=== PATIENT | female | born 1965 | race Two or more races ===

== ENCOUNTER 2020-02-20 13:15 | Outpatient (REF) | payer OTHER, SELFPAY ==
--- NOTE | 2020-02-20 13:19 | MM_ITS ---
EXAMINATION: MM SCREENING DIGITAL BREAST TOMOSYNTHESIS, BILATERAL CLINICAL INFORMATION: Screening. Asymptomatic. The lifetime risk of breast cancer based on the Tyrer-Cuzick Model is 4.7%. COMPARISON: Mammography: February 05, 2019 and studies dating back to February 24, 2015 TECHNIQUE: Digital breast tomosynthesis is performed in both the craniocaudal and mediolateral oblique views along with computer-aided detection (CAD). Synthesized 2D images are generated from the tomosynthesis. FINDINGS: There are scattered areas of fibroglandular density (ACR BI-RADS breast composition Category b). There are no significant masses, abnormal calcifications, or other abnormalities. There are stable bilateral circumscribed densities. MM/MM tomosynthesis screening BI IMPRESSION: There are no significant changes from prior study. ASSESSMENT: BI-RADS 1: Negative RECOMMENDATION: Routine annual mammography screening. This patient's information was entered into a reminder system with a target due date for their next mammogram.
== END 2020-02-20 13:16 | disposition home or self-care (01) ==
LOC: HO.MAMMO 13:15
PROVIDERS: PCP Family Medicine; Visit Provider Family Medicine
DX: Z12.31 Encounter for screening mammogram for malignant neoplasm of breast (principal)
CPT/HCPCS: 77063; 77067

== ENCOUNTER 2020-02-27 12:30 | Outpatient (REF) | payer OTHER, SELFPAY ==
--- NOTE | 2020-02-27 12:54 | XR_ITS ---
EXAMINATION: XR SHOULDER, LEFT CLINICAL INFORMATION: Shoulder pain. COMPARISON: None TECHNIQUE: AP external rotation, Grashey, scapular Y, and axillary views of the left shoulder. FINDINGS: Mild AC joint arthritis. No fracture. Glenohumeral and acromioclavicular alignment is anatomic with normal joint space. No abnormal soft tissue calcifications. XR/XR shoulder LT min 2V IMPRESSION: Mild AC joint arthritis.
[2020-02-27 13:53] LABS: TSH reflex Free T4 2.62 mIU/mL (0.32-4.0)
[2020-02-28 09:37] LABS: Thyroid Peroxidase Antibodies <1 IU/mL (<9)
== END 2020-02-27 12:31 | disposition home or self-care (01) ==
LOC: HO.LAB 12:30
PROVIDERS: PCP Family Medicine; Visit Provider Family Medicine
DX: R79.89 Other specified abnormal findings of blood chemistry (principal); M25.512 Pain in left shoulder
CPT/HCPCS: 36415; 73030; 84443; 86376

== ENCOUNTER 2020-03-20 | Outpatient (REF) | payer OTHER, SELFPAY ==
[2020-03-20 13:02] LABS: Alanine Aminotransferase 11 U/L (0-31); Albumin Level 4.2 g/dL (3.5-5.0); Alkaline Phosphatase 90 U/L (39-117); Aspartate Amino Transferase 9 U/L (5-31); Bilirubin Direct < 0.2 mg/dL (0.0-0.5); Bilirubin Total 0.4 mg/dL (0.0-1.0); Total Protein 6.9 g/dL (6.5-8.0)
[2020-03-26 13:27] LABS: Alpha Fetoprotein 4.6 ng/mL
== END 2020-03-20 00:01 | disposition home or self-care (01) ==
LOC: HO.LAB
PROVIDERS: PCP Family Medicine; Visit Provider Internal Medicine
DX: B18.2 Chronic viral hepatitis C (principal)
CPT/HCPCS: 80076; 82105

== ENCOUNTER 2020-03-20 09:49 | Outpatient (REF) | payer OTHER, SELFPAY ==
--- NOTE | 2020-03-20 | US_ITS ---
EXAMINATION: US ABDOMEN COMPLETE CLINICAL INFORMATION: Chronic hepatitis C. COMPARISON: Ultrasound abdomen complete 04/06/2019 and 04/20/2018. X-ray abdomen 02/11/2017. TECHNIQUE: Real-time imaging of the abdominal viscera. Technically limited study secondary to bowel gas and body habitus. FINDINGS: Exam is slightly limited due to body habitus and overlying bowel gas. PANCREAS: Partially visualized body of the pancreas is homogeneous in echotexture. The head and the tail is not seen. ABDOMINAL AORTA: The proximal, mid, and distal segments are normal in caliber. INFERIOR VENA CAVA: Visualized portions are normal. LIVER: The liver is normal in size. The liver contour is normal. Liver is diffusely echogenic No focal hepatic lesion. There is no intrahepatic biliary duct dilatation seen. GALLBLADDER: Surgically absent. COMMON BILE DUCT: Normal in caliber measuring 0.6 cm in diameter. RIGHT KIDNEY: Normal. No hydronephrosis. No renal calculi or focal parenchymal lesions. The kidney measures 10.3 cm in maximum dimension. LEFT KIDNEY: Normal. No hydronephrosis. No renal calculi or focal parenchymal lesions. The kidney measures 11.0 cm in maximum dimension. SPLEEN: Normal. The spleen measures 9.1 cm in maximum dimension. FREE FLUID: None. US/US abdomen complete IMPRESSION: Hepatic steatosis otherwise no focal lesion seen. Rest of the abdominal ultrasound is unremarkable.
== END 2020-03-20 09:50 | disposition home or self-care (01) ==
LOC: HO.US 09:49
PROVIDERS: PCP Family Medicine; Visit Provider Internal Medicine
DX: B18.2 Chronic viral hepatitis C (principal); K76.0 Fatty (change of) liver, not elsewhere classified
CPT/HCPCS: 76700

== ENCOUNTER 2020-05-01 15:00 | Outpatient (RCR) | payer OTHER, SELFPAY | END 2020-05-01 16:13 | disposition other institution (70) | LOC: HO.PT 15:00 | PROVIDERS: PCP Family Medicine; Visit Provider Family Medicine | DX: M25.512 Pain in left shoulder (principal); M25.511 Pain in right shoulder; M54.9 Dorsalgia, unspecified; G89.29 Other chronic pain | CPT/HCPCS: 97110; 97161 ==

== ENCOUNTER 2020-07-29 15:07 | Outpatient (REF) | payer OTHER, SELFPAY ==
--- NOTE | ~2020-07-29 | XR_ITS ---
EXAMINATION: XR KNEE, LEFT CLINICAL INFORMATION: Pain COMPARISON: None TECHNIQUE: Four views of the left knee. FINDINGS: Bones and soft tissues are normal. No fracture or joint effusion. Alignment is anatomic. Joint spaces are well maintained. No abnormal soft tissue calcification. XR/XR knee LT 4V IMPRESSION: Normal left knee.
== END 2020-07-29 15:08 | disposition home or self-care (01) ==
LOC: HO.XRAY 15:07
PROVIDERS: PCP Family Medicine; Visit Provider Family Medicine
DX: M25.562 Pain in left knee (principal)
CPT/HCPCS: 73564

== ENCOUNTER → 2020-10-21 12:27 | Outpatient (BNVA) | payer OTHER, SELFPAY | PROVIDERS: Visit Provider Physician Assistant | DX: M17.12 Unilateral primary osteoarthritis, left knee (principal) | CPT/HCPCS: 20610; 99202; J1020 ==

== ENCOUNTER 2020-12-16 14:00 | Outpatient (RCR) | payer OTHER, SELFPAY | END 2021-01-23 13:53 | disposition home or self-care (01) | LOC: HO.PT 14:00 | PROVIDERS: PCP Emergency Medicine; Visit Provider Emergency Medicine | DX: M25.562 Pain in left knee (principal) | CPT/HCPCS: 97110; 97140; 97150; 97161 ==

== ENCOUNTER 2021-03-09 13:36 | Outpatient (REF) | payer OTHER, SELFPAY ==
--- NOTE | ~2021-03-09 | MM_ITS ---
EXAMINATION: MM SCREENING DIGITAL BREAST TOMOSYNTHESIS, BILATERAL CLINICAL INFORMATION: Screening. Asymptomatic. The lifetime risk of breast cancer based on the Tyrer-Cuzick Model is 5%. COMPARISON: Mammography: 02/20/2020, 02/05/2019, 07/12/2018, 11/17/2017 TECHNIQUE: Digital breast tomosynthesis is performed in both the craniocaudal and mediolateral oblique views along with computer-aided detection (CAD). Synthesized 2D images are generated from the tomosynthesis. FINDINGS: There are scattered areas of fibroglandular density (ACR BI-RADS breast composition Category b). There are no significant masses, abnormal calcifications, or other abnormalities. Some of the calcifications posterior outer left breast are coarser. The axilla and skin contours are unremarkable. There are no significant changes. MM/MM tomosynthesis screening BI IMPRESSION: There are no significant changes from prior study. ASSESSMENT: BI-RADS 2: Benign RECOMMENDATION: Routine annual mammography screening. This patient's information was entered into a reminder system with a target due date for their next mammogram.
== END 2021-03-09 13:37 | disposition home or self-care (01) ==
LOC: HO.MAMMO 13:36
PROVIDERS: PCP Family Medicine; Visit Provider Family Medicine
DX: Z12.31 Encounter for screening mammogram for malignant neoplasm of breast (principal)
CPT/HCPCS: 77063; 77067

== ENCOUNTER 2021-06-30 09:35 | Outpatient (REF) | payer OTHER, SELFPAY ==
--- NOTE | ~2021-06-30 | US_ITS ---
EXAMINATION: US COMPLETE ABDOMEN WITH LIVER ELASTOGRAPHY CLINICAL INFORMATION: Chronic hepatitis C. COMPARISON: None. TECHNIQUE: Real-time imaging of the abdominal viscera. Noninvasive ultrasound liver fibrosis assessment is performed using Beverley ElastPQ point quantification shear wave elastography (2D-SWE) with a C5-2 MHz transducer. Multiple elastography samples are obtained. FINDINGS: PANCREAS: The visualized pancreatic head and body are normal in appearance. The tail of the pancreas is obscured from visualization by the overlying bowel gas. ABDOMINAL AORTA: The proximal, middle, and distal aortic segments are normal in caliber. INFERIOR VENA CAVA: Visualized portions are normal. LIVER: The liver demonstrates normal size, contour and echogenicity. No focal lesion or intrahepatic biliary duct dilatation. The right lobe measures 13.1 cm in length. The left lobe measures 10.0 cm in length. Portal flow is hepatopedal. Shear wave liver elastography median stiffness is 1.65 m/s (reference: normal median stiffness is 1.3 m/s or less). IQR/median stiffness to assess sampling precision is 0.09 (reference: good quality data set is IQR/median stiffness of 0.15 or less). GALLBLADDER: The gallbladder has been surgically removed. COMMON BILE DUCT: Normal in caliber measuring 0.5 cm in diameter. RIGHT KIDNEY: Normal. No hydronephrosis. No renal calculi or focal parenchymal lesions. The kidney measures 10.3 cm in maximum dimension. LEFT KIDNEY: Normal. No hydronephrosis. No renal calculi or focal parenchymal lesions. The kidney measures 10.0 cm in maximum dimension. SPLEEN: Normal. The spleen measures 9.3 cm in maximum dimension. FREE FLUID: None. US/US abdomen comp w elastography IMPRESSION: 1. Unremarkable complete abdomen ultrasound. Tail of pancreas is not visualized. The gallbladder has been surgically removed. 2. Liver elastography: Median liver stiffness measures 1.65 m/s corresponding to cACLD. REFERENCE: Society of Radiologists in Ultrasound Liver Stiffness Thresholds (2020): LIVER STIFFNESS THRESHOLDS: *Liver Stiffness equal or less than 1.3 m/s: High probability of being normal. *Liver Stiffness less than 1.7 m/s: In the absence of other known clinical signs, rules out compensated advanced chronic liver disease. *Liver Stiffness 1.7-2.1 m/s: Suggestive of compensated advanced chronic liver disease but need further test for confirmation. *Liver Stiffness over 2.1 m/s: Rules in compensated advanced chronic liver disease. *Liver Stiffness over 2.4 m/s: Suggestive of clinically significant portal hypertension. QUALITY OF DATA SET: *IQR/Median value equal or less than 0.15 implies a quality data set. *IQR/Median value over 0.15 implies a poor quality data set. SIGNIFICANT CHANGE FROM PRIOR EXAM: Significant change if liver stiffness measurement is 10% or greater from prior exam. OTHER CONSIDERATIONS: The stage of liver fibrosis may be overestimated in the setting of acute hepatitis, liver inflammation, elevated liver function tests, hepatic vascular congestion, obstructive cholestasis, non-fasting state, and infiltrative diseases such as amyloidosis and lymphoma. In some patients with NAFLD, the liver stiffness thresholds for compensated advanced chronic liver disease may be lower. In causes other than viral hepatitis and NAFLD, liver stiffness thresholds are not well established.
== END 2021-06-30 09:36 | disposition home or self-care (01) ==
LOC: HO.US 09:35
PROVIDERS: PCP Family Medicine; Visit Provider Internal Medicine
DX: B18.2 Chronic viral hepatitis C (principal)
CPT/HCPCS: 76705; 76981

== ENCOUNTER 2021-07-02 14:10 | Outpatient (REF) | payer OTHER, SELFPAY ==
[2021-07-02 14:21] LABS: MANUAL DIFF FLAG NO
[2021-07-02 14:47] LABS: Basophils Percent Auto 0.3 % (0-2); Eosinophils Absolute Auto 0.1 X10*3/uL (0.0-0.4); Eosinophils Percent Auto 1.2 % (0-4); Hematocrit 41.8 % (37.0-47.0); Hemoglobin 14.2 g/dl (12.0-16.0); Imm Gran Abs Auto 0.04 X10*3/uL (0.00-0.03); Imm Gran Pct Auto 0.5 % (0.0-0.4); Lymphocytes Absolute Auto 2.2 X10*3/uL (1.2-4.9); Lymphocytes Percent Auto 29.7 % (20-40); Mean Corpuscular Hemoglobin 31.4 pg (27.0-33.0); Mean Corpuscular Volume 92.5 fL (80.0-98.0); Mean Platelet Volume 11.6 fL (9.4-12.3); Monocytes Absolute Auto 0.4 X10*3/uL (0.1-1.2); Monocytes Percent Auto 5.9 % (2-11); Neutrophils Absolute Auto 4.6 x10*3/uL (2.0-8.3); Neutrophils Percent Auto 62.4 % (45-73); Platelet Count 255 X10*3/uL (160-400); Red Blood Count 4.52 X10*6/uL (4.20-5.50); White Blood Count 7.4 X10*3/uL (4.8-10.8)
[2021-07-02 14:55] LABS: INTERNATIONAL NORM RATIO 1.1 (0.9-1.1); Prothrombin Time 12.1 SEC (9.9-13.0)
[2021-07-02 15:10] LABS: Alanine Aminotransferase 16 U/L (0-31); Albumin Level 4.6 g/dL (3.5-5.0); Alkaline Phosphatase 92 U/L (39-117); Aspartate Amino Transferase 12 U/L (5-31); Bilirubin Direct 0.2 mg/dL (0.0-0.5); Bilirubin Total 0.5 mg/dL (0.0-1.0); Total Protein 7.4 g/dL (6.5-8.0)
[2021-07-05 08:31] LABS: HCV Log PCR <1.18 NOT DETECTED Log IU/mL (NOT DETECTED); HepC Viral Load <15 NOT DETECTED IU/mL (NOT DETECTED)
[2021-07-07 13:11] LABS: Alpha Fetoprotein 4.7 ng/mL
[2021-07-10 14:55] LABS: FIB-ALT 13 U/L (6-29); FIB-Alpha-2-Macroglobulin 386 mg/dL (106-279); FIB-Apolipoprotein A1 177 mg/dL (101-198); FIB-GGT 22 U/L (3-70); FIB-Haptoglobin 178 mg/dL (43-212); FIB-Total Bilirubin 0.5 mg/dL (0.2-1.2); Liver Fibrosis Score 0.31; Liver Fibrosis Stage F1-F2; Nec Inflam Act Grade A0; Nec Inflam Act Score 0.04
== END 2021-07-02 14:11 | disposition home or self-care (01) ==
LOC: HO.LAB 14:10
PROVIDERS: PCP Family Medicine; Visit Provider Internal Medicine
DX: B18.2 Chronic viral hepatitis C (principal)
CPT/HCPCS: 36415; 80076; 81596; 82105; 85025; 85610; 87522

== ENCOUNTER → 2022-02-22 13:59 | Outpatient (BNVA) | payer OTHER, SELFPAY | PROVIDERS: PCP Family Medicine; Visit Provider Urology | DX: R39.89 Other symptoms and signs involving the genitourinary system (principal); R39.198 Other difficulties with micturition | CPT/HCPCS: 51798; 99202 ==

== ENCOUNTER 2022-02-25 07:59 | Outpatient (REF) | payer OTHER, SELFPAY ==
--- NOTE | ~2022-02-25 | US_ITS ---
EXAMINATION: US ABDOMEN COMPLETE CLINICAL INFORMATION: Right upper quadrant pain. COMPARISON: Ultrasound abdomen complete 06/30/2021 and 03/20/2020. X-ray abdomen 02/11/2017. TECHNIQUE: Real-time imaging of the abdominal viscera. FINDINGS: PANCREAS: Normal. ABDOMINAL AORTA: The proximal, mid, and distal segments are normal in caliber. INFERIOR VENA CAVA: Visualized portions are normal. LIVER: Normal. The liver is normal in size. The liver contour is normal. Parenchymal echogenicity is normal. No focal hepatic lesion. There is no intrahepatic biliary duct dilatation seen. GALLBLADDER: Surgically absent. COMMON BILE DUCT: Normal in caliber measuring 0.7 cm in diameter. RIGHT KIDNEY: No hydronephrosis. No renal calculi or focal parenchymal lesions. The kidney measures 10.0 cm in maximum dimension. LEFT KIDNEY: No hydronephrosis. No renal calculi or focal parenchymal lesions. The kidney measures 10.4 cm in maximum dimension. SPLEEN: Normal. The spleen measures 8.6 cm in maximum dimension. FREE FLUID: None. US/US abdomen complete IMPRESSION: Unremarkable abdominal ultrasound.
== END 2022-02-25 08:00 | disposition home or self-care (01) ==
LOC: HO.US 07:59
PROVIDERS: Visit Provider Nurse Practitioner Primary Care
DX: R10.11 Right upper quadrant pain (principal)
CPT/HCPCS: 76700

== ENCOUNTER → 2022-03-03 14:07 | Outpatient (BNVA) | payer OTHER, SELFPAY | PROVIDERS: PCP Family Medicine; Visit Provider Surgery | DX: R22.42 Localized swelling, mass and lump, left lower limb (principal) | CPT/HCPCS: 99202 ==

== ENCOUNTER 2022-03-19 13:56 | Outpatient (REF) | payer OTHER, SELFPAY ==
--- NOTE | ~2022-03-19 | MM_ITS ---
EXAMINATION: MM SCREENING DIGITAL BREAST TOMOSYNTHESIS, BILATERAL CLINICAL INFORMATION: Screening. Asymptomatic. The lifetime risk of breast cancer based on the Tyrer-Cuzick Model is 6%. COMPARISON: Mammography: 03/09/2021, 02/20/2020, 02/05/2019 TECHNIQUE: Digital breast tomosynthesis is performed in both the craniocaudal and mediolateral oblique views along with computer-aided detection (CAD). Synthesized 2D images are generated from the tomosynthesis. FINDINGS: There are scattered areas of fibroglandular density (ACR BI-RADS breast composition Category b). Parenchymal pattern is similar to prior exams. Minor bilateral asymmetries are stable. No developing density or architectural abnormality. There are scattered bilateral calcifications. No abnormal calcifications. The axilla and skin contours are unremarkable. No significant changes from prior exams. MM/MM tomosynthesis screening BI IMPRESSION: No mammographic evidence of malignancy. ASSESSMENT: BI-RADS 2: Benign RECOMMENDATION: Routine annual mammography screening. This patient's information was entered into a reminder system with a target due date for their next mammogram.
== END 2022-03-19 13:57 | disposition home or self-care (01) ==
LOC: HO.MAMMO 13:56
PROVIDERS: PCP Family Medicine; Visit Provider Family Medicine
DX: Z12.31 Encounter for screening mammogram for malignant neoplasm of breast (principal)
CPT/HCPCS: 77063; 77067

== ENCOUNTER 2022-03-25 10:37 | Outpatient (REF) | payer OTHER, SELFPAY | END 2022-03-25 10:38 | disposition home or self-care (01) | LOC: HO.LNP 10:37 | PROVIDERS: PCP Family Medicine; Visit Provider Surgery | DX: R22.42 Localized swelling, mass and lump, left lower limb (principal) | CPT/HCPCS: 11401; 11402; 88304 ==

== ENCOUNTER → 2022-04-07 13:18 | Outpatient (BNVA) | payer OTHER, SELFPAY | PROVIDERS: PCP Family Medicine; Visit Provider Surgery | DX: Z13.89 Encounter for screening for other disorder (principal) ==

== ENCOUNTER 2022-06-29 12:41 | Emergency (ER) | payer OTHER, SELFPAY ==
[2022-06-29 13:29] VITALS: BP 172/85; PULSE 80; RESP 18; TEMP 36.6; O2SAT 97; BMI 31.6
--- NOTE | 2022-06-29 16:22 | ED.DIZZY ---
HPI - Dizziness General Chief Complaint: Dizziness Stated Complaint: dizziness Time Seen by Provider: 06/29/22 16:22 Source: patient Mode of arrival: ambulatory Limitations: no limitations History of Present Illness HPI Narrative: Patient has history of diabetes been having vertiginous feeling for last 3 weeks seen at walk[facility] prescribed meclizine plan to follow-up with therapist still complaining of dizziness with tinnitus in the right ear also has mild headache no other neuro deficit patient had vertigo years ago 1 time had some nausea Related Data Home Medications Medication Instructions Recorded Confirmed atorvastatin 10 mg tablet 10 mg PO DAILY 02/18/22 03/25/22 cholecalciferol (vitamin D3) 50 50 mcg PO DAILY 02/18/22 03/25/22 mcg (2,000 unit) capsule omeprazole 20 mg capsule,delayed 20 mg PO DAILY 02/18/22 03/25/22 release terbinafine HCl 250 mg tablet 250 mg PO DAILY 02/18/22 03/25/22 valsartan 160 mg tablet 160 mg PO DAILY 02/18/22 03/25/22 valsartan 80 mg tablet 80 mg PO DAILY 02/18/22 03/25/22 vitamin B complex (Vitamins B 1 tab PO DAILY 02/18/22 03/25/22 Complex tablet) dulaglutide 3 mg/0.5 mL 3 mg subcut QWEEK 03/31/22 subcutaneous pen injector (Trulicity) ipratropium bromide 42 mcg (0.06 2 spray intranasal QID 03/31/22 %) nasal spray melatonin 5 mg tablet 5 mg PO BEDTIME 03/31/22 mometasone-formoterol HFA 200 2 puff inhalation Q12H 03/31/22 mcg-5 mcg/actuation aerosol inhaler (Dulera) nitroglycerin 0.4 mg sublingual 0.4 mg sublingual Q5M PRN 03/31/22 tablet oxycodone-acetaminophen 5 mg-325 1 tab PO BID PRN 03/31/22 mg tablet Previous Rx's Medication Instructions Recorded tamsulosin 0.4 mg capsule 0.4 mg PO BEDTIME #30 caps 03/17/22 ibuprofen 400 mg tablet 400 mg PO TID PRN pain #14 tabs 04/07/22 meclizine 25 mg tablet 25 mg PO TID PRN dizziness #20 tabs 06/29/22 Allergies Allergy/AdvReac Type Severity Reaction Status Date / Time cyclobenzaprine Allergy Intermediate HIVES Unverified 04/07/22 13:35 [From FLEXERIL] latex [LATEX] Allergy Intermediate RASH Unverified 04/07/22 13:35 aspirin [Aspirin] Allergy Mild UNKNOWN Unverified 04/07/22 13:35 azithromycin [From Zithromax] Allergy Mild SWELLING Unverified 04/07/22 13:35 glipizide [From Glucotrol] Allergy Mild SWELLING Unverified 04/07/22 13:35 levofloxacin [From Levaquin] Allergy Mild leg Unverified 04/07/22 13:35 swelling rosiglitazone [Avandia] Allergy Unknown rash Verified 04/07/22 13:35 From AVANDIA Allergy Severe HEPATITIS C Uncoded 04/07/22 13:35 Flexeril Allergy Unknown Rash Uncoded 04/07/22 13:35 Review of Systems Review of Systems: Yes all other systems are reviewed and are negative PMFSH Past Medical History Medical History Calcaneal spur, unspecified foot Hernia Subcutaneous mass of left foot Surgical History History of liver biopsy History of repair of rotator cuff Family History Family History Father Gastric cancer Mother Coronary disease Social History Social History Alcohol intake: never Advance Directives: No Advance Directives Information Provided: Yes Current occupational status: disabled Current occupation: rt handed Physical Exam Vital Signs: Vital Signs: Last Vital Signs Temp 97.9 F 06/29/22 13:29 Pulse 80 06/29/22 13:29 Resp 18 06/29/22 13:29 BP 172/85 H 06/29/22 13:29 Pulse Ox 97 06/29/22 13:29 O2 Del Method 06/29/22 13:29 BMI result Body Mass Index 31.6 Appearance: Alert. Oriented X3. No acute distress. Eyes: PERRLA, No Nystagmus ENT: Pharynx normal. Oral Mucosa moist Neck: Normal inspection. Neck supple. CVS: Normal heart rate and rhythm. Pulses normal. Respiratory: No respiratory distress. Equal air entry bilateral, no wheezing/rales/rhonchi Abdomen: Soft and nontender. Bowel sounds are present, Skin: Skin warm and dry. Normal skin color. Normal skin turgor. Extremities: No lower extremity edema. No calf tenderness Neuro: Oriented X 3. No motor deficit. No sensory deficit.No cerebellar signs , cranial nerves II-XII intact Medical Decision Making Medical Decision Making [facility] Narrative: Patient clinically benign positional vertigo on the right side modified Aisha maneuver was done patient felt slightly better another prescription meclizine was given advised to follow up with therapist Discharge Plan Discharge Clinical Impression: Benign paroxysmal positional vertigo Patient Disposition: Home, Self-Care Instructions: Benign Paroxysmal Positional Vertigo (ED) Additional Instructions: Care and cautious as advised Take meclizine 1 tablet every 8 hours as needed Follow-up with your therapist to help in vertigo Modified Aisha manever Exercises as advised Prescriptions: New meclizine 25 mg tablet 25 mg PO TID PRN (Reason: dizziness) Qty: 20 0RF No Action tamsulosin 0.4 mg capsule 0.4 mg PO BEDTIME Qty: 30 1RF valsartan 160 mg tablet 160 mg PO DAILY terbinafine HCl 250 mg tablet 250 mg PO DAILY vitamin B complex [Vitamins B Complex] Tablet 1 tab PO DAILY atorvastatin 10 mg tablet 10 mg PO DAILY omeprazole 20 mg capsule,delayed release(DR/EC) 20 mg PO DAILY cholecalciferol (vitamin D3) 50 mcg (2,000 unit) capsule 50 mcg PO DAILY valsartan 80 mg tablet 80 mg PO DAILY ibuprofen 400 mg tablet 400 mg PO TID PRN (Reason: pain) Qty: 14 0RF oxycodone-acetaminophen 5-325 mg tablet 1 tab PO BID PRN melatonin 5 mg tablet 5 mg PO BEDTIME nitroglycerin 0.4 mg tablet, sublingual 0.4 mg sublingual Q5M PRN Rx Instructions: do not exceed 3 doses per episode ipratropium bromide 42 mcg (0.06 %) spray,non-aerosol 2 spray intranasal QID Rx Instructions: administer into each nostril Dulera 200-5 mcg/actuation HFA aerosol inhaler 2 puff inhalation Q12H Trulicity 3 mg/0.5 mL pen injector 3 mg subcut QWEEK
[2022-06-29 17:02] VITALS: BP 182/99; PULSE 72; RESP 16; O2SAT 99
[2022-06-29] MEDS: Meclizine HCl 25 MG TABLET PO (17:04)
== END 2022-06-29 17:09 | disposition home or self-care (01) ==
PROVIDERS: Emergency Provider Internal Medicine; PCP Family Medicine
DX: H81.10 Benign paroxysmal vertigo, unspecified ear (principal); Z79.899 Other long term (current) drug therapy
CPT/HCPCS: 99283

== ENCOUNTER 2022-07-20 14:07 | Outpatient (RCR) | payer OTHER, SELFPAY ==
[2022-07-20 14:20] VITALS: BP 142/74; PULSE 95
== END 2022-08-26 13:09 | disposition home or self-care (01) ==
LOC: HO.PT 14:07
PROVIDERS: PCP Family Medicine; Visit Provider Family Medicine
DX: H81.10 Benign paroxysmal vertigo, unspecified ear (principal)
CPT/HCPCS: 97161

== ENCOUNTER 2022-07-27 15:41 | Outpatient (REF) | payer OTHER, SELFPAY ==
--- NOTE | ~2022-07-27 | XR_ITS ---
EXAMINATION: XR HIP, BILATERAL CLINICAL INDICATIONS: Hip pain. COMPARISON: Pelvis and right hip 12/10/2016 TECHNIQUE: 2 views each hip. FINDINGS: RIGHT HIP: The right hip joint space is maintained. No bony erosive changes, acute fracture or lytic process seen. The soft tissues are normal. LEFT HIP: There is no visible acute fracture, dislocation or subluxation seen. There is no bony erosive changes, acute fracture or dislocation. No loose bodies or spurring. XR/XR hip RT min 2V IMPRESSION: 1. Unremarkable right hip exam. 2. Unremarkable left hip exam.
--- NOTE | ~2022-07-27 | XR_ITS ---
EXAMINATION: XR HIP, BILATERAL CLINICAL INDICATIONS: Hip pain. COMPARISON: Pelvis and right hip 12/10/2016 TECHNIQUE: 2 views each hip. FINDINGS: RIGHT HIP: The right hip joint space is maintained. No bony erosive changes, acute fracture or lytic process seen. The soft tissues are normal. LEFT HIP: There is no visible acute fracture, dislocation or subluxation seen. There is no bony erosive changes, acute fracture or dislocation. No loose bodies or spurring. XR/XR hip LT min 2V IMPRESSION: 1. Unremarkable right hip exam. 2. Unremarkable left hip exam.
== END 2022-07-27 15:42 | disposition home or self-care (01) ==
LOC: HO.XRAY 15:41
PROVIDERS: PCP Family Medicine; Visit Provider Family Medicine
DX: M25.551 Pain in right hip (principal); M25.552 Pain in left hip
CPT/HCPCS: 73502

== ENCOUNTER 2022-08-06 10:35 | Outpatient (REF) | payer OTHER, SELFPAY ==
--- NOTE | ~2022-08-06 | US_ITS ---
EXAMINATION: US COMPLETE ABDOMEN WITH LIVER ELASTOGRAPHY CLINICAL INFORMATION: History of hepatitis C COMPARISON: Previous exams most recent February 2022 TECHNIQUE: Real-time imaging of the abdominal viscera. Noninvasive ultrasound liver fibrosis assessment is performed using Beverley ElastPQ point quantification shear wave elastography (2D-SWE) with a C5-2 MHz transducer. Multiple elastography samples are obtained. FINDINGS: PANCREAS: Normal. ABDOMINAL AORTA: The proximal, middle, and distal aortic segments are normal in caliber. INFERIOR VENA CAVA: Visualized portions are normal. LIVER: Normal. The liver demonstrates normal size, contour and echogenicity. No focal lesion or intrahepatic biliary duct dilatation. The right lobe measures 13 cm in length. The left lobe measures 9 cm in length. Portal flow is normal/hepatopedal Shear wave liver elastography median stiffness is 1.6 m/s (reference: normal median stiffness is 1.3 m/s or less). IQR/median stiffness to assess sampling precision is 0.07 (reference: good quality data set is IQR/median stiffness of 0.15 or less). GALLBLADDER: Surgically removed COMMON BILE DUCT: Normal in caliber measuring 0.8 cm in diameter. RIGHT KIDNEY: Normal. No hydronephrosis. No renal calculi or focal parenchymal lesions. The kidney measures 9.4 cm in maximum dimension. LEFT KIDNEY: Normal. No hydronephrosis. No renal calculi or focal parenchymal lesions. The kidney measures 9.8 cm in maximum dimension. SPLEEN: Normal. The spleen measures 9.1 cm in maximum dimension. FREE FLUID: None. US/US abdomen comp w elastography IMPRESSION: 1. Impression: Unremarkable postcholecystectomy ultrasound. No evidence of cirrhosis or focal liver lesion. 2. Liver elastography: Adequate liver sampling. In the absence of other known clinical signs, rules out compensated advanced chronic liver disease. REFERENCE: Society of Radiologists in Ultrasound Liver Stiffness Thresholds (2020): LIVER STIFFNESS THRESHOLDS: *Liver Stiffness equal or less than 1.3 m/s: High probability of being normal. *Liver Stiffness less than 1.7 m/s: In the absence of other known clinical signs, rules out compensated advanced chronic liver disease. *Liver Stiffness 1.7-2.1 m/s: Suggestive of compensated advanced chronic liver disease but need further test for confirmation. *Liver Stiffness over 2.1 m/s: Rules in compensated advanced chronic liver disease. *Liver Stiffness over 2.4 m/s: Suggestive of clinically significant portal hypertension. QUALITY OF DATA SET: *IQR/Median value equal or less than 0.15 implies a quality data set. *IQR/Median value over 0.15 implies a poor quality data set. SIGNIFICANT CHANGE FROM PRIOR EXAM: Significant change if liver stiffness measurement is 10% or greater from prior exam. OTHER CONSIDERATIONS: The stage of liver fibrosis may be overestimated in the setting of acute hepatitis, liver inflammation, elevated liver function tests, hepatic vascular congestion, obstructive cholestasis, non-fasting state, and infiltrative diseases such as amyloidosis and lymphoma. In some patients with NAFLD, the liver stiffness thresholds for compensated advanced chronic liver disease may be lower. In causes other than viral hepatitis and NAFLD, liver stiffness thresholds are not well established.
== END 2022-08-06 10:36 | disposition home or self-care (01) ==
LOC: HO.US 10:35
PROVIDERS: PCP Family Medicine; Visit Provider Internal Medicine
DX: Z86.19 Personal history of other infectious and parasitic diseases (principal)
CPT/HCPCS: 76705; 76981

== ENCOUNTER 2022-09-14 13:35 | Outpatient (REF) | payer OTHER, SELFPAY ==
--- NOTE | ~2022-09-14 | CT_ITS ---
EXAMINATION: CT ABDOMEN AND PELVIS WITH CONTRAST CLINICAL INFORMATION: Abdominal pain. History of diverticulitis. COMPARISON: Ultrasound abdomen complete with elastography. TECHNIQUE: Multidetector volumetric images were obtained from the superior aspect of the liver through the pubic symphysis following administration 85 mL of Omnipaque 350 intravenous contrast. Sagittal and coronal reformatted images were obtained on the technologist's workstation. Oral contrast: No This CT examination was performed using dose optimization techniques as appropriate, variously including the following: *Automated exposure control *Adjustment of mA and/or kV according to patient size (this includes techniques or standardized protocols for targeted exams where dose is matched to indication/reason for exam; i.e. extremities or head) *Use of iterative reconstruction technique DLP: 403 mGy-cm FINDINGS: LUNG BASES: There is plate-like atelectasis or scarring in the left lung base. LIVER, GALLBLADDER, AND BILIARY TREE: The liver is normal in size, shape, and attenuation. No focal hepatic lesion or biliary ductal dilatation is present. The gallbladder has been surgically removed. PANCREAS: Unremarkable. SPLEEN: Unremarkable. ADRENAL GLANDS: Unremarkable. KIDNEYS AND URETERS: The kidneys are normal in size, shape, and attenuation. No hydronephrosis, hydroureter, or calculi seen. No perinephric stranding. BLADDER: Unremarkable. GASTROINTESTINAL TRACT: There is scattered stool, diverticuli and gas seen throughout the colon without any significant distention. The small bowel loops are normal caliber. Appendix is not visualized well. ABDOMINAL WALL: There is a lower midline anterior abdominal wall hernia containing fat on axial image 55/3. The neck is 1.7 cm wide. LYMPH NODES: Normal. VASCULAR: Unremarkable. PELVIC VISCERA: Unremarkable. OSSEOUS STRUCTURES: No aggressive lytic or sclerotic process seen. Mild facet joint arthropathy seen L5-S1 disc level. CT/CT abdomen pelvis w IV con IMPRESSION: 1. No acute intra-abdominal process seen. 2. Scattered colonic diverticulosis without diverticulitis. 3. Lower midline anterior abdominal wall hernia containing fat. Fleischner guidelines were followed.
[2022-09-15 06:55] LABS: Creatinine POC 0.5 mg/dL (0.5-1.4); GFR POC 60
== END 2022-09-14 13:36 | disposition home or self-care (01) ==
LOC: HO.CT 13:35
PROVIDERS: PCP Family Medicine; Visit Provider Family Medicine
DX: R10.31 Right lower quadrant pain (principal)
CPT/HCPCS: 74177; 82565

== ENCOUNTER 2022-12-06 12:44 | Outpatient (REF) | payer OTHER, SELFPAY ==
--- NOTE | ~2022-12-06 | XR_ITS ---
EXAMINATION: BILATERAL HIPS CLINICAL INFORMATION: Additional Information: PT STATES CHRONIC HIP PAIN FOR YEARS. COMPARISON: 07/27/2022 TECHNIQUE: AP supine neutral and frog-leg lateral views of both hips are provided. FINDINGS: The appearance of the capital femoral epiphyses is symmetric. Both femoral heads are seated within well formed acetabula. The acetabular indices are normal bilaterally. Shenton's lines are intact. Normal mineralization is present. No subluxation is demonstrable on the frog-leg lateral projection. XR/XR hip RT min 2V IMPRESSION: Unremarkable bilateral hip radiographs.
--- NOTE | ~2022-12-06 | XR_ITS ---
EXAMINATION: BILATERAL HIPS CLINICAL INFORMATION: Additional Information: PT STATES CHRONIC HIP PAIN FOR YEARS. COMPARISON: 07/27/2022 TECHNIQUE: AP supine neutral and frog-leg lateral views of both hips are provided. FINDINGS: The appearance of the capital femoral epiphyses is symmetric. Both femoral heads are seated within well formed acetabula. The acetabular indices are normal bilaterally. Shenton's lines are intact. Normal mineralization is present. No subluxation is demonstrable on the frog-leg lateral projection. XR/XR hip LT min 2V IMPRESSION: Unremarkable bilateral hip radiographs.
== END 2022-12-06 12:45 | disposition home or self-care (01) ==
LOC: HO.HHCX 12:44
PROVIDERS: Visit Provider Family Medicine
DX: M25.551 Pain in right hip (principal); M25.552 Pain in left hip
CPT/HCPCS: 73502

== ENCOUNTER 2022-12-09 11:26 | Outpatient (REF) | payer OTHER, SELFPAY ==
[2022-12-09 14:29] LABS: Alanine Aminotransferase 15 U/L (0-31); Albumin Level 4.2 g/dL (3.5-5.0); Alkaline Phosphatase 83 U/L (39-117); Anion Gap 11 (12-20); Aspartate Amino Transferase 15 U/L (5-31); Bilirubin Total 0.4 mg/dL (0.0-1.0); Blood Urea Nitrogen 13 mg/dL (9-16); Calcium 9.6 mg/dL (8.4-10.2); Carbon Dioxide 28 mmol/L (22-29); Chloride 107 mmol/L (96-108); Estimated Glomerular Filt Rate > 60; Glucose Random 91 mg/dL (60-115); Potassium 3.3 mmol/L (3.3-5.1); Sodium 143 mmol/L (135-145); Total Protein 7.2 g/dL (6.5-8.0)
[2022-12-09 14:34] LABS: TSH reflex Free T4 2.03 uIU/mL (0.32-4.0)
[2022-12-09 15:10] LABS: Cholesterol 207 mg/dL (<200); HDL Cholesterol 51 mg/dL (>40); LDL Cholesterol Calculated 136 mg/dL (<100); Triglycerides 100 mg/dL (<150)
[2022-12-09 16:08] LABS: Folate 11.9 ng/mL (> or = 4.0); Vitamin B12 411 pg/mL (200-900)
[2022-12-09 16:39] LABS: Creatinine Urine 170.12 mg/dL; Microalbum/Creatinine Ratio Ur 8.8 ug/mg cr (<30)
[2022-12-09 17:46] LABS: Reflex LDLD? No
== END 2022-12-09 11:27 | disposition home or self-care (01) ==
LOC: HO.HHCL 11:26
PROVIDERS: Visit Provider Family Medicine
DX: E11.42 Type 2 diabetes mellitus with diabetic polyneuropathy (principal); Z79.4 Long term (current) use of insulin
CPT/HCPCS: 36415; 80053; 80061; 82043; 82607; 82746; 84443

== ENCOUNTER 2022-12-21 14:11 | Outpatient (REF) | payer OTHER, SELFPAY ==
--- NOTE | ~2022-12-21 | XR_ITS ---
EXAMINATION: XR SHOULDER, RIGHT CLINICAL INFORMATION: Pain in right shoulder COMPARISON: Right shoulder radiographs 12/27/2018 TECHNIQUE: AP external rotation, Grashey, scapular Y, and axillary views of the right shoulder. FINDINGS: There is mild acromioclavicular osteoarthritis. Glenohumeral joint is well preserved. No fracture. Alignment is anatomic. Soft tissues are normal with no abnormal calcifications. XR/XR shoulder RT min 2V IMPRESSION: Mild acromioclavicular osteoarthritis, no acute abnormality of right shoulder.
== END 2022-12-21 14:12 | disposition home or self-care (01) ==
LOC: HO.HOSX 14:11
PROVIDERS: Visit Provider Orthopaedic Surgery
DX: M25.511 Pain in right shoulder (principal)
CPT/HCPCS: 73030; 99202

== ENCOUNTER 2022-12-21 14:18 | Outpatient (AMB) | payer OTHER, SELFPAY ==
--- NOTE | 2022-12-21 14:35 | A.OFFVIS_ITS ---
Intake Intake Visit Reasons: [employer]OR- Chronic Right Shoulder Pain Intake Note: Pt presents to the office today for a new pt visit for chronic right shoulder pain and weakness. Patient states that she 1st injured her shoulder approximately 20 years ago. She had a surgery on her right shoulder in 2004. The patient states that since that time her shoulder has ?not felt normal. Patient states that she has weakness when lifting her right hand above shoulder height. She has had multiple injections. The most recent injection gave her minimal relief. She has also done physical therapy for 12 weeks over the last 6 months which aggravated her pain. She has tried Tylenol and anti-inflammatory medicines which gave her minimal relief. Allergies cyclobenzaprine [From FLEXERIL] Allergy (Intermediate, Unverified 12/21/22 14:36) HIVES latex [LATEX] Allergy (Intermediate, Unverified 12/21/22 14:36) RASH aspirin [Aspirin] Allergy (Mild, Unverified 12/21/22 14:36) UNKNOWN azithromycin [From Zithromax] Allergy (Mild, Unverified 12/21/22 14:36) SWELLING glipizide [From Glucotrol] Allergy (Mild, Unverified 12/21/22 14:36) SWELLING levofloxacin [From Levaquin] Allergy (Mild, Unverified 12/21/22 14:36) leg swelling rosiglitazone [Avandia] Allergy (Unknown, Verified 12/21/22 14:36) rash From AVANDIA Allergy (Severe, Uncoded 12/21/22 14:36) HEPATITIS C Flexeril Allergy (Unknown, Uncoded 12/21/22 14:36) Rash Medication List - Last Reconciled 12/21/22 by Pravin Guardado MD cholecalciferol (vitamin D3) 50 mcg PO DAILY diclofenac sodium 1% (Arthritis Pain (diclofenac)) 2 grams topical QID dicyclomine 10 - 20 mg PO Q6H PRN dulaglutide (Trulicity) 3 mg subcut QWEEK ibuprofen 400 mg PO TID PRN ipratropium bromide 2 sprays intranasal QID meclizine 25 mg PO TID PRN melatonin 5 mg PO BEDTIME metoprolol succinate ER 50 mg PO QAM mometasone-formoterol 200-5 mcg/actuation (Dulera) 2 puffs inhalation Q12H naloxone 4 mg/actuation 0 sprays intranasal nitroglycerin 0.4 mg sublingual Q5M PRN omeprazole 20 mg PO DAILY oxycodone-acetaminophen 5-325 mg 1 tab PO BID PRN pregabalin 75 mg PO BID tamsulosin 0.4 mg PO BEDTIME terbinafine HCl 250 mg PO DAILY valsartan 160 mg PO DAILY vitamin B complex (Vitamins B Complex tablet) 1 tab PO DAILY PFSH Medical History Calcaneal spur, unspecified foot Hernia Subcutaneous mass of left foot Surgical History (Updated 12/21/22 @ 14:43 by Radha Guerin MA) H/O tubal ligation History of carpal tunnel surgery of left wrist History of carpal tunnel surgery of right wrist History of cholecystectomy History of liver biopsy History of repair of rotator cuff Hx of rotator cuff surgery Family History Father Gastric cancer Mother Coronary disease Social History Alcohol intake: never Current occupational status: disabled Current occupation: rt handed Physical Exam Const Other: Well-nourished well-developed very friendly female awake alert and oriented x3 in no acute distress Extrem Other: Bilateral upper extremity examination shows good capillary refill, no skin lesions noted, normal sensation light touch Right shoulder examination shows decreased range of motion when compared to her left shoulder, 4/5 strength with supraspinatus testing, positive impingement signs, tenderness over her acromioclavicular joint, no instability Results Reviewed Results Reviewed: X-rays of the patient's right shoulder show severe acromioclavicular joint narro wing, a type 2 acromion, no acute bony abnormalities Assessment & Plan Assessment & Plan (1) Right shoulder pain: Code(s): M25.511 - Pain in right shoulder Plan: Ms. Tejada presents with progressively worsening right shoulder pain and weak ness possibly due to a full-thickness rotator cuff tear. Thus, I will send the patient for an MRI of her right shoulder for further evaluation. If she does have a full-thickness tear I will recommend surgical repair to optimize her future functional level. She will continue with her home stretching program in the meantime to prevent stiffness. Feel free to call me at any time should questions regarding her orthopedic management arise. Thank you very much for asking to see this very I spent 22 minutes in reviewing the patient's records and imaging studies, seeing the patient and documenting in the medical record. Orders: Orders XR shoulder RT min 2V Today M25.511 - Pain in right shoulder MR shoulder RT wo con Today M25.511 - Pain in right shoulder Coding Level of Care Code New Pt Level 2 (20248) Diagnoses Right shoulder pain M25.511
== END 2022-12-21 14:56 | disposition home or self-care (01) ==
PROVIDERS: PCP Family Medicine; Visit Provider Orthopaedic Surgery
DX: M25.511 Pain in right shoulder (principal)
CPT/HCPCS: 99202

== ENCOUNTER 2023-03-22 13:57 | Outpatient (REF) | payer OTHER, SELFPAY ==
--- NOTE | ~2023-03-22 | MM_ITS ---
EXAMINATION: MM SCREENING DIGITAL BREAST TOMOSYNTHESIS, BILATERAL CLINICAL INFORMATION: Screening. Asymptomatic. COMPARISON: Mammography: This study is compared with prior exams dating back to 2018. TECHNIQUE: Digital breast tomosynthesis is performed in both the craniocaudal and mediolateral oblique views along with computer-aided detection (CAD). Synthesized 2D images are generated from the tomosynthesis. FINDINGS: There are scattered areas of fibroglandular density (ACR BI-RADS breast composition Category b). There are no significant masses, abnormal calcifications, or other abnormalities. Bilateral benign calcifications are present. MM/MM tomosynthesis screening BI IMPRESSION: No mammographic evidence of malignancy. ASSESSMENT: BI-RADS BI-RADS 2 - Benign Findings RECOMMENDATION: Routine annual mammography screening. 1 year F/U This examination should not preclude the clinical evaluation of a suspicious palpable abnormality. This patient's information was entered into a reminder system with a target due date for their next mammogram.
== END 2023-03-22 13:58 | disposition home or self-care (01) ==
LOC: HO.MAMMO 13:57
PROVIDERS: PCP Family Medicine; Visit Provider Family Medicine
DX: Z12.31 Encounter for screening mammogram for malignant neoplasm of breast (principal)
CPT/HCPCS: 77063; 77067

== ENCOUNTER → 2023-03-22 14:00 | Outpatient (BNV) | payer OTHER, SELFPAY | PROVIDERS: PCP Family Medicine; Visit Provider Radiology Diagnostic Radiology | DX: Z12.31 Encounter for screening mammogram for malignant neoplasm of breast (principal) | CPT/HCPCS: 77063; 77067 ==

== ENCOUNTER 2023-04-26 19:09 | Outpatient (REF) | payer OTHER, SELFPAY ==
--- NOTE | ~2023-04-26 | MR_ITS ---
EXAMINATION: MR SHOULDER WITHOUT CONTRAST, RIGHT CLINICAL INFORMATION: Pain in the right shoulder. Patient reports prior rotator cuff surgery. COMPARISON: X-ray the right shoulder December 2022. MRI of the right shoulder October 2007 (report only). TECHNIQUE: MRI of the shoulder without contrast was performed on a high-field scanner. FINDINGS: ROTATOR CUFF: There are postsurgical changes in the humeral head/tuberosity junction, rotator cuff and surrounding soft tissues compatible with prior rotator cuff surgery. Infraspinatus: There is heterogeneous increased signal noted throughout the tendon compatible tendinosis and possible small scattered areas of intrasubstance partial tearing but no measurable defect or tendon retraction. Metallic artifact partially obscures the anterior leading edge. The muscle is normal. The remaining rotator cuff muscles and tendons are normal. BICEPS: There is mild enlargement and heterogeneous increased signal within the inferior articular portion of the biceps compatible with tendinosis and intrasubstance tendinous partial tearing . no measurable defect or tendon retraction. CORACOACROMIAL ARCH: There is attenuation of the anterior aspect of the acromion with slight concavity likely reflecting prior acromioplasty. Mild arthrosis of the acromioclavicular joint. BURSA: Normal. LABRUM/CAPSULE: Normal. GLENOHUMERAL JOINT/MARROW: Normal. MR/MR shoulder RT wo con IMPRESSION: 1. Postsurgical changes related to prior rotator cuff surgery and acromioplasty. 2. Mild abnormality of the supraspinatus compatible with tendinosis and perhaps small scattered areas of intrasubstance partial tearing but no measurable defect or tendon retraction. Evaluation of the anterior tendon including insertion is limited by metallic artifact partially obscuring this portion of the tendon. 3. Tendinosis and intrasubstance partial tearing of the biceps tendon. 4. Mild arthrosis of the acromioclavicular joint.
== END 2023-04-26 19:10 | disposition home or self-care (01) ==
LOC: HO.MRI 19:09
PROVIDERS: PCP Family Medicine; Visit Provider Orthopaedic Surgery
DX: M25.511 Pain in right shoulder (principal)
CPT/HCPCS: 73221

== ENCOUNTER 2023-05-03 11:01 | Outpatient (AMB) | payer OTHER, SELFPAY ==
--- NOTE | 2023-05-03 11:03 | A.OFFVIS_ITS ---
Intake Intake Visit Reasons: ov-MRI Shoulder RT review Intake Note: Ameena is a 58 year old female who presents with complaints of progressively worsening right shoulder pain. The patient states that she 1st injured her shoulder approximately 20 years ago. She had surgery on her right shoulder in 2004. Since that time her shoulder has ?not felt normal?. She has done physical therapy exercises which aggravated her pain. The patient reports difficulty lifting her right hand above shoulder height. She has had injections in the past which gave her minimal relief. She has also tried Tylenol and anti- inflammatory medicines which gave her only mild relief. Allergies cyclobenzaprine [From FLEXERIL] Allergy (Intermediate, Verified 05/03/23 11:03) HIVES latex [LATEX] Allergy (Intermediate, Verified 05/03/23 11:03) RASH aspirin [Aspirin] Allergy (Mild, Verified 05/03/23 11:03) UNKNOWN azithromycin [From Zithromax] Allergy (Mild, Verified 05/03/23 11:03) SWELLING glipizide [From Glucotrol] Allergy (Mild, Verified 05/03/23 11:03) SWELLING levofloxacin [From Levaquin] Allergy (Mild, Verified 05/03/23 11:03) leg swelling rosiglitazone [Avandia] Allergy (Unknown, Verified 05/03/23 11:03) rash From AVANDIA Allergy (Severe, Uncoded 12/21/22 14:36) HEPATITIS C Flexeril Allergy (Unknown, Uncoded 12/21/22 14:36) Rash Medication List - Last Reconciled 05/03/23 by Pravin Guardado MD cholecalciferol (vitamin D3) 50 mcg PO DAILY diclofenac sodium 1% (Arthritis Pain (diclofenac)) 2 grams topical QID dicyclomine 10 - 20 mg PO Q6H PRN dulaglutide (Trulicity) 3 mg subcut QWEEK ibuprofen 400 mg PO TID PRN ipratropium bromide 2 sprays intranasal QID meclizine 25 mg PO TID PRN melatonin 5 mg PO BEDTIME metoprolol succinate ER 50 mg PO QAM mometasone-formoterol 200-5 mcg/actuation (Dulera) 2 puffs inhalation Q12H naloxone 4 mg/actuation 0 sprays intranasal nitroglycerin 0.4 mg sublingual Q5M PRN omeprazole 20 mg PO DAILY oxycodone-acetaminophen 5-325 mg 1 tab PO BID PRN pregabalin 75 mg PO BID tamsulosin 0.4 mg PO BEDTIME terbinafine HCl 250 mg PO DAILY valsartan 160 mg PO DAILY vitamin B complex (Vitamins B Complex tablet) 1 tab PO DAILY PFSH Medical History Subcutaneous mass of left foot Calcaneal spur, unspecified foot Hernia Surgical History History of cholecystectomy Hx of rotator cuff surgery History of carpal tunnel surgery of right wrist History of carpal tunnel surgery of left wrist H/O tubal ligation History of repair of rotator cuff History of liver biopsy Family History Father Gastric cancer Mother Coronary disease Social History Alcohol intake: never Current occupational status: disabled Current occupation: rt handed Physical Exam Const Other: Well-nourished well-developed very friendly female awake alert and oriented x3 in no acute distress Extrem Other: Bilateral upper extremity examination shows good capillary refill, no skin lesions noted, normal sensation light touch Right shoulder examination shows decreased range of motion when compared to her left shoulder, 4+ out of 5 strength with supraspinatus testing, positive impingement signs, tenderness over her acromioclavicular joint, no instability Results Reviewed Results Reviewed: MRI of the patient's right shoulder show severe acromioclavicular joint narrowing, a type 3 acromion, signal change within the supraspinatus tendon most likely due to rotator cuff tendinosis Assessment & Plan Assessment & Plan (1) Impingement of right shoulder: Code(s): M25.811 - Other specified joint disorders, right shoulder Plan Ms. Tejada presents with progressively worsening right shoulder pain due to impingement syndrome as well as acromioclavicular joint arthritis. I had a lengthy discussion with the patient regarding the treatment options. At this point she has failed continued non operative treatments. The risks and benefits of right shoulder surgery were discussed at length with the patient. The patient wished to proceed with surgery. Surgery will most likely involve right shoulder diagnostic arthroscopy with distal clavicle excision and acromioplasty. The patient will continue with her range of motion exercises in the meantime. She will follow-up as instructed. Feel free to call me at any time should questions regarding her orthopedic management arise. I spent 22 minutes in reviewing the patient's records and imaging studies, seeing the patient and documenting in the medical record. Coding Level of Care Code Est Pt Level 2 (61877) Diagnoses Impingement of right shoulder M25.811
== END 2023-05-03 11:32 | disposition home or self-care (01) ==
PROVIDERS: PCP Family Medicine; Visit Provider Orthopaedic Surgery
DX: M25.811 Other specified joint disorders, right shoulder (principal); M75.41 Impingement syndrome of right shoulder
CPT/HCPCS: 99213

== ENCOUNTER → 2023-05-03 11:01 | Outpatient (BNVA) | payer OTHER, SELFPAY | PROVIDERS: PCP Family Medicine; Visit Provider Orthopaedic Surgery | DX: M25.811 Other specified joint disorders, right shoulder (principal) | CPT/HCPCS: 99212 ==

== ENCOUNTER 2023-06-10 14:22 | Outpatient (REF) | payer OTHER, SELFPAY ==
--- NOTE | 2023-06-10 14:41 | ECG_ITS ---
Test Reason : cp Blood Pressure : / mmHG Vent. Rate : 074 BPM Atrial Rate : 074 BPM P-R Int : 128 ms QRS Dur : 066 ms QT Int : 376 ms P-R-T Axes : 028 033 047 degrees QTc Int : 417 ms Normal sinus rhythm Nonspecific T wave abnormality Abnormal ECG When compared with ECG of 01-MAR-2019 15:07, No significant change was found Referred By: Patito Wilhelm Electronically Signed By:LINDEN LY MD
[2023-06-10 15:35] LABS: Anion Gap 14 (12-20); Blood Urea Nitrogen 10 mg/dL (9-16); Calcium 9.5 mg/dL (8.4-10.2); Carbon Dioxide 29 mmol/L (22-29); Chloride 105 mmol/L (96-108); Estimated Glomerular Filt Rate > 60; Glucose Random 118 mg/dL (60-115); Sodium 144 mmol/L (135-145)
== END 2023-06-10 14:23 | disposition home or self-care (01) ==
LOC: HO.LAB 14:22
PROVIDERS: PCP Family Medicine; Visit Provider Family Medicine
DX: Z01.818 Encounter for other preprocedural examination (principal)
CPT/HCPCS: 36415; 80048; 93005

== ENCOUNTER → 2023-06-10 14:41 | Outpatient (BNV) | payer OTHER, SELFPAY | PROVIDERS: PCP Family Medicine; Visit Provider Internal Medicine Cardiovascular Disease | DX: R07.9 Chest pain, unspecified (principal); R94.31 Abnormal electrocardiogram [ECG] [EKG] | CPT/HCPCS: 93010 ==

== ENCOUNTER 2023-06-14 14:13 | Outpatient (AMB) | payer OTHER, SELFPAY ==
[2023-06-14 14:20] VITALS: BMI 31.6
--- NOTE | 2023-06-14 14:20 | A.OFFVIS_ITS ---
Intake Vital Signs 06/14/23 14:20 Height 5 ft Weight 162 lb BMI 31.6 Intake Visit Reasons: preop Intake Note: Ameena is a 58 year old female who presents with complaints of progressively worsening right shoulder pain. The patient states that she 1st injured her shoulder approximately 20 years ago. She had surgery on her right shoulder in 2004. Since that time her shoulder has ?not felt normal?. She has done physical therapy exercises which aggravated her pain. The patient reports difficulty lifting her right hand above shoulder height. She has had injections in the past which gave her minimal relief. She has also tried Tylenol and anti- inflammatory medicines which gave her only mild relief. Allergies cyclobenzaprine [From FLEXERIL] Allergy (Intermediate, Verified 06/14/23 14:21) HIVES latex [LATEX] Allergy (Intermediate, Verified 06/14/23 14:21) RASH aspirin [Aspirin] Allergy (Mild, Verified 06/14/23 14:21) UNKNOWN azithromycin [From Zithromax] Allergy (Mild, Verified 06/14/23 14:21) SWELLING glipizide [From Glucotrol] Allergy (Mild, Verified 06/14/23 14:21) SWELLING levofloxacin [From Levaquin] Allergy (Mild, Verified 06/14/23 14:21) leg swelling rosiglitazone [Avandia] Allergy (Unknown, Verified 06/14/23 14:21) rash From AVANDIA Allergy (Severe, Uncoded 12/21/22 14:36) HEPATITIS C Flexeril Allergy (Unknown, Uncoded 12/21/22 14:36) Rash Medication List - Last Reconciled 06/15/23 by Pravin Guardado MD azelastine 1 spray intranasal DAILY PRN budesonide-formoterol 160-4.5 mcg/actuation (Symbicort) 2 puffs inhalation DAILY cholecalciferol (vitamin D3) 50 mcg PO DAILY diclofenac sodium 1% (Arthritis Pain (diclofenac)) 2 grams topical QID dicyclomine 10 - 20 mg PO Q6H PRN docusate sodium 100 mg PO DAILY dulaglutide (Trulicity) 3 mg subcut QWEEK insulin asp prt-insulin aspart 100 unit/mL (70-30) (Novolog Mix 70-30FlexPen U- 100) 23 units subcut BID meclizine 25 mg PO TID PRN melatonin 5 mg PO BEDTIME metoprolol succinate ER 50 mg PO BEDTIME montelukast 10 mg PO QAM naloxone 4 mg/actuation 1 spray intranasal DIRECTED naproxen sodium (Aleve) 220 mg PO BID PRN nitroglycerin 0.4 mg sublingual Q5M PRN nystatin 1 appl topical BID PRN omeprazole 20 mg PO DAILY oxycodone-acetaminophen 5-325 mg 1 tab PO BID PRN pregabalin 75 mg PO BID valsartan 320 mg PO QAM vitamin B complex (Vitamins B Complex tablet) 1 tab PO DAILY PFSH Medical History Lumbar radiculopathy Obesity Macromastia Meralgia paraesthetica Insomnia Palpitations Arthritis Back pain Diabetes History of abdominal hernia GERD (gastroesophageal reflux disease) Irritable bowel syndrome Interstitial cystitis Jaundice Hepatitis C Depression Neuropathy Numbness History of headache Vertigo Asthma Elevated cholesterol HTN (hypertension) Subcutaneous mass of left foot Calcaneal spur, unspecified foot Hernia Surgical History Hx of hysterectomy Hx of elbow surgery Hx of removal of cyst Hx of foot surgery Hx of section History of bladder surgery H/O colonoscopy History of cholecystectomy History of carpal tunnel surgery of right wrist History of carpal tunnel surgery of left wrist H/O tubal ligation History of repair of rotator cuff History of liver biopsy Family History Father Gastric cancer Mother Coronary disease Social History Are you a primary rn coronary care unit to a significant other at home: No Do you presently have visiting nurse or other home services: No Alcohol intake: never Patient Tobacco Use Status: Never used Tobacco Current occupational status: disabled Current occupation: rt handed Physical Exam Vital Signs: BMI result Body Mass Index 31.6 Const Other: Well-nourished well-developed very friendly female awake alert and oriented x3 in no acute distress Extrem Other: Bilateral upper extremity examination shows good capillary refill, no skin lesions noted, normal sensation light touch Right shoulder examination shows decreased range of motion when compared to her left shoulder, pain with range of motion, positive impingement signs, 4+ out of 5 strength with supraspinatus testing, tenderness over her acromioclavicular joint, no instability Results Reviewed Results Reviewed: MRI of the patient's right shoulder show severe acromioclavicular joint narrowing, a type 3 acromion, signal change within the supraspinatus tendon most likely due to rotator cuff tendinosis versus a small rotator cuff tear Assessment & Plan Assessment & Plan (1) Impingement of right shoulder: Code(s): M25.811 - Other specified joint disorders, right shoulder Plan Ms. Tejada presents with progressively worsening right shoulder pain due to impingement syndrome, acromioclavicular joint arthritis and rotator cuff tendinosis versus a small rotator cuff tear. I had a lengthy discussion with the patient regarding the treatment options. At this point she has failed continued non operative treatments. The risks and benefits of right shoulder surgery were discussed at length with the patient. The patient wishes to proceed with surgery. Surgery will most likely involve right shoulder diagnostic arthroscopy with distal clavicle excision, acromioplasty and rotator cuff repair showed a full-thickness tear be found at the time of her surgery. The patient states that she already has oxycodone at home for her postoperative pain. The patient will follow-up as instructed. Feel free to call me at any time should questions regarding her orthopedic management arise. I spent 22 minutes in reviewing the patient's records and imaging studies, seeing the patient and documenting in the medical record. Coding Level of Care Code Est Pt Level 2 (40298) Diagnoses Impingement of right shoulder M25.811
== END 2023-06-14 14:36 | disposition home or self-care (01) ==
LOC: HO.HOS 14:14
PROVIDERS: PCP Family Medicine; Visit Provider Orthopaedic Surgery
DX: M25.811 Other specified joint disorders, right shoulder (principal); M75.41 Impingement syndrome of right shoulder
CPT/HCPCS: 99024

== ENCOUNTER → 2023-06-14 14:13 | Outpatient (BNVA) | payer OTHER, SELFPAY | PROVIDERS: PCP Family Medicine; Visit Provider Orthopaedic Surgery | DX: M25.811 Other specified joint disorders, right shoulder (principal) | CPT/HCPCS: 99212 ==

== ENCOUNTER 2023-06-24 08:25 | Day surgery (SDC) | payer OTHER, SELFPAY ==
[2023-06-13 14:27] VITALS: BMI 30.1
--- NOTE | 2023-06-22 13:57 | HO.ANESPROP2 ---
HPI - Anesthesia Eval Consult details Narrative: 58yo F for Right Shoulder Arthroscopy, distal clavicle excision, acromioplasy Anesthesia Pre-Procedure Meds Is the patient on any of the following meds?: Dulaglutide (Trulicity) If Yes to any meds - educate patient: Pt education - increased risk of aspiration and Pt education - possibility of cancelled proc at provider's discretion PMFSH Active Problems Active Problems: All Active Problems (Updated 06/14/23 @ 06:41 by Dedra Puente RN) Impingement of right shoulder (Acute) Right shoulder pain (Acute) Slowing of urinary stream (Acute) Sensation of pressure in bladder area (Acute) Patellofemoral arthritis of left knee (Acute) Subcutaneous mass of left foot (Acute) Past Medical History Medical History Lumbar radiculopathy Obesity Macromastia Meralgia paraesthetica Insomnia Palpitations Arthritis Back pain Diabetes History of abdominal hernia GERD (gastroesophageal reflux disease) Irritable bowel syndrome Interstitial cystitis Jaundice Hepatitis C Depression Neuropathy Numbness History of headache Vertigo Asthma Elevated cholesterol HTN (hypertension) Subcutaneous mass of left foot Calcaneal spur, unspecified foot Hernia Family History Family History Father Gastric cancer Mother Coronary disease Surgical History Surgical History Hx of hysterectomy Hx of elbow surgery Hx of removal of cyst Hx of foot surgery Hx of section History of bladder surgery H/O colonoscopy History of cholecystectomy History of carpal tunnel surgery of right wrist History of carpal tunnel surgery of left wrist H/O tubal ligation History of repair of rotator cuff History of liver biopsy Social History Social History Are you a primary healthcare receptionist to a significant other at home: No Do you presently have visiting nurse or other home services: No Alcohol intake: never Patient Tobacco Use Status: Never used Tobacco Current occupational status: disabled Current occupation: rt handed Meds Allergies Allergy/AdvReac Type Severity Reaction Status Date / Time rosiglitazone [Avandia] Allergy Severe rash Verified 06/24/23 08:33 cyclobenzaprine Allergy Intermediate HIVES Verified 06/24/23 08:33 [From FLEXERIL] latex [LATEX] Allergy Intermediate RASH Verified 06/24/23 08:33 aspirin [Aspirin] Allergy Mild UNKNOWN Verified 06/24/23 08:33 azithromycin [From Zithromax] Allergy Mild SWELLING Verified 06/24/23 08:33 glipizide [From Glucotrol] Allergy Mild SWELLING Verified 06/24/23 08:33 levofloxacin [From Levaquin] Allergy Mild leg Verified 06/24/23 08:33 swelling Flexeril Allergy Severe Rash Uncoded 06/24/23 08:33 From AVANDIA Allergy Severe HEPATITIS C Uncoded 06/24/23 08:33 Home Medications Medication Instructions Recorded Confirmed Last Taken Type cholecalciferol (vitamin D3) 50 50 mcg PO DAILY 02/18/22 06/24/23 Unknown History mcg (2,000 unit) capsule omeprazole 20 mg capsule,delayed 20 mg PO DAILY 02/18/22 06/24/23 06/24/23 History release vitamin B complex (Vitamins B 1 tab PO DAILY 02/18/22 06/24/23 Unknown History Complex tablet) dulaglutide 3 mg/0.5 mL 3 mg subcut QWEEK 03/31/22 06/24/23 06/14/23 History subcutaneous pen injector (Trulicity) melatonin 5 mg tablet 5 mg PO BEDTIME 03/31/22 06/24/23 Unknown History nitroglycerin 0.4 mg sublingual 0.4 mg sublingual Q5M PRN Chest 03/31/22 06/24/23 Unknown History tablet Pain oxycodone-acetaminophen 5 mg-325 1 tab PO BID PRN Pain 03/31/22 06/24/23 06/23/23 11:00 History mg tablet dicyclomine 10 mg capsule 10 - 20 mg PO Q6H PRN cramps 12/21/22 06/24/23 Unknown History metoprolol succinate 50 mg 50 mg PO BEDTIME 12/21/22 06/24/23 06/23/23 History tablet,extended release 24 hr naloxone 4 mg/actuation nasal spray 1 spray intranasal DIRECTED 12/21/22 06/24/23 Unknown History pregabalin 75 mg capsule 75 mg PO BID 12/21/22 06/24/23 06/24/23 History azelastine 137 mcg (0.1 %) nasal 1 spray intranasal DAILY PRN 06/13/23 06/24/23 Unknown History spray aerosol Allergy Symptoms budesonide-formoterol HFA 160 2 puff inhalation DAILY 06/13/23 06/24/23 06/24/23 History mcg-4.5 mcg/actuation aerosol inhaler (Symbicort) docusate sodium 100 mg tablet 100 mg PO DAILY 06/13/23 06/24/23 Unknown History insulin aspar prot-insulin aspart 23 unit subcut BID 06/13/23 06/24/23 06/23/23 19:00 History 100 unit/mL (70-30) subcutaneous 23 units pen (Novolog Mix 70-30FlexPen U-100) montelukast 10 mg tablet 10 mg PO QAM 06/13/23 06/24/23 Unknown History naproxen sodium 220 mg capsule 220 mg PO BID PRN Pain 06/13/23 06/24/23 04/25/23 History (Aleve) nystatin 100,000 unit/gram topical 1 appl topical BID PRN Skin 06/13/23 06/24/23 Unknown History cream Irritation valsartan 320 mg tablet 320 mg PO QAM 06/13/23 06/24/23 06/23/23 History Exam Height,Weight and Vital Signs: Height 5 ft Weight 69.853 kg Pertinent Lab Results Pertinent Lab Results: Laboratory Tests 07/02/21 06/10/23 14:20 14:38 WBC 7.4 Hgb 14.2 Hct 41.8 Plt Count 255 Sodium 144 Potassium 4.0 Chloride 105 Carbon Dioxide 29 BUN 10 Creatinine 0.73 Narrative Narrative: EKG 05/2023 Vent. Rate : 074 BPM Atrial Rate : 074 BPM P-R Int : 128 ms QRS Dur : 066 ms QT Int : 376 ms P-R-T Axes : 028 033 047 degrees QTc Int : 417 ms Normal sinus rhythm Nonspecific T wave abnormality Abnormal ECG When compared with ECG of 01-MAR-2019 15:07, No significant change was found Assessment and Plan Assessment Anesthesia Assessment: Chart Reviewed
[2023-06-24] VITALS (8 sets, daily range): BP systolic 151–180; BP diastolic 66–93; PULSE 68–87; RESP 12–18; TEMP 36.1–36.8; O2SAT 92–98; BMI 30.9
[2023-06-24 08:56] LABS: Glucose, Whole Blood 203 mg/dL (60-115)
[2023-06-24] MEDS: Lactated Ringers 1,000 ML 100 ML IVCONT (09:14)
--- NOTE | 2023-06-24 11:48 | P.BOP_ITS ---
Brief Operative Note Date of Service: 06/24/23 Pre-op diagnosis: Right shoulder impingement syndrome, right shoulder acromioclavicular joint arthritis, right shoulder adhesive capsulitis Post-op diagnosis: same Procedure: Right shoulder diagnostic arthroscopy with right shoulder arthroscopic distal clavicle excision, right shoulder arthroscopic acromioplasty, right shoulder arthroscopic anterior capsular release, right shoulder manipulation under anesthesia Implants: none Surgeon: Pravin Guardado MD Anesthesia: GETA and regional Was an [employer] Machine Operator used for this Procedure?: No Estimated blood loss (mL): 10 Pathology: none sent Condition: stable Disposition: PACU
--- NOTE | 2023-06-24 11:51 | W.PM.OPN ---
Operative Note Operative Note Date of Service: 06/24/23 Narrative: After the patient was identified as Ameena Tejada and her right shoulder was initialed by myself the patient was brought to the holding area where a right shoulder interscalene regional block was performed by the anesthesiologist in routine fashion. The patient was then brought to the operating room where general anesthesia was induced by the anesthesiologist in routine fashion. Because of the patient's allergy to penicillin she was given 900 mg of IV clindamycin preoperatively for infection prophylaxis. Examination under anesthesia of the patient's right shoulder showed decreased passive range of motion when compared to the left shoulder. The patient's right shoulder had passive forward flexion to 100 degrees compared to 170 degrees, external rotation to 40 degrees compared to 60 degrees, and internal rotation to 50 degrees compared to 60 degrees. The patient was gently positioned in the beach chair position with all bony prominences well padded. The patient's right shoulder region and upper extremity were prepped and draped in sterile fashion. A formal time-out was completed. A #11 scalpel blade was used to make a posterior portal 2 cm inferior and 1 cm medial to the posterolateral corner of the acromion. Blunt trocar technique was used to enter the glenohumeral joint in routine fashion. An anterior portal was made just lateral to the coracoid process after proper positioning was confirmed using a spinal needle. Diagnostic arthroscopy showed minimal degenerative changes of the glenoid and humeral head articular surfaces. There was no evidence of rotator cuff tearing. There was no evidence of injury to the biceps tendon or its insertion onto the glenoid. There was inflammation of the anterior joint capsule consistent with adhesive capsulitis. The ArthroCare Wand was then used to perform an anterior capsular release between the inferior border of the biceps tendon and the superior border of the subscapularis tendon. The arthroscope was then placed from the posterior portal into the subacromial space. A lateral portal was made 2 fingerbreadths lateral to the anterior lateral corner of the acromion. The ArthroCare Wand was used to ablate soft tissues along the undersurface of the acromion as well as to excise the coracoacromial ligament. There was a sharp spur along the undersurface of the acromion which was removed using the hooded bur. The arthroscope was then placed into the lateral portal and the acromioplasty was completed with the bur in the posterior portal using the posterior aspect of the acromion as a cutting block. The ArthroCare Wand was then brought in through the anterior portal and was used to ablate soft tissues along the acromioclavicular joint and distal clavicle. The posterior and superior ligamentous structures were left intact. A distal clavicle excision of 8 mm was performed using the fluted bur. Any remaining bursal tissue was removed using the arthroscopic shaver. The subacromial space was irrigated and then drained. All arthroscopic instruments were removed. A gentle manipulation under anesthesia was then performed. Full passive range of motion was easily obtained. The 3 portals were closed with 3-0 nylon interrupted suture. The subacromial space was injected with Marcaine. Dry sterile dressing was placed over all incisions. The patient's right upper extremity was placed into a sling. The patient was awoken and extubated in the operating room. The patient was transferred to the recovery room in stable condition.
== END 2023-06-24 13:15 | disposition home or self-care (01) ==
PROVIDERS: PCP Family Medicine; Visit Provider Orthopaedic Surgery
PROC: (CPT 29805; principal; 2023-06-24 10:20)
DX: M75.41 Impingement syndrome of right shoulder (principal); M75.01 Adhesive capsulitis of right shoulder; M19.011 Primary osteoarthritis, right shoulder; I10 Essential (primary) hypertension; E78.00 Pure hypercholesterolemia, unspecified; J45.909 Unspecified asthma, uncomplicated; B19.20 Unspecified viral hepatitis C without hepatic coma; G57.10 Meralgia paresthetica, unspecified lower limb; R42 Dizziness and giddiness; E11.9 Type 2 diabetes mellitus without complications; Z79.4 Long term (current) use of insulin; Z79.85 Long-term (current) use of injectable non-insulin antidiabetic drugs; Z79.1 Long term (current) use of non-steroidal anti-inflammatories (NSAID); Z79.899 Other long term (current) drug therapy; Z88.0 Allergy status to penicillin; Z88.1 Allergy status to other antibiotic agents; Z88.8 Allergy status to other drugs, medicaments and biological substances; Z91.040 Latex allergy status; Z98.890 Other specified postprocedural states
CPT/HCPCS: 29824; 29825; 29826; 82947; J0131; J0171; J0665; J0690; J1100; J2250; J2371; J2405; J2704; J2795; J3010

== ENCOUNTER → 2023-06-24 08:25 | Outpatient (BNV) | payer OTHER, SELFPAY | PROVIDERS: PCP Family Medicine; Visit Provider Orthopaedic Surgery | DX: M75.41 Impingement syndrome of right shoulder (principal); M19.011 Primary osteoarthritis, right shoulder; M75.01 Adhesive capsulitis of right shoulder | CPT/HCPCS: 29824; 29826 ==

== ENCOUNTER 2023-07-07 13:41 | Outpatient (AMB) | payer OTHER, SELFPAY ==
--- NOTE | 2023-07-07 13:48 | A.OFFVIS_ITS ---
Intake Vital Signs 07/07/23 13:58 Height 5 ft Weight 157 lb BMI 30.7 Intake Visit Reasons: PO- RT shoulder on 06/24/23 Intake Note: Ameena is a 58 year old Right hand dominate female who presents for her first post operative appointment s/p her Right shoulder on 06/24/2023 . The patient reports mild to moderate discomfort in her right shoulder. She continues with her home stretching program. She denies any fevers or chills. Patient reports she is still having some pain. She is doing home exercises. Allergies rosiglitazone [Avandia] Allergy (Severe, Verified 07/07/23 14:00) rash cyclobenzaprine [From FLEXERIL] Allergy (Intermediate, Verified 07/07/23 14:00) HIVES latex [LATEX] Allergy (Intermediate, Verified 07/07/23 14:00) RASH aspirin [Aspirin] Allergy (Mild, Verified 07/07/23 14:00) UNKNOWN azithromycin [From Zithromax] Allergy (Mild, Verified 07/07/23 14:00) SWELLING glipizide [From Glucotrol] Allergy (Mild, Verified 07/07/23 14:00) SWELLING levofloxacin [From Levaquin] Allergy (Mild, Verified 07/07/23 14:00) leg swelling Flexeril Allergy (Severe, Uncoded 06/24/23 08:33) Rash From AVANDIA Allergy (Severe, Uncoded 06/24/23 08:33) HEPATITIS C Medication List - Last Reconciled 07/08/23 by Pravin Guardado MD azelastine 1 spray intranasal DAILY PRN budesonide-formoterol 160-4.5 mcg/actuation (Symbicort) 2 puffs inhalation DAILY cholecalciferol (vitamin D3) 50 mcg PO DAILY dicyclomine 10 - 20 mg PO Q6H PRN docusate sodium 100 mg PO DAILY dulaglutide (Trulicity) 3 mg subcut QWEEK insulin asp prt-insulin aspart 100 unit/mL (70-30) (Novolog Mix 70-30FlexPen U- 100) 23 units subcut BID meclizine 25 mg PO TID PRN melatonin 5 mg PO BEDTIME metoprolol succinate ER 50 mg PO BEDTIME montelukast 10 mg PO QAM naloxone 4 mg/actuation 1 spray intranasal DIRECTED naproxen sodium (Aleve) 220 mg PO BID PRN nitroglycerin 0.4 mg sublingual Q5M PRN nystatin 1 appl topical BID PRN omeprazole 20 mg PO DAILY oxycodone-acetaminophen 5-325 mg 1 tab PO BID PRN pregabalin 75 mg PO BID valsartan 320 mg PO QAM vitamin B complex (Vitamins B Complex tablet) 1 tab PO DAILY PFSH Medical History Lumbar radiculopathy Obesity Macromastia Meralgia paraesthetica Insomnia Palpitations Arthritis Back pain Diabetes History of abdominal hernia GERD (gastroesophageal reflux disease) Irritable bowel syndrome Interstitial cystitis Jaundice Hepatitis C Depression Neuropathy Numbness History of headache Vertigo Asthma Elevated cholesterol HTN (hypertension) Subcutaneous mass of left foot Calcaneal spur, unspecified foot Hernia Surgical History Hx of hysterectomy Hx of elbow surgery Hx of removal of cyst Hx of foot surgery Hx of section History of bladder surgery H/O colonoscopy History of cholecystectomy History of carpal tunnel surgery of right wrist History of carpal tunnel surgery of left wrist H/O tubal ligation History of repair of rotator cuff History of liver biopsy Family History Father Gastric cancer Mother Coronary disease Social History Are you a primary customer care assistant to a significant other at home: No Do you presently have visiting nurse or other home services: No Alcohol intake: never Patient Tobacco Use Status: Never used Tobacco Current occupational status: disabled Current occupation: rt handed Physical Exam Vital Signs: BMI result Body Mass Index 30.7 Extrem Other: Right shoulder examination shows that the surgical incisions are healing well, no erythema, almost full range of motion of her right shoulder when compared to her left with mild discomfort Assessment & Plan Assessment & Plan (1) Right shoulder pain: Code(s): M25.511 - Pain in right shoulder Plan Ms. Tejada is doing very well after undergoing right shoulder arthroscopic surgery on 06/24/2023. Her sutures were removed and Steri-Strips placed over her incisions. She will continue with her home stretching program. She does not wish to go to formal physical therapy. The do's and don'ts of lifting were discussed at length with the patient. She will contact me prior to her follow- up appointment in 6 weeks should any questions or concerns arise. Feel free to call me at any time should questions regarding her orthopedic management arise. Coding Level of Care Code Global (39453) Diagnoses Right shoulder pain M25.511
[2023-07-07 13:58] VITALS: BMI 30.7
== END 2023-07-07 14:18 | disposition home or self-care (01) ==
PROVIDERS: PCP Family Medicine; Visit Provider Orthopaedic Surgery
DX: M25.511 Pain in right shoulder (principal)
CPT/HCPCS: 99024

== ENCOUNTER → 2023-07-07 13:41 | Outpatient (BNVA) | payer OTHER, SELFPAY | PROVIDERS: PCP Family Medicine; Visit Provider Orthopaedic Surgery | DX: Z47.89 Encounter for other orthopedic aftercare (principal); M25.511 Pain in right shoulder | CPT/HCPCS: 99212 ==

== ENCOUNTER 2023-08-08 07:52 | Outpatient (REF) | payer OTHER, SELFPAY ==
--- NOTE | ~2023-08-08 | US_ITS ---
EXAMINATION: US COMPLETE ABDOMEN WITH LIVER ELASTOGRAPHY CLINICAL INFORMATION: Liver fibrosis. History of hepatitis C. COMPARISON: Prior ultrasound examination from 08/06/2022. Abdomen CT from 09/14/2022. TECHNIQUE: Real-time imaging of the abdominal viscera. Noninvasive ultrasound liver fibrosis assessment is performed using Beverley ElastPQ point quantification shear wave elastography (2D-SWE) with a C5-2 MHz transducer. Multiple elastography samples are obtained. FINDINGS: PANCREAS: Normal. ABDOMINAL AORTA: The proximal, middle, and distal aortic segments are normal in caliber. INFERIOR VENA CAVA: Visualized portions are normal. LIVER: Liver has normal size and contour. The parenchyma appears to be mildly, diffusely hyperechoic. No evidence of focal lesion or intrahepatic ductal dilatation. The right lobe measures approximately 16 cm in length. The left lobe measures 9.7 cm in length. Portal flow is normal Shear wave liver elastography median stiffness is 1.67 m/s (reference: normal median stiffness is 1.3 m/s or less). In the absence of other known clinical signs, this rules out compensated advanced chronic liver disease. The value was 1.62 m/s on prior exam from 08/06/2022. IQR/median stiffness to assess sampling precision is 0.18 (reference: good quality data set is IQR/median stiffness of 0.15 or less). GALLBLADDER: Status post cholecystectomy. COMMON BILE DUCT: The common duct is chronically mildly dilated; it measures up to 0.8 - 0.9 cm diameter. RIGHT KIDNEY: Normal. No hydronephrosis. No renal calculi or focal parenchymal lesions. The kidney measures 9.5 cm in maximum dimension. LEFT KIDNEY: Normal. No hydronephrosis. No renal calculi or focal parenchymal lesions. The kidney measures 10.6 cm in maximum dimension. SPLEEN: Normal. The spleen measures 9.2 cm in maximum dimension. FREE FLUID: None. US/US abdomen comp w elastography IMPRESSION: * There appears to be mild diffuse steatosis of the liver. No focal hepatic lesion. * Shear wave liver elastography reveals a median stiffness of 1.67 m/s (similar compared to 08/06/2022). In the absence of other known clinical signs, this rules out compensated advanced chronic liver disease. * Common bile duct is chronically mildly dilated, status post cholecystectomy REFERENCE: Society of Radiologists in Ultrasound Liver Stiffness Thresholds (2020): LIVER STIFFNESS THRESHOLDS: *Liver Stiffness equal or less than 1.3 m/s: High probability of being normal. *Liver Stiffness less than 1.7 m/s: In the absence of other known clinical signs, rules out compensated advanced chronic liver disease. *Liver Stiffness 1.7-2.1 m/s: Suggestive of compensated advanced chronic liver disease but need further test for confirmation. *Liver Stiffness over 2.1 m/s: Rules in compensated advanced chronic liver disease. *Liver Stiffness over 2.4 m/s: Suggestive of clinically significant portal hypertension. QUALITY OF DATA SET: *IQR/Median value equal or less than 0.15 implies a quality data set. *IQR/Median value over 0.15 implies a poor quality data set. SIGNIFICANT CHANGE FROM PRIOR EXAM: Significant change if liver stiffness measurement is 10% or greater from prior exam. OTHER CONSIDERATIONS: The stage of liver fibrosis may be overestimated in the setting of acute hepatitis, liver inflammation, elevated liver function tests, hepatic vascular congestion, obstructive cholestasis, non-fasting state, and infiltrative diseases such as amyloidosis and lymphoma. In some patients with NAFLD, the liver stiffness thresholds for compensated advanced chronic liver disease may be lower. In causes other than viral hepatitis and NAFLD, liver stiffness thresholds are not well established.
== END 2023-08-08 07:53 | disposition home or self-care (01) ==
LOC: HO.US 07:52
PROVIDERS: PCP Family Medicine; Visit Provider Internal Medicine
DX: K74.00 Hepatic fibrosis, unspecified (principal); Z86.19 Personal history of other infectious and parasitic diseases
CPT/HCPCS: 76700; 76981

== ENCOUNTER → 2023-08-10 08:28 | Outpatient (REF) | payer OTHER, SELFPAY ==
--- NOTE | ~2023-08-10 | NM_ITS ---
EXAMINATION: RADIONUCLIDE SOLID FOOD GASTRIC EMPTYING 4-HOUR STUDY CLINICAL INFORMATION: Nausea, vomiting, diabetes. COMPARISON: No previous gastric emptying study is available for comparison. TECHNIQUE: A standard meal consisting of 4 oz of Egg Beaters brand equivalent tagged with 1 mCi Tc-99m Sulfur Colloid, 8 oz water and 2 slices of toast with jelly was administered orally to the patient. Images were obtained using a dual head gamma camera in the anterior and posterior projections over of the stomach immediately post ingestion and at hourly intervals up to 4 hours post ingestion. The anterior and posterior counts at each time interval were averaged using the geometric mean and expressed as percentage of the immediate post ingestion counts. FINDINGS: There is good visualization of activity in the stomach immediately post ingestion. As the study progresses, there is good clearance of activity from the stomach and visualization of progressively increasing small bowel activity. By the end of the study, there is almost no retention noted in the stomach. Retention in the stomach at each time interval was: 1 hour 71% (normal 37%-90%) 2 hours 31% (normal 30%-60%) 3 hours 17% 4 hours 2% (normal 0%-10%) NM/NM gastroesophageal reflux IMPRESSION: Normal 4-hour solid food gastric emptying study. Gastric emptying study grading per JNMT Consensus Recommendations in 2008: https://tech.snmjournals.org/content/36//44 Grade 1 (mild retention): 11-20% at 4 hours Grade 2 (moderate retention): 21-35% at 4 hours Grade 3 (severe retention): 36-50% at 4 hours Grade 4 (very severe retention): >50% retention at 4 hours
== END ==
LOC: HO.NUCMED 08:28
PROVIDERS: PCP Family Medicine; Visit Provider Internal Medicine
DX: R10.0 Acute abdomen (principal); R14.2 Eructation
CPT/HCPCS: 78262; A9541

== ENCOUNTER 2023-08-15 12:29 | Outpatient (REF) | payer OTHER, SELFPAY ==
[2023-08-15 12:49] LABS: MANUAL DIFF FLAG NO
[2023-08-15 12:52] LABS: Basophils Percent Auto 0.4 % (0-2); Eosinophils Absolute Auto 0.3 X10*3/uL (0.0-0.4); Hematocrit 39.5 % (37.0-47.0); Hemoglobin 13.3 g/dl (12.0-16.0); Imm Gran Abs Auto 0.03 X10*3/uL (0.00-0.03); Imm Gran Pct Auto 0.4 % (0.0-0.4); Lymphocytes Absolute Auto 2.2 X10*3/uL (1.2-4.9); Lymphocytes Percent Auto 26.5 % (20-40); Mean Corpuscular HGB Conc 33.7 g/dl (31.0-35.0); Mean Corpuscular Hemoglobin 30.6 pg (27.0-33.0); Mean Corpuscular Volume 90.8 fL (80.0-98.0); Mean Platelet Volume 11.5 fL (9.4-12.3); Monocytes Absolute Auto 0.6 X10*3/uL (0.1-1.2); Monocytes Percent Auto 6.6 % (2-11); Neutrophils Absolute Auto 5.3 x10*3/uL (2.0-8.3); Neutrophils Percent Auto 63.1 % (45-73); Platelet Count 280 X10*3/uL (160-400); Red Blood Count 4.35 X10*6/uL (4.20-5.50); Red Cell Distribution Width 12.5 % (11.0-16.0); White Blood Count 8.4 X10*3/uL (4.8-10.8)
[2023-08-15 13:02] LABS: INTERNATIONAL NORM RATIO 0.9 (0.9-1.1); Prothrombin Time 11.4 SEC (11.1-13.3)
[2023-08-15 13:36] LABS: Alanine Aminotransferase 12 U/L (0-31); Albumin Level 4.4 g/dL (3.5-5.0); Alkaline Phosphatase 93 U/L (39-117); Aspartate Amino Transferase 12 U/L (5-31); Bilirubin Direct 0.2 mg/dL (0.0-0.5); Bilirubin Total 0.5 mg/dL (0.0-1.0); Total Protein 7.4 g/dL (6.5-8.0)
[2023-08-18 19:38] LABS: HCV Log PCR <1.18 NOT DETECTED Log IU/mL (NOT DETECTED); HepC Viral Load <15 NOT DETECTED IU/mL (NOT DETECTED)
[2023-08-25 12:54] LABS: FIB-ALT 11 U/L (6-29); FIB-Alpha-2-Macroglobulin 322 mg/dL (106-279); FIB-Apolipoprotein A1 174 mg/dL (101-198); FIB-GGT 13 U/L (3-70); FIB-Haptoglobin 160 mg/dL (43-212); FIB-Total Bilirubin 0.3 mg/dL (0.2-1.2); Liver Fibrosis Score 0.17; Liver Fibrosis Stage F0; Nec Inflam Act Grade A0; Nec Inflam Act Score 0.03
== END 2023-08-15 12:30 | disposition home or self-care (01) ==
LOC: HO.LAB 12:29
PROVIDERS: PCP Family Medicine; Visit Provider Internal Medicine
DX: K74.00 Hepatic fibrosis, unspecified (principal); Z86.19 Personal history of other infectious and parasitic diseases
CPT/HCPCS: 36415; 80076; 81596; 82105; 85025; 85610; 87522

== ENCOUNTER 2023-09-08 14:22 | Outpatient (AMB) | payer OTHER, SELFPAY ==
[2023-09-08 14:29] VITALS: BMI 30.7
--- NOTE | 2023-09-08 14:29 | A.OFFVIS_ITS ---
Vital Signs 09/08/23 14:29 Height 5 ft Weight 157 lb BMI 30.7 Intake Visit Reasons: PO- RT shoulder on 06/24/23 Intake Note: Ameena is a 58 year old female who presents for her post operative appointment s/p her Right shoulder on 06/24/2023 . The patient reports mild to moderate discomfort in her right shoulder. She continues with her home stretching program. She takes Tylenol which gives her minimal relief. Allergies rosiglitazone [Avandia] Allergy (Severe, Verified 09/08/23 14:37) rash cyclobenzaprine [From FLEXERIL] Allergy (Intermediate, Verified 09/08/23 14:37) HIVES latex [LATEX] Allergy (Intermediate, Verified 09/08/23 14:37) RASH aspirin [Aspirin] Allergy (Mild, Verified 09/08/23 14:37) UNKNOWN azithromycin [From Zithromax] Allergy (Mild, Verified 09/08/23 14:37) SWELLING glipizide [From Glucotrol] Allergy (Mild, Verified 09/08/23 14:37) SWELLING levofloxacin [From Levaquin] Allergy (Mild, Verified 09/08/23 14:37) leg swelling Flexeril Allergy (Severe, Uncoded 09/08/23 14:37) Rash From AVANDIA Allergy (Severe, Uncoded 09/08/23 14:37) HEPATITIS C Medication List - Last Reconciled 09/08/23 by Pravin Guardado MD azelastine 1 spray intranasal DAILY PRN budesonide-formoterol 160-4.5 mcg/actuation (Symbicort) 2 puffs inhalation DAILY cholecalciferol (vitamin D3) 50 mcg PO DAILY dicyclomine 10 - 20 mg PO Q6H PRN docusate sodium 100 mg PO DAILY dulaglutide (Trulicity) 3 mg subcut QWEEK insulin asp prt-insulin aspart 100 unit/mL (70-30) (Novolog Mix 70-30FlexPen U- 100) 23 units subcut BID meclizine 25 mg PO TID PRN melatonin 5 mg PO BEDTIME metoprolol succinate ER 50 mg PO BEDTIME metoprolol succinate ER 25 mg PO DAILY montelukast 10 mg PO QAM naloxone 4 mg/actuation 1 spray intranasal DIRECTED naproxen sodium (Aleve) 220 mg PO BID PRN nitroglycerin 0.4 mg sublingual Q5M PRN nystatin 1 appl topical BID PRN omeprazole 20 mg PO DAILY oxycodone-acetaminophen 5-325 mg 1 tab PO BID PRN pregabalin 75 mg PO BID valsartan 320 mg PO QAM vitamin B complex (Vitamins B Complex tablet) 1 tab PO DAILY PFSH Medical History Lumbar radiculopathy Obesity Macromastia Meralgia paraesthetica Insomnia Palpitations Arthritis Back pain Diabetes History of abdominal hernia GERD (gastroesophageal reflux disease) Irritable bowel syndrome Interstitial cystitis Jaundice Hepatitis C Depression Neuropathy Numbness History of headache Vertigo Asthma Elevated cholesterol HTN (hypertension) Subcutaneous mass of left foot Calcaneal spur, unspecified foot Hernia Surgical History Hx of hysterectomy Hx of elbow surgery Hx of removal of cyst Hx of foot surgery Hx of section History of bladder surgery H/O colonoscopy History of cholecystectomy History of carpal tunnel surgery of right wrist History of carpal tunnel surgery of left wrist H/O tubal ligation History of repair of rotator cuff History of liver biopsy Family History Father Gastric cancer Mother Coronary disease Social History Are you a primary manager home healthcare to a significant other at home: No Do you presently have visiting nurse or other home services: No Alcohol intake: never Patient Tobacco Use Status: Never used Tobacco Current occupational status: disabled Current occupation: rt handed Physical Exam Vital Signs: BMI result Body Mass Index 30.7 Extrem Other: Right shoulder examination shows that the surgical incisions are well healed, no erythema, minimal discomfort with resisted forward flexion, no discomfort with resisted internal or external rotation, 5/5 strength with supraspinatus testing, slightly decreased range of motion when compared to her left shoulder Assessment & Plan Assessment & Plan (1) Right shoulder pain: Code(s): M25.511 - Pain in right shoulder Category: Medical Plan Ms. Tejada continues to do fairly well after undergoing right shoulder arthroscopic surgery on 06/24/2023. She will continue with her home stretching program. I discussed with the patient the fact that her range of motion and discomfort should continue to improve over the next few months. I did give her a prescription for Celebrex. She will contact me prior to her follow-up appointment in 2 months should any questions or concerns arise. Feel free to call me at any time should questions regarding her orthopedic management arise. I spent 21 minutes in reviewing the patient's records and imaging studies, seeing the patient and documenting in the medical record. Medications: New celecoxib (Celebrex) 200 mg PO Q12H PRN 60 caps 2RF pain Coding Level of Care Code Global (09799) Diagnoses Right shoulder pain M25.511
== END 2023-09-08 14:49 | disposition home or self-care (01) ==
PROVIDERS: PCP Family Medicine; Visit Provider Orthopaedic Surgery
DX: M25.511 Pain in right shoulder (principal)
CPT/HCPCS: 99024

== ENCOUNTER → 2023-09-08 14:22 | Outpatient (BNVA) | payer OTHER, SELFPAY | PROVIDERS: PCP Family Medicine; Visit Provider Orthopaedic Surgery | DX: M25.511 Pain in right shoulder (principal) | CPT/HCPCS: 99212 ==

== ENCOUNTER → 2023-09-26 20:30 | Outpatient (REF) | payer OTHER, SELFPAY | LOC: HO.SL 20:30 | PROVIDERS: PCP Family Medicine; Visit Provider Family Medicine | DX: G47.9 Sleep disorder, unspecified (principal) | CPT/HCPCS: 95810 ==

== ENCOUNTER → 2023-09-26 20:30 | Outpatient (BNV) | payer OTHER, SELFPAY | PROVIDERS: PCP Family Medicine; Visit Provider Internal Medicine | DX: G47.9 Sleep disorder, unspecified (principal) | CPT/HCPCS: 95810 ==

== ENCOUNTER 2023-10-19 07:25 | Day surgery (SDC) | payer OTHER, SELFPAY ==
[2023-10-17 14:39] VITALS: BMI 31.0
[2023-10-19 07:51] VITALS: BMI 30.9
[2023-10-19 07:57] VITALS: BP 135/67; PULSE 73; RESP 16; TEMP 36.2; O2SAT 98
--- NOTE | 2023-10-19 08:02 | P.CONAN_ITS ---
HPI - Anesthesia Eval Consult details Narrative: 58 yo F presenting for colonoscopy Anesthesia Pre-Procedure Meds Is the patient on any of the following meds?: GLP1/DPP4 If yes to any meds - educate patient: Pt education - increased risk of aspiration and/or euvolemic DKA PMFSH Active Problems Active Problems: All Active Problems Impingement of right shoulder (Acute) Right shoulder pain (Acute) Slowing of urinary stream (Acute) Sensation of pressure in bladder area (Acute) Patellofemoral arthritis of left knee (Acute) Subcutaneous mass of left foot (Acute) Past Medical History Medical History Lumbar radiculopathy Obesity Macromastia Meralgia paraesthetica Insomnia Palpitations Arthritis Back pain Diabetes History of abdominal hernia GERD (gastroesophageal reflux disease) Irritable bowel syndrome Interstitial cystitis Jaundice Hepatitis C Depression Neuropathy Numbness History of headache Vertigo Asthma Elevated cholesterol HTN (hypertension) Subcutaneous mass of left foot Calcaneal spur, unspecified foot Hernia Family History Family History Father Gastric cancer Mother Coronary disease Family history of problems with anesthesia: No Surgical History Surgical History Hx of arthroscopy of shoulder Hx of hysterectomy Hx of elbow surgery Hx of removal of cyst Hx of foot surgery Hx of section History of bladder surgery H/O colonoscopy History of cholecystectomy History of carpal tunnel surgery of right wrist History of carpal tunnel surgery of left wrist H/O tubal ligation History of repair of rotator cuff History of liver biopsy History of Problems with Anesthesia: No Social History Social History Are you a primary healthcare manager to a significant other at home: No Do you presently have visiting nurse or other home services: No Alcohol intake: never Patient Tobacco Use Status: Never used Tobacco Use of substances other than those prescribed or required for medical reasons: No Are you DNR?: No Advance Directives: No Advance Directives Information Provided: Yes Patient : No (tubal ligation) Current occupational status: disabled Current occupation: rt handed Meds Allergies Allergy/AdvReac Type Severity Reaction Status Date / Time rosiglitazone [Avandia] Allergy Severe rash/hepatitis Verified 10/17/23 14:37 C cyclobenzaprine Allergy Intermediate HIVES Verified 09/08/23 14:37 [From FLEXERIL] latex [LATEX] Allergy Intermediate RASH Verified 09/08/23 14:37 aspirin [Aspirin] Allergy Mild UNKNOWN Verified 09/08/23 14:37 azithromycin [From Zithromax] Allergy Mild SWELLING Verified 09/08/23 14:37 glipizide [From Glucotrol] Allergy Mild SWELLING Verified 09/08/23 14:37 levofloxacin [From Levaquin] Allergy Mild leg Verified 09/08/23 14:37 swelling Flexeril Allergy Severe Rash Uncoded 09/08/23 14:37 Active Medications: Current Medications Sodium Biphosphate/Sodium Phosphate (Sodium Phosphate,[place]-Dibasic 133 Ml Enema) 133 ml NM ONCE PRN PRN Reason: Poor Colonoscopy Prep Results Home Medications ?Medication ?Instructions ?Recorded ?Confirmed ?Last Taken ?Type cholecalciferol (vitamin D3) 50 50 mcg PO DAILY 02/18/22 10/17/23 Unknown History mcg (2,000 unit) capsule omeprazole 20 mg capsule,delayed 20 mg PO DAILY 02/18/22 10/17/23 06/24/23 History release vitamin B complex (Vitamins B 1 tab PO DAILY 02/18/22 10/17/23 Unknown History Complex tablet) dulaglutide 3 mg/0.5 mL 3 mg subcut QWEEK 03/31/22 10/17/23 06/14/23 History subcutaneous pen injector (Trulicity) melatonin 5 mg tablet 5 mg PO BEDTIME 03/31/22 10/17/23 Unknown History nitroglycerin 0.4 mg sublingual 0.4 mg sublingual Q5M PRN Chest 03/31/22 10/17/23 Unknown History tablet Pain oxycodone-acetaminophen 5 mg-325 1 tab PO BID PRN Pain 03/31/22 10/17/23 06/23/23 11:00 History mg tablet dicyclomine 10 mg capsule 10 - 20 mg PO Q6H PRN cramps 12/21/22 10/17/23 Unknown History naloxone 4 mg/actuation nasal spray 1 spray intranasal DIRECTED 12/21/22 10/17/23 Unknown History pregabalin 75 mg capsule 75 mg PO BID 12/21/22 10/17/23 06/24/23 History azelastine 137 mcg (0.1 %) nasal 1 spray intranasal DAILY PRN 06/13/23 10/17/23 Unknown History spray Allergy Symptoms budesonide-formoterol HFA 160 2 puff inhalation DAILY 06/13/23 10/19/23 10/19/23 07:00 History mcg-4.5 mcg/actuation aerosol inhaler (Symbicort) docusate sodium 100 mg tablet 100 mg PO DAILY 06/13/23 10/17/23 Unknown History insulin aspar prot-insulin aspart 23 unit subcut BID 06/13/23 10/17/23 06/23/23 19:00 History 100 unit/mL (70-30) subcutaneous 23 units pen (Novolog Mix 70-30FlexPen U-100) montelukast 10 mg tablet 10 mg PO QAM 06/13/23 10/17/23 Unknown History naproxen sodium 220 mg capsule 220 mg PO BID PRN Pain 06/13/23 10/17/23 04/25/23 History (Aleve) nystatin 100,000 unit/gram topical 1 appl topical BID PRN Skin 06/13/23 10/17/23 Unknown History cream Irritation valsartan 320 mg tablet 320 mg PO QAM 06/13/23 10/17/23 06/23/23 History metoprolol succinate 25 mg 75 mg PO DAILY 09/08/23 10/17/23 Unknown History tablet,extended release 24 hr Exam Exam Date and Time: October 19, 2023 0800 Height,Weight and Vital Signs: Height 5 ft Weight 71.724 kg Last Vital Signs Temp 97.2 F 10/19/23 07:57 Pulse 73 10/19/23 07:57 Resp 16 10/19/23 07:57 BP 135/67 10/19/23 07:57 Pulse Ox 98 10/19/23 07:57 O2 Del Method Room Air 10/19/23 07:57 Airway Mallampati Class: I TM Dist: >3cm Neck ROM: Full Loose/Missing/Broken Teeth: Yes (a few broken teeth) Heart: S1S2 Lungs: CTAB Assessment and Plan Assessment Anesthesia Assessment: Anesthesia Plan Discussed and Chart Reviewed Final Anesthetic Review Family History of Problems with Anesthesia: No History of Problems with Anesthesia: No NPO: Yes ASA Class: II Final Preanesthetic Review: No Changes in Pt Med Stat, Meds/Allgs Chart Reviewed, Consent Obtained/Reviewed and Anes Risks/Benef Reviewed Patient Risk: Low Procedure Risk: Low Anesthetic Plan Anesthetic Plan: MAC: and Agree w/ Assess. and Plan Disposition: Standard PACU
[2023-10-19] MEDS: Lactated Ringers 1,000 ML 100 ML IVCONT (08:22)
[2023-10-19 08:26] LABS: Glucose, Whole Blood 189 mg/dL (60-115)
[2023-10-19 09:30] VITALS: BP 142/83; PULSE 88; RESP 18; TEMP 37.2; O2SAT 99
--- NOTE | 2023-10-19 09:34 | P.BOP_ITS ---
Brief Operative Note Date of Service: 10/19/23 Pre-op diagnosis: Screening Post-op diagnosis: other (Diverticulosis) Procedure: Colonoscopy to the cecum and TI Surgeon: Leonardo Stratton MD Anesthesia: MAC Was an Quantitative Analyst Developer used for this Procedure?: No Estimated blood loss (mL): 0 Pathology: none sent Condition: stable Disposition: PACU
[2023-10-19 09:35] VITALS: BP 124/75; PULSE 79; RESP 18; O2SAT 99
[2023-10-19 09:40] VITALS: BP 129/72; PULSE 80; RESP 18; O2SAT 97
[2023-10-19 09:45] VITALS: BP 103/77; PULSE 81; RESP 18; TEMP 36.8; O2SAT 99
[2023-10-19 09:55] VITALS: BP 127/69; PULSE 76; RESP 18; TEMP 36.8; O2SAT 99
--- NOTE | 2023-10-19 10:13 | OP_ITS ---
DATE OF SERVICE: 10/19/2023 SURGEON: Leonardo Stratton MD INDICATIONS: The patient presents for evaluation of colorectal cancer screening. Full consent has been obtained from her for this, including risks of bleeding and perforation. PREOPERATIVE DIAGNOSIS: Colorectal cancer screening. POSTOPERATIVE DIAGNOSIS: PROCEDURE PERFORMED: Colonoscopy to cecum and terminal ileum. ESTIMATED BLOOD LOSS: COMPLICATIONS: ANESTHESIA: Monitored anesthesia care. ASSISTANTS: SPECIMENS: POSTOPERATIVE DIAGNOSES: Colorectal cancer screening, sigmoid diverticulosis, and internal hemorrhoids. DESCRIPTION OF PROCEDURE: The patient was placed in the left lateral decubitus position. The digital rectal exam revealed no abnormalities. The Olympus video pediatric colonoscope was then entered into the rectum and advanced easily to the cecum. Once in the cecum, I did identify normal-appearing cecal pouch with appendiceal orifice and a normal-appearing ileocecal valve. The terminal ileum was cannulated and appeared normal. Scope was withdrawn back in the colon. The entire cecum and ileocecal valve appeared normal. The scope was slowly withdrawn assessing all mucosal surfaces carefully. Preparation was excellent. I did not visualize any sign of polyps, colitis, nor angiodysplasias. There was a mild amount of sigmoid diverticulosis. In the rectum, scope was retroflexed, visualizing small internal hemorrhoids, but no other pathology. The rectal mucosa appeared normal. Scope was straightened and withdrawn from the patient. She tolerated the procedure well and was returned to the recovery area in stable condition. IMPRESSION: 1. Mild sigmoid diverticulosis. 2. Internal hemorrhoids. PLAN: Given today's negative colonoscopy, I would recommend a followup colonoscopy in 10 years. She will see me in 1 year for a followup visit in regard to the previous history of hepatitis C. Leonardo Stratton MD RMW/CIARAL / [id number]
== END 2023-10-19 10:20 | disposition home or self-care (01) ==
PROVIDERS: PCP Family Medicine; Visit Provider Internal Medicine
PROC: 0DJD8ZZ Inspection of Lower Intestinal Tract, Via Natural or Artificial Opening Endoscopic (ICD-10-PCS; CPT 45378; principal; 2023-10-19 08:30)
DX: Z12.11 Encounter for screening for malignant neoplasm of colon (principal); K57.30 Diverticulosis of large intestine without perforation or abscess without bleeding; K64.8 Other hemorrhoids; K58.0 Irritable bowel syndrome with diarrhea; K74.00 Hepatic fibrosis, unspecified; K21.9 Gastro-esophageal reflux disease without esophagitis; R14.0 Abdominal distension (gaseous); R11.0 Nausea; I10 Essential (primary) hypertension; E11.9 Type 2 diabetes mellitus without complications; G62.9 Polyneuropathy, unspecified; J45.909 Unspecified asthma, uncomplicated; Z86.19 Personal history of other infectious and parasitic diseases; Z79.4 Long term (current) use of insulin; Z79.85 Long-term (current) use of injectable non-insulin antidiabetic drugs; Z79.899 Other long term (current) drug therapy; Z98.890 Other specified postprocedural states
CPT/HCPCS: G0121; 82947; J2704

== ENCOUNTER 2024-03-21 13:29 | Outpatient (AMB) | payer OTHER, SELFPAY ==
--- NOTE | 2024-03-21 13:44 | A.OFFVIS_ITS ---
Vital Signs 03/21/24 13:46 Height 5 ft Weight 156 lb BMI 30.5 Intake Visit Reasons: New Prob- L shoulder pain Intake Note: Ameena is a 59 year old female who presents today complaining of left shoulder pain and weakness. The patient did undergo right shoulder surgery on 06/24/2023. She denies any pain in her right shoulder. The patient states that she injured her left shoulder approximately 1 year ago while lifting a heavy object. Since that time she has had difficulty lifting her left hand above shoulder height. She has done physical therapy which aggravated her pain. She has failed the last 6 weeks of conservative treatment which has consisted of physical therapy exercises, Tylenol and anti-inflammatory medicines. The patient reports weakness when lifting her left hand above shoulder height. Allergies rosiglitazone [Avandia] Allergy (Severe, Verified 03/21/24 13:46) rash/hepatitis C cyclobenzaprine [From FLEXERIL] Allergy (Intermediate, Verified 03/21/24 13:46) HIVES latex [LATEX] Allergy (Intermediate, Verified 03/21/24 13:46) RASH aspirin [Aspirin] Allergy (Mild, Verified 03/21/24 13:46) UNKNOWN azithromycin [From Zithromax] Allergy (Mild, Verified 03/21/24 13:46) SWELLING glipizide [From Glucotrol] Allergy (Mild, Verified 03/21/24 13:46) SWELLING levofloxacin [From Levaquin] Allergy (Mild, Verified 03/21/24 13:46) leg swelling Flexeril Allergy (Severe, Uncoded 03/21/24 13:46) Rash Medication List - Last Reconciled 03/21/24 by Pravin Guardado MD azelastine 1 spray intranasal DAILY PRN budesonide-formoterol 160-4.5 mcg/actuation (Symbicort) 2 puffs inhalation DAILY celecoxib (Celebrex) 200 mg PO Q12H PRN cholecalciferol (vitamin D3) 50 mcg PO DAILY dicyclomine 10 - 20 mg PO Q6H PRN insulin asp prt-insulin aspart 100 unit/mL (70-30) (Novolog Mix 70-30FlexPen U- 100) 23 units subcut BID meclizine 25 mg PO TID PRN metoprolol succinate ER 75 mg PO DAILY montelukast 10 mg PO QAM naloxone 4 mg/actuation 1 spray intranasal DIRECTED naproxen sodium (Aleve) 220 mg PO BID PRN nitroglycerin 0.4 mg sublingual Q5M PRN nystatin 1 appl topical BID PRN omeprazole 20 mg PO DAILY oxycodone-acetaminophen 5-325 mg 1 tab PO BID PRN pregabalin 75 mg PO BID semaglutide (Ozempic) mg subcut valsartan-hydrochlorothiazide 320-25 mg 1 tab PO DAILY vitamin B complex (Vitamins B Complex tablet) 1 tab PO DAILY [facility] Medical History (Updated 03/21/24 @ 16:29 by Pravin Guardado MD) Lumbar radiculopathy Obesity Macromastia Meralgia paraesthetica Insomnia Palpitations Arthritis Back pain Diabetes History of abdominal hernia GERD (gastroesophageal reflux disease) Irritable bowel syndrome Interstitial cystitis Jaundice Hepatitis C Depression Neuropathy Numbness History of headache Vertigo Asthma Elevated cholesterol HTN (hypertension) Subcutaneous mass of left foot Calcaneal spur, unspecified foot Hernia Surgical History Hx of arthroscopy of shoulder Hx of hysterectomy Hx of elbow surgery Hx of removal of cyst Hx of foot surgery Hx of section History of bladder surgery H/O colonoscopy History of cholecystectomy History of carpal tunnel surgery of right wrist History of carpal tunnel surgery of left wrist H/O tubal ligation History of repair of rotator cuff History of liver biopsy Family History Father Gastric cancer Mother Coronary disease Social History Are you a primary long term acute care registered nurse to a significant other at home: No Do you presently have visiting nurse or other home services: No Alcohol intake: never Patient Tobacco Use Status: Never used Tobacco Current occupational status: disabled Current occupation: rt handed Physical Exam Vital Signs: BMI result Body Mass Index 30.5 Const Other: Well-nourished well-developed very friendly female awake alert and oriented x3 in no acute distress Extrem Other: Bilateral upper extremity examination shows good capillary refill, no skin lesi ons noted, normal sensation light touch Left shoulder examination shows slightly decreased range of motion when compared to her right shoulder, 4+ out of 5 strength with supraspinatus testing, positive impingement signs, tenderness over her acromioclavicular joint, no instability Office Procedures AMB Joint Injection/Aspiration Joint Injection/Aspiration Primary Site: left shoulder Prep: site was prepped using aseptic technique Injected: 40 mg of, DepoMedrol and 1% plain lidocaine Procedure: The patient tolerated the procedure well Coding - Large joint Procedure code (CPT) selection complete Results Reviewed Results Reviewed: X-rays of the patient's left shoulder taken previously show moderate to severe acromioclavicular joint narrowing, a type 2 acromion, no acute bony abnormalities Assessment & Plan Assessment & Plan (1) Left shoulder pain: Code(s): M25.512 - Pain in left shoulder Category: Medical Plan Ms. Tejada presents with left shoulder pain and weakness due to impingement syndrome and possible rotator cuff tearing. Risks and benefits of a left shoulder cortisone injection were discussed at length with the patient. The patient wished to proceed. She tolerated the injection well. I will also send the patient for an MRI of her left shoulder to further evaluate the status of her rotator cuff tendons. I will see her back once the MRI is completed to discuss the findings and treatment options. Feel free to call me at any time should questions regarding her orthopedic management arise. I spent 21 minutes in reviewing the patient's records and imaging studies, seeing the patient and documenting in the medical record. Orders: Orders MR shoulder LT wo con Today M25.512 - Pain in left shoulder AMB Joint Injection/Aspiration Today M25.512 - Pain in left shoulder Coding Level of Care Code Est Pt Level 3 (73805) Complex EM visit Add On G2211 Diagnoses Left shoulder pain M25.512 CPT Codes Coding - Large joint: 80661 - Large joint ([id number])
[2024-03-21 13:46] VITALS: BMI 30.5
== END 2024-03-21 14:18 | disposition home or self-care (01) ==
PROVIDERS: PCP Family Medicine; Visit Provider Orthopaedic Surgery
DX: M25.512 Pain in left shoulder (principal)
CPT/HCPCS: 20610; 99213

== ENCOUNTER → 2024-03-21 13:29 | Outpatient (BNVA) | payer OTHER, SELFPAY | PROVIDERS: PCP Family Medicine; Visit Provider Orthopaedic Surgery | DX: M25.512 Pain in left shoulder (principal) | CPT/HCPCS: 20610; 99212; J1010; J2003 ==

== ENCOUNTER 2024-03-27 13:42 | Outpatient (REF) | payer OTHER, SELFPAY | END 2024-03-27 13:43 | disposition home or self-care (01) | LOC: HO.MAMMO 13:42 | PROVIDERS: Visit Provider Family Medicine | DX: Z12.31 Encounter for screening mammogram for malignant neoplasm of breast (principal) | CPT/HCPCS: 77063; 77067 ==

== ENCOUNTER → 2024-03-27 14:00 | Outpatient (BNV) | payer OTHER, SELFPAY | PROVIDERS: Visit Provider Internal Medicine | DX: Z12.31 Encounter for screening mammogram for malignant neoplasm of breast (principal) | CPT/HCPCS: 77063; 77067 ==

== ENCOUNTER 2024-03-27 16:12 | Outpatient (REF) | payer OTHER, SELFPAY | END 2024-03-27 16:13 | disposition home or self-care (01) | LOC: HO.HHCX 16:12 | PROVIDERS: PCP Family Medicine; Visit Provider Family Medicine | DX: M79.671 Pain in right foot (principal) | CPT/HCPCS: 73630 ==

== ENCOUNTER → 2024-04-30 16:06 | Outpatient (BNV) | payer OTHER, SELFPAY | PROVIDERS: Visit Provider Radiology Diagnostic Radiology | DX: M67.814 Other specified disorders of tendon, left shoulder (principal) | CPT/HCPCS: 73221 ==

== ENCOUNTER 2024-04-30 16:07 | Outpatient (REF) | payer OTHER, SELFPAY ==
--- NOTE | ~2024-04-30 | MR_ITS ---
EXAMINATION: MRI LEFT SHOULDER WITHOUT CONTRAST HISTORY: M25.512 - Pain in left shoulder COMPARISON: Correlation is made to plain films of the left shoulder dated 02/17/2020. TECHNIQUE: Coronal T1, T2, and fat suppressed T2, axial fat suppressed proton density, and sagittal T2 weighted MR images of the left shoulder were obtained. FINDINGS: Bone marrow signal intensity is normal. There is no joint effusion. There is mild degenerative change of the AC joint with cartilage loss and inferior osteophyte formation, causing mild mass effect on the supraspinatus musculotendinous junction. The glenohumeral joint is maintained. There is mild intrasubstance signal intensity within the supraspinatus tendon, consistent with degeneration. No tear is seen. The infraspinatus, teres minor, and subscapularis tendons are intact. Normal muscle bulk. There is no fluid in the subdeltoid/subacromial bursa. There is increased signal intensity within the origin of the biceps tendon, which could indicate a partial tear. The biceps tendon is normally located and otherwise unremarkable in appearance. The glenoid labrum is grossly unremarkable in appearance. MR/MR shoulder LT wo con IMPRESSION: 1. Mild osteoarthritis of the AC joint. 2. Degenerative signal in the supraspinatus tendon without evidence of a tear. 3. Increased signal intensity at the origin of the biceps tendon which could indicate a partial tear. Electronically signed by: Leonardo Rush MD 05/02/2024 08:05 AM CLARE
== END 2024-04-30 16:08 | disposition home or self-care (01) ==
LOC: HO.MRI 16:07
PROVIDERS: Visit Provider Orthopaedic Surgery
DX: M25.512 Pain in left shoulder (principal)
CPT/HCPCS: 73221

== ENCOUNTER 2024-05-08 13:50 | Outpatient (AMB) | payer OTHER, SELFPAY ==
--- NOTE | 2024-05-08 13:56 | MHC.OFFVIS ---
Vital Signs 05/08/24 13:59 Height 5 ft Weight 156 lb BMI 30.5 Intake Visit Reasons: Left shoulder pain and stiffness Intake Note: Ameena is a 59 year old female who presents today complaining of left shoulder pain and stiffness. The patient did undergo right shoulder surgery on 06/24/2023. She denies any pain in her right shoulder. The patient states that she injured her left shoulder approximately 1 year ago while lifting a heavy object. Since that time she has had difficulty lifting her left hand above shoulder height. She has done physical therapy which aggravated her pain. She has failed the last 6 weeks of conservative treatment which has consisted of physical therapy exercises, Tylenol and anti-inflammatory medicines. Allergies rosiglitazone [Avandia] Allergy (Severe, Verified 05/08/24 13:59) rash/hepatitis C cyclobenzaprine [From FLEXERIL] Allergy (Intermediate, Verified 05/08/24 13:59) HIVES latex [LATEX] Allergy (Intermediate, Verified 05/08/24 13:59) RASH aspirin [Aspirin] Allergy (Mild, Verified 05/08/24 13:59) UNKNOWN azithromycin [From Zithromax] Allergy (Mild, Verified 05/08/24 13:59) SWELLING glipizide [From Glucotrol] Allergy (Mild, Verified 05/08/24 13:59) SWELLING levofloxacin [From Levaquin] Allergy (Mild, Verified 05/08/24 13:59) leg swelling Flexeril Allergy (Severe, Uncoded 05/08/24 13:59) Rash Medication List - Last Reconciled 05/09/24 by Pravin Guardado MD azelastine 1 spray intranasal DAILY PRN budesonide-formoterol 160-4.5 mcg/actuation (Symbicort) 2 puffs inhalation DAILY celecoxib (Celebrex) 200 mg PO Q12H PRN cholecalciferol (vitamin D3) 50 mcg PO DAILY dicyclomine 10 - 20 mg PO Q6H PRN insulin asp prt-insulin aspart 100 unit/mL (70-30) (Novolog Mix 70-30FlexPen U-100) 23 units subcut BID meclizine 25 mg PO TID PRN metoprolol succinate ER 75 mg PO DAILY montelukast 10 mg PO QAM naloxone 4 mg/actuation 1 spray intranasal DIRECTED naproxen sodium (Aleve) 220 mg PO BID PRN nitroglycerin 0.4 mg sublingual Q5M PRN nystatin 1 appl topical BID PRN omeprazole 20 mg PO DAILY oxycodone-acetaminophen 5-325 mg 1 tab PO BID PRN pregabalin 75 mg PO BID semaglutide (Ozempic) mg subcut valsartan-hydrochlorothiazide 320-25 mg 1 tab PO DAILY vitamin B complex (Vitamins B Complex tablet) 1 tab PO DAILY PFSH Medical History Lumbar radiculopathy Obesity Macromastia Meralgia paraesthetica Insomnia Palpitations Arthritis Back pain Diabetes History of abdominal hernia GERD (gastroesophageal reflux disease) Irritable bowel syndrome Interstitial cystitis Jaundice Hepatitis C Depression Neuropathy Numbness History of headache Vertigo Asthma Elevated cholesterol HTN (hypertension) Subcutaneous mass of left foot Calcaneal spur, unspecified foot Hernia Surgical History Hx of arthroscopy of shoulder Hx of hysterectomy Hx of elbow surgery Hx of removal of cyst Hx of foot surgery Hx of section History of bladder surgery H/O colonoscopy History of cholecystectomy History of carpal tunnel surgery of right wrist History of carpal tunnel surgery of left wrist H/O tubal ligation History of repair of rotator cuff History of liver biopsy Family History Father Gastric cancer Mother Coronary disease Social History Are you a primary respiratory care specialist to a significant other at home: No Do you presently have visiting nurse or other home services: No Alcohol intake: never Patient Tobacco Use Status: Never used Tobacco Current occupational status: disabled Current occupation: rt handed Physical Exam Vital Signs: BMI result Body Mass Index 30.5 Const Other: Well-nourished well-developed very friendly female awake alert and oriented x3 in no acute distress Extrem Other: Bilateral upper extremity examination shows good capillary refill, no skin lesions noted, normal sensation light touch Left shoulder examination shows decreased active and passive range of motion when compared to her right shoulder, 4+ out of 5 strength with supraspinatus testing, positive impingement signs, tenderness over her acromioclavicular joint, no instability Results Reviewed Results Reviewed: MRI of the patient's left shoulder show severe acromioclavicular joint narrowing, a type 3 acromion, signal change within the supraspinatus tendon most likely due to adhesive capsulitis Assessment & Plan Assessment & Plan (1) Impingement syndrome of left shoulder: Code(s): M75.42 - Impingement syndrome of left shoulder Category: Medical Plan Ms. Tejada presents with progressively worsening left shoulder pain and stiffness due to impingement syndrome, acromioclavicular joint arthritis and adhesive capsulitis. I had a lengthy discussion with the patient regarding the treatment options. At this point she has failed continued non operative treatments. The risks and benefits of left shoulder surgery were discussed at length with the patient. The patient wishes to proceed with surgery. Surgery will most likely involve left shoulder diagnostic arthroscopy with distal clavicle excision, acromioplasty, capsular release and manipulation under anesthesia. The patient will be scheduled for next available date. She will follow-up as instructed. Feel free to call me at any time should questions regarding her orthopedic management arise. I spent 22 minutes in reviewing the patient's records and imaging studies, seeing the patient and documenting in the medical record. Coding Level of Care Code Est Pt Level 3 (17526) Complex EM visit Add On G2211 Diagnoses Impingement syndrome of left shoulder M75.42
[2024-05-08 13:59] VITALS: BMI 30.5
== END 2024-05-08 14:17 | disposition home or self-care (01) ==
PROVIDERS: Visit Provider Orthopaedic Surgery
DX: M75.42 Impingement syndrome of left shoulder (principal)
CPT/HCPCS: 99213; G2211

== ENCOUNTER → 2024-05-08 13:50 | Outpatient (BNVA) | payer OTHER, SELFPAY | PROVIDERS: Visit Provider Orthopaedic Surgery | DX: M75.42 Impingement syndrome of left shoulder (principal); M25.612 Stiffness of left shoulder, not elsewhere classified | CPT/HCPCS: 99212 ==

== ENCOUNTER 2024-05-25 14:08 | Emergency (ER) | payer OTHER, SELFPAY ==
--- NOTE | ~2024-05-25 | XR_ITS ---
EXAMINATION: XR CHEST CLINICAL INFORMATION: cough COMPARISON: March 01, 2019. TECHNIQUE: Frontal view of the chest was obtained. FINDINGS: No consolidation, pleural effusion or pneumothorax. No hyperinflation. Cardiac mediastinal silhouette size is normal. Multilevel thoracic spondylosis. Vascular clips in the right upper quadrant abdomen likely laparoscopic cholecystectomy. Degenerative changes in the shoulders. Patient's large body habitus/obesity. XR/XR chest 1V IMPRESSION: No acute airspace disease. Stable chest. Electronically signed by: Donavan Huggins MD 05/25/2024 03:02 PM CLARE
[2024-05-25 14:15] VITALS: BP 147/78; PULSE 108; O2SAT 99
[2024-05-25 14:28] VITALS: BP 113/71; PULSE 98; RESP 19; TEMP 36.6; O2SAT 97; BMI 28.5
--- NOTE | 2024-05-25 14:34 | ED.GENADULT ---
HPI - General Adult General Chief complaint: Upper Respiratory Symptoms Stated complaint: COVID, FLU LIKE SYMP PER EMS Time Seen by Provider: 05/25/24 23:29 Source: patient Mode of arrival: ambulatory Limitations: no limitations History of Present Illness ED Provider: Dr. Dina Larsen HPI narrative: Patient comes to the emergency room complaining of 5 days of body aches, cough, frequent asthma exacerbations. Patient denies chest pain or shortness of breath at this time. Patient complaining of generalized malaise. Related Data Home Medications ?Medication ?Instructions ?Recorded ?Confirmed cholecalciferol (vitamin D3) 50 50 mcg PO DAILY 02/18/22 05/09/24 mcg (2,000 unit) capsule omeprazole 20 mg capsule,delayed 20 mg PO DAILY 02/18/22 05/09/24 release vitamin B complex (Vitamins B 1 tab PO DAILY 02/18/22 05/09/24 Complex tablet) nitroglycerin 0.4 mg sublingual 0.4 mg sublingual Q5M PRN Chest 03/31/22 05/09/24 tablet Pain oxycodone-acetaminophen 5 mg-325 1 tab PO BID PRN Pain 03/31/22 05/09/24 mg tablet dicyclomine 10 mg capsule 10 - 20 mg PO Q6H PRN cramps 12/21/22 05/09/24 naloxone 4 mg/actuation nasal spray 1 spray intranasal DIRECTED 12/21/22 05/09/24 pregabalin 75 mg capsule 75 mg PO BID 12/21/22 05/09/24 azelastine 137 mcg (0.1 %) nasal 1 spray intranasal DAILY PRN 06/13/23 05/09/24 spray Allergy Symptoms budesonide-formoterol HFA 160 2 puff inhalation DAILY 06/13/23 05/09/24 mcg-4.5 mcg/actuation aerosol inhaler (Symbicort) insulin aspar prot-insulin aspart 23 unit subcut BID 06/13/23 05/09/24 100 unit/mL (70-30) subcutaneous pen (Novolog Mix 70-30FlexPen U-100) montelukast 10 mg tablet 10 mg PO QAM 06/13/23 05/09/24 naproxen sodium 220 mg capsule 220 mg PO BID PRN Pain 06/13/23 05/09/24 (Aleve) nystatin 100,000 unit/gram topical 1 appl topical BID PRN Skin 06/13/23 05/09/24 cream Irritation metoprolol succinate 25 mg 75 mg PO DAILY 09/08/23 05/09/24 tablet,extended release 24 hr semaglutide 2 mg/dose (8 mg/3 mL) mg subcut 03/21/24 05/09/24 subcutaneous pen injector (Ozempic) valsartan 320 1 tab PO DAILY 03/21/24 05/09/24 mg-hydrochlorothiazide 25 mg tablet Previous Rx's ?Medication ?Instructions ?Recorded meclizine 25 mg tablet 25 mg PO TID PRN dizziness #20 tabs 06/29/22 celecoxib 200 mg capsule (Celebrex) 200 mg PO Q12H PRN pain #60 caps 02/29/24 acetaminophen 500 mg tablet 500 mg PO Q6H PRN fever or pain 05/25/24 #30 tabs benzonatate 100 mg capsule 100 mg PO TID PRN cough #12 caps 05/25/24 prednisone 50 mg tablet 50 mg PO DAILY #4 tabs 05/25/24 Allergies Allergy/AdvReac Type Severity Reaction Status Date / Time rosiglitazone [Avandia] Allergy Severe rash/hepatitis Verified 05/25/24 14:29 C cyclobenzaprine Allergy Intermediate HIVES Verified 05/25/24 14:29 [From FLEXERIL] latex [LATEX] Allergy Intermediate RASH Verified 05/25/24 14:29 aspirin [Aspirin] Allergy Mild UNKNOWN Verified 05/25/24 14:29 azithromycin [From Zithromax] Allergy Mild SWELLING Verified 05/25/24 14:29 glipizide [From Glucotrol] Allergy Mild SWELLING Verified 05/25/24 14:29 levofloxacin [From Levaquin] Allergy Mild leg Verified 05/25/24 14:29 swelling Flexeril Allergy Severe Rash Uncoded 05/25/24 14:29 Review of Systems Review of Systems: Constitutional : No Weight loss, No Fever, No Chills, No Night Sweats, complaining of fatigue and generalized malaise and body aches ENT/Mouth : No Hearing loss, No Ear Pain, No Nasal Congestion, No Sinus Pain, No Hoarseness, No sore throat, No Rhinorrhea, No Swallowing Difficulty Eyes: No Eye Pain, No Swelling, No Redness, No Foreign Body, No Discharge, No Vision Changes Cardiovascular : No Chest Pain, No SOB, No Dyspnea on Exertion, No Orthopnea, No Edema, No Palpitations Respiratory : Complaining of productive cough, wheezing Gastrointestinal : No Nausea, No Vomiting, No Diarrhea, No Constipation, No abdominal Pain, No Hematochezia, No Melena Genitourinary : no irregular bleeding, No Dysuria, No Urinary Frequency, No Hematuria, No Urinary Incontinence, No Urgency, No Flank Pain, No Urinary Flow Changes, No Hesitancy Musculoskeletal : No joint pain, No Myalgias, No Joint Swelling Skin : No Skin Lesions, No rash Neuro : No Weakness, No Numbness, No Paresthesias, No Loss of Consciousness, No Dizziness, No Headache Psych : No Anxiety/Panic, No Depression, No SI/HI/AH/VH, No Social Issues, Heme/Lymph: No Bruising, No Bleeding,No Lymphadenopathy Endocrine : No Polyuria, No Polydipsia, No Temperature Intolerance PMFSH Past Medical History Medical History Lumbar radiculopathy Obesity Macromastia Meralgia paraesthetica Insomnia Palpitations Arthritis Back pain Diabetes History of abdominal hernia GERD (gastroesophageal reflux disease) Irritable bowel syndrome Interstitial cystitis Jaundice Hepatitis C Depression Neuropathy Numbness History of headache Vertigo Asthma Elevated cholesterol HTN (hypertension) Subcutaneous mass of left foot Calcaneal spur, unspecified foot Hernia Surgical History Hx of arthroscopy of shoulder Hx of hysterectomy Hx of elbow surgery Hx of removal of cyst Hx of foot surgery Hx of section History of bladder surgery H/O colonoscopy History of cholecystectomy History of carpal tunnel surgery of right wrist History of carpal tunnel surgery of left wrist H/O tubal ligation History of repair of rotator cuff History of liver biopsy Family History Family History Father Gastric cancer Mother Coronary disease Social History Social History Are you a primary patient care representative to a significant other at home: No Do you presently have visiting nurse or other home services: No Alcohol intake: never Patient Tobacco Use Status: Never used Tobacco Current occupational status: disabled Current occupation: rt handed Physical Exam ED Vital Signs: Vital Signs - 24 hr 05/25/24 14:28 05/25/24 23:19 05/25/24 23:19 Temperature 98 F 97.1 F Pulse Rate 98 83 Respiratory Rate 19 17 Blood Pressure 113/71 119/70 Pulse Oximetry 97 96 96 Oxygen Delivery Method Room Air Room Air BMI result Body Mass Index 28.5 Const Other: Appearance: Alert. Oriented X3. No acute distress. Eyes: Pupils equal, round and reactive to light. ENT: Pharynx normal. Neck: Normal inspection. Neck supple. No lymph nodes noted. No crepitus CVS: Normal heart rate and rhythm. Pulses normal. Normal S1 and S2 Respiratory: No respiratory distress. No crackles. No Wheezing. Bilateral rales Abdomen: Soft and nontender. No rigidity. No distention. Skin: Skin warm and dry. Normal skin color. Normal skin turgor. Extremities: No lower extremity edema. No Lacerations. No Rash Neuro: Oriented X 3. No motor deficit. No sensory deficit. Moving all extremities. No slurred speech. CN 2 through 12 grossly intact Psych: calm, cooperative, normal affect Course Course Course Narrative: This is a rapid medical exam performed by Fabiola Reyes PA-C. The patient is a 59-year-old female who presents with cough and cold symptoms x6 days. On exam, the patient has a bronchospasm type cough, but her lungs are clear. We will be obtaining a chest x-ray and a viral panel. The patient is stable and can return to the waiting room pending her full medical assessment. Medications Administered Discontinued Medications Generic Name Dose Route Start Last Admin Trade Name Freq PRN Reason Stop Dose Admin Acetaminophen 650 mg 05/25/24 23:23 05/25/24 23:31 Acetaminophen 325 Mg Tablet PO 05/25/24 23:24 650 mg ONCE ONE Administration Medical Decision Making Medical Decision Making [facility] Narrative: I discussed the labs with the patient, she tested negative for influenza RSV and COVID. Chest x-ray does not show any acute abnormality. At this time, patient is not wheezing significantly. However, patient has been using her inhaler more than usual at home. Patient was given a dose of prednisone and Tessalon Perles in the emergency room. Lab Data [facility] Lab Attestation statement: I reviewed the patient's lab results. Labs: Lab Results 02/07/25 Range/Units 15:02 Influenza Type A (PCR) NEGATIVE (Negative) Influenza Type B (PCR) NEGATIVE (Negative) RSV RNA Qual (PCR) NEGATIVE (Negative) SARS-CoV-2 RNA (RT-PCR) NEGATIVE (Negative) Independent Interpretation I performed an independent interpretation of an: Plain X-Ray Radiology Impression Discussion of test interpretation with radiology: I have reviewed the radiologist's reading. Radiologist Impression: No consolidation, pleural effusion or pneumothorax. No hyperinflation. Cardiac mediastinal silhouette size is normal. Multilevel thoracic spondylosis. Vascular clips in the right upper quadrant abdomen likely laparoscopic cholecystectomy. Degenerative changes in the shoulders. Patient's large body habitus/obesity. XR/XR chest 1V IMPRESSION: No acute airspace disease. Stable chest. Discharge Plan Discharge Clinical Impression: Acute viral bronchitis Patient Disposition: Home, Self-Care Instructions: Acute Bronchitis (ED) Additional Instructions: Please follow-up with your primary care physician tomorrow. If you have any worsening or new symptoms, please return to the emergency room or call 911 Prescriptions: New prednisone 50 mg tablet 50 mg PO DAILY Qty: 4 0RF benzonatate 100 mg capsule 100 mg PO TID PRN (Reason: cough) Qty: 12 0RF acetaminophen 500 mg tablet 500 mg PO Q6H PRN (Reason: fever or pain) Qty: 30 0RF No Action celecoxib [Celebrex] 200 mg capsule 200 mg PO Q12H PRN (Reason: pain) Qty: 60 2RF meclizine 25 mg tablet 25 mg PO TID PRN (Reason: dizziness) Qty: 20 0RF nystatin 100,000 unit/gram cream 1 appl TOPICAL BID PRN (Reason: Skin Irritation) insulin asp prt-insulin aspart [Novolog Mix 70-30FlexPen U-100] 100 unit/mL (70-30) insulin pen 23 unit subcut BID montelukast 10 mg tablet 10 mg PO QAM budesonide-formoterol [Symbicort] 160-4.5 mcg/actuation Hfa Aerosol Inhaler 2 puff INHALATION DAILY naproxen sodium [Aleve] 220 mg Capsule 220 mg PO BID PRN (Reason: Pain) azelastine 137 mcg (0.1 %) Aerosol,[place] 1 spray INTRANASAL DAILY PRN (Reason: Allergy Symptoms) Rx Instructions: administer into each nostril vitamin B complex [Vitamins B Complex] Tablet 1 tab PO DAILY omeprazole 20 mg capsule,delayed release(DR/EC) 20 mg PO DAILY cholecalciferol (vitamin D3) 50 mcg (2,000 unit) capsule 50 mcg PO DAILY oxycodone-acetaminophen 5-325 mg tablet 1 tab PO BID PRN (Reason: Pain) nitroglycerin 0.4 mg tablet, sublingual 0.4 mg sublingual Q5M PRN (Reason: Chest Pain) Rx Instructions: do not exceed 3 doses per episode metoprolol succinate 25 mg tablet extended release 24 hr 75 mg PO DAILY pregabalin 75 mg capsule 75 mg PO BID dicyclomine 10 mg capsule 10 - 20 mg PO Q6H PRN (Reason: cramps) naloxone 4 mg/actuation spray,non-aerosol 1 spray intranasal DIRECTED Ozempic 2 mg/dose (8 mg/3 mL) pen injector subcut valsartan-hydrochlorothiazide 320-25 mg tablet 1 tab PO DAILY Print Language: Spanish
[2024-05-25 15:54] LABS: Influenza A PCR NEGATIVE (Negative); Influenza B PCR NEGATIVE (Negative); Resp Syncy Virus RNA Qual PCR NEGATIVE (Negative); SARS COV2 PCR INHOUSE NEGATIVE (Negative)
[2024-05-25 23:19] VITALS: BP 119/70; PULSE 83; RESP 17; TEMP 36.2; O2SAT 96
[2024-05-25] MEDS: Acetaminophen 325 MG TABLET 650 MG PO (23:31)
[2024-05-25] MEDS: Benzonatate 100 MG CAPSULE PO (23:39)
[2024-05-25] MEDS: predniSONE 10 MG TABLET 50 MG PO (23:39)
[2024-05-25 23:55] VITALS: BP 119/70; PULSE 83; RESP 17; TEMP 36.2; O2SAT 96
== END 2024-05-25 23:57 | disposition home or self-care (01) ==
PROVIDERS: Physician Assistant Medical; Emergency Provider Emergency Medicine; PCP Family Medicine
DX: J20.8 Acute bronchitis due to other specified organisms (principal); M79.10 Myalgia, unspecified site; R05.9 Cough, unspecified; Z03.818 Encounter for observation for suspected exposure to other biological agents ruled out
CPT/HCPCS: 0241U; 71045; 99283; 99284

== ENCOUNTER → 2024-05-25 14:33 | Outpatient (BNV) | payer OTHER, SELFPAY | PROVIDERS: Visit Provider Radiology Diagnostic Radiology | DX: R05.9 Cough, unspecified (principal) | CPT/HCPCS: 71045 ==

== ENCOUNTER 2024-06-29 08:45 | Day surgery (SDC) | payer OTHER, SELFPAY ==
[2024-06-12 10:20] VITALS: BMI 28.3
--- NOTE | 2024-06-27 12:27 | HO.ANESPROP2 ---
Documented by User: Lety Shafer NP 06/28/24 13:22 HPI - Anesthesia Eval Consult details Narrative: 59yo F for Left Shoulder Arthroscopy,distal clavicle excision,acromioplasty ,capsular release,manipulation Patient was not eval'd in PAT s/p colo 10/2023 with [facility] Anesthesia Pre-Procedure Meds Is the patient on any of the following meds?: GLP1/DPP4 PMFSH Active Problems Active Problems: All Active Problems Impingement syndrome of left shoulder (Acute) Left shoulder pain (Acute) Impingement of right shoulder (Acute) Right shoulder pain (Acute) Slowing of urinary stream (Acute) Sensation of pressure in bladder area (Acute) Patellofemoral arthritis of left knee (Acute) Subcutaneous mass of left foot (Acute) Past Medical History Medical History NIKI (obstructive sleep apnea) Bronchitis Lumbar radiculopathy Obesity Macromastia Meralgia paraesthetica Insomnia Palpitations Arthritis Back pain Diabetes History of abdominal hernia GERD (gastroesophageal reflux disease) Irritable bowel syndrome Interstitial cystitis Jaundice Hepatitis C Depression Neuropathy Numbness History of headache Vertigo Asthma Elevated cholesterol HTN (hypertension) Subcutaneous mass of left foot Calcaneal spur, unspecified foot Hernia Family History Family History Father Gastric cancer Mother Coronary disease Family history of problems with anesthesia: No Surgical History Surgical History Hx of arthroscopy of shoulder Hx of hysterectomy Hx of elbow surgery Hx of removal of cyst Hx of foot surgery Hx of section History of bladder surgery H/O colonoscopy History of cholecystectomy History of carpal tunnel surgery of right wrist History of carpal tunnel surgery of left wrist H/O tubal ligation History of repair of rotator cuff History of liver biopsy History of Problems with Anesthesia: No Social History Social History Are you a primary family member caretaker to a significant other at home: No Do you presently have visiting nurse or other home services: No Alcohol intake: never Patient Tobacco Use Status: Never used Tobacco Use of substances other than those prescribed or required for medical reasons: No Have you been hit, kicked, punched, or otherwise hurt by someone within the past year? If so, by whom?: No Spiritual Healthcare Practices: none Tenriism Healthcare Practices: none Cultural Healthcare Practices: none Are you DNR?: No Advance Directives: No (daughter & son are contacts) Advance Directives Information Provided: Yes (as above noted) Advance Directives on File: No Recently lost weight without trying: No Eating poorly because of decreased appetite: No Nutrition Risks: No Nutritional Risk FDLMP: n/a Poor oral hygiene: No (partial upper) Current occupational status: disabled Current occupation: rt handed Meds Allergies Allergy/AdvReac Type Severity Reaction Status Date / Time rosiglitazone [Avandia] Allergy Severe rash/hepatitis Verified 05/25/24 14:29 C cyclobenzaprine Allergy Intermediate HIVES Verified 05/25/24 14:29 [From FLEXERIL] latex [LATEX] Allergy Intermediate RASH Verified 05/25/24 14:29 azithromycin [From Zithromax] Allergy Mild SWELLING Verified 05/25/24 14:29 glipizide [From Glucotrol] Allergy Mild SWELLING Verified 05/25/24 14:29 levofloxacin [From Levaquin] Allergy Mild leg Verified 05/25/24 14:29 swelling aspirin [Aspirin] Allergy Unknown reaction Verified 06/12/24 09:53 unknown-was years ago Flexeril Allergy Severe Rash Uncoded 05/25/24 14:29 Active Medications: Current Medications Cefazolin Sodium/Dextrose (Ancef) 2 gm in 50 mls @ 100 mls/hr IV PREOP ONE Stop: 06/29/24 05:48 Home Medications ?Medication ?Instructions ?Recorded ?Confirmed ?Last Taken ?Type cholecalciferol (vitamin D3) 50 50 mcg PO DAILY 02/18/22 06/12/24 Unknown History mcg (2,000 unit) capsule omeprazole 20 mg capsule,delayed 20 mg PO DAILY 02/18/22 06/12/24 06/24/23 History release vitamin B complex (Vitamins B 1 tab PO DAILY 02/18/22 06/12/24 Unknown History Complex tablet) nitroglycerin 0.4 mg sublingual 0.4 mg sublingual Q5M PRN Chest 03/31/22 06/12/24 Unknown History tablet Pain oxycodone-acetaminophen 5 mg-325 1 tab PO BID PRN Pain 03/31/22 06/12/24 06/23/23 11:00 History mg tablet dicyclomine 10 mg capsule 10 - 20 mg PO Q6H PRN cramps 12/21/22 06/12/24 Unknown History naloxone 4 mg/actuation nasal spray 1 spray intranasal DAILY 12/21/22 06/12/24 Unknown History pregabalin 75 mg capsule 75 mg PO BID 12/21/22 06/12/24 06/24/23 History azelastine 137 mcg (0.1 %) nasal 1 spray intranasal DAILY PRN 06/13/23 06/12/24 Unknown History spray Allergy Symptoms budesonide-formoterol HFA 160 2 puff inhalation BID 06/13/23 06/12/24 06/28/24 History mcg-4.5 mcg/actuation aerosol inhaler (Symbicort) insulin aspar prot-insulin aspart 25 unit subcut BID 06/13/23 06/12/24 06/23/23 19:00 History 100 unit/mL (70-30) subcutaneous 23 units pen (Novolog Mix 70-30FlexPen U-100) montelukast 10 mg tablet 10 mg PO QPM 06/13/23 06/12/24 Unknown History nystatin 100,000 unit/gram topical 1 appl topical BID PRN Skin 06/13/23 06/12/24 Unknown History cream Irritation metoprolol succinate 25 mg 75 mg PO BEDTIME 09/08/23 06/12/24 06/28/24 History tablet,extended release 24 hr semaglutide 2 mg/dose (8 mg/3 mL) 2 mg subcut QWEEK 03/21/24 06/12/24 06/18/24 History subcutaneous pen injector (Ozempic) valsartan 320 1 tab PO DAILY 03/21/24 06/12/24 06/28/24 History mg-hydrochlorothiazide 25 mg tablet albuterol sulfate 90 mcg/actuation 2 puff inhalation Q4-6H PRN 06/12/24 06/12/24 06/28/24 History aerosol inhaler Shortness Of Breath Or Wheezing Exam Height,Weight and Vital Signs: Height 5 ft Weight 65.771 kg Assessment and Plan Assessment Anesthesia Assessment: Chart Reviewed Final Anesthetic Review Family History of Problems with Anesthesia: No History of Problems with Anesthesia: No Documented by User: Mary Negron MD 06/29/24 10:11 PMFSH Past Medical History Medical History NIKI (obstructive sleep apnea) Bronchitis Lumbar radiculopathy Obesity Macromastia Meralgia paraesthetica Insomnia Palpitations Arthritis Back pain Diabetes History of abdominal hernia GERD (gastroesophageal reflux disease) Irritable bowel syndrome Interstitial cystitis Jaundice Hepatitis C Depression Neuropathy Numbness History of headache Vertigo Asthma Elevated cholesterol HTN (hypertension) Subcutaneous mass of left foot Calcaneal spur, unspecified foot Hernia Family History Family History Father Gastric cancer Mother Coronary disease Surgical History Surgical History Hx of arthroscopy of shoulder Hx of hysterectomy Hx of elbow surgery Hx of removal of cyst Hx of foot surgery Hx of section History of bladder surgery H/O colonoscopy History of cholecystectomy History of carpal tunnel surgery of right wrist History of carpal tunnel surgery of left wrist H/O tubal ligation History of repair of rotator cuff History of liver biopsy Social History Social History Are you a primary family member caretaker to a significant other at home: No Do you presently have visiting nurse or other home services: No Alcohol intake: never Patient Tobacco Use Status: Never used Tobacco Use of substances other than those prescribed or required for medical reasons: No Have you been hit, kicked, punched, or otherwise hurt by someone within the past year? If so, by whom?: No Spiritual Healthcare Practices: none Tenriism Healthcare Practices: none Cultural Healthcare Practices: none Are you DNR?: No Advance Directives: No (daughter & son are contacts) Advance Directives Information Provided: Yes (as above noted) Advance Directives on File: No Recently lost weight without trying: No Eating poorly because of decreased appetite: No Nutrition Risks: No Nutritional Risk FDLMP: n/a Poor oral hygiene: No (partial upper) Current occupational status: disabled Current occupation: rt handed Meds Allergies Allergy/AdvReac Type Severity Reaction Status Date / Time rosiglitazone [Avandia] Allergy Severe rash/hepatitis Verified 05/25/24 14:29 C cyclobenzaprine Allergy Intermediate HIVES Verified 05/25/24 14:29 [From FLEXERIL] latex [LATEX] Allergy Intermediate RASH Verified 05/25/24 14:29 azithromycin [From Zithromax] Allergy Mild SWELLING Verified 05/25/24 14:29 glipizide [From Glucotrol] Allergy Mild SWELLING Verified 05/25/24 14:29 levofloxacin [From Levaquin] Allergy Mild leg Verified 05/25/24 14:29 swelling aspirin [Aspirin] Allergy Unknown reaction Verified 06/12/24 09:53 unknown-was years ago Flexeril Allergy Severe Rash Uncoded 05/25/24 14:29 Home Medications ?Medication ?Instructions ?Recorded ?Confirmed ?Last Taken ?Type cholecalciferol (vitamin D3) 50 50 mcg PO DAILY 02/18/22 06/12/24 Unknown History mcg (2,000 unit) capsule omeprazole 20 mg capsule,delayed 20 mg PO DAILY 02/18/22 06/12/24 06/24/23 History release vitamin B complex (Vitamins B 1 tab PO DAILY 02/18/22 06/12/24 Unknown History Complex tablet) nitroglycerin 0.4 mg sublingual 0.4 mg sublingual Q5M PRN Chest 03/31/22 06/12/24 Unknown History tablet Pain oxycodone-acetaminophen 5 mg-325 1 tab PO BID PRN Pain 03/31/22 06/12/24 06/23/23 11:00 History mg tablet dicyclomine 10 mg capsule 10 - 20 mg PO Q6H PRN cramps 12/21/22 06/12/24 Unknown History naloxone 4 mg/actuation nasal spray 1 spray intranasal DAILY 12/21/22 06/12/24 Unknown History pregabalin 75 mg capsule 75 mg PO BID 12/21/22 06/12/24 06/24/23 History azelastine 137 mcg (0.1 %) nasal 1 spray intranasal DAILY PRN 06/13/23 06/12/24 Unknown History spray Allergy Symptoms budesonide-formoterol HFA 160 2 puff inhalation BID 06/13/23 06/12/24 06/28/24 History mcg-4.5 mcg/actuation aerosol inhaler (Symbicort) insulin aspar prot-insulin aspart 25 unit subcut BID 06/13/23 06/12/24 06/23/23 19:00 History 100 unit/mL (70-30) subcutaneous 23 units pen (Novolog Mix 70-30FlexPen U-100) montelukast 10 mg tablet 10 mg PO QPM 06/13/23 06/12/24 Unknown History nystatin 100,000 unit/gram topical 1 appl topical BID PRN Skin 06/13/23 06/12/24 Unknown History cream Irritation metoprolol succinate 25 mg 75 mg PO BEDTIME 09/08/23 06/12/24 06/28/24 History tablet,extended release 24 hr semaglutide 2 mg/dose (8 mg/3 mL) 2 mg subcut QWEEK 03/21/24 06/12/24 06/18/24 History subcutaneous pen injector (Ozempic) valsartan 320 1 tab PO DAILY 03/21/24 06/12/24 06/28/24 History mg-hydrochlorothiazide 25 mg tablet albuterol sulfate 90 mcg/actuation 2 puff inhalation Q4-6H PRN 06/12/24 06/12/24 06/28/24 History aerosol inhaler Shortness Of Breath Or Wheezing Exam Airway Mallampati Class: II TM Dist: >3cm Neck ROM: Full Heart: rrr Lungs: cta Assessment and Plan Assessment Anesthesia Assessment: Anesthesia Plan Discussed Final Anesthetic Review NPO: Yes ASA Class: III Final Preanesthetic Review: No Changes in Pt Med Stat, Meds/Allgs Chart Reviewed, Consent Obtained/Reviewed and Anes Risks/Benef Reviewed Patient Risk: Intermediate Procedure Risk: Intermediate Anesthetic Plan Anesthetic Plan: GA and Regional Block Disposition: Standard PACU
[2024-06-29] VITALS (15 sets, daily range): BP systolic 136–170; BP diastolic 74–98; PULSE 66–92; RESP 12–20; TEMP 36.1–36.9; O2SAT 90–100
--- NOTE | 2024-06-29 08:55 | ECG_ITS ---
Test Reason : preop Blood Pressure : */* mmHG Vent. Rate : 63 BPM Atrial Rate : 63 BPM P-R Int : 122 ms QRS Dur : 70 ms QT Int : 428 ms P-R-T Axes : 43 23 43 degrees QTcB Int : 437 ms Normal sinus rhythm Normal ECG When compared with ECG of 10-Jun-2023 14:46, No significant change was found Referred By: Lety Shafer Electronically Signed By: SVETLANA NEWTON
[2024-06-29 09:18] LABS: Glucose, Whole Blood 84 mg/dL (60-115)
[2024-06-29] MEDS: Lactated Ringers 1,000 ML 100 ML IVCONT (09:30)
[2024-06-29 09:56] LABS: Hematocrit 32.7 % (37.0-47.0); Hemoglobin 11.3 g/dl (12.0-16.0); Mean Corpuscular HGB Conc 34.6 g/dl (31.0-35.0); Mean Corpuscular Hemoglobin 31.7 pg (27.0-33.0); Mean Corpuscular Volume 91.6 fL (80.0-98.0); Mean Platelet Volume 11.5 fL (9.4-12.3); Platelet Count 225 X10*3/uL (160-400); Red Blood Count 3.57 X10*6/uL (4.20-5.50); Red Cell Distribution Width 13.6 % (11.0-16.0); White Blood Count 7.8 X10*3/uL (4.8-10.8)
[2024-06-29 10:10] LABS: Anion Gap 11 (12-20); Blood Urea Nitrogen 10 mg/dL (9-16); Calcium 8.8 mg/dL (8.4-10.2); Carbon Dioxide 25 mmol/L (22-29); Chloride 112 mmol/L (96-108); Creatinine Clr Calc Pharmacy 77.6; Estimated Glomerular Filt Rate > 60; Glucose Fasting 83 mg/dL (60-99); Potassium 3.9 mmol/L (3.3-5.1); Sodium 144 mmol/L (135-145)
[2024-06-29] MEDS: ceFAZolin Sodium/Dextrose,Iso 2 GM/50 ML PIGGYBACK IV (10:35)
--- NOTE | 2024-06-29 12:10 | PM.OP ---
Brief Operative Note Date of Service: 06/29/24 Pre-op diagnosis: Left shoulder impingement syndrome, left shoulder acromioclavicular joint arthritis, left shoulder adhesive capsulitis Post-op diagnosis: same Procedure: Left shoulder diagnostic arthroscopy with left shoulder arthroscopic distal clavicle excision, left shoulder arthroscopic acromioplasty, left shoulder arthroscopic anterior capsular release, left shoulder manipulation under anesthesia Implants: none Surgeon: Pravin Guardado MD Anesthesia: GETA and regional Was an Cementing Bulk Material Operator used for this Procedure?: No Estimated blood loss (mL): 15 Pathology: none sent Condition: stable Disposition: PACU
--- NOTE | 2024-06-29 12:11 | P.OP_ITS ---
Operative Note Operative Note Date of Service: 06/29/24 Narrative: After the patient was identified as Ameena Tejada and their her shoulder was initialed by myself the patient was brought to the holding area where a left shoulder interscalene regional block was performed by the anesthesiologist in routine fashion. The patient was then brought to the operating room where general anesthesia was induced by the anesthesiologist in routine fashion. The patient was given 2 g of IV Ancef preoperatively for infection prophylaxis. Examination under anesthesia of the patient's left shoulder showed decreased range of motion when compared to the right shoulder. The patient's left shoulde r had forward flexion to 130 degrees compared to 170 degrees, external rotation to 30 degrees compared to 60 degrees, and internal rotation to 40 degrees compared to 50 degrees. The patient was gently positioned in the beach chair position with all bony prominences well padded. The patient's left shoulder region and upper extremity were prepped and draped in sterile fashion. A formal time-out was completed. A #11 scalpel blade was used to make a posterior portal 2 cm inferior and 1 cm medial to the posterolateral corner of the acromion. Blunt trocar technique was used to enter the glenohumeral joint in routine fashion. An anterior portal was made just lateral to the coracoid process after proper positioning was confirmed using a spinal needle. Diagnostic arthroscopy showed minimal degenerative changes of the glenoid and humeral head articular surfaces. There was no evidence of rotator cuff tearing. There was no evidence of injury to the biceps tendon or its insertion onto the glenoid. There was inflammation of the anterior joint capsule consistent with adhesive capsulitis. The ArthroCare Wand was then used to perform an anterior capsular release between the inferior border of the biceps tendon and the superior border of the subscapularis tendon. The arthroscope was then placed from the posterior portal into the subacromial space. A lateral portal was made 2 fingerbreadths lateral to the anterior lateral corner of the acromion. The ArthroCare Wand was used to ablate soft tissues along the undersurface of the acromion as well as to excise the coracoacromial ligament. There was a sharp spur along the undersurface of the acromion which was removed using the hooded bur. The arthroscope was then placed into the lateral portal and the acromioplasty was completed with the bur in the posterior portal using the posterior aspect of the acromion as a cutting block. The ArthroCare Wand was then brought in through the anterior portal and was used to ablate soft tissues along the acromioclavicular joint and distal clavicle. The posterior and superior ligamentous structures were left intact. A distal clavicle excision of 8 mm was performed using the hooded bur. Any remaining bursal tissue was removed using the arthroscopic shaver. The subacromial space was irrigated and then drained. All arthroscopic instruments were removed. A gentle manipulation under anesthesia was then performed. Full passive range of motion was easily attained. The 3 portals were closed with 3-0 nylon interrupted suture. The subacromial space was injected with Marcaine. D ry sterile dressing was placed over all incisions. The patient's left upper extremity was placed into a sling. The patient was awoken and extubated in the operating room. The patient was transferred to the recovery room in stable condition.
[2024-06-29] MEDS: cefTRIAXone sodium 1 GM VIAL IVPUSH (12:33)
== END 2024-06-29 14:50 | disposition home or self-care (01) ==
PROVIDERS: Nurse Practitioner; PCP Family Medicine; Visit Provider Orthopaedic Surgery
PROC: (CPT 29805; principal; 2024-06-29 11:00)
DX: M75.42 Impingement syndrome of left shoulder (principal); M75.02 Adhesive capsulitis of left shoulder; M19.022 Primary osteoarthritis, left elbow; M25.612 Stiffness of left shoulder, not elsewhere classified; M25.512 Pain in left shoulder; X50.0XXA Overexertion from strenuous movement or load, initial encounter; G47.33 Obstructive sleep apnea (adult) (pediatric); I10 Essential (primary) hypertension; E78.00 Pure hypercholesterolemia, unspecified; E11.9 Type 2 diabetes mellitus without complications; Z79.1 Long term (current) use of non-steroidal anti-inflammatories (NSAID); Z79.4 Long term (current) use of insulin; Z79.85 Long-term (current) use of injectable non-insulin antidiabetic drugs; Z79.899 Other long term (current) drug therapy; Z88.1 Allergy status to other antibiotic agents; Z88.6 Allergy status to analgesic agent; Z88.8 Allergy status to other drugs, medicaments and biological substances; Z91.040 Latex allergy status; Z98.890 Other specified postprocedural states
CPT/HCPCS: 29824; 29825; 29826; 36415; 80048; 82947; 85027; 93005; J0131; J0171; J0665; J0690; J0696; J1100; J2003; J2250; J2405; J2704; J2795; J3010

== ENCOUNTER → 2024-06-29 08:45 | Outpatient (BNV) | payer OTHER, SELFPAY | PROVIDERS: PCP Family Medicine; Visit Provider Orthopaedic Surgery | DX: M75.42 Impingement syndrome of left shoulder (principal); M19.012 Primary osteoarthritis, left shoulder; M75.02 Adhesive capsulitis of left shoulder | CPT/HCPCS: 29824; 29826 ==

== ENCOUNTER → 2024-06-29 08:55 | Outpatient (BNV) | payer OTHER, SELFPAY | PROVIDERS: PCP Family Medicine; Visit Provider Internal Medicine | DX: I10 Essential (primary) hypertension (principal); Z01.810 Encounter for preprocedural cardiovascular examination; M75.42 Impingement syndrome of left shoulder | CPT/HCPCS: 93010 ==

== ENCOUNTER 2024-07-06 11:00 | Outpatient (REF) | payer OTHER, SELFPAY ==
[2024-07-06 14:11] LABS: Alanine Aminotransferase 11 U/L (0-31); Alkaline Phosphatase 75 U/L (39-117); Anion Gap 11 (12-20); Aspartate Amino Transferase 14 U/L (5-31); Bilirubin Direct 0.1 mg/dL (0.0-0.5); Bilirubin Total 0.4 mg/dL (0.0-1.0); Blood Urea Nitrogen 11 mg/dL (9-16); Calcium 8.9 mg/dL (8.4-10.2); Carbon Dioxide 26 mmol/L (22-29); Chloride 108 mmol/L (96-108); Cholesterol 171 mg/dL (<200); Estimated Glomerular Filt Rate > 60; Glucose Random 100 mg/dL (60-115); HDL Cholesterol 43 mg/dL (>40); LDL Cholesterol Calculated 100 mg/dL (<100); Potassium 3.5 mmol/L (3.3-5.1); Sodium 141 mmol/L (135-145); Total Protein 7.1 g/dL (6.5-8.0); Triglycerides 143 mg/dL (<150)
== END 2024-07-06 11:01 | disposition home or self-care (01) ==
LOC: HO.HHCL 11:00
PROVIDERS: Visit Provider Family Medicine
DX: E11.42 Type 2 diabetes mellitus with diabetic polyneuropathy (principal); E11.3293 Type 2 diabetes mellitus with mild nonproliferative diabetic retinopathy without macular edema, bilateral; Z79.4 Long term (current) use of insulin
CPT/HCPCS: 36415; 80048; 80061; 80076

== ENCOUNTER 2024-07-12 | Outpatient (REF) | payer OTHER, SELFPAY ==
--- OUTSIDE RECORDS SUMMARY | 2024-10-11 17:35 | XMS_ITS | Data Portability ---
Author Organization [facility] [place] [employer] [facility] Address [address] [place] [id number] Assessment No assessment recorded. Plan of Treatment [...] Not available Not available Not available 02/14/2024 29815 RxNorm Not Available [facility] - production 4 03:41:49 8078 latex environme nt,medica tion Not available Not available Not available 02/14/2024 90462 91 RxNorm Not Available [facility] - production 4 03:41:49 8079 levofloxa leela medicatio n Not available Not available Not available 02/14/2024 46730 RxNorm Not Available [facility] - production 4 [...] SNOMED-CT Code Diagnosis ICD10 Code Diagnosis Note [id number] Ravi Castillo MD Main - [facility] [address] [place] [address] 12/31/2022 17:19:52 01/03/2023 11:18:56 Essential hypertension [id number] I10 This 57-year-ol d female with hypertensi on treated with metoprolol XL and valsartan called instED because her BP has been elevated today. Earlier today she had a knee injection. Her EKG showed no acute findings. Her BP was trending down when the collector of internal revenue arrived. I recommende d that she monitor [...] Freitas Member ID Guarantor Name 06/21/2023 1 [facility] - DOS ON OR AFTER 2022 - DUAL ELIGIBLE - [facility] OPTIONS AND ONE CARE (MEDICARE REPLACEMENT/ADV ANTAGE - HMO) Ameena Tejada [id number] Ameena Tejada Notes Date Note Type Note Provider Name and Address Organization Details Recorded Time 12/31/2022 text/html HPI: Patient with trending elevated BP's on last visit at [facility]. Though may be due to pain. Pain Center visit today for left knee gel injection. Serial BP's elevated at that time with pain 09/25. 183/73, 172/84, 176/102. Procedure completed now at [...] required to process visit Ravi Castillo MD [address] [place] [address],[address], [place], [address], [employer]OM[employer]ARD[employer] 12/31/2022 17:26:53 OBGyn Episode No OBEpisode recorded.
== END 2024-07-12 00:01 | disposition home or self-care (01) ==
LOC: CF
PROVIDERS: PCP Family Medicine; Visit Provider Orthopaedic Surgery
DX: M25.512 Pain in left shoulder (principal); Z98.890 Other specified postprocedural states
CPT/HCPCS: 99212

== ENCOUNTER 2024-07-12 10:45 | Outpatient (AMB) | payer OTHER, SELFPAY ==
[2024-07-12 10:53] VITALS: BMI 28.3
--- NOTE | 2024-07-12 10:53 | A.OFFVIS_ITS ---
Vital Signs 07/12/24 10:53 Height 5 ft Weight 145 lb BMI 28.3 Intake Visit Reasons: PO LT Shoulder 06/29/24 Intake Note: Ameena is a 59 year old female who presents today post-operatively after undergoing left shoulder arthroscopic surgery on 06/29/24. She reports mild to moderate discomfort in her left shoulder. She has been doing stretching exercises on her own. She denies any fevers or chills. Allergies rosiglitazone [Avandia] Allergy (Severe, Verified 07/12/24 10:54) rash/hepatitis C cyclobenzaprine [From FLEXERIL] Allergy (Intermediate, Verified 07/12/24 10:54) HIVES latex [LATEX] Allergy (Intermediate, Verified 07/12/24 10:54) RASH azithromycin [From Zithromax] Allergy (Mild, Verified 07/12/24 10:54) SWELLING glipizide [From Glucotrol] Allergy (Mild, Verified 07/12/24 10:54) SWELLING levofloxacin [From Levaquin] Allergy (Mild, Verified 07/12/24 10:54) leg swelling aspirin [Aspirin] Allergy (Unknown, Verified 07/12/24 10:54) reaction unknown-was years ago Flexeril Allergy (Severe, Uncoded 07/12/24 10:54) Rash Medication List - Last Reconciled 07/12/24 by Pravin Guardado MD acetaminophen 500 mg PO Q6H PRN albuterol sulfate 90 mcg/actuation 2 puffs inhalation Q4-6H PRN azelastine 1 spray intranasal DAILY PRN benzonatate 100 mg PO TID PRN budesonide-formoterol 160-4.5 mcg/actuation (Symbicort) 2 puffs inhalation BID celecoxib (Celebrex) 200 mg PO Q12H PRN cholecalciferol (vitamin D3) 50 mcg PO DAILY dicyclomine 10 - 20 mg PO Q6H PRN insulin asp prt-insulin aspart 100 unit/mL (70-30) (Novolog Mix 70-30FlexPen U- 100) 25 units subcut BID meclizine 25 mg PO TID PRN metoprolol succinate ER 75 mg PO BEDTIME montelukast 10 mg PO QPM naloxone 4 mg/actuation 1 spray intranasal DAILY nitroglycerin 0.4 mg sublingual Q5M PRN nystatin 1 appl topical BID PRN omeprazole 20 mg PO DAILY oxycodone 10 mg (2 x 5 mg) PO Q4H PRN oxycodone-acetaminophen 5-325 mg 1 tab PO BID PRN pregabalin 75 mg PO BID semaglutide (Ozempic) 2 mg subcut QWEEK valsartan-hydrochlorothiazide 320-25 mg 1 tab PO DAILY vitamin B complex (Vitamins B Complex tablet) 1 tab PO DAILY PFSH Medical History NIKI (obstructive sleep apnea) Bronchitis Lumbar radiculopathy Obesity Macromastia Meralgia paraesthetica Insomnia Palpitations Arthritis Back pain Diabetes History of abdominal hernia GERD (gastroesophageal reflux disease) Irritable bowel syndrome Interstitial cystitis Jaundice Hepatitis C Depression Neuropathy Numbness History of headache Vertigo Asthma Elevated cholesterol HTN (hypertension) Subcutaneous mass of left foot Calcaneal spur, unspecified foot Hernia Surgical History Hx of arthroscopy of shoulder Hx of hysterectomy Hx of elbow surgery Hx of removal of cyst Hx of foot surgery Hx of section History of bladder surgery H/O colonoscopy History of cholecystectomy History of carpal tunnel surgery of right wrist History of carpal tunnel surgery of left wrist H/O tubal ligation History of repair of rotator cuff History of liver biopsy Family History Father Gastric cancer Mother Coronary disease Social History Are you a primary health care marketing manager to a significant other at home: No Do you presently have visiting nurse or other home services: No Alcohol intake: never Patient Tobacco Use Status: Never used Tobacco Current occupational status: disabled Current occupation: rt handed Physical Exam Vital Signs: BMI result Body Mass Index 28.3 Extrem Other: Left shoulder examination shows that the surgical incisions are healing well, no erythema, slightly decreased range of motion when compared to her right shoulder, mild discomfort with range of motion Assessment & Plan Assessment & Plan (1) Left shoulder pain: Code(s): M25.512 - Pain in left shoulder Category: Medical Plan Ms. Tejada is doing very well after undergoing left shoulder arthroscopic surgery on 06/29/2024. Her sutures were removed Steri-Strips placed over her incisions. She will continue with her home stretching program. She does not wish to go to formal physical therapy. She will contact me prior to her follow- up appointment in 2-3 months should any questions or concerns arise. Feel free to call me at any time should questions regarding her orthopedic management arise. Medications: Changed From oxycodone Partial Fill upon patient request. Take 1-2 tabs every 4 hours as needed for pain following her left shoulder surgery. 10 mg (2 x 5 mg) PO Q4H PRN 40 tabs 0RF pain To oxycodone Partial Fill upon patient request. Take 1 tab every 6 hours as needed for pain following her left shoulder surgery. 5 mg PO Q6H PRN 30 tabs 0RF pain Coding Level of Care Code Global (34525) Diagnoses Left shoulder pain M25.512
--- OUTSIDE RECORDS SUMMARY | 2024-07-12 14:11 | XMS_ITS | Data Portability ---
Author Organization [employer] [employer] [facility] [employer] Address [address] [place] [id number] Assessment No assessment recorded. Plan of Treatment Reminders Order Date Submit Date Provider Last Modified By Organization Details Last Modified Time Details Appointments None record ed. Lab None record ed. Referral None record ed. Procedures None record ed. Surgeries None record ed. Imaging None record ed. Medication Orders None record ed. Patient TargetsNo targets recorded. Patient InstructionsNo instructions recorded. Reason for Referral None Reported. Medical Equipment None Reported. Allergies Allergen ID Allergen Name Allergen Category Reaction Reaction Severity Criticality Documentation Date Start Date Code Code System Note Provider Name and Address Organization Details Recorded Time 8076 aspirin medicatio n Not available Not available Not available 02/14/2024 1191 RxNorm Not Available [facility] - production 4 03:41:49 8077 azithromy leela medicatio n Not available Not available Not available 02/14/2024 49037 RxNorm Not Available [facility] - production 4 03:41:49 8078 latex environme nt,medica tion Not available Not available Not available 02/14/2024 55960 91 RxNorm Not Available [facility] - production 4 03:41:49 8079 levofloxa leela medicatio n Not available Not available Not available 02/14/2024 21285 RxNorm Not Available [facility] - production 4 03:41:49 Medications Name Sig Start Date Stop Date Status Note LastModified by Organization Details LastModified Time amoxicillin 500 mg capsule TAKE 1 CAP (500 MG) BY ORAL ROUTE EVERY 8 HOURS UNTIL FINISHED active Not Available Not Available No t Available albuterol sulfate 2.5 mg/3 mL (0.083 %) solution for nebulization TAKE 3 ML WITH NEBULIZER EVERY 6 HOURS active Not Available Not Available No t Available cetirizine 10 mg tablet TAKE 1 TABLET BY MOUTH EVERY DAY IN THE MORNING active Not Available Not Available No t Available atorvastatin 10 mg tablet TAKE 1 TABLET BY MOUTH EVERY DAY active Not Available Not Available No t Available metoprolol succinate ER 50 mg tablet,exten ded release 24 hr TAKE 1 TABLET BY MOUTH EVERY DAY IN THE MORNING *DO NOT CRUSH/CHEW* active Not Available Not Available Not Available valsartan 80 mg tablet TAKE 1 TABLET BY MOUTH EVERY DAY active Not Available Not Available No t Available oxycodone-ac etaminophen 5 mg-325 mg tablet TAKE 1 TABLET BY MOUTH EVERY 12 (TWELVE) HOURS IF NEEDED FOR SEVERE PAIN FOR UP TO 28 DAYS. active Not Available Not Available No t Available terbinafine HCl 250 mg tablet TAKE 1 TABLET BY MOUTH EVERY DAY FOR 12 WEEKS active Not Available Not Available No t Available Vitamins B Complex tablet TAKE 1 TABLET BY MOUTH EVERY DAY active Not Available Not Available No t Available tamsulosin 0.4 mg capsule TAKE 1 CAPSULE AT BEDTIME active Not Available Not Available No t Available OneTouch Ultra Test strips TEST BLOOD SUGAR 3 TIMES DAILY active Not Available Not Available Not Available meclizine 25 mg tablet TAKE 1 TABLET BY MOUTH IF NEEDED IN THE MORNING, AT NOON, AND AT BEDTIME FOR DIZZINESS OR NAUSEA. active Not Available Not Available N ot Available amlodipine 10 mg tablet TAKE 1 TABLET BY MOUTH EVERY DAY active Not Available Not Available No t Available nystatin 100,000 unit/gram topical cream APPLY TO AFFECTED AREA TWICE A DAY active Not Available Not Available No t Available ibuprofen 400 mg tablet TAKE 1 TABLET ORALLY 3 TIMES A DAY NEEDED FOR PAIN active Not Available Not Available No t Available nitroglyceri n 0.4 mg sublingual tablet TAKE 1 TABLET BY SUBLINGUAL ROUTE ONCE NEEDED CHEST PAIN. IF NO RELIEF, GO TO ER OR CALL 911. active Not Available Not Available No t Available omeprazole 20 mg capsule,teddy yed release TAKE 1 CAPSULE BY MOUTH EVERY DAY IN THE MORNING active Not Available Not Available No t Available montelukast 10 mg tablet TAKE 1 TABLET BY MOUTH EVERY DAY IN THE MORNING active Not Available Not Available No t Available metoprolol succinate ER 25 mg tablet,exten ded release 24 hr TAKE 1 TABLET BY MOUTH EVERY DAY active Not Available Not Available No t Available azelastine 137 mcg (0.1 %) nasal spray SPRAY BOTH NOSTRILS TWICE, 2 TIMES A DAY active Not Available Not Available Not Available ibuprofen 600 mg tablet TAKE 1 TABLET BY MOUTH EVERY 6 HOURS NEEDED FOR PAIN active Not Available Not Available No t Available dicyclomine 10 mg capsule TAKE 1-2 CAPSULE BY MOUTH EVERY 6 HOURS NEEDED FOR ABDOMINAL DISCOMFORT FOR 30 DAYS 90 active Not Available Not Available No t Available Ventolin HFA 90 mcg/actuatio n aerosol inhaler INHALE 2 PUFFS BY MOUTH EVERY 4 TO 6 HOURS NEEDED active Not Available Not Available No t Available valsartan 160 mg tablet TAKE 1 TABLET BY MOUTH EVERY DAY active Not Available Not Available No t Available Novolog Mix 70-30 FlexPen U-100 Insulin 100 unit/mL subcutaneous pen INJECT 23 UNITS TWICE DAILY BY SUBCUTANEOU S ROUTE PER INSULIN PROTOCOL active Not Available Not Available No t Available nitrofuranto in monohydrate/ macrocrystal s 100 mg capsule TAKE 1 CAPSULE BY MOUTH EVERY 12 HOURS WITH FOOD active Not Available Not Available No t Available vitamin B complex-foli c acid 0.4 mg tablet TAKE 1 TABLET BY MOUTH TWICE A DAY active Not Available Not Available No t Available duloxetine 20 mg capsule,teddy yed release TAKE 1 CAPSULE BY MOUTH EVERY DAY active Not Available Not Available No t Available Flovent HFA 110 mcg/actuatio n aerosol inhaler PLEASE SEE ATTACHED FOR DETAILED DIRECTIONS active Not Available Not Available N ot Available pregabalin 75 mg capsule TAKE ONE CAPSULE BY MOUTH TWO TIMES DAILY active Not Available Not Available Not Available diclofenac 1 % topical gel APPLY TO AFFECTED AREA TOPICALLY NEEDED FOR SHOULDER PAIN DAILY active Not Available Not Available N ot Available melatonin 5 mg tablet TAKE 1 TABLET BY MOUTH EVERYDAY AT BEDTIME active Not Available Not Available No t Available cholecalcife rol (vitamin D3) 50 mcg (2,000 unit) capsule TAKE 1 CAPSULE BY MOUTH EVERY DAY active Not Available Not Available No t Available Dulera 200 mcg-5 mcg/actuatio n HFA aerosol inhaler INHALE 2 PUFFS BY MOUTH TWICE A DAY *RINSE MOUTH/THROA T AFTER USE* active Not Available Not Available No t Available OneTouch Ultra2 Meter TEST BEFORE BREAKFAST, BEFORE LUNCH, AND BEFORE EVENING MEAL. TEST BLOOD SUGAR 3 TIMES DAILY active Not Available Not Available No t Available OneTouch Delica Plus Lancet 33 gauge TEST BLOOD SUGAR 3 TIMES DAILY active Not Available Not Available Not Available Trulicity 3 mg/0.5 mL subcutaneous pen injector INJECT (3MG) BY SUBCUTANEOU S ROUTE EVERY WEEK active Not Available Not Available N ot Available Flowflex COVID-19 Antigen Home Test kit USE DIRECTED active Not Available Not Available No t Available Vitals Date Recorded Heart rate Respiratory rate Oxygen saturation Oxygen saturation in Arterial blood by Pulse oximetry Body temperature Systolic blood pressure Diastolic blood pressure Provider Name and Address Organization Details Last Updated DateTime 3 73 /min 20 /min 98 % 98 % 97.9 [degF] 194 mm[Hg] 94 mm[Hg] Not Available [facility] production 3 17:20:26 Social History None recorded. Functional Status None recorded. Mental Status None recorded. Family History Nothing Reported. Medical History No medical history recorded. Gynecological HistoryNo gynecological history recorded. Obstetrics History GPAL:G 0 P 0 0 0 0 Past Encounters Encounter ID Performer Location Encounter Start Date Encounter Closed Date Diagnosis/Indication Diagnosis SNOMED-CT Code Diagnosis ICD10 Code Diagnosis Note [id number] Ravi Castillo MD [facility] [address] [place] [address] 12/31/2022 17:19:52 01/03/2023 11:18:56 Essential hypertension 30534014 I10 This 57-year-ol d female with hypertensi on treated with metoprolol XL and valsartan called [facility] because her BP has been elevated today. Earlier today she had a knee injection. Her EKG showed no acute findings. Her BP was trending down when the billiard table repairer arrived. I recommende d that she monitor her BP closely and follow-up with her PCP for any medication changes. The patient agreed with this plan. Health Concerns Section Related Observation LastModified by Organization Detai ls LastModified Time None Recorded Concern Status LastModified by Organization Details LastModified Time None Recorded Advance Directives Directive None Recorded Payers Encounter Date Sequence Insurance Name Policy Number Policy Fre[employer] Covered Member ID Freitas Member ID Guarantor Name 12/31/[address] [facility] - DOS ON OR AFTER 2022 - DUAL ELIGIBLE - DETENTION OPTIONS AND ONE CARE (MEDICARE REPLACEMENT/ADV ANTAGE - HMO) Ameena Tejada [id number] Ameena Tejada Notes Date Note Type Note Provider Name and Address Organization Details Recorded Time 12/31/2022 text/html HPI: Patient with trending elevated BP's on last visit at [facility]. Though may be due to pain. Pain Center visit today for left knee gel injection. Serial BP's elevated at that time with pain 6/10. 183/73, 172/84, 176/102. Procedure completed now at home. Took am Valsartan appox 1230pm BP now at time of call is 189/96 HR 74. Previously advised to take Toprol XL in the PM. No headache no blurred vision or numbness. Knee remains numb from local anesthesia. .................. .................. .................. .................. .................. .................. .................. ............... [facility] Nursing Assessment: Comments: No further information required to process visit Ravi Castillo MD [address] [place] [address],[address], [place], [address], [employer] 12/31/2022 17:26:53 OBGyn Episode No OBEpisode recorded.
--- OUTSIDE RECORDS SUMMARY | 2024-07-12 14:11 | XMS_ITS ---
Author Organization [facility] Address [address] [place] [address] Care Team Providers Care Production Assembler Name Role Phone Choco GANDHI, Patito Primary Care Provider Leonardo Harding [phone] REASON FOR VISIT bowel prep Medications Medication SIG (Take, Route, Frequency, Duration) Notes Start Date End Date Status MiraLax (colon prep) 17 GM/SCOOP 1 238Gm bottle mixed with Gatorade or Crystal Light Orally begin at 5:00 p.m. the day before the procedure for 1 day 07/20/2023 Active Dulcolax (colon prep) 5 MG take at 3:00 p.m and 7:00p.m. Orally two tablets twice a day for one day for 1 day 07/20/2023 Active Encounters Encounter Location Date Provider Diagnosis [facility] [address] [place] [address] 07/20/2023 Lenoardo Stratton Plan Of Treatment Medication Medication Name Sig Start Date Stop Date Notes MiraLax (colon prep) 17 GM/SCOOP 1 238Gm bottle mixed with Gatorade or Crystal Light Orally begin at 5:00 p.m. the day before the procedure for 1 day 07/20/2023 Dulcolax (colon prep) 5 MG take at 3:00 p.m and 7:00p.m. Orally two tablets twice a day for one day for 1 day 07/20/2023 Next Appt Details Provider Name:Leonardo Stratton , 07/19/2024 09:20:00 AM, [address], [address], [place], [address], Progress Notes * JENNIFFER NASSAR: 5 (58 yo F)Acc No.[id number]:07/20/2023 Patient:JAMEL VASQUEZ :1965???Age:58 Y???Sex:Female Address:[address] [place] [address] [address], [place] [address] * Refills? Start MiraLax (colon prep) Powder, 17 GM/SCOOP, Orally, 1, 1 238Gm bottle mixed with Gatorade or Crystal Light, begin at 5:00 p.m. the day before the procedure, 1 day, Refills=0 Start Dulcolax (colon prep) Tablet Delayed Release, 5 MG, Orally, 4, take at 3:00 p.m and 7:00p.m., two tablets twice a day for one day, 1 day, Refills=0 * true * Date:? Generated for Nory funk/Eulalia/Lanitting on:?07/12/2024 02:11 PM EDT
--- OUTSIDE RECORDS SUMMARY | 2024-07-12 14:11 | XMS_ITS ---
Author Organization [facility] Address [address] [place] [address] Care Team Providers Care Director Of Land Name Role Phone Choco GANDHI, Patito Primary Care Provider Leonardo Harding [phone] Allergies Allergen (clinical drug ingredient) Drug/Non Drug Allergy documented on EMR Reaction Allergy Type Onset Date Status Flexeril Unknown Drug Allergy Active Avandia (uncoded) Unknown Allergy Ac tive aspirin ASA (uncoded) Unknown Allergy Active Levaquin (uncoded) Unknown Allergy A ctive azithromycin zithromax (uncoded) Unknown Allergy Active Glucotrol Unknown Drug Allergy Active REASON FOR VISIT Patient presents today for IBS Medications Medication SIG (Take, Route, Frequency, Duration) Notes Start Date End Date Status ProAir HFA 108 (90 Base) MCG/ACT 2 puffs as needed Inhalation every 6 hrs Active NovoLOG 100 UNIT/ML 70/30 Subcutaneous a s directed Active Singulair 10 MG 1 tablet Orally Once a day Active DULoxetine HCl 20 MG 1 capsule Orally Tw ice a day for 30 day(s) Active Pregabalin 100 MG 1 capsule Orally Onc e a day Active Azelastine & Fluticasone 137 & 50 MCG/ACT as directed Nasally Acti ve Dulera 200-5 MCG/ACT 2 puffs Inhalation Twice a day Active Albuterol Sulfate (sensor) 108 (90 Base) MCG/ACT 1 puff as needed Inhalation every 4 hrs Active Vitamin B Complex - as directed Orally Active Vitamin D-3 125 MCG (5000 UT) as directed Orally Active ZyrTEC 10 MG 1 tablet Orally Once a day for 30 day(s) Active Carafate 1 GM 1 tablet on an empty stomach Orally TID for 30 day(s) 01/01/2019 Not-Taking Valsartan-hydroCHLOROthia zide 160-25 MG 1 tablet Orally Once a day for 30 day(s) 07/21/2022 Active Omeprazole 20 MG TAKE 1 CAPSULE BY MO UTH EVERY DAY IN THE MORNING for 90 Active Dicyclomine HCl 10 MG TAKE 1-2 CAPSULE B Y MOUTH EVERY 6 HOURS NEEDED FOR ABDOMINAL DISCOMFORT FOR 30 DAYS Orally Every 6 hours as needed for abdominal discomfort/cramps/bloat ing for 30 days Active Trulicity Active Nitroglycerin Active Prevalite 4 GM/DOSE USE 1/2-1 SCOOP 1-2X A DAY FOR DIARRHEA ORALLY 30 DAY(S) for 90 Active Cholestyramine 4 GM/DOSE 1/2 to 1 scoop Orally QD-BID for diarrhea Active Albuterol Sulfate HFA 108 (90 Base) MCG/ACT TAKE 2 PUFFS BY MOUTH EVERY 4 TO 6 HOURS NEEDED Inhalation for 16 Active Docusate Sodium 100 MG TAKE 1 CAPSULE BY MOUTH EVERY DAY NEEDED Oral for 30 Active Ventolin HFA 108 (90 Base) MCG/ACT TAKE 2 PUFFS BY MOUTH EVERY 4 TO 6 HOURS NEEDED Inhalation for 30 Active Flonase 50 MCG/ACT 1 spray in each nost ril Nasally Once a day Active Nitroglycerin 0.4 MG as directed Subling ual as directed Active amLODIPine Besylate 5 MG TAKE 1 TABLET B Y MOUTH EVERY DAY Oral for 30 Active Losartan Potassium 50 MG 1 tablet Orally Once a day Active Metoprolol Succinate ER 50 MG TAKE 1 TABLET BY ORAL ROUTE EVERY DAY Orally Once a day Active oxyCODONE-Acetaminophen 5-325 MG 1 tablet as needed Orally TID Active Melatonin 3 MG 1 tablet at bedtime as needed with food Orally Once a day Active Atorvastatin Calcium 10 MG 1 tablet Orally Once a day Active Problems Problem Type SNOMED Code ICD Code Onset Dates Problem Status W/U Status Risk Notes Problem Colon cancer screening (129016703) Colon cancer screening (Z12.11) Active confirmed Problem Nausea (967832345) Nausea (R11.0) Active confirmed Problem Belching (251889954) Belching (R14.2) Active confirmed Problem Hepatic fibrosis (disorder) (89946320) Liver fibrosis (K74.00) Active confirmed Vital Signs Temperature 96.8 degrees Fahrenheit 07/20/19 24 Blood pressure systolic 000 mm Hg 07/20/19 24 Blood pressure diastolic 00 mm Hg 024 Height 60 in 07/20/2023 Weight 159 lbs 07/20/2023 BMI 31.05 kg/m2 07/20/2023 Encounters Encounter Location Date Provider Diagnosis [facility] [address] [place] [address] 07/20/2023 Leonardo Stratton History of hepatitis C Z86.19 ; Irritable bowel syndrome with diarrhea K58.0 ; Colon cancer screening Z12.11 ; Nausea R11.0 ; Belching R14.2 and Liver fibrosis K74.00 Assessments Encounter Date Diagnosis (ICD Code) Assessment Notes Treatment Notes Treatment Clinical Notes Section Notes 07/20/2023 History of hepatitis C (ICD-10 - Z86.19) Overall, Thais appears well. Her liver disease remains well compensated based on her exam, history, and studies from last year. I did recommend followup studies including alpha-fetoprotein level and abdominal ultrasound for her yearly assessment and surveillance in regard to the previous hepatitis C. We did review that these studies should be done yearly. In regard to her belching and nausea which are uncomfortable for her she is already on omeprazole and denies any component of heartburn. We did review the possibility of a diabetic-induced gastroparesis and I shall schedule her for a nuclear medicine gastric emptying study in that regard. I don't think she requires an upper endoscopy at this time. I did her advise to continue omeprazole, keep her diabetes as well-controlled as possible, and to eat healthy and small meals. Trulicity can caused some gastric emptying delays as well and she may need to consider changing that depending upon the results of her gastric emptying study and her clinical course. I did recommend that she resume her cholestyramine on a regular basis in regard to the loose and frequent bowel movements to see if that can give her some symptomatic relief. Lastly, I did recommend a followup colonoscopy for screening given her last exam was 10 years ago. We did review the rationale for that in regard to colon cancer preention. Full consent was obtained for this, including risks of bleeding and perforation. The procedure will be done with monitored anesthesia care. She was given the below instructions regarding adjustment of her medications for the procedure. Thais was comfortable with this plan. Thank you again for allowing me to participate in Thais's care. I shall continue to keep you advised of her progress. 07/20/2023 Irritable bowel syndrome with diarrhea (ICD-10 - K58.0) Use the cholestyramine however for the loose and frequent bowel movements Overall, Thais appears well. Her liver disease remains well compensated based on her exam, history, and studies from last year. I did recommend followup studies including alpha-fetoprotein level and abdominal ultrasound for her yearly assessment and surveillance in regard to the previous hepatitis C. We did review that these studies should be done yearly. In regard to her belching and nausea which are uncomfortable for her she is already on omeprazole and denies any component of heartburn. We did review the possibility of a diabetic-induced gastroparesis and I shall schedule her for a nuclear medicine gastric emptying study in that regard. I don't think she requires an upper endoscopy at this time. I did her advise to continue omeprazole, keep her diabetes as well-controlled as possible, and to eat healthy and small meals. Trulicity can caused some gastric emptying delays as well and she may need to consider changing that depending upon the results of her gastric emptying study and her clinical course. I did recommend that she resume her cholestyramine on a regular basis in regard to the loose and frequent bowel movements to see if that can give her some symptomatic relief. Lastly, I did recommend a followup colonoscopy for screening given her last exam was 10 years ago. We did review the rationale for that in regard to colon cancer preention. Full consent was obtained for this, including risks of bleeding and perforation. The procedure will be done with monitored anesthesia care. She was given the below instructions regarding adjustment of her medications for the procedure. Thais was comfortable with this plan. Thank you again for allowing me to participate in Thais's care. I shall continue to keep you advised of her progress. 07/20/2023 Colon cancer screening (ICD-10 - Z12.11) Stop Trulicity a full week before the colonoscopy. Have Dr. Wilhelm adjust your Insulin injections for the day before and the day of the colonoscopy Overall, Thais appears well. Her liver disease remains well compensated based on her exam, history, and studies from last year. I did recommend followup studies including alpha-fetoprotein level and abdominal ultrasound for her yearly assessment and surveillance in regard to the previous hepatitis C. We did review that these studies should be done yearly. In regard to her belching and nausea which are uncomfortable for her she is already on omeprazole and denies any component of heartburn. We did review the possibility of a diabetic-induced gastroparesis and I shall schedule her for a nuclear medicine gastric emptying study in that regard. I don't think she requires an upper endoscopy at this time. I did her advise to continue omeprazole, keep her diabetes as well-controlled as possible, and to eat healthy and small meals. Trulicity can caused some gastric emptying delays as well and she may need to consider changing that depending upon the results of her gastric emptying study and her clinical course. I did recommend that she resume her cholestyramine on a regular basis in regard to the loose and frequent bowel movements to see if that can give her some symptomatic relief. Lastly, I did recommend a followup colonoscopy for screening given her last exam was 10 years ago. We did review the rationale for that in regard to colon cancer preention. Full consent was obtained for this, including risks of bleeding and perforation. The procedure will be done with monitored anesthesia care. She was given the below instructions regarding adjustment of her medications for the procedure. Thais was comfortable with this plan. Thank you again for allowing me to participate in Thais's care. I shall continue to keep you advised of her progress. 07/20/2023 Nausea (ICD-10 - R11.0) Overall, Thais appears well. Her liver disease remains well compensated based on her exam, history, and studies from last year. I did recommend followup studies including alpha-fetoprotein level and abdominal ultrasound for her yearly assessment and surveillance in regard to the previous hepatitis C. We did review that these studies should be done yearly. In regard to her belching and nausea which are uncomfortable for her she is already on omeprazole and denies any component of heartburn. We did review the possibility of a diabetic-induced gastroparesis and I shall schedule her for a nuclear medicine gastric emptying study in that regard. I don't think she requires an upper endoscopy at this time. I did her advise to continue omeprazole, keep her diabetes as well-controlled as possible, and to eat healthy and small meals. Trulicity can caused some gastric emptying delays as well and she may need to consider changing that depending upon the results of her gastric emptying study and her clinical course. I did recommend that she resume her cholestyramine on a regular basis in regard to the loose and frequent bowel movements to see if that can give her some symptomatic relief. Lastly, I did recommend a followup colonoscopy for screening given her last exam was 10 years ago. We did review the rationale for that in regard to colon cancer preention. Full consent was obtained for this, including risks of bleeding and perforation. The procedure will be done with monitored anesthesia care. She was given the below instructions regarding adjustment of her medications for the procedure. Thais was comfortable with this plan. Thank you again for allowing me to participate in Thais's care. I shall continue to keep you advised of her progress. 07/20/2023 Belching (ICD-10 - R14.2) Overall, Thais appears well. Her liver disease remains well compensated based on her exam, history, and studies from last year. I did recommend followup studies including alpha-fetoprotein level and abdominal ultrasound for her yearly assessment and surveillance in regard to the previous hepatitis C. We did review that these studies should be done yearly. In regard to her belching and nausea which are uncomfortable for her she is already on omeprazole and denies any component of heartburn. We did review the possibility of a diabetic-induced gastroparesis and I shall schedule her for a nuclear medicine gastric emptying study in that regard. I don't think she requires an upper endoscopy at this time. I did her advise to continue omeprazole, keep her diabetes as well-controlled as possible, and to eat healthy and small meals. Trulicity can caused some gastric emptying delays as well and she may need to consider changing that depending upon the results of her gastric emptying study and her clinical course. I did recommend that she resume her cholestyramine on a regular basis in regard to the loose and frequent bowel movements to see if that can give her some symptomatic relief. Lastly, I did recommend a followup colonoscopy for screening given her last exam was 10 years ago. We did review the rationale for that in regard to colon cancer preention. Full consent was obtained for this, including risks of bleeding and perforation. The procedure will be done with monitored anesthesia care. She was given the below instructions regarding adjustment of her medications for the procedure. Thais was comfortable with this plan. Thank you again for allowing me to participate in Thais's care. I shall continue to keep you advised of her progress. 07/20/2023 Liver fibrosis (ICD-10 - K74.00) Overall, Thais appears well. Her liver disease remains well compensated based on her exam, history, and studies from last year. I did recommend followup studies including alpha-fetoprotein level and abdominal ultrasound for her yearly assessment and surveillance in regard to the previous hepatitis C. We did review that these studies should be done yearly. In regard to her belching and nausea which are uncomfortable for her she is already on omeprazole and denies any component of heartburn. We did review the possibility of a diabetic-induced gastroparesis and I shall schedule her for a nuclear medicine gastric emptying study in that regard. I don't think she requires an upper endoscopy at this time. I did her advise to continue omeprazole, keep her diabetes as well-controlled as possible, and to eat healthy and small meals. Trulicity can caused some gastric emptying delays as well and she may need to consider changing that depending upon the results of her gastric emptying study and her clinical course. I did recommend that she resume her cholestyramine on a regular basis in regard to the loose and frequent bowel movements to see if that can give her some symptomatic relief. Lastly, I did recommend a followup colonoscopy for screening given her last exam was 10 years ago. We did review the rationale for that in regard to colon cancer preention. Full consent was obtained for this, including risks of bleeding and perforation. The procedure will be done with monitored anesthesia care. She was given the below instructions regarding adjustment of her medications for the procedure. Thais was comfortable with this plan. Thank you again for allowing me to participate in Thais's care. I shall continue to keep you advised of her progress. Plan Of Treatment Treatment Notes Assessment Notes Irritable bowel syndrome with diarrhea U se the cholestyramine however for the loose and frequent bowel movements Colon cancer screening Stop Trulicity a full week before the colonoscopy. Have Dr. Wilhelm adjust your Insulin injections for the day before and the day of the colonoscopy Pending Test Test Name Order Date LIVER PROFILE 07/20/2023 CBC w DIFF 07/20/2023 ALPHA-FETOPROTEIN,TUMOR MARKER 4 HEPATITIS C VIRAL LOAD 07/20/2023 NUC GASTRIC ANTRUM EMPTYING 07/20/2023 Prothrombin Time INR 07/20/2023 Liver Fibrosis Pnl 07/20/2023 US abdomen comp w elastography 4 Future Test Test Name Order Date COLONOSCOPY 07/20/2023 Next Appt Details Follow Up: prn, Reason: Provider Name:Leonardo Chamberlain Viral , 07/19/2024 09:20:00 AM, [address], [address], [place], [address], Progress Notes * LALY NASSARADOB: 5 (58 yo F)Acc No.[id number]:07/20/2023 Progress Notes Patient:?JAMEL NASSAR Provider:?Leonardo Stratton MD :1965???Age:58 Y???Sex:Female D ate:07/20/2023 Address:[address] [place] [address] [address], [place], [id number] Pcp:Patito Wilhelm MD Subjective: * Chief Complaints: * ???Patient presents today fo r IBS * HPI: ???incontinence:? I saw Thais in the office today for followup in regard to her previous chronic hepatitis C infection, irritable bowel syndrome with loose bowel movements, belching and nausea, and discussion of colorectal cancer screening. ?I last saw Thais in July of 2022. She currently has been feeling well in general. She did have right-sided rotator cuff surgery about 3 or 4 weeks ago. She has been having issues with belching and nausea on a frequent basis, but denies any actual heartburn, vomiting, dysphagia, anorexia, abdominal pain, jaundice, nor weight loss. She denies any definitive early satiety. Her bowel movements do remain somewhat frequent and loose, but without any signs of bleeding. In the past she had used cholestyramine with some relief. She also takes dicyclomine on a p.r.n. basis for abdominal cramps. ?She has not noticed any signs of increasing abdominal girth, edema, pruritus, nor significant fatigue. Her studies from one year ago revealed a normal liver profile, normal CBC with platelet count, normal alpha-fetoprotein level, nondetectable hepatitis C viral load, and an abdominal ultrasound that was negative for any liver mass, splenomegaly, nor ascites. * ROS:?General/Constitutional:?Change in appetite?denies.?Chills?denies.?Fatigue?denies.?Ophthalmologic:?Patient denies? Negative..?ENT:?Patient denies?Negative..?Respiratory:?Patient denies?No coughing/hemoptysis..?Cardiovascular:?Patient denies? No chest pain/orthopnea..?Gastrointestinal:?Comments?See HPI for details.?Genitourinary:?Patient denies? No dysuria/hematuria..?Musculoskeletal:?Patient complaining of?Back pain, hand pain.?Skin:?Patient denies?No rash/pruritus..?Neurologic:?Patient denies? No headaches/seizures..?Psychiatric:?Patient denies?Negative..? * Medical History:? * Surgical History:? Hysterectomy Tubal ligation Bladder surgery- to decrease urinary frequency 09/2011Carpal tunnel Heel spurs/plantar fasciitis Finger surgery 03/27/2014Rotator cuff Trigger fingers--multiple surgeries Cholecystectomy--Dr. Irby 03/13/2018Cyst on left foot removed Right shoulder surgery rotator cuff 06/24/23 * Hospitalization/Major Diagno stic Procedure:?No Hospitalization History. * Family History:?Father: dece ased, sftomach cancer.?Mother: , heart attack/depression, diagnosed with HTN (hypertension), Diabetes, Heart disease.?Siblings: alive, 2 brothers with colon polyps.? 2 brothers with colon polyps-no family hx of GI malignancy. * Social History:?Tobacco Use:?Tobacco Use/Smoking?Are you a: nonsmoker.?Drugs/Alcohol:?Alcohol Screen?Points: 0, Interpretation: Negative.?Miscellaneous:?Marital status: . Occupation: unemployed. ???She does not smoke nor use any significant amounts of alcohol. * Medications:?TakingZyrTEC 10 MG Tablet 1 tablet Orally Once a dayAzelastine & Fluticasone 137 & 50 MCG/ACT Therapy Pack as directed Nasally Dulera 200-5 MCG/ACT Aerosol 2 puffs Inhalation Twice a dayAlbuterol Sulfate (sensor) 108 (90 Base) MCG/ACT Aerosol Powder Breath Activated 1 puff as needed Inhalation every 4 hrsVitamin B Complex - Capsule as directed Orally Vitamin D-3 125 MCG (5000 UT) Tablet as directed Orally DULoxetine HCl 20 MG Capsule Delayed Release Particles 1 capsule Orally Twice a dayPregabalin 100 MG Capsule 1 capsule Orally Once a daySingulair 10 MG Tablet 1 tablet Orally Once a dayProAir HFA 108 (90 Base) MCG/ACT Aerosol Solution 2 puffs as needed Inhalation every 6 hrsNovoLOG 100 UNIT/ML Solution 70/30 Subcutaneous as directedLosartan Potassium 50 MG Tablet 1 tablet Orally Once a dayMetoprolol Succinate ER 50 MG Tablet Extended Release 24 Hour TAKE 1 TABLET BY ORAL ROUTE EVERY DAY Orally Once a dayoxyCODONE-Acetaminophen 5-325 MG Tablet 1 tablet as needed Orally TIDMelatonin 3 MG Tablet 1 tablet at bedtime as needed with food Orally Once a dayAtorvastatin Calcium 10 MG Tablet 1 tablet Orally Once a dayFlonase 50 MCG/ACT Suspension 1 spray in each nostril Nasally Once a dayNitroglycerin 0.4 MG Tablet Sublingual as directed Sublingual as directedamLODIPine Besylate 5 MG Tablet TAKE 1 TABLET BY MOUTH EVERY DAY Oral Docusate Sodium 100 MG Capsule TAKE 1 CAPSULE BY MOUTH EVERY DAY NEEDED Oral Ventolin HFA 108 (90 Base) MCG/ACT Aerosol Solution TAKE 2 PUFFS BY MOUTH EVERY 4 TO 6 HOURS NEEDED Inhalation Albuterol Sulfate HFA 108 (90 Base) MCG/ACT Aerosol Solution TAKE 2 PUFFS BY MOUTH EVERY 4 TO 6 HOURS NEEDED Inhalation Trulicity Nitroglycerin Prevalite 4 GM/DOSE Powder USE 1/2-1 SCOOP 1-2X A DAY FOR DIARRHEA ORALLY 30 DAY(S) Cholestyramine 4 GM/DOSE Powder 1/2 to 1 scoop Orally QD-BID for diarrheaValsartan-hydroCHLOROthiazide 160-25 MG Tablet 1 tablet Orally Once a dayOmeprazole 20 MG Capsule Delayed Release TAKE 1 CAPSULE BY MOUTH EVERY DAY IN THE MORNING Dicyclomine HCl 10 MG Capsule TAKE 1-2 CAPSULE BY MOUTH EVERY 6 HOURS NEEDED FOR ABDOMINAL DISCOMFORT FOR 30 DAYS Orally Every 6 hours as needed for abdominal discomfort/cramps/bloatingTaking ZyrTEC 10 MG Tablet 1 tablet Orally Once a dayTaking Azelastine & Fluticasone 137 & 50 MCG/ACT Therapy Pack as directed Nasally Taking Dulera 200-5 MCG/ACT Aerosol 2 puffs Inhalation Twice a dayTaking Albuterol Sulfate (sensor) 108 (90 Base) MCG/ACT Aerosol Powder Breath Activated 1 puff as needed Inhalation every 4 hrsTaking Vitamin B Complex - Capsule as directed Orally Taking Vitamin D-3 125 MCG (5000 UT) Tablet as directed Orally Taking DULoxetine HCl 20 MG Capsule Delayed Release Particles 1 capsule Orally Twice a dayTaking Pregabalin 100 MG Capsule 1 capsule Orally Once a dayTaking Singulair 10 MG Tablet 1 tablet Orally Once a dayTaking ProAir HFA 108 (90 Base) MCG/ACT Aerosol Solution 2 puffs as needed Inhalation every 6 hrsTaking NovoLOG 100 UNIT/ML Solution 70/30 Subcutaneous as directedTaking Losartan Potassium 50 MG Tablet 1 tablet Orally Once a dayTaking Metoprolol Succinate ER 50 MG Tablet Extended Release 24 Hour TAKE 1 TABLET BY ORAL ROUTE EVERY DAY Orally Once a dayTaking oxyCODONE-Acetaminophen 5-325 MG Tablet 1 tablet as needed Orally TIDTaking Melatonin 3 MG Tablet 1 tablet at bedtime as needed with food Orally Once a dayTaking Atorvastatin Calcium 10 MG Tablet 1 tablet Orally Once a dayTaking Flonase 50 MCG/ACT Suspension 1 spray in each nostril Nasally Once a dayTaking Nitroglycerin 0.4 MG Tablet Sublingual as directed Sublingual as directedTaking amLODIPine Besylate 5 MG Tablet TAKE 1 TABLET BY MOUTH EVERY DAY Oral Taking Docusate Sodium 100 MG Capsule TAKE 1 CAPSULE BY MOUTH EVERY DAY NEEDED Oral Taking Ventolin HFA 108 (90 Base) MCG/ACT Aerosol Solution TAKE 2 PUFFS BY MOUTH EVERY 4 TO 6 HOURS NEEDED Inhalation Taking Albuterol Sulfate HFA 108 (90 Base) MCG/ACT Aerosol Solution TAKE 2 PUFFS BY MOUTH EVERY 4 TO 6 HOURS NEEDED Inhalation Taking Trulicity Taking Nitroglycerin Taking Prevalite 4 GM/DOSE Powder USE 1/2-1 SCOOP 1-2X A DAY FOR DIARRHEA ORALLY 30 DAY(S) Taking Cholestyramine 4 GM/DOSE Powder 1/2 to 1 scoop Orally QD-BID for diarrheaTaking Valsartan-hydroCHLOROthiazide 160-25 MG Tablet 1 tablet Orally Once a dayTaking Omeprazole 20 MG Capsule Delayed Release TAKE 1 CAPSULE BY MOUTH EVERY DAY IN THE MORNING Taking Dicyclomine HCl 10 MG Capsule TAKE 1-2 CAPSULE BY MOUTH EVERY 6 HOURS NEEDED FOR ABDOMINAL DISCOMFORT FOR 30 DAYS Orally Every 6 hours as needed for abdominal discomfort/cramps/bloatingNot-Taking/PRNCarafate 1 GM Tablet 1 tablet on an empty stomach Orally TIDMedication List reviewed and reconciled with the patientNot-Taking/PRN Carafate 1 GM Tablet 1 tablet on an empty stomach Orally TIDMedication List reviewed and reconciled with the patient * Allergies:?zithromaxLevaquin ASAAvandiaGlucotrolFlexerilyes[Allergies Verified] Objective: * Vitals:?Wt: 159 lbs, Ht: 60 in, BMI:31.05 Index, BP: 000/00 mm Hg, Temp: 96.8. * Examination: ???General Examination: ?GENERAL APPEARANCE:?pleasant, well nourished, well developed, in no acute distress.?EYES:?sclera non-icteric.?ORAL CAVITY:?mucosa moist.?NECK/THYROID:?no cervical lymphadenopathy, neck supple.?SKIN:?nonjaundiced, no spider angiomata..?HEART:?S1, S2 normal.?LUNGS:?clear to auscultation bilaterally.?ABDOMEN:?normal bowel sounds, no guarding or rigidity, no hepatosplenomegaly, no masses palpable, soft, nontender, nondistended..?EXTREMITIES:?no edema.?NEUROLOGIC:?alert and oriented.? Assessment: * Assessment: 1.?Irritable bowel syndrome with diarrhea - K58.0 (Primary)?2.?History of hepatitis C - Z86.19?3.?Colon cancer screening - Z12.11?4.?Nausea - R11.0?5.?Belching - R14.2?6.?Liver fibrosis - K74.00? Overall, Thais appears well. Her liver disease remains well compensated based on her exam, history, and studies from last year. I did recommend followup studies including alpha-fetoprotein level and abdominal ultrasound for her yearly assessment and surveillance in regard to the previous hepatitis C. We did review that these studies should be done yearly. In regard to her belching and nausea which are uncomfortable for her she is already on omeprazole and denies any component of heartburn. We did review the possibility of a diabetic-induced gastroparesis and I shall schedule her for a nuclear medicine gastric emptying study in that regard. I don't think she requires an upper endoscopy at this time. I did her advise to continue omeprazole, keep her diabetes as well-controlled as possible, and to eat healthy and small meals. Trulicity can caused some gastric emptying delays as well and she may need to consider changing that depending upon the results of her gastric emptying study and her clinical course. I did recommend that she resume her cholestyramine on a regular basis in regard to the loose and frequent bowel movements to see if that can give her some symptomatic relief. Lastly, I did recommend a followup colonoscopy for screening given her last exam was 10 years ago. We did review the rationale for that in regard to colon cancer preention. Full consent was obtained for this, including risks of bleeding and perforation. The procedure will be done with monitored anesthesia care. She was given the below instructions regarding adjustment of her medications for the procedure. Thais was comfortable with this plan. Thank you again for allowing me to participate in Thais's care. I shall continue to keep you advised of her progress. Plan: * Treatment: 2.?History of hepatitis C?LAB: LIVER PROFILE ?LAB: CBC w DIFF ?LAB: ALPHA-FETOPROTEIN,TUMOR MARKER ?LAB: HEPATITIS C VIRAL LOAD ?LAB: Prothrombin Time INR ?LAB: Liver Fibrosis Pnl ?Imaging: US abdomen comp w elastography * 3.?Colon cancer screening?Procedure: COLONOSCOPY (Ordered for 07/20/2023)* with MACsched for 10/19/23 at 8:40 ammiralax Notes: Stop Trulicity a full week before the colonoscopy. Have Dr. Wilhelm adjust your Insulin injections for the day before and the day of the colonoscopy ?4.?Nausea?Imaging: NUC GASTRIC ANTRUM EMPTYING* R/O Diabetic Gastroparesissc hed for 08/10/23 at 8:30 [facility] 2nd floorfasting 8 hrs prior * 5.?Belching?Imaging: NUC GASTRIC ANTRUM EMPTYING* R/O Diabetic Gastroparesissc hed for 08/10/23 at 8:30 [facility] 2nd floorfasting 8 hrs prior * 6.?Liver fibrosis?LAB: LIVER PROFILE ?LAB: CBC w DIFF ?LAB: ALPHA-FETOPROTEIN,TUMOR MARKER ?LAB: HEPATITIS C VIRAL LOAD ?LAB: Prothrombin Time INR ?LAB: Liver Fibrosis Pnl ?Imaging: US abdomen comp w elastography* sched for 08/08/23 at 8:00 am [facility] 2nd floorfasting 8 hrs prior * * Procedure Codes:?3017F COLOR ECTAL CA SCREEN DOC [id number] TOBACCO [id number] BP SCR NOT PRFRM REC REASON NOS * Preventive Medicine:? ??Counseling:?Care goal follow-up plan:?Above Normal BMI Follow-up?Giving encouragement to exercise,?BMI management provided?Yes.? * Follow Up:?prn * * Sign off status: Completed true * Provider:?Leonardo Stratton MD Date:? 024 Generated for Jesicai ng/Fakelseag/eTransmitting on:?07/12/2024 02:11 PM EDT History and Physical Notes * HPI (History of Present Illness) Category Sub-Category Detail Notes Category Not es incontinence I saw Thais in the office today for followup in regard to her previous chronic hepatitis C infection, irritable bowel syndrome with loose bowel movements, belching and nausea, and discussion of colorectal cancer screening. I last saw Thais in July of 2022. She currently has been feeling well in general. She did have right-sided rotator cuff surgery about 3 or 4 weeks ago. She has been having issues with belching and nausea on a frequent basis, but denies any actual heartburn, vomiting, dysphagia, anorexia, abdominal pain, jaundice, nor weight loss. She denies any definitive early satiety. Her bowel movements do remain somewhat frequent and loose, but without any signs of bleeding. In the past she had used cholestyramine with some relief. She also takes dicyclomine on a p.r.n. basis for abdominal cramps. She has not noticed any signs of increasing abdominal girth, edema, pruritus, nor significant fatigue. Her studies from one year ago revealed a normal liver profile, normal CBC with platelet count, normal alpha-fetoprotein level, nondetectable hepatitis C viral load, and an abdominal ultrasound that was negative for any liver mass, splenomegaly, nor ascites Examination Category Sub-Category Detail Notes Category Not es General Examination GENERAL APPEARANCE: pleasant , well nourished, well developed, in no acute distress EYES: sclera non-icteric NECK/THYROID: no cervical lymphade nopathy, neck supple HEART: S1, S2 normal LUNGS: clear to auscultatio n bilaterally ABDOMEN: normal bowel sounds, no guarding or rigidity, no hepatosplenomegaly, no masses palpable, soft, nontender, nondistended. NEUROLOGIC: alert and oriented SKIN: nonjaundiced, no spi mirna angiomata. EXTREMITIES: no edema ORAL CAVITY: mucosa moist
--- OUTSIDE RECORDS SUMMARY | 2024-07-12 14:12 | XMS_ITS | Encounter Summary ---
Author Organization [employer] Address [address] [facility] [address] [place] [address] Care Team Providers Care Sanitarian Aide Name Role Phone Patito Wilhelm MD Primary Care Provider [phone] Wilber Christie PharmD Unavailable [phone] Reason for Visit * Reason Comments controlled substance treatment Encounter Details Date Type Department Care Team (Latest Contact Info) Description 07/06/2024 10:30 AM EDT Clinical Support [facility] [address] [place] [address] Tosha Phillips RN [address] [place], [place] [phone] Chronic bilateral low back pain, unspecified whether sciatica present (Primary Dx); Long-term current use of opiate analgesic Social History Tobacco Use Types Packs/Day Years Used Date Smoking Tobacco: Never Passive Smoke Exposure: Never Smokeless Tobacco: Never Alcohol Use Standard Drinks/Week Comments Never 0 (1 standard drink = 0.6 oz pur e alcohol) Depression Answer Date Recorded Patient Health Questionnaire-9 Score 11 12/06/2023 Patient Health Questionnaire-9 Score 11 12/06/2023 Last PHQ-9: Questionnaire Data Not on file 0 12/06/2023 Housing Stability Answer Date Recorded What is your housing situation today? I have sandra hernandez 03/27/[address] you li ve. Do you have problems with any of the following? None of the above 03/27/2024 Food Insecurity Answer Date Recorded Within the past 12 months, y ou worried that your food would run out before you got money to buy more: Never True 03/27/2024 Within the past 12 months,th e food you bought just didn't last and you didn't have enough money to get more: Never True 01/2024 Transportation Answer Date Recorded In the past 12 months, has l ack of transportation kept you from medical appts, meetings, work or from getting things needed for daily living? No 03/27/2024 Utilities Answer Date Recorded In the past 12 months, has t he electric, gas, oil or water company threatened to shut off services in your home? 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 Prescribed percocet 5mg-325mg PO q12h PRN. States has been taking as prescribed. Recent L shoulder surgery, 06/29/24 (notes in patient's chart). Pt denies use of nicotine/ETOH/street drugs/marijuana. Currently rates pain a 3/10 and states medication usually provides about 50-60% pain relief. Current pain sites are neck, shoulders, L back, lower extremities. Ibuprofen OTC PRN, Celebrex 200mg bid prn. Patient f/u with pain management. No questions/ concerns at this time. O: RETAIL STORE MANAGER Tier 4. OFFICE NURSE verified today. Rx last filled on 06/20/23. Pill count performed. Pt has 23 pills at this time, 21 expected. Medication is not overused by patient. Last PCP visit was 03/27/24. Utox performed, positive for OXY only, as expected. A: RETAIL STORE MANAGER Contract Revisit: Opioid dependence related to chronic pain. P: Patient to continue taking medication only as prescribed; chronic pain group visit scheduled for09/11/24 @ 11am. Appt reminder given. F/U sooner PRN. Patient verbalized understanding and agreed toplan. documented in this encounter Plan of Treatment Upcoming Encounters Date Type Department Care Team (Late st Contact Info) Description 08/01/2024 2:00 PM EDT Medication Management [facility] [address] [place] [address] Wilber Christie PharmD [address] [place] [address] 09/11/2024 11:00 AM EDT Office Visit [facility] [address] [place] [address] 10/12/2024 2:30 PM EDT Office Visit [facility] [address] [place] [address] Atif, Jessica, OD [address] [place] [address] documented as of this encounter Goals Goal Patient Goal Type Associated Problems Recent Progress Patient-Stated? Author Blood Pressure < 140/90 Blood Pressure 138/74(2024 1:41 PM EST) No Wilber Christie PharmD Hemoglobin A1c < 7 Result Component 7.8( 2:13 PM EST) No Wilber Christie PharmD documented as of this encounter Procedures Procedure Name Priority Date/Time Associated Diagnosis Comments POCT VINICIO-14 URINE DRUG SCREEN Routine 07/06/2024 10:56 AM EDT Long-term current use of opiate analgesic Chronic bilateral low back pain, unspecified whether sciatica present documented in this encounter Results * POCT VINICIO-14 Urine Drug Screen (07/06/2024 10:56 AM EDT) Oxycodone Screen, Urine Positive Urine Urine specimen obtained by clean catch procedure / Unknown 07/06/2024 10:56 AM EDT Narrative Tosha Phillips, RN - 07/06/2024 10:56 AM EDT .UTOX cup Lot#[id number] Exp. 12/05/25 Internal Pass Control Patito Wilhelm MD POINT OF CARE TEST ENTER/EDIT OR DERABLES Final Result documented in this encounter Visit Diagnoses Diagnosis Chronic bilateral low back pain, unspecified whether sciatica present- Primary Long-term current use of opiate analgesic Encounter for long-term (current) use of other medications documented in this encounter Additional Health Concerns Assessment Noted Time PHQ-9 Depression Total Score: 11 024 1:39 PM EDT documented as of this encounter Care Teams Sanitarian Aide Relationship Specialty Start Date End Date Patito Wilhelm MD [address] [place] [address] PCP - General Family Medicine 11/13/18 Wilber Christie, Kaia [address] [place] [phone] Pharmacist Internal Medicine 01/28/23 documented as of this encounter
--- OUTSIDE RECORDS SUMMARY | 2024-07-12 14:12 | XMS_ITS | Encounter Summary ---
Author Organization [employer] Address [address] [facility] [address] [place] [address] Care Team Providers Care Executive Marketing Assistant Name Role Phone Patito Wilhelm MD Primary Care Provider [phone] Wilber Christie PharmD Unavailable [phone] Reason for Visit * Reason Onset Date Comments Medication Question 06/09/2023 Encounter Details Date Type Department Care Team ([facility] st Contact Info) Description 06/09/2023 Telephone [facility] [address] [place], [place] [phone] Patito Wilhelm MD [address] [place], [place] [phone] Medication Question Social History Tobacco Use Types Packs/Day Years Used Date Smoking Tobacco: Never Passive Smoke Exposure: Never Smokeless Tobacco: Never Depression Answer Date Recorded Patient Health Questionnaire-9 Score 6 07/26/2022 Housing Stability Answer Date Recorded What is your housing situation today? I have sandra hernandez 02/04/[address] you li ve. Do you have problems with any of the following? None of the above 02/04/2023 Food Insecurity Answer Date Recorded Within the past 12 months, y ou worried that your food would run out before you got money to buy more: Never True 02/04/2023 Within the past 12 months,th e food you bought just didn't last and you didn't have enough money to get more: Never True Transportation Answer Date Recorded In the past 12 months, has l ack of transportation kept you from medical appts, meetings, work or from getting things needed for daily living? No 02/04/2023 Utilities Answer Date Recorded In the past 12 months, has t he electric, gas, oil or water company threatened to shut off services in your home? No 02/04/2023 Depression Answer Date Recorded Patient Health Questionnaire-2 Score 2 07/26/2022 Comments Unknown Sex and Gender Information Value Date Recorded Sex Assigned at Female 02/15/2022 10:16 AM EDT Legal Sex Female 10:16 AM EDT Gender Identity Female 02/15/2022 10:16 AM EDT Sexual Orientation Straight 02/15/2022 10 :16 AM EDT documented as of this encounter Miscellaneous Notes * Telephone Encounter - Ellis Hennessy - 06/09/2023 3:35 PM EST Tc from pt called pharmacy for oxyCODONE-acetaminophen (Percocet) 5-325 MG tablet. Pharmacy stated pt is not due until june 21 but pt stated they were due 06/06. If any questions please contact pt at [phone]. documented in this encounter Plan of Treatment Upcoming Encounters Date Type Department Care Team (Late st Contact Info) Description 08/01/2024 2:00 PM EDT Medication Management [facility] [address] [place] [address] Wilber Christie, PharmD [address] [place] [address] 09/11/2024 11:00 AM EDT Office Visit [facility] [address] [place] [address] 10/12/2024 2:30 PM EDT Office Visit [facility] [address] [place], [place] [phone] Jessica Srivastava, OD [address] [place] [address] documented as of this encounter Goals Goal Patient Goal Type Associated Problems Recent Progress Patient-Stated? Author Blood Pressure < 140/90 Blood Pressure 138/74( 025 1:41 PM EST) No Wilber Christie, PharmD documented as of this encounter Visit Diagnoses Not on filedocumented in this encounter Additional Health Concerns Assessment Noted Time PHQ-9 Depression Total Score: 6 07/27/19 1:10 PM EDT documented as of this encounter Care Teams Executive Marketing Assistant Relationship Specialty Start Date End Date Patito Wilhelm MD [address] [place] [address] PCP - General Family Medicine 11/13/18 Wilber Christie, PharmD [address] [place] [address] Pharmacist Internal Medicine 01/28/23 documented as of this encounter
--- OUTSIDE RECORDS SUMMARY | 2024-07-12 14:12 | XMS_ITS | Encounter Summary ---
Author Organization [employer] Address [address] [place] [address] [address] [place] [address] Care Team Providers Care Fashion Intern Name Role Phone Patito Wilhelm MD Primary Care Provider [phone] Wilber Christie PharmD Unavailable [phone] Encounter Details Date Type Department Care Team (Late st Contact Info) Description 07/06/2024 Orders Only [facility] [address] [place] [address] Patito Wilhelm MD [address] [place] [address] Social History Tobacco Use Types Packs/Day Years [...] AM EDT documented as of this encounter Plan of Treatment Upcoming Encounters Date Type Department Care Team (Late st Contact Info) Description 08/01/2024 2:00 PM EDT Medication Management [facility] [address] [place] [address] Wilber Christie PharmD [address] [place] [address] 09/11/2024 11:00 AM EDT Office Visit [facility] [address] [place] [address] 10/12/2024 2:30 PM EDT Office Visit [facility] [address] [place] [address] Atif, Jessica, OD [address] [place] [address] documented as of this encounter Goals Goal Patient Goal Type Associated Problems Recent Progress Patient-Stated? Author Blood Pressure < 140/90 Blood Pressure 138/74(2024 1:41 PM EST) No Wilber Christie, PharmKit Hemoglobin A1c < 7 Result Component 7.8( 2:13 PM EST) No Wilber Christie PharmD documented as of this encounter Procedures Procedure Name Priority Date/Time Associated Diagnosis Comments HEPATIC FUNCTION PANEL Routine 07/06/2024 11:02 AM EDT LIPID PANEL, STANDARD Routine 07/06/2024 11:02 AM EDT BASIC METABOLIC PANEL Routine 07/06/2024 11:02 AM EDT documented in this encounter Results * (ABNORMAL) Lipid Panel, Standard (07/06/2024 11:02 AM EDT) Triglycerides 143 <150 mg/dL [facility] Comment:Desirable Triglyceri de: less than 150 mg/dLBorderline High Triglyceride 150-199 mg/dLHigh Triglyceride: 200-499 mg/dLVery High Triglyceride: greater than or equal to 5OO mg/dL Cholesterol 171 <200 mg/dL [facility] Comment:Desirable Cholestero l: less than 200 mg/dLBorderline High Cholesterol: 200-239 mg/dLHigh Cholesterol: greater than 239 mg/dL LDL Cholesterol Calculated 100(H) <100 mg/dL [facility] Comment:Desirable LDL: less than 100 mg/dLNear Optimal/Above Optimal LDL: 110- 129 mg/dLBorderline High LDL: 130-159 mg/dLHigh LDL: 160-189 mg/dLVery High LDL: greater than or equal to 190 mg/dL HDL Cholesterol 43 >40 mg/dL [facility] Comment:Desirable HDL: great er than 40 mg/dL Note: This HDL assay may give artificially low results in patients with liver disease. 07/06/2024 11:0 2 AM EDT 07/06/2024 1:13 PM EDT us Patito Wilhelm MD LAB BLOOD ORDERABLES Final Resul t [facility] [address] [place] [phone] * (ABNORMAL) Basic Metabolic Panel (07/06/2024 11:02 AM EDT) Sodium 141 135 - 145 mmol/L [facility] Potassium 3.5 3.3 - 5.1 mmol/L [facility] Chloride 108 96 - 108 mmol/L [facility] Carbon Dioxide 26 22 - 29 mmol/L [facility] Anion Gap 11(L) 12 - 20 [facility] Urea Nitrogen (BUN) 11 9 - 16 mg/dL [facility] Creatinine, Serum 0.66 0.5 - 1.4 mg/dL [facility] Estimated Glomerular Filt Rate >60 [facility] Comment:Chronic Kidney Disea se: Estimated GFR < 60 mL/min/[id number] Kidney Disease: Estimated GFR < 15 mL/min/1.73m2 Glucose 100 60 - 115 mg/dL [facility] Calcium 8.9 8.4 - 10.2 mg/dL [facility] 07/06/2024 11:0 2 AM EDT 07/06/2024 1:13 PM EDT us Patito Wilhelm MD LAB BLOOD ORDERABLES Final Resul t [facility] [address] [place] [phone] * Hepatic Function Panel (07/06/2024 11:02 AM EDT) Bilirubin, Total 0.4 0.0 - 1.0 mg/dL [facility] Bilirubin, Direct 0.1 0.0 - 0.5 mg/dL [facility] Aspartate Amino Transferase 14 5 - 31 U/L [facility] Alanine Aminotransferase 11 0 - 31 U/L [facility] Total Protein 7.1 6.5 - 8.0 g/dL [facility] Albumin Level 4.0 3.5 - 5.0 g/dL [facility] Alkaline Phosphatase 75 39 - 117 U/L [facility] 07/06/2024 11:0 2 AM EDT 07/06/2024 1:13 PM EDT Patito Wilhelm MD LAB BLOOD ORDERABLES Final Resul t [facility] [address] [place] [phone] [phone] documented in this encounter Visit Diagnoses Not on filedocumented in this encounter Additional Health Concerns Assessment Noted Time PHQ-9 Depression Total Score: 11 024 1:39 PM EDT documented as of this encounter Care Teams Fashion Intern Relationship Specialty Start Date End Date Patito Wilhelm MD [address] [place] [address] PCP - General Family Medicine 11/13/18 Wilber Christie, PharmD [address] [place] [phone] Pharmacist Internal Medicine 01/28/23 documented as of this encounter
--- OUTSIDE RECORDS SUMMARY | 2024-07-12 14:12 | XMS_ITS | Encounter Summary ---
Author Organization [employer] Address [address] [place] [address] [address]t [place] [address] Care Team Providers Care Intelligence Officer Basic Name Role Phone Patito Wilhelm MD Primary Care Provider [phone] Wilber Christie PharmD Unavailable [phone] Reason for Visit * Reason Onset Date Comments Med Refill 06/13/2024 Encounter Details Date Type Department Care Team (Late st Contact Info) Description 06/13/2024 Refill [facility] [address] [place], [place] [phone] Patito Wilhelm MD [address] [place], [place] [phone] Chronic back pain, unspecified back location, unspecified back pain laterality Social History Tobacco Use Types Packs/Day Years [...] encounter Miscellaneous Notes * Telephone Encounter - Jess Bunn - 06/13/2024 11:40 AM EST TC from pt requesting medication refill. Medications needing refill : oxyCODONE-acetaminophen (Percocet) 5-325 MG tablet To be sent to: [facility]/pharmacy [address] [place] [address] documented in this encounter Plan of Treatment Upcoming Encounters Date Type Department Care Team (Late st Contact Info) Description 08/01/2024 2:00 PM EDT Medication Management [facility] [address] [place] [phone] Wilber Christie, PharmD [address] [place] [address] 09/11/2024 11:00 AM EDT Office Visit [facility] [address] [place] [address] 10/12/2024 2:30 PM EDT Office Visit [facility] [address] [place] [address] Jessica Srivastava, OD [address] [place] [address] documented as of this encounter Goals Goal Patient Goal Type Associated Problems Recent Progress Patient-Stated? Author Blood Pressure < 140/90 Blood Pressure 138/74(2024 1:41 PM EST) No Wilber Christie PharmD Hemoglobin A1c < 7 Result Component 7.8( 2:13 PM EST) No Wilber Christie PharmD documented as of this encounter Visit Diagnoses Diagnosis Chronic back pain, unspecified back location, unspecified back pain laterality documented in this encounter Additional Health Concerns Assessment Noted Time PHQ-9 Depression Total Score: 11 024 1:39 PM EDT documented as of this encounter Care Teams Intelligence Officer Basic Relationship Specialty Start Date End Date Patito Wilhelm MD [address] [place] [address] PCP - General Family Medicine 11/13/18 Wilber Christie PharmD [address] [place] [phone] Pharmacist Internal Medicine 01/28/23 documented as of this encounter
--- OUTSIDE RECORDS SUMMARY | 2024-07-12 14:12 | XMS_ITS | Encounter Summary ---
Author Organization [employer] Address [address] [facility] 7t [place] [address] Care Team Providers Care Fire Extinguisher Inspector Name Role Phone Patito Wilhelm MD Primary Care Provider [phone] Wilber Christie PharmD Unavailable Reason for Visit * Reason Onset Date Comments PAP Smear 08/1008/11/2023 Encounter Details Date Type Department Care Team (Late st Contact Info) Description 08/11/2023 Telephone [facility] MED[facility]INE [address] [place], [place] [phone] Patito Wilhelm MD [address] [place] [address] PAP Smear 08/10 Social History Tobacco Use Types Packs/Day Years [...] * Telephone Encounter - Ellis Hennessy - 08/11/2023 9:44 AM EDT Tc from pt calling in regards to PAP smear for today. Pt stated she wasn't able ot make it, mortgage loan underwriter attempted to r/s but no availability. Rd Scientist advised pt call back August 16 r/s for October. documented in this encounter Plan of Treatment Upcoming Encounters Date Type Department Care Team (Late st Contact Info) Description 08/01/2024 2:00 PM EDT Medication Management [facility]INE [address] [place] [address] Wilber Christie, PharmD [address] [place] [address] 09/11/2024 11:00 AM EDT Office Visit [facility] [address] [place] [address] 10/12/2024 2:30 PM EDT Office Visit [facility] OPTOMETRY [address] [place] [address] Jessica Srivastava, OD [address] [place] [address] documented as of this encounter Goals Goal [...] Time PHQ-9 Depression Total Score: 6 07/27/19 23 1:10 PM EDT documented as of this encounter Care Teams Fire Extinguisher Inspector Relationship Specialty Start Date End Date Patito Wilhelm MD [address] [place] [address] PCP - General Family Medicine 11/13/18 Wilber Christie PharmD [address] [place] [address] Pharmacist Internal Medicine 01/28/23 documented as of this encounter
--- OUTSIDE RECORDS SUMMARY | 2024-07-12 14:12 | XMS_ITS | Encounter Summary ---
Author Organization [employer] Address [address] [place] [address] 7t [place] [address] Care Team Providers Care Fruit Thinner Name Role Phone Patito Wilhelm MD Primary Care Provider [phone] Wilber Christie PharmD Unavailable [phone] Reason for Visit * Reason Onset Date Comments Appointment Request 06/22/2024 Encounter Details Date Type Department Care Team ([facility] st Contact Info) Description 06/22/2024 Telephone [facility] MEDICINE [address] [place], [place] [phone] Patito Wilhelm MD [address] [place], [place] [phone] Appointment Request Social History Tobacco Use Types Packs/Day Years [...] encounter Miscellaneous Notes * Telephone Encounter - Kristin David RN - 06/25/2024 9:31 AM EDT TC placed to pt and LVM to call back the office. When the pt calls back, she will need to be informed that the surgery below will need to be rescheduled. RN called Kori in scheduling who only had an appt available for this Tuesday 06/[address] Perez at [facility]. This is too close to the pt surgery date to have a pre op appt scheduled. Date of Surgery: 06/29/2024 Surgical procedure being done: Left shoulder anatomy Type of anesthesia: general anesthesia Lab needed: Yes EKG: Yes Surgeon's name: Facility name: [facility] Surgeon's office number: [phone] Surgeon's office fax number: [phone] Contact name (person you spoke with): Lauren Lizama office note from surgeon requested: Yes * Telephone Encounter - Naya Sofia RN - 06/22/2024 4:21 PM EST No pre-ops next week prior to pt's 06/29/24 surgery. Called [facility] schedulers to see if [facility] HDF could be utilized, no answer, will task to call again. * Telephone Encounter - Ellis Hennessy - 06/22/2024 3:10 PM EST Tc from pt requesting call back regarding to reschedule today's Pre op appt. Please contact pt at [phone]. documented in this encounter Plan of Treatment Upcoming Encounters Date Type Department Care Team (Late st Contact Info) Description 08/01/2024 2:00 PM EDT Medication Management [facility] MEDICINE [address] [place] [address] Wilber Christie PharmD [address] [place] [address] 09/11/2024 11:00 AM EDT Office Visit [facility] MEDICINE [address] [place] [address] 10/12/2024 2:30 PM EDT Office Visit [facility] OPTOMETRY [address] [place] [address] AtifJessica sheehan, OD [address] [place] [address] documented as of this encounter Goals Goal Patient Goal Type Associated Problems Recent Progress Patient-Stated? Author Blood Pressure < 140/90 Blood Pressure 138/74(2024 1:41 PM EST) No Wilber Chrisite PharmD Hemoglobin A1c < 7 Result Component 7.8( 2:13 PM EST) No Wilber Christie PharmD documented as of this encounter Visit Diagnoses Not on filedocumented in this encounter Additional Health Concerns Assessment Noted Time PHQ-9 Depression Total Score: 11 024 1:39 PM EDT documented as of this encounter Care Teams Fruit Thinner Relationship Specialty Start Date End Date Patito Wilhelm MD [address] [place] [address] PCP - General Family Medicine 11/13/18 Wilber Christie, PennyD [address] [place] [address] Pharmacist Internal Medicine 01/28/23 documented as of this encounter
--- OUTSIDE RECORDS SUMMARY | 2024-07-12 14:12 | XMS_ITS | Encounter Summary ---
Author Organization [employer] Address [address] [facility] 7t [place] [address] Care Team Providers Care Lunchroom Monitor Name Role Phone Patito Wilhelm MD Primary Care Provider [phone] Wilber Christie PharmD Unavailable [phone] Encounter Details Date Type Department Care Team (Latest Contact Info) Description 07/06/2024 Travel Social History Tobacco Use Types Packs/Day Years [...] Description 08/01/2024 2:00 PM EDT Medication Management [facility] MEDICINE [address] [place] [address] Wilber Christie PharmD [address] [place] [address] 09/11/2024 11:00 AM EDT Office Visit [facility] MEDICINE [address] [place] [address] 10/12/2024 2:30 PM EDT Office Visit [facility] OPTOMETRY [address] [place] [address] Atif, Jessica, OD [address] [place] [address] documented as of this encounter Goals Goal Patient Goal Type Associated Problems Recent Progress Patient-Stated? Author Blood Pressure < 140/90 Blood Pressure 138/74(2024 1:41 PM EST) No Wilber Christie PharmKit Hemoglobin A1c < 7 Result Component 7.8( 2:13 PM EST) No Wilber Christie PharmD documented as of this encounter Visit Diagnoses Not on filedocumented in this encounter Additional Health Concerns Assessment Noted Time PHQ-9 Depression Total Score: 11 024 1:39 PM EDT documented as of this encounter Care Teams Lunchroom Monitor Relationship Specialty Start Date End Date Patito Wilhelm MD [address] [place] [address] PCP - General Family Medicine 11/13/18 Wilber Christie, PennyD [address] [place] [address] Pharmacist Internal Medicine 01/28/23 documented as of this encounter
--- OUTSIDE RECORDS SUMMARY | 2024-07-12 14:12 | XMS_ITS | Encounter Summary ---
Author Organization [employer] Address [address] [facility] 7t [place] [address] Care Team Providers Care Account Development Manager Name Role Phone Patito Wilhelm MD Primary Care Provider [phone] Wilber Christie PharmD Unavailable [phone] Encounter Details Date Type Department Care Team ([facility] st Contact Info) Description 06/29/2024 Orders Only GENERIC EXTERNAL DATA DEPARTMENT Provider, Generic External Data Social History Tobacco Use Types Packs/Day Years [...] Description 08/01/2024 2:00 PM EDT Medication Management [facility] MEDICINE [address] [place] [address] Wilber Christie PharmD [address] [place] [address] 09/11/2024 11:00 AM EDT Office Visit [facility] [address] [place] [address] 10/12/2024 2:30 PM EDT Office Visit [facility] OPTOMETRY [address] [place] [address] Atif, Jessica, OD [address] [place] [address] documented as of this encounter Goals Goal Patient Goal Type Associated Problems Recent Progress Patient-Stated? Author Blood Pressure < 140/90 Blood Pressure 138/74(2024 1:41 PM EST) No Wilber Christie PharmKit Hemoglobin A1c < 7 Result Component 7.8( 2:13 PM EST) No Wilber Christie PharmD documented as of this encounter Procedures Procedure Name Priority Date/Time Associated Diagnosis Comments BASIC METABOLIC PANEL, FASTING Routine 06/29/2024 9:42 AM EDT CBC Routine 06/29/2024 9:42 AM EDT GLUCOSE, WHOLE BLOOD Routine 06/29/2024 9:14 AM EDT documented in this encounter Results * (ABNORMAL) Basic Metabolic Panel, Fasting (06/29/2024 9:42 AM EDT) Pathologist [facility] Sodium 144 135 - 145 mmol/L [facility] Potassium 3.9 3.3 - 5.1 mmol/L [facility] Chloride 112(H) 96 - 108 mmol/L [facility] Carbon Dioxide 25 22 - 29 mmol/L [facility] Anion Gap 11(L) 12 - 20 [facility] Urea Nitrogen (BUN) 10 9 - 16 mg/dL [facility] Creatinine, Serum 0.66 0.5 - 1.4 mg/dL [facility] Creatinine Clr Calc Pharmacy 77.6 [facility] Comment:Provided height and weight: 152.4 cm,65.771 kg.eGFR (calculated from the MDRD study equation) and eCrCl(calculated from the Cockcroft-Gault equation) are based ondifferent parameters and may not yield comparable results.If eCrCl result is absurd, please check patient'sheight/weight. Estimated Glomerular Filt Rate >60 [facility] Comment:Chronic Kidney Disea se: Estimated GFR < 60 mL/min/1.95k2Hckaro Kidney Disease: Estimated GFR < 15 mL/min/1.73m2 Glucose Fasting 83 60 - 99 mg/dL [facility] Calcium 8.8 8.4 - 10.2 mg/dL [facility] 06/29/2024 9:42 AM EDT 06/29/2024 9:52 AM EDT us Generic External Data Provider LAB BLOOD ORDERAB LES Final Result [facility] [address] [place] [address] [phone] * (ABNORMAL) CBC (06/29/2024 9:42 AM EDT) White Blood Count 7.8 4.8 - 10.8 X10*3/uL [facility] Red Blood Count 3.57(L) 4.20 - 5.50 X10*6/uL [facility] Hemoglobin 11.3(L) 12.0 - 16.0 g/dl [facility] Hematocrit 32.7(L) 37.0 - 47.0 % [facility] Mean Corpuscular Volume 91.6 80.0 - 98.0 fL [facility] Mean Corpuscular Hemoglobin 31.7 27.0 - 33.0 pg [facility] Mean Corpuscular HGB Conc 34.6 31.0 - 35.0 g/dl [facility] Red Cell Distribution Width 13.6 11.0 - 16.0 % [facility] Platelet Count 225 160 - 400 X10*3/uL [facility] Mean Platelet Volume 11.5 9.4 - 12.3 fL [facility] NRBC Pct Auto 0.0 0.0 - 0.2 /100WBC [facility] NRBC Abs Auto 0.000 0.0 - 0.012 X10*3/uL [facility] 06/29/2024 9:42 AM EDT 06/29/2024 9:52 AM EDT us Generic External Data Provider LAB BLOOD ORDERAB LES Final Result Performing Organization Address [facility]/ZIP Co de Phone Number [facility] [address] [place] [phone] * Glucose, Whole Blood (06/29/2024 9:14 AM EDT) Glucose, Whole Blood 84 60 - 115 mg/dL [facility] Comment:METER #: [id number] 06/29/2024 9:14 AM EDT 06/29/2024 9:17 AM EDT us Generic External Data Provider LAB BLOOD ORDERAB LES Final Result [facility] [address] [place] [address] [phone] documented in this encounter Visit Diagnoses Not on filedocumented in this encounter Additional Health Concerns Assessment Noted Time PHQ-9 Depression Total Score: 11 024 1:39 PM EDT documented as of this encounter Care Teams Account Development Manager Relationship Specialty Start Date End Date Patito Wilhelm MD [address] [place] [address] PCP - General Family Medicine 11/13/18 Wilber Christie, PharmD [address] [place] [phone] Pharmacist Internal Medicine 01/28/23 documented as of this encounter
--- OUTSIDE RECORDS SUMMARY | 2024-07-12 14:12 | XMS_ITS | Encounter Summary ---
Author Organization [employer] Address [address] [place] [address] 7t [place] [address] Care Team Providers Care Limnology Teacher Name Role Phone Patito Wilhelm MD Primary Care Provider [phone] Wilber Christie PharmD Unavailable [phone] Reason for Visit * Reason Onset Date Comments Nurse Triage 05/25/2024 Encounter Details Date Type Department Care Team (Late st Contact Info) Description 05/25/2024 Telephone [facility] MEDICINE [address] [place], [place] [phone] Patito Wilhelm MD [address] [place], [place] [phone] Nurse Triage Social History Tobacco Use Types Packs/Day Years [...] encounter Miscellaneous Notes * Telephone Encounter - Shannon Aburto RN - 05/25/2024 1:01 PM EST Called pt. She states that during this week she contracted Covid. Starting 2 days ago pt. Has started having low BP since 05/23/24-88/71, 90/64 then on 05/24/24- 72/59, 84/63, and today 80/62. Pt is on 3BP medications. Pt. After assessment is not drinking enough water with her Covid Dx and low Bp's. Iadvised pt. To drink 1 8 ounce cup of water every hour to help bring up her BP. Pt also is asthmatic and has been using her inhaler every day for SOB with Covid. Pt also has a productive cough of thick green mucous. Pt. Feels dizzy when her BP is low. Advised that pt. Should be evaluated due to LowBP, SOB and productive chronic cough with thick green phlegm. Will send this note to Walk in front office coordinator and Nurses as Pt. May be coming into clinic today around 3-330pm. Protocol Used: COVID-19 - Diagnosed or Suspected (Adult) Protocol-Based Disposition: Discuss with PCP and Callback by Nurse within 1 Hour Video visit not offered Positive Triage Questions: * Mild difficulty breathing (e.g., minimal/no SOB at rest, SOB with walking, pulse < 100) *low BP x 3 days in a row *SOB and using inhaler frequently *productive cough with thick green mucous * Patient is NOT HIGH RISK but strongly requests antiviral medicine, AND COVID- 19 symptoms present < 5 days * Continuous (nonstop) coughing interferes with work or school and no improvement using cough treatment per Care Advice * All higher-acuity triage questions were negative Care Advice Discussed: * Cough Medicines * Humidifier * Coughing Spells * COVID-19 - How to Protect Others - When You Are Sick With COVID-19 * COVID-19 - Face Masks for Prevention * Clean Your Hands Often * Clean High Touch Surfaces Every Day * Stay Away From Others in Your Home * Call Ahead Before Visiting Your Doctor (or GENETICS PHYSICIAN/PA) * Telephone Encounter - Jess Bunn - 05/25/2024 12:53 PM EST Symptoms: Low Blood Pressure - Caller Reports, Cough, Headache, Nausea But No Vomiting Outcome: Talk to a nurse or provider within 15 minutes Reason: Trouble walking The caller accepted this outcome. [phone] documented in this encounter Plan of Treatment Upcoming Encounters Date Type Department Care Team (Late st Contact Info) Description 08/01/2024 2:00 PM EDT Medication Management [facility] MEDICINE [address] [place] [address] Wilber Christie, PharmD [address] [place] [address] 09/11/2024 11:00 AM EDT Office Visit [facility] MEDICINE [address] [place] [address] 10/12/2024 2:30 PM EDT Office Visit [facility] OPTOMETRY [address] [place] [address] Jessica Srivastava, OD [address] [place] [address] documented as of this encounter Goals Goal [...] documented as of this encounter Care Teams Limnology Teacher Relationship Specialty Start Date End Date Patito Wilhelm MD [address] [place] [address] PCP - General Family Medicine 11/13/18 Wilber Christie PharmD [address] [place] [address] Pharmacist Internal Medicine 01/28/23 documented as of this encounter
--- OUTSIDE RECORDS SUMMARY | 2024-07-12 14:12 | XMS_ITS | Encounter Summary ---
Author Organization [employer] Address [address] [facility] 7t [place] [address] Care Team Providers Care Catalyst Impregnator Name Role Phone Patito Wilhelm MD Primary Care Provider [phone] Wilber Christie PharmD Unavailable [phone] Encounter Details Date Type Department Care Team ([facility] st Contact Info) Description 07/11/2024 Refill [facility] & PEDS [address] [place], [place] [phone] Tosha Phillips, RN [address] [place] [address] Chronic back pain, unspecified back location, unspecified [...] 2:00 PM EDT Medication Management [facility] MEDICINE [address] [place] [address] Wilber Christie PharmD [address] [place] [address] 09/11/2024 11:00 AM EDT Office Visit [facility] MEDICINE [address] [place] [address] 10/12/2024 2:30 PM EDT Office Visit [facility] OPTOMETRY [address] [place] [address] Atif, Jessica, OD [address] [place] [address] documented as of this encounter Goals Goal Patient Goal Type Associated Problems Recent Progress Patient-Stated? Author Blood Pressure < 140/90 Blood Pressure 138/74(2024 1:41 PM EST) No Wilber Christie, PharmKit Hemoglobin A1c < 7 Result Component 7.8( 2:13 PM EST) No Christie, Wilber, PharmD documented as of this encounter Visit Diagnoses Diagnosis Chronic back pain, unspecified back location, unspecified back pain laterality documented in this encounter Additional Health Concerns Assessment Noted Time PHQ-9 Depression Total Score: 11 024 1:39 PM EDT documented as of this encounter Care Teams Catalyst Impregnator Relationship Specialty Start Date End Date Patito Wilhelm MD [address] [place] [address] PCP - General Family Medicine 11/13/18 Wilber Christie, PennyD [address] [place] [address] Pharmacist Internal Medicine 01/28/23 documented as of this encounter
--- OUTSIDE RECORDS SUMMARY | 2024-07-12 14:12 | XMS_ITS | Encounter Summary ---
Author Organization [employer] Address [address] [place] [address] 7t [place] [address] Care Team Providers Care Dyno Technician Name Role Phone Patito Wilhelm MD Primary Care Provider [phone] Wilber Christie PharmD Unavailable Reason for Visit * Reason Onset Date Comments No Show 06/22/2024 Patient no show for Pre-op appt Encounter Details Date Type Department Care Team (Late st Contact Info) Description 06/22/2024 Telephone [facility] MEDICINE [address] [place], [place] [phone] Patito Wilhelm MD [address] [place], [place] [phone] No Show (Patient no show for Pre-op appt ) Social History Tobacco Use Types Packs/Day Years [...] encounter Miscellaneous Notes * Telephone Encounter - Trisha Tai RN - 06/22/2024 10:49 AM EST Pt to call to r/s PRN * Telephone Encounter - Valeri Hennessy - 06/22/2024 10:46 AM EST Patient no show for Pre-op appt documented in this encounter Plan of Treatment Upcoming Encounters Date Type Department Care Team (Late st Contact Info) Description 08/01/2024 2:00 PM EDT Medication Management [facility] MEDICINE [address] [place] [address] Wilber Christie, PharmD [address] [place] [address] 09/11/2024 11:00 AM EDT Office Visit [facility] MEDICINE [address] [place] [address] 10/12/2024 2:30 PM EDT Office Visit [facility] OPTOMETRY [address] [place] [address] Jessica Srivastava, OD [address] [place] [address] documented as of this encounter Goals Goal [...] documented as of this encounter Care Teams Dyno Technician Relationship Specialty Start Date End Date Patito Wilhelm MD [address] [place] [address] PCP - General Family Medicine 11/13/18 Wilber Christie PharmD [address] [place] [address] Pharmacist Internal Medicine 01/28/23 documented as of this encounter
--- OUTSIDE RECORDS SUMMARY | 2024-07-12 14:12 | XMS_ITS | Encounter Summary ---
Author Organization [employer] Address 75 [facility] 7t [place] [address] Care Team Providers Care Welding Machine Operator Friction Name Role Phone Patito Wilhelm MD Primary Care Provider [phone] Wilber Christie PharmD Unavailable [phone] Reason for Visit * Reason Onset Date Comments Med Refill 07/06/2024 Encounter Details Date Type Department Care Team ([facility] st Contact Info) Description 07/06/2024 Refill [facility] MED & PEDS [address] [place] [address] Tosha Phillips, RN [address] [place] [address] Type 2 diabetes mellitus with both eyes affected by mild nonproliferative retinopathy without macular edema, with long-term current use of insulin ([facility]) Social History Tobacco Use Types Packs/Day Years [...] the past 12 months, has t he [employer] gas, oil or water company threatened to [...] 08/01/2024 2:00 PM EDT Medication Management [facility] MEDICINE [address] [place] [address] Wilber Christie, PharmD [address] [place] [address] 09/11/2024 11:00 AM EDT Office Visit [facility] MEDICINE [address] [place] [address] 10/12/2024 2:30 PM EDT Office Visit [facility] OPTOMETRY [address] [place] [address] Jessica Srivastava, OD [address] [place] [address] documented as of this encounter Goals Goal Patient Goal Type Associated Problems Recent Progress Patient-Stated? Author Blood Pressure < 140/90 Blood Pressure 138/74(2024 1:41 PM EST) No Christie, Wilber, PharmD Hemoglobin A1c < 7 Result Component 7.8( 5 2:13 PM EST) No Wilber Christie PharmD documented as of this encounter Visit Diagnoses Diagnosis Type 2 diabetes mellitus with both eyes affected by mild nonproliferative retinopathy without macular edema, with long-term current use of insulin ([facility]) documented in this encounter Additional Health Concerns Assessment Noted Time PHQ-9 Depression Total Score: 11 12/05/ 024 1:39 PM EDT documented as of this encounter Care Teams Welding Machine Operator Friction Relationship Specialty Start Date End Date Patito Wilhelm MD [address] [place] [address] PCP - General Family Medicine 11/13/18 Wilber Christie PharmD [address] [place] [phone] Pharmacist Internal Medicine 01/28/23 documented as of this encounter
--- OUTSIDE RECORDS SUMMARY | 2024-07-12 14:12 | XMS_ITS | Encounter Summary ---
Author Organization [employer] Address [address] [facility] 7t [place] [address] Care Team Providers Care Production Operations Inspector Name Role Phone Patito Wilhelm MD Primary Care Provider [phone] Wilber Christie PharmD Unavailable [phone] Encounter Details Date Type Department Care Team ([facility] Contact Info) Description 07/06/2024 Telephone [facility] [address] [place], [place] [phone] Tosha Phillips, RN [address] [place] [address] Social History Tobacco Use Types Packs/Day Years [...] encounter Miscellaneous Notes * Telephone Encounter - Tosha Phillips RN - 07/06/2024 10:30 AM EDT .What GRANTS DIRECTOR Tier would you like this patient to be? Tier 1 = HIGH RISK, Monthly GRANTS DIRECTOR visits Tier 2 = MODerate RISK, Q3 Month visits Tier 3 = LOW RISK = Q4-6 month visits documented in this encounter Plan of Treatment Upcoming Encounters Date Type Department Care Team (Late st Contact Info) Description 08/01/2024 2:00 PM EDT Medication Management [facility] [address] [place] [address] Wilber Christie, PharmD [address] [place] [address] 09/11/2024 11:00 AM EDT Office Visit [facility] [address] [place] [address] 10/12/2024 2:30 PM EDT Office Visit [facility] OPT[facility] [address] [place] [address] Jessica Srivastava, OD [address] [place] [address] documented as of this encounter Goals Goal [...] documented as of this encounter Care Teams Production Operations Inspector Relationship Specialty Start Date End Date Patito Wilhelm MD [address] [place] [address] PCP - General Family Medicine 11/13/18 Wilber Christie PharmD [address] [place] [address] Pharmacist Internal Medicine 01/28/23 documented as of this encounter
--- OUTSIDE RECORDS SUMMARY | 2024-07-12 14:12 | XMS_ITS | Encounter Summary ---
Author Organization [employer] Address [address] [facility] 7t [place] [address] Care Team Providers Care Pest Control Chemical Technician Name Role Phone Patito Wilhelm MD Primary Care Provider [phone] Wilber Christie PharmD Unavailable Reason for Visit * Reason Onset Date Comments Med Refill 04/06/2023 Encounter Details Date Type Department Care Team (Late st Contact Info) Description 04/06/[address] [facility] [address] [place], [place] [phone] Patito Wilhelm MD [address] [place], [place] [phone] Med Refill Social History Tobacco Use Types Packs/Day Years [...] encounter Miscellaneous Notes * Telephone Encounter - Nimco Muir - 04/06/2023 11:32 AM EST Tc from pt requesting med refill on oxyCODONE-acetaminophen (Percocet) 5-325 MG tablet Please sent to [facility]/pharmacy #[id number] [place], [place] - [address] [place] [address] documented in this encounter Plan of Treatment Upcoming Encounters Date Type Department Care Team (Late st Contact Info) Description 08/01/2024 2:00 [address] ED[address] Medication [address] [facility] [address] [place] [address] Wilber Christie, PharmD [address] [place] [address] 09/11/2024 11:00 AM EDT Office Visit [facility] [address] [place] [address] 10/12/2024 2:30 PM EDT Office Visit [facility] OPTOM[facility] [address] [place], [place] [phone] Jessica Srivastava, OD [address] [place] [address] documented as of this encounter Goals Goal [...] documented as of this encounter Care Teams Pest Control Chemical Technician Relationship Specialty Start Date End Date Patito Wilhelm MD [address] [place] [address] PCP - General Family Medicine 11/13/18 Wilber Christie, PharmD [address] [place] [address] Pharmacist Internal Medicine 01/28/23 documented as of this encounter
--- OUTSIDE RECORDS SUMMARY | 2024-07-12 14:12 | XMS_ITS | Encounter Summary ---
Author Organization [employer] Address [address] [place] [address] 7t [place] [address] Care Team Providers Care Pattern Drum Maker Name Role Phone Patito Wilhelm MD Primary Care Provider [phone] Wilber Christie PharmD Unavailable [phone] Reason for Visit * Reason Onset Date Comments Med Refill 07/11/2024 Encounter Details Date Type Department Care Team (Late st Contact Info) Description 07/11/2024 Telephone [facility] [address] [place], [place] [phone] Patito Wilhelm MD [address] [place], [place] [phone] Med Refill Social History Tobacco Use Types [...] * Telephone Encounter - Jess Bunn - 07/11/2024 2:42 PM EDT TC from pt requesting medication refill. Medications needing refill : oxyCODONE-acetaminophen (Percocet) 5-325 MG tablet To be sent to: [address] [address] documented in this encounter Plan of Treatment Upcoming Encounters Date Type Department Care Team (Late st Contact Info) Description 08/01/2024 2:00 PM EDT Medication Management [facility] [address] [place] [address] Wilber Christie, PharmD [address] [place] [address] 09/11/2024 11:00 AM EDT Office Visit [facility] [address] [place] [address] 10/12/2024 2:30 PM EDT Office Visit [facility] OPT[facility] [address] [place] [address] Jessica Srivastava, OD [address] [place] [address] documented as of this encounter Goals Goal Patient Goal Type Associated Problems Recent Progress Patient-Stated? Author Blood Pressure < 140/90 Blood Pressure 138/74(2024 1:41 PM EST) No Wibler Christie PharmD Hemoglobin A1c < 7 Result Component 7.8( 2:13 PM EST) No Wilber Christie, Kaia documented as of this encounter Visit Diagnoses Not on filedocumented in this encounter Additional Health Concerns Assessment Noted Time PHQ-9 Depression Total Score: 11 024 1:39 PM EDT documented as of this encounter Care Teams Pattern Drum Maker Relationship Specialty Start Date End Date Patito Wilhelm MD [address] [place] [address] PCP - General Family Medicine 11/13/18 Wilber Christie, PennyD [address] [place] [address] Pharmacist Internal Medicine 01/28/23 documented as of this encounter
--- OUTSIDE RECORDS SUMMARY | 2024-07-12 14:12 | XMS_ITS | Encounter Summary ---
Author Organization [employer] Address [address] [facility] 7t [place] [address] Care Team Providers Care Emergency Services Dispatcher Name Role Phone Patito Wilhelm MD Primary Care Provider [phone] Wilber Christie PharmD Unavailable [phone] Reason for Visit * Reason Onset Date Comments Med Refill 03/08/2023 Encounter Details Date Type Department Care Team (Late st Contact Info) Description 03/08/2023 Telephone [facility] [address] [place], [place] [phone] Patito Wilhelm MD [address] [place], [place] [phone] Med Refill Social History Tobacco Use Types [...] * Telephone Encounter - Nimco Muir - 03/08/2023 3:58 PM EST Tc from pt requesting med refill on oxyCODONE-acetaminophen (Percocet) 5-325 MG tablet Please sent to [facility]/pharmacy #[id number] [place], [place] - [address] [place] [address] documented in this encounter Plan of Treatment Upcoming Encounters Date Type Department Care Team (Late st Contact Info) Description 08/01/2024 2:00 PM EDT Medication Management [facility] [address] [place] [address] Wilber Christie, PharmD [address] [place] [address] 09/11/2024 11:00 AM EDT Office Visit [facility] [address] [place] [address] 10/12/2024 2:30 PM EDT Office Visit [facility] [address] [place], [place] [phone] Jessica Srivastava, OD [address] [place] [address] documented as of this encounter Goals Goal [...] documented as of this encounter Care Teams Emergency Services Dispatcher Relationship Specialty Start Date End Date Patito Wilhelm MD [address] [place] [address] PCP - General Family Medicine 11/13/18 Wilber Christie, PharmD [address] [place] [address] Pharmacist Internal Medicine 01/28/23 documented as of this encounter
--- OUTSIDE RECORDS SUMMARY | 2024-07-12 14:13 | XMS_ITS ---
Author Organization [facility] Address [address] [place] [address] Care Team Providers Care Roll Reclaimer Name Role Phone Choco GANDHI, Patito Primary Care Provider Leonardo Harding Unavailable [phone] REASON FOR VISIT screening Problems Problem Type SNOMED Code ICD Code Onset Dates Problem Status W/U Status Risk Notes Problem Diverticular disease of colon (896315575) Diverticulosis of large intestine without perforation or abscess without bleeding (K57.30) Active confirmed Encounters Encounter Location Date Provider Diagnosis [facility] [address] [place], [place] [phone] 10/19/2023 Leonardo Stratton Encounter for scre ening [...] Of Treatment Next Appt Details Provider Name:Leonardo Startton , 07/19/2024 09:20:00 AM, [address], [address], [place], [address], Progress Notes * ANDERSON NASSARB: 5 (59 yo F)Acc No.[id number]:10/19/2023 COLON WITH MAC Patient:?JAMEL NASSAR Provider:?Leonardo Stratton MD :1965???Age:58 Y???Sex:Female D ate:10/19/2023 Address:[address] [place] [address] [address], [id number] Pcp:Patito Wilhelm MD Subjective: * Chief Complaints: * ???1. Screening. * Medical History:? Objective: * Vitals:? Assessment: * Assessment: 1.?Encounter for screening c olonoscopy - Z12.11 (Primary)???2.?Diverticulosis of large intestine without perforation or abscess without bleeding - K57.30???3.?Other hemorrhoids - K64.8??? Plan: * Treatment: * Procedure Codes:?01913 DIAGN OSTIC COLONOSCOPY * * The named appointment provid er may or may not be the originator of this progress note, and it is not deemed complete until electronically signed by the appointment provider. Sign off status: Pending * Provider:?Leonardo Stratton MD Date:? 024 Generated for Nory funk/Eulalia/eTransmitting on:?07/12/2024 02:13 PM EDT
--- OUTSIDE RECORDS SUMMARY | 2024-07-12 14:13 | XMS_ITS | Clinical Summary ---
Author Organization [facility] Address [address] [facility] [address] [place] [address] Phone Care Team Providers Care Non Destructive Testing Scientist Name Role Phone Patito Wilhelm MD Primary Care Provider [phone] Allergies Active Allergy Reactions Criticality Noted Date Comments Aspirin Other (see comments) 04/01/2010 Azithromycin Anaphylaxis,Other (s ee comments) High 09/20/2013 Cyclobenzaprine Rash,Other (see comments) Low 12/10/2016 Glipizide Other (see comments) 09/20/2013 Latex 01/05/2022 Levofloxacin Other (see comments),Swelling 11/15/2012 Other reaction(s): Unknown Rosiglitazone Other (see comments) 06/06/2021 Other reaction(s): Unknown Other reaction(s): Unknown Medications pregabalin (LYRICA) 75 MG capsule Take 1 capsule by mouth in the morning and 1 capsule in the evening. 3 Active oxyCODONE-acet aminophen (PERCOCET) 5-325 MG per tablet TAKE 1 TABLET BY MOUTH EVERY 12 (TWELVE) HOURS IF NEEDED FOR SEVERE PAIN FOR UP TO 28 DAYS. 8 Active omeprazole (PriLOSEC) [address] capsule Take 1 capsule by mouth every morning 2 Active nystatin (MYCOSTATIN) cream APPLY TO AFFECTED AREA TWICE A DAY 3 Active montelukast (SINGULAIR) 10 MG tablet Take 1 tablet by mouth 1 (one) time each day in the morning Active metoprolol tartrate 25 MG tablet Take 25 mg by mouth 9 Active meclizine (ANTIVERT) 25 MG tablet TAKE 1 TABLET BY MOUTH IF NEEDED IN THE MORNING, AT NOON, AND AT BEDTIME FOR DIZZINESS OR NAUSEA. 3 Active OneTouch Delica Lancets 33G misc 1 Lancet 3 Active Insulin Pen Needle (B-D ULTRAFINE III SHORT PEN) 31G X 8 MM misc USE DIRECTED 3 TIMES A DAY 2 Active insulin aspart protamine-insu gurwinder aspart (NovoLOG MIX 70/30 FLEXPEN) (70-30) 100 UNIT/ML injection INJECT 23 UNITS TWICE DAILY BY SUBCUTANEOUS ROUTE PER INSULIN PROTOCOL 3 Active fluticasone HFA (Flovent HFA) 110 MCG/ACT inhaler PLEASE SEE ATTACHED FOR DETAILED DIRECTIONS 3 Active DULoxetine (CYMBALTA) [address] capsule TAKE 1 CAPSULE BY MOUTH EVERY DAY Active dicyclomine (BENTYL) 10 MG capsule TAKE 1-2 CAPSULE BY MOUTH EVERY 6 HOURS NEEDED FOR ABDOMINAL DISCOMFORT FOR 30 DAYS 90 2 Active Cholecalcifero l 50 MCG (1999 UT) capsule Take 1 tablet by mouth 1 (one) time each day 3 Active cetirizine (ZyrTEC) 10 MG tablet Take 1 tablet by mouth 1 (one) time each day in the morning 3 Active Blood Glucose Monitoring Suppl (ONE TOUCH ULTRA 2) w/Device kit 1 kit 3 Active B Complex Vitamins (VITAMIN B COMPLEX PO) Take 1 tablet by mouth in the morning and 1 tablet in the evening. 3 Active Azelastine HCl 137 MCG/SPRAY solution SPRAY BOTH NOSTRILS TWICE, 2 TIMES A DAY 2 Active albuterol (2.5 MG/3ML) 0.083% nebulizer solution TAKE 3 ML WITH NEBULIZER EVERY 6 HOURS 1 Active Ozempic, 0.25 or 0.5 MG/DOSE, 2 MG/3ML solution pen-injector Inject 0.25 mg under the skin 4 Active rosuvastatin (CRESTOR) 20 MG tablet Take 20 mg by mouth 1 (one) time each day 4 Active budesonide-for moterol (SYMBICORT) 160-4.5 MCG/ACT inhaler Inhale 2 puffs in the morning and 2 puffs before bedtime. Rinse mouth with water after use to reduce aftertaste and incidence of candidiasis. Do not swallow.. Active celecoxib (CeleBREX) 200 MG capsule Take 200 mg by mouth in the morning and 200 mg in the evening. Active valsartan-hydr oCHLOROthiazid e (Diovan HCT) 320-25 MG per tablet Take 1 tablet by mouth 1 (one) time each day Need not fill hctz if filling this prescriptions 90 tablet 3 4 02/07/20 Active Active Problems Problem Noted Date Diagnosed Date Gastroesophageal reflux disease 05/03/2023 05/03/2023 Sacroiliac disorder 05/03/2023 05/03/2023 Seasonal allergy 05/03/2023 05/03/2023 Sinusitis 05/03/2023 05/03/2023 Dyslipidemia 01/10/2023 05/03/2023 Overview (05/03/2023): Last Assessment & Plan: - last lipid profile: 12/09/22 TC 207; TG 100; HDL 51; LDL 136 - current medication: Atorvastatin 10 mg at bedtime - continue working on lifestyle modification Obesity 01/10/2023 05/03/2023 Pain in right shoulder 12/13/2022 Overview (05/03/2023): Last Assessment & Plan: - s/p right rotator cuff repair in 2004 - Seen by Orthopedist on 12/21/22 - MRI ordered - f/u with Orthopedist after MRI is completed Biliary sludge 11/05/2022 05/03/2023 History of hepatitis C 11/05/2022 4 Current use of insulin 08/09/2022 4 Large breast 07/26/2022 05/03/2023 Overview (05/03/2023): Last Assessment & Plan: -Pt suffering from recurrent herlinda infection under breasts and chronic neck/upper back and shoulder pain -evaluated for reduction in the past, but at the time, her DM was not controlled -at this time DM are controlled -referred to plastic surgery, but pt needs to have physical therapy for back and neck pain prior to evaluation - referred to PT Mass of foot 05/14/2022 05/03/2023 Overview (05/03/2023): Last Assessment & Plan: - subcutaneous, plantar - s/p excisional biopsy by Dr. 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 Right lower quadrant pain 05/14/20222023 Overview (05/03/2023): - check lab - evaluate with CT scan - optimize Tx with dicyclomine Disorder of gallbladder 05/09/2022 05/03/19 24 Meralgia paresthetica 05/09/2022 05/03/2023 Overview (05/03/2023): Last Assessment & Plan: -followed by pain management -pt is now having similar sxs on her right thigh Recurrent major depressive episodes, moderate 05/03/2023 Insomnia 02/24/2018 05/03/2023 Irritable bowel syndrome 05/04/2017 024 Overview (05/03/2023): Last Assessment & Plan: - Followed by GI, last appt in July 2022 - Prescribed dicyclomine - Continue as prescribed Trochanteric bursitis of right hip 02/09/2017 05/03/2023 Overview (05/03/2023): Last Assessment & Plan: - recommended to check with bridge painter helper if she can receive steroid injection Chronic primary bladder pain syndrome 08/14/2012 05/03/2023 Overview (05/03/2023): Last Assessment & Plan: -Followed by urologist, [facility], last seen on 02/22/22 -Prescribed tamsulosin Chronic low back pain 08/14/2012 05/03/2023 Overview (05/03/2023): Last Assessment & Plan: -Seen by bridge painter helper on 12/16/22, yet mainly for left knee pain -Received lumbar facet block bilateral on 04/28/22 -Continue judicious use of oxycodone-APAP and pregabalin -Continue topical diclofenac Hypertension 11/25/2011 05/03/2023 Overview (05/03/2023): Last Assessment & Plan: -Goal BP < 140/90 per JNC-8 and < 130/80 per ACC/AHA guideline (Treatment threshold ? 130/80 ) -Questionable medication adherence -Continue checking home BP -Continue working on lifestyle modification -Continue metoprolol succinate 50 mg daily -Increase Valsartan to 320mg daily -Treatment Hx: lisinpril was discontinued due to cough;Losartan was self- discontinued due to dry mouth; amlodipine was self-discontinued due to dry mouth -Follow up in 3 mo, sooner if any problem arises Asthma 09/20/2011 05/03/2023 Overview (05/03/2023): Last Assessment & Plan: -Followed by [facility] pulmonology, last seen on 11/30/21 -Questionable adherence to medications according to refill history -Reviewed her medications today and discussed about the importance of adherence -Continue Dulera and Spiriva as maintenance -Continue albuterol HFA prn as rescue -Consider referring to MTM -Urged to schedule appt with topology professor; pt verbalized understanding Type 2 diabetes mellitus 09/20/2011 024 Overview (05/03/2023): Last Assessment & Plan: - HgbA1C 7.1% on 12/06/22, improved from 7.5% on 07/26/22 -Continue working on lifestyle modification. -Being prescribed Novolog 70/30 24 units qAM and 23 units qPM, yet questionable adherence, and pt is still stating she has been taking. Continue checking with pt how many units she has been administering -Continue Trulicity from 3.0 mg weekly -Previous Tx: metformin - discontinued when she had active Hep C. -Check the satus of Voiceite -Last eye exam: 06/18/22, no retinopathy -Last foot exam: 10/20/21 -Last microalbumin test: 12/09/22 UACR 8.8 Last lipid profile: 12/09/22 TC 207; TG 100; HDL 51 ;LDL 136 Last dental exam: Immunizations: up to date Pain of knee region 09/20/2011 05/03/2023 Overview (05/03/2023): Last Assessment & Plan: - pt has chronic knee pain, possibly referred pain component as well - most likely trochanteric bursitis - evaluate with X-ray - encouraged to try exercise for hip pain. - refer to PT Last Assessment & Plan: - Following with [facility] Benchroom Shop Optician, last seen on 12/16/22, started on Euflexxa injection - XR on 12/16/22 showed : mild Osteoarthritis - Currently receiving intraarticular Euflexxa (hyaluronate derivative) Injection - Continue current Tx plan per bridge painter helper Viral hepatitis C 09/20/2011 05/03/2023 Social History Tobacco Use Types Packs/Day Years Used Date Smoking Tobacco: Never Assessed Tobacco Cessation:Counseling Given: Not Answered Comments Unknown Sex and Gender Information Value Date Recorded Sex Assigned at Not on file Legal Sex Female 1:34 PM EDT Gender Identity Not on file Sexual Orientation Not on file Last Filed Vital Signs Vital Sign Reading Time Taken Comments Blood Pressure 130/82 02/07/2024 1:37 PM EDT Pulse 57 02/07/2024 1:37 PM EDT Temperature - - Respiratory Rate - - Oxygen Saturation 98% 02/07/2024 1:37 PM EDT Inhaled Oxygen Concentration - - Weight 69 kg (152 lb 3.2 oz) 02/07/2024 1:37 PM EDT Height - - Body Mass Index - - Plan of Treatment Upcoming Encounters Date Type Department Care Team (Late st Contact Info) Description 02/05/2025 1:00 PM EDT [facility] [address] [facility] [address] [place] [phone] Jareth Rowan MD [address] [facility] [address] [place] [phone] Health Maintenance Due Date Last Done Comments Breast Cancer Screening 1965 Hepatitis B Vaccine (1 of 3 - 19+ 3-dose series) 1984 Colorectal Cancer Screening: Annual FOBT 2014 Colorectal Cancer Screening: Colonoscopy 2014 Colorectal Cancer Screening: Sigmoidoscopy 2014 Diabetes: Ophthalmology Exam 02/15/2023 Diabetes: Pedal Pulse Checked 02/15/2023 Diabetes: Sensory Foot Exam 02/15/2023 Diabetes: Visual Foot Exam 02/15/2023 Influenza Vaccine (#1) 2023 3, 01/05/2022, 02/06/2021, Additional history exists Diabetes: Hemoglobin A1C 03/07/2024 024, 06/02/2023, 12/06/2022 Pneumococcal Vaccine: Pediat rics (0 to 5 Years) and At-Risk Patients (6 to 64 Years) Completed 10/08/2022, 05/10/2022, 02/13/[address] [place] [place] [address] ([id number]) [place] [address] ([id number]) Care Teams Non Destructive Testing Scientist Relationship Specialty Start Date End Date Patito Wilhelm MD [address] [place] [address] PCP - General Family Medicine 02/07/24
--- OUTSIDE RECORDS SUMMARY | 2024-07-12 14:13 | XMS_ITS | Encounter Summary ---
Author Organization [facility] Address [address] [place] [address] 7 [place] [address] Care Team Providers Care Machine Plate Stacker Name Role Phone Patito Wilhelm MD Primary Care Provider [phone] Wilber Christie PharmD Unavailable [phone] Reason for Referral * Consultation (Routine) - Authorized Specialty Diagnoses / Procedures Referred By Tahir daly Referred To Contact Pharmacy Diagnoses Primary hypertension Type 2 diabetes mellitus with both eyes affected by mild nonproliferative retinopathy without macular edema, with long-term current use of insulin (CMS/HCC) Patito Wilhelm MD [address] [place] [address] Phone: tel: fax: Referral ID Status Reason Start Date Expiration Date Visits Requested Visits Authorized [id number] Authorized Consult and Treat 02/09/2024 02/08/2025 6 6 Encounter Details Date Type Department Care Team (Late st Contact Info) Description 02/09/2024 Orders Only [facility] [address] [place] [phone] Patito Wilhelm MD [address] [place], [place] [phone] Primary hypertension (Primary Dx); Type 2 diabetes mellitus with both eyes affected by mild nonproliferative retinopathy without macular edema, with long-term current use of insulin (CMS/HCC) Social History Tobacco Use Types Packs/Day Years [...] Recorded Patient Health Questionnaire-2 Score 4 12/06/2023 Comments Unknown Sex and Gender Information Value [...] Description 08/01/2024 2:00 PM EDT Medication Management [facility] [address] [place] [address] Wilber Christie, PharmD [address] [place] [address] 09/11/2024 11:00 AM EDT Office Visit [facility] [address] [place] [address] 10/12/2024 2:30 PM EDT Office Visit [facility] OPTOMETRY [address] [place] [address] Jessica Srivastava, OD [address] [place] [address] Scheduled Referrals Name Type Priority Associated Diagnoses Orde r Schedule Referral to Pharmacy CDTM Outpatient Referral Routine Primary hypertension Type 2 diabetes mellitus with both eyes affected by mild nonproliferative retinopathy without macular edema, with long-term current use of insulin (CMS/HCC) Ordered: 02/09/2024 documented as of this encounter Goals Goal Patient Goal Type Associated Problems Recent Progress Patient-Stated? Author Blood Pressure < 140/90 Blood Pressure 138/74(2024 1:41 PM EST) No Wilber Christie, Kaia Hemoglobin A1c < 7 Result Component 7.8( 2:13 PM EST) No Wilber Christie PharmD documented as of this encounter Visit Diagnoses Diagnosis Primary hypertension- Primary Unspecified essential hypertension Type 2 diabetes mellitus with both eyes affected by mild nonproliferative retinopathy without macular edema, with long-term current use of insulin (CMS/HCC) documented in this encounter Additional Health Concerns Assessment Noted Time PHQ-9 Depression Total Score: 11 024 1:39 PM EDT documented as of this encounter Care Teams Machine Plate Stacker Relationship Specialty Start Date End Date Patito Wilhelm MD [address] [place] [address] PCP - General Family Medicine 11/13/18 Wilber Christie, PharmD [address] [place] [address] Pharmacist Internal Medicine 01/28/23 documented as of this encounter
--- OUTSIDE RECORDS SUMMARY | 2024-07-12 14:13 | XMS_ITS | Encounter Summary ---
Author Organization [employer] Address [address] [place] [address] 7[address] [place] [address] Care Team Providers Care Shopper'S Aide Name Role Phone Patito Wilhelm MD Primary Care Provider [phone] Wilber Christie PharmD Unavailable [phone] Reason for Visit * Reason Comments Med Refill Encounter Details Date Type Department Care Team (Late st Contact Info) Description 03/27/2024 Refill [facility] [address] [place] [address] Patito Wilhelm MD [address] [place] [address] Type 2 diabetes mellitus with diabetic polyneuropathy, with long-term current use of insulin ([facility]) Social History Tobacco Use Types Packs/Day Years [...] 2:00 PM EDT Medication Management [facility] [address] [place] [address] Wilber Christie, PharmD [address] [place] [address] 09/11/2024 11:00 AM EDT Office Visit [facility] [address] [place] [address] 10/12/2024 2:30 PM EDT Office Visit [facility] [address] [place] [address] Jessica Srivastava, OD [address] [place] [address] documented as of this encounter Goals Goal Patient Goal Type Associated Problems Recent Progress Patient-Stated? Author Blood Pressure < 140/90 Blood Pressure 138/74(2024 1:41 PM EST) No Wilber Christie, PharmD Hemoglobin A1c < 7 Result Component 7.8( 5 2:13 PM EST) No Wilber Christie, PharmD documented as of this encounter Visit Diagnoses Diagnosis Type 2 diabetes mellitus with diabetic polyneuropathy, with long-term current use of insulin ([facility]) documented in this encounter Additional Health Concerns Assessment Noted Time PHQ-9 Depression Total Score: 11 024 1:39 PM EDT documented as of this encounter Care Teams Shopper'S Aide Relationship Specialty Start Date End Date Patito Wilhelm MD [address] [place] [address] PCP - General Family Medicine 11/13/18 Wilber Christie, PharmD [address] [place] [address] Pharmacist Internal Medicine 01/28/23 documented as of this encounter
--- OUTSIDE RECORDS SUMMARY | 2024-07-12 14:13 | XMS_ITS | Encounter Summary ---
Author Organization [employer] Address [address] [facility] [address] [place] [address] Care Team Providers Care Rapier Insertion Loom Fixer Name Role Phone Patito Wilhelm MD Primary Care Provider [phone] Wilber Christie PharmD Unavailable [phone] Reason for Visit * Reason Onset Date Comments Med Refill 02/07/2023 Encounter Details Date Type Department Care Team (Late st Contact Info) Description 02/07/2023 Telephone [facility] [address] [place], [place] [phone] Patito Wilhelm MD [address] [place], [place] [phone] Med Refill Social History Tobacco Use Types [...] encounter Miscellaneous Notes * Telephone Encounter - Marla Brown - 02/07/2023 4:04 PM EDT Tc from pt requesting med refill on oxyCODONE-acetaminophen (Percocet) 5-325 MG tablet documented in this encounter Plan of Treatment Upcoming Encounters Date Type Department Care Team (Late st Contact Info) Description 08/01/2024 2:00 PM EDT Medication Management [facility] [address] [place] [address] Wilber Christie, PharmD [address] [place] [address] 09/11/2024 11:00 AM EDT Office Visit [facility] [address] [place] [address] 10/12/2024 2:30 PM EDT Office Visit [facility] [address] [place] [address] Atif, Jessica, OD [address] [place] [address] documented as of this encounter Goals Goal [...] documented as of this encounter Care Teams Rapier Insertion Loom Fixer Relationship Specialty Start Date End Date Patito Wilhelm MD [address] [place] [address] PCP - General Family Medicine 11/13/18 Wilber Christie, PennyD [address] [place] [address] Pharmacist Internal Medicine 01/28/23 documented as of this encounter
--- OUTSIDE RECORDS SUMMARY | 2024-07-12 14:13 | XMS_ITS | Encounter Summary ---
Author Organization [employer] Address [address] [place] [address] [address] [place] [address] Care Team Providers Care Triage Rn Name Role Phone Patito Wilhelm MD Primary Care Provider [phone] Wilber Christie PharmD Unavailable Reason for Visit * Reason Onset Date Comments triage 06/22/2022 Encounter Details Date Type Department Care Team (Late st Contact Info) Description 06/22/2022 Telephone [facility] [address] [place], [place] [phone] Patito Wilhelm MD [address] [place], [place] [phone] triage Social History Tobacco Use Types Packs/Day Years Used Date Smoking Tobacco: Never Passive Smoke Exposure: Never Smokeless Tobacco: Never Comments Unknown Sex and Gender Information Value Date Recorded Sex Assigned at Female 02/15/2022 10:16 AM EDT Legal Sex Female 10:16 AM EDT Gender Identity Female 02/15/2022 10:16 AM EDT Sexual Orientation Straight 02/15/2022 10 :16 AM EDT COVID-19 Exposure Response Date Recorded In the last 10 days, have yo u been in contact with someone who was confirmed or suspected to have Coronavirus/COVID-19? No / Unsure 06/18/2022 1:13 PM EST documented as of this encounter Miscellaneous Notes * Telephone Encounter - Patito Wilhelm MD - 06/23/2022 10:02 AM EST Referral to PT completed * Telephone Encounter - Maite Quintana RN - 06/22/2022 4:21 PM EST Call to [facility] Tejada, per pt continues to have dizziness. Using Meclizine but only BID not TID asordered. Per pt no vomiting. Pt advised PCP plan was to refer to PT for vestibular exercises if no improvement. Pt also advised since sx persist after starting meds and no appts on teams pt to seek WIC. Reviewed ER precautions as well. Pt agrees. Sent to PCP and team to follow up on PT referral. Protocol Used: Dizziness (Adult) Protocol-Based Disposition: See in Office or Video Visit Today Positive Triage Question: * Moderate dizziness (e.g., interferes with normal activities) (Exception: dizziness caused by heatexposure, sudden standing, or poor fluid intake) * All higher-acuity triage questions were negative Care Advice Discussed: * Reassurance and Education - Dizziness From Standing * Sit Up Slowly Before Standing * Drink Fluids * Lie Down and Rest * Cool Off * Prevention * Reasons To Call Back - Passes out (faints). - You become worse. * Telephone Encounter - John Jaime - 06/22/2022 3:54 PM EST Symptom: Medication Question Outcome: Schedule an urgent appointment (within 4 hours) or talk to a nurse or provider soon Reason: New prescription question The caller accepted this outcome. documented in this encounter Plan of Treatment Upcoming Encounters Date Type Department Care Team (Late st Contact Info) Description 08/01/2024 2:00 PM EDT Medication Management [facility] [address] [place] [phone] Wilber Christie, PharmD [address] [place] [address] 09/11/2024 11:00 AM EDT Office Visit [facility] [address] [place] [phone] 10/12/2024 2:30 PM EDT Office Visit [facility] OPT[facility] [address] [place], [place] [phone] Jessica Srivastava, NIKKY [address] [place] [address] documented as of this encounter Visit Diagnoses Not on filedocumented in this encounter Care Teams Triage Rn Relationship Specialty Start Date End Date Patito Wilhelm MD [address] [place] [phone] PCP - General Family Medicine 11/13/18 Wilber Christie, PennyD [address] [place] [phone] Pharmacist Internal Medicine 01/28/23 documented as of this encounter
--- OUTSIDE RECORDS SUMMARY | 2024-07-12 14:13 | XMS_ITS | Encounter Summary ---
Author Organization [employer] [facility] Address [address] [place] [address], [place] [address] Care Team Providers Care Composition Professor Name Role Phone Patito Wilhelm MD Primary Care Provider [phone] Wilber Christie PharmD Unavailable [phone] Reason for Visit * Reason Comments Med Refill Encounter Details Date Type Department Care Team (Late Contact Info) Description 01/13/2023 Refill [facility] [address] [place] [address] Ashley Goodman MD [address] [place], [place] [phone] Chronic right shoulder pain Social History Tobacco Use Types Packs/Day Years Used Date Smoking Tobacco: Never Passive Smoke Exposure: Never Smokeless Tobacco: Never Depression Answer Date Recorded Patient Health Questionnaire-9 Score 6 07/26/2022 Depression Answer Date Recorded Patient Health Questionnaire-2 [...] Encounters Date Type Department Care Team (Late Contact Info) Description 08/01/2024 2:00 PM EDT Medication Management [facility] [address] [place] [address] Wilber Christie, PharmD [address] [place] [address] 09/11/2024 11:00 AM EDT Office Visit [facility] [address] [place] [address] 10/12/2024 2:30 PM EDT Office Visit [facility] [address] [place], [place] [phone] Jessica Srivastava, OD [address] [place] [address] documented as of this encounter Visit Diagnoses Diagnosis Chronic right shoulder pain Pain in joint, shoulder region documented in this encounter Additional Health Concerns Assessment Noted Time PHQ-9 Depression Total Score: 6 07/27/19 23 1:10 PM EDT documented as of this encounter Care Teams Composition Professor Relationship Specialty Start Date End Date Patito Wilhelm MD [address] [place] [phone] PCP - General Family Medicine 11/13/18 Wilber Christie, ePnnyD [address] [place] [phone] Pharmacist Internal Medicine 01/28/23 documented as of this encounter
--- OUTSIDE RECORDS SUMMARY | 2024-07-12 14:13 | XMS_ITS | Clinical Summary ---
Author Organization [email or web address] Address [address] [place] [address] [address] [place] [address] Care Team Providers Care Ethanol Operations Manager Name Role Phone Patito Givens MD Primary Care Provider [phone] Wilber Christie PharmD Unavailable [phone] Allergies Active Allergy Reactions Criticality Noted Date Comments Aspirin Unknown 04/01/2010 Azithromycin Unknown,Anaphylaxis High 09/20/2013 Cyclobenzaprine Rash,Unknown,Hives High 12/10/2016 Glipizide Unknown 09/20/2013 Latex Rash High 01/05/2022 Levofloxacin Swelling,Other 11/15/2012 Rosiglitazone Other,Rash High 06/06/2021 Other reaction(s): Unknown Other reaction(s): Unknown Other reaction(s): Unknown Medications dicyclomine (Bentyl) 10 MG capsule TAKE 1 OR 2 CAPSULES EVERY 6 HOURS NEEDED FOR ABDOMINAL CRAMPS/DIARRHEA 022 Active naloxone (Narcan) 4 mg/0.1 mL nasal spray PLEASE SEE ATTACHED FOR DETAILED DIRECTIONS 022 Active omeprazole (PriLOSEC) [address] capsule TAKE 1 CAPSULE BY MOUTH EVERY DAY IN THE MORNING 022 Active nitroglycerin (Nitrostat) 0.4 MG SL tabletIndications: Chest pain, unspecified type TAKE 1 TABLET BY SUBLINGUAL ROUTE ONCE NEEDED CHEST PAIN. IF NO RELIEF, GO TO ER OR CALL 911. 25 tablet 023 Active albuterol (2.5 MG/3ML) 0.083% nebulizer solution TAKE 3 ML WITH NEBULIZER EVERY 6 HOURS Active budesonide-formote rol (Symbicort) 160-4.5 MCG/ACT inhaler Inhale 2 puffs in the morning and at bedtime. Active DULoxetine (Cymbalta) [address] capsule TAKE 1 CAPSULE BY MOUTH EVERY DAY 90 capsule 3 Active rosuvastatin (Crestor) 20 MG tabletIndications: Type 2 diabetes mellitus with diabetic polyneuropathy, with long-term current use of insulin (CMS/[facility]) Take 1 tablet by mouth once daily 90 tablet 1 024 Active Alcohol Swabs (Alcohol Prep Pads) 70 % padsIndications:Ty pe 2 diabetes mellitus with diabetic polyneuropathy, with long-term current use of insulin (CMS/[facility]) Apply 1 Pad topically 2 times daily. 100 each 5 Active celecoxib (CeleBREX) 200 MG capsule TAKE 1 CAPSULE ORALLY EVERY 12 HOURS NEEDED FOR PAIN Active montelukast (Singulair) 10 MG tabletIndications: Moderate persistent asthma without complication Take 1 tablet (10 mg) by mouth in the morning. 90 tablet 3 024 Active B Complex Vitamins (vitamin B complex) tablet Take 1 tablet by mouth 2 times daily. 180 tablet 3 024 Active cholecalciferol VITAMIN D (Vitamin D-3) 50 MCG (2000 UT) capsule Take 1 capsule (50 mcg) by mouth Once per day. 90 capsule 3 024 Active meclizine (Antivert) 25 MG tabletIndications: BPPV (benign paroxysmal positional vertigo), unspecified laterality Take 1 tablet (25 mg) by mouth if needed in the morning, at noon, and at bedtime for dizziness or nausea. 30 tablet Active cetirizine (ZyrTEC) 10 MG tablet TAKE 1 TABLET BY MOUTH EVERY DAY IN THE MORNING 90 tablet 3 024 Active valsartan-hydroCHL OROthiazide (Diovan-HCT) 320-25 MG tablet Take 1 tablet by mouth Once per day. 024 02/06 Active Semaglutide, 2 MG/DOSE, (Ozempic, 2 MG/DOSE,) 8 MG/3ML solution pen-injectorIndica tions:Type 2 diabetes mellitus with both eyes affected by mild nonproliferative retinopathy without macular edema, with long-term current use of insulin ([facility]) Inject 0.75 mL (2 mg) under the skin 1 (one) time per week. 3 mL Active azelastine (Astelin) 0.1 % nasal spray Administer 1 spray into each nostril 2 times daily. Use in each nostril as directed 30 mL 03/27 Active albuterol (Ventolin HFA) 108 (90 Base) MCG/ACT inhaler TAKE 2 PUFFS BY MOUTH EVERY 4 TO 6 HOURS NEEDED 18 g 1 Active FreeStyle lancets 1 each by Other route 3 times daily. Check blood glucose 100 each Active glucose blood (FREESTYLE LITE) test stripIndications:T ype 2 diabetes mellitus with both eyes affected by mild nonproliferative retinopathy without macular edema, with long-term current use of insulin (CMS/[facility]) Check blood glucose 3 times daily and as needed 100 each Active pregabalin (Lyrica) 75 MG capsuleIndications :Meralgia paresthetica, left Take 1 capsule by mouth, two times every day. 60 capsule 1 025 Active guaiFENesin (Mucinex) 600 MG 12 hr tabletIndications: Bronchitis 1 tab twice daily as needed for cough/phlegm. Do not crush, chew, or split. 60 tablet 025 Active metoprolol succinate XL (Toprol XL) 50 MG 24 hr tabletIndications: Primary hypertension Take 1 tablet (50 mg) by mouth Once per day. Do not crush or chew. 90 tablet 3 025 Active insulin aspart protamine-insulin aspart (NovoLOG MIX 70/30 FLEXPEN) (70-30) 100 UNIT/ML injectionIndicatio ns:Type 2 diabetes mellitus with both eyes affected by mild nonproliferative retinopathy without macular edema, with long-term current use of insulin (CMS/HCC) INJECT 25 UNITS subcutaneously TWICE DAILY 15 mL 025 Active insulin pen needle (B-D ULTRAFINE III SHORT PEN) 31G X 8 mm misc USE DIRECTED 3 TIMES A DAY 100 each 5 025 Active oxyCODONE-acetamin ophen (Percocet) 5-325 MG tabletIndications: Chronic back pain, unspecified back location, unspecified back pain laterality Take 1 tablet by mouth every 12 (twelve) hours if needed for severe pain for up to 28 days. Do not start before July 16, 2024. 56 tablet 025 08/13 Active insulin pen needle (B-D ULTRAFINE III SHORT PEN) 31G X 8 mm misc USE DIRECTED 3 TIMES A DAY 100 each 5 025 07/06 Discontinued( Reorder (will not trigger notification to Pharmacy)) oxyCODONE-acetamin ophen (Percocet) 5-325 MG tabletIndications: Chronic back pain, unspecified back location, unspecified back pain laterality Take 1 tablet by mouth every 12 (twelve) hours if needed for severe pain for up to 28 days. 56 tablet 025 06/13 Discontinued( Reorder (will not trigger notification to Pharmacy)) insulin aspart protamine-insulin aspart (NovoLOG MIX 70/30 FLEXPEN) (70-30) 100 UNIT/ML injectionIndicatio ns:Type 2 diabetes mellitus with both eyes affected by mild nonproliferative retinopathy without macular edema, with long-term current use of insulin ([facility]) INJECT 25 UNITS subcutaneously TWICE DAILY 15 mL 11 025 07/06 Discontinued( Reorder (will not trigger notification to Pharmacy)) oxyCODONE-acetamin ophen (Percocet) 5-325 MG tabletIndications: Chronic back pain, unspecified back location, unspecified back pain laterality Take 1 tablet by mouth every 12 (twelve) hours if needed for severe pain for up to 28 days. Do not start before June 15, 2024. 56 tablet 025 07/11 Discontinued( Reorder (will not trigger notification to Pharmacy)) Active Problems Problem Noted Date Diagnosed Date Long-term current use of opiate analgesic 2024 Generalized abdominal pain 03/27/2024 Assessment & Plan (03/27/2024 4:38 PM EST): - mostly in right lower quadrant pain. Pt associates pain with reported hernia. Last CT in August 2022 showed lower midline anterior abdominal hernia containing fat. - will evaluate with CT. Right foot pain 03/27/2024 Assessment & Plan (03/27/2024 4:03 PM EST): Pt perceives pain is from neuropathy. Both concerned about increasing Lyrica to 100 mg BID, due to experiencing drowsiness in the past. - will evaluate with XRs - will consider increasing Lyrica if XR without abnormalities. Allergic rhinitis 03/27/2024 Assessment & Plan (03/27/2024 4:03 PM EST): - continue azelastine (Astelin) 0.1 % nasal spray Fibromyalgia 12/12/2023 Assessment & Plan (12/12/2023 4:54 AM EDT): - continue duloxetine and pregabalin Diverticular disease of colon 12/12/2023 Hepatic fibrosis 09/14/2023 Sleep disturbance 08/30/2023 Assessment & Plan (08/30/2023 5:34 PM EDT): - will order sleep study Impingement of right shoulder 07/25/2023 Benign paroxysmal positional vertigo 07/25/2023 Assessment & Plan (12/12/2023 4:58 AM EDT): - continue judicious use of meclizine for symptoms of BPPV - reviewed signs and symptoms to contact for further evaluation of dizziness Lumbosacral radiculopathy 06/01/2023 Assessment & Plan (12/12/2023 4:47 AM EDT): -Seen by hand painter on 03/30/23 -Received lumbar facet block bilateral on 04/28/22 -Received DEE L5-S1 on 04/19/23 -Continue judicious use of oxycodone-APAP and pregabalin -Continue topical diclofenac Assessment & Plan (12/12/2023 4:55 AM EDT): >>ASSESSMENT AND PLAN FOR LUMBOSACRAL RADICULOPATHY WRITTEN ON 06/04/2023 5:53 AM BY PATITO GIVENS MD -Seen by hand painter on 03/30/23 -Received lumbar facet block bilateral on 04/28/22 -Received DEE L5-S1 on 04/19/23 -Continue judicious use of oxycodone-APAP and pregabalin -Continue topical diclofenac >>ASSESSMENT AND PLAN FOR LUMBAR RADICULOPATHY WRITTEN ON 06/02/2023 9:43 AM BY LINDA WOODS XXX Seasonal allergies 05/03/2023 Assessment & Plan (12/12/2023 4:57 AM EDT): - continue cetirizine and montelukast Gastroesophageal reflux disease 05/03/2023 Disorder of sacroiliac joint 05/03/2023 Overweight 01/10/2023 Assessment & Plan (06/04/2023 6:11 AM EST): - lifestyle modification - patient is on dulaglutide for diabetes Dyslipidemia 01/10/2023 Assessment & Plan (03/27/2024 3:58 PM EST): - last lipid profile: 12/09/22 TC 207; TG 100; HDL 51; LDL 136 - current medication: Atorvastatin 10 mg at bedtime, consider increasing as tolerated - continue working on lifestyle modification Assessment & Plan (12/06/2023 1:46 PM EDT): - last lipid profile: 12/09/22 TC 207; TG 100; HDL 51; LDL 136 - current medication: Atorvastatin 10 mg at bedtime, consider increasing as tolerated - continue working on lifestyle modification Assessment & Plan (08/30/2023 2:41 PM EDT): - last lipid profile: 12/09/22 TC 207; TG 100; HDL 51; LDL 136 - current medication: Atorvastatin 10 mg at bedtime, consider increasing as tolerated - continue working on lifestyle modification Assessment & Plan (04/02/2023 6:10 AM EST): - last lipid profile: 12/09/22 TC 207; TG 100; HDL 51; LDL 136 - current medication: Atorvastatin 10 mg at bedtime, consider increasing as tolerated - continue working on lifestyle modification Assessment & Plan (01/10/2023 5:48 PM EDT): - last lipid profile: 12/09/22 TC 207; TG 100; HDL 51; LDL 136 - current medication: Atorvastatin 10 mg at bedtime - continue working on lifestyle modification Right shoulder pain 12/13/2022 Assessment & Plan (06/04/2023 6:00 AM EST): - s/p right rotator cuff repair in 2004 -Scheduled for Arthroscopy 06/24/2023 Assessment & Plan (01/10/2023 5:45 PM EDT): - s/p right rotator cuff repair in 2004 - Seen by Orthopedist on 12/21/22 - MRI ordered - f/u with Orthopedist after MRI is completed Assessment & Plan (12/13/2022 8:24 PM EDT): Reports chronic right shoulder pain -had surgery for it in years ago and despite surgery had pain that can be at rest but worsen with movement. Denies having swelling nor increase skin temp in joint .denies fever nor chills Hx of shoulder qx in 2004 -Right shoulder MRI 2020: rotator cuff repair sequela with residual rotator cuff tendinopathy and partial tear,degenerative changes in the acromioclavicular joint,superior glenoid labrum and biceps tendon -referred today to orthopedic -tylenol prn mild pain -pt on percocet prn for mod pain -px diclofenac topical and to use NSAIDS oral for more intense pain -reports Lidoderm patch gave skin rash so will hold on px History of hepatitis C 11/05/2022 Assessment & Plan (08/30/2023 2:37 PM EDT): - Received pegylated interferon and ribavirin - Treated with ledipasvir / sofosbuvir (Ollie) by Dr. Stratton in 2014 - Cured Assessment & Plan (04/02/2023 6:04 AM EST): - Received pegylated interferon and ribavirin - Treated with ledipasvir / sofosbuvir (Ollie) by Dr. Stratton in 2015 - Cured Gallbladder sludge 11/05/2022 Current use of insulin 08/09/2022 Macromastia 07/26/2022 Assessment & Plan (04/02/2023 6:09 AM EST): -Pt suffering from recurrent herlinda infection under breasts and chronic neck/upper back and shoulder pain -evaluated for reduction in the past, but at the time, her DM was not controlled -at this time DM are controlled -referred to plastic surgery, but pt needs to have physical therapy for back and neck pain prior to evaluation - referred to PT and pt has been attending, still painful Assessment & Plan (01/10/2023 5:41 PM EDT): -Pt suffering from recurrent herlinda infection under breasts and chronic neck/upper back and shoulder pain -evaluated for reduction in the past, but at the time, her DM was not controlled -at this time DM are controlled -referred to plastic surgery, but pt needs to have physical therapy for back and neck pain prior to evaluation - referred to PT Assessment & Plan (12/26/2022 5:37 AM EDT): -Pt suffering from recurrent herlinda infection under breasts and chronic neck/upper back and shoulder pain -evaluated for reduction in the past, but at the time, her DM was not controlled -at this time DM are controlled -referred to plastic surgery, but pt needs to have physical therapy for back and neck pain prior to evaluation - refer to PT Assessment & Plan (07/26/2022 1:50 PM EDT): -Pt suffering from recurrent herlinda infection under breasts and chronic neck/upper back and shoulder pain -evaluated for reduction in the past, but at the time, her DM was not controlled -at this time DM are controlled -will refer to Plastic Surgery Bilateral hip pain 07/26/2022 Assessment & Plan (12/26/2022 5:32 AM EDT): - pt has chronic knee pain, possibly referred pain component as well - most likely trochanteric bursitis - evaluate with X-ray - encouraged to try exercise for hip pain. - refer to PT Assessment & Plan (08/09/2022 5:25 AM EDT): - pt has chronic knee pain, possibly referred pain component as well - most likely trochanteric bursitis - encouraged to try exercise for hip pain. Foot mass, left 05/14/2022 Assessment & Plan (05/14/2022 5:36 PM EST): - subcutaneous, plantar - s/p excisional biopsy by Dr. 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 Right lower quadrant pain 05/14/2022 Overview (05/14/2022): - check lab - evaluate with CT scan - optimize Tx with dicyclomine Gallbladder disease 05/09/2022 Meralgia paresthetica 05/09/2022 Assessment & Plan (04/02/2023 6:09 AM EST): -followed by pain management Assessment & Plan (05/14/2022 4:47 PM EST): -followed by pain management -pt is now having similar sxs on her right thigh Recurrent major depressive episodes, moderate Assessment & Plan (12/12/2023 4:53 AM EDT): - patient has been on duloexetine (Cymbalta) for chronic pain and depression - continue discussion about engagement with behavioral health service (patient has been hesitant) Assessment & Plan (06/04/2023 6:10 AM EST): - patient has been on duloexetine (Cymbalta) for chronic pain and depression - continue discussion about engagement with behavioral health service (patient has been hesitant) Insomnia 02/24/2018 Irritable bowel syndrome 05/04/2017 Assessment & Plan (12/12/2023 4:55 AM EDT): - Followed by GI, last appt in October 2023 - Prescribed dicyclomine - Continue as prescribed Assessment & Plan (08/30/2023 2:37 PM EDT): - Followed by [facility], last appt in July 2022 - Prescribed dicyclomine - Continue as prescribed Assessment & Plan (04/02/2023 5:59 AM EST): - Followed by [facility], last appt in July 2022 - Prescribed dicyclomine - Continue as prescribed Assessment & Plan (08/09/2022 5:24 AM EDT): - Followed by [facility], last appt in July 2022 - Prescribed dicyclomine - Continue as prescribed Trochanteric bursitis of right hip 02/09/2017 Assessment & Plan (08/09/2022 5:26 AM EDT): - recommended to check with hand painter if she can receive steroid injection Chronic interstitial cystitis 08/14/2012 Assessment & Plan (08/30/2023 2:38 PM EDT): -Followed by urologist [facility], last seen on 02/22/22 -Prescribed tamsulosin, no longer taking Assessment & Plan (04/02/2023 6:05 AM EST): -Followed by urologist [facility], last seen on 02/22/22 -Prescribed tamsulosin, no longer taking Assessment & Plan (05/14/2022 5:02 PM EST): -Followed by urologist [facility], last seen on 02/22/22 -Prescribed tamsulosin Chronic low back pain 08/14/2012 Assessment & Plan (12/12/2023 4:52 AM EDT): -Seen by hand painter on 02/11/23 -Received lumbar facet block bilateral on 04/28/22 -Received DEE L5-S1 on 04/19/23 -Continue judicious use of oxycodone-APAP and pregabalin -Continue topical diclofenac -Continue following with hand painter -Encouraged to continue PT Assessment & Plan (08/30/2023 2:41 PM EDT): -Seen by hand painter on 02/11/23 -Received lumbar facet block bilateral on 04/28/22 -Received DEE L5-S1 on 04/19/23 -Continue judicious use of oxycodone-APAP and pregabalin -Continue topical diclofenac -Continue following with hand painter -Encouraged to continue PT Assessment & Plan (06/04/2023 6:04 AM EST): -Seen by hand painter on 02/11/23 -Received lumbar facet block bilateral on 04/28/22 -Received DEE L5-S1 on 04/19/23 -Continue judicious use of oxycodone-APAP and pregabalin -Continue topical diclofenac -Continue following with hand painter -Encouraged to continue PT Assessment & Plan (04/02/2023 6:10 AM EST): -Seen by hand painter on 02/11/23 -Received lumbar facet block bilateral on 04/28/22 -Scheduled for DEE L5-S1 soon -Continue judicious use of oxycodone-APAP and pregabalin -Continue topical diclofenac Assessment & Plan (01/10/2023 5:38 PM EDT): -Seen by hand painter on 12/16/22, yet mainly for left knee pain -Received lumbar facet block bilateral on 04/28/22 -Continue judicious use of oxycodone-APAP and pregabalin -Continue topical diclofenac Assessment & Plan (12/26/2022 5:36 AM EDT): -Seen by hand painter on 02/04/22. -Received lumbar facet block bilateral on 04/28/22 Assessment & Plan (05/14/2022 5:00 PM EST): -Seen by hand painter on 02/04/22. -Received lumbar facet block bilateral on 04/28/22 Hypertension 11/25/2011 Assessment & Plan (03/27/2024 3:57 PM EST): -Goal BP < 140/90 per JNC-8 and < 130/80 per ACC/AHA guideline (Treatment threshold >= 130/80 ) -History of questionable medication adherence -In a setting of chronic pain -Co-managed with pharmacist, poker in, and kennel assistant -s/p 24-hour BP monitoring by nephrology; recommended sleep study and increased metoprolol -Continue checking home BP -Continue working on lifestyle modification -Continue metoprolol succinate 75 mg daily -Continue Valsartan to 320mg daily -Treatment Hx: lisinpril was discontinued due to cough;Losartan was self- discontinued due to dry mouth; amlodipine was self-discontinued due to dry mouth; metoprolol was increased by kennel assistant from 50 mg to 75 mg. Recently BP has been stable, so [employer] tapered Metoprolol down to 25 mg, but pt started to have palpitations and self increased back to 50 mg. Assessment & Plan (12/12/2023 4:46 AM EDT): -Goal BP < 140/90 per JNC-8 and < 130/80 per ACC/AHA guideline (Treatment threshold >= 130/80 ) -History of questionable medication adherence -In a setting of chronic pain -Co-managed with pharmacist, poker in, and kennel assistant -s/p 24-hour BP monitoring by nephrology; recommended sleep study and increased metoprolol -Continue checking home BP -Continue working on lifestyle modification -Continue metoprolol succinate 75 mg daily -Continue Valsartan to 320mg daily -Treatment Hx: lisinpril was discontinued due to cough;Losartan was self- discontinued due to dry mouth; amlodipine was self-discontinued due to dry mouth; metoprolol was increased by kennel assistant from 50 mg to 75 mg Assessment & Plan (08/30/2023 2:37 PM EDT): -Goal BP < 140/90 per JNC-8 and < 130/80 per ACC/AHA guideline (Treatment threshold >= 130/80 ) -Questionable medication adherence -Co-managed with pharmacist and poker in -Continue checking home BP -Continue working on lifestyle modification -Continue metoprolol succinate 50 mg daily -Continue Valsartan to 320mg daily -Treatment Hx: lisinpril was discontinued due to cough;Losartan was self- discontinued due to dry mouth; amlodipine was self-discontinued due to dry mouth -Follow up in 3 mo, sooner if any problem arises -Refer to nephrology for 24-hour BP monitoring Assessment & Plan (06/04/2023 5:59 AM EST): -Goal BP < 140/90 per JNC-8 and < 130/80 per ACC/AHA guideline (Treatment threshold >= 130/80 ) -Questionable medication adherence -Co-managed with pharmacist and poker in -Continue checking home BP -Continue working on lifestyle modification -Continue metoprolol succinate 50 mg daily -Continue Valsartan to 320mg daily -Treatment Hx: lisinpril was discontinued due to cough;Losartan was self- discontinued due to dry mouth; amlodipine was self-discontinued due to dry mouth -Follow up in 3 mo, sooner if any problem arises -Refer to nephrology for 24-hour BP monitoring Assessment & Plan (04/02/2023 5:58 AM EST): -Goal BP < 140/90 per JNC-8 and < 130/80 per ACC/AHA guideline (Treatment threshold >= 130/80 ) -Questionable medication adherence -Co-managed with pharmacist and poker in -Continue checking home BP -Continue working on lifestyle modification -Continue metoprolol succinate 50 mg daily -Continue Valsartan to 320mg daily -Treatment Hx: lisinpril was discontinued due to cough;Losartan was self- discontinued due to dry mouth; amlodipine was self-discontinued due to dry mouth -Follow up in 3 mo, sooner if any problem arises Assessment & Plan (01/10/2023 5:44 PM EDT): -Goal BP < 140/90 per JNC-8 and < 130/80 per ACC/AHA guideline (Treatment threshold >= 130/80 ) -Questionable medication adherence -Continue checking home BP -Continue working on lifestyle modification -Continue metoprolol succinate 50 mg daily -Increase Valsartan to 320mg daily -Treatment Hx: lisinpril was discontinued due to cough;Losartan was self- discontinued due to dry mouth; amlodipine was self-discontinued due to dry mouth -Follow up in 3 mo, sooner if any problem arises Assessment & Plan (12/26/2022 5:31 AM EDT): -Goal BP < 140/90 per JNC-8 and < 130/80 per ACC/AHA guideline (Treatment threshold >= 130/80 ) -Questionable medication adherence -Continue checking home BP -Continue working on lifestyle modification -Continue metoprolol succinate to 50 mg daily -Continue Volsartan 80mg daily -Treatment Hx: lisinpril was discontinued due to cough;Losartan was self- discontinued due to dry mouth; amlodipine was self-discontinued due to dry mouth and switched to valsartan -Follow up in 3 mo, sooner if any problem arises Assessment & Plan (12/13/2022 8:19 PM EDT): BP today is elevated at 156/84 Pt reports having several times at home as well BP in 150s -reports amlodipine caused SE for this was dced Denies CP,SOB ,MAYS ,etc -pt taking BB and valsartan both at night -pt here w pain that may exacerbate BP -advised pt to take valsartan in am and BB pm to see if that helps controlling BP better -advised to bring Home BP readings to PCP -to f w PCP in 4 weeks to monitor BP Assessment & Plan (08/09/2022 5:23 AM EDT): -Goal BP < 140/90 per JNC-8 and < 130/80 per ACC/AHA guideline (Treatment threshold >= 130/80 ) -Continue checking home BP -Continue working on lifestyle modification -Continue metoprolol succinate to 50 mg daily -Continue Volsartan 80mg daily -Treatment Hx: lisinpril was discontinued due to cough;Losartan was self- discontinued due to dry mouth; amlodipine was self-discontinued due to dry mouth and switched to valsartan -Follow up in 3 mo, sooner if any problem arises -CDTM referral done Assessment & Plan (05/14/2022 5:01 PM EST): -Goal BP < 140/90 per JNC-8 and < 130/80 per ACC/AHA guideline (Treatment threshold >= 130/80 ) -Continue checking home BP -Continue working on lifestyle modification -Increase metoprolol succinate to 50 mg daily -Continue Volsartan 80mg daily -Treatment Hx: lisinpril was discontinued due to cough;Losartan was self- discontinued due to dry mouth; amlodipine was self-discontinued due to dry mouth and switched to valsartan -Follow up in 3 mo, sooner if any problem arises -CDTM referral Asthma 09/20/2011 Assessment & Plan (03/27/2024 3:55 PM EST): -Followed by [facility] pulmonology, last seen on 03/28/23, switched mometasone / formoterol (Dulera) to budesonide / formoterol (Symbicort) -Questionable adherence to medications according to refill history, she is unaware of budesonide / formoterol (Symbicort) prescription -Reviewed her medications today and discussed about the importance of adherence; Advised to hot die picker her budesonide / formoterol (Symbicort) and get her lab done prior to next appointment with collating machine operator -Currently prescribed budesonide / formoterol (Symbicort) and tiotropium (Spiriva) as maintenance -Continue albuterol HFA prn as rescue -Treatment Hx: Previously on fluticasone (Flovent), which was changed to mometasone / formoterol (Dulera). Mometasone / formoterol (Dulera) was changed to budesonide / formoterol (Symbicort) most recently -Reviewed the importance of medication adherence and recommended to contact pharmacist and collating machine operator for clarification of currently prescribed inhalers. Assessment & Plan (12/06/2023 1:45 PM EDT): -Followed by [facility] pulmonology, last seen on 03/28/23, switched mometasone / formoterol (Dulera) to budesonide / formoterol (Symbicort) -Questionable adherence to medications according to refill history, she is unaware of budesonide / formoterol (Symbicort) prescription -Reviewed her medications today and discussed about the importance of adherence; Advised to hot die picker her budesonide / formoterol (Symbicort) and get her lab done prior to next appointment with collating machine operator -Currently prescribed budesonide / formoterol (Symbicort) and tiotropium (Spiriva) as maintenance -Continue albuterol HFA prn as rescue -Treatment Hx: Previously on fluticasone (Flovent), which was changed to mometasone / formoterol (Dulera). Mometasone / formoterol (Dulera) was changed to budesonide / formoterol (Symbicort) most recently -Reviewed the importance of medication adherence and recommended to contact pharmacist and collating machine operator for clarification of currently prescribed inhalers. Assessment & Plan (08/30/2023 2:37 PM EDT): -Followed by [facility] pulmonology, last seen on 03/28/23, switched mometasone / formoterol (Dulera) to budesonide / formoterol (Symbicort) -Questionable adherence to medications according to refill history, she is unaware of budesonide / formoterol (Symbicort) prescription -Reviewed her medications today and discussed about the importance of adherence; Advised to hot die picker her budesonide / formoterol (Symbicort) and get her lab done prior to next appointment with collating machine operator -Currently prescribed budesonide / formoterol (Symbicort) and tiotropium (Spiriva) as maintenance -Continue albuterol HFA prn as rescue -Treatment Hx: Previously on fluticasone (Flovent), which was changed to mometasone / formoterol (Dulera). Mometasone / formoterol (Dulera) was changed to budesonide / formoterol (Symbicort) most recently -Reviewed the importance of medication adherence and recommended to contact pharmacist and collating machine operator for clarification of currently prescribed inhalers. Assessment & Plan (06/04/2023 5:58 AM EST): -Followed by [facility] pulmonology, last seen on 03/28/23, switched mometasone / formoterol (Dulera) to budesonide / formoterol (Symbicort) -Questionable adherence to medications according to refill history, she is unaware of budesonide / formoterol (Symbicort) prescription -Reviewed her medications today and discussed about the importance of adherence; Advised to hot die picker her budesonide / formoterol (Symbicort) and get her lab done prior to next appointment with collating machine operator -Currently prescribed budesonide / formoterol (Symbicort) and tiotropium (Spiriva) as maintenance -Continue albuterol HFA prn as rescue -Treatment Hx: Previously on fluticasone (Flovent), which was changed to mometasone / formoterol (Dulera). Mometasone / formoterol (Dulera) was changed to budesonide / formoterol (Symbicort) most recently -Reviewed the importance of medication adherence and recommended to contact pharmacist and collating machine operator for clarification of currently prescribed inhalers. Assessment & Plan (04/02/2023 5:57 AM EST): -Followed by [facility] pulmonology, last seen on 11/30/21 -Questionable adherence to medications according to refill history -Reviewed her medications today and discussed about the importance of adherence -Continue mometasone / formoterol (Dulera) and tiotropium (Spiriva) as maintenance -Continue albuterol HFA prn as rescue -Urged to schedule appt with collating machine operator; pt verbalized understanding Assessment & Plan (01/10/2023 2:06 PM EDT): -Followed by [facility] pulmonology, last seen on 11/30/21 -Questionable adherence to medications according to refill history -Reviewed her medications today and discussed about the importance of adherence -Continue Dulera and Spiriva as maintenance -Continue albuterol HFA prn as rescue -Consider referring to MTM -Urged to schedule appt with collating machine operator; pt verbalized understanding Assessment & Plan (12/26/2022 5:30 AM EDT): -Followed by [facility] pulmonology, last seen on 11/30/21 -Questionable adherence to medications according to refill history -Reviewed her medications today and discussed about the importance of adherence -Continue Dulera and Spiriva as maintenance -Continue albuterol HFA prn as rescue -Consider referring to MTM -Urged to schedule appt with collating machine operator; pt verbalized understanding Assessment & Plan (08/09/2022 5:23 AM EDT): -Followed by [facility] pulmonology, last seen on 11/30/21 -Reviewed her medications today and discussed about the importance of adherence -Continue Dulera and Spiriva as maintenance - Continue albuterol HFA prn as rescue -Consider referring to [facility] Assessment & Plan (05/14/2022 4:42 PM EST): -Followed by [facility] pulmonology, last seen on 11/30/21 -Mild wheezing today -Pt is being prescribed Dulera and Spiriva as maintanance, but patient is uncertain and medication refill history suggests questionable adherence. -Consider referring to [facility] Type 2 diabetes mellitus 09/20/2011 Assessment & Plan (03/27/2024 3:58 PM EST): - HgbA1C 7.3% on 12/06/23 -A1c 7.1% 03/12/24 -Continue working on lifestyle modification. -Being prescribed Novolog 70/30 23 units qAM and 23 units qPM, yet questionable adherence -Continue Trulicity from 3.0 mg weekly -Previous Tx: metformin - discontinued when she had active Hep C per pt. -Check the satus of FreeStyle Rachael -Last eye exam: 06/18/22, no retinopathy -Last foot exam: 08/30/23 -Last microalbumin test: 12/09/22 UACR 8.8 Last lipid profile: 12/09/22 TC 207; TG 100; HDL 51 ;LDL 136 Last dental exam: Immunizations: up to date Assessment & Plan (12/06/2023 1:45 PM EDT): - HgbA1C 7.3% on 12/06/23 -Continue working on lifestyle modification. -Being prescribed Novolog 70/30 23 units qAM and 23 units qPM, yet questionable adherence -Continue Trulicity from 3.0 mg weekly -Previous Tx: metformin - discontinued when she had active Hep C per pt. -Check the satus of FreeStyle Rachael -Last eye exam: 06/18/22, no retinopathy -Last foot exam: 08/30/23 -Last microalbumin test: 12/09/22 UACR 8.8 Last lipid profile: 12/09/22 TC 207; TG 100; HDL 51 ;LDL 136 Last dental exam: Immunizations: up to date Assessment & Plan (08/30/2023 2:40 PM EDT): - HgbA1C 7.3% on 08/30/23 -Continue working on lifestyle modification. -Being prescribed Novolog 70/30 23 units qAM and 23 units qPM, yet questionable adherence -Continue Trulicity from 3.0 mg weekly -Previous Tx: metformin - discontinued when she had active Hep C per pt. -Check the satus of FreeStyle Rachael -Last eye exam: 06/18/22, no retinopathy -Last foot exam: 08/30/23 -Last microalbumin test: 12/09/22 UACR 8.8 Last lipid profile: 12/09/22 TC 207; TG 100; HDL 51 ;LDL 136 Last dental exam: Immunizations: up to date Assessment & Plan (06/04/2023 6:02 AM EST): - HgbA1C 8.2% on 06/02/23, worsened from 6.8%, questionable medication adherence. Patient also received steroid injection by pain management in Apr 2023. -Continue working on lifestyle modification. -Being prescribed Novolog 70/30 23 units qAM and 23 units qPM, yet questionable adherence -Continue Trulicity from 3.0 mg weekly -Previous Tx: metformin - discontinued when she had active Hep C per pt. -Check the satus of FreeStyle Rachael -Last eye exam: 06/18/22, no retinopathy -Last foot exam: 10/20/21 -Last microalbumin test: 12/09/22 UACR 8.8 Last lipid profile: 12/09/22 TC 207; TG 100; HDL 51 ;LDL 136 Last dental exam: Immunizations: up to date Assessment & Plan (04/02/2023 6:08 AM EST): - HgbA1C 6.8%, improving A1C, yet having hypoglycemia. -Continue working on lifestyle modification. -Being prescribed Novolog 70/30 23 units qAM and 23 units qPM, yet questionable adherence, and pt is still stating she has been taking. -Continue Trulicity from 3.0 mg weekly -Previous Tx: metformin - discontinued when she had active Hep C per pt. -Check the satus of FreeStyle Rachael -Last eye exam: 06/18/22, no retinopathy -Last foot exam: 10/20/21 -Last microalbumin test: 12/09/22 UACR 8.8 Last lipid profile: 12/09/22 TC 207; TG 100; HDL 51 ;LDL 136 Last dental exam: Immunizations: up to date Assessment & Plan (01/10/2023 5:35 PM EDT): - HgbA1C 7.1% on 12/06/22, improved from [...] active Hep C. -Check the satus of FreeStyle Rachael -Last eye exam: 06/18/22, no retinopathy -Last foot exam: 10/20/21 -Last microalbumin test: 12/09/22 UACR 8.8 Last lipid profile: 12/09/22 TC 207; TG 100; HDL 51 ;LDL 136 Last dental exam: Immunizations: up to date Assessment & Plan (12/26/2022 5:35 AM EDT): - HgbA1C 7.1% on 12/06/22, improved from [...] active Hep C. -Check the satus of FreeStyle Rachael -Last eye exam: 06/18/22, no retinopathy -Last foot exam: 10/20/21 -Last microalbumin test: 10/20/21 UACR 12 Last lipid profile: 10/20/21 TC 197; 142; HDL 64; LDL 108. Last dental exam: Immunizations: up to date Assessment & Plan (07/26/2022 1:45 PM EDT): - HgbA1C 7.5% on 07/26/22, increasing from 7.3% 05/10/22 -Continue working on lifestyle modification. -Being prescribed Novolog 70/30 24 units qAM and 23 units qPM, yet questionable adherence, and pt is still stating she has been taking. Continue checking with pt how many units she has been administering -Continue Trulicity from 3.0 mg weekly -Previous Tx: metformin - discontinued when she had active Hep C. -Check the satus of FreeStyle Rachael -Last eye exam: 06/18/22, no retinopathy -Last foot exam: 10/20/21 -Last microalbumin test: 10/20/21 UACR 12 Last lipid profile: 10/20/21 TC 197; 142; HDL 64; LDL 108. Last dental exam: Immunizations: up to date Assessment & Plan (05/14/2022 5:43 PM EST): - HgbA1C 7.3% today 05/10/22, stable, received steroid injection on 04/28/22. No hypoglycemia. -Continue working on lifestyle modification. -Being prescribed Novolog 70/30 24 units qAM and 23 units qPM, yet questionable adherence, and pt is still stating she has been taking. Continue checking with pt how many units she has been administering -Continue Trulicity from 3.0 mg weekly -Previous Tx: metformin - discontinued when she had active Hep C. -Check the satus of FreeStyle Rachael -Last eye exam: 05/14/21 at [facility] eye care, no retinopathy -Last foot exam: 10/20/21 -Last microalbumin test: 10/20/21 UACR 12 Last lipid profile: 10/20/21 TC 197; 142; HDL 64; LDL 108. Last dental exam: Immunizations: up to date Knee pain 09/20/2011 Assessment & Plan (06/02/2023 9:41 AM EST): - Following with [facility], last seen in Jan 2023 - XR on 12/16/22 showed : mild Osteoarthritis - Received intraarticular Euflexxa (hyaluronate derivative) Injection x 3 doses in 2022 - Continue current Tx plan per hand painter Assessment & Plan (04/02/2023 6:14 AM EST): - Following with [facility], last seen in Jan 2023 - XR on 12/16/22 showed : mild Osteoarthritis - Received intraarticular Euflexxa (hyaluronate derivative) Injection x 3 doses in 2022 - Continue current Tx plan per hand painter Assessment & Plan (01/10/2023 5:41 PM EDT): - Following with [facility], last seen on 12/16/22, started on Euflexxa injection - XR on 12/16/22 showed : mild Osteoarthritis - Currently receiving intraarticular Euflexxa (hyaluronate derivative) Injection - Continue current Tx plan per hand painter Resolved Problems Problem Noted Date Diagnosed Date Resolved Date Preop examination 06/02/2023 08/10/2023 Assessment & Plan (06/04/2023 6:07 AM EST): -Patient considered intermediate risk. -Procedure considered intermediate risk. -Patient has low-intermediate risk for cardiopulmonary complications. -As long as patient has good BG, BP and asthma control, pt should be able to proceed to arthroscopic procedure. -Insulin dose can be adjusted the night before. Acute exacerbation of severe persistent extrinsic asthma 02/09/2017 05/14/2022 Hepatitis C 09/20/2011 04/02/2023 Encounters Date Type Department Care Team Description 07/11/2024 Refill [facility] [address] [place], [place] [id number] Tosha Phillips RN Chronic back pain, unspecified back location, unspecified back pain laterality 07/11/2024 Telephone [facility] [address] [place] [address] Patito Givens MD Med Refill 07/06/2024 10:30 AM EDT Clinical Support [facility] [address] [place] [address] Tosha Phillips RN Chronic bilateral low back pain, unspecified whether sciatica present (Primary Dx); Long-term current use of opiate analgesic 07/06/2024 Orders Only [facility] [place] [address] Patito Givens MD 07/06/2024 Refill [facility] [address] [facility] [place] [address] Tosha Phillips, ANGELIQUE Type 2 diabetes mellitus with both eyes affected by mild nonproliferative retinopathy without macular edema, with long-term current use of insulin ([facility]) 07/06/2024 Telephone [facility] [address] [facility] [address] Tosha Phillips RN 07/06/2024 Travel 06/29/2024 Orders Only GENERIC EXTERNAL DATA DEPARTMENT Provider, Generic External Data 06/22/2024 Telephone [facility] [place] [address] Patito Givens MD Appointment Request 06/22/2024 Telephone [facility] [place] [address] Patito Givens MD No Show (Patient no show for Pre-op appt ) 06/13/2024 Refill [facility] [place] [address] Patito Givens MD Chronic back pain, unspecified back location, unspecified back pain laterality 06/11/2024 Travel 06/07/2024 Telephone [facility] [place] [address] Patito Givens MD Chart Prep 06/01/2024 11:45 AM EST Office Visit [facility] [place] [address] Adali Stovall ANP Moderate persistent asthma with exacerbation (Primary Dx); Bronchitis 06/01/2024 Travel 05/28/2024 Refill [facility] [place] [address] Patito Givens MD Meralgia paresthetica, left 05/25/2024 Telephone [facility] [address] Jennifer Bernal, ANGELIQUE Follow up (Pt sent to [facility] ED; currently in ED with testing in progress) 05/25/2024 Telephone [facility] [address] [facility] [place] [address] Rosie Thompson RN Plan of Care 05/25/2024 Telephone [facility] [address] [facility] [place] [address] Patito Givens MD Nurse Triage 05/18/2024 Refill [facility] [address] [place] [address] Patito Givens MD Chronic back pain, unspecified back location, unspecified back pain laterality 05/14/2024 Telephone [facility] [address] [facility] [place] [address] Patito Givens MD PRE-OP 05/10/2024 Telephone [facility] [address] [place] [address] Mary Lucio MA june recall 05/08/2024 Telephone [facility] [address] [place] [address] Patito Givens MD Results 04/23/2024 Refill [facility] [address] [facility] [place] [address] Patito Givens MD 04/23/2024 Refill [facility] [address] [facility] [place] [address] Patito Givens MD Chronic back pain, unspecified back location, unspecified back pain laterality from Last 3 Months Immunizations Name Administration Dates Next Due Influenza injectable quadriv alent IIV4 with preservative 02/24/2018 Influenza injectable quadriv alent preservative free 01/10/2023,01/05/2022,02/06/2021,01/16,02/12/2019,02/06/2017 Influenza, IIV3, injectable 03/08/2023,1 ,12/31/2020,01/16,01/23/2018,01/03/2014,01/28/2011 Influenza, seasonal, injecta ble, preservative free 03/12/2024 Pfizer Covid-19 Vaccine 12+ 03/21/2023,01/11/202 2 Pfizer Covid-19 Vaccine 12+ huey-sucrose (Long Cap) 09/25/2021 Pneumococcal Conjugate PCV 20 10/08/2022, 023 Pneumococcal Polysaccharide PPSV23 02/13/2002 TD (adult), 2 Lf tetanus tox oid, preservative free, adsorbed 01/14/2005 Tdap 01/26/2023,11/15/2012 Zoster, Recombinant 01/17/2020,05/18/2019 Family History Medical History Relation Name Comments Cancer Father Gastric Cancer Coronary artery disease Mother Relation Name Status Comments Father Mother Social History Tobacco Use Types Packs/Day Years [...] Orientation Straight 02/15/2022 10 :16 AM EDT Last Filed Vital Signs Vital Sign Reading Time Taken Comments Blood Pressure 138/74 06/11/2024 1:41 PM EST Pulse 84 06/11/2024 1:41 PM EST Temperature 36.6 ??C (97.8 ??F) 06/01/2024 11:[address] Respiratory Rate 14 06/01/2024 11:43 AM EST Oxygen Saturation 98% 06/01/2024 11:43 AM EST Inhaled Oxygen Concentration - - Weight 65.8 kg (145 lb) 06/01/2024 11:43 AM EST Height 152.4 cm (4' 11.99 ) 03/27/2024 3:[address] Body Mass Index 28.33 03/27/2024 3:25 PM EST Plan of Treatment Upcoming Encounters Date Type Department Care Team (Late st Contact Info) Description 08/01/2024 2:00 PM EDT Medication Management [facility] [address] [place] [address] Wilber Christie, PharmD [address] [place] [address] 09/11/2024 11:00 AM EDT Office Visit [facility] [address] [place] [address] 10/12/2024 2:30 PM EDT Office Visit [facility] [address] [place] [address] Jessica Srivastava, OD [address] [place] [address] Health Maintenance Due Date Last Done Comments CT Colonography 1965 FIT DNA/Cologuard 1965 FIT 1965 FOBT 1965 HIV Screening 1965 Sigmoidoscopy 1965 Hepatitis A Vaccines (1 of 2 - Risk 2-dose series) 1984 Pap Smear 1986 Cervical Cancer Screening 1995 HPV/Cotest 1995 Diabetes: Urine Protein Screening 12/10/2023 12/09/2022, 10/20/2021, 01/24/2020 COVID-19 Vaccine ( season) 2023 03/21/2023, 01/19/2022, 09/25/2021, Additional history exists Depression Monitoring (PHQ-9) 06/07/2024 12/06/2023, 12/06/2023 Eye Exam 06/26/2024 06/27/2023, 06/16, 06/27/2023, Additional history exists Diabetes: Foot Exam 08/29/2024 08/30/2023, 08/30/2023, 08/30/2023, Additional history exists Diabetes: Hemoglobin A1C 09/08/2024 025, 03/12/2024, 12/06/2023, Additional history exists Depression Screening 12/05/2024 12/06/2023, 12/06/19 Alcohol/Substance Use Screening 03/27/2025 03/27/2024 SDOH Screening 03/27/2025 03/27/2024 Tobacco Screening 06/01/2025 06/01/2024 Lipid Panel 07/06/2025 07/06/2024, 0807/2022, 10/20/2021, Additional history exists Mammogram 03/27/2026 03/27/2024, 1208/2022, 03/19/2022, Additional history exists DTaP/Tdap/Td Vaccines (3 - Td or Tdap) 01/26/2033 01/26/2023, 11/15/2012, 01/14/2005 Colonoscopy 10/18/2033 Colorectal Cancer Screening 10/18/2033 RSV Patients and Patients Aged 60 years or older (1 - 1-dose 75+ series) 2040 Zoster Vaccines Completed 01/17/2020, 05/18/2019 Pneumococcal Vaccine: 50+ Years Completed 10/08/2022, 05/10/2022, 02/13/2002 Influenza Vaccine Completed 03/12/2024, , 01/10/2023, Additional history exists HIB Vaccines Aged Out No longer eligi ble based on patient's age to complete this topic HPV Vaccines Aged Out No longer eligi ble based on patient's age to complete this topic Hepatitis B Vaccines Discontinued IPV Vaccines Aged Out No longer eligi ble based on patient's age to complete this topic Meningococcal Vaccine Aged Out No yaneli erwin eligible based on patient's age to complete this topic RSV under 20 months Aged Out No longe r eligible based on patient's age to complete this topic Rotavirus Vaccines Aged Out No longer eligible based on patient's age to complete this topic Goals Goal Patient Goal Type Associated Problems Recent Progress Patient-Stated? Author Blood Pressure < 140/90 Blood Pressure 138/74(2024 1:41 PM EST) No Wilber Christie PharmD Hemoglobin A1c < 7 Result Component 7.8( 2:13 PM EST) No Wilber Christie PharmD Procedures Procedure Name Priority Date/Time Associated Diagnosis Comments LIPID PANEL, STANDARD Routine 07/06/2024 11:02 AM EDT BASIC METABOLIC PANEL Routine 07/06/2024 11:02 AM EDT HEPATIC FUNCTION PANEL Routine 07/06/2024 11:02 AM EDT POCT VINICIO-14 URINE DRUG SCREEN Routine 07/06/2024 10:56 AM EDT Long-term current use of opiate analgesic Chronic bilateral low back pain, unspecified whether sciatica present BASIC METABOLIC PANEL, FASTING Routine 06/29/2024 9:42 AM EDT CBC Routine 06/29/2024 9:42 AM EDT GLUCOSE, WHOLE BLOOD Routine 06/29/2024 9:14 AM EDT POCT GLYCATED HEMOGLOBIN, TOTAL Routine 06/11/2024 2:13 PM EST Type 2 diabetes mellitus with both eyes affected by mild nonproliferative retinopathy without macular edema, with long-term current use of insulin ([facility]) BI MAMMOGRAM SCREENING TOMOSYNTHESIS BILATERAL Routine 03/27/2024 1:50 PM EST ALBUMIN, RANDOM URINE W/CREATININE Routine 12/09/2022 1:02 PM EDT Type 2 diabetes mellitus with diabetic polyneuropathy, with long-term current use of insulin ([facility]) from Last 3 Months or Most Recently Relevant to Health Maintenance Results * Hepatic Function Panel (07/06/2024 11:02 AM EDT) Bilirubin, Total 0.4 0.0 - 1.0 mg/dL [facility] Bilirubin, Direct 0.1 0.0 - 0.5 mg/dL [facility] Aspartate Amino Transferase 14 5 - 31 U/L [facility] Alanine Aminotransferase 11 0 - 31 U/L [facility] Total Protein 7.1 6.5 - 8.0 g/dL [facility] Albumin Level 4.0 3.5 - 5.0 g/dL [facility] Alkaline Phosphatase 75 39 - 117 U/L [facility] 07/06/2024 11:0 2 AM EDT 07/06/2024 1:13 PM EDT us Patito Givens MD LAB BLOOD ORDERABLES Final Resul t [facility] [address] [place] [phone] * (ABNORMAL) Lipid Panel, Standard (07/06/2024 11:02 AM EDT) Triglycerides 143 <150 mg/dL [facility] Comment:Desirable Triglyceri de: less than 150 mg/dLBorderline High Triglyceride 150-199 mg/dLHigh Triglyceride: 200-499 mg/dLVery High Triglyceride: greater than or equal to 5OO mg/dL Cholesterol 171 <200 mg/dL [facility] Comment:Desirable Cholestero l: less than 200 mg/dLBorderline High Cholesterol: 200-239 mg/dLHigh Cholesterol: greater than 239 mg/dL LDL Cholesterol Calculated 100(H) <100 mg/dL [facility] Comment:Desirable LDL: less than 100 mg/dLNear Optimal/Above Optimal LDL: 110- 129 mg/dLBorderline High LDL: 130-159 mg/dLHigh LDL: 160-189 mg/dLVery High LDL: greater than or equal to 190 mg/dL HDL Cholesterol 43 >40 mg/dL [facility] Comment:Desirable HDL: great er than 40 mg/dL Note: This HDL assay may give artificially low results in patients with liver disease. 07/06/2024 11:0 2 AM EDT 07/06/2024 1:13 PM EDT us Patito Givens MD LAB BLOOD ORDERABLES Final Resul t Performing Organization Address [facility] Co de Phone Number [facility] [address] [place] [phone] * (ABNORMAL) Basic Metabolic Panel (07/06/2024 11:02 AM EDT) Sodium 141 135 - 145 mmol/L [facility] Potassium 3.5 3.3 - 5.1 mmol/L [facility] Chloride 108 96 - 108 mmol/L [facility] Carbon Dioxide 26 22 - 29 mmol/L [facility] Anion Gap 11(L) 12 - 20 [facility] Urea Nitrogen (BUN) 11 9 - 16 mg/dL [facility] Creatinine, Serum 0.66 0.5 - 1.4 mg/dL [facility] Estimated Glomerular Filt Rate >60 [facility] Comment:Chronic Kidney Disea se: Estimated GFR < 60 mL/min/1.09w0Hveddp Kidney Disease: Estimated GFR < 15 mL/min/1.73m2 Glucose 100 60 - 115 mg/dL [facility] Calcium 8.9 8.4 - 10.2 mg/dL [facility] 07/06/2024 11:0 2 AM EDT 07/06/2024 1:13 PM EDT Patito Givens MD LAB BLOOD ORDERABLES Final Resul t [facility] [address] [place] [address] [phone] * POCT VINICIO-14 Urine Drug Screen (07/06/2024 10:56 AM EDT) Oxycodone Screen, Urine Positive Urine Urine specimen obtained by clean catch procedure / Unknown 07/06/2024 10:56 AM EDT Narrative Tosha Phillips RN - 07/06/2024 10:56 AM EDT .UTOX cup Lot#[id number] Exp. 12/05/25 Internal Pass Control Patito Givens MD POINT OF CARE TEST ENTER/EDIT OR DERABLES Final Result * (ABNORMAL) Basic Metabolic Panel, Fasting (06/29/2024 9:42 AM EDT) Sodium 144 135 - 145 mmol/L [facility] Potassium 3.9 3.3 - 5.1 mmol/L [facility] Chloride 112(H) 96 - 108 mmol/L [facility] Carbon Dioxide 25 22 - 29 mmol/L [facility] Anion Gap 11(L) 12 - 20 [facility] Urea Nitrogen (BUN) 10 9 - 16 mg/dL [facility] Creatinine, Serum 0.66 0.5 - 1.4 mg/dL [facility] Creatinine Clr Calc Pharmacy 77.6 [facility] Comment:Provided height and weight: 152.4 cm,65.771 kg.eGFR (calculated from the MDRD study equation) and eCrCl(calculated from the Cockcroft-Gault equation) are based ondifferent parameters and may not yield comparable results.If eCrCl result is absurd, please check patient'sheight/weight. Estimated Glomerular Filt Rate >60 [facility] Comment:Chronic Kidney Disea se: Estimated GFR < 60 mL/min/1.29m9Xqlymy Kidney Disease: Estimated GFR < 15 mL/min/1.73m2 Glucose Fasting 83 60 - 99 mg/dL [facility] Calcium 8.8 8.4 - 10.2 mg/dL [facility] 06/29/2024 9:42 AM EDT 06/29/2024 9:52 AM EDT us Generic External Data Provider LAB BLOOD ORDERAB LES Final Result Performing Organization Address City/[facility]/ZIP Co de Phone Number [facility] [address] [place] [phone] * (ABNORMAL) CBC (06/29/2024 9:42 AM EDT) White Blood Count 7.8 4.8 - 10.8 X10*3/uL [facility] Red Blood Count 3.57(L) 4.20 - 5.50 X10*6/uL [facility] Hemoglobin 11.3(L) 12.0 - 16.0 g/dl [facility] Hematocrit 32.7(L) 37.0 - 47.0 % [facility] Mean Corpuscular Volume 91.6 80.0 - 98.0 fL [facility] Mean Corpuscular Hemoglobin 31.7 27.0 - 33.0 pg [facility] Mean Corpuscular HGB Conc 34.6 31.0 - 35.0 g/dl [facility] Red Cell Distribution Width 13.6 11.0 - 16.0 % [facility] Platelet Count 225 160 - 400 X10*3/uL [facility] Mean Platelet Volume 11.5 9.4 - 12.3 fL [facility] NRBC Pct Auto 0.0 0.0 - 0.2 /100WBC [facility] NRBC Abs Auto 0.000 0.0 - 0.012 X10*3/uL [facility] 06/29/2024 9:42 AM EDT 06/29/2024 9:52 AM EDT us Generic External Data Provider LAB BLOOD ORDERAB LES Final Result Performing Organization Address City/[facility]/ZIP Co de Phone Number [facility] [address] [place] [phone] * Glucose, Whole Blood (06/29/2024 9:14 AM EDT) Glucose, Whole Blood 84 60 - 115 mg/dL [facility] Comment:METER #: [id number] 06/29/2024 9:14 AM EDT 06/29/2024 9:17 AM EDT us Generic External Data Provider LAB BLOOD ORDERAB LES Final Result [facility] [address] [place] [address] [phone] * (ABNORMAL) POCT HGB A1C (06/11/2024 2:13 PM EST) Hemoglobin A1C 7.8(A) 4.0 - 6.0 % QC Media Lot # [id number] Lot# Expiration Date Blood 06/11/2024 2:13 PM EST Patito Givens MD POINT OF CARE TEST ENTER/EDIT OR DERABLES Final Result * BI Mammogram Screening Tomosynthesis Bilateral (03/27/2024 1:50 PM EST) Anatomical Region Laterality Modality Breast Bilateral Mammography 03/27/2024 1:50 PM EST Narrative 04/02/2024 3:31 PM EST ? [facility] [place] ? [address] ?[place] [address] ? Mammography Report ? Signed ? Patient: Tejada,Ameena ?MR#: [id number] ?? 33 ? : 1965 ?Acct:[id number] ? Age/Sex: 59 / F ?ADM Date: 12/10/24 ? Loc: HO.MAMMO ? Attending Dr: Patito Givens MD ? Ordering Physician: Patito Givens MD ?Results: 2Benign F ?? indings ? Date of Service: 03/27/24 ?Follow Up: 1 Year From Orig ?? inal Mammogram ? Procedure(s): MM tomosynthesis screening BI ?? Accession Number(s): [id number] ? cc: Patito Givens MD ? EXAMINATION: ?? MM SCREENING DIGITAL BREAST TOMOSYNTHESIS, BILATERAL ? CLINICAL INFORMATION: ? Screening. Asymptomatic. ? COMPARISON: ?? Mammography: Comparison is made with available priors ? TECHNIQUE: ?? Digital breast mammography with tomosynthesis is performed in both the ?? craniocaudal and mediolateral oblique views along with computer-aided ?? detection (CAD). ? FINDINGS: ?? The breasts are heterogeneously dense, which may obscure small masses ?? (ACR BI-RADS breast composition Category c). ?? Bilateral scattered asymmetries are stable. ?? There are no significant masses, abnormal calcifications, or other ?? abnormalities. ? MM/MM tomosynthesis screening BI ?? IMPRESSION: ?? No mammographic evidence of malignancy. ? ASSESSMENT: ? BI-RADS BI-RADS 2 - Benign Findings ? RECOMMENDATION: ?? Routine annual mammography screening. ? 1 year F/U ? This examination should not preclude the clinical evaluation of a ?? suspicious palpable abnormality. ? This patient's information was entered into a reminder system with a ?? target due date for their next mammogram. ? Electronically signed by: ??Mare Cardona DO ??04/02/2024 03:28 PM EST ?? RP ? Dictated By: ?Mare Cardona DO ? Signed By: ?<Electronically signed by Mare Cardona, DO in OV> ? 04/02/24 1528 ? DD/ 1350 ? TD/TT: 03/27/24 1405 ? Continuous W[employer] Pipe Mill Supervisor: ? Procedure Note Donotuseinterpreter, Image - 04/02/2024 [place] [facility] [address] [place] [address] Mammography Report Signed Patient: King Tejada#: [id number] 33 : 1965Acct:[id number] Age/Sex: 59 / FADM Date: 03/27/24 Loc: HO.MAMMO Attending Dr: Patito Givens MD Ordering Physician: Patito Givens MDResults: 2Benign F indings Date of Service: 03/27/24Follow Up: 1 Year From Orig ina Mammogram Procedure(s): MM tomosynthesis screening BI Accession Number(s): [id number] cc: Patito Givens MD EXAMINATION: MM SCREENING DIGITAL BREAST TOMOSYNTHESIS, BILATERAL CLINICAL INFORMATION: Screening. Asymptomatic. COMPARISON: Mammography: Comparison is made with available priors TECHNIQUE: Digital breast mammography with tomosynthesis is performed in both the craniocaudal and mediolateral oblique views along with computer-aided detection (CAD). FINDINGS: The breasts are heterogeneously dense, which may obscure small masses (ACR BI-RADS breast composition Category c). Bilateral scattered asymmetries are stable. There are no significant masses, abnormal calcifications, or other abnormalities. MM/MM tomosynthesis screening BI IMPRESSION: No mammographic evidence of malignancy. ASSESSMENT: BI-RADS BI-RADS 2 - Benign Findings RECOMMENDATION: Routine annual mammography screening. 1 year F/U This examination should not preclude the clinical evaluation of a suspicious palpable abnormality. This patient's information was entered into a reminder system with a target due date for their next mammogram. Electronically signed by: Mare Cardona DO 04/02/2024 03:28 PM [facility] Dictated By: Mare Cardona DO Signed By: <Electronically signed by Mare Cardona DO in OV> 04/02/24 1528 DD/ 1350 TD/TT: 03/27/24 1405 Continuous [employer] Pipe Mill Supervisor: us Patito Givens MD IMG BI PROCEDURES Edited Result - Final * Albumin, Random Urine W/Creatinine (12/09/2022 1:02 PM EDT) Creatinine, Urine 170.12 mg/dL [facility] Microalbumin Urine 15.0 mg/L [facility] Microalbum Creatinine Ratio Ur 8.8 <30 ug/mg cr [facility] Comment:Albumin/Creatinine R atio Reference Ranges: Normal: < 30 ug/mg creatinine Microalbuminuria: 30 - 300 ug/mg creatinineClinical Albuminuria: > 300 ug/mg creatinine Urine 12/09/2022 1:02 PM EDT 12/09/2022 3:56 PM EDT us Patito Givens MD LAB URINE ORDERABLES Final Resul t [facility] [address] [place] [address] [phone] from Last 3 Months or Most Recently Relevant to Health Maintenance [place] [address] [place] [address] - [employer] Care Teams Ethanol Operations Manager Relationship Specialty Start Date End Date Patito Givens MD [address] [place] [address] PCP - General Family Medicine 11/13/18 Wilber Christie, PharmD [address] [place] [address] Pharmacist Internal Medicine 01/28/23
--- OUTSIDE RECORDS SUMMARY | 2024-07-12 14:14 | XMS_ITS | Encounter Summary ---
Author Organization [facility] Address [address] [place] [address] [address] [place] [address] Care Team Providers Care Spa Experience Coordinator Name Role Phone Patito Wilhelm MD Primary Care Provider [phone] Wilber Christie PharmD Unavailable [phone] Encounter Details Date Type Department Care Team ([facility] Contact Info) Description 09/01/2022 Telephone [facility] [address] [place] [phone] Emily Luu, ANGELIQUE Social History Tobacco Use Types Packs/Day Years [...] suspected to have Coronavirus/COVID-19? No / Unsure 08/10/2022 1:00 PM EDT documented as of this encounter Plan of Treatment Upcoming Encounters Date Type Department Care Team ([facility] Contact Info) Description 08/01/2024 2:00 PM EDT Medication Management [facility] [address] [place] [phone] Wilber Christie, PharmD [address] [place] [address] 09/11/2024 11:00 AM EDT Office Visit [facility] [address] [place] [address] 10/12/2024 2:30 PM EDT Office Visit [facility] [address] [place], [place] [phone] Jessica Srivastava, OD [address] [place] [address] documented as of this encounter Visit Diagnoses Not on filedocumented in this encounter Additional Health Concerns Assessment Noted Time PHQ-9 Depression Total Score: 6 07/27/19 23 1:10 PM EDT documented as of this encounter Care Teams Spa Experience Coordinator Relationship Specialty Start Date End Date Patito Wilhelm MD [address] [place] [address] PCP - General Family Medicine 11/13/18 Wilber Christie, PharmD [address] [place], [place] [phone] Pharmacist Internal Medicine 01/28/23 documented as of this encounter
--- OUTSIDE RECORDS SUMMARY | 2024-07-12 14:14 | XMS_ITS | Encounter Summary ---
Author Organization [employer] Address [address] [facility] 7t [place] [address] Care Team Providers Care Radio Repairman Name Role Phone Patito Wilhelm MD Primary Care Provider [phone] Wilber Christie PharmD Unavailable [phone] Reason for Visit * Reason Onset Date Comments Appointment Request 10/24/2023 Encounter Details Date Type Department Care Team ([facility] st Contact Info) Description 10/24/2023 Telephone [facility] [address] [place], [place] [phone] Patito Wilhelm MD [address] [place], [place] [phone] Appointment Request Social History Tobacco Use Types [...] * Telephone Encounter - Marla Brown - 10/24/2023 3:20 PM EDT Tc from pt requesting a 1 week follow up appt with PCP after colonoscopy. documented in this encounter Plan of Treatment Upcoming Encounters Date Type Department Care Team (Late st Contact Info) Description 08/01/2024 2:00 PM EDT Medication Management [facility] [address] [place] [address] Wilber Christie, Kaia [address] [place] [address] 09/11/2024 11:00 AM EDT Office Visit [facility] [address] [place] [address] 10/12/2024 2:30 PM EDT Office Visit [facility] OPTOMETRY [address] [place] [address] Atif, Jessica, OD [address] [place] [address] documented as of this encounter Goals Goal Patient Goal Type Associated Problems Recent Progress Patient-Stated? Author Blood Pressure < 140/90 Blood Pressure 138/74(2024 1:41 PM EST) No Wilber Christie, PharmKit Hemoglobin A1c < 7 Result Component 7.8( 2:13 PM EST) No Wilber Christie, PharmD documented as of this encounter Visit Diagnoses Not on filedocumented in this encounter Additional Health Concerns Assessment Noted Time PHQ-9 Depression Total Score: 6 07/27/19 23 1:10 PM EDT documented as of this encounter Care Teams Radio Repairman Relationship Specialty Start Date End Date Patito Wilhelm MD [address] [place] [address] PCP - General Family Medicine 11/13/18 Wilber Christie, PharmD [address] [place] [address] Pharmacist Internal Medicine 01/28/23 documented as of this encounter
--- OUTSIDE RECORDS SUMMARY | 2024-07-12 14:14 | XMS_ITS | Encounter Summary ---
Author Organization [facility] [facility] Address [address] [place] [address] 7 [place] [address] Care Team Providers Care Coater Associate Name Role Phone Patito Wilhelm MD Primary Care Provider [phone] Wilber Christie PharmD Unavailable [phone] Reason for Visit * Reason Comments Med Refill Encounter Details Date Type Department Care Team (Late Contact Info) Description 08/11/[address] [facility] [address] [place] [address] Racquel Fu MD [address] [place] [address] Social History Tobacco Use Types Packs/Day Years [...] 08/01/2024 2:00 PM EDT Medication Management [facility] [address] [place] [address] Wilber Christie, PharmD [address] [place] [address] 09/11/2024 11:00 AM EDT Office Visit [facility] [address] [place] [address] 10/12/2024 2:30 PM EDT Office Visit [facility] OPTOMET[facility] [address] [place], [place] [phone] Atif, Jessica, OD [address] [place] [address] documented as of this encounter Visit Diagnoses Not on filedocumented in this encounter Additional Health Concerns Assessment Noted Time PHQ-9 Depression Total Score: 6 07/27/19 23 1:10 PM EDT documented as of this encounter Care Teams Coater Associate Relationship Specialty Start Date End Date Patito Wilhelm MD [address] [place] [address] [phone] PCP - General Family Medicine 11/13/18 Wilber Christie, PharmD [address] [place] [address] [phone] Pharmacist Internal Medicine 01/28/23 documented as of this encounter
--- OUTSIDE RECORDS SUMMARY | 2024-07-12 14:14 | XMS_ITS | Encounter Summary ---
Author Organization [facility] [facility] Address [address] [place] [address] 7 [place] [address] Care Team Providers Care Railroad Car Painter Name Role Phone Patito Wilhelm MD Primary Care Provider [phone] Wilber Christie PharmD Unavailable [phone] Encounter Details Date Type Department Care Team (Latest Contact Info) Description 02/21/2019 Abstract [facility] CON[facility]S Dental, Provider, DDS Social History Tobacco Use Types Packs/Day Years Used Date Smoking Tobacco: Never Assessed Comments Unknown Sex and Gender Information Value [...] 2:00 PM EDT Medication Management [facility] [address] [place] [address] Wilber Christie, PharmD [address] [place] [address] 09/11/2024 11:00 AM EDT Office Visit [facility] [address] [place] [address] 10/12/2024 2:30 PM EDT Office Visit [facility] OPTOMETRY [address] [place] [phone] Jessica Srivastava, OD [address] [place] [phone] documented as of this encounter Visit Diagnoses Not on filedocumented in this encounter Care Teams Railroad Car Painter Relationship Specialty Start Date End Date Patito Wilhelm MD [address] [place] [address] [phone] PCP - General Family Medicine 11/13/18 Wilber Christie, PennyD [address] [place] [phone] Pharmacist Internal Medicine 01/28/23 documented as of this encounter
--- OUTSIDE RECORDS SUMMARY | 2024-07-12 14:14 | XMS_ITS | Encounter Summary ---
Author Organization [employer] Address [address] [facility] 7t [place] [address] Care Team Providers Care Mailing Jogger Name Role Phone Patito Wilhelm MD Primary Care Provider [phone] Wilber Christie PharmD Unavailable Reason for Visit * Reason Onset Date Comments Appointment Request 10/19/2023 Encounter Details Date Type Department Care Team ([facility] st Contact Info) Description 10/19/2023 Telephone [facility] [address] [place], [place] [phone] Patito Wilhelm MD [address] [place], [place] [phone] Appointment Request Social History Tobacco Use Types [...] encounter Miscellaneous Notes * Telephone Encounter - Riri Lucio - 10/19/2023 3:23 PM EDT Tc from pt states got a colonoscopy done today (11/14) and was advised by office to follow up in a week with PCP. Please contact pt at [phone] documented in this encounter Plan of Treatment Upcoming Encounters Date Type Department Care Team (Late st Contact Info) Description 08/01/2024 2:00 PM EDT Medication Management [facility] [address] [place] [address] Wilber Christie, PharmD [address] [place] [address] 09/11/2024 11:00 AM EDT Office Visit [facility] [address] [place] [address] 10/12/2024 2:30 PM EDT Office Visit [facility] OPTOMETRY [address] [place] [address] Jessica Srivastava, OD [address] [place] [address] documented as of this encounter Goals Goal Patient Goal Type Associated Problems Recent Progress Patient-Stated? Author Blood Pressure < 140/90 Blood Pressure 138/74(2024 1:41 PM EST) No Wliber Christie, PharmD Hemoglobin A1c < 7 Result Component 7.8( 5 2:13 PM EST) No Wilber Christie, PharmKit documented as of this encounter Visit Diagnoses Not on filedocumented in this encounter Additional Health Concerns Assessment Noted Time PHQ-9 Depression Total Score: 6 07/27/19 23 1:10 PM EDT documented as of this encounter Care Teams Mailing Jogger Relationship Specialty Start Date End Date Patito Wilhelm MD [address] [place] [address] PCP - General Family Medicine 11/13/18 Wilber Christie, PharmD [address] [place] [address] Pharmacist Internal Medicine 01/28/23 documented as of this encounter
--- OUTSIDE RECORDS SUMMARY | 2024-07-12 14:14 | XMS_ITS | Encounter Summary ---
Author Organization [employer] [facility] Address [address] [place] [address] 7 [place] [address] Care Team Providers Care Rural Mail Carrier Name Role Phone Patito Wilhelm MD Primary Care Provider [phone] Wilber Christie PharmD Unavailable [phone] Encounter Details Date Type Department Care Team (Latest Contact Info) Description 03/24/2020 Abstract [facility] CONVERSIONS Dental, Provider, DDS Social History Tobacco [...] Description 08/01/2024 2:00 PM EDT Medication Management [facility] [address] [place] [address] Wilber Christie, PharmD [address] [place] [address] 09/11/2024 11:00 AM EDT Office Visit [facility] [address] [place] [address] 10/12/2024 2:30 PM EDT Office Visit [facility] OPTOMETRY [address] [place] [phone] Jessica Srivastava, OD [address] [place] [phone] documented as of this encounter Visit Diagnoses Not on filedocumented in this encounter Care Teams Rural Mail Carrier Relationship Specialty Start Date End Date Patito Wilhelm MD [address] [place] [address] [phone] PCP - General Family Medicine 11/13/18 Wilber Christie, PennyD [address] [place] [phone] Pharmacist Internal Medicine 01/28/23 documented as of this encounter
--- OUTSIDE RECORDS SUMMARY | 2024-07-12 14:14 | XMS_ITS | Encounter Summary ---
Author Organization [employer] Address [address] [place] [address] 7t [place] [address] Care Team Providers Care Portfolio Assistant Name Role Phone Patito Wilhelm MD Primary Care Provider Wilber Christie PharmD Unavailable [phone] Reason for Visit * Reason Onset Date Comments Med Refill 12/02/2023 Encounter Details Date Type Department Care Team (Late st Contact Info) Description 12/02/2023 Refill [facility] MEDICINE [address] [place], [place] [phone] Patito Wilhelm MD [address] [place], [place] [phone] Chronic bilateral low back pain, unspecified whether sciatica present (Primary Dx) Social History Tobacco Use Types Packs/Day Years [...] Telephone Encounter - Patito Wilhelm MD - 12/02/2023 2:37 PM EDT Please clarify why disp#15. She has been receiving 28 day supply previously. * Telephone Encounter - Kristin David RN - 12/02/2023 1:48 PM EDT TC from pt requesting medication refill. Medications needing refill : oxyCODONE-acetaminophen (Percocet) 5-325 MG tablet To be sent to: [facility]/pharmacy #[employer] [place], [place] [address] RUSTON Prescription last filled on 11/04/23 0 Refills Left ENEDINA with PCP: 08/30/23 * Telephone Encounter - Rodrigue Lawton - 12/02/2023 10:30 AM EDT TC from pt requesting medication refill. Medications needing refill : oxyCODONE-acetaminophen (Percocet) 5-325 MG tablet To be sent to: [facility]/pharmacy #[employer] [facility] RUSTON documented in this encounter Plan of Treatment Upcoming Encounters Date Type Department Care Team (Late st Contact Info) Description 08/01/2024 2:00 PM EDT Medication Management [facility] MEDICINE [address] [place] [address] Wilber Christie PharmD [address] [place] [address] 09/11/2024 11:00 AM EDT Office Visit [facility] MEDICINE [address] [place] [address] 10/12/2024 2:30 PM EDT Office Visit [facility] OPTOMETRY [address] [place], [place] [phone] AtifJessica sheehan, OD [address] [place] [address] documented as of this encounter Goals Goal Patient Goal Type Associated Problems Recent Progress Patient-Stated? Author Blood Pressure < 140/90 Blood Pressure 138/74(2024 1:41 PM EST) No Wilber Christie PharmD Hemoglobin A1c < 7 Result Component 7.8( 2:13 PM EST) No Wilber Christie PharmD documented as of this encounter Visit Diagnoses Diagnosis Chronic bilateral low back pain, unspecified whether sciatica present- Primary documented in this encounter Additional Health Concerns Assessment Noted Time PHQ-9 Depression Total Score: 6 07/27/19 23 1:10 PM EDT documented as of this encounter Care Teams Portfolio Assistant Relationship Specialty Start Date End Date Patito Wilhelm MD [address] [place] [address] [phone] PCP - General Family Medicine 11/13/18 Wilber Christie PharmD [address] [place] [address] [phone] Pharmacist Internal Medicine 01/28/23 documented as of this encounter
== END 2024-07-12 11:06 | disposition home or self-care (01) ==
LOC: HO.HOS 10:45
PROVIDERS: PCP Family Medicine; Visit Provider Orthopaedic Surgery
DX: M25.512 Pain in left shoulder (principal)
CPT/HCPCS: 99024

== ENCOUNTER 2024-08-30 13:43 | Outpatient (REF) | payer OTHER, SELFPAY ==
--- NOTE | ~2024-08-30 | CT_ITS ---
CLINICAL HISTORY: hernia CT abdomen pelvis with IV and oral contrast. Comparison: None Findings: Mild scarring both lower lobes. No consolidation. Normal heart size. No pleural or pericardial effusion. Cholecystectomy. Compensatory appearing extrahepatic biliary dilatation unless elevation of bilirubin. Liver, pancreas, spleen, adrenals and kidneys appear normal. The colon is incompletely opacified, appearing physiologic. Mild stool burden. No obstruction. Diverticulosis without features of diverticulitis. Pelvic appendix, are unopacified although no features of acute appendicitis. Normal abdominal aorta and major branch vessels. Patent hepatic veins, IVC and portal vein. No pathologic adenopathy. No free fluid or free air. Hysterectomy. Urinary bladder appears slightly low-lying extending to the inferior margin of the symphysis. Correlation for mild bladder and rectal prolapse. No acute bone abnormality. Facet arthritis L5-S1. 2.7 x 2.2 cm fat containing low midline ventral hernia. Mouth 1.8 cm. No inflammatory changes. No bowel hernia. Impression: Small lobe midline fat containing ventral hernia. Otherwise no acute process evident. Cholecystectomy. Hysterectomy. Slightly low-lying urinary bladder and rectum. Correlation for mild pelvic floor dysfunction. This document has been electronically signed by: Jorje Zhou MD on 08/31/2024 09:08:56
--- OUTSIDE RECORDS SUMMARY | 2024-08-30 14:20 | XMS_ITS | Encounter Summary ---
Author Organization [employer] Address [address] [facility] 7t [place] [address] Care Team Providers Care Risk Intern Name Role Phone Patito Wilhelm MD Primary Care Provider [phone] Wilber Christie PharmD Unavailable [phone] Reason for Visit * Reason Onset Date Comments Med Refill 08/16/2024 Encounter Details Date Type Department Care Team (Late st Contact Info) Description 08/16/2024 Telephone [facility] MEDICINE [address] [place] [address] Patito Wilhelm MD [address] [place] [address] Med Refill Social History Tobacco Use Types [...] encounter Miscellaneous Notes * Telephone Encounter - eJss Bunn - 08/16/2024 3:21 PM EDT TC from pt requesting medication refill. Medications needing refill : oxyCODONE-acetaminophen (Percocet) 5-325 MG tablet To be sent to: [address] [address] documented in this encounter Plan of Treatment Upcoming Encounters Date Type Department Care Team (Late st Contact Info) Description 09/04/2024 1:30 PM EDT Office Visit [facility] [address] [place] [address] Patito Wilhelm MD [address] [place] [address] 09/11/2024 11:00 AM EDT Office Visit [facility]INE [address] [place] [address] 10/12/2024 2:30 PM EDT Office Visit [facility] OPTOMETRY [address] [place] [address] Jessica Srivastava, OD 230 [place] [address] 10/31/2024 2:00 PM EDT Medication Management [facility] [address] [place] [address] Wilber Christie PharmD [address] [place] [address] documented as of this encounter Goals Goal Patient Goal Type Associated Problems Recent Progress Patient-Stated? Author Blood Pressure < 140/90 Blood Pressure 120/74(2024 2:41 PM EDT) No Wilber Christie PharmD Hemoglobin A1c < 7 Result Component 7.8( 2:13 PM EST) No Wilber Christie PharmD documented as of this encounter Visit Diagnoses Not on filedocumented in this encounter Additional Health Concerns Assessment Noted Time PHQ-9 Depression Total Score: 11 024 1:39 PM EDT documented as of this encounter Care Teams Risk Intern Relationship Specialty Start Date End Date Patito Wilhelm MD [address] [place] [address] [phone] PCP - General Family Medicine 11/13/18 Wilber Christie PharmD [address] [place] [address] [phone] Pharmacist Internal Medicine 01/28/23 documented as of this encounter
--- OUTSIDE RECORDS SUMMARY | 2024-08-30 14:20 | XMS_ITS | Encounter Summary ---
Author Organization [employer] Address [address] [facility] 7t [place] [address] Care Team Providers Care Operators School Manager Name Role Phone Patito Wilhelm MD Primary Care Provider [phone] Wilber Christie PharmD Unavailable [phone] Reason for Visit * Reason Onset Date Comments PAP Smear 08/1008/11/2023 Encounter Details Date Type Department Care Team (Late st Contact Info) Description 08/11/2023 Telephone [facility] MEDICINE [address] [place], [place] [phone] Patito Wilhelm MD 230 [place], [place] [phone] PAP Smear 08/10 Social History Tobacco Use [...] stated she wasn't able ot make it, video games storywriter attempted to r/s but no availability. Spiritual Advisor advised pt call back August 16 r/s for October. documented in this encounter Plan of Treatment Upcoming Encounters Date Type Department Care Team (Late st Contact Info) Description 09/04/2024 1:30 PM EDT Office Visit [facility] MEDICINE [address] [place] [address] Patito Wilhelm MD 230 [place] [address] 09/11/2024 11:00 AM EDT Office Visit [facility] MEDICINE [address] [place] [address] 10/12/2024 2:30 PM EDT Office Visit [facility] OPTOMETRY [address] [place] [address] Jessica Srivastava, NIKKY [address] [place] [address] 10/31/2024 2:00 PM EDT Medication Management [facility] MEDICINE [address] [place] [address] ChristieWilber PharmD 230 [place] [address] documented as of this encounter Goals Goal [...] documented as of this encounter Care Teams Operators School Manager Relationship Specialty Start Date End Date Patito Wilhelm MD [address] [place] [address] PCP - General Family Medicine 11/13/18 Wilber Christie PharmD [address] [place] [address] Pharmacist Internal Medicine 01/28/23 documented as of this encounter
--- OUTSIDE RECORDS SUMMARY | 2024-08-30 14:20 | XMS_ITS | Encounter Summary ---
Author Organization [employer] Address [address] [facility] 7t [place] [address] Care Team Providers Care Rn Case Mgr Name Role Phone Patito Wilhelm MD Primary Care Provider Wilber Christie PharmD Unavailable [phone] Reason for Visit * Reason Onset Date Comments Medication Question 06/09/2023 Encounter Details Date Type Department Care Team ([facility] st Contact Info) Description 06/09/2023 Telephone [facility] MEDICINE [address] [place], [place] [phone] Patito Wilhelm MD 230 [place], [place] [phone] Medication Question Social History Tobacco Use Types [...] If any questions please contact pt at [phone]. documented in this encounter Plan of Treatment Upcoming Encounters Date Type Department Care Team (Late st Contact Info) Description 09/04/2024 1:30 PM EDT Office Visit [facility] MEDICINE [address] [place] [address] Patito Wilhelm MD 230 [place] [address] 09/11/2024 11:00 AM EDT Office Visit [facility] MEDICINE [address] [place] [address] 10/12/2024 2:30 PM EDT Office Visit [facility] OPTOMETRY [address] [place] [address] Jessica Srivastava, NIKKY 230 [place] [address] 10/31/2024 2:00 PM EDT Medication Management [facility] MEDICINE [address] [place] [address] Wilber Christie, PharmD 230 [place] [address] documented as of this encounter Goals Goal Patient Goal Type Associated Problems Recent Progress Patient-Stated? Author Blood Pressure < 140/90 Blood Pressure 120/74( 025 2:41 PM EDT) No Wilber Christie, Kaia documented as of this encounter Visit Diagnoses Not on filedocumented in this encounter Additional Health Concerns Assessment Noted Time PHQ-9 Depression Total Score: 6 07/27/19 23 1:10 PM EDT documented as of this encounter Care Teams Rn Case Mgr Relationship Specialty Start Date End Date Patito Wilhelm MD 230 [place] [address] PCP - General Family Medicine 11/13/18 Wilber Christie, PennyD 230 [place] [address] Pharmacist Internal Medicine 01/28/23 documented as of this encounter
--- OUTSIDE RECORDS SUMMARY | 2024-08-30 14:20 | XMS_ITS | Data Portability ---
Author Organization [employer] Address [address] [place] [phone] Assessment No assessment recorded. Plan of Treatment [...] Not available Not available Not available 02/14/2024 58261 RxNorm Not Available [facility] - production 4 03:41:49 8078 latex environme nt,medica tion Not available Not available Not available 02/14/2024 94771 91 RxNorm Not Available [facility] - production 4 03:41:49 8079 levofloxa leela medicatio n Not available Not available Not available 02/14/2024 22933 RxNorm Not Available [facility] - production 4 [...] SNOMED-CT Code Diagnosis ICD10 Code Diagnosis Note [id number] Ravi Castillo MD Main - [facility] [address] [place] [address] 12/31/2022 17:19:52 01/03/2023 11:18:56 Essential hypertension 09806308 I10 This 57-year-ol d female with hypertensi on treated with metoprolol XL and valsartan called [facility] because her BP has been elevated today. Earlier today she had a knee injection. Her EKG showed no acute findings. Her BP was trending down when the supervisor wet room arrived. I recommende d that she monitor her BP closely and follow-up with her PCP for any medication changes. The patient agreed with this plan. Health Concerns Section Related Observation LastModified by Organization Detai ls LastModified Time None Recorded Concern Status LastModified by Organization Details LastModified Time None Recorded Advance Directives Directive None Recorded Payers Insurance Date Sequence Insurance Name Policy Number Policy Freitas Covered Member ID Freitas Member ID Guarantor Name 06/21/2023 1 [facility] - DOS ON OR AFTER 2022 - DUAL ELIGIBLE - CARE HOME OPTIONS AND ONE CARE (MEDICARE REPLACEMENT/ADV ANTAGE - HMO) Ameena Tejada [id number] Ameena Tejada Notes Date Note Type Note Provider Name and Address Organization Details Recorded Time 12/31/2022 text/html HPI: Patient with trending elevated BP's on last visit at [facility]. Though may be due to pain. [...] required to process visit Ravi Castillo MD [address] [place] [address],[address], [place], [address], [employer] 12/31/2022 17:26:53 OBGyn Episode No OBEpisode recorded.
--- OUTSIDE RECORDS SUMMARY | 2024-08-30 14:20 | XMS_ITS ---
Author Organization [facility] Address [address] [place] [address] Care Team Providers Care Cone Chocolate Dipper Name Role Phone Choco GANDHI, Patito Primary Care Provider Leonardo Harding [phone] REASON FOR VISIT Pt no show Encounters Encounter Location Date Provider Diagnosis [facility] [address] [place] [address] 07/19/2024 Leonardo Stratton Plan Of Treatment No Information Progress Notes * LALY NASSARADOB: 5 (59 yo F)Acc No.[id number]:07/19/2024 Patient:?KANDY NASSARINDA :1965???Age:59 Y???Sex:Female Address:[address] [place] [address] [address], [place] [address] * true * Date:? Generated for Nory funk/Eulalia/eTransmitting on:?08/30/2024 02:20 PM EDT
--- OUTSIDE RECORDS SUMMARY | 2024-08-30 14:20 | XMS_ITS | Encounter Summary ---
Author Organization [employer] Address [address] [facility] 7t [place] [address] Care Team Providers Care Assembler Faucets Name Role Phone Patito Wilhelm MD Primary Care Provider [phone] Wilber Christie PharmD Unavailable [phone] Reason for Visit * Reason Onset Date Comments Nurse Triage 05/25/2024 Encounter Details Date Type Department Care Team ([facility] st Contact Info) Description 05/25/2024 Telephone [facility] MEDICINE [address] [place] [address] Patito Wilhelm MD [address] [place] [address] Nurse Triage Social History Tobacco Use Types [...] Will send this note to Walk in service desk specialist and Nurses as Pt. May be coming [...] Call Ahead Before Visiting Your Doctor (or VARYING EXCEPTIONALITIES TEACHER/PA) * Telephone Encounter - Jess Bunn - 05/25/2024 12:53 PM EST Symptoms: Low Blood Pressure - Caller Reports, Cough, Headache, Nausea But No Vomiting Outcome: Talk to a nurse or provider within 15 minutes Reason: Trouble walking The caller accepted this outcome. [phone] documented in this encounter Plan of Treatment Upcoming Encounters Date Type Department Care Team (Late st Contact Info) Description 09/04/2024 1:30 PM EDT Office Visit [facility] MEDICINE [address] [place] [address] Patito Wilhelm MD [address] [place] [address] 09/11/2024 11:00 AM EDT Office Visit [facility] MEDICINE [address] [place] [address] 10/12/2024 2:30 PM EDT Office Visit [facility] OPTOMETRY [address] [place] [address] Jessica Srivastava OD 230 [place] [address] 10/31/2024 2:00 PM EDT Medication Management [facility] MEDICINE [address] [place] [address] Wilber Christie PharmD [address] [place] [address] documented as of this encounter Goals Goal [...] documented as of this encounter Care Teams Assembler Faucets Relationship Specialty Start Date End Date Patito Wilhelm MD [address] [place] [address] PCP - General Family Medicine 11/13/18 Wilber Christie PharmD [address] [place] [address] Pharmacist Internal Medicine 01/28/23 documented as of this encounter
--- OUTSIDE RECORDS SUMMARY | 2024-08-30 14:20 | XMS_ITS | Encounter Summary ---
Author Organization [email or web address] Address [address] [facility] 7t [place] [address] Care Team Providers Care Hide Mill Worker Name Role Phone Patito Wilhelm MD Primary Care Provider [phone] Wilber Christie PharmD Unavailable [phone] Reason for Visit * Reason Onset Date Comments Med Refill 03/08/2023 Encounter Details Date Type Department Care Team ([facility] st Contact Info) Description 03/08/2023 Telephone [facility] MEDICINE [address] [place], [place] [phone] Patito Wilhelm MD [address] [place], [place] [phone] Med Refill Social History Tobacco Use Types [...] (Percocet) 5-325 MG tablet Please sent to [facility]/pharmacy #[id number] [place], [place] - [address] [place] [address] documented in this encounter Plan of Treatment Upcoming Encounters Date Type Department Care Team (Late st Contact Info) Description 09/04/2024 1:30 PM EDT Office Visit [facility] MEDICINE [address] [place] [address] Patito Wilhelm MD [address] [place] [address] 09/11/2024 11:00 AM EDT Office Visit [facility] MEDICINE [address] [place] [address] 10/12/2024 2:30 PM EDT Office Visit [facility] OPTOMETRY [address] [place] [address] Jessica Srivastava, NIKKY [address] [place] [address] 10/31/2024 2:00 PM EDT Medication Management [facility] MEDICINE [address] [place] [address] Wilber Christie, PharmD [address] [place] [address] documented as of this encounter Goals Goal [...] documented as of this encounter Care Teams Hide Mill Worker Relationship Specialty Start Date End Date Patito Wilhelm MD [address] [place] [address] PCP - General Family Medicine 11/13/18 Wilber Christie, PennyD [address] [place] [address] Pharmacist Internal Medicine 01/28/23 documented as of this encounter
--- OUTSIDE RECORDS SUMMARY | 2024-08-30 14:21 | XMS_ITS | Clinical Summary ---
Author Organization [facility] Address [address] [facility] [address] [place] [address] Phone Care Team Providers Care Mail Distribution Clerk Name Role Phone Patito Wilhelm MD Primary Care Provider [phone] Allergies Active Allergy Reactions Criticality Noted Date [...] & Plan: - recommended to check with pipe bowls paint trimmer if she can receive steroid injection Chronic primary bladder pain syndrome 08/14/2012 05/03/2023 Overview (05/03/2023): Last Assessment & Plan: -[place] [facility] last seen on 02/22/22 -Prescribed tamsulosin Chronic low back pain 08/14/2012 05/03/2023 Overview (05/03/2023): Last Assessment & Plan: -Seen by pipe bowls paint trimmer on 12/16/22, yet mainly for left knee [...] (05/03/2023): Last Assessment & Plan: -Followed by [facility] pulmonology, last seen on 11/30/21 -Questionable adherence to medications according to refill history -Reviewed her medications today and discussed about the importance of adherence -Continue Dulera and Spiriva as maintenance -Continue albuterol HFA prn as rescue -Consider referring to MTM -Urged to schedule appt with magazine keeper; pt verbalized understanding Type 2 diabetes mellitus [...] active Hep C. -Check the satus of Jag.age -Last eye exam: 06/18/22, no retinopathy -Last [...] Last Assessment & Plan: - Following with [facility] Roustabout Crew Leader, last seen on 12/16/22, started on Euflexxa injection - XR on 12/16/22 showed : mild Osteoarthritis - Currently receiving intraarticular Euflexxa (hyaluronate derivative) Injection - Continue current Tx plan per pipe bowls paint trimmer Viral hepatitis C 09/20/2011 05/03/2023 Social History [...] Office Visit [facility] [address] [facility] [address] [place] [phone] Jareth Rowan MD [address] [facility] [address] [place] [phone] Health Maintenance Due Date Last Done Comments Breast Cancer Screening 1965 Hepatitis B Vaccine (1 of 3 - 19+ 3-dose series) 1984 Colorectal Cancer Screening: Annual FOBT 2014 Colorectal Cancer Screening: Colonoscopy 2014 Colorectal Cancer Screening: Sigmoidoscopy 2014 Diabetes: Ophthalmology Exam 02/15/2023 Diabetes: Pedal Pulse Checked 02/15/2023 Diabetes: Sensory Foot Exam 02/15/2023 Diabetes: Visual Foot Exam 02/15/2023 Diabetes: Hemoglobin A1C 03/07/2024 024, 06/02/2023, 12/06/2022 Influenza Vaccine (Season Ended) 2024 01/10/2023, 01/05/2022, 02/06/2021, Additional history exists Pneumococcal Vaccine: 50+ Years Completed 10/08/2022, 05/10/2022, 02/13/2002 Pneumococcal Vaccine: Peds ( 0 to 5 Years) and At-Risk Patients (6 to 49 Years) Discontinued 10/08/2022, 05/10/2022, 02/13/[address] [place] [id number] [facility] ([id number]) [facility] ([id number]) Care Teams Mail Distribution Clerk Relationship Specialty Start Date End Date Patito Wilhelm MD [address] [place] [address] PCP - General Family Medicine 02/07/24
--- OUTSIDE RECORDS SUMMARY | 2024-08-30 14:21 | XMS_ITS ---
Author Organization [facility] Address [address] [place] [address] Care Team Providers Care Market Survey Representative Name Role Phone Choco GANDHI, Patito Primary Care Provider Leonardo Harding Unavailable [phone] REASON FOR VISIT screening Problems Problem Type SNOMED Code ICD Code Onset Dates Problem Status W/U Status Risk Notes Problem Diverticulosis o f large intestine without perforation or abscess without bleeding (K57.30) Active confirmed Encounters Encounter Location Date Provider Diagnosis [facility] [address] [place], [place] [phone] 10/19/2023 Leonardo Stratton Encounter for scre ening [...] Of Treatment No Information Progress Notes * NASSAR, LALYADOB: 5 (59 yo F)Acc No.[id number]:10/19/2023 COLON WITH MAC Patient:?JAMEL NASSAR Provider:?Leonardo Stratton MD :1965???Age:58 Y???Sex:Female D ate:10/19/2023 Address:[address] [place] [address] [address], [id number] Pcp:Patito Wilhelm MD Subjective: * Chief Complaints: * ???1. Screening. * Medical History:? Objective: * Vitals:? Assessment: * Assessment: 1.?Encounter for screening c olonoscopy - Z12.11 (Primary)???2.?Diverticulosis of large intestine without perforation or abscess without bleeding - K57.30???3.?Other hemorrhoids - K64.8??? Plan: * Treatment: * Procedure Codes:?76440 DIAGN OSTIC COLONOSCOPY * * The named appointment provid er may or may not be the originator of this progress note, and it is not deemed complete until electronically signed by the appointment provider. Sign off status: Pending * Provider:?Leonardo Stratton MD Date:? 024 Generated for Nory funk/Eulalia/Lanitting on:?08/30/2024 02:20 PM EDT
--- OUTSIDE RECORDS SUMMARY | 2024-08-30 14:21 | XMS_ITS | Encounter Summary ---
Author Organization [employer] Address [address] [facility] 7t [place] [address] Care Team Providers Care Messenger Copy Name Role Phone Patito Wilhelm MD Primary Care Provider [phone] Wilber Christie PharmD Unavailable [phone] Reason for Visit * Reason Comments Med Refill Encounter Details Date Type Department Care Team ([facility] Contact Info) Description 08/11/2022 Refill [facility] MEDICINE [address] [place] [address] Racquel Fu MD [address] [place] [address] Social History Tobacco Use Types Packs/Day Years [...] Upcoming Encounters Date Type Department Care Team ([facility] Contact Info) Description 09/04/2024 1:30 PM EDT Office Visit [facility] MEDICINE [address] [facility] [place] [address] Patito Wilhelm MD [address] [facility] [place] [address] 09/11/2024 11:00 AM EDT Office Visit [facility] MEDICINE [address] [place] [address] 10/12/2024 2:30 PM EDT Office Visit [facility] OPTOMETRY [address] [place] [address] Atif, Jessica, OD [address] [place] [address] 10/31/2024 2:00 PM EDT Medication Management [facility] MEDICINE [address] [place] [address] Wilber Christie, PharmKit [address] [place] [address] documented as of this encounter Visit Diagnoses Not on filedocumented in this encounter Additional Health Concerns Assessment Noted Time PHQ-9 Depression Total Score: 6 07/27/19 23 1:10 PM EDT documented as of this encounter Care Teams Messenger Copy Relationship Specialty Start Date End Date [place] [address] PCP - General Family Medicine 11/13/18 Wilber Christie, PharmD [address] [place] [address] Pharmacist Internal Medicine 01/28/23 documented as of this encounter
--- OUTSIDE RECORDS SUMMARY | 2024-08-30 14:21 | XMS_ITS | Encounter Summary ---
Author Organization [employer] Address [address] [facility] 7t [place] [address] Care Team Providers Care Health Program Specialist Name Role Phone Patito Wilhelm MD Primary Care Provider [phone] Wilber Christie PharmD Unavailable [phone] Reason for Visit * Reason Onset Date Comments Med Refill 02/07/2023 Encounter Details Date Type Department Care Team ([facility] st Contact Info) Description 02/07/2023 Telephone [facility] MEDICINE [address] [place], [place] [phone] Patito Wilhelm MD [address] [place], [place] [phone] Med Refill Social History Tobacco Use Types [...] Description 09/04/2024 1:30 PM EDT Office Visit [facility] MEDICINE [address] [place] [address] Patito Wilhelm MD [address] [place] [address] 09/11/2024 11:00 AM EDT Office Visit [facility] MEDICINE [address] [place] [address] 10/12/2024 2:30 PM EDT Office Visit [facility] OPTOMETRY [address] [place] [address] Jessica Srivastava, OD [address] [place] [address] 10/31/2024 2:00 PM EDT Medication Management [facility] MEDICINE [address] [place] [address] Wilber Christie, PharmD [address] [place] [address] documented as of this encounter Goals Goal Patient Goal Type Associated Problems Recent Progress Patient-Stated? Author Blood Pressure < 140/90 Blood Pressure 120/74( 025 2:41 PM EDT) No Wilber Christie, PharmD documented as of this encounter Visit Diagnoses Not on filedocumented in this encounter Additional Health Concerns Assessment Noted Time PHQ-9 Depression Total Score: 6 07/27/19 23 1:10 PM EDT documented as of this encounter Care Teams Health Program Specialist Relationship Specialty Start Date End Date Patito Wilhelm MD [address] [place] [address] PCP - General Family Medicine 11/13/18 Wilber Christie, PharmD [address] [place] [address] Pharmacist Internal Medicine 01/28/23 documented as of this encounter
--- OUTSIDE RECORDS SUMMARY | 2024-08-30 14:21 | XMS_ITS | Encounter Summary ---
Author Organization [employer] Address [address] [place] [address] 7t [place] [address] Care Team Providers Care Deli/Bakery Associate Name Role Phone Patito Wilhelm MD Primary Care Provider [phone] Wilber Christie PharmD Unavailable [phone] Reason for Visit * Reason Comments Med Refill Encounter Details Date Type Department [facility] Description 01/13/2023 Refill [facility] MEDICINE [address] [place], [place] [phone] Ashley Goodman MD [address] [place], [place] [phone] Chronic right shoulder pain Social History Tobacco [...] Upcoming Encounters Date Type Department Care [facility] Description 09/04/2024 1:30 PM EDT Office Visit [facility] MEDICINE 230 [place], [place] [phone] Patito Wilhelm MD [address] [place] [address] 09/11/2024 11:00 AM EDT Office Visit [facility] MEDICINE [address] [place] [address] 10/12/2024 2:30 PM EDT Office Visit [facility] OPTOMETRY [address] [place] [address] Atif, Jessica, OD [address] [place] [address] 10/31/2024 2:00 PM EDT Medication Management [facility] MEDICINE [address] [place] [address] Wilber Christie, Kaia [address] [place] [address] documented as of this encounter Visit Diagnoses Diagnosis Chronic right shoulder pain Pain in joint, shoulder region documented in this encounter Additional Health Concerns Assessment Noted Time PHQ-9 Depression Total Score: 6 07/27/19 23 1:10 PM EDT documented as of this encounter Care Teams Deli/Bakery Associate Relationship Specialty Start Date End Date Patito Wilhelm MD [address] [place] [phone] PCP - General Family Medicine 11/13/18 Wilber Christie, PharmD [address] [place] [address] Pharmacist Internal Medicine 01/28/23 documented as of this encounter
--- OUTSIDE RECORDS SUMMARY | 2024-08-30 14:21 | XMS_ITS | Encounter Summary ---
Author Organization [employer] Address [address] [facility] 7t [place] [address] Care Team Providers Care Data Control Clerk Name Role Phone Patito Wilhelm MD Primary Care Provider [phone] Wilber Christie PharmD Unavailable [phone] Reason for Visit * Reason Onset Date Comments Med Refill 07/11/2024 Encounter Details Date Type Department Care Team ([facility] st Contact Info) Description 07/11/[address] [facility] MEDICINE [address] [place], [place] [phone] Patito Wilhelm MD 230 [place] [address] Med Refill Social History Tobacco Use Types [...] 5-325 MG tablet To be sent to: [address] [address] documented in this encounter Plan of Treatment Upcoming Encounters Date Type Department Care Team (Late st Contact Info) Description 09/04/2024 1:30 PM EDT Office Visit [facility] MEDICINE [address] [place] [address] Patito Wilhelm MD [address] [place] [address] 09/11/2024 11:00 AM EDT Office Visit [facility] MEDICINE [address] [place] [address] 10/12/2024 2:30 PM EDT Office Visit [facility] OPTOMETRY [address] [place] [address] Jessica Srivastava, OD [address] [place] [address] 10/31/2024 2:00 PM EDT Medication Management [facility] MEDICINE [address] [place] [address] Wilber Christie PharmD [address] [place], [place] [phone] documented as of this encounter Goals Goal [...] documented as of this encounter Care Teams Data Control Clerk Relationship Specialty Start Date End Date Patito Wilhelm MD [address] [place] [address] [phone] PCP - General Family Medicine 11/13/18 Wilber Christie PharmD [address] [place] [address] [phone] Pharmacist Internal Medicine 01/28/23 documented as of this encounter
--- OUTSIDE RECORDS SUMMARY | 2024-08-30 14:21 | XMS_ITS | Patient Health Record ---
Author Organization [facility] [employer] Address [address] [place] [address] Care Team Providers Care Assisted Living Director Name Role Phone Choco GANDHI, Patito Primary Care Provider Leonardo Harding [phone] Allergies Allergen (clinical drug ingredient) Drug/Non Drug Allergy documented on EMR Reaction Allergy Type Onset Date Status Flexeril Unknown Drug Allergy Active Avandia (uncoded) Unknown Allergy Ac tive aspirin ASA (uncoded) Unknown Allergy Active Levaquin (uncoded) Unknown Allergy A ctive azithromycin zithromax (uncoded) Unknown Allergy Active Glucotrol Unknown Drug Allergy Active Results Component Value Reference Range Notes Glucose, Whole Blood Reviewed date:10/19/2023 02:23:24 PM Interpretation: Performing Lab:[facility], [address] [place] [phone] Notes/Report: Glucose, Whole Blood 189 60-115 mg/dL METER # : [id number] Reason For Referral No Information Medications Medication SIG (Take, Route, Frequency, Duration) Notes Start Date End Date Status ZyrTEC 10 MG 1 tablet Orally Once a day for 30 day(s) Active Trulicity Active Azelastine & Fluticasone 137 & 50 MCG/ACT as directed Nasally Acti ve Nitroglycerin Active Dulera 200-5 MCG/ACT 2 puffs Inhalation Twice a day Active Prevalite 4 GM/DOSE USE 1/2-1 SCOOP 1-2X A DAY FOR DIARRHEA ORALLY 30 DAY(S) for 90 Active Dicyclomine HCl 10 MG TAKE 1-2 CAPSULE B Y MOUTH EVERY 6 HOURS NEEDED FOR ABDOMINAL DISCOMFORT FOR 30 DAYS Orally Every 6 hours as needed for abdominal discomfort/cramps/bloat ing for 30 days Active Albuterol Sulfate (sensor) 108 (90 Base) MCG/ACT 1 puff as needed Inhalation every 4 hrs Active Cholestyramine 4 GM/DOSE 1/2 to 1 scoop Orally QD-BID for diarrhea Active Docusate Sodium 100 MG TAKE 1 CAPSULE BY MOUTH EVERY DAY NEEDED Oral for 30 Active Ventolin HFA 108 (90 Base) MCG/ACT TAKE 2 PUFFS BY MOUTH EVERY 4 TO 6 HOURS NEEDED Inhalation for 30 Active Albuterol Sulfate HFA 108 (90 Base) MCG/ACT TAKE 2 PUFFS BY MOUTH EVERY 4 TO 6 HOURS NEEDED Inhalation for 16 Active MiraLax (colon prep) 17 GM/SCOOP 1 238Gm bottle mixed with Gatorade or Crystal Light Orally begin at 5:00 p.m. the day before the procedure for 1 day 07/20/2023 Active Atorvastatin Calcium 10 MG 1 tablet Orally Once a day Active Dulcolax (colon prep) 5 MG take at 3:00 p.m and 7:00p.m. Orally two tablets twice a day for one day for 1 day 07/20/2023 Active Flonase 50 MCG/ACT 1 spray in [...] with food Orally Once a day Active Carafate 1 GM 1 tablet on an empty stomach Orally TID for 30 day(s) 01/01/2019 Not-Taking ProAir HFA 108 (90 Base) MCG/ACT 2 puffs as needed Inhalation every 6 hrs Active NovoLOG 100 UNIT/ML 70/30 Subcutaneous a s directed Active Omeprazole 20 MG TAKE 1 CAPSULE BY MO UT EVERY DAY IN THE MORNING for 90 Active Singulair 10 MG 1 tablet Orally Once a day Active Vitamin B Complex - as directed Orally Active Valsartan-hydroCHLOROthia zide 160-25 MG 1 tablet Orally Once a day for 30 day(s) 07/21/2022 Active Vitamin D-3 125 MCG (5000 UT) as directed Orally Active DULoxetine HCl 20 MG 1 capsule Orally Tw ice a day for 30 day(s) Active Pregabalin 100 MG 1 capsule Orally Onc e a day Active Immunizations Vaccine Route Administration Date Status Comme nts Influenza Unknown 01/23/2018 Administered Influenza Unknown 01/16/2019 Administered Influenza Unknown 12/31/2020 Administered Influenza Unknown 02/02/2022 Administered Influenza Unknown 03/08/2023 Administered Problems Problem Type SNOMED Code ICD Code Onset Dates Problem Status W/U Status Risk Notes Problem Colon cancer screening (188975948) Colon cancer screening (Z12.11) Active confirmed Problem Diverticular disease of colon (942652761) Diverticulosis of large intestine without perforation or abscess without bleeding (K57.30) Active confirmed Problem 217853904 Irritable bowel syndrome with diarrhea (K58.0) Active confirmed Problem 687098224 Right upper quadrant pain (R10.11) Active confirmed Problem Nausea (628228253) Nausea (R11.0) Active confirmed Problem 122904127 Gastroesophageal reflux disease without esophagitis (K21.9) Active confirmed Problem 473556751 Chronic hepatiti s C without hepatic coma (B18.2) Active confirmed Problem 349718878 Chronic hepatiti s C (B18.2) Active confirmed Problem 007724303 Abdominal pain, right upper quadrant (R10.11) Active confirmed Problem Belching (046779158) Belching (R14.2) Active confirmed Problem 60017799466732 History of hepatitis C (Z86.19) Active confirmed Problem 573703167 RUQ abdominal pa in (R10.11) Active confirmed Problem 72875582 Irritable bowel syndrome, unspecified type (K58.9) Active confirmed Problem 13143910 Gallbladder slud ge (K82.8) Active confirmed Problem Hepatic fibrosis (disorder) (91018339) Liver fibrosis (K74.00) Active confirmed Encounters Encounter Location Date Provider Diagnosis [facility] [place] [address] [place], [place] [phone] 10/19/2023 Leonardo Stratton Encounter for screen ing colonoscopy Z12.11 ; Diverticulosis of large intestine without perforation or abscess without bleeding K57.30 and Other hemorrhoids K64.8 [facility] [address] [place] [address] 07/19/2024 Leonardo Stratton Assessments Encounter Date Diagnosis (ICD Code) Assessment Notes Treatment Notes Treatment Clinical Notes Section Notes 10/19/2023 Encounter for screening colonoscopy (ICD-10 - Z12.11) 10/19/2023 Diverticulosis of large intestine without perforation or abscess without bleeding (ICD-10 - K57.30) 10/19/2023 Other hemorrhoids (ICD-10 - K64.8) Plan Of Treatment Pending Test Test Name Order Date LIVER PROFILE 03/05/2020 LIVER PROFILE 07/21/2022 LIVER PROFILE 12/19/2014 LIVER PROFILE 03/13/2019 LIVER PROFILE 06/12/2013 LIVER PROFILE 07/20/2023 LIVER PROFILE 06/01/2015 LIVER PROFILE 05/29/2015 LIVER PROFILE 05/27/2021 LIVER PROFILE 03/17/2018 LIVER PROFILE 02/08/2015 CBC w DIFF 02/08/2015 CBC w DIFF 07/21/2022 CBC w DIFF 12/19/2014 CBC w DIFF 07/20/2023 CBC w DIFF 05/27/2021 PROTHROMBIN TIME (PT, INR) 05/27/2021 ALPHA-FETOPROTEIN,TUMOR MARKER 6 ALPHA-FETOPROTEIN,TUMOR MARKER 0 ALPHA-FETOPROTEIN,TUMOR MARKER 7 ALPHA-FETOPROTEIN,TUMOR MARKER 9 ALPHA-FETOPROTEIN,TUMOR MARKER 3 ALPHA-FETOPROTEIN,TUMOR MARKER 8 ALPHA-FETOPROTEIN,TUMOR MARKER 4 HEPATITIS C VIRAL LOAD 03/17/2018 HEPATITIS C VIRAL LOAD 07/20/2023 HEPATITIS C VIRAL LOAD 05/27/2021 HEPATITIS C VIRAL LOAD 02/08/2015 HEPATITIS C VIRAL LOAD 02/16/2017 HEPATITIS C VIRAL LOAD 12/19/2014 HEPATITIS C VIRAL LOAD 06/01/2015 HEPATITIS C VIRAL LOAD 03/13/2019 HEPATITIS C VIRAL LOAD 05/29/2015 HEPATITIS C VIRAL LOAD 07/21/2022 NUC GASTRIC ANTRUM EMPTYING 07/20/2023 NUC HIDA SCAN 04/07/2017 NUC HIDA SCAN 01/18/2018 US ABD 03/05/2020 US LIVER BIOPSY CORE GUIDE 04/21/2011 HCV LIVER FIBROSIS, FIBRO TEST 2 US ABDOMEN COMP WITH ELASTOGRAPHY 2022 US ABDOMEN COMP WITH ELASTOGRAPHY 2021 Prothrombin Time INR 07/20/2023 Alpha Fetoprotein 05/27/2021 Liver Fibrosis Pnl 07/21/2022 Liver Fibrosis Pnl 07/20/2023 US abdomen comp w elastography Future Test Test Name Order Date COLONOSCOPY 06/12/2013 COLONOSCOPY 07/20/2023 Insurance Providers Payer Name Payer Address Payer Phone Subscriber Number Group Number Insured Name Patient Relationship to Insured Coverage Start Date Coverage End Date [facility] [address] Attn Claims JOSE Workman [id number] JAMEL NASSAR Self - patient is the insured Medical (General) History Medical History History ICD Code Chronic hepatitis C--she has genotype 1a--she originally had a negative hepatitis C viral load in 2002, but subsequently developed a positive viral load 2003--she had had an acute hepatitis in 2002 that was felt to be related to Avandia, but in retrospect may have been an acute infection with hepatitis C--she was treated with a 6 month course of pegylated interferon and ribavirin 2004, but did not respond to that. She had a liver biopsy in 2003 revealing a grade 2/4 hepatitis and stage 0/IV fibrosis. She had a followup liver biopsy in 2011 which revealed similar findings with some fatty liver, grade 2/4 hepatitis, and a stage 0/IV fibrosis. Finished 3 months of Harvoni in 03/2015--she had a neg. Hepatitis C viral load in 05/2015, 11/2015, 2016, and 04/2018 IDDM Hypertension Asthma GERD with hiatal hernia Irritable bowel syndrome Denies [place], stroke, and renal disease Fatty liver EGD and Colonoscopy in --EGD showed a small HH,with duodenal bx neg. for celiac disease; colonoscopy revealed mild diverticulosis and internal hemoorrhoids--no polyps Back pain-bulging discs Arthritis Negative colonoscopy in 07/2013 except fo r internal hemorrhoids Depression Neuropathy Surgical History Surgery Date(Month/Year) Hysterectomy Tubal ligation Bladder surgery- to decrease urinary damaso quency 09/2011 Carpal tunnel Heel spurs/plantar fasciitis Finger surgery 03/27/2014 Rotator cuff Trigger fingers--multiple surgeries Cholecystectomy--Dr. Irby 03/13/2018 Cyst on left foot removed Right shoulder surgery rotator cuff
--- OUTSIDE RECORDS SUMMARY | 2024-08-30 14:21 | XMS_ITS | Encounter Summary ---
Author Organization [employer] Address [address] [facility] 7t [place] [address] Care Team Providers Care Capacity Planning Manager Name Role Phone Patito Wilhelm MD Primary Care Provider [phone] Wilber Christie PharmD Unavailable [phone] Reason for Visit * Reason Onset Date Comments Med Refill 12/02/2023 Encounter Details Date Type Department Care Team (Late st Contact Info) Description 12/02/2023 Refill [facility] [address] [place], [place] [phone] Patito Wilhelm MD [address] [place], [place] [phone] Chronic bilateral low back pain, unspecified whether [...] 5-325 MG tablet To be sent to: [facility]/pharmacy #[employer] [place] [address] [facility] Prescription last filled on 11/04/23 0 Refills Left ENEDINA with PCP: 08/30/23 * Telephone Encounter - Rodrigue Lawton - 12/02/2023 10:30 AM EDT TC from pt requesting medication refill. Medications needing refill : oxyCODONE-acetaminophen (Percocet) 5-325 MG tablet To be sent to: [facility]/pharmacy #[employer] [place], [place] [address] [employer] [place] documented in this encounter Plan of Treatment Upcoming Encounters Date Type Department Care Team (Late st Contact Info) Description 09/04/2024 1:30 PM EDT Office Visit [facility] [address] [place] [address] Patito Wilhelm MD [address] [place] [address] 09/11/2024 11:00 AM EDT Office Visit [facility] [address] [place] [address] 10/12/2024 2:30 PM EDT Office Visit [facility] [address] [place] [address] Atif, Jessica, OD [address] [place] [address] 10/31/2024 2:00 PM EDT Medication Management [facility] [address] [place] [address] Wilber Christie PharmD [address] [place] [address] documented as of this encounter Goals Goal [...] documented as of this encounter Care Teams Capacity Planning Manager Relationship Specialty Start Date End Date Patito Wilhelm MD [address] [place] [address] PCP - General Family Medicine 11/13/18 Wilber Christie PharmD [address] [place] [phone] Pharmacist Internal Medicine 01/28/23 documented as of this encounter
--- OUTSIDE RECORDS SUMMARY | 2024-08-30 14:21 | XMS_ITS | Encounter Summary ---
Author Organization [employer] Address [address] [facility] 7t [place] [address] Care Team Providers Care Inside Plant Supervisor Name Role Phone Patito Wilhelm MD Primary Care Provider [phone] Wilber Christie PharmD Unavailable [phone] Reason for Visit * Reason Onset Date Comments triage 06/22/2022 Encounter Details Date Type Department Care Team (Late st Contact Info) Description 06/22/2022 Telephone [facility] [address] [place], [place] [phone] Patito Wilhelm MD [address] [place], [place] [phone] triage Social History Tobacco Use Types Packs/Day [...] Description 09/04/2024 1:30 PM EDT Office Visit [facility] [address] [place] [phone] Patito Wilhelm MD [address] [place] [address] 09/11/2024 11:00 AM EDT Office Visit [address] [phone] 10/12/2024 2:30 PM EDT Office Visit [facility] OPTOMETRY [address] [place], [place] [phone] Atif, Jessica, OD [address] [place] [address] 10/31/2024 2:00 PM EDT Medication Management [facility] [address] [place] [address] Wilber Christie, PharmD [address] [place] [address] documented as of this encounter Visit Diagnoses Not on filedocumented in this encounter Care Teams Inside Plant Supervisor Relationship Specialty Start Date End Date Patito Wilhelm MD [address] [place] [phone] PCP - General Family Medicine 11/13/18 Wilber Christie, PharmD [address] [place] [phone] Pharmacist Internal Medicine 01/28/23 documented as of this encounter
--- OUTSIDE RECORDS SUMMARY | 2024-08-30 14:21 | XMS_ITS | Encounter Summary ---
Author Organization [employer] Address [address] [facility] 7[address] [place] [address] Care Team Providers Care Admissions Consultant Name Role Phone Patito Wilhelm MD Primary Care Provider [phone] Wilber Christie PharmD Unavailable [phone] Reason for Visit * Reason Onset Date Comments Appointment Request 10/19/2023 Encounter Details Date Type Department Care Team ([facility] st Contact Info) Description 10/19/2023 Telephone [facility] [address] [place], [place] [phone] Patito Wilhelm MD [address] [place] [address] Appointment Request Social History Tobacco Use Types [...] week with PCP. Please contact pt at [phone] documented in this encounter Plan of Treatment Upcoming Encounters Date Type Department Care Team (Late st Contact Info) Description 09/04/2024 1:30 PM EDT Office Visit [facility] [address] [place] [phone] Patito Wilhelm MD [address] [place] [address] 09/11/2024 11:00 AM EDT Office Visit [facility] [address] [place] [phone] 10/12/2024 2:30 PM EDT Office Visit [facility]OM[facility] [address] [place] [phone] Jessica Srivastava, NIKKY [address] [place] [address] 10/31/2024 2:00 PM EDT Medication Management [facility] [address] [place] [phone] Wilber Christie, PharmD [address] [place] [address] documented as of this encounter Goals Goal Patient Goal Type Associated Problems Recent Progress Patient-Stated? Author Blood Pressure < 140/90 Blood Pressure 120/74(2024 2:41 PM EDT) No Wilber Christie, Kaia Hemoglobin A1c < 7 Result Component 7.8( 2:13 PM EST) No Wilber Christie PharmD documented as of this encounter Visit Diagnoses Not on filedocumented in this encounter Additional Health Concerns Assessment Noted Time PHQ-9 Depression Total Score: 6 07/27/19 23 1:10 PM EDT documented as of this encounter Care Teams Admissions Consultant Relationship Specialty Start Date End Date Patito Wilhelm MD [address] [place] [address] PCP - General Family Medicine 11/13/18 Wilber Christie PharmD [address] [place] [phone] Pharmacist Internal Medicine 01/28/23 documented as of this encounter
--- OUTSIDE RECORDS SUMMARY | 2024-08-30 14:21 | XMS_ITS | Clinical Summary ---
Author Organization [employer] Address [address] [facility] [address] [place] [address] Care Team Providers Care Sofa Inspector Name Role Phone Patito Givens MD Primary Care Provider [phone] iWlber Christie PharmD Unavailable [phone] Allergies Active Allergy Reactions Criticality Noted Date [...] in the morning and at bedtime. Active Alcohol Swabs (Alcohol Prep Pads) 70 % padsIndications:Ty pe 2 diabetes mellitus with diabetic polyneuropathy, with long-term current use of insulin (CMS/HCC) Apply 1 Pad topically 2 times daily. 100 each 5 Active celecoxib (CeleBREX) 200 MG capsule TAKE 1 CAPSULE ORALLY EVERY 12 HOURS NEEDED FOR PAIN Active montelukast (Singulair) 10 MG tabletIndications: Moderate persistent asthma without complication Take 1 tablet (10 mg) by mouth in the morning. 90 tablet 3 Active B Complex Vitamins (vitamin B complex) tablet Take 1 tablet by mouth 2 times daily. 180 tablet 3 Active cholecalciferol VITAMIN D (Vitamin D-3) 50 MCG (2000 UT) capsule Take 1 capsule (50 mcg) by mouth Once per day. 90 capsule 3 Active meclizine (Antivert) 25 MG tabletIndications: BPPV (benign paroxysmal positional vertigo), unspecified laterality Take 1 tablet (25 mg) by mouth if needed in the morning, at noon, and at bedtime for dizziness or nausea. 30 tablet Active cetirizine (ZyrTEC) 10 MG tablet TAKE 1 TABLET BY MOUTH EVERY DAY IN THE MORNING 90 tablet 3 Active valsartan-hydroCHL OROthiazide (Diovan-HCT) 320-25 MG tablet Take 1 tablet by mouth Once per day. 02/06 Active Semaglutide, 2 MG/DOSE, (Ozempic, 2 MG/DOSE,) 8 MG/3ML solution pen-injectorIndica tions:Type 2 diabetes mellitus with both eyes affected by mild nonproliferative retinopathy without macular edema, with long-term current use of insulin (CMS/HCC) Inject 0.75 mL (2 mg) under the skin 1 (one) time per week. 3 mL 5 Active azelastine (Astelin) 0.1 % nasal spray Administer 1 spray into each nostril 2 times daily. Use in each nostril as directed 30 mL 024 03/27 Active albuterol (Ventolin HFA) 108 (90 [...] with long-term current use of insulin (CMS/HCC) Check blood glucose 3 times daily and as needed 100 each Active pregabalin (Lyrica) 75 MG capsuleIndications :Meralgia paresthetica, left Take 1 capsule by mouth, two times every day. 60 capsule 1 Active metoprolol succinate XL (Toprol XL) 50 [...] edema, with long-term current use of insulin (CMS/[facility]) INJECT 25 UNITS subcutaneously TWICE DAILY 15 mL 11 025 Active insulin pen needle (B-D ULTRAFINE III SHORT PEN) 31G X 8 mm misc USE DIRECTED 3 TIMES A DAY 100 each 5 025 Active rosuvastatin (Crestor) 20 MG tabletIndications: Type 2 diabetes mellitus with both eyes affected by mild nonproliferative retinopathy without macular edema, with long-term current use of insulin (CMS/HCC) Take 1 tablet by mouth once daily 90 tablet 3 025 Active DULoxetine (Cymbalta) [address] capsule Take 1 capsule (20 mg) by mouth Once per day. Do not crush or chew. 90 capsule 3 025 Active oxyCODONE-acetamin ophen (Percocet) 5-325 MG tabletIndications: Chronic back pain, unspecified back location, unspecified back pain laterality Take 1 tablet by mouth every 12 (twelve) hours if needed for severe pain for up to 28 days. 56 tablet 025 09/13 Active guaiFENesin ([employer] Mucus Extended Release) 600 MG 12 hr tabletIndications: Bronchitis TAKE 1 TAB TWICE DAILY NEEDED FOR COUGH/PHLEGM. DO NOT CRUSH, CHEW, OR SPLIT. 40 tablet Active DULoxetine (Cymbalta) [address] capsule TAKE 1 CAPSULE BY MOUTH EVERY DAY 90 capsule 3 024 08/02 Discontinued( Reorder (will not trigger notification to Pharmacy)) rosuvastatin (Crestor) 20 MG tabletIndications: Type 2 diabetes mellitus with diabetic polyneuropathy, with long-term current use of insulin ([facility]) Take 1 tablet by mouth once daily 90 tablet 1 024 08/01 Discontinued( Reorder (will not trigger notification to Pharmacy)) guaiFENesin (Mucinex) 600 MG 12 hr tabletIndications: Bronchitis 1 tab twice daily as needed for cough/phlegm. Do not crush, chew, or split. 60 tablet 025 08/24 Discontinued oxyCODONE-acetamin ophen (Percocet) 5-325 MG tabletIndications: Chronic back pain, unspecified back location, unspecified back pain laterality Take 1 tablet by mouth every 12 (twelve) hours if needed for severe pain for up to 28 days. Do not start before July 16, 2024. 56 tablet 025 08/16 Discontinued( Reorder (will not trigger notification to [...] Plan (12/12/2023 4:47 AM EDT): -Seen by ceramic painter on 03/30/23 -Received lumbar facet block bilateral on 04/28/22 -Received DEE L5-S1 on 04/19/23 -Continue judicious use of oxycodone-APAP and pregabalin -Continue topical diclofenac Assessment & Plan (12/12/2023 4:55 AM EDT): >>ASSESSMENT AND PLAN FOR LUMBOSACRAL RADICULOPATHY WRITTEN ON 06/04/2023 5:53 AM BY PATITO GIVENS MD -Seen by ceramic painter on 03/30/23 -Received lumbar facet block bilateral on 04/28/22 -Received DEE L5-S1 on 04/19/23 -Continue judicious use of oxycodone-APAP and pregabalin -Continue topical diclofenac >>ASSESSMENT AND PLAN FOR LUMBAR RADICULOPATHY WRITTEN ON 06/02/2023 9:43 AM BY LINDA LIND Seasonal allergies 05/03/2023 Assessment & Plan (12/12/2023 [...] 5:48 PM EDT): - last lipid profile: 8/24/23 TC 207; TG 100; HDL 51; LDL [...] by Dr. Stratton in 2014 - Cured Gallbladder sludge 11/05/2022 Current use [...] (08/30/2023 2:37 PM EDT): - Followed by GI, last appt [...] AM EDT): - recommended to check with ceramic painter if she can receive steroid injection Chronic interstitial cystitis 08/14/2012 Assessment & Plan (08/30/2023 2:38 PM EDT): -Followed by urologist [facility], last seen on 02/22/22 -Prescribed tamsulosin, no longer taking Assessment & Plan (04/02/2023 6:05 AM EST): -Followed by urologist [facility] [place], last seen on 02/22/22 -Prescribed tamsulosin, no longer taking Assessment & Plan (05/14/2022 5:02 PM EST): -Followed by urologist [facility] [place], last seen on 02/22/22 -Prescribed tamsulosin Chronic low back pain 08/14/2012 Assessment & Plan (12/12/2023 4:52 AM EDT): -Seen by ceramic painter on 02/11/23 -Received lumbar facet block bilateral on 04/28/22 -Received DEE L5-S1 on 04/19/23 -Continue judicious use of oxycodone-APAP and pregabalin -Continue topical diclofenac -Continue following with ceramic painter -Encouraged to continue PT Assessment & Plan (08/30/2023 2:41 PM EDT): -Seen by ceramic painter on 02/11/23 -Received lumbar facet block bilateral on 04/28/22 -Received DEE L5-S1 on 04/19/23 -Continue judicious use of oxycodone-APAP and pregabalin -Continue topical diclofenac -Continue following with ceramic painter -Encouraged to continue PT Assessment & Plan (06/04/2023 6:04 AM EST): -Seen by ceramic painter on 02/11/23 -Received lumbar facet block bilateral on 04/28/22 -Received DEE L5-S1 on 04/19/23 -Continue judicious use of oxycodone-APAP and pregabalin -Continue topical diclofenac -Continue following with ceramic painter -Encouraged to continue PT Assessment & Plan (04/02/2023 6:10 AM EST): -Seen by ceramic painter on 02/11/23 -Received lumbar facet block bilateral on 04/28/22 -Scheduled for DEE L5-S1 soon -Continue judicious use of oxycodone-APAP and pregabalin -Continue topical diclofenac Assessment & Plan (01/10/2023 5:38 PM EDT): -Seen by ceramic painter on 12/16/22, yet mainly for left knee pain -Received lumbar facet block bilateral on 04/28/22 -Continue judicious use of oxycodone-APAP and pregabalin -Continue topical diclofenac Assessment & Plan (12/26/2022 5:36 AM EDT): -Seen by ceramic painter on 02/04/22. -Received lumbar facet block bilateral on 04/28/22 Assessment & Plan (05/14/2022 5:00 PM EST): -Seen by ceramic painter on 02/04/22. -Received lumbar facet block bilateral on 04/28/22 Hypertension 11/25/2011 Assessment & Plan (03/27/2024 3:57 PM EST): -Goal BP < 140/90 per JNC-8 and < 130/80 per ACC/AHA guideline (Treatment threshold >= 130/80 ) -History of questionable medication adherence -In a setting of chronic pain -Co-managed with pharmacist, crating and moving estimator, and combat control -s/p 24-hour BP monitoring by nephrology; recommended sleep study and increased metoprolol -Continue checking home BP -Continue working on lifestyle modification -Continue metoprolol succinate 75 mg daily -Continue Valsartan to 320mg daily -Treatment Hx: lisinpril was discontinued due to cough;Losartan was self- discontinued due to dry mouth; amlodipine was self-discontinued due to dry mouth; metoprolol was increased by combat control from 50 mg to 75 mg. Recently BP has been stable, so Flight Security Specialist tapered Metoprolol down to 25 mg, but pt started to have palpitations and self increased back to 50 mg. Assessment & Plan (12/12/2023 4:46 AM EDT): -Goal BP < 140/90 per JNC-8 and < 130/80 per ACC/AHA guideline (Treatment threshold >= 130/80 ) -History of questionable medication adherence -In a setting of chronic pain -Co-managed with pharmacist, crating and moving estimator, and combat control -s/p 24-hour BP monitoring by nephrology; recommended sleep study and increased metoprolol -Continue checking home BP -Continue working on lifestyle modification -Continue metoprolol succinate 75 mg daily -Continue Valsartan to 320mg daily -Treatment Hx: lisinpril was discontinued due to cough;Losartan was self- discontinued due to dry mouth; amlodipine was self-discontinued due to dry mouth; metoprolol was increased by combat control from 50 mg to 75 mg Assessment & Plan (08/30/2023 2:37 PM EDT): -Goal BP < 140/90 per JNC-8 and < 130/80 per ACC/AHA guideline (Treatment threshold >= 130/80 ) -Questionable medication adherence -Co-managed with pharmacist and crating and moving estimator -Continue checking home BP -Continue working on [...] -Questionable medication adherence -Co-managed with pharmacist and crating and moving estimator -Continue checking home BP -Continue working on [...] -Questionable medication adherence -Co-managed with pharmacist and crating and moving estimator -Continue checking home BP -Continue working on [...] Plan (03/27/2024 3:55 PM EST): -Followed by [facility] pulmonology, last seen on 03/28/23, switched mometasone / formoterol (Dulera) to budesonide / formoterol (Symbicort) -Questionable adherence to medications according to refill history, she is unaware of budesonide / formoterol (Symbicort) prescription -Reviewed her medications today and discussed about the importance of adherence; Advised to scrap picker her budesonide / formoterol (Symbicort) and get her lab done prior to next appointment with manager transport -Currently prescribed budesonide / formoterol (Symbicort) and tiotropium (Spiriva) as maintenance -Continue albuterol HFA prn as rescue -Treatment Hx: Previously on fluticasone (Flovent), which was changed to mometasone / formoterol (Dulera). Mometasone / formoterol (Dulera) was changed to budesonide / formoterol (Symbicort) most recently -Reviewed the importance of medication adherence and recommended to contact pharmacist and manager transport for clarification of currently prescribed inhalers. Assessment & Plan (12/06/2023 1:45 PM EDT): -Followed by [facility] pulmonology, last seen on 03/28/23, switched mometasone / formoterol (Dulera) to budesonide / formoterol (Symbicort) -Questionable adherence to medications according to refill history, she is unaware of budesonide / formoterol (Symbicort) prescription -Reviewed her medications today and discussed about the importance of adherence; Advised to scrap picker her budesonide / formoterol (Symbicort) and get her lab done prior to next appointment with manager transport -Currently prescribed budesonide / formoterol (Symbicort) and tiotropium (Spiriva) as maintenance -Continue albuterol HFA prn as rescue -Treatment Hx: Previously on fluticasone (Flovent), which was changed to mometasone / formoterol (Dulera). Mometasone / formoterol (Dulera) was changed to budesonide / formoterol (Symbicort) most recently -Reviewed the importance of medication adherence and recommended to contact pharmacist and manager transport for clarification of currently prescribed inhalers. Assessment & Plan (08/30/2023 2:37 PM EDT): -Followed by [facility] pulmonology, last seen on 03/28/23, switched mometasone / formoterol (Dulera) to budesonide / formoterol (Symbicort) -Questionable adherence to medications according to refill history, she is unaware of budesonide / formoterol (Symbicort) prescription -Reviewed her medications today and discussed about the importance of adherence; Advised to scrap picker her budesonide / formoterol (Symbicort) and get her lab done prior to next appointment with manager transport -Currently prescribed budesonide / formoterol (Symbicort) and tiotropium (Spiriva) as maintenance -Continue albuterol HFA prn as rescue -Treatment Hx: Previously on fluticasone (Flovent), which was changed to mometasone / formoterol (Dulera). Mometasone / formoterol (Dulera) was changed to budesonide / formoterol (Symbicort) most recently -Reviewed the importance of medication adherence and recommended to contact pharmacist and manager transport for clarification of currently prescribed inhalers. Assessment & Plan (06/04/2023 5:58 AM EST): -Followed by [facility] pulmonology, last seen on 03/28/23, switched mometasone / formoterol (Dulera) to budesonide / formoterol (Symbicort) -Questionable adherence to medications according to refill history, she is unaware of budesonide / formoterol (Symbicort) prescription -Reviewed her medications today and discussed about the importance of adherence; Advised to scrap picker her budesonide / formoterol (Symbicort) and get her lab done prior to next appointment with manager transport -Currently prescribed budesonide / formoterol (Symbicort) and tiotropium (Spiriva) as maintenance -Continue albuterol HFA prn as rescue -Treatment Hx: Previously on fluticasone (Flovent), which was changed to mometasone / formoterol (Dulera). Mometasone / formoterol (Dulera) was changed to budesonide / formoterol (Symbicort) most recently -Reviewed the importance of medication adherence and recommended to contact pharmacist and manager transport for clarification of currently prescribed inhalers. Assessment & Plan (04/02/2023 5:57 AM EST): -Followed by [facility] pulmonology, last seen on 11/30/21 -Questionable adherence to medications according to refill history -Reviewed her medications today and discussed about the importance of adherence -Continue mometasone / formoterol (Dulera) and tiotropium (Spiriva) as maintenance -Continue albuterol HFA prn as rescue -Urged to schedule appt with manager transport; pt verbalized understanding Assessment & Plan (01/10/2023 2:06 PM EDT): -Followed by [facility] pulmonology, last seen on 11/30/21 -Questionable adherence to medications according to refill history -Reviewed her medications today and discussed about the importance of adherence -Continue Dulera and Spiriva as maintenance -Continue albuterol HFA prn as rescue -Consider referring to MTM -Urged to schedule appt with manager transport; pt verbalized understanding Assessment & Plan (12/26/2022 5:30 AM EDT): -Followed by [facility] pulmonology, last seen on 11/30/21 -Questionable adherence to medications according to refill history -Reviewed her medications today and discussed about the importance of adherence -Continue Dulera and Spiriva as maintenance -Continue albuterol HFA prn as rescue -Consider referring to MTM -Urged to schedule appt with manager transport; pt verbalized understanding Assessment & Plan (08/09/2022 5:23 AM EDT): -Followed by [facility] pulmonology, last seen on 11/30/21 -Reviewed her medications today and discussed about the importance of adherence -Continue Dulera and Spiriva as maintenance - Continue albuterol HFA prn as rescue -Consider referring to MTM Assessment & Plan (05/14/2022 4:42 PM EST): -Followed by [facility] pulmonology, last seen on 11/30/21 -Mild wheezing today -Pt is being prescribed Dulera and Spiriva as maintanance, but patient is uncertain and medication refill history suggests questionable adherence. -Consider referring to [facility] Type 2 diabetes mellitus 09/20/2011 [...] FreeStyle Rachael -Last eye exam: 05/14/21 at [facility] eye care, no retinopathy -Last foot exam: 10/20/21 -Last microalbumin test: 10/20/21 UACR 12 Last lipid profile: 10/20/21 TC 197; 142; HDL 64; LDL 108. Last dental exam: Immunizations: up to date Knee pain 09/20/2011 Assessment & Plan (06/02/2023 9:41 AM EST): - Following with [facility] Seconds Handler, last seen in Jan 2023 - XR on 12/16/22 showed : mild Osteoarthritis - Received intraarticular Euflexxa (hyaluronate derivative) Injection x 3 doses in 2022 - Continue current Tx plan per ceramic painter Assessment & Plan (04/02/2023 6:14 AM EST): - Following with [facility]s Handler, last seen in Jan 2023 - XR on 12/16/22 showed : mild Osteoarthritis - Received intraarticular Euflexxa (hyaluronate derivative) Injection x 3 doses in 2022 - Continue current Tx plan per ceramic painter Assessment & Plan (01/10/2023 5:41 PM EDT): - Following with [facility]s [facility], last seen on 12/16/22, started on Euflexxa injection - XR on 12/16/22 showed : mild Osteoarthritis - Currently receiving intraarticular Euflexxa (hyaluronate derivative) Injection - Continue current Tx plan per ceramic painter Resolved Problems Problem Noted Date Diagnosed [...] Encounters Date Type Department Care Team Description 08/24/2024 Refill [facility] [address] [place] [address] Adali Stovall, ANP Bronchitis 08/16/2024 Refill [facility] [address] [place] [address] Tosha Phillips RN Chronic back pain, unspecified back location, unspecified back pain laterality 08/16/2024 Telephone [facility] [address] [place] [address] Patito Givens MD Med Refill 08/02/2024 Refill [facility] [address] [place] [address] Shelbie Mcrae RN 08/01/2024 Travel 07/11/2024 Refill [facility] [address] [place] [address] Tosha Phillips RN Chronic back pain, unspecified back location, unspecified back pain laterality 07/11/2024 Telephone [facility] [place] [address] Patito Givens MD Med Refill 07/06/2024 10:30 AM EDT Clinical Support [facility] [place] [address] Tosha Phillips RN Chronic bilateral low back pain, unspecified whether sciatica present (Primary Dx); Long-term current use of opiate analgesic 07/06/2024 Orders Only [facility] [place] [address] Patito Givens MD 07/06/2024 Refill [facility] [address] [place] [address] Tosha Phillips RN Type 2 diabetes mellitus with both eyes affected by mild nonproliferative retinopathy without macular edema, with long-term current use of insulin ([facility]) 07/06/2024 Telephone [facility] [address] [place] [address] Tosha Phillips RN 07/06/2024 Travel 06/29/2024 Orders Only GENERIC EXTERNAL DATA DEPARTMENT Provider, Generic External Data 06/22/2024 Telephone [facility] [place] [address] Patito Givens MD Appointment Request 06/22/2024 Telephone [facility] [place] [address] Patito Givens MD No Show (Patient no show for Pre-op appt ) 06/13/2024 Refill [facility] [place] [address] Patito Givens MD Chronic back pain, unspecified back location, unspecified back pain laterality 06/11/2024 Travel 06/07/2024 Telephone [facility] [place] [address] Patito Givens MD Chart Prep from Last 3 Months Immunizations Immunization Administration Dates Next Due Influenza injectable quadriv alent IIV4 with preservative 02/24/2018 Influenza injectable quadriv alent preservative free 01/10/2023,01/05/2022,02/06/2021,01/16,02/12/2019,02/06/2017 Influenza, IIV3, injectable 03/08/2023,1 ,12/31/2020,01/16,01/23/2018,01/03/2014,01/28/2011 Influenza, seasonal, injecta ble, preservative free 03/12/2024 Pfizer Covid-19 Vaccine 12+ 03/21/2023, Pfizer Covid-19 Vaccine 12+ huey-sucrose (Long Cap) [...] Sign Reading Time Taken Comments Blood Pressure 120/74 08/01/2024 2:41 PM EDT Pulse 74 08/01/2024 2:41 PM EDT Temperature 36.6 ??C (97.8 ??F) 06/01/2024 11:43 [...] Description 09/04/2024 1:30 PM EDT Office Visit [facility] [address] [place] [address] Patito Givens MD [address] [place] [address] 09/11/2024 11:00 AM EDT Office Visit [facility] [address] [place] [address] 10/12/2024 2:30 PM EDT Office Visit [facility] [address] [place] [address] Jessica Srivastava, OD [address] [place] [address] 10/31/2024 2:00 PM EDT Medication Management [facility] [address] [place], [place] [id number] Wilber Christie, PharmD [address] [place] [address] Health Maintenance Due Date Last Done Comments CT Colonography 1965 FIT DNA/Cologuard 1965 FIT 1965 FOBT 1965 HIV Screening 1965 Sigmoidoscopy 1965 Hepatitis A Vaccines (1 of 2 - Risk 2-dose series) 1984 Pap Smear 1986 Cervical Cancer Screening 1995 HPV/Cotest 1995 Diabetes: Urine Protein Screening 12/10/2023 12/09/2022, 10/20/2021, 01/24/2020 COVID-19 Vaccine ( season) 2023 03/21/2023, 01/19/2022, 09/25/2021, Additional history exists Eye Exam 06/26/2024 06/27/2023, 06/16, 06/27/2023, Additional history exists Diabetes: Foot Exam 08/29/2024 08/30/2023, 08/30/2023, 08/30/2023, Additional history exists Diabetes: Hemoglobin A1C 09/08/2024 025, 03/12/2024, 12/06/2023, Additional history exists Depression Screening 12/05/2024 12/06/2023, 12/06/19 Alcohol/Substance Use Screening 03/27/2025 03/27/2024 SDOH Screening 03/27/2025 03/27/2024 Tobacco Screening 06/01/2025 06/01/2024 Lipid Panel 07/06/2025 07/06/2024, 0807/2022, 10/20/2021, Additional history exists Mammogram 03/27/2026 03/27/2024, 08/2022, 03/19/2022, Additional history exists DTaP/Tdap/Td Vaccines (3 - Td or Tdap) 01/26/2033 01/26/2023, 11/15/2012, 01/14/2005 Colonoscopy 10/18/2033 10/19/2023 Colorectal Cancer Screening 10/18/2033 RSV Patients and [...] patient's age to complete this topic Meningococcal B Vaccine Aged Out No l onger eligible based on patient's age to complete [...] 2:13 PM EST) No Wilber Christie, Kaia Procedures Procedure Name Priority Date/Time Associated Diagnosis [...] edema, with long-term current use of insulin ([facility]) BI MAMMOGRAM SCREENING TOMOSYNTHESIS BILATERAL Routine 03/27/2024 1:50 PM EST HM COLONOSCOPY Routine 10/19/2023 ALBUMIN, RANDOM URINE W/CREATININE Routine 12/09/2022 1:02 PM EDT Type 2 diabetes mellitus with diabetic polyneuropathy, with long-term current use of insulin ([facility]) from Last 3 Months or Most Recently Relevant to Health Maintenance Results * Hepatic Function Panel (07/06/2024 11:02 AM EDT) Bilirubin, Total 0.4 0.0 - 1.0 mg/dL [facility] Bilirubin, Direct 0.1 0.0 - 0.5 mg/dL [facility] Aspartate Amino Transferase 14 5 - 31 U/L [facility] Alanine Aminotransferase 11 0 - 31 U/L [facility] Total Protein 7.1 6.5 - 8.0 g/dL [facility] Albumin Level 4.0 3.5 - 5.0 g/dL [facility] Alkaline Phosphatase 75 39 - 117 U/L [facility] 07/06/2024 11:0 2 AM EDT 07/06/2024 1:13 PM EDT Patito Givens MD LAB BLOOD ORDERABLES Final Resul t Performing Organization Address [facility] Co de Phone Number [facility] [address] [place] [address] [phone] * (ABNORMAL) Lipid Panel, Standard (07/06/2024 11:02 AM EDT) Triglycerides 143 <150 mg/dL [facility] Comment:Desirable Triglyceri de: less than 150 mg/dLBorderline High Triglyceride 150-199 mg/dLHigh Triglyceride: 200-499 mg/dLVery High Triglyceride: greater than or equal to 5OO mg/dL Cholesterol 171 <200 mg/dL [facility] Comment:Desirable Cholestero l: less than 200 mg/dLBorderline High Cholesterol: 200-239 mg/dLHigh Cholesterol: greater than 239 mg/dL LDL Cholesterol Calculated 100(H) <100 mg/dL [facility] Comment:Desirable LDL: less than 100 mg/dLNear Optimal/Above Optimal LDL: 110- 129 mg/dLBorderline High LDL: 130-159 mg/dLHigh LDL: 160-189 mg/dLVery High LDL: greater than or equal to 190 mg/dL HDL Cholesterol 43 >40 mg/dL [facility] Comment:Desirable HDL: great er than 40 mg/dL Note: This HDL assay may give artificially low results in patients with liver disease. 07/06/2024 11:0 2 AM EDT 07/06/2024 1:13 PM EDT Patito Givens MD LAB BLOOD ORDERABLES Final Resul t Performing Organization Address [facility]/ZIP Co de Phone Number [facility] [address] [place] [address] [phone] * (ABNORMAL) Basic Metabolic Panel (07/06/2024 11:02 AM EDT) Sodium 141 135 - 145 mmol/L [facility] Potassium 3.5 3.3 - 5.1 mmol/L [facility] Chloride 108 96 - 108 mmol/L [facility] Carbon Dioxide 26 22 - 29 mmol/L [facility] Anion Gap 11(L) 12 - 20 [facility] Urea Nitrogen (BUN) 11 9 - 16 mg/dL [facility] Creatinine, Serum 0.66 0.5 - 1.4 mg/dL [facility] Estimated Glomerular Filt Rate >60 [facility] Comment:Chronic Kidney Disea se: Estimated GFR < 60 mL/min/1.39w4Ruqgoi Kidney Disease: Estimated GFR < 15 mL/min/1.73m2 Glucose 100 60 - 115 mg/dL [facility] Calcium 8.9 8.4 - 10.2 mg/dL [facility] 07/06/2024 11:0 2 AM EDT 07/06/2024 1:13 PM EDT Patito Givens MD LAB BLOOD ORDERABLES Final Resul t [facility] [address] [place] [phone] * POCT VINICIO-14 Urine Drug Screen (07/06/2024 10:56 AM EDT) Oxycodone Screen, Urine Positive Urine Urine specimen obtained by clean catch procedure / Unknown 07/06/2024 10:56 AM EDT Narrative Tosha Phillips RN - 07/06/2024 10:56 AM EDT .UTOX cup Lot#[id number] Exp. 12/05/25 Internal Pass Control Patito Givens MD POINT OF CARE TEST ENTER/EDIT OR DERABLES Final Result * (ABNORMAL) Basic Metabolic Panel, Fasting (06/29/2024 9:42 AM EDT) Sodium 144 135 - 145 mmol/L [facility] Potassium 3.9 3.3 - 5.1 mmol/L [facility] Chloride 112(H) 96 - 108 mmol/L [facility] Carbon Dioxide 25 22 - 29 mmol/L [facility] Anion Gap 11(L) 12 - 20 [facility] Urea Nitrogen (BUN) 10 9 - 16 mg/dL [facility] Creatinine, Serum 0.66 0.5 - 1.4 mg/dL [facility] Creatinine Clr Calc Pharmacy 77.6 [facility] Comment:Provided height and weight: 152.4 cm,65.771 kg.eGFR (calculated from the MDRD study equation) and eCrCl(calculated from the Cockcroft-Gault equation) are based ondifferent parameters and may not yield comparable results.If eCrCl result is absurd, please check patient'sheight/weight. Estimated Glomerular Filt Rate >60 [facility] Comment:Chronic Kidney Disea se: Estimated GFR < 60 mL/min/1.08n1Bgdrna Kidney Disease: Estimated GFR < 15 mL/min/1.73m2 Glucose Fasting 83 60 - 99 mg/dL [facility] Calcium 8.8 8.4 - 10.2 mg/dL [facility] 06/29/2024 9:42 AM EDT 06/29/2024 9:52 AM EDT us Generic External Data Provider LAB BLOOD ORDERAB LES Final Result [facility] [address] [place] [phone] * (ABNORMAL) CBC (06/29/2024 9:42 AM EDT) White Blood Count 7.8 4.8 - 10.8 X10*3/uL [facility] Red Blood Count 3.57(L) 4.20 - 5.50 X10*6/uL [facility] Hemoglobin 11.3(L) 12.0 - 16.0 g/dl [facility] Hematocrit 32.7(L) 37.0 - 47.0 % [facility] Mean Corpuscular Volume 91.6 80.0 - 98.0 fL [facility] Mean Corpuscular Hemoglobin 31.7 27.0 - 33.0 pg [facility] Mean Corpuscular HGB Conc 34.6 31.0 - 35.0 g/dl [facility] Red Cell Distribution Width 13.6 11.0 - 16.0 % [facility] Platelet Count 225 160 - 400 X10*3/uL [facility] Mean Platelet Volume 11.5 9.4 - 12.3 fL [facility] NRBC Pct Auto 0.0 0.0 - 0.2 /100WBC [facility] NRBC Abs Auto 0.000 0.0 - 0.012 X10*3/uL [facility] 06/29/2024 9:42 AM EDT 06/29/2024 9:52 AM EDT Generic External Data Provider LAB BLOOD ORDERAB LES Final Result Performing Organization Address [facility]/ZIP Co de Phone Number [facility] [address] [place] [phone] * Glucose, Whole Blood (06/29/2024 9:14 AM EDT) Glucose, Whole Blood 84 60 - 115 mg/dL [facility] Comment:METER #: [id number] 06/29/2024 9:14 AM EDT 06/29/2024 9:17 AM EDT Generic External Data Provider LAB BLOOD ORDERAB LES Final Result Performing Organization Address [facility] Co de Phone Number [facility] [address] [place] [phone] * (ABNORMAL) POCT HGB A1C (06/11/2024 2:13 PM EST) Hemoglobin A1C 7.8(A) 4.0 - 6.0 % QC Media Lot # [id number] Lot# Expiration Date Blood 06/11/2024 2:13 PM EST us Patito Givens MD POINT OF CARE TEST ENTER/EDIT OR DERABLES Final Result * BI Mammogram Screening Tomosynthesis Bilateral (03/27/2024 1:50 PM EST) Anatomical Region Laterality Modality Breast Bilateral Mammography 03/27/2024 1:50 PM EST Narrative 04/02/2024 3:31 PM EST ? [facility] ? [address] ?[place], [place] [address] ? Mammography Report ? Signed ? Patient: Tejada,Ameena ?MR#: [id number] ?? 33 ? : 1965 ?Acct:[id number] ? Age/Sex: 59 / F ?ADM Date: 03/27/24 ? Loc: HO.MAMMO ? Attending Dr: Patito Givens MD ? Ordering Physician: Patito Givens MD ?Results: 2Benign F ?? indings ? Date of Service: 03/27/24 ?Follow Up: 1 Year From Orig ?? inal Mammogram ? Procedure(s): MM tomosynthesis screening BI ?? Accession Number(s): [id number] ? cc: Patito Givens MD ? EXAMINATION: [...] ??Mare Cardona DO ??04/02/2024 03:28 PM EST ? Dictated By: ?Mare Cardona DO ? Signed By: ?<Electronically signed by Mare Cardona, DO in OV> ? 04/02/24 1528 ? DD/ 1350 ? TD/TT: 03/27/24 1405 ? Home Visit Field Care Manager: ? Procedure Note Brenda, Image - 04/02/2024 Antonio [facility] [address] [place] [address] Mammography Report Signed Patient: King Tejada#: [id number] 33 : 1965Acct:[id number] Age/Sex: 59 / FADM Date: 03/27/24 Loc: JIM Attending Dr: Patito Givens MD Ordering Physician: Patito Givensesults: 2Benign F indings Date of Service: 03/27/24Follow Up: 1 Year From Orig inal Mammogram Procedure(s): MM tomosynthesis screening BI Accession Number(s): [id number] cc: Patito Givens MD EXAMINATION: MM SCREENING [...] by: Mare Cardona DO 04/02/2024 03:28 PM [facility] Dictated By: Mare Cardona DO Signed By: <Electronically signed by Mare Cardona DO in OV> 04/02/24 1528 DD/ 1350 TD/TT: 03/27/24 1405 Home Visit Field Care Manager: Patito Givens MD IM BI PROCEDURES Edited Result - Final * Hm Colonoscopy (10/19/2023) Colonoscopy Normal Normal Narrative Christine Ramirez - 10/19/2023 Recommended 10 year follow up . see external hospital admission note on 10/19/2023 Historical Provider HEALTH MAINTENANCE Final Result * Albumin, Random Urine W/Creatinine (12/09/2022 1:02 PM EDT) Creatinine, Urine 170.12 mg/dL [facility] Microalbumin Urine 15.0 mg/L [facility] Microalbum Creatinine Ratio Ur 8.8 <30 ug/mg cr [facility] Comment:Albumin/Creatinine R atio Reference Ranges: Normal: < 30 ug/mg creatinine Microalbuminuria: 30 - 300 ug/mg creatinineClinical Albuminuria: > 300 ug/mg creatinine Urine 12/09/2022 1:02 PM EDT 12/09/2022 3:56 PM EDT Patito Givens MD LAB URINE ORDERABLES Final Resul t [facility] [address] [place] [address] [phone] from Last 3 Months or Most Recently Relevant to Health Maintenance Insurance JOSE CALVERT [id number] Care Teams Sofa Inspector Relationship Specialty Start Date End Date Patito Givens MD [address] [place] [address] PCP - General Family Medicine 11/13/18 Wilber Christie, PharmD [address] [place] [phone] Pharmacist Internal Medicine 01/28/23
--- OUTSIDE RECORDS SUMMARY | 2024-08-30 14:21 | XMS_ITS | Encounter Summary ---
Author Organization [employer] Address [address] [employer] [employer] [address] 7t [place] [address] Care Team Providers Care Aircraft Load Controller Name Role Phone Patito Wilhelm MD Primary Care Provider [phone] Wilber Christie PharmD Unavailable [phone] Reason for Visit * Reason Onset Date Comments Appointment Request 10/24/2023 Encounter Details Date Type Department Care Team ([facility] st Contact Info) Description 10/24/2023 Telephone [facility] [address] [place], [place] [phone] Patito Wilhelm MD [address] [place] [address] Appointment Request Social History Tobacco Use Types [...] Description 09/04/2024 1:30 PM EDT Office Visit [facility] [address] [place] [phone] Patito Wilhelm MD [address] [place] [address] 09/11/2024 11:00 AM EDT Office Visit [facility] [address] [place] [address] 10/12/2024 2:30 PM EDT Office Visit [facility] [address] [place] [address] Jessica Srivastava, OD [address] [place] [address] 10/31/2024 2:00 PM EDT Medication Management [facility] [address] [place] [address] Wilber Christie, PharmD [address] [place] [address] documented as of this encounter Goals Goal [...] documented as of this encounter Care Teams Aircraft Load Controller Relationship Specialty Start Date End Date Patito Wilhelm MD [address] [place] [address] PCP - General Family Medicine 11/13/18 Wilber Christie PharmD [address] [place] [address] Pharmacist Internal Medicine 01/28/23 documented as of this encounter
--- OUTSIDE RECORDS SUMMARY | 2024-08-30 14:21 | XMS_ITS | Encounter Summary ---
Author Organization [employer] Address [address] [facility] 7t [place] [address] Care Team Providers Care High Man Name Role Phone Patito Wilhelm MD Primary Care Provider [phone] Wilber Christie PharmD Unavailable Reason for Referral * Consultation (Routine) - Pending Review Specialty Diagnoses / Procedures Referred By Tahir daly Referred To Contact Pharmacy Diagnoses Primary hypertension Type 2 diabetes mellitus with both eyes affected by mild nonproliferative retinopathy without macular edema, with long-term current use of insulin (CMS/HCC) Patito Wilhelm MD [address] [place] [phone] Phone: tel: fax: Referral ID Status Reason Start Date Expiration Date Visits Requested Visits Authorized [id number] Pending Review Consult and Treat 4 02/08/2025 6 6 Encounter Details Date Type Department Care Team (Late st Contact Info) Description 02/09/2024 Orders Only [facility] [address] [place] [address] [phone] Patito Wilhelm MD [address] [place], [place] [phone] Primary hypertension (Primary Dx); Type 2 diabetes [...] Description 09/04/2024 1:30 PM EDT Office Visit [facility] [address] [place] [address] Patito Wilhelm MD [address] [place] [phone] 09/11/2024 11:00 AM EDT Office Visit [facility] [address] [place] [address] [phone] 10/12/2024 2:30 PM EDT Office Visit [facility] [address] [place] [address] Jessica Srivastava, OD [address] [place] [address] 10/31/2024 2:00 PM EDT Medication Management [facility] [address] [place] [address] Wilber Christie PharmD [address] [place], [place] Scheduled Referrals Name Type Priority Associated Diagnoses Orde r Schedule Referral to Pharmacy CDTM Outpatient Referral Routine Primary hypertension Type 2 diabetes mellitus with both eyes affected by mild nonproliferative retinopathy without macular edema, with long-term current use of insulin ([facility]) Ordered: 02/09/2024 documented as of this encounter [...] edema, with long-term current use of insulin ([facility]) documented in this encounter Additional Health Concerns Assessment Noted Time PHQ-9 Depression Total Score: 11 12/05/ 024 1:39 PM EDT documented as of this encounter Care Teams High Man Relationship Specialty Start Date End Date Patito Wilhelm MD [address] [place], [place] PCP - General Family Medicine 11/13/18 Wilber Christie PharmD [address] [place] [address] Pharmacist Internal Medicine 01/28/23 documented as of this encounter
--- OUTSIDE RECORDS SUMMARY | 2024-08-30 14:21 | XMS_ITS | Encounter Summary ---
Author Organization [employer] Address [address] [facility] 7t [place] [address] Care Team Providers Care Cnc Programmer Name Role Phone Patito Wilhelm MD Primary Care Provider [phone] Wilber Christie PharmD Unavailable [phone] Encounter Details Date Type Department Care Team ([facility] Contact Info) Description 09/01/2022 Telephone [facility] [address] [place], [place] [phone] Emiyl Luu RN Social History Tobacco Use Types Packs/Day Years [...] Upcoming Encounters Date Type Department Care Team ([facility] Contact Info) Description 09/04/2024 1:30 PM EDT Office Visit [facility] [address] [place] [address] Patito Wilhelm MD [address] [place] [address] 09/11/2024 11:00 AM EDT Office Visit [facility] [address] [place] [address] 10/12/2024 2:30 PM EDT Office Visit [facility] [address] [place] [address] Atif, Jessica, OD [address] [place] [address] 10/31/2024 2:00 PM EDT Medication Management [facility] [address] [place] [address] Wilber Christie, PharmD [address] [place] [address] documented as of this encounter Visit Diagnoses Not on filedocumented in this encounter Additional Health Concerns Assessment Noted Time PHQ-9 Depression Total Score: 6 07/27/19 23 1:10 PM EDT documented as of this encounter Care Teams Cnc Programmer Relationship Specialty Start Date End Date Patito Wilhelm MD [address] [place] [address] PCP - General Family Medicine 11/13/18 Wilber Christie, PharmD [address] [place] [address] Pharmacist Internal Medicine 01/28/23 documented as of this encounter
--- OUTSIDE RECORDS SUMMARY | 2024-08-30 14:21 | XMS_ITS | Encounter Summary ---
Author Organization [employer] Address [address] [facility] 7t [place] [address] Care Team Providers Care Measurer Name Role Phone Patito Wilhelm MD Primary Care Provider Wilber Christie PharmD Unavailable [phone] Reason for Visit * Reason Comments Med Refill Encounter Details Date Type Department Care Team ([facility] st Contact Info) Description 03/27/2024 Refill [facility] [address] [employer], [place] [phone] Patito Wlihelm MD [address] [place], [place] [phone] Type 2 diabetes mellitus with diabetic polyneuropathy, with long-term current use of insulin ([facility]) Social History Tobacco Use Types [...] Description 09/04/2024 1:30 PM EDT Office Visit [facility] [address] [place] [address] Patito Wilhelm MD [address] [place] [address] 09/11/2024 11:00 AM EDT Office Visit [facility] [address] [place] [address] 10/12/2024 2:30 PM EDT Office Visit [facility] [address] [place] [phone] Jessica Srivastava, OD [address] [place] [address] 10/31/2024 2:00 PM EDT Medication Management [facility] [address] [place] [address] Wilber Christie, PharmD [address] [place] [address] documented as of this encounter Goals Goal [...] polyneuropathy, with long-term current use of insulin ([facility]) documented in this encounter Additional Health Concerns Assessment Noted Time PHQ-9 Depression Total Score: 11 024 1:39 PM EDT documented as of this encounter Care Teams Measurer Relationship Specialty Start Date End Date Patito Wilhelm MD [address] [place] [phone] PCP - General Family Medicine 11/13/18 Wilber Christie PharmD [address] [place] [address] Pharmacist Internal Medicine 01/28/23 documented as of this encounter
--- OUTSIDE RECORDS SUMMARY | 2024-08-30 14:21 | XMS_ITS | Encounter Summary ---
Author Organization [employer] Address [address] [facility] 7t [place] [address] Care Team Providers Care Trench Pipe Layer Helper Name Role Phone Patito Wilhelm MD Primary Care Provider [phone] Wilber Christie PharmD Unavailable [phone] Reason for Visit * Reason Onset Date Comments Med Refill 04/06/2023 Encounter Details Date Type Department Care Team (Late st Contact Info) Description 04/06/[address] [facility] [address] [place], [place] [phone] Patito Wilhelm MD [address] [place], [place] [phone] Med Refill Social History Tobacco Use Types [...] (Percocet) 5-325 MG tablet Please sent to [facility]/pharmacy #[id number] [place], [place] - [address] [place] [address] documented in this encounter Plan of Treatment Upcoming Encounters Date Type Department Care Team (Late st Contact Info) Description 09/04/2024 1:30 PM EDT Office Visit [facility] [address] [place] [address] Patito Wilhelm MD [address] [place] [address] 09/11/2024 11:00 AM EDT Office Visit [facility] [address] [place] [address] 10/12/2024 2:30 PM EDT Office Visit [facility] [address] [place] [address] Jessica Srivastava, NIKKY 230 [place] [address] 10/31/2024 2:00 PM EDT Medication Management [facility] [address] [place] [address] Wilber Christie, PharmD [address] [place] [address] documented as of this encounter Goals Goal [...] documented as of this encounter Care Teams Trench Pipe Layer Helper Relationship Specialty Start Date End Date Patito Wilhelm MD [address] [place] [address] PCP - General Family Medicine 11/13/18 Wilber Christie, PennyD [address] [place] [address] Pharmacist Internal Medicine 01/28/23 documented as of this encounter
--- OUTSIDE RECORDS SUMMARY | 2024-08-30 14:21 | XMS_ITS | Encounter Summary ---
Author Organization [employer] Address [address] [facility] 7t [place] [address] Care Team Providers Care Dental Ceramist Name Role Phone Patito Wilhelm MD Primary Care Provider [phone] Wilber Christie PharmD Unavailable [phone] Encounter Details Date Type Department Care Team (Latest Contact Info) Description 03/24/2020 Abstract [facility] Dental, Provider, DDS Social History Tobacco [...] Description 09/04/2024 1:30 PM EDT Office Visit [facility] [address] [place] [phone] Patito Wilhelm MD [address] [place] [address] 09/11/2024 11:00 AM EDT Office Visit [facility] [address] [place] [address] 10/12/2024 2:30 PM EDT Office Visit [facility] [address] [place] [address] [phone] Jessica Srivastava OD 230 [place], [place] [phone] 10/31/2024 2:00 PM EDT Medication Management [facility] [address] [place], [place] [phone] Wilber Christie, PharmD 230 [place], [place] [phone] documented as of this encounter Visit Diagnoses Not on filedocumented in this encounter Care Teams Dental Ceramist Relationship Specialty Start Date End Date Patito Wilhelm MD [address] [place] [address] [phone] PCP - General Family Medicine 11/13/18 Wilber Christie, PharmD [address] [place] [address] [phone] Pharmacist Internal Medicine 01/28/23 documented as of this encounter
--- OUTSIDE RECORDS SUMMARY | 2024-08-30 14:21 | XMS_ITS ---
Author Organization [facility] Address [address] [place] [address] Care Team Providers Care Commutator Repairer Name Role Phone Choco GANDHI, Patito Primary Care Provider Leonardo Harding [facility] [phone] REASON FOR VISIT Patient presents today for hepatitis c Encounters Encounter Location Date Provider Diagnosis [facility] [address] [place] [address] 07/19/2024 Leonardo Stratton Plan Of Treatment No Information Progress Notes * ANDERSON NASSARB: 5 (59 yo F)Acc No.[id number]:07/19/2024 Progress Notes Patient:?JAMEL NASSAR Provider:?Leonardo Stratton MD :1965???Age:59 Y???Sex:Female D ate:07/19/2024 Address:[address] [place] [address] [address] [facility] Pcp:Patito Wilhelm MD Subjective: * Chief Complaints: * ???1. Patient presents today for hepatitis c. * Medical History:? Objective: * Vitals:? Assessment: Plan: * Treatment: * * The named appointment provid er may or may not be the originator of this progress note, and it is not deemed complete until electronically signed by the appointment provider. Sign off status: Pending * Provider:?Leonardo Stratton MD Date:? 025 Generated for Nory funk/Eulalia/eTransmitting on:?08/30/2024 02:21 PM EDT
--- OUTSIDE RECORDS SUMMARY | 2024-08-30 14:21 | XMS_ITS | Encounter Summary ---
Author Organization [employer] Address [address] [facility] 7t [place] [address] Care Team Providers Care Java Web Services Developer Name Role Phone Patito Wilhelm MD Primary Care Provider Wilber Christie PharmD Unavailable [phone] Encounter Details Date Type Department Care Team (Latest Contact Info) Description 02/21/[address] [facility] Dental, Provider, DDS Social History [...] 1:30 PM EDT Office Visit [facility] [address] [place] [phone] Patito Wilhelm MD [address] [place] [address] 09/11/2024 11:00 AM EDT Office Visit [facility] [address] [place] [address] 10/12/2024 2:30 PM EDT Office Visit [facility] [address] [place] [address] [phone] Jessiac Srivastava OD 230 [place], [place] [phone] 10/31/2024 2:00 PM EDT Medication Management [facility] [address] [place], [place] [phone] Wilber Christie, PharmD [address] [place], [place] [phone] documented as of this encounter Visit Diagnoses Not on filedocumented in this encounter Care Teams Java Web Services Developer Relationship Specialty Start Date End Date Patito Wilhelm MD [address] [place] [address] [phone] PCP - General Family Medicine 11/13/18 Wilber Christie, PharmD [address] [place] [address] [phone] Pharmacist Internal Medicine 01/28/23 documented as of this encounter
[2024-08-30] MEDS: iohexoL 350 MG/ML 100 ML INFUS..BTL IV (16:42)
[2024-08-30] MEDS: Barium Sulfate Oral (Vanilla) 450 ML ORAL.SUSP 900 ML PO (16:42)
[2024-08-31 08:14] LABS: Creatinine POC 0.7 mg/dL (0.5-1.4); GFR POC > 60
== END 2024-08-30 13:44 | disposition home or self-care (01) ==
LOC: HO.CT 13:43
PROVIDERS: PCP Family Medicine; Visit Provider Family Medicine
DX: R10.84 Generalized abdominal pain (principal); K46.9 Unspecified abdominal hernia without obstruction or gangrene
CPT/HCPCS: 74177; 82565; Q9967

== ENCOUNTER → 2024-08-30 13:46 | Outpatient (BNV) | payer OTHER, SELFPAY | PROVIDERS: PCP Family Medicine; Visit Provider Radiology Diagnostic Radiology | DX: K43.9 Ventral hernia without obstruction or gangrene (principal) | CPT/HCPCS: 74177 ==

== ENCOUNTER 2024-09-12 10:43 | Outpatient (AMB) | payer OTHER, SELFPAY ==
--- NOTE | 2024-09-12 10:46 | A.OFFVIS_ITS ---
Vital Signs 09/12/24 10:50 Height 5 ft Weight 145 lb BMI 28.3 Intake Visit Reasons: PO LT Shoulder 06/29/24 Intake Note: Ameena is a 59 year old female who presents today post-operatively after undergoing left shoulder arthroscopic surgery on 06/29/24. At their last pot- operative visit patient was advised to continue with her home stretching program. The patient states that she is interested in going to formal physical therapy. She continues taking Celebrex to help her pain. She denies any fevers or chills. Allergies rosiglitazone [Avandia] Allergy (Severe, Verified 09/12/24 10:49) rash/hepatitis C cyclobenzaprine [From FLEXERIL] Allergy (Intermediate, Verified 09/12/24 10:49) HIVES latex [LATEX] Allergy (Intermediate, Verified 09/12/24 10:49) RASH azithromycin [From Zithromax] Allergy (Mild, Verified 09/12/24 10:49) SWELLING glipizide [From Glucotrol] Allergy (Mild, Verified 09/12/24 10:49) SWELLING levofloxacin [From Levaquin] Allergy (Mild, Verified 09/12/24 10:49) leg swelling aspirin [Aspirin] Allergy (Unknown, Verified 09/12/24 10:49) reaction unknown-was years ago Flexeril Allergy (Severe, Uncoded 09/12/24 10:49) Rash Medication List - Last Reconciled 09/12/24 by Pravin Guardado MD acetaminophen 500 mg PO Q6H PRN albuterol sulfate 90 mcg/actuation 2 puffs inhalation Q4-6H PRN azelastine 1 spray intranasal DAILY PRN budesonide-formoterol 160-4.5 mcg/actuation (Symbicort) 2 puffs inhalation BID celecoxib (Celebrex) 200 mg PO Q12H PRN cholecalciferol (vitamin D3) 50 mcg PO DAILY dicyclomine 10 - 20 mg PO Q6H PRN insulin asp prt-insulin aspart 100 unit/mL (70-30) (Novolog Mix 70-30FlexPen U- 100) 25 units subcut BID meclizine 25 mg PO TID PRN metoprolol succinate ER 75 mg PO BEDTIME montelukast 10 mg PO QPM naloxone 4 mg/actuation 1 spray intranasal DAILY nitroglycerin 0.4 mg sublingual Q5M PRN nystatin 1 appl topical BID PRN omeprazole 20 mg PO DAILY pregabalin 75 mg PO BID semaglutide (Ozempic) 2 mg subcut QWEEK valsartan-hydrochlorothiazide 320-25 mg 1 tab PO DAILY vitamin B complex (Vitamins B Complex tablet) 1 tab PO DAILY PFSH Medical History NIKI (obstructive sleep apnea) Bronchitis Lumbar radiculopathy Obesity Macromastia Meralgia paraesthetica Insomnia Palpitations Arthritis Back pain Diabetes History of abdominal hernia GERD (gastroesophageal reflux disease) Irritable bowel syndrome Interstitial cystitis Jaundice Hepatitis C Depression Neuropathy Numbness History of headache Vertigo Asthma Elevated cholesterol HTN (hypertension) Subcutaneous mass of left foot Calcaneal spur, unspecified foot Hernia Surgical History Hx of arthroscopy of shoulder Hx of hysterectomy Hx of elbow surgery Hx of removal of cyst Hx of foot surgery Hx of section History of bladder surgery H/O colonoscopy History of cholecystectomy History of carpal tunnel surgery of right wrist History of carpal tunnel surgery of left wrist H/O tubal ligation History of repair of rotator cuff History of liver biopsy Family History Father Gastric cancer Mother Coronary disease Social History Are you a primary child care group leader to a significant other at home: No Do you presently have visiting nurse or other home services: No Alcohol intake: never Patient Tobacco Use Status: Never used Tobacco Current occupational status: disabled Current occupation: rt handed Physical Exam Vital Signs: BMI result Body Mass Index 28.3 Extrem Other: Left shoulder examination shows that the surgical incisions are well healed, no erythema, slightly decreased range of motion when compared to her right shoulder, mild discomfort with resisted forward flexion, no instability Assessment & Plan Assessment & Plan (1) Left shoulder pain: Code(s): M25.512 - Pain in left shoulder Category: Medical Plan Ms. Tejada continues to do fairly well after undergoing left shoulder arthroscopic surgery on 06/29/2024. She does remain somewhat stiff. I did give her a prescription to go to formal physical therapy. The do's and don'ts of lifting were discussed at length with the patient. She will contact me prior to her follow-up appointment in 3 months should any questions or concerns arise. Feel free to call me at any time should questions regarding her orthopedic management arise. Orders: Orders PT Evaluation and Treatment Today M25.512 - Pain in left shoulder Coding Level of Care Code Global (39669) Diagnoses Left shoulder pain M25.512
[2024-09-12 10:50] VITALS: BMI 28.3
--- OUTSIDE RECORDS SUMMARY | 2024-09-12 11:48 | XMS_ITS | Data Portability ---
Author Organization [employer] [place] [employer] Address [address] [place] [id number] Assessment No assessment recorded. Plan of Treatment [...] Not available Not available Not available 02/14/2024 06912 RxNorm Not Available [facility] - production 4 03:41:49 8078 latex environme nt,medica tion Not available Not available Not available 02/14/2024 [id number] 91 RxNorm Not Available [facility] - production 4 03:41:49 8079 levofloxa leela medicatio n Not available Not available Not available 02/14/2024 96814 RxNorm Not Available [facility] - production 4 [...] SNOMED-CT Code Diagnosis ICD10 Code Diagnosis Note [id number] Ravi Castillo MD Main - [facility] [address] [place] [address] 12/31/2022 17:19:52 01/03/2023 11:18:56 Essential hypertension [id number] I10 This 57-year-ol d female with hypertensi on treated with metoprolol XL and valsartan called instED because her BP has been elevated today. Earlier today she had a knee injection. Her EKG showed no acute findings. Her BP was trending down when the retail salesperson arrived. I recommende d that she monitor [...] [employer] Member ID Guarantor Name 06/21/2023 1 [facility] - DOS ON OR AFTER 2022 - DUAL ELIGIBLE - JAIL OPTIONS AND ONE CARE (MEDICARE REPLACEMENT/ADV ANTAGE - HMO) Ameena Tejada [id number] Ameena Tejada Notes Date Note Type Note Provider Name and Address Organization Details Recorded Time 12/31/2022 text/html HPI: Patient with trending elevated BP's on last visit at [facility]. Though may be due to pain. [...] required to process visit Ravi Castillo MD [address] [place] [address],[address], [place], [address], [employer] 12/31/2022 17:26:53 OBGyn Episode No OBEpisode recorded.
== END 2024-09-12 11:01 | disposition home or self-care (01) ==
LOC: HO.HOS 10:44
PROVIDERS: PCP Family Medicine; Visit Provider Orthopaedic Surgery
DX: M25.512 Pain in left shoulder (principal)
CPT/HCPCS: 99024

== ENCOUNTER → 2024-09-12 10:43 | Outpatient (BNVA) | payer OTHER, SELFPAY | PROVIDERS: PCP Family Medicine; Visit Provider Orthopaedic Surgery | DX: M25.512 Pain in left shoulder (principal) | CPT/HCPCS: 99212 ==

== ENCOUNTER 2024-11-07 15:00 | Outpatient (RCR) | payer OTHER, SELFPAY ==
--- NOTE | 2024-10-09 17:39 | MHC.PT.EP ---
[facility] [place] Office [place] Office [place] Office [address] [phone] F: [phone] F: [phone] F: [phone] F: [phone] Physical Therapy Plan of Care Date of Evaluation: 10/04/24 Date of Surgery: 06/29/24 Diagnosis: L shoulder Scope 06/29/24 Sp instructions for PROM/ AROM, gentle strengthening. Assessment: Pt is a 59 y/o female who is referred to PT for eval and treat of L shoulder pain s/p L shoulder scope performed on 06/29/24 (with sp instructions for PROM/ AROM, gentle strengthening) who reports she has a little more movement after surgery though persists with limiting pain. She reports decreased tolerance for laying on her L side, lifting objects of weight, reaching high shelves, dressing pullovers, dressing and washing her hair as well as reaching her back for hygiene and dressing secondary to decreased L shoulder ROM and strength, decreased scapular posture, Hx of chronic shoulder pain as well as surgical healing process. Frequency and Duration: The patient will be seen 2 x/ wk x 5 wks. Short Term Goals: initiate home program. Pt will report improved baseline pain to < 4/10; initial: 6/10. [facility]ci Goals: I with home program. Pt will improve SPADI outcome by at least 9points. Pt will achieve symmetrical shoulder flexion AROM. Pt will be able to dress pullovers with managed Sx: initial: 8/10 difficulty Treatment Plan: Modalities to reduce pain, spasms and effusion. Manual therapy to restore motion and function. Therapeutic exercise to improve strength and flexibility. Neuromuscular re-education for posture and balance. Therapeutic activities to return to functional activities of daily living. Electronically signed by: Manoj Kulkarni PT. Please sign and return to therapist. Thank you for your referral.
--- NOTE | 2024-11-07 17:11 | MHC.PT.DC ---
[facility] [place] Office [place] Office [address] Myron Tee [address] [phone] F: [phone] F: [phone] F: [phone] F: [phone] Physical Therapy Discharge Report Diagnosis: L shoulder Scope 06/29/24 Sp instructions for PROM/ AROM, gentle strengthening. Date of Surgery: 06/29/24 Date of Evaluation: 10/04/24 Date of Discharge: 11/07/24 Treatments to Date: 7 Cancellations to Date: No Shows to Date: Discharge Status: Improved Function Recommend MD Follow-up Discharge Summary: Thais has attended therapy for 7 visits and is motivated for DC today as she persists with pain and decreased function. Her participation in therapy was fair with fair to poor home program compliance. She reports mild improvement of her function and persists with pain. Electronically signed by: Manoj Kulkarni PT. Please sign and return to therapist. Thank you for your referral.
== END 2024-11-07 17:12 | disposition home or self-care (01) ==
LOC: HO.PT 15:00
PROVIDERS: PCP Family Medicine; Visit Provider Orthopaedic Surgery
DX: M25.512 Pain in left shoulder (principal)
CPT/HCPCS: 97110; 97161

== ENCOUNTER 2024-11-14 11:31 | Outpatient (AMB) | payer OTHER, SELFPAY ==
--- OUTSIDE RECORDS SUMMARY | 2023-10-19 04:30 | XMS_ITS ---
Author Organization [facility] Address [address] [place] [address] Care Team Providers Care Card Grinder Helper Name Role Phone Choco GANDHI, Patito Primary Care Provider Leonardo Harding Unavailable [phone] REASON FOR VISIT screening Problems Problem Type SNOMED Code ICD Code Onset Dates Problem Status W/U Status Risk Notes Problem Diverticulosis o f large intestine without perforation or abscess without bleeding (K57.30) Active confirmed Encounters Encounter Location Date Provider Diagnosis [facility] Outpatient [address] [place], [place] [phone] 10/19/2023 Leonardo Stratton Encounter for scre ening [...] * KANDY NASSARMERLENEB: 5 (59 yo F)Acc No.[id number]:10/19/2023 COLON WITH MAC Patient: JAMEL RICHARD Provider: Layton Stratton MD :1965 A ge:58 Y S ex:Female Date:10/19/2023 Address:[address] [place] [address] [address] [id number] Pcp:Patito Wilhelm MD Subjective: * Chief Complaints: [...] Pending * Provider: Layton Stratton MD Date: 10/19/2023 Generated for Nory funk/Eulalia/Lanitting on: 11/14/2024 12:32 PM EDT
--- NOTE | 2024-11-14 11:40 | MHC.OFFVIS ---
Vital Signs 11/14/24 11:41 Height 5 ft Weight 145 lb BMI 28.3 Intake Visit Reasons: OV- LT Shoulder 06/29/24 Intake Note: Ameena is a 59 year old female who presents today post-operatively after undergoing left shoulder arthroscopic surgery on 06/29/24. She reports mild to moderate discomfort in her left shoulder. She denies any fevers or chills. She has completed formal physical therapy. She continues with her home stretching program. Allergies rosiglitazone (Avandia) Allergy (Severe, Verified 09/12/24 10:49) rash/hepatitis C cyclobenzaprine (From FLEXERIL) Allergy (Intermediate, Verified 09/12/24 10:49) HIVES latex (LATEX) Allergy (Intermediate, Verified 09/12/24 10:49) RASH azithromycin (From Zithromax) Allergy (Mild, Verified 09/12/24 10:49) SWELLING glipizide (From Glucotrol) Allergy (Mild, Verified 09/12/24 10:49) SWELLING levofloxacin (From Levaquin) Allergy (Mild, Verified 09/12/24 10:49) leg swelling aspirin (Aspirin) Allergy (Unknown, Verified 09/12/24 10:49) reaction unknown-was years ago Flexeril Allergy (Severe, Uncoded 09/12/24 10:49) Rash Medication List - Last Reconciled 11/14/24 by Pravin Guardado MD acetaminophen 500 mg PO Q6H PRN albuterol sulfate 90 mcg/actuation 2 puffs inhalation Q4-6H PRN azelastine 1 spray intranasal DAILY PRN budesonide-formoterol 160-4.5 mcg/actuation (Symbicort) 2 puffs inhalation BID celecoxib (Celebrex) 200 mg PO Q12H PRN cholecalciferol (vitamin D3) 50 mcg PO DAILY dicyclomine 10 - 20 mg PO Q6H PRN insulin asp prt-insulin aspart 100 unit/mL (70-30) (Novolog Mix 70-30FlexPen U-100) 25 units subcut BID meclizine 25 mg PO TID PRN metoprolol succinate ER 75 mg PO BEDTIME montelukast 10 mg PO QPM naloxone 4 mg/actuation 1 spray intranasal DAILY nitroglycerin 0.4 mg sublingual Q5M PRN omeprazole 20 mg PO DAILY pregabalin 75 mg PO BID semaglutide (Ozempic) 2 mg subcut QWEEK valsartan-hydrochlorothiazide 320-25 mg 1 tab PO DAILY vitamin B complex (Vitamins B Complex tablet) 1 tab PO DAILY PFSH Medical History NIKI (obstructive sleep apnea) Bronchitis Lumbar radiculopathy Obesity Macromastia Meralgia paraesthetica Insomnia Palpitations Arthritis Back pain Diabetes History of abdominal hernia GERD (gastroesophageal reflux disease) Irritable bowel syndrome Interstitial cystitis Jaundice Hepatitis C Depression Neuropathy Numbness History of headache Vertigo Asthma Elevated cholesterol HTN (hypertension) Subcutaneous mass of left foot Calcaneal spur, unspecified foot Hernia Surgical History Hx of arthroscopy of shoulder Hx of hysterectomy Hx of elbow surgery Hx of removal of cyst Hx of foot surgery Hx of section History of bladder surgery H/O colonoscopy History of cholecystectomy History of carpal tunnel surgery of right wrist History of carpal tunnel surgery of left wrist H/O tubal ligation History of repair of rotator cuff History of liver biopsy Family History Father Gastric cancer Mother Coronary disease Social History Are you a primary resident care spec to a significant other at home: No Do you presently have visiting nurse or other home services: No Alcohol intake: never Patient Tobacco Use Status: Never used Tobacco Current occupational status: disabled Current occupation: rt handed Physical Exam Vital Signs: BMI result Body Mass Index 28.3 Const Other: Well-nourished well-developed very friendly female awake alert and oriented x3 in no acute distress Extrem Other: Bilateral upper extremity examination shows good capillary refill, no skin lesions noted, normal sensation light touch Left shoulder examination shows that the surgical incisions are well healed, no erythema, slightly decreased range of motion when compared to her right shoulder, 4+ out of 5 strength with supraspinatus testing Assessment & Plan Assessment & Plan (1) Left shoulder pain: Code(s): M25.512 - Pain in left shoulder Category: Medical Plan Ms. Tejada continues to do fairly well after undergoing left shoulder arthroscopic surgery on 06/29/2024. She does remain somewhat stiff. The patient will continue with her home stretching program. I did give her a prescription for a Medrol Dosepak. She will contact me prior to her follow-up appointment in 2-3 months should any questions or concerns arise. Feel free to call me at any time should questions regarding her orthopedic management arise. I spent 21 minutes in reviewing the patient's records and imaging studies, seeing the patient and documenting in the medical record. Medications: New methylprednisolone (Medrol (Braeden)) PO PER PKG DIR 21 ea 0RF Coding Level of Care Code Est Pt Level 3 (63445) Complex EM visit Add On G2211 Diagnoses Left shoulder pain M25.512
[2024-11-14 11:41] VITALS: BMI 28.3
--- OUTSIDE RECORDS SUMMARY | 2024-11-14 12:32 | XMS_ITS | Encounter Summary ---
Author Organization [employer] Address [address] [facility] [address] [place] [address] Care Team Providers Care Hat Finishing Materials Preparer Name Role Phone Patito Wilhelm MD Primary Care Provider [phone] Wilber Christie PharmD Unavailable [phone] Reason for Visit * Reason Onset Date Comments PAP Smear 08/1008/11/2023 Encounter Details Date Type Department Care Team ([facility] st Contact Info) Description 08/11/2023 Telephone [facility] [address] [place] [address] Patito Wilhelm MD [address] [place], [place] [phone] PAP Smear 08/10 Social History Tobacco Use [...] stated she wasn't able ot make it, sheet writer attempted to r/s but no availability. Poultry Inspector advised pt call back August 16 r/s for October. documented in this encounter Plan of Treatment Upcoming Encounters Date Type Department Care Team (Late st Contact Info) Description 12/11/2024 11:00 AM EDT Office Visit [facility] [address] [place] [phone] 12/12/2024 2:00 PM EDT Medication Management [facility] [address] [place] [phone] Wilber Christie PharmD [address] [place] [phone] documented as of this encounter Goals Goal Patient Goal Type Associated Problems Recent Progress Patient-Stated? Author Blood Pressure < 140/90 Blood Pressure 112/60(2024 3:23 PM EDT) No Wilber Christie PharmD Hemoglobin A1c < 7 Result Component 6.1( 3:12 PM EDT) No Wilber Christie PharmD documented as of this encounter Visit Diagnoses Not on filedocumented in this encounter Additional Health Concerns Assessment Noted Time PHQ-9 Depression Total Score: 6 07/27/19 1:10 PM EDT documented as of this encounter Care Teams Hat Finishing Materials Preparer Relationship Specialty Start Date End Date Patito Wilhelm MD [address] [place] [address] PCP - General Family Medicine 11/13/18 Wilber Christie, Kaia [address] [place] [address] Pharmacist Internal Medicine 01/28/23 documented as of this encounter
--- OUTSIDE RECORDS SUMMARY | 2024-11-14 12:32 | XMS_ITS | Clinical Summary ---
Author Organization [facility] Address [address] [facility] [address] [place] [address] Phone Care Team Providers Care Badger Distiller Operator Name Role Phone Patito Wilhelm MD Primary Care Provider [phone] Allergies Active Allergy Reactions Criticality Noted Date [...] & Plan: - recommended to check with rn pain management if she can receive steroid injection Chronic primary bladder pain syndrome 08/14/2012 05/03/2023 Overview (05/03/2023): Last Assessment & Plan: -Followed by urologist, [facility], last seen on 02/22/22 -Prescribed tamsulosin Chronic low back pain 08/14/2012 05/03/2023 Overview (05/03/2023): Last Assessment & Plan: -Seen by rn pain management on 12/16/22, yet mainly for left knee [...] (05/03/2023): Last Assessment & Plan: -Followed by [facility] pulmonology, last seen on 11/30/21 -Questionable adherence to medications according to refill history -Reviewed her medications today and discussed about the importance of adherence -Continue Dulera and Spiriva as maintenance -Continue albuterol HFA prn as rescue -Consider referring to MTM -Urged to schedule appt with seed laboratory assistant; pt verbalized understanding Type 2 diabetes mellitus [...] active Hep C. -Check the satus of [employer] -Last eye exam: 06/18/22, no retinopathy -Last [...] Last Assessment & Plan: - Following with [facility] Raw Shellfish Preparer, last seen on 12/16/22, started on Euflexxa injection - XR on 12/16/22 showed : mild Osteoarthritis - Currently receiving intraarticular Euflexxa (hyaluronate derivative) Injection - Continue current Tx plan per rn pain management Viral hepatitis C 09/20/2011 05/03/2023 Social History [...] Care Team (Late st Contact Info) Description 02/01/2025 9:00 AM EDT Office Visit [facility] [address] [facility] [address] [place] [address] Jareth Rowan MD [address] [facility] [address] [place] [address] Health Maintenance Due Date Last Done Comments Breast Cancer Screening 1965 Hepatitis B Vaccine (1 of 3 - 19+ 3-dose series) 1984 Colorectal Cancer Screening: Annual FOBT 2014 Colorectal Cancer Screening: Sigmoidoscopy 2014 Diabetes: Pedal Pulse Checked 02/15/2023 Diabetes: Sensory Foot Exam 02/15/2023 Diabetes: Visual Foot Exam 02/15/2023 Influenza Vaccine (#1) 2024 4, 01/10/2023, 01/05/2022, Additional history exists Diabetes: Hemoglobin A1C 01/29/2025 025, 06/11/2024, 12/06/2023, Additional history exists Diabetes: Ophthalmology Exam 10/09/2025 10/09/2024 Colorectal Cancer Screening: Colonoscopy 10/18/2033 10/19/2023 Pneumococcal Vaccine: 50+ Years Completed 10/08/2022, 05/10/2022, 02/13/2002 Pneumococcal Vaccine: Peds ( 0 to 5 Years) and At-Risk Patients (6 to 49 Years) Discontinued 10/08/2022, 05/10/2022, 02/13/[address] [place] [id number] [facility] ([id number]) [place] [address] ([id number]) Care Teams Badger Distiller Operator Relationship Specialty Start Date End Date Patito Wilhelm MD [address] [place] [phone] PCP - General Family Medicine 02/07/24
== END 2024-11-14 12:15 | disposition home or self-care (01) ==
LOC: HO.HOS 11:31
PROVIDERS: PCP Family Medicine; Visit Provider Orthopaedic Surgery
DX: M25.512 Pain in left shoulder (principal)
CPT/HCPCS: 99213; G2211

== ENCOUNTER → 2024-11-14 11:31 | Outpatient (BNVA) | payer OTHER, SELFPAY | PROVIDERS: PCP Family Medicine; Visit Provider Orthopaedic Surgery | DX: M25.512 Pain in left shoulder (principal); Z98.890 Other specified postprocedural states | CPT/HCPCS: 99212 ==

== ENCOUNTER 2024-12-26 10:27 | Outpatient (AMB) | payer OTHER, SELFPAY ==
--- OUTSIDE RECORDS SUMMARY | 2023-10-19 04:30 | XMS_ITS ---
Author Organization [facility] Address [address] [place] [address] Care Team Providers Care Attendant Child Activity Name Role Phone Choco GANDHI, Patito Primary Care Provider Leonardo Harding Unavailable [phone] REASON FOR VISIT screening Problems Problem Type SNOMED Code ICD Code Onset Dates Problem Status W/U Status Risk Notes Problem Diverticular disease of colon (148919934) Diverticulosis of large intestine without perforation or abscess without bleeding (K57.30) Active confirmed Encounters Encounter Location Date Provider Diagnosis [facility] Outpatient [address] [place], [place] [phone] 10/19/2023 Leonardo Stratton Encounter for scre ening [...] * KANDY NASSARMERLENEB: 5 (59 yo F)Acc No.[id number]:10/19/2023 COLON WITH MAC Patient: JAMEL RICHARD Provider: Layton Stratton MD :1965 A ge:58 Y S ex:Female Date:10/19/2023 Address:[address] [place] [address] [address] [id number] Pcp:Patito Wilhelm MD Subjective: * Chief Complaints: [...] 0 10/19/2023 Generated for Nory funk/Eulalia/Lanitting on: 0 12/26/2024 12:42 PM EDT
--- OUTSIDE RECORDS SUMMARY | 2024-07-19 05:20 | XMS_ITS ---
Author Organization [facility] Address [address] [place] [address] Care Team Providers Care State Superintendent Of Schools Name Role Phone Choco GANDHI, Patito Primary Care Provider Leonardo Harding [phone] REASON FOR VISIT Patient presents today for hepatitis c Encounters Encounter Location Date Provider Diagnosis [facility] [address] [place] [address] 07/19/2024 Leonardo Stratton Plan Of Treatment No Information Progress Notes * ANDERSON NASSARB: 5 (59 yo F)Acc No.[id number]:07/19/2024 Progress Notes Patient: JAMEL RICHARD Provider: Layton Stratton MD :1965 A ge:59 Y S ex:Female Date:07/19/2024 Address:[address] [place] [address] [address] [place] [facility] Pcp:Patito Wilhelm MD Subjective: * Chief Complaints: [...] MD Date: 0 07/19/2024 Generated for Nory funk/Fakelseag/eTransmitting on: 0 12/26/2024 12:42 PM EDT
--- NOTE | 2024-12-26 10:29 | A.OFFVIS_ITS ---
Vital Signs 12/26/24 10:34 Height 5 ft Weight 154 lb BMI 30.1 BP 124/63 Blood Pressure Location Rt brachial Position Sitting Pulse 94 Intake Visit Reasons: ventral hernia Intake Note: Patient referred by pcp Dr. Wilhelm for evaluation and treatment of ventral hernia. Patient c/o: right lower abdomen pain. On and off diarrhea. Imaging: Abdomen pelvis CT~ 08-30-2024 Brass Instrument Repair Technician Required: No Accompanied by: Self / Same As Patient Allergies rosiglitazone (Avandia) Allergy (Severe, Verified 12/26/24 10:36) rash/hepatitis C cyclobenzaprine (From FLEXERIL) Allergy (Intermediate, Verified 12/26/24 10:36) HIVES latex (LATEX) Allergy (Intermediate, Verified 12/26/24 10:36) RASH azithromycin (From Zithromax) Allergy (Mild, Verified 12/26/24 10:36) SWELLING glipizide (From Glucotrol) Allergy (Mild, Verified 12/26/24 10:36) SWELLING levofloxacin (From Levaquin) Allergy (Mild, Verified 12/26/24 10:36) leg swelling aspirin (Aspirin) Allergy (Unknown, Verified 12/26/24 10:36) reaction unknown-was years ago Flexeril Allergy (Severe, Uncoded 12/26/24 10:36) Rash Medication List - Last Reconciled 12/26/24 by Marcell Saez MD acetaminophen 500 mg PO Q6H PRN albuterol sulfate 90 mcg/actuation 2 puffs inhalation Q4-6H PRN azelastine 1 spray intranasal DAILY PRN budesonide-formoterol 160-4.5 mcg/actuation (Symbicort) 2 puffs inhalation BID celecoxib (Celebrex) 200 mg PO Q12H PRN cholecalciferol (vitamin D3) 50 mcg PO DAILY dicyclomine 10 - 20 mg PO Q6H PRN insulin asp prt-insulin aspart 100 unit/mL (70-30) (Novolog Mix 70-30FlexPen U- 100) 25 units subcut BID meclizine 25 mg PO TID PRN methylprednisolone (Medrol (Braeden)) PO PER PKG DIR metoprolol succinate ER 75 mg PO BEDTIME montelukast 10 mg PO QPM naloxone 4 mg/actuation 1 spray intranasal DAILY nitroglycerin 0.4 mg sublingual Q5M PRN omeprazole 20 mg PO DAILY pregabalin 75 mg PO BID semaglutide (Ozempic) 2 mg subcut QWEEK valsartan-hydrochlorothiazide 320-25 mg 1 tab PO DAILY vitamin B complex (Vitamins B Complex tablet) 1 tab PO DAILY HPI HPI ventral hernia: Details: [age] year old female referred for a a question of a ventral hernia. She has had what she describes the discomfort and pain in the right side for abdomen. She feels that there is a ?lump? on the right lower quadrant off of the midline. She denies GI complaints. She does have multiple medical problems including diabetes with neuropathy, and chronic back pain. She has difficulty with ambulation. [facility] Medical History (Updated 12/26/24 @ 10:45 by Marcell Saez MD) Right sided abdominal pain NIKI (obstructive sleep apnea) Bronchitis Lumbar radiculopathy Obesity Macromastia Meralgia paraesthetica Insomnia Palpitations Arthritis Back pain Diabetes History of abdominal hernia GERD (gastroesophageal reflux disease) Irritable bowel syndrome Interstitial cystitis Jaundice Hepatitis C Depression Neuropathy Numbness History of headache Vertigo Asthma Elevated cholesterol HTN (hypertension) Subcutaneous mass of left foot Calcaneal spur, unspecified foot Hernia Surgical History Hx of arthroscopy of shoulder Hx of hysterectomy Hx of elbow surgery Hx of removal of cyst Hx of foot surgery Hx of section History of bladder surgery H/O colonoscopy History of cholecystectomy History of carpal tunnel surgery of right wrist History of carpal tunnel surgery of left wrist H/O tubal ligation History of repair of rotator cuff History of liver biopsy Family History Father Gastric cancer Mother Coronary disease Social History Are you a primary transitions rn care coordinator to a significant other at home: No Do you presently have visiting nurse or other home services: No Alcohol intake: never Patient Tobacco Use Status: Never used Tobacco Current occupational status: disabled Current occupation: rt handed Review of Systems Const Denies chills and Denies fever(s) Card Denies chest pain, Denies dyspnea and Denies dyspnea on exertion Resp Denies cough, Denies dyspnea and Denies dyspnea on exertion GI Denies hematochezia and Denies change in bowel habits Denies hematuria Musc Details: Numbness of the right leg with neuropathy Reports abnormal gait, Reports back pain and Reports limited range of motion Neuro Reports abnormal gait, Denies focal weakness and Denies convulsions Psych Denies depression and Denies mood swings Physical Exam Vital Signs: Last Vital Signs Pulse 94 12/26/24 10:34 BP 124/63 12/26/24 10:34 BMI result Body Mass Index 30.1 Const Other: Walks with a cane, appears morbidly obese General: comfortable and no acute distress Orientation/consciousness: patient oriented x3 Neck Neck: Yes no lymphadenopathy Resp Auscultation: clear to auscultation bilaterally Cardio Rhythm: regular rhythm GI Other: Has a large pannus, I am unable to palpate any mass or hernia even with Valsalva Palpation (GI): Soft to palpation, nontender and no guarding Neuro General: patient oriented x3 Assessment & Plan Assessment & Plan (1) Right sided abdominal pain: Code(s): R10.9 - Unspecified abdominal pain Category: Medical Plan: She was referred to me for a question of a ventral hernia on the right side of her abdomen. The patient says that thinks she has a mass in the area and has had discomfort and vague pains. Current exam does not reveal any obvious hernia but she does have a large pannus I am going to order for a CAT scan of the abdomen and pelvis to rule out a hernia. I will see her again in the office after that. She understands the plan well and is comfortable with this. She otherwise denies GI complaints. Coding Level of Care Code New Pt Level 3 (87251) Diagnoses Right sided abdominal pain R10.9
[2024-12-26 10:34] VITALS: BP 124/63; PULSE 94; BMI 30.1
--- OUTSIDE RECORDS SUMMARY | 2024-12-26 12:41 | XMS_ITS | Encounter Summary ---
Author Organization [employer] Address [address] [facility] 7t [place] [address] Care Team Providers Care Area Plant Manager Name Role Phone Patito Wilhelm MD Primary Care Provider [phone] Wilber Christie PharmD Unavailable [phone] Reason for Visit * Reason Onset Date Comments Med Refill 08/16/2024 Encounter Details Date Type Department Care Team (Late st Contact Info) Description 08/16/2024 Telephone [facility] [address] [place] [address] Patito Wilhelm MD [address] [place] [address] Med Refill Social History Tobacco Use Types [...] * Telephone Encounter - Jess Bunn - 08/16/2024 3:21 PM EDT TC from pt requesting medication refill. Medications needing refill : oxyCODONE-acetaminophen (Percocet) 5-325 MG tablet To be sent to: [address] [address] documented in this encounter Plan of Treatment Upcoming Encounters Date Type Department Care Team (Late st Contact Info) Description 01/23/2025 2:30 PM EDT Medication Management [facility] [address] [place] [address] Wilber Christie, PharmD [address] [place] [address] 02/04/2025 3:00 PM EDT Office Visit [facility] [address] [place] [address] Patito Wilhelm MD [address] [place] [address] 03/12/2025 11:00 AM EST Office Visit [facility] [address] [place] [address] documented as of this encounter Goals Goal Patient Goal Type Associated Problems Recent Progress Patient-Stated? Author Blood Pressure < 140/90 Blood Pressure 150/73(2024 5:11 PM EDT) No Wilber Christie PharmD Hemoglobin A1c < 7 Result Component 6.1( 3:12 PM EDT) No Wilber Christie PharmD documented as of this encounter Visit Diagnoses Not on filedocumented in this encounter Additional Health Concerns Assessment Noted Time PHQ-9 Depression Total Score: 11 024 1:39 PM EDT documented as of this encounter Care Teams Area Plant Manager Relationship Specialty Start Date End Date Patito Wilhelm MD [address] [place] [address] PCP - General Family Medicine 11/13/18 Wilber Christie, Kaia [address] [place] [address] Pharmacist Internal Medicine 01/28/23 documented as of this encounter
--- OUTSIDE RECORDS SUMMARY | 2024-12-26 12:41 | XMS_ITS | Encounter Summary ---
Author Organization [employer] Address [address] [facility] 7t [place] [address] Care Team Providers Care Tool Maker Name Role Phone Patito Wilhelm MD Primary Care Provider [phone] Wilber Christie PharmD Unavailable [phone] Reason for Visit * Reason Onset Date Comments PAP Smear 08/1008/11/2023 Encounter Details Date Type Department Care Team ([facility] st Contact Info) Description 08/11/2023 Telephone [facility] [address] [place] [address] Patito Wilhelm MD [address] [place], [place] [phone] PAP Smear 08/10 Social History Tobacco Use [...] stated she wasn't able ot make it, specifications writer attempted to r/s but no availability. Horticultural Services Supervisor advised pt call back August 16 r/s for October. documented in this encounter Plan of Treatment Upcoming Encounters Date Type Department Care Team (Late st Contact Info) Description 01/23/2025 2:30 PM EDT Medication Management [facility] [address] [place] [address] Wilber Christie, Kaia [address] [place] [address] 02/04/2025 3:00 PM EDT Office Visit [facility] [address] [place] [address] Patito Wilhelm MD [address] [place] [address] 03/12/2025 11:00 AM EST Office Visit [address] [address] documented as of this encounter Goals Goal Patient Goal Type Associated Problems Recent Progress Patient-Stated? Author Blood Pressure < 140/90 Blood Pressure 150/73(2024 5:11 PM EDT) No Wilber Christie, PharmD Hemoglobin A1c < 7 Result Component 6.1( 5 3:12 PM EDT) No Wilber Christie PharmD documented as of this encounter Visit Diagnoses Not on filedocumented in this encounter Additional Health Concerns Assessment Noted Time PHQ-9 Depression Total Score: 6 07/27/19 23 1:10 PM EDT documented as of this encounter Care Teams Tool Maker Relationship Specialty Start Date End Date Patito Wilhelm MD [address] [place] [address] PCP - General Family Medicine 11/13/18 Wilber Christie PharmD [address] [place] [address] Pharmacist Internal Medicine 01/28/23 documented as of this encounter
--- OUTSIDE RECORDS SUMMARY | 2024-12-26 12:41 | XMS_ITS | Encounter Summary ---
Author Organization [employer] Address [address] [facility] 7t [place] [address] Care Team Providers Care Tube And Rod Straightener Name Role Phone Patito Wilhelm MD Primary Care Provider [phone] Wilber Christie PharmD Unavailable Reason for Visit * Reason Onset Date Comments Med Refill 12/10/2024 Encounter Details Date Type Department Care Team (Late st Contact Info) Description 12/10/[address] [facility] [address] [place] [address] Patito Wilhelm MD [address] [place] [address] Med Refill Social History Tobacco Use Types [...] Access Q2 Not on file 03/27/2024 Comments No Sex and Gender Information Value Date Recorded Sex Assigned at Female 02/15/2022 10:16 AM EDT Legal Sex Female 10:16 AM EDT Gender Identity Female 02/15/2022 10:16 AM EDT Sexual Orientation Straight 02/15/2022 10 :16 AM EDT documented as of this encounter Miscellaneous Notes * Telephone Encounter - Dominga Puente - 12/10/2024 12:06 PM EDT TC from pt requesting medication refill. Medications needing refill : -oxyCODONE-acetaminophen (Percocet) 5-325 MG tablet To be sent to: - [facility]/pharmacy #[id number] documented in this encounter Plan of Treatment Upcoming Encounters Date Type Department Care Team (Late st Contact Info) Description 01/23/2025 2:30 PM EDT Medication Management [facility] [address] [place] [address] Wilber Christie, PharmD [address] [place] [address] 02/04/2025 3:00 PM EDT Office Visit [facility] [address] [place] [address] Patito Wilhelm MD [address] [place] [address] 03/12/2025 11:00 AM EST Office Visit [facility] [address] [place] [address] documented as of this encounter Goals Goal Patient Goal Type Associated Problems Recent Progress Patient-Stated? Author Blood Pressure < 140/90 Blood Pressure 150/73(2024 5:11 PM EDT) No Wilber Christie PharmD Hemoglobin A1c < 7 Result Component 6.1( 3:12 PM EDT) No Wilber Christie, PharmKit documented as of this encounter Visit Diagnoses Not on filedocumented in this encounter Additional Health Concerns Assessment Noted Time PHQ-9 Depression Total Score: 11 024 1:39 PM EDT documented as of this encounter Care Teams Tube And Rod Straightener Relationship Specialty Start Date End Date Patito Wilhelm MD [address] [place] [address] PCP - General Family Medicine 11/13/18 Wilber Christie, PharmD [address] [place] [address] Pharmacist Internal Medicine 01/28/23 documented as of this encounter
--- OUTSIDE RECORDS SUMMARY | 2024-12-26 12:41 | XMS_ITS | Encounter Summary ---
Author Organization [employer] Address [address] [facility] 7t [place] [address] Care Team Providers Care Physical Education Teacher Name Role Phone Patito Wilhelm MD Primary Care Provider [phone] Wilber Christie PharmD Unavailable [phone] Reason for Visit * Reason Onset Date Comments Appointment Request 12/18/2024 Encounter Details Date Type Department Care Team ([facility] st Contact Info) Description 12/18/2024 Telephone [facility] MEDICINE [address] [place], [place] [phone] Patito Wilhelm MD [address] [place], [place] [phone] Appointment Request Social History Tobacco Use Types [...] * Telephone Encounter - Dominga Puente - 12/18/2024 10:27 AM EDT Tc from pt requesting to reschedule appt from 12/19 due to pt not having transportation. Contact pt at [phone] Need auto parts salesperson documented in this encounter Plan of Treatment Upcoming Encounters Date Type Department Care Team (Late st Contact Info) Description 01/23/2025 2:30 PM EDT Medication Management [facility] MED[facility]INE [address] [place] [address] Wilber Christie, PharmD [address] [place] [address] 02/04/2025 3:00 PM EDT Office Visit [address] [address] Patito Wilhelm MD [address] [place] [address] 03/12/2025 11:00 AM EST Office Visit [facility] [address] [place] [address] documented as of this encounter Goals Goal [...] documented as of this encounter Care Teams Physical Education Teacher Relationship Specialty Start Date End Date Patito Wilhelm MD [address] [place] [address] PCP - General Family Medicine 11/13/18 Wilber Christie PharmD [address] [place] [address] Pharmacist Internal Medicine 01/28/23 documented as of this encounter
--- OUTSIDE RECORDS SUMMARY | 2024-12-26 12:41 | XMS_ITS | Encounter Summary ---
Author Organization [employer] Address [address] [facility] 7t [place] [address] Care Team Providers Care Director Home Name Role Phone Patito Wilhelm MD Primary Care Provider [phone] Wilber Christie PharmD Unavailable [phone] Reason for Visit * Reason Onset Date Comments Medication Question 12/03/2024 Encounter Details Date Type Department Care Team ([facility] st Contact Info) Description 12/03/2024 Telephone [facility] [address] [place], [place] [phone] Patito Wilhelm MD [address] [place], [place] [phone] Medication Question Social History Tobacco Use Types [...] Telephone Encounter - Trisha Tai RN - 12/04/2024 3:49 PM EDT No lidocaine products are covered by pt's insurance per formulary. Will need PA * Telephone Encounter - Sydnee Pathak - 12/03/2024 3:00 PM EDT Tc from pt stating she was advised to request an alternative for lidocaine (LMX 4) 4 % cream. Not covered by insurance. Pt stated [facility] advised her to request a stronger dosage. documented in this encounter Plan of Treatment Upcoming Encounters Date Type Department Care Team (Late st Contact Info) Description 01/23/2025 2:30 PM EDT Medication Management [facility] [address] [place], [place] [phone] Wilber Christie, PharmD [address] [place] [address] 02/04/2025 3:00 PM EDT Office Visit [address] [address] [place] [address] 03/12/2025 11:00 AM EST Office Visit [address] [address] documented as of this encounter Goals Goal Patient Goal Type Associated Problems Recent Progress Patient-Stated? Author Blood Pressure < 140/90 Blood Pressure 150/73(2024 5:11 PM EDT) No Wilber Christie, Kaia Hemoglobin A1c < 7 Result Component 6.1( 3:12 PM EDT) No Wilber Christie PharmD documented as of this encounter Visit Diagnoses Not on filedocumented in this encounter Additional Health Concerns Assessment Noted Time PHQ-9 Depression Total Score: 11 12/05/ 024 1:39 PM EDT documented as of this encounter Care Teams Director Home Relationship Specialty Start Date End Date Patito Wilhelm MD [address] [place] [address] PCP - General Family Medicine 11/13/18 Wilber Christie, PennyD [address] [place] [address] Pharmacist Internal Medicine 01/28/23 documented as of this encounter
--- OUTSIDE RECORDS SUMMARY | 2024-12-26 12:41 | XMS_ITS | Encounter Summary ---
Author Organization [employer] Address [address] [facility] 7t [place] [address] Care Team Providers Care Travel Pt Name Role Phone Patito Wilhelm MD Primary Care Provider [phone] Wilber Christie PharmD Unavailable [phone] Reason for Visit * Reason Comments Med Refill Encounter Details Date Type Department Care Team (Late st Contact Info) Description 12/24/2024 Refill [facility] [address] [place] [address] Patito Wilhelm MD [address] [place] [address] Moderate persistent asthma without complication Social History Tobacco Use Types Packs/Day Years [...] Description 01/23/2025 2:30 PM EDT Medication Management [address] [address] Wilber Christie PharmD [address] [place] [address] 02/04/2025 3:00 PM EDT Office Visit [address] [address] Patito Wilhelm MD [address] [place] [address] 03/12/2025 11:00 AM EST Office Visit [address] [address] documented as of this encounter Goals Goal Patient Goal Type Associated Problems Recent Progress Patient-Stated? Author Blood Pressure < 140/90 Blood Pressure 150/73(2024 5:11 PM EDT) No Wilber Christie, PharmKit Hemoglobin A1c < 7 Result Component 6.1( 3:12 PM EDT) No Christie, Wilber, PharmD documented as of this encounter Visit Diagnoses Diagnosis Moderate persistent asthma without complication documented in this encounter Additional Health Concerns Assessment Noted Time PHQ-9 Depression Total Score: 11 024 1:39 PM EDT documented as of this encounter Care Teams Travel Pt Relationship Specialty Start Date End Date Patito Wilhelm MD [address] [place] [address] PCP - General Family Medicine 11/13/18 Wilber Christie, PennyD [address] [place] [address] Pharmacist Internal Medicine 01/28/23 documented as of this encounter
--- OUTSIDE RECORDS SUMMARY | 2024-12-26 12:42 | XMS_ITS | Encounter Summary ---
Author Organization [employer] Address 75 [facility] 7t [place] [address] Care Team Providers Care Reinforced Ironworker Name Role Phone Patito Wilhelm MD Primary Care Provider [phone] Wilber Christie PharmD Unavailable [phone] Reason for Visit * Reason Onset Date Comments Med Refill 02/07/2023 Encounter Details Date Type Department Care Team (Late st Contact Info) Description 02/07/2023 Telephone [facility] [address] [place] [address] Patito Wilhelm MD [address] [place], [place] [phone] Med Refill Social History Tobacco Use Types [...] Description 01/23/2025 2:30 PM EDT Medication Management [address] [address] Wilber Christie, PharmD [address] [place] [address] 02/04/2025 3:00 PM EDT Office Visit [address] [address] Patito Wilhelm MD [address] [place] [address] 03/12/2025 11:00 AM EST Office Visit [address] [address] documented as of this encounter Goals Goal Patient Goal Type Associated Problems Recent Progress Patient-Stated? Author Blood Pressure < 140/90 Blood Pressure 150/73( 025 5:11 PM EDT) No Wilber Christie, PharmD documented as of this encounter Visit Diagnoses Not on filedocumented in this encounter Additional Health Concerns Assessment Noted Time PHQ-9 Depression Total Score: 6 07/27/19 23 1:10 PM EDT documented as of this encounter Care Teams Reinforced Ironworker Relationship Specialty Start Date End Date Patito Wilhelm MD [address] [place] [address] PCP - General Family Medicine 11/13/18 Wilber Christie, PennyD [address] [place] [address] Pharmacist Internal Medicine 01/28/23 documented as of this encounter
--- OUTSIDE RECORDS SUMMARY | 2024-12-26 12:42 | XMS_ITS | Encounter Summary ---
Author Organization [employer] Address [address] [facility] 7t [place] [address] Care Team Providers Care Metal Slitter Name Role Phone Patito Wilhelm MD Primary Care Provider [phone] Wilber Christie PharmD Unavailable [phone] Reason for Visit * Reason Onset Date Comments Med Refill 07/11/2024 Encounter Details Date Type Department Care Team (Late st Contact Info) Description 07/11/2024 Telephone [facility] [address] [place] [address] Patito Wilhelm MD [address] [place] [address] Med Refill Social History Tobacco Use Types [...] 5-325 MG tablet To be sent to: [address] [address] documented in this encounter Plan of Treatment Upcoming Encounters Date Type Department Care Team (Late st Contact Info) Description 01/23/2025 2:30 PM EDT Medication Management [facility] [address] [place] [address] Wilber Christie, PennyD [address] [place] [address] 02/04/2025 3:00 PM EDT Office Visit [facility] [address] [place] [address] Patito Wilhelm MD [address] [place], [place] [phone] 03/12/2025 11:00 AM EST Office Visit [facility] [address] [place] [address] documented as of this encounter Goals Goal Patient Goal Type Associated Problems Recent Progress Patient-Stated? Author Blood Pressure < 140/90 Blood Pressure 150/73(2024 5:11 PM EDT) No Wilber Christie PharmD Hemoglobin A1c < 7 Result Component 6.1( 3:12 PM EDT) No Wilber Christie, Kaia documented as of this encounter Visit Diagnoses Not on filedocumented in this encounter Additional Health Concerns Assessment Noted Time PHQ-9 Depression Total Score: 11 024 1:39 PM EDT documented as of this encounter Care Teams Metal Slitter Relationship Specialty Start Date End Date Patito Wilhelm MD [address] [place] [address] PCP - General Family Medicine 11/13/18 Wilber Christie, PennyD [address] [place] [address] Pharmacist Internal Medicine 01/28/23 documented as of this encounter
--- OUTSIDE RECORDS SUMMARY | 2024-12-26 12:42 | XMS_ITS | Encounter Summary ---
Author Organization [employer] Address [address] [place] [address] [address], [place] [address] Care Team Providers Care Mapping Analyst Name Role Phone Patito Wilhelm MD Primary Care Provider Wilber Christie PharmD Unavailable Reason for Visit * Reason Comments Med Refill Encounter Details Date Type Department Care Team (Late st Contact Info) Description 01/13/2023 Refill [facility] [address] [place] [address] Ashley Goodman MD [address] [place], [place] [phone] Chronic right shoulder pain Social History Tobacco [...] Department Care Team (Late Contact Info) Description 01/23/2025 2:30 PM EDT Medication Management [facility] [address] [place] [address] Wilber Christie, PharmD [address] [place] [address] 02/04/2025 3:00 PM EDT Office Visit [address] [address] Patito Wilhelm MD [address] [place] [phone] 03/12/2025 11:00 AM EST Office Visit [address] [address] documented as of this encounter Visit Diagnoses Diagnosis Chronic right shoulder pain Pain in joint, shoulder region documented in this encounter Additional Health Concerns Assessment Noted Time PHQ-9 Depression Total Score: 6 07/27/19 1:10 PM EDT documented as of this encounter Care Teams Mapping Analyst Relationship Specialty Start Date End Date Patito Wilhelm MD [address] [place] [phone] PCP - General Family Medicine 11/13/18 Wilber Christie, PharmD [address] [place] [phone] Pharmacist Internal Medicine 01/28/23 documented as of this encounter
--- OUTSIDE RECORDS SUMMARY | 2024-12-26 12:42 | XMS_ITS | Encounter Summary ---
Author Organization [employer] Address [address] [facility] 7t [place] [address] Care Team Providers Care Rotary Rig Engine Operator Name Role Phone Patito Wilhelm MD Primary Care Provider [phone] Wilber Christie PharmD Unavailable [phone] Reason for Visit * Reason Onset Date Comments Medication Question 06/09/2023 Encounter Details Date Type Department Care Team ([facility] st Contact Info) Description 06/09/2023 Telephone [facility] [address] [place], [place] [phone] Patito Wilhelm MD [address] [place], [place] [phone] Medication Question Social History Tobacco Use Types [...] If any questions please contact pt at [phone]. documented in this encounter Plan of Treatment Upcoming Encounters Date Type Department Care Team (Late st Contact Info) Description 01/23/2025 2:30 PM EDT Medication Management [facility] MED[facility]INE [address] [place] [phone] Wilber Christie, PharmKit [address] [place] [phone] 02/04/2025 3:00 PM EDT Office Visit [facility] [address] [place] [address] Patito Wilhelm MD [address] [place] [address] 03/12/2025 11:00 AM EST Office Visit [address] [address] documented as of this encounter Goals Goal [...] documented as of this encounter Care Teams Rotary Rig Engine Operator Relationship Specialty Start Date End Date Patito Wilhelm MD [address] [place] [address] PCP - General Family Medicine 11/13/18 Wilber Christie, PharmD [address] [place] [address] Pharmacist Internal Medicine 01/28/23 documented as of this encounter
--- OUTSIDE RECORDS SUMMARY | 2024-12-26 12:42 | XMS_ITS | Encounter Summary ---
Author Organization [employer] Address [address] [facility] [address] [place] [address] Care Team Providers Care Cloth Shrinking Tester Name Role Phone Patito Wilhelm MD Primary Care Provider [phone] Wilber Christie PharmD Unavailable [phone] Reason for Visit * Reason Onset Date Comments Nurse Triage 05/25/2024 Encounter Details Date Type Department Care Team ([facility] st Contact Info) Description 05/25/2024 Telephone [facility] [address] [place], [place] [phone] Patito Wilhelm MD [address] [place], [place] [phone] Nurse Triage Social History Tobacco Use Types [...] Will send this note to Walk in vest front presser and Nurses as Pt. May be coming [...] Call Ahead Before Visiting Your Doctor (or ESTATE AND TRUST TAX PRINCIPAL/PA) * Telephone Encounter - Jess Bunn - 05/25/2024 12:53 PM EST Symptoms: Low Blood Pressure - Caller Reports, Cough, Headache, Nausea But No Vomiting Outcome: Talk to a nurse or provider within 15 minutes Reason: Trouble walking The caller accepted this outcome. [phone] documented in this encounter Plan of Treatment Upcoming Encounters Date Type Department Care Team (Late st Contact Info) Description 01/23/2025 2:30 PM EDT Medication Management [address] [address] Wilber Christie, PennyD [address] [place] [phone] 02/04/2025 3:00 PM EDT Office Visit [address] [address] Patito Wilhelm MD [address] [place] [address] 03/12/2025 11:00 AM EST Office Visit [address] [address] documented as of this encounter Goals Goal [...] documented as of this encounter Care Teams Cloth Shrinking Tester Relationship Specialty Start Date End Date Patito Wilhelm MD [address] [place] [address] PCP - General Family Medicine 11/13/18 Wilber Christie PharmD [address] [place] [address] Pharmacist Internal Medicine 01/28/23 documented as of this encounter
--- OUTSIDE RECORDS SUMMARY | 2024-12-26 12:42 | XMS_ITS | Clinical Summary ---
Author Organization [employer] Address [address] [place] [address] Care Team Providers Care Financial Accounting Analyst Name Role Phone Patito Givens MD Primary Care Provider [phone] Wilber Christie PharmD Unavailable [phone] Allergies Active Allergy Reactions Criticality Noted Date Comments Aspirin Unknown 04/01/2010 Azithromycin Unknown,Anaphylaxis High 09/20/2013 Cyclobenzaprine Rash,Unknown,Hives High 12/10/2016 Glipizide Unknown 09/20/2013 Latex Rash High 01/05/2022 Levofloxacin Swelling,Other 11/15/2012 Rosiglitazone Other,Rash High 06/06/2021 Other reaction(s): Unknown Other reaction(s): Unknown Other reaction(s): Unknown Medications * This document contains information received from the source organization and may not represent a complete record from that organization. dicyclomine (Bentyl) 10 MG capsule TAKE 1 [...] polyneuropathy, with long-term current use of insulin ([facility]) Apply 1 Pad topically 2 times daily. 100 each 5 Active celecoxib (CeleBREX) 200 MG capsule TAKE 1 CAPSULE ORALLY EVERY 12 HOURS NEEDED FOR PAIN Active B Complex Vitamins (vitamin B complex) tablet Take 1 tablet by mouth 2 times daily. 180 tablet 3 Active cholecalciferol VITAMIN D (Vitamin D-3) 50 MCG (2000 UT) capsule Take 1 capsule (50 mcg) by mouth Once per day. 90 capsule Active valsartan-hydroCHL OROthiazide (Diovan-HCT) 320-25 MG tablet Take 1 tablet by mouth Once per day. 024 02/06 Active azelastine (Astelin) 0.1 % nasal spray [...] edema, with long-term current use of insulin ([facility]) Check blood glucose 3 times daily and as needed 100 each Active metoprolol succinate XL (Toprol XL) 50 [...] DIRECTED 3 TIMES A DAY 100 each 025 Active rosuvastatin (Crestor) 20 MG tabletIndications: Type 2 diabetes mellitus with both eyes affected by mild nonproliferative retinopathy without macular edema, with long-term current use of insulin (CMS/HCC) Take 1 tablet by mouth once daily 90 tablet 025 Active DULoxetine (Cymbalta) [address] capsule Take 1 capsule (20 mg) by mouth Once per day. Do not crush or chew. 90 capsule 3 025 Active guaiFENesin ([employer] Mucus Extended Release) 600 MG 12 hr tabletIndications: Bronchitis TAKE 1 TAB TWICE DAILY NEEDED FOR COUGH/PHLEGM. DO NOT CRUSH, CHEW, OR SPLIT. 40 tablet 025 Active capsaicin (Capzasin-HP) 0.1 % cream Apply thin layer by topical route up to 4 times daily for pain. 45 g 3 025 Active cetirizine (ZyrTEC) 10 MG tablet TAKE 1 TABLET BY MOUTH EVERY DAY IN THE MORNING 90 tablet 3 025 Active pregabalin (Lyrica) 75 MG capsuleIndications :Meralgia paresthetica, left TAKE 1 CAPSULE BY MOUTH, TWO TIMES EVERY DAY. 60 capsule 1 025 Active meclizine (Antivert) 25 MG tabletIndications: BPPV (benign paroxysmal positional vertigo), unspecified laterality Take 1 tablet (25 mg) by mouth if needed in the morning, at noon, and at bedtime for dizziness or nausea. 30 tablet 3 025 Active ciclopirox (Loprox) 0.77 % cream Apply topically 2 times daily. 90 g 1 025 Active Diclofenac Sodium 1 % gel Apply to painful area once or twice daily as needed 150 g 11 07/14/2 025 Active lidocaine (LMX 4) 4 % creamIndications:B urning sensation Apply topically if needed in the morning, at noon, in the evening, and at bedtime for mild pain. 28 g 1 025 11/27 Active Ozempic, 2 MG/DOSE, 8 MG/3ML solution pen-injectorIndica tions:Type 2 diabetes mellitus with both eyes affected by mild nonproliferative retinopathy without macular edema, with long-term current use of insulin (CMS/[facility]) INJECT 0.75 ML (2 MG) UNDER THE SKIN 1 (ONE) TIME PER WEEK. 3 mL 1 Active oxyCODONE-acetamin ophen (Percocet) 5-325 MG tabletIndications: Chronic back pain, unspecified back location, unspecified back pain laterality Take 1 tablet by mouth every 12 (twelve) hours if needed for severe pain for up to 28 days. 56 tablet 025 01/07 Active montelukast (Singulair) 10 MG tabletIndications: Moderate persistent asthma without complication TAKE 1 TABLET BY MOUTH EVERY DAY IN THE MORNING 90 tablet 3 Active montelukast (Singulair) 10 MG tabletIndications: Moderate persistent asthma without complication Take 1 tablet (10 mg) by mouth in the morning. 90 tablet 3 024 12/24 Discontinued Semaglutide, 2 MG/DOSE, (Ozempic, 2 MG/DOSE,) 8 MG/3ML solution pen-injectorIndica tions:Type 2 diabetes mellitus with both eyes affected by mild nonproliferative retinopathy without macular edema, with long-term current use of insulin (CMS/[facility]) Inject 0.75 mL (2 mg) under the skin 1 (one) time per week. 3 mL 1 025 12/03 Discontinued oxyCODONE-acetamin ophen (Percocet) 5-325 MG tabletIndications: Chronic back pain, unspecified back location, unspecified back pain laterality Take 1 tablet by mouth every 12 (twelve) hours if needed for severe pain for up to 28 days. 56 tablet 025 12/10 Discontinued( Reorder (will not trigger notification to Pharmacy)) Active Problems Problem Noted Date Diagnosed Date Burning sensation 11/27/2024 Assessment & Plan (11/27/2024 5:33 PM EDT): Neuropathy? C/w pregabaline as prescribed I will prescribe local lidocaine cream F/u with PCP Long-term current use of opiate analgesic 2024 Overview (10/09/2024): Medication: Percocet 5/325mg Q12H PRN Indication: lumbar radiculopathy, fibromyalgia Last COLOR DEVELOPER Agreement: 07/06/24 COLOR DEVELOPER visits Q3-4 months Assessment & Plan (12/11/2024 2:01 PM EDT): Timeline: - 09/11/24: Group - utox/pill count as expected - 10/09/24: Group - utox/pill count as expected - 01/11/25: Group - utox/pill count as expected Assessment & Plan (10/09/2024 6:11 PM EDT): Timeline: - 09/11/24: Group - utox/pill count as expected - 10/09/24: Group - utox/pill count as expected Generalized abdominal pain 03/27/2024 Assessment & Plan (11/10/2024 6:26 AM EDT): - mostly in right lower quadrant pain. Pt associates pain with reported hernia. Last CT in August 2024 showed lower midline anterior abdominal hernia containing fat. - refer to general surgeon for further evaluation and management Assessment & Plan (03/27/2024 4:38 PM EST): [...] nasal spray Fibromyalgia 12/12/2023 Assessment & Plan (10/09/2024 6:15 PM EDT): See below Assessment & Plan (09/11/2024 5:21 PM EDT): -Good engagement and participation with Group Medical Visit model, today was first visit. -Encouraged multifactorial approach to pain control including pharm and non- pharm modalities -UTOX and Pill count as expected Assessment & Plan (12/12/2023 4:54 AM EDT): [...] dizziness Lumbosacral radiculopathy 06/01/2023 Assessment & Plan (12/11/2024 2:00 PM EDT): - Cont following with specialists - Good engagement and participation with Group Medical Visit model - Encouraged multifactorial approach to pain control including pharm and non- pharm modalities - UTOX and Pill count as expected Assessment & Plan (10/29/2024 12:57 PM EDT): -Seen by mural painter on 03/30/23 -Received lumbar facet block bilateral on 04/28/22 -Received DEE L5-S1 on 04/19/23 -Continue judicious use of oxycodone-APAP and pregabalin -Continue topical diclofenac Assessment & Plan (10/09/2024 6:13 PM EDT): - Cont following with specialists - Good engagement and participation with Group Medical Visit model - Encouraged multifactorial approach to pain control including pharm and non- pharm modalities - UTOX and Pill count as expected Assessment & Plan (12/12/2023 4:47 AM EDT): -Seen by mural painter on 03/30/23 -Received lumbar facet block bilateral on 04/28/22 -Received DEE L5-S1 on 04/19/23 -Continue judicious use of oxycodone-APAP and pregabalin -Continue topical diclofenac Assessment & Plan (12/12/2023 4:55 AM EDT): >>ASSESSMENT AND PLAN FOR LUMBOSACRAL RADICULOPATHY WRITTEN ON 06/04/2023 5:53 AM BY PATITO GIVENS MD -Seen by mural painter on 03/30/23 -Received lumbar facet block [...] for diabetes Dyslipidemia 01/10/2023 Assessment & Plan (10/31/2024 7:57 PM EDT): - last lipid profile: 07/06/24 TC 171; TG 143; HDL 43; LDL 100 - current medication: Atorvastatin 10 mg at bedtime, consider increasing as tolerated - continue working on lifestyle modification Assessment & Plan (03/27/2024 3:58 PM EST): [...] by Dr. Stratton in 2014 - Cured Current use of insulin 08/09/2022 Macromastia 07/26/2022 [...] CT scan - optimize Tx with dicyclomine Meralgia paresthetica 05/09/2022 Assessment & Plan (10/29/2024 12:57 PM EDT): -followed by pain management Assessment & Plan (04/02/2023 6:09 AM EST): -followed by pain management Assessment & Plan (05/14/2022 4:47 PM EST): -followed by pain management -pt is now having similar sxs on her right thigh Gallbladder sludge 05/09/2022 Recurrent major depressive episodes, moderate Assessment & [...] (12/12/2023 4:55 AM EDT): - Followed by [facility], last appt in October 2023 - Prescribed dicyclomine - Continue as prescribed Assessment & Plan (08/30/2023 2:37 PM EDT): - Followed by [facility], last appt in July 2022 - Prescribed dicyclomine - Continue as prescribed Assessment & Plan (04/02/2023 5:59 AM EST): - Followed by GI, last appt in July 2022 - Prescribed dicyclomine - Continue as prescribed Assessment & Plan (08/09/2022 5:24 AM EDT): - Followed by GI, last appt in July 2022 - Prescribed dicyclomine - Continue as prescribed Trochanteric bursitis of right hip 02/09/2017 Assessment & Plan (08/09/2022 5:26 AM EDT): - recommended to check with mural painter if she can receive steroid injection Chronic interstitial cystitis 08/14/2012 Assessment & Plan (08/30/2023 2:38 PM EDT): -[place] [facility] [place] seen on 02/22[place] -Prescribed tamsulosin, no longer taking Assessment & Plan (04/02/2023 6:05 AM EST): -[place] [facility] [place] seen on 02/22/22 -Prescribed tamsulosin, no longer taking Assessment & Plan (05/14/2022 5:02 PM EST): -[place] [facility] [place] seen on 02/22/22 -Prescribed tamsulosin Chronic low back pain 08/14/2012 Assessment & Plan (11/10/2024 6:27 AM EDT): -Seen by mural painter on 02/11/23 -Received lumbar facet block bilateral on 04/28/22 -Received DEE L5-S1 on 04/19/23 -Continue judicious use of oxycodone-APAP and pregabalin -Continue topical diclofenac -Continue following with mural painter - Continue attending chronic pain group -Encouraged to continue PT Assessment & Plan (12/12/2023 4:52 AM EDT): -Seen by mural painter on 02/11/23 -Received lumbar facet block bilateral on 04/28/22 -Received DEE L5-S1 on 04/19/23 -Continue judicious use of oxycodone-APAP and pregabalin -Continue topical diclofenac -Continue following with mural painter -Encouraged to continue PT Assessment & Plan (08/30/2023 2:41 PM EDT): -Seen by mural painter on 02/11/23 -Received lumbar facet block bilateral on 04/28/22 -Received DEE L5-S1 on 04/19/23 -Continue judicious use of oxycodone-APAP and pregabalin -Continue topical diclofenac -Continue following with mural painter -Encouraged to continue PT Assessment & Plan (06/04/2023 6:04 AM EST): -Seen by mural painter on 02/11/23 -Received lumbar facet block bilateral on 04/28/22 -Received DEE L5-S1 on 04/19/23 -Continue judicious use of oxycodone-APAP and pregabalin -Continue topical diclofenac -Continue following with mural painter -Encouraged to continue PT Assessment & Plan (04/02/2023 6:10 AM EST): -Seen by mural painter on 02/11/23 -Received lumbar facet block bilateral on 04/28/22 -Scheduled for DEE L5-S1 soon -Continue judicious use of oxycodone-APAP and pregabalin -Continue topical diclofenac Assessment & Plan (01/10/2023 5:38 PM EDT): -Seen by mural painter on 12/16/22, yet mainly for left knee pain -Received lumbar facet block bilateral on 04/28/22 -Continue judicious use of oxycodone-APAP and pregabalin -Continue topical diclofenac Assessment & Plan (12/26/2022 5:36 AM EDT): -Seen by mural painter on 02/04/22. -Received lumbar facet block bilateral on 04/28/22 Assessment & Plan (05/14/2022 5:00 PM EST): -Seen by mural painter on 02/04/22. -Received lumbar facet block bilateral on 04/28/22 Hypertension 11/25/2011 Assessment & Plan (10/29/2024 12:56 PM EDT): -Goal BP < 140/90 per JNC-8 and < 130/80 per ACC/AHA guideline (Treatment threshold >= 130/80 ) -History of questionable medication adherence -In a setting of chronic pain -Co-managed with pharmacist, pinsetter mechanic helper, and power electronics engineer -s/p 24-hour BP monitoring by nephrology; recommended sleep study and increased metoprolol -Continue checking home BP -Continue working on lifestyle modification -Continue metoprolol succinate 75 mg daily -Continue Valsartan to 320mg daily -Treatment Hx: lisinpril was discontinued due to cough;Losartan was self- discontinued due to dry mouth; amlodipine was self-discontinued due to dry mouth; metoprolol was increased by power electronics engineer from 50 mg to 75 mg. Recently BP has been stable, so Dietetic Tech tapered Metoprolol down to 25 mg, but pt started to have palpitations and self increased back to 50 mg. Assessment & Plan (03/27/2024 3:57 PM EST): -Goal BP < 140/90 per JNC-8 and < 130/80 per ACC/AHA guideline (Treatment threshold >= 130/80 ) -History of questionable medication adherence -In a setting of chronic pain -Co-managed with pharmacist, pinsetter mechanic helper, and power electronics engineer -s/p 24-hour BP monitoring by nephrology; recommended sleep study and increased metoprolol -Continue checking home BP -Continue working on lifestyle modification -Continue metoprolol succinate 75 mg daily -Continue Valsartan to 320mg daily -Treatment Hx: lisinpril was discontinued due to cough;Losartan was self- discontinued due to dry mouth; amlodipine was self-discontinued due to dry mouth; metoprolol was increased by power electronics engineer from 50 mg to 75 mg. Recently BP has been stable, so Dietetic Tech tapered Metoprolol down to 25 mg, but pt started to have palpitations and self increased back to 50 mg. Assessment & Plan (12/12/2023 4:46 AM EDT): -Goal BP < 140/90 per JNC-8 and < 130/80 per ACC/AHA guideline (Treatment threshold >= 130/80 ) -History of questionable medication adherence -In a setting of chronic pain -Co-managed with pharmacist, pinsetter mechanic helper, and power electronics engineer -s/p 24-hour BP monitoring by nephrology; recommended sleep study and increased metoprolol -Continue checking home BP -Continue working on lifestyle modification -Continue metoprolol succinate 75 mg daily -Continue Valsartan to 320mg daily -Treatment Hx: lisinpril was discontinued due to cough;Losartan was self- discontinued due to dry mouth; amlodipine was self-discontinued due to dry mouth; metoprolol was increased by power electronics engineer from 50 mg to 75 mg Assessment & Plan (08/30/2023 2:37 PM EDT): -Goal BP < 140/90 per JNC-8 and < 130/80 per ACC/AHA guideline (Treatment threshold >= 130/80 ) -Questionable medication adherence -Co-managed with pharmacist and pinsetter mechanic helper -Continue checking home BP -Continue working on [...] -Questionable medication adherence -Co-managed with pharmacist and pinsetter mechanic helper -Continue checking home BP -Continue working on [...] -Questionable medication adherence -Co-managed with pharmacist and pinsetter mechanic helper -Continue checking home BP -Continue working on [...] -CDTM referral Asthma 09/20/2011 Assessment & Plan (11/10/2024 6:30 AM EDT): -Followed by [facility] pulmonology, last seen on 10/10/2024, -Currently prescribed budesonide / formoterol (Symbicort) and tiotropium (Spiriva) as maintenance -Continue albuterol HFA prn as rescue -Treatment Hx: Previously on fluticasone (Flovent), which was changed to mometasone / formoterol (Dulera). Mometasone / formoterol (Dulera) was changed to budesonide / formoterol (Symbicort) in 2023 - Improved medication adherence. Consider SMART. Assessment & Plan (03/27/2024 3:55 PM EST): -Followed by [facility] pulmonology, last seen on 03/28/23, switched mometasone / formoterol (Dulera) to budesonide / formoterol (Symbicort) -Questionable adherence to medications according to refill history, she is unaware of budesonide / formoterol (Symbicort) prescription -Reviewed her medications today and discussed about the importance of adherence; Advised to shredder picker her budesonide / formoterol (Symbicort) and get her lab done prior to next appointment with print color operator -Currently prescribed budesonide / formoterol (Symbicort) and tiotropium (Spiriva) as maintenance -Continue albuterol HFA prn as rescue -Treatment Hx: Previously on fluticasone (Flovent), which was changed to mometasone / formoterol (Dulera). Mometasone / formoterol (Dulera) was changed to budesonide / formoterol (Symbicort) most recently -Reviewed the importance of medication adherence and recommended to contact pharmacist and print color operator for clarification of currently prescribed inhalers. Assessment & Plan (12/06/2023 1:45 PM EDT): -Followed by [facility] pulmonology, last seen on 03/28/23, switched mometasone / formoterol (Dulera) to budesonide / formoterol (Symbicort) -Questionable adherence to medications according to refill history, she is unaware of budesonide / formoterol (Symbicort) prescription -Reviewed her medications today and discussed about the importance of adherence; Advised to shredder picker her budesonide / formoterol (Symbicort) and get her lab done prior to next appointment with print color operator -Currently prescribed budesonide / formoterol (Symbicort) and tiotropium (Spiriva) as maintenance -Continue albuterol HFA prn as rescue -Treatment Hx: Previously on fluticasone (Flovent), which was changed to mometasone / formoterol (Dulera). Mometasone / formoterol (Dulera) was changed to budesonide / formoterol (Symbicort) most recently -Reviewed the importance of medication adherence and recommended to contact pharmacist and print color operator for clarification of currently prescribed inhalers. Assessment & Plan (08/30/2023 2:37 PM EDT): -Followed by [facility] pulmonology, last seen on 03/28/23, switched mometasone / formoterol (Dulera) to budesonide / formoterol (Symbicort) -Questionable adherence to medications according to refill history, she is unaware of budesonide / formoterol (Symbicort) prescription -Reviewed her medications today and discussed about the importance of adherence; Advised to shredder picker her budesonide / formoterol (Symbicort) and get her lab done prior to next appointment with print color operator -Currently prescribed budesonide / formoterol (Symbicort) and tiotropium (Spiriva) as maintenance -Continue albuterol HFA prn as rescue -Treatment Hx: Previously on fluticasone (Flovent), which was changed to mometasone / formoterol (Dulera). Mometasone / formoterol (Dulera) was changed to budesonide / formoterol (Symbicort) most recently -Reviewed the importance of medication adherence and recommended to contact pharmacist and print color operator for clarification of currently prescribed inhalers. Assessment & Plan (06/04/2023 5:58 AM EST): -Followed by [facility] pulmonology, last seen on 03/28/23, switched mometasone / formoterol (Dulera) to budesonide / formoterol (Symbicort) -Questionable adherence to medications according to refill history, she is unaware of budesonide / formoterol (Symbicort) prescription -Reviewed her medications today and discussed about the importance of adherence; Advised to shredder picker her budesonide / formoterol (Symbicort) and get her lab done prior to next appointment with print color operator -Currently prescribed budesonide / formoterol (Symbicort) and tiotropium (Spiriva) as maintenance -Continue albuterol HFA prn as rescue -Treatment Hx: Previously on fluticasone (Flovent), which was changed to mometasone / formoterol (Dulera). Mometasone / formoterol (Dulera) was changed to budesonide / formoterol (Symbicort) most recently -Reviewed the importance of medication adherence and recommended to contact pharmacist and print color operator for clarification of currently prescribed inhalers. Assessment & Plan (04/02/2023 5:57 AM EST): -Followed by [facility] pulmonology, last seen on 11/30/21 -Questionable adherence to medications according to refill history -Reviewed her medications today and discussed about the importance of adherence -Continue mometasone / formoterol (Dulera) and tiotropium (Spiriva) as maintenance -Continue albuterol HFA prn as rescue -Urged to schedule appt with print color operator; pt verbalized understanding Assessment & Plan (01/10/2023 2:06 PM EDT): -Followed by [facility] pulmonology, last seen on 11/30/21 -Questionable adherence to medications according to refill history -Reviewed her medications today and discussed about the importance of adherence -Continue Dulera and Spiriva as maintenance -Continue albuterol HFA prn as rescue -Consider referring to MTM -Urged to schedule appt with print color operator; pt verbalized understanding Assessment & Plan (12/26/2022 5:30 AM EDT): -Followed by [facility] pulmonology, last seen on 11/30/21 -Questionable adherence to medications according to refill history -Reviewed her medications today and discussed about the importance of adherence -Continue Dulera and Spiriva as maintenance -Continue albuterol HFA prn as rescue -Consider referring to MTM -Urged to schedule appt with print color operator; pt verbalized understanding Assessment & Plan (08/09/2022 5:23 AM EDT): -Followed by [facility] pulmonology, last seen on 11/30/21 -Reviewed her medications today and discussed about the importance of adherence -Continue Dulera and Spiriva as maintenance - Continue albuterol HFA prn as rescue -Consider referring to MTM Assessment & Plan (05/14/2022 4:42 PM EST): -Followed by [facility] pulmonology, last seen on 11/30/21 -Mild wheezing today -Pt is being prescribed Dulera and Spiriva as maintanance, but patient is uncertain and medication refill history suggests questionable adherence. -Consider referring to MTM Type 2 diabetes mellitus 09/20/2011 Assessment & Plan (11/10/2024 6:24 AM EDT): -A1c 6.1% 10/29/24 -Continue working on lifestyle modification. -Being prescribed Novolog 70/30 25 units qAM and 25 units qPM, advised to decrease to 24 units BID due to hypoglycemia -Continue Trulicity from 3.0 mg weekly -Previous Tx: metformin - discontinued when she had active Hep C per pt. -Check the satus of FreeStyle Rachael -Last eye exam: 10/24/24 -Last foot exam: 10/29/24 -Last microalbumin test: 12/09/22 UACR 8.8 - Last lipid profile: 07/06/24 TC 171; TG 143; HDL 43; LDL 100 Last dental exam: Immunizations: up to date Assessment & Plan (03/27/2024 3:58 PM EST): [...] FreeStyle Rachael -Last eye exam: 05/14/21 at [facility] eye care, no retinopathy -Last foot exam: 10/20/21 -Last microalbumin test: 10/20/21 UACR 12 Last lipid profile: 10/20/21 TC 197; 142; HDL 64; LDL 108. Last dental exam: Immunizations: up to date Knee pain 09/20/2011 Assessment & Plan (06/02/2023 9:41 AM EST): - Following with [facility] Digital Learning Platforms Manager, last seen in Jan 2023 - XR on 12/16/22 showed : mild Osteoarthritis - Received intraarticular Euflexxa (hyaluronate derivative) Injection x 3 doses in 2022 - Continue current Tx plan per mural painter Assessment & Plan (04/02/2023 6:14 AM EST): - Following with [facility] [employer] Manager, last seen in Jan 2023 - XR on 12/16/22 showed : mild Osteoarthritis - Received intraarticular Euflexxa (hyaluronate derivative) Injection x 3 doses in 2022 - Continue current Tx plan per mural painter Assessment & Plan (01/10/2023 5:41 PM EDT): - Following with [facility] [employer] Manager, last seen on 12/16/22, started on Euflexxa injection - XR on 12/16/22 showed : mild Osteoarthritis - Currently receiving intraarticular Euflexxa (hyaluronate derivative) Injection - Continue current Tx plan per mural painter Resolved Problems Problem Noted Date Diagnosed [...] 02/09/2017 05/14/2022 Hepatitis C 09/20/2011 04/02/2023 Encounters * This document contains information received from the source organization and may not represent a complete record from that organization. Date Type Department Care Team Description 12/24/2024 Refill [facility] [place] [address] Patito Givens MD Moderate persistent asthma without complication 12/18/2024 Telephone [facility] [place] [address] Patito Givens MD Appointment Request 12/11/2024 11:00 AM EDT Office Visit [facility] [place] [address] Kori Carrillo, DAMION Lumbosacral radiculopathy (Primary Dx); Chronic bilateral low back pain, unspecified whether sciatica present; Long-term current use of opiate analgesic 12/11/2024 Travel 12/10/2024 Refill [facility] [address] [place], [place] [id number] Tosha Phillips RN Chronic back pain, unspecified back location, unspecified back pain laterality 12/10/2024 Telephone [facility] [address] [place] [address] Patito Givens MD Med Refill 12/03/2024 Telephone [facility] [address] [place] [address] Patito Givens MD Medication Question 12/01/2024 Refill [facility] [address] [place] [address] Kori Carrillo FNP Type 2 diabetes mellitus with both eyes affected by mild nonproliferative retinopathy without macular edema, with long-term current use of insulin ([facility]) 11/27/2024 5:40 PM EDT Office Visit [facility] [address] [place] [address] Ashley Rangel MD Burning sensation 11/27/2024 Travel 11/15/2024 Telephone [facility] [address] [place] [address] Patito Givens MD Durable Medical Equipment ([facility] [employer] D[employer] Request: Bed Rail) 11/12/2024 Refill [facility] [address] [place] [address] Patito Givens MD Chronic back pain, unspecified back location, unspecified back pain laterality 10/29/2024 3:15 PM EDT Office Visit [facility] [address] [place] [address] Patito Givens MD Primary hypertension (Primary Dx); Dyslipidemia; Type 2 diabetes mellitus with both eyes affected by mild nonproliferative retinopathy without macular edema, with long-term current use of insulin (CMS/HCC); Moderate persistent asthma without complication; Chronic bilateral low back pain, unspecified whether sciatica present; Lumbosacral radiculopathy; Meralgia paresthetica, unspecified laterality; Generalized abdominal pain; BPPV (benign paroxysmal positional vertigo), unspecified laterality; Encounter for immunization; Ventral hernia without obstruction or gangrene; Type 2 diabetes mellitus with diabetic polyneuropathy, with long-term current use of insulin ([facility]); Current use of insulin ([facility]) 10/29/2024 Travel 10/26/2024 Telephone [facility] [address] [place] [address] Patito Givens MD 10/16/2024 Refill [facility] [address] [place] [address] Patito Givens MD Meralgia paresthetica, left 10/10/2024 Refill [facility] [address] [place] [address] Patito Givens MD Chronic back pain, unspecified back location, unspecified back pain laterality 10/09/2024 1:00 PM EDT Office Visit [facility] [address] [place] [address] Atif, Jessica, OD Mild nonproliferative diabetic retinopathy of both eyes without macular edema associated with type 2 diabetes mellitus ([facility]) (Primary Dx); RPE mottling of macula; Hypertensive retinopathy of both eyes; White without pressure of peripheral retina of both eyes; Combined forms of age-related cataract of both eyes; Presbyopia 10/09/2024 11:00 AM EDT Office Visit [facility] [address] [place] [address] Kori Carrillo FNP Lumbosacral radiculopathy (Primary Dx); Fibromyalgia; Long-term current use of opiate analgesic; Type 2 diabetes mellitus with both eyes affected by mild nonproliferative retinopathy without macular edema, with long-term current use of insulin ([facility]) 10/09/2024 Travel from Last 3 Months Immunizations Immunization Administration Dates Next Due Hep A, Adult 10/29/2024 Influenza injectable quadriv alent IIV4 with preservative 02/24/2018 Influenza injectable quadriv alent preservative free 01/10/2023,01/05/2022,02/06/2021,01/16,02/12/2019,02/06/2017 Influenza, IIV3, injectable 03/08/2023,1 ,12/31/2020,01/16,01/23/2018,01/03/2014,01/28/2011 Influenza, seasonal, injecta ble, preservative free 03/12/2024 Pfizer Covid-19 Vaccine 12+ 03/21/2023, 2 Pfizer Covid-19 Vaccine 12+ huey-sucrose (Long [...] is your housing situation today? I have sandrareilly hernandez 03/27/[address] you [...] Sign Reading Time Taken Comments Blood Pressure 150/73 11/27/2024 5:11 PM EDT Pulse 80 11/27/2024 5:11 PM EDT Temperature 36.8 C (98.2 F) 11/27/2024 5:11 PM EDT Respiratory Rate 17 11/27/2024 5:11 PM EDT Oxygen Saturation 94% 11/27/2024 5:11 PM EDT Inhaled Oxygen Concentration - - Weight 67.9 kg (149 lb 12.8 oz) 11/27/2024 5:11 PM EDT Height 149.9 cm (4' 11 ) 10/29/2024 3:05 PM EDT Body Mass Index 30.26 10/29/2024 3:05 PM EDT Plan of Treatment Upcoming Encounters Date Type Department Care Team (Late st Contact Info) Description 01/23/2025 2:30 PM EDT Medication Management [address] [address] Wilber Christie, PharmD [address] [place] [phone] 02/04/2025 3:00 PM EDT Office Visit [address] [address] Patito Givens MD [address] [place] [address] 03/12/2025 11:00 AM EST Office Visit [address] [address] Health Maintenance Due Date Last Done Comments CT Colonography 1965 FIT DNA/Cologuard 1965 FIT 1965 FOBT 1965 HIV Screening 1965 Sigmoidoscopy 1965 Pap Smear 1986 HPV/Cotest 1995 Diabetes: Urine Protein Screening 12/10/2023 12/09/2022, 10/20/2021, 01/24/2020 Depression Monitoring 06/07/2024 12/06/2023, 024 COVID-19 Vaccine ( season) 2024 03/21/2023, 01/19/2022, 09/25/2021, Additional history exists Influenza Vaccine (#1) 2024 , 03/08/2023, 01/10/2023, Additional history exists Alcohol/Substance Use Screening 03/27/2025 03/27/2024 SDOH Screening 03/27/2025 03/27/2024 Diabetes: Hemoglobin A1C 05/01/2025 025, 06/11/2024, 03/12/2024, Additional history exists Hepatitis A Vaccines (2 of 2 - Risk 2-dose series) 05/01/2025 10/29/2024 Lipid Panel 07/06/2025 07/06/2024, 11/17, 10/20/2021, Additional history exists Eye Exam 10/09/2025 10/09/2024, 09/17, 10/09/2024, Additional history exists Diabetes: Foot Exam 10/29/2025 10/29/2024, 10/29/2024, 10/29/2024, Additional history exists Disability Screening 10/29/2025 10/29/2024 Tobacco Screening 11/10/2025 11/10/2024 Mammogram 03/27/2026 03/27/2024, 1208/2022, 03/19/2022, Additional history exists DTaP/Tdap/Td Vaccines (3 - Td or Tdap) 01/26/2033 01/26/2023, 11/15/2012, 01/14/2005 Colonoscopy 10/18/2033 10/19/2023, 10/19/2023 Colorectal Cancer Screening 10/18/2033 RSV Patients and Patients Aged 60 years or older (1 - 1-dose 75+ series) 2040 Zoster Vaccines Completed 01/17/2020, 05/18/2019 Pneumococcal Vaccine: 50+ Years Completed 10/08/2022, 05/10/2022, 02/13/2002 Cervical Cancer Screening Discontinued HIB Vaccines Aged Out No longer eligi [...] 3:12 PM EDT) No Wilber Christie PharmD Procedures Procedure Name Priority Date/Time Associated Diagnosis Comments POCT VINICIO-14 URINE DRUG SCREEN Routine 12/11/2024 11:29 AM EDT Chronic bilateral low back pain, unspecified whether sciatica present POCT GLYCOSYLATED HEMOGLOBIN (HGB A1C) Routine 10/29/2024 3:12 PM EDT Type 2 diabetes mellitus with both eyes affected by mild nonproliferative retinopathy without macular edema, with long-term current use of insulin ([facility]) POCT GLUCOSE Routine 10/29/2024 3:07 PM EDT Type 2 diabetes mellitus with both eyes affected by mild nonproliferative retinopathy without macular edema, with long-term current use of insulin ([facility]) POCT VINICIO-14 URINE DRUG SCREEN Routine 10/09/2024 1:41 PM EDT Long-term current use of opiate analgesic OCT, RETINA - OU - BOTH EYES Routine 10/09/2024 1:00 PM EDT Mild nonproliferative diabetic retinopathy of both eyes without macular edema associated with type 2 diabetes mellitus ([facility]) LIPID PANEL, STANDARD Routine 07/06/2024 11:02 AM EDT BI MAMMOGRAM SCREENING TOMOSYNTHESIS BILATERAL Routine 03/27/2024 1:50 PM EST HM COLONOSCOPY Routine 10/19/2023 ALBUMIN, RANDOM URINE W/CREATININE Routine 12/09/2022 1:02 PM EDT Type 2 diabetes mellitus with diabetic polyneuropathy, with long-term current use of insulin ([facility]) from Last 3 Months or Most Recently Relevant to Health Maintenance Results * (ABNORMAL) POCT VINICIO-14 Urine Drug Screen (12/11/2024 11:29 AM EDT) Only the most recent of2 resultswithin the time period is included. THC Negative Negative Cocaine Screen, Urine Negative Negative Opiate Screen, Urine Negative Negative Methamphetamine Screen Urine Negative Negative Amphetamine Screen, Urine Negative Negative Benzodiazepines Screen, Urine Negative Negative Barbiturate Screen, Urine Negative Negative Methadone Screen, Urine Negative Negative Buprenophine Screen, Urine Negative Negative TCA, Urine Negative Negative MDMA Urine Negative Negative ng/mL Oxycodone Screen, Urine Positive(A) Negative Phencyclidine (PCP), Urine Negative Negative Propoxyphene, Urine Negative Negative Fentanyl, Urine Negative Negative Urine Urine specimen obtained by clean catch procedure / Unknown 12/11/2024 11:29 AM EDT Tosha Amin RN - 12/11/2024 11:29 AM EDT .UTOX cup Lot#[id number] Exp. 01/22/26 Internal Pass Control Kori Carrillo DUBBING MACHINE OPERATOR POINT OF CARE TEST ENTER/EDIT ORDERABLES Final Result * (ABNORMAL) POCT glycosylated hemoglobin (Hgb A1c) (10/29/2024 3:12 PM EDT) Hemoglobin A1C 6.1(A) 4.0 - 5.7 % QC Media Lot # [id number] Lot# Expiration Date Blood Capillary blood specimen / Unknown 10/29/2024 3:12 PM EDT Patito Givens MD POINT OF CARE TEST ENTER/EDIT OR DERABLES Final Result * POCT glucose manually resulted (10/29/2024 3:07 PM EDT) Glucose Blood, POC 104 60 - 200 mg/dL QC Media Lot # [id number] Lot# Expiration Date Blood Capillary blood specimen / Unknown 10/29/2024 3:07 PM EDT Patito Givens MD POINT OF CARE TEST ENTER/EDIT OR DERABLES Final Result * OCT, Retina - OU - Both Eyes (10/09/2024 1:00 PM EDT) Narrative Jessica Srivastava, OD - 10/24/2024 4:05 PM EDT Images from the original result were not included. Right Eye Quality was good. Left Eye Quality was good. Notes OCT MACULA INTERPRETATION Optical Coherence Tomography Interpretation Report Measurements: OD OS Macula Thickness 242 microns 235 microns Test findings: OD: Normal foveal contour, no cystoid macular edema (CME), mild retinal pigment epithelium (RPE) mottling just temporal to fovea, no subretinal fluid (SRF) OS: Normal foveal contour, no cystoid macular edema (CME), mild retinal pigment epithelium (RPE) mottling just superior to fovea, no subretinal fluid (SRF) Impression and Plan: Mild non-proliferative diabetic retinopathy (NPDR) without cystoid macular edema (CME) in both eyes. Mild macular mottling in both eyes. No treatment necessary at this time. Will monitor in 1 year. us Jessica Srivastava OD OPHTH TOMOGRAPHY Final Result * (ABNORMAL) Lipid Panel, Standard (07/06/2024 11:02 AM EDT) Triglycerides 143 <150 mg/dL [facility] Comment:Desirable Triglyceri de: less than 150 mg/dLBorderline High Triglyceride 150-199 mg/dLHigh Triglyceride: 200-499 mg/dLVery High Triglyceride: greater than or equal to 5OO mg/dL Cholesterol 171 <200 mg/dL [facility] Comment:Desirable Cholestero l: less than 200 mg/dLBorderline High Cholesterol: 200-239 mg/dLHigh Cholesterol: greater than 239 mg/dL LDL Cholesterol Calculated 100(H) <100 mg/dL [facility] Comment:Desirable LDL: less than 100 mg/dLNear Optimal/Above Optimal LDL: 110- 129 mg/dLBorderline High LDL: 130-159 mg/dLHigh LDL: 160-189 mg/dLVery High LDL: greater than or equal to 190 mg/dL HDL Cholesterol 43 >40 mg/dL [facility] Comment:Desirable HDL: great er than 40 mg/dL Note: This HDL assay may give artificially low results in patients with liver disease. 07/06/2024 11:0 2 AM EDT 07/06/2024 1:13 PM EDT Patito Givens MD LAB BLOOD ORDERABLES Final Resul t [facility] [address] [place] [phone] * BI Mammogram Screening Tomosynthesis Bilateral (03/27/2024 1:50 PM EST) Anatomical Region Laterality Modality Breast Bilateral Mammography 03/27/2024 1:50 PM EST Narrative 04/02/2024 3:31 PM EST [facility] [address] [place] [address] Mammography Report Signed Patient: Ameena Tejada MR#: [id number] 33 : 1965 Acct:[id number] Age/Sex: 59 / F ADM Date: 03/27/24 Loc: JIM Attending Dr: Patito Givens MD Ordering Physician: Patito Givens MD Results: 2Benign F indings Date of Service: 03/27/24 Follow Up: 1 Year From Orig inal Mammogram Procedure(s): MM tomosynthesis screening BI Accession Number(s): [id number] cc: Patito Givens MD EXAMINATION: MM SCREENING [...] by: Mare Cardona DO 04/02/2024 03:28 PM [facility] Dictated By: Mare Cardona DO Signed By: <Electronically signed by Mare Cardona DO in OV> 04/02/24 1528 DD/ 1350 TD/TT: 03/27/24 1405 Pressure Controller: Procedure Note Donotuseinterpreter, Image - 04/02/2024 [facility] [address] [place], [place] [address] Mammography Report Signed Patient: King Tejada#: [id number] [birth year] : 1965Acct:[id number] Age/Sex: 59 / FADM Date: 03/27/24 Loc: HO.MAMMO Attending Dr: Patito Givens MD Ordering Physician: Patito Givens MDResults: 2Benign F indings Date of Service: 03/27/24Follow Up: 1 Year From Orig inal Mammogram Procedure(s): MM tomosynthesis screening BI Accession Number(s): [id number] cc: Patito Givens MD EXAMINATION: MM SCREENING [...] by: Mare Cardona DO 04/02/2024 03:28 PM [facility] Dictated By: Mare Cardona DO Signed By: <Electronically signed by Mare Cardona DO in OV> 04/02/24 1528 DD/ 1350 TD/TT: 03/27/24 1405 Pressure Controller: Patito Givens MD [facility] PROCEDURES Edited Result - Final * Hm Colonoscopy (10/19/2023) Pathologist [facility] Colonoscopy Normal Normal Narrative Christine Ramirez - 10/19/2023 Recommended 10 year follow up . see external hospital admission note on 10/19/2023 Historical Provider HEALTH MAINTENANCE Final Result * Albumin, Random Urine W/Creatinine (12/09/2022 1:02 PM EDT) Creatinine, Urine 170.12 mg/dL [facility] Microalbumin Urine 15.0 mg/L [facility] Microalbum Creatinine Ratio Ur 8.8 <30 ug/mg cr [facility] Comment:Albumin/Creatinine R atio Reference Ranges: Normal: < 30 ug/mg creatinine Microalbuminuria: 30 - 300 ug/mg creatinineClinical Albuminuria: > 300 ug/mg creatinine Urine 12/09/2022 1:02 PM EDT 12/09/2022 3:56 PM EDT us Patito Givens MD LAB URINE ORDERABLES Final Resul t [facility] [address] [place] [address] [phone] from Last 3 Months or Most Recently Relevant to Health Maintenance Insurance JOSE [employer]VERT [id number] Care Teams Financial Accounting Analyst Relationship Specialty Start Date End Date Patito Givens MD [address] [place] [address] PCP - General Family Medicine 11/13/18 Wilber Christie, PharmD [address] [place] [phone] Pharmacist Internal Medicine 01/28/23
--- OUTSIDE RECORDS SUMMARY | 2024-12-26 12:42 | XMS_ITS | Encounter Summary ---
Author Organization [employer] Address [address] [facility] [address] [place] [address] Care Team Providers Care Senior Loan Officer Name Role Phone Patito Wilhelm MD Primary Care Provider [phone] Wilber Christie PharmD Unavailable [phone] Reason for Visit * Reason Onset Date Comments Med Refill 04/06/2023 Encounter Details Date Type Department Care Team (Late st Contact Info) Description 04/06/2023 Telephone [facility] [address] [place] [address] Patito Wilhelm MD [address] [place], [place] [phone] Med Refill Social History Tobacco Use Types [...] (Percocet) 5-325 MG tablet Please sent to [facility]/pharmacy #[id number] [facility] [place] - [address] [place] [address] documented in this encounter Plan of Treatment Upcoming Encounters Date Type Department Care Team (Late st Contact Info) Description 01/23/2025 2:30 PM EDT Medication Management [facility] [address] [place] [phone] Wilber Christie, PharmD [address] [place] [address] 02/04/2025 3:00 PM EDT Office Visit [facility] [address] [place] [phone] Patito Wilhelm MD [address] [place] [phone] 03/12/2025 11:00 AM EST Office Visit [address] [address] documented as of this encounter Goals Goal Patient Goal Type Associated Problems Recent Progress Patient-Stated? Author Blood Pressure < 140/90 Blood Pressure 150/73( 025 5:11 PM EDT) No Christie, Wilber, PharmD documented as of this encounter Visit Diagnoses Not on filedocumented in this encounter Additional Health Concerns Assessment Noted Time PHQ-9 Depression Total Score: 6 07/27/19 23 1:10 PM EDT documented as of this encounter Care Teams Senior Loan Officer Relationship Specialty Start Date End Date Patito Wilhelm MD [address] [place] [address] PCP - General Family Medicine 11/13/18 Wilber Christie, PharmD [address] [place] [address] Pharmacist Internal Medicine 01/28/23 documented as of this encounter
--- OUTSIDE RECORDS SUMMARY | 2024-12-26 12:42 | XMS_ITS | Clinical Summary ---
Author Organization [facility] Address [address] [facility] [address] [place] [address] Phone Care Team Providers Care Seat Covers Trimmer Name Role Phone Patito Wilhelm MD Primary Care Provider [phone] Allergies Active Allergy Reactions Criticality Noted Date [...] & Plan: - recommended to check with painter if she can receive steroid injection Chronic primary bladder pain syndrome 08/14/2012 05/03/2023 Overview (05/03/2023): Last Assessment & Plan: -Followed by urologist, [facility], last seen on 02/22/22 -Prescribed tamsulosin Chronic low back pain 08/14/2012 05/03/2023 Overview (05/03/2023): Last Assessment & Plan: -Seen by painter on 12/16/22, yet mainly for left [...] (05/03/2023): Last Assessment & Plan: -Followed by [facility] pulmonology, last seen on 11/30/21 -Questionable adherence to medications according to refill history -Reviewed her medications today and discussed about the importance of adherence -Continue Dulera and Spiriva as maintenance -Continue albuterol HFA prn as rescue -Consider referring to MTM -Urged to schedule appt with commercial roofer; pt verbalized understanding Type 2 diabetes mellitus [...] active Hep C. -Check the satus of mSnape -Last eye exam: 06/18/22, no retinopathy -Last [...] Last Assessment & Plan: - Following with [facility], last seen on 12/16/22, started on Euflexxa injection - XR on 12/16/22 showed : mild Osteoarthritis - Currently receiving intraarticular Euflexxa (hyaluronate derivative) Injection - Continue current Tx plan per painter Viral hepatitis C 09/20/2011 05/03/2023 Social History [...] Office Visit [facility] [address] [facility] [address] [place] [address] Jareth Rowan MD [address] [facility] [address] [place] [address] Health Maintenance Due Date Last [...] Years) Discontinued 10/08/2022, 05/10/2022, 02/13/[address] [place] [id number] [facility] ([id number]) [place] [address] ([id number]) Care Teams Seat Covers Trimmer Relationship Specialty Start Date End Date Patito Wilhelm MD [address] [place] [phone] PCP - General Family Medicine 02/07/24
--- OUTSIDE RECORDS SUMMARY | 2024-12-26 12:42 | XMS_ITS | Encounter Summary ---
Author Organization [employer] Address [address] [facility] 7[address] [place] [address] Care Team Providers Care Education Nurse Name Role Phone Patito Wilhelm MD Primary Care Provider [phone] Wilber Christie PharmD Unavailable [phone] Reason for Visit * Reason Comments Med Refill Encounter Details Date Type Department Care Team (Late st Contact Info) Description 03/27/2024 Refill [facility] [address] [place] [address] Patito Wilhelm MD [address] [place] [address] Type 2 diabetes mellitus with diabetic polyneuropathy, with long-term current use of insulin ([facility]) Social History Tobacco Use Types Packs/Day Years [...] Description 01/23/2025 2:30 PM EDT Medication Management [address] [address] Wilber Christie PharmD [address] [place] [phone] 02/04/2025 3:00 PM EDT Office Visit [address] [address] Patito Wilhelm MD [address] [place] [address] 03/12/2025 11:00 AM EST Office Visit [address] [address] documented as of this encounter Goals Goal Patient Goal Type Associated Problems Recent Progress Patient-Stated? Author Blood Pressure < 140/90 Blood Pressure 150/73(2024 5:11 PM EDT) No Wilber Christie, PharmKit Hemoglobin A1c < 7 Result Component 6.1(07/14/202 5 3:12 PM EDT) No Wilber Christie, PharmD documented as of this encounter Visit Diagnoses Diagnosis Type 2 diabetes mellitus with diabetic polyneuropathy, with long-term current use of insulin ([facility]) documented in this encounter Additional Health Concerns Assessment Noted Time PHQ-9 Depression Total Score: 11 024 1:39 PM EDT documented as of this encounter Care Teams Education Nurse Relationship Specialty Start Date End Date Patito Wilhelm MD [address] [place] [address] PCP - General Family Medicine 11/13/18 Wilber Christie, PharmD [address] [place] [phone] Pharmacist Internal Medicine 01/28/23 documented as of this encounter
--- OUTSIDE RECORDS SUMMARY | 2024-12-26 12:42 | XMS_ITS | Encounter Summary ---
Author Organization [employer] Address [address] [place] [address] 7 [place] [address] Care Team Providers Care Flexboard Operator Name Role Phone Patito Wilhelm MD Primary Care Provider [phone] Wilber Christie PharmD Unavailable [phone] Reason for Referral * Consultation (Routine) - Pending Review Specialty Diagnoses / Procedures Referred By Tahir daly Referred To Contact Pharmacy Diagnoses Primary hypertension Type 2 diabetes mellitus with both eyes affected by mild nonproliferative retinopathy without macular edema, with long-term current use of insulin (CMS/HCC) Patito Wilhelm MD [address] [place] [address] Phone: tel: fax: Referral ID Status Reason Start Date Expiration Date Visits Requested Visits Authorized [id number] Pending Review Consult and Treat 4 02/08/2025 6 6 Encounter Details Date Type Department Care Team (Late st Contact Info) Description 02/09/2024 Orders Only [facility] MEDICINE [address] [place] [address] Patito Wilhelm MD [address] [place] [address] [phone] Primary hypertension (Primary Dx); Type 2 diabetes [...] 01/23/2025 2:30 PM EDT Medication Management [facility] MEDICINE [address] [place] [address] Wilber Christie, PharmD [address] [place] [address] 02/04/2025 3:00 PM EDT Office Visit [facility] MEDICINE [address] [place] [address] [phone] Patito Wilhelm MD [address] [place] [address] 03/12/2025 11:00 AM EST Office Visit [facility] MEDICINE [address] [place] [address] Scheduled Referrals Name Type Priority Associated Diagnoses [...] documented as of this encounter Care Teams Flexboard Operator Relationship Specialty Start Date End Date Patito Wilhelm MD [address] [place] [address] PCP - General Family Medicine 11/13/18 Wilber Christie, PharmD [address] [place] [address] Pharmacist Internal Medicine 01/28/23 documented as of this encounter
--- OUTSIDE RECORDS SUMMARY | 2024-12-26 12:42 | XMS_ITS | Encounter Summary ---
Author Organization [employer] Address 75 [facility] 7t [place] [address] Care Team Providers Care Deaf Teacher Name Role Phone Patito Wilhelm MD Primary Care Provider [phone] Wilber Christie PharmD Unavailable Reason for Visit * Reason Onset Date Comments triage 06/22/2022 Encounter Details Date Type Department Care Team ([facility] st Contact Info) Description 06/22/2022 Telephone [facility] MEDICINE 230 [place], [place] [phone] aPtito Wilhelm MD 230 [place], [place] [phone] triage Social History Tobacco Use Types Packs/Day [...] Description 01/23/2025 2:30 PM EDT Medication Management [facility] MEDICINE [address] [place] [address] Wilber Christie, PharmD 230 [place] [address] 02/04/2025 3:00 PM EDT Office Visit [facility] MEDICINE [address] [place] [address] Patito Wilhelm MD [address] [place] [address] 03/12/2025 11:00 AM EST Office Visit [facility] MED[facility]INE [address] [place] [address] documented as of this encounter Visit Diagnoses Not on filedocumented in this encounter Care Teams Deaf Teacher Relationship Specialty Start Date End Date Patito Wilhelm MD [address] [place] [address] PCP - General Family Medicine 11/13/18 Wilber Christie, PharmD [address] [place] [address] 313[address] Pharmacist Internal Medicine 01/28/23 documented as of this encounter
--- OUTSIDE RECORDS SUMMARY | 2024-12-26 12:42 | XMS_ITS | Encounter Summary ---
Author Organization [email or web address] Address 75 [facility] 7t [place] [address] Care Team Providers Care Power Chisel Operator Name Role Phone Patito Wilhelm MD Primary Care Provider [phone] Wilber Christie PharmD Unavailable [phone] Reason for Visit * Reason Onset Date Comments Med Refill 03/08/2023 Encounter Details Date Type Department Care Team (Late st Contact Info) Description 03/08/2023 Telephone [facility] MEDICINE 230 [place] [address] Patito Wilhelm MD 230 [place], [place] [phone] Med Refill Social History Tobacco Use Types [...] (Percocet) 5-325 MG tablet Please sent to [facility]/pharmacy #[id number] [facility] [place] - [address] [place] [address] documented in this encounter Plan of Treatment Upcoming Encounters Date Type Department Care Team (Late st Contact Info) Description 01/23/2025 2:30 PM EDT Medication Management [facility] MEDICINE [address] [place] [address] Wilber Christie, PharmD [address] [place] [address] 02/04/2025 3:00 PM EDT Office Visit [facility] MEDICINE [address] [place] [address] Patito Wilhelm MD [address] [place] [address] 03/12/2025 11:00 AM EST Office Visit [address] [address] documented as of this encounter Goals Goal [...] documented as of this encounter Care Teams Power Chisel Operator Relationship Specialty Start Date End Date Patito Wilhelm MD 230 [place] [address] PCP - General Family Medicine 11/13/18 Wilber Christie, PharmD 230 [place] [address] Pharmacist Internal Medicine 01/28/23 documented as of this encounter
--- OUTSIDE RECORDS SUMMARY | 2024-12-26 12:43 | XMS_ITS | Encounter Summary ---
Author Organization [employer] Address 75 [facility] 7t [place] [address] Care Team Providers Care Founder & Ceo Name Role Phone Patito Wilhelm MD Primary Care Provider [phone] Wilber Christie PharmD Unavailable [phone] Reason for Visit * Reason Onset Date Comments Appointment Request 10/19/2023 Encounter Details Date Type Department Care Team ([facility] st Contact Info) Description 10/19/2023 Telephone [facility] MEDICINE 230 [place], [place] [phone] Patito Wilhelm MD 230 [place], [place] [phone] Appointment Request Social History Tobacco Use Types [...] week with PCP. Please contact pt at [phone] documented in this encounter Plan of Treatment Upcoming Encounters Date Type Department Care Team (Late st Contact Info) Description 01/23/2025 2:30 PM EDT Medication Management [address] [address] Wilber Christie, Kaia [address] [place] [address] 02/04/2025 3:00 PM EDT Office Visit [address] [address] Patito Wilhelm MD [address] [place] [address] 03/12/2025 11:00 AM EST Office Visit [address] [address] documented as of this encounter Goals Goal Patient Goal Type Associated Problems Recent Progress Patient-Stated? Author Blood Pressure < 140/90 Blood Pressure 150/73(2024 5:11 PM EDT) No Wilber Christie, PharmKit Hemoglobin A1c < 7 Result Component 6.1( 5 3:12 PM EDT) No Wilber Christie, PharmD documented as of this encounter Visit Diagnoses Not on filedocumented in this encounter Additional Health Concerns Assessment Noted Time PHQ-9 Depression Total Score: 6 07/27/19 23 1:10 PM EDT documented as of this encounter Care Teams Founder & Ceo Relationship Specialty Start Date End Date Patito Wilhelm MD 230 [place] [address] PCP - General Family Medicine 11/13/18 Wilber Christie, PharmD 230 [place] [address] Pharmacist Internal Medicine 01/28/23 documented as of this encounter
--- OUTSIDE RECORDS SUMMARY | 2024-12-26 12:43 | XMS_ITS | Encounter Summary ---
Author Organization [employer] Address [address] [place] [address] 7 [place] [address] Care Team Providers Care Regulation Supervisor Name Role Phone Patito Wilhelm MD Primary Care Provider [phone] Wilber Christie PharmD Unavailable [phone] Encounter Details Date Type Department Care Team (Latest Contact Info) Description 02/21/2019 Abstract [facility] CONVERSIONS Dental, Provider, DDS Social History [...] Description 01/23/2025 2:30 PM EDT Medication Management [facility] MEDICINE [address] [place] [address] Wilber Christie, PharmD 230 [place] [address] 02/04/2025 3:00 PM EDT Office Visit [facility] MEDICINE [address] [place] [address] Patito Wilhelm MD [address] [place] [address] 03/12/2025 11:00 AM EST Office Visit [facility] MEDICINE 230 [place] [address] documented as of this encounter Visit Diagnoses Not on filedocumented in this encounter Care Teams Regulation Supervisor Relationship Specialty Start Date End Date Patito Wilhelm MD [address] [place] [address] PCP - General Family Medicine 11/13/18 Wilber Christie, PennyD [address] [place] [address] Pharmacist Internal Medicine 01/28/23 documented as of this encounter
--- OUTSIDE RECORDS SUMMARY | 2024-12-26 12:43 | XMS_ITS | Encounter Summary ---
Author Organization [employer] Address 75 [facility] 7t [place] [address] Care Team Providers Care Rn Ambulatory Name Role Phone Patito Wilhelm MD Primary Care Provider [phone] Wilber Christie PharmD Unavailable [phone] Reason for Visit * Reason Onset Date Comments Appointment Request 10/24/2023 Encounter Details Date Type Department Care Team ([facility] st Contact Info) Description 10/24/2023 Telephone [facility] MEDICINE 230 [place], [place] [phone] Patito Wilhelm MD 230 [place], [place] [phone] Appointment Request Social History Tobacco Use Types [...] Description 01/23/2025 2:30 PM EDT Medication Management [address] [address] Wilber Christie PharmD [address] [place] [address] 02/04/2025 3:00 PM EDT Office Visit [address] [address] Patito Wilhelm MD [address] [place] [address] 03/12/2025 11:00 AM EST Office Visit [address] [address] documented as of this encounter Goals Goal [...] as of this encounter Care Teams Rn Ambulatory Relationship Specialty Start Date End Date Patito Wilhelm MD 230 [place] [address] PCP - General Family Medicine 11/13/18 Wilber Christie, PennyD 230 [place] [address] Pharmacist Internal Medicine 01/28/23 documented as of this encounter
--- OUTSIDE RECORDS SUMMARY | 2024-12-26 12:43 | XMS_ITS | Encounter Summary ---
Author Organization [employer] Address [address] [place] [address] 7 [place] [address] Care Team Providers Care Manager Intel Name Role Phone Patito Wilhelm MD Primary Care Provider [phone] Wilber Christie PharmD Unavailable Encounter Details Date Type Department Care Team (Latest Contact Info) Description 03/24/2020 Abstract [facility] CONVERSIONS Dental, Provider, DDS Social History [...] Upcoming Encounters Date Type Department Care Team ( st Contact Info) Description 01/23/2025 2:30 PM EDT Medication Management [facility] MEDICINE [address] [place] [address] Wilber Christie, PharmD 230 [place] [address] 02/04/2025 3:00 PM EDT Office Visit [facility] MEDICINE [address] [place] [address] Patito Wilhelm MD [address] [place] [address] 03/12/2025 11:00 AM EST Office Visit [facility] MEDICINE 230 [place] [address] documented as of this encounter Visit Diagnoses Not on filedocumented in this encounter Care Teams Manager Intel Relationship Specialty Start Date End Date Patito Wilhelm MD [address] [place] [address] PCP - General Family Medicine 11/13/18 Wilber Christie, PennyD [address] [place] [address] Pharmacist Internal Medicine 01/28/23 documented as of this encounter
--- OUTSIDE RECORDS SUMMARY | 2024-12-26 12:43 | XMS_ITS | Encounter Summary ---
Author Organization [employer] Address 75 [facility] 7t [place] [address] Care Team Providers Care Mechanic And Welder Name Role Phone Patito Wilhelm MD Primary Care Provider [phone] Wilber Christie PharmD Unavailable [phone] Reason for Visit * Reason Onset Date Comments Med Refill 12/02/2023 Encounter Details Date Type Department Care Team (Late st Contact Info) Description 12/02/2023 Refill [facility] MEDICINE 230 [place] [address] Patito Wilhelm MD 230 [place] [address] Chronic bilateral low back pain, unspecified whether [...] To be sent to: [facility]/pharmacy #[id number] [place], [place] [address] [place] Prescription last filled on 11/04/23 0 Refills Left ENEDINA with PCP: 08/30/23 * Telephone Encounter - Rodrigue Lawton - 12/02/2023 10:30 AM EDT TC from pt requesting medication refill. Medications needing refill : oxyCODONE-acetaminophen (Percocet) 5-325 MG tablet To be sent to: [facility]/pharmacy #[employer] [facility] [place] documented in this encounter Plan of Treatment Upcoming Encounters Date Type Department Care Team (Late st Contact Info) Description 01/23/2025 2:30 PM EDT Medication Management [address] [address] Wilber Christie PharmD [address] [place] [address] 02/04/2025 3:00 PM EDT Office Visit [address] [address] Patito Wilhelm MD [address] [place] [address] [phone] 03/12/2025 11:00 AM EST Office Visit [address] [phone] documented as of this encounter Goals Goal [...] documented as of this encounter Care Teams Mechanic And Welder Relationship Specialty Start Date End Date Patito Wilhelm MD [address] [place] [address] PCP - General Family Medicine 11/13/18 Wilber Christie PharmD [address] [place] [address] Pharmacist Internal Medicine 01/28/23 documented as of this encounter
--- OUTSIDE RECORDS SUMMARY | 2024-12-26 12:43 | XMS_ITS | Encounter Summary ---
Author Organization [employer] Address [address] [place] [address] 7t [place] [address] Care Team Providers Care Ham Trimmer Name Role Phone Patito Wilhelm MD Primary Care Provider [phone] Wilber Christie PharmD Unavailable Reason for Visit * Reason Comments Med Refill Encounter Details Date Type Department Care Team (Late Contact Info) Description 08/11/2022 Refill [facility]INE 230 [place] [address] Racquel Fu MD 230 [place] [address] Social History Tobacco Use Types Packs/Day Years [...] Upcoming Encounters Date Type Department Care Team ([facility] Contact Info) Description 01/23/2025 2:30 PM EDT Medication Management [facility] [place] [address] Wilber Christie, PharmD [facility] [place] [address] 02/04/2025 3:00 PM EDT Office Visit [address] [place] [address] Patito Wilhelm MD [facility] [place] [address] 03/12/2025 11:00 AM EST Office Visit [facility] [place] [address] documented as of this encounter Visit Diagnoses Not on filedocumented in this encounter Additional Health Concerns Assessment Noted Time PHQ-9 Depression Total Score: 6 07/27/19 1:10 PM EDT documented as of this encounter Care Teams Ham Trimmer Relationship Specialty Start Date End Date Patito Wilhelm MD [facility] [place] [address] PCP - General Family Medicine 11/13/18 Wilber Christie, PharmD [address] [place], [place] [address]myles [place] [address] Pharmacist Internal Medicine 01/28/23 documented as of this encounter
--- OUTSIDE RECORDS SUMMARY | 2024-12-26 12:43 | XMS_ITS | Encounter Summary ---
Author Organization [employer] Address 75 [facility] 7t [place] [address] Care Team Providers Care Freight Traffic Consultant Name Role Phone Patito Wilhelm MD Primary Care Provider [phone] Wilber Christie PharmD Unavailable [phone] Reason for Visit * Reason Onset Date Comments Med Refill 09/14/2024 Encounter Details Date Type Department Care Team (Late st Contact Info) Description 09/14/2024 Telephone [facility] MEDICINE 230 [place] [address] Patito Wilhelm MD 230 [place] [address] Med Refill Social History Tobacco Use Types [...] encounter Miscellaneous Notes * Telephone Encounter - Sara Patino - 09/14/2024 11:51 AM EDT TC from pt requesting medication refill. Medications needing refill : oxyCODONE-acetaminophen (Percocet) 5-325 MG tablet To be sent to: [facility]/pharmacy #[id number] [place], [place] - [address] [place] [address] documented in this encounter Plan of Treatment Upcoming Encounters Date Type Department Care Team (Late st Contact Info) Description 01/23/2025 2:30 PM EDT Medication Management [facility] MEDICINE [address] [place] [address] Wilber Christie, PharmD [address] [place] [address] 02/04/2025 3:00 PM EDT Office Visit [facility] MEDICINE [address] [place] [address] Patito Wilhelm MD 230 [place] [address] 03/12/2025 11:00 AM EST Office Visit [facility] MEDICINE [address] [place] [address] documented as of this encounter Goals Goal [...] documented as of this encounter Care Teams Freight Traffic Consultant Relationship Specialty Start Date End Date Patito Wilhelm MD [address] [place] [address] PCP - General Family Medicine 11/13/18 Wilber Christie PharmD [address] [place] [address] Pharmacist Internal Medicine 01/28/23 documented as of this encounter
--- OUTSIDE RECORDS SUMMARY | 2024-12-26 12:43 | XMS_ITS | Patient Health Record ---
Author Organization [facility] Address [address] [place] [address] Care Team Providers Care Rn L And D Name Role Phone Choco GANDHI, Patito Primary Care Provider Leonardo Harding [phone] Allergies Allergen (clinical drug ingredient) Drug/Non Drug Allergy documented on EMR Reaction Allergy Type Onset Date Status Flexeril Unknown Drug Allergy Active Avandia (uncoded) Unknown Allergy Ac tive aspirin ASA (uncoded) Unknown Allergy Active Levaquin (uncoded) Unknown Allergy A ctive azithromycin zithromax (uncoded) Unknown Allergy Active Glucotrol Unknown Drug Allergy Active Reason For Referral No Information Medications Medication [...] DIARRHEA ORALLY 30 DAY(S) for 90 Active Albuterol Sulfate (sensor) 108 (90 Base) [...] EVERY DAY Orally Once a day Active Dicyclomine HCl 10 MG 1 or 2 capsules Or ally Every 6 hours if needed for abdominal cramps/discomfort for 30 days Active oxyCODONE-Acetaminophen 5-325 MG 1 tablet as [...] Omeprazole 20 MG TAKE 1 CAPSULE BY [facility] EVERY DAY IN THE MORNING for 90 [...] Status Risk Notes Problem Colon cancer screening (252027396) Colon cancer screening (Z12.11) Active confirmed Problem Diverticular disease of colon (887856223) Diverticulosis of large intestine without perforation or abscess without bleeding (K57.30) Active confirmed Problem 068292498 Irritable bowel syndrome with diarrhea (K58.0) Active confirmed Problem 052096531 Right upper quadrant pain (R10.11) Active confirmed Problem Nausea (655697046) Nausea (R11.0) Active confirmed Problem 968198024 Gastroesophageal reflux disease without esophagitis (K21.9) Active confirmed Problem 044032779 Chronic hepatiti s C without hepatic coma (B18.2) Active confirmed Problem 628261864 Chronic hepatiti s C (B18.2) Active confirmed Problem 007239658 Abdominal pain, right upper quadrant (R10.11) Active confirmed Problem Belching (049505176) Belching (R14.2) Active confirmed Problem 47052532019827 History of hepatitis C (Z86.19) Active confirmed Problem 962015079 RUQ abdominal pa in (R10.11) Active confirmed Problem 20768325 Irritable bowel syndrome, unspecified type (K58.9) Active confirmed Problem 38360843 Gallbladder slud ge (K82.8) Active confirmed Problem Hepatic fibrosis (disorder) (34753645) Liver fibrosis (K74.00) Active confirmed Encounters Encounter Location Date Provider Diagnosis [facility] [address] [place] [address] 07/19/2024 Leonardo Stratton Plan Of Treatment Pending Test Test Name Order Date LIVER PROFILE 02/08/2015 LIVER PROFILE 03/05/2020 LIVER PROFILE 07/21/2022 LIVER PROFILE 12/19/2014 LIVER PROFILE 03/13/2019 LIVER PROFILE 06/12/2013 LIVER PROFILE 07/20/2023 LIVER PROFILE 06/01/2015 LIVER PROFILE 05/29/2015 LIVER PROFILE 05/27/2021 LIVER PROFILE 03/17/2018 CBC w DIFF 02/08/2015 CBC w DIFF 07/21/2022 CBC w DIFF 12/19/2014 CBC w DIFF 07/20/2023 CBC w DIFF 05/27/2021 PROTHROMBIN TIME (PT, INR) 05/27/2021 ALPHA-FETOPROTEIN,TUMOR MARKER 8 ALPHA-FETOPROTEIN,TUMOR MARKER 4 ALPHA-FETOPROTEIN,TUMOR MARKER 6 ALPHA-FETOPROTEIN,TUMOR MARKER 0 ALPHA-FETOPROTEIN,TUMOR MARKER 7 ALPHA-FETOPROTEIN,TUMOR MARKER 9 ALPHA-FETOPROTEIN,TUMOR MARKER 3 HEPATITIS C VIRAL LOAD 03/17/2018 HEPATITIS C [...] Insured Coverage Start Date Coverage End Date [facility] [address] Attn Claims JOSE Workman [id number] JAMEL NASSAR Self - patient is the [...] with hiatal hernia Irritable bowel syndrome Denies [place], stroke, and renal disease Fatty liver EGD [...]
== END 2024-12-26 10:48 | disposition home or self-care (01) ==
LOC: HO.HGS 10:27
PROVIDERS: PCP Family Medicine; Visit Provider Surgery
DX: R10.9 Unspecified abdominal pain (principal)
CPT/HCPCS: 99213

== ENCOUNTER → 2024-12-26 10:27 | Outpatient (BNVA) | payer OTHER, SELFPAY | PROVIDERS: PCP Family Medicine; Visit Provider Surgery | DX: M75.42 Impingement syndrome of left shoulder (principal); R10.31 Right lower quadrant pain; E65 Localized adiposity | CPT/HCPCS: 20610; 99212; J1010; J2003 ==

== ENCOUNTER 2024-12-26 14:44 | Outpatient (AMB) | payer OTHER, SELFPAY ==
--- NOTE | 2024-12-26 14:48 | MHC.OFFVIS ---
Vital Signs 12/26/24 14:50 Height 5 ft Weight 154 lb BMI 30.1 Intake Visit Reasons: OV- LT Shoulder 06/29/24 Intake Note: Ameena is a 59 year old female who presents with complaints of continued mild to moderate discomfort in her left shoulder after undergoing left shoulder arthroscopic surgery on 06/29/2024. She continues with her home stretching program. She has taken Tylenol and anti-inflammatory medicines which gave her mild relief. She denies any weakness. Allergies rosiglitazone (Avandia) Allergy (Severe, Verified 12/26/24 14:49) rash/hepatitis C cyclobenzaprine (From FLEXERIL) Allergy (Intermediate, Verified 12/26/24 14:49) HIVES latex (LATEX) Allergy (Intermediate, Verified 12/26/24 14:49) RASH azithromycin (From Zithromax) Allergy (Mild, Verified 12/26/24 14:49) SWELLING glipizide (From Glucotrol) Allergy (Mild, Verified 12/26/24 14:49) SWELLING levofloxacin (From Levaquin) Allergy (Mild, Verified 12/26/24 14:49) leg swelling aspirin (Aspirin) Allergy (Unknown, Verified 12/26/24 14:49) reaction unknown-was years ago Flexeril Allergy (Severe, Uncoded 12/26/24 10:36) Rash Medication List - Last Reconciled 12/27/24 by Pravin Guardado MD acetaminophen 500 mg PO Q6H PRN albuterol sulfate 90 mcg/actuation 2 puffs inhalation Q4-6H PRN azelastine 1 spray intranasal DAILY PRN budesonide-formoterol 160-4.5 mcg/actuation (Symbicort) 2 puffs inhalation BID celecoxib (Celebrex) 200 mg PO Q12H PRN cholecalciferol (vitamin D3) 50 mcg PO DAILY dicyclomine 10 - 20 mg PO Q6H PRN insulin asp prt-insulin aspart 100 unit/mL (70-30) (Novolog Mix 70-30FlexPen U-100) 25 units subcut BID meclizine 25 mg PO TID PRN methylprednisolone (Medrol (Braeden)) PO PER PKG DIR metoprolol succinate ER 75 mg PO BEDTIME montelukast 10 mg PO QPM naloxone 4 mg/actuation 1 spray intranasal DAILY nitroglycerin 0.4 mg sublingual Q5M PRN omeprazole 20 mg PO DAILY pregabalin 75 mg PO BID semaglutide (Ozempic) 2 mg subcut QWEEK valsartan-hydrochlorothiazide 320-25 mg 1 tab PO DAILY vitamin B complex (Vitamins B Complex tablet) 1 tab PO DAILY PFS Medical History (Updated 12/26/24 @ 10:45 by Marcell Saez MD) Right sided abdominal pain NIKI (obstructive sleep apnea) Bronchitis Lumbar radiculopathy Obesity Macromastia Meralgia paraesthetica Insomnia Palpitations Arthritis Back pain Diabetes History of abdominal hernia GERD (gastroesophageal reflux disease) Irritable bowel syndrome Interstitial cystitis Jaundice Hepatitis C Depression Neuropathy Numbness History of headache Vertigo Asthma Elevated cholesterol HTN (hypertension) Subcutaneous mass of left foot Calcaneal spur, unspecified foot Hernia Surgical History Hx of arthroscopy of shoulder Hx of hysterectomy Hx of elbow surgery Hx of removal of cyst Hx of foot surgery Hx of section History of bladder surgery H/O colonoscopy History of cholecystectomy History of carpal tunnel surgery of right wrist History of carpal tunnel surgery of left wrist H/O tubal ligation History of repair of rotator cuff History of liver biopsy Family History Father Gastric cancer Mother Coronary disease Social History Are you a primary primary care nurse practitioner to a significant other at home: No Do you presently have visiting nurse or other home services: No Alcohol intake: never Patient Tobacco Use Status: Never used Tobacco Current occupational status: disabled Current occupation: rt handed Physical Exam Vital Signs: BMI result Body Mass Index 30.1 Const Other: Well-nourished well-developed very friendly female awake alert and oriented x3 in no acute distress Extrem Other: Left shoulder examination shows slightly decreased range of motion when compared to her right shoulder, 5/5 strength with supraspinatus testing, moderate discomfort with resisted forward flexion, no instability Office Procedures AMB Joint Injection/Aspiration Joint Injection/Aspiration Primary Site: left shoulder Prep: site was prepped using aseptic technique Injected: 40 mg of, DepoMedrol and 1% plain lidocaine Procedure: The patient tolerated the procedure well Coding 15920 - Large joint Procedure code (CPT) selection complete Assessment & Plan Assessment & Plan (1) Impingement syndrome of left shoulder: Code(s): M75.42 - Impingement syndrome of left shoulder Category: Medical Plan Ms. Tejada presents with left shoulder discomfort due to impingement syndrome and rotator cuff tendinosis. The risks and benefits of a left shoulder cortisone injection were discussed at length with the patient. The patient wished to proceed. She tolerated the injection well. She will continue with her home stretching program. She will contact me prior to her follow-up appointment in 3 months should any questions or concerns arise. Feel free to call me at any time should questions regarding her orthopedic management arise. I spent 22 minutes in reviewing the patient's records and imaging studies, seeing the patient and documenting in the medical record. Orders: Orders AMB Joint Injection/Aspiration 12/26/24 M75.42 - Impingement syndrome of left shoulder Coding Level of Care Code Est Pt Level 3 (02974) Complex EM visit Add On G2211 Diagnoses Impingement syndrome of left shoulder M75.42 CPT Codes Coding - 88073 Large joint: 39111 - Large joint ([id number])
[2024-12-26 14:50] VITALS: BMI 30.1
== END 2024-12-26 14:59 | disposition home or self-care (01) ==
LOC: HO.HOS 14:44
PROVIDERS: PCP Family Medicine; Visit Provider Orthopaedic Surgery
DX: M75.42 Impingement syndrome of left shoulder (principal)
CPT/HCPCS: 20610; 99213

== ENCOUNTER 2025-02-16 09:57 | Outpatient (REF) | payer OTHER, SELFPAY ==
--- OUTSIDE RECORDS SUMMARY | 2023-10-19 04:30 | XMS_ITS ---
Author Organization [facility] Address [address] [place] [address] Care Team Providers Care Upsetter Helper Name Role Phone Choco GANDHI, Patito Primary Care Provider Leonardo Harding Unavailable [phone] REASON FOR VISIT screening Problems Problem Type SNOMED Code ICD Code Onset Dates Problem Status W/U Status Risk Notes Problem Diverticular disease of colon (529916810) Diverticulosis of large intestine without perforation or abscess without bleeding (K57.30) Active confirmed Encounters Encounter Location Date Provider Diagnosis [facility] Outpatient [address] [place], [place] [phone] 10/19/2023 Leonardo Stratton Encounter for scre ening [...] * KANDY NASSARMERLENEB: 5 (59 yo F)Acc No.[id number]:10/19/2023 COLON WITH MAC Patient: JAMEL RICHARD Provider: Layton Stratton MD :1965 A ge:58 Y S ex:Female Date:10/19/2023 Address:[address] [place] [address] [address] [id number] Pcp:Patito Wilhelm MD Subjective: * Chief Complaints: [...] 0 10/19/2023 Generated for Nory funk/Eulalia/Lanitting on: 04/18/2024 09:59 AM EDT
--- OUTSIDE RECORDS SUMMARY | 2024-07-19 05:20 | XMS_ITS ---
Author Organization [facility] Address [address] [place] [address] Care Team Providers Care Autocad Technician Name Role Phone Choco GANDHI, Patito Primary Care Provider Leonardo Harding [phone] REASON FOR VISIT Patient presents today for hepatitis c Encounters Encounter Location Date Provider Diagnosis [facility] [address] [place] [address] 07/19/2024 Leonardo Stratton Plan Of Treatment No Information Progress Notes * ANDERSON NASSARB: 5 (59 yo F)Acc No.[id number]:07/19/2024 Progress Notes Patient: JAMEL RICHARD Provider: Layton Stratton MD :1965 A ge:59 Y S ex:Female Date:07/19/2024 Address:[address] [place] [address] [address] [place] [facility] Pcp:Patito Wilhelm MD Subjective: * Chief Complaints: [...] 0 07/19/2024 Generated for Nory funk/Eulalia/eTransmitting on: 04/18/2024 10:00 AM EDT
--- NOTE | ~2025-02-16 | CT_ITS ---
EXAMINATION: CT ABDOMEN AND PELVIS WITHOUT CONTRAST CLINICAL INFORMATION: Rule out hernia COMPARISON: CT 08/30/2024 TECHNIQUE: Multidetector volumetric imaging was performed from the superior aspect of the liver through the pubic symphysis. Sagittal and coronal reformatted images were obtained on the technologist's workstation. This CT examination was performed using dose optimization techniques as appropriate, variously including the following: *Automated exposure control *Adjustment of mA and/or kV according to patient size (this includes techniques or standardized protocols for targeted exams where dose is matched to indication/reason for exam; i.e. extremities or head) *Use of iterative reconstruction technique FINDINGS: LUNG BASES: Mild left lower lobe scarring. No pericardial or pleural effusion. LIVER, GALLBLADDER, AND BILIARY TREE: No focal liver lesion. No intrahepatic biliary duct dilatation. Status postcholecystectomy. Mild extrahepatic biliary duct prominence, could be compensatory, correlate with bilirubin. PANCREAS: No inflammatory changes SPLEEN: Unremarkable. ADRENAL GLANDS: Unremarkable. KIDNEYS AND URETERS: No calculi. No hydronephrosis. No suspicious lesions. BLADDER: Nondistended limiting evaluation GASTROINTESTINAL TRACT: Stomach is nondistended. No abnormal dilated small or large bowel loops. Small-moderate volume colonic stool. Colonic diverticulosis without evidence of diverticulitis. Appendix appears unremarkable. Peritoneum: No free fluid. No mesenteric edema identified. No free air. ABDOMINAL WALL: Redemonstrated lower abdomen midline fat-containing ventral hernia, with a neck of 2 x 2.2 cm. LYMPH NODES: No pathologically enlarged lymph nodes seen. VASCULAR: Normal caliber aorta. PELVIC VISCERA: Status post hysterectomy. Redemonstrated question of slightly low-lying urinary bladder and rectum. OSSEOUS STRUCTURES: No acute findings CT/CT abdomen pelvis wo IV con IMPRESSION: * Redemonstrated lower abdomen midline fat-containing ventral hernia, with the neck of 2 x 2.2 cm. * Status postcholecystectomy. * No acute abdominal findings identified. * Hysterectomy. Redemonstrated is slightly low lying urinary bladder and rectum, clinically correlate for mild pelvic floor dysfunction. Fleischner guidelines were followed. Electronically signed by: Reyes Rueda MD 02/18/2025 10:09 AM [facility]
--- OUTSIDE RECORDS SUMMARY | 2025-02-16 09:59 | XMS_ITS | Encounter Summary ---
Author Organization [employer] Address [address] [facility] 7t [place] [address] Care Team Providers Care Paper Products Inspector Name Role Phone Patito Wilhelm MD Primary Care Provider [phone] Wilber Christie PharmD Unavailable [phone] Reason for Visit * Reason Onset Date Comments Medication Question 06/09/2023 Encounter Details Date Type Department Care Team ([facility] st Contact Info) Description 06/09/2023 Telephone [facility] MED[facility]INE [address] [place], [place] [phone] Patito Wilhelm MD [address] [place], [place] [phone] Medication Question Social History Tobacco Use Types [...] If any questions please contact pt at [phone]. documented in this encounter Plan of Treatment Upcoming Encounters Date Type Department Care Team (Late st Contact Info) Description 03/12/2025 11:00 AM EST Office Visit [facility] [address] [place] [address] 05/10/2025 1:00 PM EST Medication Management [facility] [address] [place] [address] Wilber Christie PharmD [address] [place] [address] documented as of this encounter Goals Goal Patient Goal Type Associated Problems Recent Progress Patient-Stated? Author Blood Pressure < 140/90 Blood Pressure 120/60( 025 3:07 PM EDT) No Wilber Christie PharmD documented as of this encounter Visit Diagnoses Not on filedocumented in this encounter Additional Health Concerns Assessment Noted Time PHQ-9 Depression Total Score: 6 07/27/19 23 1:10 PM EDT documented as of this encounter Care Teams Paper Products Inspector Relationship Specialty Start Date End Date Patito Wilhelm MD [address] [place] [address] PCP - General Family Medicine 11/13/18 Wilber Christie, PennyD [address] [place] [address] Pharmacist Internal Medicine 01/28/23 documented as of this encounter
--- OUTSIDE RECORDS SUMMARY | 2025-02-16 09:59 | XMS_ITS | Encounter Summary ---
Author Organization [employer] Address [address] [facility] 7t [place] [address] Care Team Providers Care Fitter / Welder Name Role Phone Patito Wilhelm MD Primary Care Provider [phone] Wilber Christie PharmD Unavailable [phone] Reason for Visit * Reason Onset Date Comments Medication Question 12/03/2024 Encounter Details Date Type Department Care Team ([facility] st Contact Info) Description 12/03/2024 Telephone [facility] MEDICINE 230 [place], [place] [phone] Patito Wilhelm MD [address] [place], [place] [phone] Medication Question Social History Tobacco Use Types [...] Description 03/12/2025 11:00 AM EST Office Visit [facility] MEDICINE [address] [place] [address] 05/10/2025 1:00 PM EST Medication Management [facility] MED[facility]INE [address] [place] [address] Wilber Christie, PharmD [address] [place] [address] documented as of this encounter Goals Goal Patient Goal Type Associated Problems Recent Progress Patient-Stated? Author Blood Pressure < 140/90 Blood Pressure 120/60(2024 3:07 PM EDT) No Wilber Christie PharmD Hemoglobin A1c < 7 Result Component 6.1( 3:10 PM EDT) No Wilber Christie PharmD documented as of this encounter Visit Diagnoses Not on filedocumented in this encounter Additional Health Concerns Assessment Noted Time PHQ-9 Depression Total Score: 11 024 1:39 PM EDT documented as of this encounter Care Teams Fitter / Welder Relationship Specialty Start Date End Date Patito Wilhelm MD [address] [place] [address] PCP - General Family Medicine 11/13/18 Wilber Christie PharmD [address] [place] [address] Pharmacist Internal Medicine 01/28/23 documented as of this encounter
--- OUTSIDE RECORDS SUMMARY | 2025-02-16 09:59 | XMS_ITS | Encounter Summary ---
Author Organization [employer] Address [address] [facility] 7t [place] [address] Care Team Providers Care Planting Supervisor Name Role Phone Patito Wilhelm MD Primary Care Provider [phone] Wilber Christie PharmD Unavailable [phone] Reason for Visit * Reason Onset Date Comments Med Refill 03/08/2023 Encounter Details Date Type Department Care Team (Late st Contact Info) Description 03/08/2023 Telephone [facility] MEDICINE 230 [place] [address] Patito Wilhelm MD 230 [place], [place] [phone] Med Refill Social History Tobacco Use Types [...] (Percocet) 5-325 MG tablet Please sent to [facility]/pharmacy #[id number] [place], [place] - [address] [place] [address] documented in this encounter Plan of Treatment Upcoming Encounters Date Type Department Care Team (Late st Contact Info) Description 03/12/2025 11:00 AM EST Office Visit [facility] MEDICINE [address] [place] [address] 05/10/2025 1:00 PM EST Medication Management [facility] MEDICINE [address] [place] [address] Wilber Christie PharmD [address] [place] [address] documented as of this encounter Goals Goal [...] documented as of this encounter Care Teams Planting Supervisor Relationship Specialty Start Date End Date Patito Wilhelm MD [address] [place] [address] PCP - General Family Medicine 11/13/18 Wilber Christie, PennyD [address] [place] [address] Pharmacist Internal Medicine 01/28/23 documented as of this encounter
--- OUTSIDE RECORDS SUMMARY | 2025-02-16 09:59 | XMS_ITS | Encounter Summary ---
Author Organization [employer] Address [address] [facility] 7t [place] [address] Care Team Providers Care Wood Floor Refinisher Name Role Phone Patito Wilhelm MD Primary Care Provider [phone] Wilber Christie PharmD Unavailable [phone] Reason for Visit * Reason Onset Date Comments Nurse Triage 05/25/2024 Encounter Details Date Type Department Care Team ([facility] st Contact Info) Description 05/25/2024 Telephone [facility] MEDICINE 230 [place], [place] [phone] Patito Wilhelm MD [address] [place], [place] [phone] Nurse Triage Social History Tobacco Use Types [...] Call Ahead Before Visiting Your Doctor (or SCOURING MACHINE TENDER/PA) * Telephone Encounter - Jess Bunn - 05/25/2024 12:53 PM EST Symptoms: Low Blood Pressure - Caller Reports, Cough, Headache, Nausea But No Vomiting Outcome: Talk to a nurse or provider within 15 minutes Reason: Trouble walking The caller accepted this outcome. [phone] documented in this encounter Plan of Treatment Upcoming Encounters Date Type Department Care Team (Late st Contact Info) Description 03/12/2025 11:00 AM EST Office Visit [address] [address] 05/10/2025 1:00 PM EST Medication Management [address] [address] Wilber Christie PharmD [address] [place] [address] documented as of this encounter Goals Goal Patient Goal Type Associated Problems Recent Progress Patient-Stated? Author Blood Pressure < 140/90 Blood Pressure 120/60(2024 3:07 PM EDT) No Wilber Christie, Kaia Hemoglobin A1c < 7 Result Component 6.1( 5 3:10 PM EDT) No Wilber Christie, PharmD documented as of this encounter Visit Diagnoses Not on filedocumented in this encounter Additional Health Concerns Assessment Noted Time PHQ-9 Depression Total Score: 11 024 1:39 PM EDT documented as of this encounter Care Teams Wood Floor Refinisher Relationship Specialty Start Date End Date Patito Wilhelm MD [address] [place] [address] PCP - General Family Medicine 11/13/18 Wilber Christie, PharmD [address] [place] [address] Pharmacist Internal Medicine 01/28/23 documented as of this encounter
--- OUTSIDE RECORDS SUMMARY | 2025-02-16 09:59 | XMS_ITS | Encounter Summary ---
Author Organization [employer] Address [address] [facility] 7t [place] [address] Care Team Providers Care Faculty Head Name Role Phone Patito Wilhelm MD Primary Care Provider [phone] Wilber Christie PharmD Unavailable [phone] Reason for Visit * Reason Onset Date Comments Med Refill 02/05/2025 Encounter Details Date Type Department Care Team (Late st Contact Info) Description 02/05/2025 Telephone [facility] MEDICINE 230 [place] [address] Patito Wilhelm MD [address] [place] [address] Med Refill Social History Tobacco Use Types Packs/Day Years Used Date Smoking Tobacco: Never Passive Smoke Exposure: Never Smokeless Tobacco: Never Alcohol Use Standard Drinks/Week Comments Never 0 (1 standard drink = 0.6 oz pur e alcohol) Depression Answer Date Recorded Patient Health Questionnaire-9 Score 10 02/04/2025 Patient Health Questionnaire-9 Score 10 02/04/2025 Last PHQ-9: Questionnaire Data Not on file 1 Housing Stability Answer Date Recorded What is [...] Date Recorded Patient Health Questionnaire-2 Score 2 02/04/2025 Internet Access Answer Date Recorded Internet Access [...] encounter Miscellaneous Notes * Telephone Encounter - Frank Mathias - 02/05/2025 3:11 PM EDT TC from pt requesting medication refill. Medications needing refill : oxyCODONE-acetaminophen (Percocet) 5-325 MG tablet To be sent to: [facility]/pharmacy #[id number] [place] [address] - [address] [place] [address] documented in this encounter Plan of Treatment Upcoming Encounters Date Type Department Care Team ([facility] st Contact Info) Description 03/12/2025 11:00 AM EST Office Visit [facility] MEDICINE [address] [place] [address] 05/10/2025 1:00 PM EST Medication Management [facility]INE [address] [place] [address] Wilber Christie, PharmD [address] [place] [address] documented as of this encounter Goals Goal Patient Goal Type Associated Problems Recent Progress Patient-Stated? Author Blood Pressure < 140/90 Blood Pressure 120/60(2024 3:07 PM EDT) No Wilber Christie PharmD Hemoglobin A1c < 7 Result Component 6.1( 5 3:10 PM EDT) No Wilber Christie PharmD documented as of this encounter Visit Diagnoses Not on filedocumented in this encounter Additional Health Concerns Assessment Noted Time PHQ-9 Depression Total Score: 025 3:13 PM EDT documented as of this encounter Care Teams Faculty Head Relationship Specialty Start Date End Date Patito Wilhelm MD [address] [place] [address] PCP - General Family Medicine 11/13/18 Wilber Christie PharmD [address] [place] [address] Pharmacist Internal Medicine 01/28/23 documented as of this encounter
--- OUTSIDE RECORDS SUMMARY | 2025-02-16 09:59 | XMS_ITS | Encounter Summary ---
Author Organization [employer] Address [address] [facility] 7t [place] [address] Care Team Providers Care Government Relations Analyst Name Role Phone Patito Wilhelm MD Primary Care Provider [phone] Wilber Christie PharmD Unavailable [phone] Reason for Visit * Reason Onset Date Comments Med Refill 08/16/2024 Encounter Details Date Type Department Care Team (Late st Contact Info) Description 08/16/2024 Telephone [facility] MEDICINE [address] [place] [address] Patito Wilhelm MD [address] [place] [address] Med Refill Social History Tobacco Use Types [...] MG tablet To be sent to: [address] [address] documented in this encounter Plan of Treatment Upcoming Encounters Date Type Department Care Team ([facility] st Contact Info) Description 03/12/2025 11:00 AM EST Office Visit [facility] MEDICINE [address] [place] [address] 05/10/2025 1:00 PM EST Medication Management [facility]INE [address] [place] [address] Wilber Christie, PharmD [address] [place] [address] documented as of this encounter Goals Goal [...] documented as of this encounter Care Teams Government Relations Analyst Relationship Specialty Start Date End Date Patito Wilhelm MD [address] [place] [address] PCP - General Family Medicine 11/13/18 Wilber Christie PharmD [address] [place] [address] Pharmacist Internal Medicine 01/28/23 documented as of this encounter
--- OUTSIDE RECORDS SUMMARY | 2025-02-16 09:59 | XMS_ITS | Encounter Summary ---
Author Organization [employer] Address 75 [facility] 7 [place] [address] Care Team Providers Care Corporate Safety Director Name Role Phone Patito Wilhelm MD Primary Care Provider [phone] Wilber Christie PharmD Unavailable [phone] Reason for Visit * Reason Onset Date Comments Med Refill 07/11/2024 Encounter Details Date Type Department Care Team (Late st Contact Info) Description 07/11/2024 Telephone [facility] MEDICINE 230 [place] [address] Patito Wilhelm MD [address] [place] [address] Med Refill Social History Tobacco Use Types [...] 5-325 MG tablet To be sent to: [address] [address] documented in this encounter Plan of Treatment Upcoming Encounters Date Type Department Care Team (Late st Contact Info) Description 03/12/2025 11:00 AM EST Office Visit [facility] MEDICINE [address] [place] [address] 05/10/2025 1:00 PM EST Medication Management [facility] MED[facility] [address] [place] [address] Wilber Christie, PharmD [address] [place] [address] documented as of this encounter Goals Goal [...] documented as of this encounter Care Teams Corporate Safety Director Relationship Specialty Start Date End Date Patito Wilhelm MD [address] [place] [address] PCP - General Family Medicine 11/13/18 Wilber Christie PharmD [address] [place] [address] Pharmacist Internal Medicine 01/28/23 documented as of this encounter
--- OUTSIDE RECORDS SUMMARY | 2025-02-16 09:59 | XMS_ITS | Encounter Summary ---
Author Organization [employer] Address [address] [facility] 7t [place] [address] Care Team Providers Care Fresh Work Inspector Name Role Phone Patito Wilhelm MD Primary Care Provider [phone] Wilber Christie PharmD Unavailable [phone] Reason for Visit * Reason Onset Date Comments PAP Smear 08/1008/11/2023 Encounter Details Date Type Department Care Team ([facility] st Contact Info) Description 08/11/2023 Telephone [facility]INE 230 [place] [address] Patito Wilhelm MD [address] [place], [place] [phone] PAP Smear 08/10 Social History Tobacco Use [...] stated she wasn't able ot make it, financial underwriter attempted to r/s but no availability. Professor Of Food Biochemistry advised pt call back August 16 r/s for October. documented in this encounter Plan of Treatment Upcoming Encounters Date Type Department Care Team (Late st Contact Info) Description 03/12/2025 11:00 AM EST Office Visit [facility] [address] [place] [address] 05/10/2025 1:00 PM EST Medication Management [facility] [address] [place] [address] Wilber Christie PharmD [address] [place] [address] documented as of this encounter Goals Goal [...] documented as of this encounter Care Teams Fresh Work Inspector Relationship Specialty Start Date End Date Patito Wilhelm MD [address] [place] [address] PCP - General Family Medicine 11/13/18 Wilber Christie, PennyD [address] [place] [address] Pharmacist Internal Medicine 01/28/23 documented as of this encounter
--- OUTSIDE RECORDS SUMMARY | 2025-02-16 09:59 | XMS_ITS | Encounter Summary ---
Author Organization [employer] Address 75 [facility] 7 [place] [address] Care Team Providers Care Swimming Coach Or Instructor Name Role Phone Patito Wilhelm MD Primary Care Provider [phone] Wilber Christie PharmD Unavailable [phone] Reason for Visit * Reason Onset Date Comments Appointment Request 12/18/2024 Encounter Details Date Type Department Care Team ([facility] st Contact Info) Description 12/18/2024 Telephone [facility] MEDICINE 230 [place], [place] [phone] Patito Wilhelm MD [address] [place], [place] [phone] Appointment Request Social History Tobacco Use Types [...] pt not having transportation. Contact pt at [phone] Need coverage analyst documented in this encounter Plan of Treatment Upcoming Encounters Date Type Department Care Team (Late st Contact Info) Description 03/12/2025 11:00 AM EST Office Visit [facility] MEDICINE [address] [place] [address] 05/10/2025 1:00 PM EST Medication Management [facility] [address] [place] [address] Wilber Christie PharmD [address] [place] [address] documented as of this encounter Goals Goal [...] documented as of this encounter Care Teams Swimming Coach Or Instructor Relationship Specialty Start Date End Date Paitto Wilhelm MD [address] [place] [address] PCP - General Family Medicine 11/13/18 Wilber Christie PharmD [address] [place] [address] Pharmacist Internal Medicine 01/28/23 documented as of this encounter
--- OUTSIDE RECORDS SUMMARY | 2025-02-16 09:59 | XMS_ITS | Encounter Summary ---
Author Organization [employer] Address [address] [place] [address] [facility] [place] [address] Care Team Providers Care Plate Slitter And Inspector Name Role Phone Patito Wilhelm MD Primary Care Provider [phone] Wilber Christie PharmD Unavailable [phone] Reason for Referral * Consultation (Routine) - Authorized Specialty Diagnoses / Procedures Referred By Contac t Referred To Contact Pharmacy Diagnoses Type 2 diabetes mellitus with both eyes affected by mild nonproliferative retinopathy without macular edema, with long-term current use of insulin (HCC) Primary hypertension Moderate persistent asthma without complication Patito Wilhelm MD [address] [place] [address] Phone: tel: fax: Referral ID Status Reason Start Date Expiration Date Visits Requested Visits Authorized [id number] Authorized Consult and Treat 01/24/2025 01/24/2026 6 6 Encounter Details Date Type Department Care Team (Late st Contact Info) Description 01/24/2025 Orders Only [facility] [address] [place] [address] [phone] Patito Wilhelm MD [address] [place] [address] [phone] Type 2 diabetes mellitus with both eyes affected by mild nonproliferative retinopathy without macular edema, with long-term current use of insulin (HCC) (Primary Dx); Primary hypertension; Moderate persistent asthma without complication Social History [...] Upcoming Encounters Date Type Department Care Team ([facility] st Contact Info) Description 03/12/2025 11:00 AM EST Office Visit [facility] [address] [place] [address] 05/10/2025 1:00 PM EST Medication Management [facility] [address] [place] [address] [phone] Wilber Christie, PharmD [address] [place] [address] Scheduled Referrals Name Type Priority Associated Diagnoses Orde r Schedule Referral to Pharmacy CDTM Outpatient Referral Routine Type 2 diabetes mellitus with both eyes affected by mild nonproliferative retinopathy without macular edema, with long-term current use of insulin (HCC) Primary hypertension Moderate persistent asthma without complication Ordered: 01/24/2025 documented as of this encounter Goals Goal [...] edema, with long-term current use of insulin (HCC)- Primary Primary hypertension Unspecified essential hypertension Moderate persistent asthma without complication documented in this encounter Additional Health Concerns Assessment Noted Time PHQ-9 Depression Total Score: 11 024 1:39 PM EDT documented as of this encounter Care Teams Plate Slitter And Inspector Relationship Specialty Start Date End Date Patito Wilhelm MD [address] [place] [address] 87245 PCP - General Family Medicine 11/13/18 Wilber Christie PharmD [address] [place] [address] 68[address] Pharmacist Internal Medicine 01/28/23 documented as of this encounter
--- OUTSIDE RECORDS SUMMARY | 2025-02-16 09:59 | XMS_ITS | Encounter Summary ---
Author Organization [employer] Address 75 [facility] 7t [place] [address] Care Team Providers Care Mems Engineer Name Role Phone Patito Wilhelm MD Primary Care Provider [phone] Wilber Christie PharmD Unavailable [phone] Reason for Visit * Reason Comments Med Refill Encounter Details Date Type Department Care Team (Late st Contact Info) Description 01/26/[address] [facility] [address] [place] [address] Patito Wilhelm MD [address] [place] [address] Social History Tobacco Use Types Packs/Day Years [...] Description 03/12/2025 11:00 AM EST Office Visit [facility] [address] [place] [address] 05/10/2025 1:00 PM EST Medication Management [facility] [address] [place] [address] Wilber Christie PharmD [address] [place] [address] documented as of this encounter Goals Goal Patient Goal Type Associated Problems Recent Progress Patient-Stated? Author Blood Pressure < 140/90 Blood Pressure 120/60(2024 3:07 PM EDT) No Wilber Christie, PharmKit Hemoglobin A1c < 7 Result Component 6.1( 3:10 PM EDT) No Wilber Christie PharmD documented as of this encounter Visit Diagnoses Not on filedocumented in this encounter Additional Health Concerns Assessment Noted Time PHQ-9 Depression Total Score: 11 024 1:39 PM EDT documented as of this encounter Care Teams Mems Engineer Relationship Specialty Start Date End Date Patito Wilhelm MD [address] [place] [address] PCP - General Family Medicine 11/13/18 Wilber Christie, PennyD [address] [place] [address] 39[address] Pharmacist Internal Medicine 01/28/23 documented as of this encounter
--- OUTSIDE RECORDS SUMMARY | 2025-02-16 09:59 | XMS_ITS | Encounter Summary ---
Author Organization [employer] Address 75 [facility] 7t [place] [address] Care Team Providers Care Fence Repairman Name Role Phone Patito Wilhelm MD Primary Care Provider [phone] Wilber Christie PharmD Unavailable [phone] Reason for Visit * Reason Onset Date Comments Med Refill 01/04/2025 Encounter Details Date Type Department Care Team (Late st Contact Info) Description 01/04/2025 Telephone [facility] [address] [place] [address] Patito Wilhelm MD [address] [place] [address] Med Refill Social History Tobacco Use Types [...] is your housing situation today? I have snadra hernandez 03/27/[address] you [...] * Telephone Encounter - Frank Mathias - 01/04/2025 11:25 AM EDT TC from pt requesting medication refill. Medications needing refill : oxyCODONE-acetaminophen (Percocet) 5-325 MG tablet To be sent to: [facility]/pharmacy #[id number] [place] [address] - [address] [place] [address] documented in this encounter Plan of Treatment Upcoming Encounters Date Type Department Care Team ([facility] st Contact Info) Description 03/12/2025 11:00 AM EST Office Visit [facility] [address] [place] [address] 05/10/2025 1:00 PM EST Medication Management [facility] [address] [place] [address] Wilber Christie, PharmD [address] [place] [address] documented as of this encounter Goals Goal [...] documented as of this encounter Care Teams Fence Repairman Relationship Specialty Start Date End Date Patito Wilhelm MD [address] [place] [address] PCP - General Family Medicine 11/13/18 Wilber Christie PharmD [address] [place] [address] Pharmacist Internal Medicine 01/28/23 documented as of this encounter
--- OUTSIDE RECORDS SUMMARY | 2025-02-16 09:59 | XMS_ITS | Data Portability ---
Author Organization [facility] [employer] [facility], [employer] [facility] Address [address] [place] [phone] Assessment No assessment recorded. Plan of Treatment [...] Not available Not available Not available 02/14/2024 [id number] RxNorm Not Available [facility] - production 4 03:41:49 8078 latex environme nt,medica tion Not available Not available Not available 02/14/2024 [id number] RxNorm Not Available [facility] - production 4 03:41:49 8079 levofloxa leela medicatio n Not available Not available Not available 02/14/2024 [id number] RxNorm Not Available [facility] - production 4 [...] blood by Pulse oximetry Body temperature Systolic And Diastolic Provider Name and Address Organization Details Last Updated DateTime 3 73 /min 20 /min 98 % 98 % 97.9 [degF] 194/94 mm[Hg] Not Available [facility] - production 3 [...] Diagnosis SNOMED-CT Code Diagnosis ICD10 Code Diagnosis IMO Codes Diagnosis Note [id number] Ravi Castillo MD Main - [facility] [address] [place] [address] 12/31/2022 17:19:52 01/03/2023 11:18:56 Essential hypertension [id number] I10 This 57-year-ol d female with hypertensi on treated with metoprolol XL and valsartan called [facility] because her BP has been elevated today. Earlier today she had a knee injection. Her EKG showed no acute findings. Her BP was trending down when the equity manager arrived. I recommende d that she monitor [...] [employer] Member ID Guarantor Name 06/21/2023 1 [facility]INT [facility] - DOS ON OR AFTER 2022 - DUAL ELIGIBLE - SENIOR LIVING OPTIONS AND ONE CARE (MEDICARE REPLACEMENT/ADV ANTAGE - HMO) Ameena Tejada [id number] Ameena Tejada Notes Date Note Type Note Provider Name and Address Organization Details Recorded Time 12/31/2022 text/html ROS as noted in the HPI HPI: Patient with trending elevated BP's on last visit at [facility]. Though may be due to pain. [...] required to process visit Ravi Castillo MD [address] [facility],[address] [facility], [place], [address], [employer] 12/31/2022 17:26:53 OBGyn Episode No OBEpisode recorded.
--- OUTSIDE RECORDS SUMMARY | 2025-02-16 10:00 | XMS_ITS | Clinical Summary ---
Author Organization [facility]. Address [address] [address] Phone Care Team Providers Care Fell Cutter Name Role Phone Patito Wilhelm MD Primary Care Provider [phone] Allergies Active Allergy Reactions Criticality Noted Date [...] morning and 1 capsule in the evening. 11/13/19 23 Active oxyCODONE-subhash taminophen (PERCOCET) 5-325 MG per tablet TAKE 1 TABLET BY MOUTH EVERY 12 (TWELVE) HOURS IF NEEDED FOR SEVERE PAIN FOR UP TO 28 DAYS. 04/03/20 18 Active omeprazole (PriLOSEC) [address] capsule Take 1 capsule by mouth every morning 01/26/20 22 Active nystatin (MYCOSTATIN) cream APPLY TO AFFECTED AREA TWICE A DAY 12/07/19 23 Active montelukast (SINGULAIR) 10 MG tablet Take 1 tablet by mouth 1 (one) time each day in the morning Active metoprolol tartrate 25 MG tablet Take 25 mg by mouth 05/22/19 19 Active meclizine (ANTIVERT) 25 MG tablet TAKE 1 TABLET BY MOUTH IF NEEDED IN THE MORNING, AT NOON, AND AT BEDTIME FOR DIZZINESS OR NAUSEA. 12/01/19 23 Active OneTouch Delica Lancets 33G misc 1 Lancet 09/23/19 23 Active Insulin Pen Needle (B-D ULTRAFINE III SHORT PEN) 31G X 8 MM misc USE DIRECTED 3 TIMES A DAY 10/04/19 22 Active insulin aspart protamine-ins ulin aspart (NovoLOG MIX 70/30 FLEXPEN) (70-30) 100 UNIT/ML injection INJECT 23 UNITS TWICE DAILY BY SUBCUTANEOUS ROUTE PER INSULIN PROTOCOL 01/15/20 23 Active fluticasone HFA (Flovent HFA) 110 MCG/ACT inhaler PLEASE SEE ATTACHED FOR DETAILED DIRECTIONS 11/06/19 23 Active DULoxetine (CYMBALTA) [address] capsule TAKE 1 CAPSULE BY MOUTH EVERY DAY Active dicyclomine (BENTYL) 10 MG capsule TAKE 1-2 CAPSULE BY MOUTH EVERY 6 HOURS NEEDED FOR ABDOMINAL DISCOMFORT FOR 30 DAYS 90 01/02/20 22 Active Cholecalcifer ol 50 MCG (1999 UT) capsule Take 1 tablet by mouth 1 (one) time each day 01/15/20 23 Active cetirizine (ZyrTEC) 10 MG tablet Take 1 tablet by mouth 1 (one) time each day in the morning 01/04/20 23 Active Blood Glucose Monitoring Suppl (ONE TOUCH ULTRA 2) w/Device kit 1 kit 09/23/19 23 Active B Complex Vitamins (VITAMIN B COMPLEX PO) Take 1 tablet by mouth in the morning and 1 tablet in the evening. 12/07/19 23 Active Azelastine HCl 137 MCG/SPRAY solution SPRAY BOTH NOSTRILS TWICE, 2 TIMES A DAY 12/01/19 22 Active albuterol (2.5 MG/3ML) 0.083% nebulizer solution TAKE 3 ML WITH NEBULIZER EVERY 6 HOURS 04/22/19 21 Active Ozempic, 0.25 or 0.5 MG/DOSE, 2 MG/3ML solution pen-injector Inject 0.25 mg under the skin 08/12/19 24 Active rosuvastatin (CRESTOR) 20 MG tablet Take 20 mg by mouth 1 (one) time each day 07/27/19 24 Active budesonide-fo rmoterol (SYMBICORT) 160-4.5 MCG/ACT inhaler Inhale 2 puffs in the morning and 2 puffs before bedtime. Rinse mouth with water after use to reduce aftertaste and incidence of candidiasis. Do not swallow.. Active celecoxib (CeleBREX) 200 MG capsule Take 200 mg by mouth in the morning and 200 mg in the evening. Active valsartan-hyd roCHLOROthiaz mariat (DIOVAN-HCT) 320-25 MG per tablet TAKE 1 TABLET BY MOUTH EVERY DAY 90 tablet 3 01/28/20 Active valsartan-hyd roCHLOROthiaz maria t (Diovan HCT) 320-25 MG per tablet Take 1 tablet by mouth 1 (one) time each day Need not fill hctz if filling this prescriptions 90 tablet 3 02/07/20 24 025 Discontinued Active Problems Problem Noted Date Diagnosed Date [...] 01/10/2023 05/03/2023 Pain in right shoulder 12/13/2022 4 Overview (05/03/2023): Last Assessment & Plan: - [...] & Plan: - recommended to check with house painting instructor if she can receive steroid injection Chronic primary bladder pain syndrome 08/14/2012 05/03/2023 Overview (05/03/2023): Last Assessment & Plan: -[place]ed [place], [facility], last seen on 02/22/22 -Prescribed tamsulosin Chronic low back pain 08/14/2012 05/03/2023 Overview (05/03/2023): Last Assessment & Plan: -Seen by house painting instructor on 12/16/22, yet mainly for left knee [...] (05/03/2023): Last Assessment & Plan: -Followed by [facility] pulmonology, last seen on 11/30/21 -Questionable adherence to medications according to refill history -Reviewed her medications today and discussed about the importance of adherence -Continue Dulera and Spiriva as maintenance -Continue albuterol HFA prn as rescue -Consider referring to MTM -Urged to schedule appt with room service waiter; pt verbalized understanding Type 2 diabetes mellitus [...] active Hep C. -Check the satus of [place] -Last eye exam: 06/18/22, no retinopathy -Last [...] Last Assessment & Plan: - Following with [facility], last seen on 12/16/22, started on Euflexxa injection - XR on 12/16/22 showed : mild Osteoarthritis - Currently receiving intraarticular Euflexxa (hyaluronate derivative) Injection - Continue current Tx plan per house painting instructor Viral hepatitis C 09/20/2011 05/03/2023 Encounters Date Type Department Care Team Description 02/06/2025 Orders Only [facility] [address] [address] Jareth Rowan MD Essential (primary) hypertension 01/26/2025 Refill [facility] [address] [phone] Jareth Rowan MD from Last 3 Months Social History Tobacco Use Types Packs/Day Years [...] Care Team (Late st Contact Info) Description 03/07/2025 4:00 PM EST Office Visit [facility] [address] [place] [address] Jareth Rowan MD [address] [phone] Health Maintenance Due Date Last Done Comments Breast Cancer Screening 1965 Hepatitis B Vaccine (1 of 3 - 19+ 3-dose series) 1984 Colorectal Cancer Screening: Annual FOBT 2014 Colorectal Cancer Screening: Sigmoidoscopy 2014 Diabetes: Pedal Pulse Checked 02/15/2023 Diabetes: Sensory Foot Exam 02/15/2023 Diabetes: Visual Foot Exam 02/15/2023 Diabetes: Hemoglobin A1C 05/07/2025 025, 10/29/2024, 06/11/2024, Additional history exists Diabetes: Ophthalmology Exam 10/09/2025 10/09/2024 Colorectal Cancer Screening: Colonoscopy 10/18/2033 10/19/2023 Pneumococcal Vaccine: 50+ Years Completed 10/08/2022, 05/10/2022, 02/13/2002 Pneumococcal Vaccine: Peds ( 0 to 5 Years) and At-Risk Patients (6 to 49 Years) Discontinued 10/08/2022, 05/10/2022, 02/13/2002 Influenza Vaccine Completed 01/23/2025, , 01/10/2023, Additional history exists [place] [address] ([id number]) [place] [address] ([id number]) Care Teams Fell Cutter Relationship Specialty Start Date End Date Patito Wilhelm MD [address] [place] [address]78 PCP - General Family Medicine 02/07/24
--- OUTSIDE RECORDS SUMMARY | 2025-02-16 10:00 | XMS_ITS | Encounter Summary ---
Author Organization [employer] Address 75 [facility] 7t [place] [address] Care Team Providers Care Web Content Director Name Role Phone Patito Wilhelm MD Primary Care Provider [phone] Wilber Christie PharmD Unavailable [phone] Reason for Visit * Reason Onset Date Comments Med Refill 02/07/2023 Encounter Details Date Type Department Care Team (Late st Contact Info) Description 02/07/2023 Telephone [facility] MEDICINE [address] [place] [address] Patito Wilhelm MD [address] [place], [place] [phone] Med Refill Social History Tobacco Use Types [...] Description 03/12/2025 11:00 AM EST Office Visit [facility] MED[facility]INE [address] [place] [address] 05/10/2025 1:00 PM EST Medication Management [facility]INE [address] [place] [phone] Wilber Christie PharmD [address] [place] [address] documented as of this encounter Goals Goal Patient Goal Type Associated Problems Recent Progress Patient-Stated? Author Blood Pressure < 140/90 Blood Pressure 120/60( 025 3:07 PM EDT) No Wilber Christie, PharmD documented as of this encounter Visit Diagnoses Not on filedocumented in this encounter Additional Health Concerns Assessment Noted Time PHQ-9 Depression Total Score: 6 07/27/19 1:10 PM EDT documented as of this encounter Care Teams Web Content Director Relationship Specialty Start Date End Date Patito Wilhelm MD [address] [place] [address] PCP - General Family Medicine 11/13/18 Wilber Christie, PennyD [address] [place] [address] Pharmacist Internal Medicine 01/28/23 documented as of this encounter
--- OUTSIDE RECORDS SUMMARY | 2025-02-16 10:00 | XMS_ITS | Encounter Summary ---
Author Organization [employer] Address [address] [place] [address] 7 [place] [address] Care Team Providers Care Engineering Design Supervisor Name Role Phone Patito Wilhelm MD Primary Care Provider [phone] Wilber Christie PharmD Unavailable [phone] Encounter Details Date Type Department Care Team (Latest Contact Info) Description 03/24/2020 Abstract [facility] CONVERSIONS Dental, Provider, DDS Social History Tobacco [...] Description 03/12/2025 11:00 AM EST Office Visit [facility] MEDICINE [address] [place] [address] 05/10/2025 1:00 PM EST Medication Management [facility] MEDICINE [address] [place] [address] Wilber Christie, PharmD [address] [place] [address] documented as of this encounter Visit Diagnoses Not on filedocumented in this encounter Care Teams Engineering Design Supervisor Relationship Specialty Start Date End Date Patito Wilhelm MD [address] [place] [address] PCP - General Family Medicine 11/13/18 Wilber Christie, PennyD [facility] [place] [address] Pharmacist Internal Medicine 01/28/23 documented as of this encounter
--- OUTSIDE RECORDS SUMMARY | 2025-02-16 10:00 | XMS_ITS | Encounter Summary ---
Author Organization [employer] Address [address] [facility] 7t [place] [address] Care Team Providers Care Cosmetic Sales Name Role Phone Patito Wilhelm MD Primary Care Provider [phone] Wilber Christie PharmD Unavailable [phone] Reason for Visit * Reason Comments Med Refill Encounter Details Date Type Department Care Team (Late st Contact Info) Description 03/27/2024 Refill [facility] [address] [place] [address] Patito Wilhelm MD [address] [place] [address] Type 2 diabetes mellitus with diabetic polyneuropathy, with long-term current use of insulin ([facility]) Social History Tobacco Use Types Packs/Day Years [...] Description 03/12/2025 11:00 AM EST Office Visit [facility] [address] [place] [phone] 05/10/2025 1:00 PM EST Medication Management [facility] [address] [place] [phone] Wilber Christie PharmD [address] [place] [address] documented as of this encounter Goals Goal [...] polyneuropathy, with long-term current use of insulin (HCC) documented in this encounter Additional Health Concerns Assessment Noted Time PHQ-9 Depression Total Score: 11 024 1:39 PM EDT documented as of this encounter Care Teams Cosmetic Sales Relationship Specialty Start Date End Date Patito Wilhelm MD [address] [place] [address] PCP - General Family Medicine 11/13/18 Wilber Christie, Kaia [address] [place] [address] Pharmacist Internal Medicine 01/28/23 documented as of this encounter
--- OUTSIDE RECORDS SUMMARY | 2025-02-16 10:00 | XMS_ITS | Encounter Summary ---
Author Organization [employer] Address 75 [facility] 7t [place] [address] Care Team Providers Care Ecommerce Merchandising Manager Name Role Phone Patito Wilhelm MD Primary Care Provider [phone] Wilber Christie PharmD Unavailable [phone] Reason for Visit * Reason Onset Date Comments Med Refill 04/06/2023 Encounter Details Date Type Department Care Team (Late st Contact Info) Description 04/06/2023 Telephone [facility] MEDICINE [address] [place] [address] Patito Wilhelm MD [address] [place] [address] Med Refill Social History Tobacco Use Types [...] (Percocet) 5-325 MG tablet Please sent to [facility]/pharmacy #[id number] [place], [place] - [address] [place] [address] documented in this encounter Plan of Treatment Upcoming Encounters Date Type Department Care Team (Late st Contact Info) Description 03/12/2025 11:00 AM EST Office Visit [facility] MEDICINE [address] [place] [phone] 05/10/2025 1:00 PM EST Medication Management [facility] MEDICINE [address] [place] [phone] Wilber Christie PharmD [address] [place] [phone] documented as of this encounter Goals Goal [...] documented as of this encounter Care Teams Ecommerce Merchandising Manager Relationship Specialty Start Date End Date Patito Wilhelm MD [address] [place] [address] PCP - General Family Medicine 11/13/18 Wilber Christie, PennyD [address] [place] [address] Pharmacist Internal Medicine 01/28/23 documented as of this encounter
--- OUTSIDE RECORDS SUMMARY | 2025-02-16 10:00 | XMS_ITS | Encounter Summary ---
Author Organization [employer] Address [address] [place] [address] [place], [place] [address] Care Team Providers Care Environmental Issues Instructor Name Role Phone Patito Wilhelm MD Primary Care Provider [phone] Wilber Christie PharmD Unavailable [phone] Reason for Visit * Reason Comments Med Refill Encounter Details Date Type Department Care Team (Late Contact Info) Description 01/13/2023 Refill [facility] MEDICINE [address] [place] [address] Ashley Goodman MD [address] [place] [address] Chronic right shoulder pain Social History Tobacco [...] Department Care Team (Late Contact Info) Description 03/12/2025 11:00 AM EST Office Visit [address] [address] 05/10/2025 1:00 PM EST Medication Management [facility] MEDICINE [address] [place] [address] Wilber Christie, PharmD [address] [place] [address] documented as of this encounter Visit Diagnoses Diagnosis Chronic right shoulder pain Pain in joint, shoulder region documented in this encounter Additional Health Concerns Assessment Noted Time PHQ-9 Depression Total Score: 6 07/27/19 23 1:10 PM EDT documented as of this encounter Care Teams Environmental Issues Instructor Relationship Specialty Start Date End Date Patito Wilhelm MD [address] [place] [address] PCP - General Family Medicine 11/13/18 Wilber Christie, PharmD [address] [place] [address] Pharmacist Internal Medicine 01/28/23 documented as of this encounter
--- OUTSIDE RECORDS SUMMARY | 2025-02-16 10:00 | XMS_ITS | Encounter Summary ---
Author Organization [employer] Address [address] [place] [address] 7 [place] [address] Care Team Providers Care Senior Telecommunications Consultant Name Role Phone Patito Wilhelm MD Primary Care Provider [phone] Wilber Christie PharmD Unavailable [phone] Reason for Referral * Consultation (Routine) - Closed Specialty Diagnoses / Procedures Referred By [place] t Referred To Contact Pharmacy Diagnoses Primary hypertension Type 2 diabetes mellitus with both eyes affected by mild nonproliferative retinopathy without macular edema, with long-term current use of insulin (HCC) Patito Wilhelm MD [address] [place] [id number] Phone: tel: fax: Referral ID Status Reason Start Date Expiration Date V isits Requested Visits Authorized [id number] Closed Consult and Treat 02/09/2024 02/08/2025 6 6 Encounter Details Date Type Department Care Team (Late st Contact Info) Description 02/09/2024 Orders Only [facility] [address] [place] [phone] Patito Wilhelm MD [address] [place], [place] [phone] Primary hypertension (Primary Dx); Type 2 diabetes mellitus with both eyes affected by mild nonproliferative retinopathy without macular edema, with long-term current use of insulin ([facility]/HCC) Social History Tobacco Use Types Packs/Day Years [...] AM EST Office Visit [facility] [address] [place] [address] [phone] 05/10/2025 1:00 PM EST Medication Management [facility] [address] [place] [phone] Wilber Christie, PharmD [address] [place] [address] Scheduled Referrals Name Type Priority Associated Diagnoses Orde r Schedule Referral to Pharmacy CD Outpatient Referral Routine Primary hypertension Type 2 diabetes mellitus with both eyes affected by mild nonproliferative retinopathy without macular edema, with long-term current use of insulin ([facility]) Ordered: 02/09/2024 documented as of this encounter [...] edema, with long-term current use of insulin ([facility]) documented in this encounter Additional Health Concerns Assessment Noted Time PHQ-9 Depression Total Score: 11 024 1:39 PM EDT documented as of this encounter Care Teams Senior Telecommunications Consultant Relationship Specialty Start Date End Date Patito Wilhelm MD [address] [place] [address] PCP - General Family Medicine 11/13/18 Wilber Christie, Kaia [address] [place] [address] Pharmacist Internal Medicine 01/28/23 documented as of this encounter
--- OUTSIDE RECORDS SUMMARY | 2025-02-16 10:00 | XMS_ITS | Patient Health Record ---
Author Organization [facility] Address [address] [place] [address] Care Team Providers Care Test Preparation Tutor Name Role Phone Choco GANDHI, Patito Primary Care Provider Leonardo Harding [phone] Allergies Allergen (clinical drug ingredient) Drug/Non Drug Allergy documented on EMR Reaction Allergy Type Onset Date Status Avandia (uncoded) Unknown Allergy Ac tive aspirin ASA (uncoded) Unknown Allergy Active Levaquin (uncoded) Unknown Allergy A ctive azithromycin zithromax (uncoded) Unknown Allergy Active Glucotrol Unknown Drug Allergy Active Flexeril Unknown Drug Allergy Active Reason For Referral No Information Medications Medication SIG (Take, Route, Frequency, Duration) Notes Start Date End Date Status ZyrTEC 10 MG 1 tablet Orally Once a day; Duration: 30 day(s) Active Trulicity Active Azelastine & Fluticasone 137 & 50 MCG/ACT as directed Nasally Acti ve Nitroglycerin Active Dulera 200-5 MCG/ACT 2 puffs Inhalation Twice a day Active Prevalite 4 GM/DOSE USE 1/2-1 SCOOP 1-2X A DAY FOR DIARRHEA ORALLY 30 DAY(S); Duration: 90 Active Albuterol Sulfate (sensor) 108 (90 Base) MCG/ACT 1 puff as needed Inhalation every 4 hrs Active Cholestyramine 4 GM/DOSE 1/2 to 1 scoop Orally QD-BID for diarrhea Active Docusate Sodium 100 MG TAKE 1 CAPSULE BY MOUTH EVERY DAY NEEDED Oral; Duration: 30 Active Ventolin HFA 108 (90 Base) MCG/ACT TAKE 2 PUFFS BY MOUTH EVERY 4 TO 6 HOURS NEEDED Inhalation; Duration: 30 Active Albuterol Sulfate HFA 108 (90 Base) MCG/ACT TAKE 2 PUFFS BY MOUTH EVERY 4 TO 6 HOURS NEEDED Inhalation; Duration: 16 Active MiraLax (colon prep) 17 GM/SCOOP 1 238Gm bottle mixed with Gatorade or Crystal Light Orally begin at 5:00 p.m. the day before the procedure; Duration: 1 day 07/20/2023 Active Atorvastatin Calcium 10 MG 1 tablet Orally Once a day Active Dulcolax (colon prep) 5 MG take at 3:00 p.m and 7:00p.m. Orally two tablets twice a day for one day; Duration: 1 day 07/20/2023 Active Flonase 50 MCG/ACT 1 spray in each nost ril Nasally Once a day Active Nitroglycerin 0.4 MG as directed Subling ual as directed Active amLODIPine Besylate 5 MG TAKE 1 TABLET B Y MOUTH EVERY DAY Oral; Duration: 30 Active Omeprazole 20 MG 1 Orally Once a day every morning; Duration: 90 days Active Losartan Potassium 50 MG 1 tablet Orally Once a day Active Metoprolol Succinate ER 50 MG TAKE 1 TABLET BY ORAL ROUTE EVERY DAY Orally Once a day Active Dicyclomine HCl 10 MG 1 or 2 capsules Or ally Every 6 hours if needed for abdominal cramps/discomfort; Duration: 30 days Active oxyCODONE-Acetaminophen 5-325 MG 1 tablet as needed Orally TID Active Melatonin 3 MG 1 tablet at bedtime as needed with food Orally Once a day Active Carafate 1 GM 1 tablet on an empty stomach Orally TID; Duration: 30 day(s) 01/01/2019 Not-Taking ProAir HFA 108 (90 Base) MCG/ACT 2 puffs as needed Inhalation every 6 hrs Active NovoLOG 100 UNIT/ML 70/30 Subcutaneous a s directed Active Singulair 10 MG 1 tablet Orally Once a day Active Vitamin B Complex - as directed Orally Active Valsartan-hydroCHLOROthia zide 160-25 MG 1 tablet Orally Once a day; Duration: 30 day(s) 07/21/2022 Active Vitamin D-3 125 MCG (5000 UT) as directed Orally Active DULoxetine HCl 20 MG 1 capsule Orally Tw ice a day; Duration: 30 day(s) Active Pregabalin 100 MG 1 capsule Orally Onc e a day Active Immunizations Vaccine Route Administration Date Status Comme nts Influenza Unknown 01/23/2018 Administered Influenza Unknown 01/16/2019 Administered Influenza Unknown 12/31/2020 Administered Influenza Unknown 02/02/2022 Administered Influenza Unknown 03/08/2023 Administered Problems Problem Type SNOMED Code ICD Code Onset Dates Problem Status W/U Status Risk Notes Problem Colon cancer screening (404958509) Colon cancer screening (Z12.11) Active confirmed Problem Diverticular disease of colon (305125070) Diverticulosis of large intestine without perforation or abscess without bleeding (K57.30) Active confirmed Problem Irritable bowel syndrome with diarrhea (419785869) Irritable bowel syndrome with diarrhea (K58.0) Active confirmed Problem Right upper quadrant pain (596463285) Right upper quadrant pain (R10.11) Active confirmed Problem Nausea (583553281) Nausea (R11.0) Active confir med Problem Gastroesophageal reflux disease without esophagitis (688202979) Gastroesophageal reflux disease without esophagitis (K21.9) Active confirmed Problem Chronic hepatitis C (825753582) Chronic hepatitis C without hepatic coma (B18.2) Active confirmed Problem Chronic hepatitis C (364282205) Chronic hepatitis C (B18.2) Active confirmed Problem Right upper quadrant pain (327663748) Abdominal pain, right upper quadrant (R10.11) Active confirmed Problem Belching (10783275) Belching (R14.2) Active con firmed Problem History of hepatitis C (06861912136564) History of hepatitis C (Z86.19) Active confirmed Problem Right upper quadrant pain (708433034) RUQ abdominal pain (R10.11) Active confirmed Problem Irritable bowel syndrome (21806202) Irritable bowel syndrome, unspecified type (K58.9) Active confirmed Problem Gallbladder disease (95022191) Gallbladder sludge (K82.8) Active confirmed Problem Hepatic fibrosis (disorder) (74547375) Liver fibrosis (K74.00) Active confirmed Encounters Encounter Location Date Provider Diagnosis [facility] [address] [place] [address] 07/19/2024 Leonardo [place] Plan Of Treatment Pending [...] Insured Coverage Start Date Coverage End Date [facility] [address] Attn Claims JOSE Workman [phone] [id number] JAMEL NASSAR Self - patient is the [...] with hiatal hernia Irritable bowel syndrome Denies AL, stroke, and renal disease Fatty liver EGD [...]
--- OUTSIDE RECORDS SUMMARY | 2025-02-16 10:00 | XMS_ITS | Encounter Summary ---
Author Organization [employer] Address [address] [place] [address] [address] [place] [address] Care Team Providers Care Back Tender Cloth Printing Name Role Phone Patito Wilhelm MD Primary Care Provider [phone] Wilber Christie PharmD Unavailable [phone] Encounter Details Date Type Department Care Team (Latest Contact Info) Description 02/21/2019 Abstract [facility] CONVERSIONS Dental, Provider, DDS Social [...] Description 03/12/2025 11:00 AM EST Office Visit [facility] [address] [place] [phone] 05/10/2025 1:00 PM EST Medication Management [facility] [address] [place] [phone] Wilber Christie, PharmD [address] [place] [address] documented as of this encounter Visit Diagnoses Not on filedocumented in this encounter Care Teams Back Tender Cloth Printing Relationship Specialty Start Date End Date Patito Wilhelm MD [address] [place] [address] PCP - General Family Medicine 11/13/18 Wilber Christie, PennyD [address] [facility] [place] [address] Pharmacist Internal Medicine 01/28/23 documented as of this encounter
--- OUTSIDE RECORDS SUMMARY | 2025-02-16 10:00 | XMS_ITS | Clinical Summary ---
Author Organization [facility] Address [address] [place] [address] [address] [place] [address] Care Team Providers Care Roadside Mechanic Name Role Phone Patito Wilhelm MD Primary Care Provider Wilber Christie PharmD Unavailable [phone] Allergies Active Allergy Reactions Criticality Noted Date [...] HOURS NEEDED FOR ABDOMINAL CRAMPS/DIARRHEA 022 Active omeprazole (PriLOSEC) [address] [...] 3 ML WITH NEBULIZER EVERY 6 HOURS 023 Active budesonide-formote rol (Symbicort) 160-4.5 MCG/ACT inhaler Inhale 2 puffs in the morning and at bedtime. Active Alcohol Swabs (Alcohol Prep Pads) 70 % padsIndications:Ty pe 2 diabetes mellitus with diabetic polyneuropathy, with long-term current use of insulin ([facility]) Apply 1 Pad topically 2 times daily. 100 each Active celecoxib (CeleBREX) 200 MG capsule TAKE 1 CAPSULE ORALLY EVERY 12 HOURS NEEDED FOR PAIN Active valsartan-hydroCHL OROthiazide (Diovan-HCT) 320-25 MG tablet Take 1 tablet by mouth Once per day. Active azelastine (Astelin) 0.1 % nasal spray [...] edema, with long-term current use of insulin ([facility]) Check blood glucose 3 times daily and as needed 100 each Active metoprolol succinate XL (Toprol XL) 50 MG 24 hr tabletIndications: Primary hypertension Take 1 tablet (50 mg) by mouth Once per day. Do not crush or chew. 90 tablet 3 Active insulin aspart protamine-insulin aspart (NovoLOG MIX 70/30 FLEXPEN) (70-30) 100 UNIT/ML injectionIndicatio ns:Type 2 diabetes mellitus with both eyes affected by mild nonproliferative retinopathy without macular edema, with long-term current use of insulin ([facility]) INJECT 25 UNITS subcutaneously TWICE DAILY 15 mL Active insulin pen needle (B-D ULTRAFINE III SHORT PEN) 31G X 8 mm misc USE DIRECTED 3 TIMES A DAY 100 each 025 Active rosuvastatin (Crestor) 20 MG tabletIndications: Type 2 diabetes mellitus with both eyes affected by mild nonproliferative retinopathy without macular edema, with long-term current use of insulin (HCC) Take 1 tablet by mouth once daily 90 tablet 3 025 Active DULoxetine (Cymbalta) [address] capsule Take 1 capsule (20 mg) by mouth Once per day. Do not crush or chew. 90 capsule 3 025 Active capsaicin (Capzasin-HP) 0.1 % cream Apply thin layer by topical route up to 4 times daily for pain. 45 g 025 Active cetirizine (ZyrTEC) 10 MG tablet TAKE 1 TABLET BY MOUTH EVERY DAY IN THE MORNING 90 tablet 025 Active meclizine (Antivert) 25 MG tabletIndications: BPPV (benign paroxysmal positional vertigo), unspecified laterality Take 1 tablet (25 mg) by mouth if needed in the morning, at noon, and at bedtime for dizziness or nausea. 30 tablet 025 Active ciclopirox (Loprox) 0.77 % cream Apply topically 2 times daily. 90 g 025 Active Diclofenac Sodium 1 % gel Apply to painful area once or twice daily as needed 150 g 025 Active lidocaine (LMX 4) 4 % creamIndications:B urning sensation Apply topically if needed in the morning, at noon, in the evening, and at bedtime for mild pain. 28 g 025 11/27 Active montelukast (Singulair) 10 MG tabletIndications: Moderate persistent asthma without complication TAKE 1 TABLET BY MOUTH EVERY DAY IN THE MORNING 90 tablet 3 025 Active naloxone (Narcan) 4 mg/0.1 mL nasal spray Administer 1 spray (4 mg) into affected nostril(s) if needed for opioid reversal. May repeat every 2-3 minutes if needed, alternating nostrils, until medical assistance becomes available. 2 each 025 Active cholecalciferol VITAMIN D (Vitamin D-3) 50 MCG (2000 UT) capsule TAKE 1 CAPSULE (50 MCG) BY MOUTH ONCE PER DAY. 90 capsule 3 09/20/2 025 Active Semaglutide, 2 MG/DOSE, (Ozempic, 2 MG/DOSE,) 8 MG/3ML solution pen-injectorIndica tions:Type 2 diabetes mellitus with both eyes affected by mild nonproliferative retinopathy without macular edema, with long-term current use of insulin (HCC) INJECT 0.75 ML (2 MG) UNDER THE SKIN 1 (ONE) TIME PER WEEK. 3 mL 11 Active B Complex Vitamins (Vitamin B Complex) capsule TAKE 1 CAPSULE BY MOUTH TWICE A DAY 90 each 3 Active pregabalin (Lyrica) 100 MG capsuleIndications :Meralgia paresthetica, left Take 1 capsule by mouth, two times every day. 60 capsule Active cholestyramine (Questran) 4 g packet Take 1 dose by mouth once daily as needed for diarrhea 90 packet 1 Active oxyCODONE-acetamin ophen (Percocet) 5-325 MG tabletIndications: Chronic back pain, unspecified back location, unspecified back pain laterality Take 1 tablet by mouth every 12 (twelve) hours if needed for severe pain for up to 28 days. 56 tablet 025 03/05 Active guaiFENesin ([employer] Mucus Extended Release) 600 MG 12 hr tabletIndications: Bronchitis TAKE 1 TAB TWICE DAILY NEEDED FOR COUGH/PHLEGM. DO NOT CRUSH, CHEW, OR SPLIT. 40 tablet 025 01/23 Discontinued( Med list cleanup (will not trigger notification to Pharmacy)) pregabalin (Lyrica) 75 MG capsuleIndications :Meralgia paresthetica, left TAKE 1 CAPSULE BY MOUTH, TWO TIMES EVERY DAY. 60 capsule 1 025 02/04 Discontinued( Reorder (will not trigger notification to Pharmacy)) oxyCODONE-acetamin ophen (Percocet) 5-325 MG tabletIndications: Chronic back pain, unspecified back location, unspecified back pain laterality Take 1 tablet by mouth every 12 (twelve) hours if needed for severe pain for up to 28 days. 56 tablet 025 02/05 Discontinued( Reorder (will not trigger notification to Pharmacy)) Active Problems Problem Noted Date Diagnosed Date Left shoulder pain 02/03/2025 Assessment & Plan (02/03/2025 6:56 PM EDT): - Status post left shoulder arthroscopic surgery on 06/29/2024 - Following with [facility] orthopedic Burning sensation 11/27/2024 Assessment & Plan (11/27/2024 5:33 PM EDT): Neuropathy? C/w pregabaline as prescribed I will prescribe local lidocaine cream F/u with PCP Long-term current use of opiate analgesic 2024 Overview (10/09/2024): Medication: Percocet 5/325mg Q12H PRN Indication: lumbar radiculopathy, fibromyalgia Last [employer]EL[employer] Agreement: 07/06/24 LEAD PYTHON DEVELOPER visits Q3-4 months Assessment & Plan [...] nasal spray Fibromyalgia 12/12/2023 Assessment & Plan (02/08/2025 11:23 PM EDT): - continue duloxetine and pregabalin Assessment & Plan (10/09/2024 6:15 PM EDT): [...] 09/14/2023 Sleep disturbance 08/30/2023 Assessment & Plan (02/08/2025 11:29 PM EDT): - will order sleep study Assessment & Plan (08/30/2023 5:34 PM EDT): - will order sleep study Impingement of right shoulder 07/25/2023 Benign paroxysmal positional vertigo 07/25/2023 Assessment & Plan (12/12/2023 4:58 AM EDT): - continue judicious use of meclizine for symptoms of BPPV - reviewed signs and symptoms to contact for further evaluation of dizziness Lumbosacral radiculopathy 06/01/2023 Assessment & Plan (02/08/2025 11:28 PM EDT): -Seen by stage setting painter apprentice on 03/30/23 -Received lumbar facet block bilateral on 04/28/22 -Received DEE L5-S1 on 04/19/23 -Continue judicious use of oxycodone-APAP and pregabalin -Continue topical diclofenac Assessment & Plan (12/11/2024 2:00 PM EDT): - Cont following with specialists - Good engagement and participation with Group Medical Visit model - Encouraged multifactorial approach to pain control including pharm and non- pharm modalities - UTOX and Pill count as expected Assessment & Plan (10/29/2024 12:57 PM EDT): -Seen by stage setting painter apprentice on 03/30/23 -Received lumbar facet block bilateral [...] Plan (12/12/2023 4:47 AM EDT): -Seen by stage setting painter apprentice on 03/30/23 -Received lumbar facet block bilateral on 04/28/22 -Received DEE L5-S1 on 04/19/23 -Continue judicious use of oxycodone-APAP and pregabalin -Continue topical diclofenac Assessment & Plan (12/12/2023 4:55 AM EDT): >>ASSESSMENT AND PLAN FOR LUMBOSACRAL RADICULOPATHY WRITTEN ON 06/04/2023 5:53 AM BY PATITO WILHELM MD -Seen by stage setting painter apprentice on 03/30/23 -Received lumbar facet block bilateral [...] for diabetes Dyslipidemia 01/10/2023 Assessment & Plan (02/08/2025 11:20 PM EDT): - last lipid profile: 07/06/24 TC 171; TG 143; HDL 43; LDL 100 - current medication: Atorvastatin 10 mg at bedtime, consider increasing as tolerated - continue working on lifestyle modification Assessment & Plan (10/31/2024 7:57 PM EDT): [...] Right shoulder pain 12/13/2022 Assessment & Plan (02/03/2025 6:54 PM EDT): - s/p right rotator cuff repair in 2004 Assessment & Plan (06/04/2023 6:00 AM EST): [...] 2014 - Cured Current use of insulin (CMS/HCC) 08/09/2022 Macromastia 07/26/2022 Assessment & Plan (04/02/2023 [...] dicyclomine Meralgia paresthetica 05/09/2022 Assessment & Plan (02/08/2025 11:28 PM EDT): -followed by pain management Assessment & Plan (10/29/2024 12:57 PM EDT): -followed by pain management Assessment & Plan (04/02/2023 6:09 AM EST): -followed by pain management Assessment & Plan (05/14/2022 4:47 PM EST): -followed by pain management -pt is now having similar sxs on her right thigh Gallbladder sludge 05/09/2022 Recurrent major depressive episodes, moderate (C MS/HCC) 07/04/2018 Assessment & Plan (12/12/2023 4:53 AM EDT): [...] (12/12/2023 4:55 AM EDT): - Followed by [facility] last appt in October 2023 - Prescribed dicyclomine - Continue as prescribed Assessment & Plan (08/30/2023 2:37 PM EDT): - Followed by [facility] last appt in July 2022 - Prescribed dicyclomine - Continue as prescribed Assessment & Plan (04/02/2023 5:59 AM EST): - Followed by [facility] last appt in July 2022 - Prescribed dicyclomine - Continue as prescribed Assessment & Plan (08/09/2022 5:24 AM EDT): - Followed by [facility] last appt in July 2022 - Prescribed dicyclomine - Continue as prescribed Trochanteric bursitis of right hip 02/09/2017 Assessment & Plan (02/08/2025 11:24 PM EDT): - recommended to check with stage setting painter apprentice if she can receive steroid injection Assessment & Plan (08/09/2022 5:26 AM EDT): - recommended to check with stage setting painter apprentice if she can receive steroid injection Chronic interstitial cystitis 08/14/2012 Assessment & Plan (08/30/2023 2:38 PM EDT): -Followed by urologist, [facility], last seen on 02/22/22 -Prescribed tamsulosin, no longer taking Assessment & Plan (04/02/2023 6:05 AM EST): -Followed by urologist [facility], last seen on 02/22/22 -Prescribed tamsulosin, no longer taking Assessment & Plan (05/14/2022 5:02 PM EST): -Followed by urologist [facility], last seen on 02/22/22 -Prescribed tamsulosin Chronic low back pain 08/14/2012 Assessment & Plan (02/08/2025 11:23 PM EDT): -Seen by stage setting painter apprentice on 02/11/23 -Received lumbar facet block bilateral on 04/28/22 -Received DEE L5-S1 on 04/19/23 -Continue judicious use of oxycodone-APAP and pregabalin -Continue topical diclofenac -Continue following with stage setting painter apprentice - Continue attending chronic pain group -Encouraged to continue PT Assessment & Plan (11/10/2024 6:27 AM EDT): -Seen by stage setting painter apprentice on 02/11/23 -Received lumbar facet block bilateral on 04/28/22 -Received DEE L5-S1 on 04/19/23 -Continue judicious use of oxycodone-APAP and pregabalin -Continue topical diclofenac -Continue following with stage setting painter apprentice - Continue attending chronic pain group -Encouraged to continue PT Assessment & Plan (12/12/2023 4:52 AM EDT): -Seen by stage setting painter apprentice on 02/11/23 -Received lumbar facet block bilateral on 04/28/22 -Received DEE L5-S1 on 04/19/23 -Continue judicious use of oxycodone-APAP and pregabalin -Continue topical diclofenac -Continue following with stage setting painter apprentice -Encouraged to continue PT Assessment & Plan (08/30/2023 2:41 PM EDT): -Seen by stage setting painter apprentice on 02/11/23 -Received lumbar facet block bilateral on 04/28/22 -Received DEE L5-S1 on 04/19/23 -Continue judicious use of oxycodone-APAP and pregabalin -Continue topical diclofenac -Continue following with stage setting painter apprentice -Encouraged to continue PT Assessment & Plan (06/04/2023 6:04 AM EST): -Seen by stage setting painter apprentice on 02/11/23 -Received lumbar facet block bilateral on 04/28/22 -Received DEE L5-S1 on 04/19/23 -Continue judicious use of oxycodone-APAP and pregabalin -Continue topical diclofenac -Continue following with stage setting painter apprentice -Encouraged to continue PT Assessment & Plan (04/02/2023 6:10 AM EST): -Seen by stage setting painter apprentice on 02/11/23 -Received lumbar facet block bilateral on 04/28/22 -Scheduled for DEE L5-S1 soon -Continue judicious use of oxycodone-APAP and pregabalin -Continue topical diclofenac Assessment & Plan (01/10/2023 5:38 PM EDT): -Seen by stage setting painter apprentice on 12/16/22, yet mainly for left knee pain -Received lumbar facet block bilateral on 04/28/22 -Continue judicious use of oxycodone-APAP and pregabalin -Continue topical diclofenac Assessment & Plan (12/26/2022 5:36 AM EDT): -Seen by stage setting painter apprentice on 02/04/22. -Received lumbar facet block bilateral on 04/28/22 Assessment & Plan (05/14/2022 5:00 PM EST): -Seen by stage setting painter apprentice on 02/04/22. -Received lumbar facet block bilateral on 04/28/22 Hypertension 11/25/2011 Assessment & Plan (02/08/2025 11:21 PM EDT): -Goal BP < 140/90 per JNC-8 and < 130/80 per ACC/AHA guideline (Treatment threshold >= 130/80 ) -History of questionable medication adherence -In a setting of chronic pain -Co-managed with pharmacist, shove up, and hospice spiritual care coordinator -s/p 24-hour BP monitoring by nephrology; recommended sleep study and increased metoprolol -Continue checking home BP -Continue working on lifestyle modification -Continue metoprolol succinate 75 mg daily -Continue Valsartan to 320mg daily -Treatment Hx: lisinpril was discontinued due to cough;Losartan was self- discontinued due to dry mouth; amlodipine was self-discontinued due to dry mouth; metoprolol was increased by hospice spiritual care coordinator from 50 mg to 75 mg. Recently BP has been stable, so Modeling Instructor tapered Metoprolol down to 25 mg, but pt started to have palpitations and self increased back to 50 mg. Assessment & Plan (10/29/2024 12:56 PM EDT): -Goal BP < 140/90 per JNC-8 and < 130/80 per ACC/AHA guideline (Treatment threshold >= 130/80 ) -History of questionable medication adherence -In a setting of chronic pain -Co-managed with pharmacist, shove up, and hospice spiritual care coordinator -s/p 24-hour BP monitoring by nephrology; recommended sleep study and increased metoprolol -Continue checking home BP -Continue working on lifestyle modification -Continue metoprolol succinate 75 mg daily -Continue Valsartan to 320mg daily -Treatment Hx: lisinpril was discontinued due to cough;Losartan was self- discontinued due to dry mouth; amlodipine was self-discontinued due to dry mouth; metoprolol was increased by hospice spiritual care coordinator from 50 mg to 75 mg. Recently BP has been stable, so Modeling Instructor tapered Metoprolol down to 25 mg, but pt started to have palpitations and self increased back to 50 mg. Assessment & Plan (03/27/2024 3:57 PM EST): -Goal BP < 140/90 per JNC-8 and < 130/80 per ACC/AHA guideline (Treatment threshold >= 130/80 ) -History of questionable medication adherence -In a setting of chronic pain -Co-managed with pharmacist, shove up, and hospice spiritual care coordinator -s/p 24-hour BP monitoring by nephrology; recommended sleep study and increased metoprolol -Continue checking home BP -Continue working on lifestyle modification -Continue metoprolol succinate 75 mg daily -Continue Valsartan to 320mg daily -Treatment Hx: lisinpril was discontinued due to cough;Losartan was self- discontinued due to dry mouth; amlodipine was self-discontinued due to dry mouth; metoprolol was increased by hospice spiritual care coordinator from 50 mg to 75 mg. Recently BP has been stable, so Modeling Instructor tapered Metoprolol down to 25 mg, but pt started to have palpitations and self increased back to 50 mg. Assessment & Plan (12/12/2023 4:46 AM EDT): -Goal BP < 140/90 per JNC-8 and < 130/80 per ACC/AHA guideline (Treatment threshold >= 130/80 ) -History of questionable medication adherence -In a setting of chronic pain -Co-managed with pharmacist, shove up, and hospice spiritual care coordinator -s/p 24-hour BP monitoring by nephrology; recommended sleep study and increased metoprolol -Continue checking home BP -Continue working on lifestyle modification -Continue metoprolol succinate 75 mg daily -Continue Valsartan to 320mg daily -Treatment Hx: lisinpril was discontinued due to cough;Losartan was self- discontinued due to dry mouth; amlodipine was self-discontinued due to dry mouth; metoprolol was increased by hospice spiritual care coordinator from 50 mg to 75 mg Assessment & Plan (08/30/2023 2:37 PM EDT): -Goal BP < 140/90 per JNC-8 and < 130/80 per ACC/AHA guideline (Treatment threshold >= 130/80 ) -Questionable medication adherence -Co-managed with pharmacist and shove up -Continue checking home BP -Continue working on [...] -Questionable medication adherence -Co-managed with pharmacist and shove up -Continue checking home BP -Continue working on [...] -Questionable medication adherence -Co-managed with pharmacist and shove up -Continue checking home BP -Continue working on [...] -CDTM referral Asthma 09/20/2011 Assessment & Plan (02/08/2025 11:28 PM EDT): -Followed by [facility] pulmonology, last seen on 10/10/2024, -Currently prescribed budesonide / formoterol (Symbicort) and tiotropium (Spiriva) as maintenance -Continue albuterol HFA prn as rescue -Treatment Hx: Previously on fluticasone (Flovent), which was changed to mometasone / formoterol (Dulera). Mometasone / formoterol (Dulera) was changed to budesonide / formoterol (Symbicort) in 2023 - Improved medication adherence. Consider SMART. Assessment & Plan (11/10/2024 6:30 AM EDT): -Followed by [facility] pulmonology, last seen on 10/10/2024, -Currently [...] Plan (03/27/2024 3:55 PM EST): -Followed by [facility] pulmonology, last seen on 03/28/23, switched mometasone / formoterol (Dulera) to budesonide / formoterol (Symbicort) -Questionable adherence to medications according to refill history, she is unaware of budesonide / formoterol (Symbicort) prescription -Reviewed her medications today and discussed about the importance of adherence; Advised to excelsior picker her budesonide / formoterol (Symbicort) and get her lab done prior to next appointment with weatherseal technician -Currently prescribed budesonide / formoterol (Symbicort) and tiotropium (Spiriva) as maintenance -Continue albuterol HFA prn as rescue -Treatment Hx: Previously on fluticasone (Flovent), which was changed to mometasone / formoterol (Dulera). Mometasone / formoterol (Dulera) was changed to budesonide / formoterol (Symbicort) most recently -Reviewed the importance of medication adherence and recommended to contact pharmacist and weatherseal technician for clarification of currently prescribed inhalers. Assessment & Plan (12/06/2023 1:45 PM EDT): -Followed by [facility] pulmonology, last seen on 03/28/23, switched mometasone / formoterol (Dulera) to budesonide / formoterol (Symbicort) -Questionable adherence to medications according to refill history, she is unaware of budesonide / formoterol (Symbicort) prescription -Reviewed her medications today and discussed about the importance of adherence; Advised to excelsior picker her budesonide / formoterol (Symbicort) and get her lab done prior to next appointment with weatherseal technician -Currently prescribed budesonide / formoterol (Symbicort) and tiotropium (Spiriva) as maintenance -Continue albuterol HFA prn as rescue -Treatment Hx: Previously on fluticasone (Flovent), which was changed to mometasone / formoterol (Dulera). Mometasone / formoterol (Dulera) was changed to budesonide / formoterol (Symbicort) most recently -Reviewed the importance of medication adherence and recommended to contact pharmacist and weatherseal technician for clarification of currently prescribed inhalers. Assessment & Plan (08/30/2023 2:37 PM EDT): -Followed by [facility] pulmonology, last seen on 03/28/23, switched mometasone / formoterol (Dulera) to budesonide / formoterol (Symbicort) -Questionable adherence to medications according to refill history, she is unaware of budesonide / formoterol (Symbicort) prescription -Reviewed her medications today and discussed about the importance of adherence; Advised to excelsior picker her budesonide / formoterol (Symbicort) and get her lab done prior to next appointment with weatherseal technician -Currently prescribed budesonide / formoterol (Symbicort) and tiotropium (Spiriva) as maintenance -Continue albuterol HFA prn as rescue -Treatment Hx: Previously on fluticasone (Flovent), which was changed to mometasone / formoterol (Dulera). Mometasone / formoterol (Dulera) was changed to budesonide / formoterol (Symbicort) most recently -Reviewed the importance of medication adherence and recommended to contact pharmacist and weatherseal technician for clarification of currently prescribed inhalers. Assessment & Plan (06/04/2023 5:58 AM EST): -Followed by [facility] pulmonology, last seen on 03/28/23, switched mometasone / formoterol (Dulera) to budesonide / formoterol (Symbicort) -Questionable adherence to medications according to refill history, she is unaware of budesonide / formoterol (Symbicort) prescription -Reviewed her medications today and discussed about the importance of adherence; Advised to excelsior picker her budesonide / formoterol (Symbicort) and get her lab done prior to next appointment with weatherseal technician -Currently prescribed budesonide / formoterol (Symbicort) and tiotropium (Spiriva) as maintenance -Continue albuterol HFA prn as rescue -Treatment Hx: Previously on fluticasone (Flovent), which was changed to mometasone / formoterol (Dulera). Mometasone / formoterol (Dulera) was changed to budesonide / formoterol (Symbicort) most recently -Reviewed the importance of medication adherence and recommended to contact pharmacist and weatherseal technician for clarification of currently prescribed inhalers. Assessment & Plan (04/02/2023 5:57 AM EST): -Followed by [facility] pulmonology, last seen on 11/30/21 -Questionable adherence to medications according to refill history -Reviewed her medications today and discussed about the importance of adherence -Continue mometasone / formoterol (Dulera) and tiotropium (Spiriva) as maintenance -Continue albuterol HFA prn as rescue -Urged to schedule appt with weatherseal technician; pt verbalized understanding Assessment & Plan (01/10/2023 2:06 PM EDT): -Followed by [facility] pulmonology, last seen on 11/30/21 -Questionable adherence to medications according to refill history -Reviewed her medications today and discussed about the importance of adherence -Continue Dulera and Spiriva as maintenance -Continue albuterol HFA prn as rescue -Consider referring to MTM -Urged to schedule appt with weatherseal technician; pt verbalized understanding Assessment & Plan (12/26/2022 5:30 AM EDT): -Followed by [facility] pulmonology, last seen on 11/30/21 -Questionable adherence to medications according to refill history -Reviewed her medications today and discussed about the importance of adherence -Continue Dulera and Spiriva as maintenance -Continue albuterol HFA prn as rescue -Consider referring to MTM -Urged to schedule appt with weatherseal technician; pt verbalized understanding Assessment & Plan (08/09/2022 5:23 AM EDT): -Followed by [facility] pulmonology, last seen on 11/30/21 -Reviewed her medications today and discussed about the importance of adherence -Continue Dulera and Spiriva as maintenance - Continue albuterol HFA prn as rescue -Consider referring to MTM Assessment & Plan (05/14/2022 4:42 PM EST): -Followed by [facility] pulmonology, last seen on 11/30/21 -Mild wheezing today -Pt is being prescribed Dulera and Spiriva as maintanance, but patient is uncertain and medication refill history suggests questionable adherence. -Consider referring to MTM Type 2 diabetes mellitus 09/20/2011 Assessment & Plan (02/08/2025 11:22 PM EDT): -A1c 6.1% on 02/04/25, the same as 10/29/24 -Continue working on lifestyle modification. -Being prescribed Novolog 70/30 25 units qAM and 25 units qPM, advised to decrease to 24 units BID due to hypoglycemia -Continue Trulicity from 3.0 mg weekly -Previous Tx: metformin - discontinued when she had active Hep C per pt. -Check the satus of [employer] Engineyle Rachael -Last eye exam: 10/24/24 -Last foot exam: 10/29/24 -Last microalbumin test: 12/09/22 UACR 8.8 - Last lipid profile: 07/06/24 TC 171; TG 143; HDL 43; LDL 100 Last dental exam: Immunizations: up to date Assessment & Plan (11/10/2024 6:24 AM EDT): [...] FreeStyle Rachael -Last eye exam: 05/14/21 at [facility], no retinopathy -Last foot exam: 10/20/21 -Last microalbumin test: 10/20/21 UACR 12 Last lipid profile: 10/20/21 TC 197; 142; HDL 64; LDL 108. Last dental exam: Immunizations: up to date Knee pain 09/20/2011 Assessment & Plan (06/02/2023 9:41 AM EST): - Following with [facility], last seen in Jan 2023 - XR on 12/16/22 showed : mild Osteoarthritis - Received intraarticular Euflexxa (hyaluronate derivative) Injection x 3 doses in 2022 - Continue current Tx plan per stage setting painter apprentice Assessment & Plan (04/02/2023 6:14 AM EST): - Following with [facility], last seen in Jan 2023 - XR on 12/16/22 showed : mild Osteoarthritis - Received intraarticular Euflexxa (hyaluronate derivative) Injection x 3 doses in 2022 - Continue current Tx plan per stage setting painter apprentice Assessment & Plan (01/10/2023 5:41 PM EDT): - Following with [facility], last seen on 12/16/22, started on Euflexxa injection - XR on 12/16/22 showed : mild Osteoarthritis - Currently receiving intraarticular Euflexxa (hyaluronate derivative) Injection - Continue current Tx plan per stage setting painter apprentice Resolved Problems Problem Noted Date Diagnosed Date [...] Encounters Date Type Department Care Team Description 02/05/2025 Refill [facility] [address] [place], [place] [phone] Tosha Phillips, call center manager back pain, unspecified back location, unspecified back pain laterality 02/05/2025 Telephone [facility] [address] [place] [address] Patito Wilhelm MD Med Refill 02/04/2025 3:00 PM EDT Office Visit [address] [address] Patito Wilhelm MD Primary hypertension (Primary Dx); Dyslipidemia; Type 2 diabetes mellitus with both eyes affected by mild nonproliferative retinopathy without macular edema, with long-term current use of insulin ([facility]); Fibromyalgia; Chronic bilateral low back pain, unspecified whether sciatica present; Trochanteric bursitis of right hip; Chronic right shoulder pain; Meralgia paresthetica, unspecified laterality; Lumbosacral radiculopathy; Moderate persistent asthma without complication; Sleep disturbance; Chronic left shoulder pain; Immunity status testing; Meralgia paresthetica, left; Chronic back pain, unspecified back location, unspecified back pain laterality 02/04/2025 Travel 02/01/[address] [address] Patito Wilhelm MD chart prep 01/26/2025 Refill [facility] [address] [place], [place] [phone] Patito Wilhelm MD 01/24/2025 Orders Only [address] [phone] Patito Wilhelm MD Type 2 diabetes mellitus with both eyes affected by mild nonproliferative retinopathy without macular edema, with long-term current use of insulin ([facility]) (Primary Dx); Primary hypertension; Moderate persistent asthma without complication 01/23/2025 Travel 01/04/2025 Refill [facility] [address] [place] [address] Patito Wilhelm MD Type 2 diabetes mellitus with both eyes affected by mild nonproliferative retinopathy without macular edema, with long-term current use of insulin ([facility]) 01/04/2025 Refill [facility] [address] [place], [place] [phone] Tosha Phillips RN Chronic back pain, unspecified back location, unspecified back pain laterality 01/04/2025 Telephone [facility] [address] [place], [place] [phone] Patito Wilhelm MD Med Refill 12/24/2024 Refill [facility] [address] [place] [address] Patito Wilhelm MD Moderate persistent asthma without complication 12/18/2024 Telephone [facility] [address] [place] [phone] Patito Wilhelm MD Appointment Request 12/11/2024 11:00 AM EDT Office Visit [facility] [address] [place] [phone] Kori Carrillo FNP Lumbosacral radiculopathy (Primary Dx); Chronic bilateral low back pain, unspecified whether sciatica present; Long-term current use of opiate analgesic 12/11/2024 Travel 12/10/2024 Refill [facility] [address] [place] [address] Tosha Phillips RN Chronic back pain, unspecified back location, unspecified back pain laterality 12/10/2024 Telephone [facility] [address] [place] [address] Patito Wilhelm MD Med Refill 12/03/2024 Telephone [facility] [address] [place] [phone] Patito Wilhelm MD Medication Question 12/01/2024 Refill [facility] [address] [place] [phone] Kori Carrillo FNP Type 2 diabetes mellitus with both eyes affected by mild nonproliferative retinopathy without macular edema, with long-term current use of insulin ([facility]) 11/27/2024 5:40 PM EDT Office Visit [facility] [address] [place] [phone] Ashley Rangel MD Burning sensation 11/27/2024 Travel from Last 3 Months Immunizations Immunization Administration Dates Next Due Hep A, Adult 10/29/2024 Influenza injectable quadriv alent IIV4 with preservative 02/24/2018 Influenza injectable quadriv alent preservative free 01/10/2023,01/05/2022,02/06/2021,01/16,02/12/2019,02/06/2017 Influenza, IIV3, injectable 03/08/2023,1 ,12/31/2020,01/16,01/23/2018,01/03/2014,01/28/2011 Influenza, seasonal, injecta ble, preservative free 01/23/2025,03/12/2024 Pfizer Covid-19 Vaccine 12+ 03/21/2023, Pfizer Covid-19 [...] Passive Smoke Exposure: Never Smokeless Tobacco: Never Tobacco Cessation:Counseling Given: Not Answered Alcohol Use Standard Drinks/Week Comments Never 0 [...] Sign Reading Time Taken Comments Blood Pressure 120/60 02/04/2025 3:07 PM EDT Pulse 76 02/04/2025 3:07 PM EDT Temperature 36.4 C (97.5 F) 02/04/2025 3:07 PM EDT Respiratory Rate 14 02/04/2025 3:07 PM EDT Oxygen Saturation 95% 02/04/2025 3:07 PM EDT Inhaled Oxygen Concentration - - Weight 67.9 kg (149 lb 12.8 oz) 02/04/2025 3:07 PM EDT Height 149.9 cm (4' 11 ) 10/29/2024 3:05 PM EDT Body Mass Index 30.26 10/29/2024 3:05 PM EDT Plan of Treatment Upcoming Encounters Date Type Department Care Team (Late st Contact Info) Description 03/12/2025 11:00 AM EST Office Visit [facility] [address] [place] [phone] 05/10/2025 1:00 PM EST Medication Management [facility] [address] [place] [address] Wilber Christie, PharmD [address] [place] [address] Health Maintenance Due Date Last Done Comments CT Colonography 1965 FIT DNA/Cologuard 1965 FIT 1965 FOBT 1965 HIV Screening 1965 Sigmoidoscopy 1965 Pap Smear 1986 HPV/Cotest 1995 Diabetes: Urine Protein Screening 12/10/2023 12/09/2022, 10/20/2021, 01/24/2020 COVID-19 Vaccine ( season) 2024 03/21/2023, 09/25/2021, 04/28/2021 Alcohol/Substance Use Screening 03/27/2025 03/27/2024 SDOH Screening 03/27/2025 03/27/2024 Hepatitis A Vaccines (2 of 2 - Risk 2-dose series) 05/01/2025 10/29/2024 Lipid Panel 07/06/2025 07/06/2024, 11/17, 10/20/2021, Additional history exists Depression Monitoring 08/05/2025 02/04/2025, 025 Diabetes: Hemoglobin A1C 08/05/2025 025, 10/29/2024, 06/11/2024, Additional history exists Eye Exam 10/09/2025 10/09/2024, 09/17, 10/09/2024, Additional history exists Diabetes: Foot Exam 10/29/2025 10/29/2024, 10/29/2024, 10/29/2024, Additional history exists Disability Screening 10/29/2025 10/29/2024 Tobacco Screening 02/04/2026 02/04/2025 Mammogram 03/27/2026 03/27/2024, 12/0 08/2022, 03/19/2022, Additional history exists DTaP/Tdap/Td Vaccines (3 - Td or Tdap) 01/26/2033 01/26/2023, 11/15/2012, 01/14/2005 Colonoscopy 10/18/2033 10/19/2023, 10/19/2023 Colorectal Cancer Screening 10/18/2033 RSV Patients and Patients Aged 60 years or older (1 - 1-dose 75+ series) 2040 Zoster Vaccines Completed 01/17/2020, 05/18/2019 Pneumococcal Vaccine: 50+ Years Completed 10/08/2022, 05/10/2022, 02/13/2002 Influenza Vaccine Completed 01/23/2025, , 03/08/2023, Additional history exists Cervical Cancer Screening Discontinued HIB Vaccines Aged [...] 3:10 PM EDT) No Wilber Christie PharmD Procedures Procedure Name Priority Date/Time Associated Diagnosis Comments POCT GLYCATED HEMOGLOBIN, TOTAL Routine 02/04/2025 3:10 PM EDT Type 2 diabetes mellitus with both eyes affected by mild nonproliferative retinopathy without macular edema, with long-term current use of insulin (HCC) POCT GLUCOSE Routine 02/04/2025 3:09 PM EDT Type 2 diabetes mellitus with both eyes affected by mild nonproliferative retinopathy without macular edema, with long-term current use of insulin ([facility]) POCT VINICIO-14 URINE DRUG SCREEN Routine 12/11/2024 11:29 AM EDT Chronic bilateral low back pain, unspecified whether sciatica present LIPID PANEL, STANDARD Routine 07/06/2024 11:02 AM EDT BI MAMMOGRAM SCREENING TOMOSYNTHESIS BILATERAL Routine 03/27/2024 1:50 PM EST HM COLONOSCOPY Routine 10/19/2023 ALBUMIN, RANDOM URINE W/CREATININE Routine 12/09/2022 1:02 PM EDT Type 2 diabetes mellitus with diabetic polyneuropathy, with long-term current use of insulin ([facility]) from Last 3 Months or Most Recently Relevant to Health Maintenance Results * (ABNORMAL) POCT Hgb A1c (02/04/2025 3:10 PM EDT) Hemoglobin A1C 6.1(A) 4.0 - 5.7 % QC Media Lot # [id number] Lot# Expiration Date [id number] Blood 02/04/2025 3:10 PM EDT us Patito Wilhelm MD POINT OF CARE TEST ENTER/EDIT OR DERABLES Final Result * POCT Glucose (02/04/2025 3:09 PM EDT) Glucose Blood, POC 127 60 - 200 mg/dL QC Media Lot # [id number] Lot# Expiration Date ,523,[id number] Blood Capillary blood specimen / Unknown 02/04/2025 3:09 PM EDT us Patito Wilhelm MD POINT OF CARE TEST ENTER/EDIT OR DERABLES Final Result * (ABNORMAL) POCT VINICIO-14 Urine Drug Screen (12/11/2024 11:29 AM EDT) THC Negative Negative Cocaine Screen, Urine Negative [...] procedure / Unknown 12/11/2024 11:29 AM EDT Narrative Tosha Phillips RN - 12/11/2024 11:29 AM EDT .UTOX cup Lot#[id number] Exp. 01/22/26 Internal Pass Control Kori Carrillo INDUSTRY CONSULTANT POINT OF CARE TEST ENTER/EDIT ORDERABLES Final Result * (ABNORMAL) Lipid Panel, Standard (07/06/2024 11:02 AM EDT) Triglycerides 143 <150 mg/dL [facility] Comment:Desirable Triglyceri de: less than 150 mg/dLBorderline High Triglyceride 150-199 mg/dLHigh Triglyceride: 200-499 mg/dLVery High Triglyceride: greater than or equal to 5OO mg/dL Cholesterol 171 <200 mg/dL [facility] Comment:Desirable Cholestero l: less than 200 mg/dLBorderline High Cholesterol: 200-239 mg/dLHigh Cholesterol: greater than 239 mg/dL LDL Cholesterol Calculated 100(H) <100 mg/dL [facility] Comment:Desirable LDL: less than 100 mg/dLNear Optimal/Above Optimal LDL: 110- 129 mg/dLBorderline High LDL: 130-159 mg/dLHigh LDL: 160-189 mg/dLVery High LDL: greater than or equal to 190 mg/dL HDL Cholesterol 43 >40 mg/dL [facility] Comment:Desirable HDL: great er than 40 mg/dL Note: This HDL assay may give artificially low results in patients with liver disease. 07/06/2024 11:0 2 AM EDT 07/06/2024 1:13 PM EDT us Patito Wilhelm MD LAB BLOOD ORDERABLES Final Resul t [facility] [address] [place] [address] [phone] * BI Mammogram Screening Tomosynthesis Bilateral (03/27/2024 1:50 PM EST) Anatomical Region Laterality Modality Breast Bilateral Mammography 03/27/2024 1:50 PM EST Narrative 04/02/2024 3:31 PM EST [facility] [place] [address] Mammography Report Signed Patient: Ameena Tejada MR#: [id number] 33 : 1965 Acct:[id number] Age/Sex: 59 / F ADM Date: 03/27/24 Loc: HO.MAMMO Attending Dr: Patito Wilhelm MD Ordering Physician: Patito Wilhelm MD Results: 2Benign F indings Date of Service: 03/27/24 Follow Up: 1 Year From Orig inal Mammogram Procedure(s): MM tomosynthesis screening BI Accession Number(s): [id number] cc: Patito Wilhelm MD EXAMINATION: MM SCREENING DIGITAL BREAST TOMOSYNTHESIS, [...] by: Mare Cardona DO 04/02/2024 03:[address] [facility] Dictated By: Mare Cardona DO Signed By: <Electronically signed by Mare Cardona DO in OV> 04/02/24 1528 DD/ 1350 TD/TT: 03/27/24 1405 Field Service Supervisor: Procedure Note Donotuseinterpreter, Image - 04/02/[address] [place] [address] [place] [address] Mammography Report Signed Patient: Neil TejadaR#: [id number] 33 : 1965Acct:[id number] Age/Sex: 59 / FADM Date: 03/27/24 Loc: HO.MAMMO Attending Dr: Patito Wilhelm MD Ordering Physician: Patito Wilhelm MDResults: 2Benign F indings Date of Service: 03/27/24Follow Up: 1 Year From [facility] ina Mammogram Procedure(s): MM tomosynthesis screening BI Accession Number(s): [id number] cc: Patito Wilhelm MD EXAMINATION: MM SCREENING DIGITAL BREAST TOMOSYNTHESIS, [...] by: Mare Cardona DO 04/02/2024 03:[address] [facility] Dictated By: Mare Cardona DO Signed By: <Electronically signed by Mare Cardona DO in OV> 04/02/24 1528 DD/ 1350 TD/TT: 03/27/24 1405 Field Service Supervisor: Patito Wilhelm MD IM BI PROCEDURES Edited Result - Final * Hm Colonoscopy (10/19/2023) Colonoscopy Normal Normal Narrative Christine Ramirez - 10/19/2023 Recommended 10 year follow up . see external hospital admission note on 10/19/2023 Historical Provider HEALTH MAINTENANCE Final Result * Albumin, Random Urine W/Creatinine (12/09/2022 1:02 PM EDT) Creatinine, Urine 170.12 mg/dL [facility] Microalbumin Urine 15.0 mg/L [facility] Microalbum Creatinine Ratio Ur 8.8 <30 ug/mg cr [facility] Comment:Albumin/Creatinine R atio Reference Ranges: Normal: < 30 ug/mg creatinine Microalbuminuria: 30 - 300 ug/mg creatinineClinical Albuminuria: > 300 ug/mg creatinine Urine 12/09/2022 1:02 PM EDT 12/09/2022 3:56 PM EDT us Patito Wilhelm MD LAB URINE ORDERABLES Final Resul t [facility] [address] [place] [phone] from Last 3 Months or Most Recently Relevant to Health Maintenance Insurance [employer] < 65 JOSE CALVERT [id number] Care Teams Roadside Mechanic Relationship Specialty Start Date End Date Patito Wilhelm MD [address] [place] [address] PCP - General Family Medicine 11/13/18 Wilber Christie, PharmD [address] [place] [phone] Pharmacist Internal Medicine 01/28/23
--- OUTSIDE RECORDS SUMMARY | 2025-02-16 10:00 | XMS_ITS | Encounter Summary ---
Author Organization [employer] Address [address] [facility] 7t [place] [address] Care Team Providers Care Molder Wax Ball Name Role Phone Patito Wilhelm MD Primary Care Provider [phone] Wilber Christie PharmD Unavailable [phone] Reason for Visit * Reason Onset Date Comments triage 06/22/2022 Encounter Details Date Type Department Care Team ([facility] st Contact Info) Description 06/22/2022 Telephone [facility] [address] [place], [place] [phone] Patito Wilhelm MD [address] [place], [place] [phone] triage Social History Tobacco Use Types Packs/Day [...] You become worse. * Telephone Encounter - Jonh Jaime - 06/22/2022 3:54 PM EST Symptom: Medication Question Outcome: Schedule an urgent appointment (within 4 hours) or talk to a nurse or provider soon Reason: New prescription question The caller accepted this outcome. documented in this encounter Plan of Treatment Upcoming Encounters Date Type Department Care Team (Late st Contact Info) Description 03/12/2025 11:00 AM EST Office Visit [facility] [address] [place] [address] [phone] 05/10/2025 1:00 PM EST Medication Management [facility] [address] [place] [address] [phone] Wilber Christie, PharmD [address] [place] [address] documented as of this encounter Visit Diagnoses Not on filedocumented in this encounter Care Teams Molder Wax Ball Relationship Specialty Start Date End Date Patito Wilhelm MD [address] [place] [address] PCP - General Family Medicine 11/13/18 Wilber Christie, Kaia [address] [place] [address] Pharmacist Internal Medicine 01/28/23 documented as of this encounter
--- OUTSIDE RECORDS SUMMARY | 2025-02-16 10:00 | XMS_ITS | Encounter Summary ---
Author Organization [employer] Address [address] [facility] 7t [place] [address] Care Team Providers Care Jet Man Name Role Phone Patito Wilhelm MD Primary Care Provider Wilber Christie PharmD Unavailable [phone] Reason for Visit * Reason Onset Date Comments Appointment Request 10/19/2023 Encounter Details Date Type Department Care Team ([facility] st Contact Info) Description 10/19/2023 Telephone [facility] [address] [place], [place] [phone] Patito Wilhelm MD [address] [place], [place] [phone] Appointment Request Social History Tobacco Use Types [...] week with PCP. Please contact pt at [phone] documented in this encounter Plan of Treatment Upcoming Encounters Date Type Department Care Team (Late st Contact Info) Description 03/12/2025 11:00 AM EST Office Visit [facility] [address] [place] [phone] 05/10/2025 1:00 PM EST Medication Management [facility] [address] [place] [phone] Wilber Christie PharmD [address] [place] [phone] documented as of this encounter Goals Goal [...] documented as of this encounter Care Teams Jet Man Relationship Specialty Start Date End Date Sakurai, Patito, MD [address] [place], [place] [phone] PCP - General Family Medicine 11/13/18 Wilber Christie, PennyD [address] [place] [address] Pharmacist Internal Medicine 01/28/23 documented as of this encounter
--- OUTSIDE RECORDS SUMMARY | 2025-02-16 10:00 | XMS_ITS | Encounter Summary ---
Author Organization [employer] Address [address] [facility] 7t [place] [address] Care Team Providers Care Facility Maintenance Worker Name Role Phone Patito Wilhelm MD Primary Care Provider [phone] Wilber Christie PharmD Unavailable [phone] Reason for Visit * Reason Onset Date Comments Appointment Request 10/24/2023 Encounter Details Date Type Department Care Team ([facility] st Contact Info) Description 10/24/2023 Telephone [facility] [address] [place], [place] [phone] Patito Wilhelm MD [address] [place], [place] [phone] Appointment Request Social History Tobacco Use Types [...] Description 03/12/2025 11:00 AM EST Office Visit [address] [address] 05/10/2025 1:00 PM EST Medication Management [address] [address] Wilber Christie PharmD [address] [place] [phone] documented as of this encounter Goals Goal [...] documented as of this encounter Care Teams Facility Maintenance Worker Relationship Specialty Start Date End Date Patito Wilhelm MD [address] [place] [phone] PCP - General Family Medicine 11/13/18 Wilber Christie, PennyD [address] [place] [phone] Pharmacist Internal Medicine 01/28/23 documented as of this encounter
--- OUTSIDE RECORDS SUMMARY | 2025-02-16 10:01 | XMS_ITS | Encounter Summary ---
Author Organization [employer] Address [address] [place] [address] 7t [place] [address] Care Team Providers Care Child Center Assistant Name Role Phone Patito Wilhelm MD Primary Care Provider [phone] Wilber Christie PharmD Unavailable [phone] Reason for Visit * Reason Comments Med Refill Encounter Details Date Type Department Care Team (Late Contact Info) Description 08/11/2022 Refill [facility] [address] [place] [address] Racquel Fu MD [address] [place] [address] Social History Tobacco Use Types Packs/Day Years [...] Description 03/12/2025 11:00 AM EST Office Visit [facility] [address] [place] [phone] 05/10/2025 1:00 PM EST Medication Management [address] [address] Wilber Christie, PharmD [address] [place] [phone] documented as of this encounter Visit Diagnoses Not on filedocumented in this encounter Additional Health Concerns Assessment Noted Time PHQ-9 Depression Total Score: 6 07/27/19 1:10 PM EDT documented as of this encounter Care Teams Child Center Assistant Relationship Specialty Start Date End Date Patito Wilhelm MD [address] [place] [phone] PCP - General Family Medicine 11/13/18 Wilber Christie, Kaia [address] [place] [phone] Pharmacist Internal Medicine 01/28/23 documented as of this encounter
--- OUTSIDE RECORDS SUMMARY | 2025-02-16 10:01 | XMS_ITS | Encounter Summary ---
Author Organization [employer] Address [address] [facility] 7t [place] [address] Care Team Providers Care Pan Devulcanizer Name Role Phone Patito Wilhelm MD Primary Care Provider [phone] Wilber Christie PharmD Unavailable [phone] Reason for Visit * Reason Onset Date Comments Med Refill 09/14/2024 Encounter Details Date Type Department Care Team (Late st Contact Info) Description 09/14/[address] [facility] [address] [place] [address] Patito Wilhelm MD [address] [place] [address] Med Refill Social History Tobacco Use Types [...] 5-325 MG tablet To be sent to: [facility]/pharmacy #[id number] [place] [address] - [address] [place] [address] documented in this encounter Plan of Treatment Upcoming Encounters Date Type Department Care Team ([facility] st Contact Info) Description 03/12/2025 11:00 AM EST Office Visit [facility] [address] [place] [phone] 05/10/2025 1:00 PM EST Medication Management [facility] [address] [place] [phone] Wilber Christie, PharmD [address] [place] [address] documented as of this encounter Goals Goal Patient Goal Type Associated Problems Recent Progress Patient-Stated? Author Blood Pressure < 140/90 Blood Pressure 120/60(10/20/ 2025 3:07 PM EDT) No Wilber Christie PharmD Hemoglobin A1c < 7 Result Component 6.1( 5 3:10 PM EDT) No Wilber Christie PharmD documented as of this encounter Visit Diagnoses Not on filedocumented in this encounter Additional Health Concerns Assessment Noted Time PHQ-9 Depression Total Score: 11 024 1:39 PM EDT documented as of this encounter Care Teams Pan Devulcanizer Relationship Specialty Start Date End Date Patito Wilhelm MD [address] [place] [address] PCP - General Family Medicine 11/13/18 Wilber Christie PharmD [address] [place] [phone] Pharmacist Internal Medicine 01/28/23 documented as of this encounter
--- OUTSIDE RECORDS SUMMARY | 2025-02-16 10:01 | XMS_ITS | Encounter Summary ---
Author Organization [employer] Address [address] [facility] 7t [place] [address] Care Team Providers Care Music Journalist Name Role Phone Patito Wilhelm MD Primary Care Provider [phone] Wilber Christie PharmD Unavailable [phone] Reason for Visit * Reason Onset Date Comments Med Refill 12/02/2023 Encounter Details Date Type Department Care Team (Late st Contact Info) Description 12/02/2023 Refill [facility] MEDICINE [address] [place] [address] Patito Wilhelm MD [address] [place] [address] Chronic bilateral low back pain, unspecified whether [...] 5-325 MG tablet To be sent to: [facility]/pharmacy #LYFE [employer] [place], [place] [address] [employer] [place] Prescription last filled on 11/04/23 0 Refills Left ENEDINA with PCP: 08/30/23 * Telephone Encounter - Rodrigue Lawton - 12/02/2023 10:30 AM EDT TC from pt requesting medication refill. Medications needing refill : oxyCODONE-acetaminophen (Percocet) 5-325 MG tablet To be sent to: [facility]/pharmacy #[employer] [facility] [employer] [place] documented in this encounter Plan of Treatment Upcoming Encounters Date Type Department Care Team (Late st Contact Info) Description 03/12/2025 11:00 AM EST Office Visit [address] [address] 05/10/2025 1:00 PM EST Medication Management [address] [address] Wilber Christie PharmD [address] [place] [address] documented as of this encounter Goals Goal [...] documented as of this encounter Care Teams Music Journalist Relationship Specialty Start Date End Date Patito Wilhelm MD [address] [place] [phone] PCP - General Family Medicine 11/13/18 Wilber Christie PharmD [address] [place] [address] Pharmacist Internal Medicine 01/28/23 documented as of this encounter
== END 2025-02-16 09:58 | disposition home or self-care (01) ==
LOC: HO.CT 09:57
PROVIDERS: PCP Family Medicine; Visit Provider Surgery
DX: R10.9 Unspecified abdominal pain (principal)
CPT/HCPCS: 74176

== ENCOUNTER → 2025-02-16 09:58 | Outpatient (BNV) | payer OTHER, SELFPAY | PROVIDERS: PCP Family Medicine; Visit Provider Radiology Diagnostic Ultrasound | DX: R10.9 Unspecified abdominal pain (principal) | CPT/HCPCS: 74176 ==

== ENCOUNTER 2025-02-27 10:54 | Outpatient (AMB) | payer OTHER, SELFPAY ==
[2025-02-27 10:58] VITALS: BMI 30.1
--- NOTE | 2025-02-27 10:58 | A.OFFVIS_ITS ---
Vital Signs 02/27/25 10:58 Height 5 ft Weight 153 lb 15.992 oz BMI 30.1 Intake Visit Reasons: Ct-Scan follow-up Intake Note: Patient presents for follow-up Ct-Scan. Pt c/o; reports no complaints at this time. Communications Editor Required: No Accompanied by: Self / Same As Patient Allergies rosiglitazone (Avandia) Allergy (Severe, Verified 02/27/25 11:03) rash/hepatitis C cyclobenzaprine (From FLEXERIL) Allergy (Intermediate, Verified 02/27/25 11:03) HIVES latex (LATEX) Allergy (Intermediate, Verified 02/27/25 11:03) RASH azithromycin (From Zithromax) Allergy (Mild, Verified 02/27/25 11:03) SWELLING glipizide (From Glucotrol) Allergy (Mild, Verified 02/27/25 11:03) SWELLING levofloxacin (From Levaquin) Allergy (Mild, Verified 02/27/25 11:03) leg swelling aspirin (Aspirin) Allergy (Unknown, Verified 02/27/25 11:03) reaction unknown-was years ago Flexeril Allergy (Severe, Uncoded 02/27/25 11:03) Rash Medication List - Last Reconciled 02/27/25 by Marcell Saez MD acetaminophen 500 mg PO Q6H PRN albuterol sulfate 90 mcg/actuation 2 puffs inhalation Q4-6H PRN azelastine 1 spray intranasal DAILY PRN budesonide-formoterol 160-4.5 mcg/actuation (Symbicort) 2 puffs inhalation BID celecoxib (Celebrex) 200 mg PO Q12H PRN cholecalciferol (vitamin D3) 50 mcg PO DAILY dicyclomine 10 - 20 mg PO Q6H PRN insulin asp prt-insulin aspart 100 unit/mL (70-30) (Novolog Mix 70-30FlexPen U- 100) 25 units subcut BID meclizine 25 mg PO TID PRN methylprednisolone (Medrol (Braeden)) PO PER PKG DIR metoprolol succinate ER 75 mg PO BEDTIME montelukast 10 mg PO QPM naloxone 4 mg/actuation 1 spray intranasal DAILY nitroglycerin 0.4 mg sublingual Q5M PRN omeprazole 20 mg PO DAILY pregabalin 75 mg PO BID semaglutide (Ozempic) 2 mg subcut QWEEK valsartan-hydrochlorothiazide 320-25 mg 1 tab PO DAILY vitamin B complex (Vitamins B Complex tablet) 1 tab PO DAILY HPI HPI Ct-Scan follow-up: Details: [age] year old female referred for a a question of a ventral hernia. She has had what she describes the discomfort and pain in the right side for abdomen. She feels that there is a ?lump? on the right lower quadrant off of the midline. She denies GI complaints. She does have multiple medical problems including diabetes with neuropathy, and chronic back pain. Has had a long history of difficulty with ambulating and uses a cane because of these problems. She has a history of a in the past. I had sent her for a CAT scan and she is here to discuss the findings. [facility] Medical History (Updated 02/27/25 @ 11:20 by Marcell Saez MD) Incisional hernia Right sided abdominal pain NIKI (obstructive sleep apnea) Bronchitis Lumbar radiculopathy Obesity Macromastia Meralgia paraesthetica Insomnia Palpitations Arthritis Back pain Diabetes History of abdominal hernia GERD (gastroesophageal reflux disease) Irritable bowel syndrome Interstitial cystitis Jaundice Hepatitis C Depression Neuropathy Numbness History of headache Vertigo Asthma Elevated cholesterol HTN (hypertension) Subcutaneous mass of left foot Calcaneal spur, unspecified foot Hernia Surgical History Hx of arthroscopy of shoulder Hx of hysterectomy Hx of elbow surgery Hx of removal of cyst Hx of foot surgery Hx of section History of bladder surgery H/O colonoscopy History of cholecystectomy History of carpal tunnel surgery of right wrist History of carpal tunnel surgery of left wrist H/O tubal ligation History of repair of rotator cuff History of liver biopsy Family History Father Gastric cancer Mother Coronary disease Social History Are you a primary primary care provider to a significant other at home: No Do you presently have visiting nurse or other home services: No Alcohol intake: never Patient Tobacco Use Status: Never used Tobacco Current occupational status: disabled Current occupation: rt handed Review of Systems Const Denies chills and Denies fever(s) Card Denies chest pain, Denies dyspnea and Denies dyspnea on exertion Resp Denies cough, Denies dyspnea and Denies dyspnea on exertion GI Denies hematochezia and Denies change in bowel habits Denies hematuria Musc Denies back pain and Denies limited range of motion Neuro Denies focal weakness and Denies convulsions Psych Denies depression and Denies mood swings Physical Exam Vital Signs: BMI result Body Mass Index 30.1 Const General: comfortable and no acute distress Orientation/consciousness: patient oriented x3 Neck Neck: Yes no lymphadenopathy Resp Auscultation: clear to auscultation bilaterally Cardio Rhythm: regular rhythm GI Other: Palpable protuberant in the lower midline a little off to the right with Valsalva, some tenderness as well on this area Palpation (GI): Soft to palpation, Tenderness to palpation present (GI) and no guarding Neuro General: patient oriented x3 Assessment & Plan Assessment & Plan (1) Incisional hernia: Code(s): K43.2 - Incisional hernia without obstruction or gangrene Category: Medical Plan: I have reviewed her CAT scan and this shows a fascial defect, with a fat containing hernia in the lower midline. This fascial defect seems to measure about 2.8 cm. This has a little bit to the right of the midline and this has like to be what she feels as a ?lump?. She does have a history of . I therefore explained to her the option of proceeding with repair of this incisional hernia with possible mesh. I explained the technique of this procedure. I reviewed the risks including but not limited to bleeding, infections, bowel injury, recurrence, postop pain, as well as the benefits and alternatives. I explained to her what to expect postoperatively. She wants to proceed She is a diabetic but says has her hemoglobin A1c was 6.1 the last time this was checked. She does have a pannus on the areas so she understands the benefits of weight loss as well. Coding Level of Care Code Est Pt Level 4 (39494) Diagnoses Incisional hernia K43.2
--- OUTSIDE RECORDS SUMMARY | 2025-02-27 13:18 | XMS_ITS | Data Portability ---
Author Organization [facility] [employer] [facility] [place] [employer] [facility] Address [address] [place] [phone] Assessment No assessment recorded. Plan of Treatment [...] Not available Not available Not available 02/14/2024 [id number] RxNorm Not Available [facility] - production 4 03:41:49 8078 latex environme nt,medica tion Not available Not available Not available 02/14/2024 [id number] RxNorm Not Available [facility] - production 4 03:41:49 8079 levofloxa leela medicatio n Not available Not available Not available 02/14/2024 [id number] RxNorm Not Available [facility] - production 4 [...] ICD10 Code Diagnosis IMO Codes Diagnosis Note [id number] Ravi Castillo MD Main - [facility] [address] [place] [address] 12/31/2022 17:19:52 01/03/2023 11:18:56 Essential hypertension [id number] I10 This 57-year-ol d female with hypertensi on treated with metoprolol XL and valsartan called [facility] because her BP has been elevated today. Earlier today she had a knee injection. Her EKG showed no acute findings. Her BP was trending down when the disability examiner arrived. I recommende d that she monitor [...] [employer] Member ID Guarantor Name 06/21/2023 1 [facility] - DOS ON OR AFTER 2022 - DUAL ELIGIBLE - LONGTERM OPTIONS AND ONE CARE (MEDICARE REPLACEMENT/ADV ANTAGE - HMO) Ameena Tejada [id number] Ameena Tejada Notes Date Note Type Note Provider Name and Address Organization Details Recorded Time 12/31/2022 text/html ROS as noted in the HPI HPI: Patient with trending elevated BP's on last visit at [facility]. Though may be due to pain. Pain [...] to process visit Ravi Castillo MD [address] [facility],[address] [facility], [place], [address], [employer] 12/31/2022 17:26:53 OBGyn Episode No OBEpisode recorded.
--- OUTSIDE RECORDS SUMMARY | 2025-02-27 13:18 | XMS_ITS | Clinical Summary ---
Author Organization [facility]. Address [address] [facility] [address] [place] [address] Phone Care Team Providers Care Agricultural Engineering Technician Name Role Phone Patito Wilhelm MD Primary Care Provider [phone] Allergies Active Allergy Reactions Criticality Noted Date [...] 1 capsule in the evening. 3 Active oxyCODONE-aceta minophen (PERCOCET) 5-325 MG per tablet TAKE 1 [...] TIMES A DAY 2 Active insulin aspart protamine-insul in aspart (NovoLOG MIX 70/30 FLEXPEN) (70-30) 100 [...] DISCOMFORT FOR 30 DAYS 90 2 Active Cholecalciferol 50 MCG (2000 UT) capsule Take 1 tablet by mouth [...] 1 (one) time each day 4 Active budesonide-form oterol (SYMBICORT) 160-4.5 MCG/ACT inhaler Inhale 2 puffs in the morning and 2 puffs before bedtime. Rinse mouth with water after use to reduce aftertaste and incidence of candidiasis. Do not swallow.. Active celecoxib (CeleBREX) 200 MG capsule Take 200 mg by mouth in the morning and 200 mg in the evening. Active valsartan-hydro CHLOROthiazide (DIOVAN-HCT) 320-25 MG per tablet TAKE 1 TABLET BY MOUTH EVERY DAY 90 tablet 3 5 Active Active Problems Problem Noted Date Diagnosed [...] & Plan: - recommended to check with paint technician if she can receive steroid injection Chronic primary bladder pain syndrome 08/14/2012 05/03/2023 Overview (05/03/2023): Last Assessment & Plan: -Followed by urologist, [facility], last seen on 02/22/22 -Prescribed tamsulosin Chronic low back pain 08/14/2012 05/03/2023 Overview (05/03/2023): Last Assessment & Plan: -Seen by paint technician on 12/16/22, yet mainly for left knee [...] (05/03/2023): Last Assessment & Plan: -Followed by [facility] pulmonology, last seen on 11/30/21 -Questionable adherence to medications according to refill history -Reviewed her medications today and discussed about the importance of adherence -Continue Dulera and Spiriva as maintenance -Continue albuterol HFA prn as rescue -Consider referring to MTM -Urged to schedule appt with quill picking machine operator; pt verbalized understanding Type 2 diabetes mellitus [...] active Hep C. -Check the satus of Student[employer] Rachael -Last eye exam: 06/18/22, no retinopathy [...] Last Assessment & Plan: - Following with [facility] Sheriff'S Officer, last seen on 12/16/22, started on Euflexxa injection - XR on 12/16/22 showed : mild Osteoarthritis - Currently receiving intraarticular Euflexxa (hyaluronate derivative) Injection - Continue current Tx plan per paint technician Viral hepatitis C 09/20/2011 05/03/2023 Encounters Date Type Department Care Team Description 02/06/2025 Orders Only [facility] [address] [facility] [address] [place] [address] Jareth Rowan MD Essential (primary) hypertension 01/26/2025 Refill [facility] [address] [facility] [address] [place] [address] Jareth Rowan MD from Last 3 Months [...] Office Visit [facility] [address] [place] [address] Jareth Rowan MD [address] [facility] [address] [place] [address] Health Maintenance Due Date Last Done Comments [...] 01/23/2025, , 01/10/2023, Additional history exists [place] [address] ([id number]) [place] [address] ([id number]) Care Teams Agricultural Engineering Technician Relationship Specialty Start Date End Date Patito Wilhelm MD [address] [place] [phone] PCP - General Family Medicine 02/07/24
== END 2025-02-27 11:22 | disposition home or self-care (01) ==
LOC: HO.HGS 10:55
PROVIDERS: PCP Family Medicine; Visit Provider Surgery
DX: K43.2 Incisional hernia without obstruction or gangrene (principal)
CPT/HCPCS: 99214

== ENCOUNTER → 2025-02-27 10:54 | Outpatient (BNVA) | payer OTHER, SELFPAY | PROVIDERS: PCP Family Medicine; Visit Provider Surgery | DX: K43.2 Incisional hernia without obstruction or gangrene (principal) | CPT/HCPCS: 99212 ==

== ENCOUNTER 2025-03-05 11:24 | Day surgery (SDC) | payer OTHER, SELFPAY ==
--- OUTSIDE RECORDS SUMMARY | 2023-10-19 03:30 | XMS_ITS ---
Author Organization [facility] Address [address] [place] [address] Care Team Providers Care Freight Tallier Name Role Phone Choco GANDHI, Patito Primary Care Provider Leonardo Harding Unavailable [phone] REASON FOR VISIT screening Problems Problem Type SNOMED Code ICD Code Onset Dates Problem Status W/U Status Risk Notes Problem Diverticular disease of colon (073365873) Diverticulosis of large intestine without perforation or abscess without bleeding (K57.30) Active confirmed Encounters Encounter Location Date Provider Diagnosis [facility] Outpatient [address] [place], [place] [phone] 10/19/2023 Leonardo Stratton Encounter for scre ening [...] hemorrhoids (ICD-10 - K64.8) Plan Of Treatment No Information Progress Notes * KANDY NASSARMERLENEB: 5 (59 yo F)Acc No.[id number]:10/19/2023 COLON WITH MAC Patient: JAMEL RICHARD Provider: Layton Stratton MD :1965 A ge:58 Y S ex:Female Date:10/19/2023 Address:[address] [place] [address] [address] [id number] Pcp:Patito Wilhelm MD Subjective: * Chief Complaints: * 1 . Screening. * Medical History: Objective: * Vitals: Assessment: * Assessment: 1. E ncounter for screening colonoscopy - Z12.11 (Primary) 2 . D iverticulosis of large intestine without perforation or abscess without bleeding - K57.30 3 .?Other hemorrhoids - K64.8 Plan: * Treatment: * Procedure Codes: 4 5378 DIAGNOSTIC COLONOSCOPY * * The named appointment provid er may or may not be the originator of this progress note, and it is not deemed complete until electronically signed by the appointment provider. Sign off status: Pending * Provider: Layton Stratton MD Date: 0 10/19/2023 Generated for Nory funk/Eulalia/Lanitting on: 05/01/2024 07:45 AM EST
--- OUTSIDE RECORDS SUMMARY | 2024-07-19 04:20 | XMS_ITS ---
Author Organization [facility] Address [address] [place] [address] Care Team Providers Care Multi Media Specialist Name Role Phone Choco GANDHI, Patito Primary Care Provider Leonardo Harding [phone] REASON FOR VISIT Patient presents today for hepatitis c Encounters Encounter Location Date Provider Diagnosis [facility] [address] [place] [address] 07/19/2024 Leonardo Stratton Plan Of Treatment No Information Progress Notes * ANDERSON NASSARB: 5 (59 yo F)Acc No.[id number]:07/19/2024 Progress Notes Patient: JAMEL RICHARD Provider: Layton Stratton MD :1965 A ge:59 Y S ex:Female Date:07/19/2024 Address:[address] [place] [address] [address] [place] [facility] Pcp:Patito Wilhelm MD Subjective: * Chief Complaints: * 1 . Patient presents today for hepatitis c. * Medical History: Objective: * Vitals: Assessment: Plan: * Treatment: * * The named appointment provid er may or may not be the originator of this progress note, and it is not deemed complete until electronically signed by the appointment provider. Sign off status: Pending * Provider: Layton Stratton MD Date: 0 07/19/2024 Generated for Nory funk/Eulalia/eTransmitting on: 05/01/2024 07:46 AM EST
--- OUTSIDE RECORDS SUMMARY | 2025-03-01 07:45 | XMS_ITS | Encounter Summary ---
Author Organization [employer] Address [address] [facility] 7t [place] [address] Care Team Providers Care Packing And Shipping Clerk Name Role Phone Patito Wilhelm MD Primary Care Provider [phone] Wilber Christie PharmD Unavailable [phone] Reason for Visit * Reason Onset Date Comments Nurse Triage 05/25/2024 Encounter Details Date Type Department Care Team ([facility] st Contact Info) Description 05/25/2024 Telephone [facility] MEDICINE [address] [place], [place] [phone] Patito Wilhelm MD [address] [place], [place] [phone] Nurse Triage Social History Tobacco Use Types [...] send this note to Walk in front sight attacher and Nurses as Pt. May be coming [...] Call Ahead Before Visiting Your Doctor (or NAVAL SCIENCE TEACHER/PA) * Telephone Encounter - Jess Bunn - 05/25/2024 12:53 PM EST Symptoms: Low Blood Pressure - Caller Reports, Cough, Headache, Nausea But No Vomiting Outcome: Talk to a nurse or provider within 15 minutes Reason: Trouble walking The caller accepted this outcome. [phone] documented in this encounter Plan of Treatment Upcoming Encounters Date Type Department Care Team (Late st Contact Info) Description 03/12/2025 11:00 AM EST Office Visit [address] [address] 05/10/2025 1:00 PM EST Medication Management [address] [address] Wilber Christie PharmD [address] [place] [phone] documented as of this encounter Goals Goal [...] documented as of this encounter Care Teams Packing And Shipping Clerk Relationship Specialty Start Date End Date Patito Wilhelm MD [address] [place] [address] PCP - General Family Medicine 11/13/18 Wilber Christei, PharmD [address] [place] [address] Pharmacist Internal Medicine 01/28/23 documented as of this encounter
--- OUTSIDE RECORDS SUMMARY | 2025-03-01 07:45 | XMS_ITS | Encounter Summary ---
Author Organization [employer] Address [address] [place] [address] [facility] [place] [address] Care Team Providers Care Hazardous Material Specialist Name Role Phone Patito Wilhelm MD Primary Care Provider [phone] Wilber Christie PharmD Unavailable [phone] Reason for Referral * Consultation (Routine) - Authorized Specialty Diagnoses / Procedures Referred By Contac t Referred To Contact Pharmacy Diagnoses Type 2 diabetes mellitus with both eyes affected by mild nonproliferative retinopathy without macular edema, with long-term current use of insulin (HCC) Primary hypertension Moderate persistent asthma without complication Patiot Wilhelm MD [address] [place] [address] Phone: tel: fax: Referral ID Status Reason Start Date Expiration Date Visits Requested Visits Authorized [id number] Authorized Consult and Treat 01/24/2025 01/24/2026 6 6 Encounter Details Date Type Department Care Team (Late st Contact Info) Description 01/24/2025 Orders Only [facility] [address] [place] [address] [phone] Patito Wilhelm MD [address] [place] [address] [phone] Type 2 diabetes mellitus with both eyes [...] Upcoming Encounters Date Type Department Care Team ([facility] st Contact Info) Description 03/12/2025 11:00 AM EST Office Visit [facility] [address] [place] [address] 05/10/2025 1:00 PM EST Medication Management [facility] [address] [place] [address] Wilber Christie, PharmD [address] [place] [address] Scheduled Referrals Name Type Priority Associated Diagnoses [...] Procedure Name Priority Date/Time Associated Diagnosis Comments CT ABDOMEN PELVIS WO CONTRAST Routine 02/16/2025 10:03 AM EDT documented in this encounter Results * CT Abdomen Pelvis w/o Contrast (02/16/2025 10:03 AM EDT) Anatomical Region Laterality Modality Body, Pelvis, Abdomen Computed T omography 02/16/2025 10:0 3 AM EDT Narrative 02/18/2025 10:[address] [address] [address] Scan Report Signed Patient: Ameena Tejada MR#: [id number] 33 : 1965 Acct:[id number] Age/Sex: 59 / F ADM Date: 02/16/25 Loc: HO.CT Attending Dr: Marcell Saez MD Ordering Physician: Marcell Saez MD Date of Service: 02/16/25 Procedure(s): CT abdomen pelvis wo IV con Accession Number(s): [id number] cc: Marcell Saez MD; Patito Wilhelm MD Report Number: [id number]: Total DLP = 458.00 mGy-cm Reason for Exam: R10.9 - Unspecified abdominal pain EXAMINATION: CT ABDOMEN AND PELVIS WITHOUT CONTRAST CLINICAL INFORMATION: Rule out hernia COMPARISON: CT 08/30/2024 TECHNIQUE: Multidetector volumetric imaging was performed from the superior aspect of the liver through the pubic symphysis. Sagittal and coronal reformatted images were obtained on the technologist's workstation. This CT examination was performed using dose optimization techniques as appropriate, variously including the following: *Automated exposure control *Adjustment of mA and/or kV according to patient size (this includes techniques or standardized protocols for targeted exams where dose is matched to indication/reason for exam; i.e. extremities or head) *Use of iterative reconstruction technique FINDINGS: LUNG BASES: Mild left lower lobe scarring. No pericardial or pleural effusion. LIVER, GALLBLADDER, AND BILIARY TREE: No focal liver lesion. No intrahepatic biliary duct dilatation. Status postcholecystectomy. Mild extrahepatic biliary duct prominence, could be compensatory, correlate with bilirubin. PANCREAS: No inflammatory changes SPLEEN: Unremarkable. ADRENAL GLANDS: Unremarkable. KIDNEYS AND URETERS: No calculi. No hydronephrosis. No suspicious lesions. BLADDER: Nondistended limiting evaluation GASTROINTESTINAL TRACT: Stomach is nondistended. No abnormal dilated small or large bowel loops. Small-moderate volume colonic stool. Colonic diverticulosis without evidence of diverticulitis. Appendix appears unremarkable. Peritoneum: No free fluid. No mesenteric edema identified. No free air. ABDOMINAL WALL: Redemonstrated lower abdomen midline fat-containing ventral hernia, with a neck of 2 x 2.2 cm. LYMPH NODES: No pathologically enlarged lymph nodes seen. VASCULAR: Normal caliber aorta. PELVIC VISCERA: Status post hysterectomy. Redemonstrated question of slightly low-lying urinary bladder and rectum. OSSEOUS STRUCTURES: No acute findings CT/CT abdomen pelvis wo IV con IMPRESSION: * Redemonstrated lower abdomen midline fat-containing ventral hernia, with the neck of 2 x 2.2 cm. * Status postcholecystectomy. * No acute abdominal findings identified. * Hysterectomy. Redemonstrated is slightly low lying urinary bladder and rectum, clinically correlate for mild pelvic floor dysfunction. Fleischner guidelines were followed. Electronically signed by: Reyes Rueda MD 02/18/2025 10:09 AM EST Dictated By: Reyes Rueda MD Signed By: <Electronically signed by Reyes Rueda MD in OV> 02/18/25 1009 DD/ 1003 TD/TT: 02/16/25 1018 Gas Station Cashier: ALEXANDRA Procedure Note Donotuseinterpreter, Image - 02/18/[address] [address] [address] Scan Report Signed Patient: King Tejada#: [id number] 33 : 1965Acct:[id number] Age/Sex: 59 / FADM Date: 02/16/25 Loc: HO.CT Attending Dr: Marcell Saez MD Ordering Physician: Marcell Saez MD Date of Service: 02/16/25 Procedure(s): CT abdomen pelvis wo IV con Accession Number(s): [id number] cc: Marcell Saez MD; Patito Wilhelm MD Report Number: [id number]: Total DLP = 458.00 mGy-cm Reason for Exam: R10.9 - Unspecified abdominal pain EXAMINATION: CT ABDOMEN AND PELVIS WITHOUT CONTRAST CLINICAL INFORMATION: Rule out hernia COMPARISON: CT 08/30/2024 TECHNIQUE: Multidetector volumetric imaging was performed from the superior aspect of the liver through the pubic symphysis. Sagittal and coronal reformatted images were obtained on the technologist's workstation. This CT examination was performed using dose optimization techniques as appropriate, variously including the following: *Automated exposure control *Adjustment of mA and/or kV according to patient size (this includes techniques or standardized protocols for targeted exams where dose is matched to indication/reason for exam; i.e. extremities or head) *Use of iterative reconstruction technique FINDINGS: LUNG BASES: Mild left lower lobe scarring. No pericardial or pleural effusion. LIVER, GALLBLADDER, AND BILIARY TREE: No focal liver lesion. No intrahepatic biliary duct dilatation. Status postcholecystectomy. Mild extrahepatic biliary duct prominence, could be compensatory, correlate with bilirubin. PANCREAS: No inflammatory changes SPLEEN: Unremarkable. ADRENAL GLANDS: Unremarkable. KIDNEYS AND URETERS: No calculi. No hydronephrosis. No suspicious lesions. BLADDER: Nondistended limiting evaluation GASTROINTESTINAL TRACT: Stomach is nondistended. No abnormal dilated small or large bowel loops. Small-moderate volume colonic stool. Colonic diverticulosis without evidence of diverticulitis. Appendix appears unremarkable. Peritoneum: No free fluid. No mesenteric edema identified. No free air. ABDOMINAL WALL: Redemonstrated lower abdomen midline fat-containing ventral hernia, with a neck of 2 x 2.2 cm. LYMPH NODES: No pathologically enlarged lymph nodes seen. VASCULAR: Normal caliber aorta. PELVIC VISCERA: Status post hysterectomy. Redemonstrated question of slightly low-lying urinary bladder and rectum. OSSEOUS STRUCTURES: No acute findings CT/CT abdomen pelvis wo IV con IMPRESSION: * Redemonstrated lower abdomen midline fat-containing ventral hernia, with the neck of 2 x 2.2 cm. * Status postcholecystectomy. * No acute abdominal findings identified. * Hysterectomy. Redemonstrated is slightly low lying urinary bladder and rectum, clinically correlate for mild pelvic floor dysfunction. Fleischner guidelines were followed. Electronically signed by: Reyes Rueda MD 02/18/2025 10:09 AM [facility] Dictated By: Reyes Rueda MD Signed By: <Electronically signed by Reyes Rueda MD in OV> 02/18/25 1009 DD/ 1003 TD/TT: 02/16/25 1018 Gas Station Cashier: ALEXANDRA [facility] External Provider IMG CT PROCEDURES Edited Result - Final documented in this encounter Visit Diagnoses Diagnosis Type 2 [...] documented as of this encounter Care Teams Hazardous Material Specialist Relationship Specialty Start Date End Date Patito Wilhelm MD [address] [place] [address] PCP - General Family Medicine 11/13/18 Wilber Christie, Kaia [address] [place] [address] Pharmacist Internal Medicine 01/28/23 documented as of this encounter
--- OUTSIDE RECORDS SUMMARY | 2025-03-01 07:45 | XMS_ITS | Encounter Summary ---
Author Organization [employer] Address [address] [facility] 7t [place] [address] Care Team Providers Care X Ray Equipment Mechanic Name Role Phone Patito Wilhelm MD Primary Care Provider [phone] Wilber Christie PharmD Unavailable [phone] Reason for Visit * Reason Onset Date Comments Med Refill 02/07/2023 Encounter Details Date Type Department Care Team (Late st Contact Info) Description 02/07/2023 Telephone [facility] [address] [place] [address] Patito Wilhelm MD [address] [place], [place] [phone] Med Refill Social History Tobacco Use Types [...] Description 03/12/2025 11:00 AM EST Office Visit [facility] [address] [place] [address] 05/10/2025 1:00 PM EST Medication Management [facility] [address] [place] [address] Wilber Christie PharmD [address] [place] [address] documented as of this encounter Goals Goal [...] documented as of this encounter Care Teams X Ray Equipment Mechanic Relationship Specialty Start Date End Date Patito Wilhelm MD [address] [place] [address] PCP - General Family Medicine 11/13/18 Wilber Christie, PennyD [address] [place] [address] Pharmacist Internal Medicine 01/28/23 documented as of this encounter
--- OUTSIDE RECORDS SUMMARY | 2025-03-01 07:45 | XMS_ITS | Encounter Summary ---
Author Organization [employer] Address [address] [facility] 7t [place] [address] Care Team Providers Care Community Outreach Manager Name Role Phone Patito Wilhelm MD Primary Care Provider [phone] Wilber Christie PharmD Unavailable [phone] Reason for Visit * Reason Onset Date Comments Med Refill 04/06/2023 Encounter Details Date Type Department Care Team (Late st Contact Info) Description 04/06/2023 Telephone [facility] [address] [place] [address] Patito Wilhelm MD [address] [place], [place] [phone] Med Refill Social History Tobacco Use Types [...] Please sent to [facility]/pharmacy #[id number] [place], [place] - [address] [place] [address] documented in this encounter Plan of Treatment Upcoming Encounters Date Type Department Care Team (Late st Contact Info) Description 03/12/2025 11:00 AM EST Office Visit [facility] [address] [place] [address] 05/10/2025 1:00 PM EST Medication Management [facility] [address] [place] [phone] Wilber Christie PharmD [address] [place] [address] documented as of this encounter Goals Goal [...] documented as of this encounter Care Teams Community Outreach Manager Relationship Specialty Start Date End Date Patito Wilhelm MD [address] [place] [address] PCP - General Family Medicine 11/13/18 Wilber Christie, PennyD [address] [place] [address] Pharmacist Internal Medicine 01/28/23 documented as of this encounter
--- OUTSIDE RECORDS SUMMARY | 2025-03-01 07:45 | XMS_ITS | Encounter Summary ---
Author Organization [employer] Address [address] [facility] 7t [place] [address] Care Team Providers Care Irrigation Teacher Name Role Phone Patito Wihlelm MD Primary Care Provider [phone] Wilber Christie PharmD Unavailable [phone] Reason for Visit * Reason Onset Date Comments Med Refill 02/05/2025 Encounter Details Date Type Department Care Team (Late st Contact Info) Description 02/05/2025 Telephone [facility] MED[facility]INE [address] [place] [address] Patito Wilhelm MD [address] [place] [address] Med Refill Social History Tobacco Use Types [...] 5-325 MG tablet To be sent to: [facility]/pharmacy #[id number] [place] [address] - [address] [place] [address] documented in this encounter Plan of Treatment Upcoming Encounters Date Type Department Care Team ([facility] st Contact Info) Description 03/12/2025 11:00 AM EST Office Visit [facility] MEDICINE [address] [place] [address] 05/10/2025 1:00 PM EST Medication Management [facility]INE [address] [place] [address] Wilber Christie, PharmD [address] [place] [address] documented as of this encounter Goals Goal [...] documented as of this encounter Care Teams Irrigation Teacher Relationship Specialty Start Date End Date Patito Wilhelm MD [address] [place] [address] PCP - General Family Medicine 11/13/18 Wilber Christie PharmD [address] [place] [address] Pharmacist Internal Medicine 01/28/23 documented as of this encounter
--- OUTSIDE RECORDS SUMMARY | 2025-03-01 07:45 | XMS_ITS | Encounter Summary ---
Author Organization [employer] Address [address] [facility] 7t [place] [address] Care Team Providers Care Consulting Engineer Name Role Phone Patito Wilhelm MD Primary Care Provider [phone] Wilber Christie PharmD Unavailable [phone] Reason for Visit * Reason Onset Date Comments Appointment Request 12/18/2024 Encounter Details Date Type Department Care Team ([facility] st Contact Info) Description 12/18/2024 Telephone [facility] [address] [place], [place] [phone] Patito Wilhelm MD 230 [place], [place] [phone] Appointment Request Social History Tobacco Use Types [...] pt not having transportation. Contact pt at [phone] Need presser machine documented in this encounter Plan of Treatment Upcoming Encounters Date Type Department Care Team (Late st Contact Info) Description 03/12/2025 11:00 AM EST Office Visit [facility] [address] [place] [phone] 05/10/2025 1:00 PM EST Medication Management [facility] [address] [place] [phone] Wilber Christie PharmD [address] [place] [phone] documented as of this encounter Goals Goal [...] documented as of this encounter Care Teams Consulting Engineer Relationship Specialty Start Date End Date Patito Wilhelm MD [address] [place] [address] PCP - General Family Medicine 11/13/18 Wilber Christie PharmD [address] [place] [address] Pharmacist Internal Medicine 01/28/23 documented as of this encounter
--- OUTSIDE RECORDS SUMMARY | 2025-03-01 07:45 | XMS_ITS | Encounter Summary ---
Author Organization [employer] Address [address] [facility] 7t [place] [address] Care Team Providers Care Lead Performance Support Analyst Name Role Phone Patito Wilhelm MD Primary Care Provider [phone] Wilber Christie PharmD Unavailable [phone] Reason for Visit * Reason Onset Date Comments Med Refill 07/11/2024 Encounter Details Date Type Department Care Team (Late st Contact Info) Description 07/11/2024 Telephone [facility] 230 [place] [address] Patito Wilhelm MD [address] [place] [address] Med Refill Social History Tobacco Use Types [...] 5-325 MG tablet To be sent to: [address] [address] documented in this encounter Plan of Treatment Upcoming Encounters Date Type Department Care Team (Late st Contact Info) Description 03/12/2025 11:00 AM EST Office Visit [facility] [address] [place] [address] 05/10/2025 1:00 PM EST Medication Management [facility] [address] [place] [address] Wilber Christie, PharmD [address] [place] [address] documented as of this encounter Goals Goal [...] documented as of this encounter Care Teams Lead Performance Support Analyst Relationship Specialty Start Date End Date Patito Wilhelm MD [address] [place] [address] PCP - General Family Medicine 11/13/18 Wilber Christie PharmD [address] [place] [address] Pharmacist Internal Medicine 01/28/23 documented as of this encounter
--- OUTSIDE RECORDS SUMMARY | 2025-03-01 07:45 | XMS_ITS | Encounter Summary ---
Author Organization [employer] Address [address] [facility] 7t [place] [address] Care Team Providers Care Meal Grinder Tender Name Role Phone Patito Wilhelm MD Primary Care Provider [phone] Wilber Christie PharmD Unavailable [phone] Reason for Visit * Reason Onset Date Comments Medication Question 12/03/2024 Encounter Details Date Type Department Care Team ([facility] st Contact Info) Description 12/03/[address] [facility] 230 [place], [place] [phone] Patito Wilhelm MD 230 [place], [place] [phone] Medication Question Social History Tobacco Use Types [...] Description 03/12/2025 11:00 AM EST Office Visit [facility] [address] [place] [address] 05/10/2025 1:00 PM EST Medication Management [facility] [address] [place] [address] Wilber Christie, PharmD [address] [place] [address] documented as of this encounter Goals Goal [...] documented as of this encounter Care Teams Meal Grinder Tender Relationship Specialty Start Date End Date Patito Wilhelm MD [address] [place] [address] PCP - General Family Medicine 11/13/18 Wilber Christie PharmD [address] [place] [address] Pharmacist Internal Medicine 01/28/23 documented as of this encounter
--- OUTSIDE RECORDS SUMMARY | 2025-03-01 07:45 | XMS_ITS | Encounter Summary ---
Author Organization [employer] Address [address] [facility] 7t [place] [address] Care Team Providers Care Interlocking And Signal Mechanic Name Role Phone Patito Wilhelm MD Primary Care Provider [phone] Wilber Christie PharmD Unavailable [phone] Reason for Visit * Reason Onset Date Comments Med Refill 08/16/2024 Encounter Details Date Type Department Care Team (Late st Contact Info) Description 08/16/2024 Telephone [facility] [address] [place] [address] Patito Wilhelm MD [address] [place] [address] Med Refill Social History Tobacco Use Types [...] 5-325 MG tablet To be sent to: [address] [address] documented in this encounter Plan of Treatment Upcoming Encounters Date Type Department Care Team ([facility] st Contact Info) Description 03/12/2025 11:00 AM EST Office Visit [facility] [address] [place] [address] 05/10/2025 1:00 PM EST Medication Management [facility] [address] [place] [phone] Wilber Christie, PharmD [address] [place] [address] documented as of this encounter Goals Goal [...] documented as of this encounter Care Teams Interlocking And Signal Mechanic Relationship Specialty Start Date End Date Patito Wilhelm MD [address] [place] [address] PCP - General Family Medicine 11/13/18 Wilber Christie PharmD [address] [place] [address] Pharmacist Internal Medicine 01/28/23 documented as of this encounter
--- OUTSIDE RECORDS SUMMARY | 2025-03-01 07:45 | XMS_ITS | Encounter Summary ---
Author Organization [employer] Address [address] [facility] 7t [place] [address] Care Team Providers Care Waterworks Operator Name Role Phone Patito Wilhelm MD Primary Care Provider [phone] Wilber Christie PharmD Unavailable [phone] Reason for Visit * Reason Comments Med Refill Encounter Details Date Type Department Care Team (Late st Contact Info) Description 01/26/2025 Refill [facility] 230 [place] [address] Patito Wilhelm MD [address] [place] [address] Social History Tobacco Use Types Packs/Day Years [...] 11:00 AM EST Office Visit [facility] MED[facility] [address] [place] [address] 05/10/2025 1:00 PM EST Medication Management [facility] [address] [place] [address] Wilber Christie PharmD [address] [place] [address] documented as of this encounter Goals Goal [...] documented as of this encounter Care Teams Waterworks Operator Relationship Specialty Start Date End Date Patito Wilhelm MD [address] [place] [address] PCP - General Family Medicine 11/13/18 Wilber Christie, PennyD [address] [place] [address] Pharmacist Internal Medicine 01/28/23 documented as of this encounter
--- OUTSIDE RECORDS SUMMARY | 2025-03-01 07:45 | XMS_ITS | Encounter Summary ---
Author Organization [employer] Address [address] [facility] 7t [place] [address] Care Team Providers Care Ebay Reseller Name Role Phone Patito Wilhelm MD Primary Care Provider [phone] Wilber Christie PharmD Unavailable [phone] Reason for Visit * Reason Onset Date Comments PAP Smear 08/1008/11/2023 Encounter Details Date Type Department Care Team ([facility] st Contact Info) Description 08/11/2023 Telephone [facility] 230 [place] [address] Patito Wilhelm MD [address] [place], [place] [phone] PAP Smear 08/10 Social History Tobacco Use [...] stated she wasn't able ot make it, comic writer attempted to r/s but no availability. Medical Equipment Sales advised pt call back August 16 r/s for October. documented in this encounter Plan of Treatment Upcoming Encounters Date Type Department Care Team (Late st Contact Info) Description 03/12/2025 11:00 AM EST Office Visit [facility] MED[facility] [address] [place] [phone] 05/10/2025 1:00 PM EST Medication Management [facility] [address] [place] [phone] Wilber Christie PharmD [address] [place] [address] documented as of this encounter Goals Goal [...] documented as of this encounter Care Teams Ebay Reseller Relationship Specialty Start Date End Date Patito Wilhelm MD [address] [place] [address] PCP - General Family Medicine 11/13/18 Wilber Christie, PennyD [address] [place] [address] Pharmacist Internal Medicine 01/28/23 documented as of this encounter
--- OUTSIDE RECORDS SUMMARY | 2025-03-01 07:45 | XMS_ITS | Encounter Summary ---
Author Organization [employer] Address [address] [facility] 7t [place] [address] Care Team Providers Care Scientific Affairs Manager Name Role Phone Patito Wilhelm MD Primary Care Provider [phone] Wilber Christie PharmD Unavailable [phone] Reason for Visit * Reason Onset Date Comments Medication Question 06/09/2023 Encounter Details Date Type Department Care Team ([facility] st Contact Info) Description 06/09/2023 Telephone [facility]INE 230 [place], [place] [phone] Patito Wilhelm MD 230 [place], [place] [phone] Medication Question Social History Tobacco Use Types [...] If any questions please contact pt at [phone]. documented in this encounter Plan of Treatment Upcoming Encounters Date Type Department Care Team (Late st Contact Info) Description 03/12/2025 11:00 AM EST Office Visit [facility] [address] [place] [address] 05/10/2025 1:00 PM EST Medication Management [facility] [address] [place] [address] Wilber Christie PharmD [address] [place] [address] documented as of this encounter Goals Goal [...] documented as of this encounter Care Teams Scientific Affairs Manager Relationship Specialty Start Date End Date Patito Wilhelm MD 230 [place] [address] PCP - General Family Medicine 11/13/18 Wilber Christie, PennyD [address] [place] [address] Pharmacist Internal Medicine 01/28/23 documented as of this encounter
--- OUTSIDE RECORDS SUMMARY | 2025-03-01 07:45 | XMS_ITS | Encounter Summary ---
Author Organization [employer] Address 75 [facility] 7t [place] [address] Care Team Providers Care Repairer Hairspring Name Role Phone Patito Wilhelm MD Primary Care Provider [phone] Wilber Christie PharmD Unavailable [phone] Reason for Visit * Reason Onset Date Comments Med Refill 03/08/2023 Encounter Details Date Type Department Care Team (Late st Contact Info) Description 03/08/2023 Telephone [facility] MEDICINE 230 [place] [address] Patito Wilhelm MD 230 [place], [place] [phone] Med Refill Social History Tobacco Use Types [...] 5-325 MG tablet Please sent to [facility]/pharmacy #[id number] [place], [place] - [address] [place] [address] documented in this encounter Plan of Treatment Upcoming Encounters Date Type Department Care Team (Late st Contact Info) Description 03/12/2025 11:00 AM EST Office Visit [facility] [address] [place] [address] 05/10/2025 1:00 PM EST Medication Management [facility] [address] [place] [address] Wilber Christie PharmD [address] [place] [address] documented as of this encounter Goals Goal [...] documented as of this encounter Care Teams Repairer Hairspring Relationship Specialty Start Date End Date Patito Wilhelm MD 230 [place] [address] PCP - General Family Medicine 11/13/18 Wilber Christie, PennyD [address] [place] [address] Pharmacist Internal Medicine 01/28/23 documented as of this encounter
--- OUTSIDE RECORDS SUMMARY | 2025-03-01 07:45 | XMS_ITS | Encounter Summary ---
Author Organization [employer] Address [address] [place] [address] [place], [place] [address] Care Team Providers Care Research Biostatistician Name Role Phone Patito Wilhelm MD Primary Care Provider [phone] Wilber Christie PharmD Unavailable [phone] Reason for Visit * Reason Comments Med Refill Encounter Details Date Type Department Care Team (Late Contact Info) Description 01/13/2023 Refill [facility] MEDICINE [address] [place] [address] Ashley Goodman MD 230 [place] [address] Chronic right shoulder pain Social History Tobacco [...] Description 03/12/2025 11:00 AM EST Office Visit [address] [phone] 05/10/2025 1:00 PM EST Medication Management [facility] MEDICINE 230 [place] [address] Wilber Christie, PharmD 230 [place] [address] documented as of this encounter Visit Diagnoses Diagnosis Chronic right shoulder pain Pain in joint, shoulder region documented in this encounter Additional Health Concerns Assessment Noted Time PHQ-9 Depression Total Score: 6 07/27/19 23 1:10 PM EDT documented as of this encounter Care Teams Research Biostatistician Relationship Specialty Start Date End Date Patito Wilhelm MD [address] [place] [address] PCP - General Family Medicine 11/13/18 Wilber Christie, PharmD [address] [place] [address] Pharmacist Internal Medicine 01/28/23 documented as of this encounter
--- OUTSIDE RECORDS SUMMARY | 2025-03-01 07:45 | XMS_ITS | Encounter Summary ---
Author Organization [employer] Address 75 [facility] 7t [place] [address] Care Team Providers Care Display Fabrication Supervisor Name Role Phone Patito Wilhelm MD Primary Care Provider [phone] Wilber Christie PharmD Unavailable [phone] Reason for Visit * Reason Onset Date Comments Med Refill 01/04/2025 Encounter Details Date Type Department Care Team (Late st Contact Info) Description 01/04/2025 Telephone [facility]ICINE 230 [place] [address] Patito Wilhelm MD 230 [place] [address] Med Refill Social History Tobacco Use Types [...] 5-325 MG tablet To be sent to: [facility]/pharmacy #[id number] [place] [address] - [address] [place] [address] documented in this encounter Plan of Treatment Upcoming Encounters Date Type Department Care Team ([facility] st Contact Info) Description 03/12/2025 11:00 AM EST Office Visit [facility] [address] [place] [address] 05/10/2025 1:00 PM EST Medication Management [facility] [address] [place] [address] Wilber Christie, PharmD 230 [place] [address] documented as of this encounter Goals Goal [...] documented as of this encounter Care Teams Display Fabrication Supervisor Relationship Specialty Start Date End Date Patito Wilhelm MD 230 [place] [address] PCP - General Family Medicine 11/13/18 Wilber Christie PharmD [address] [place] [address] Pharmacist Internal Medicine 01/28/23 documented as of this encounter
--- OUTSIDE RECORDS SUMMARY | 2025-03-01 07:45 | XMS_ITS | Clinical Summary ---
Author Organization [facility]. Address [address] [facility] [address] [place] [address] Phone Care Team Providers Care Assistant Business Manager Name Role Phone Patito Wilhelm MD Primary Care Provider [phone] Allergies Active Allergy Reactions Criticality Noted Date [...] & Plan: - recommended to check with supervisor paint department if she can receive steroid injection Chronic primary bladder pain syndrome 08/14/2012 05/03/2023 Overview (05/03/2023): Last Assessment & Plan: -Followed by urologist, [facility], last seen on 02/22/22 -Prescribed tamsulosin Chronic low back pain 08/14/2012 05/03/2023 Overview (05/03/2023): Last Assessment & Plan: -Seen by supervisor paint department on 12/16/22, yet mainly for left knee [...] (05/03/2023): Last Assessment & Plan: -Followed by [facility] pulmonology, last seen on 11/30/21 -Questionable adherence to medications according to refill history -Reviewed her medications today and discussed about the importance of adherence -Continue Dulera and Spiriva as maintenance -Continue albuterol HFA prn as rescue -Consider referring to MTM -Urged to schedule appt with armhole feller handstitching machine; pt verbalized understanding Type 2 diabetes mellitus [...] active Hep C. -Check the satus of [employer] Rachael -Last eye exam: 06/18/22, no retinopathy [...] Last Assessment & Plan: - Following with [facility] Asphalt Spreader, last seen on 12/16/22, started on Euflexxa injection - XR on 12/16/22 showed : mild Osteoarthritis - Currently receiving intraarticular Euflexxa (hyaluronate derivative) Injection - Continue current Tx plan per supervisor paint department Viral hepatitis C 09/20/2011 05/03/2023 Encounters Date Type Department Care Team Description 02/06/2025 Orders Only [facility] [address] [facility] [address] [place] [address] Jareth Rowan MD Essential (primary) hypertension 01/26/2025 Refill [facility] [address] [facility] [address] [place] [address] Jareth Rowan MD from Last [...] Visit [facility] [address] [place] [address] Jareth Rowan MD [address] [facility] [address] [place] [address] Health Maintenance Due Date Last Done Comments [...] 01/23/2025, , 01/10/2023, Additional history [place] [address] ([id number]) [place] [address] ([id number]) Care Teams Assistant Business Manager Relationship Specialty Start Date End Date Patito Wilhelm MD [address] [place] [address] PCP - General Family Medicine 02/07/24
--- OUTSIDE RECORDS SUMMARY | 2025-03-01 07:46 | XMS_ITS | Encounter Summary ---
Author Organization [employer] Address [address] [place] [address] 7 [place] [address] Care Team Providers Care Bullet Casting Operator Name Role Phone Patito Wilhelm MD Primary Care Provider [phone] Wilber Christie PharmD Unavailable [phone] Encounter Details Date Type Department Care Team (Latest Contact Info) Description 02/21/2019 Abstract [facility] CONVERSIONS Dental, Provider, DDS Social History [...] Description 03/12/2025 11:00 AM EST Office Visit [facility] MEDICINE [address] [place] [address] 05/10/2025 1:00 PM EST Medication Management [facility] MEDICINE [address] [place] [address] Wilber Christie, PharmD 230 [place] [address] documented as of this encounter Visit Diagnoses Not on filedocumented in this encounter Care Teams Bullet Casting Operator Relationship Specialty Start Date End Date Patito Wilhelm MD [address] [place] [address] PCP - General Family Medicine 11/13/18 Wilber Christie, PennyD 230 [facility] [place] [address] Pharmacist Internal Medicine 01/28/23 documented as of this encounter
--- OUTSIDE RECORDS SUMMARY | 2025-03-01 07:46 | XMS_ITS | Encounter Summary ---
Author Organization [employer] Address [address] [facility] 7t [place] [address] Care Team Providers Care Eradicator Name Role Phone Patito Wilhelm MD Primary Care Provider [phone] Wilber Christie PharmD Unavailable [phone] Reason for Visit * Reason Onset Date Comments Med Refill 09/14/2024 Encounter Details Date Type Department Care Team (Late st Contact Info) Description 09/14/2024 Telephone [facility] MEDICINE 230 [place] [address] Patito Wilhelm MD 230 [place] [address] Med Refill Social History Tobacco Use Types [...] 5-325 MG tablet To be sent to: [facility]/pharmacy #[id number] [place] [address] - [address] [place] [address] documented in this encounter Plan of Treatment Upcoming Encounters Date Type Department Care Team ([facility] st Contact Info) Description 03/12/2025 11:00 AM EST Office Visit [facility]INE [address] [place] [address] 05/10/2025 1:00 PM EST Medication Management [facility] [address] [place] [address] Wilber Christie, PharmD 230 [place] [address] documented as of this encounter Goals Goal [...] documented as of this encounter Care Teams Eradicator Relationship Specialty Start Date End Date Patito Wilhelm MD 230 [place] [address] PCP - General Family Medicine 11/13/18 Wilber Christie PharmD [address] [place] [address] Pharmacist Internal Medicine 01/28/23 documented as of this encounter
--- OUTSIDE RECORDS SUMMARY | 2025-03-01 07:46 | XMS_ITS | Encounter Summary ---
Author Organization [employer] Address [address] [place] [address] 7 [place] [address] Care Team Providers Care Pattern Changer Name Role Phone Patito Wilhelm MD Primary Care Provider [phone] Wilber Christie PharmD Unavailable [phone] Reason for Referral * Consultation (Routine) - Closed Specialty Diagnoses / Procedures Referred By [facility] t Referred To Contact Pharmacy Diagnoses Primary hypertension Type 2 diabetes mellitus with both eyes affected by mild nonproliferative retinopathy without macular edema, with long-term current use of insulin (HCC) Patito Wilhelm MD [address] [place] [address] Phone: tel: fax: Referral ID Status Reason Start Date Expiration Date V isits Requested Visits Authorized [id number] Closed Consult and Treat 02/09/2024 02/08/2025 6 6 Encounter Details Date Type Department Care Team (Late st Contact Info) Description 02/09/2024 Orders Only [facility] MEDICINE [address] [place] [address] Patito Wilhelm MD 230 [place], [place] [phone] Primary hypertension (Primary Dx); Type 2 diabetes mellitus with both eyes affected by mild nonproliferative retinopathy without macular edema, with long-term current use of insulin ([facility]/HCC) Social History Tobacco Use Types Packs/Day Years [...] Description 03/12/2025 11:00 AM EST Office Visit [facility]INE [address] [place] [address] [phone] 05/10/2025 1:00 PM EST Medication Management [facility]INE [address] [place] [address] Wilber Christie, PharmD 230 [place] [address] Scheduled Referrals Name Type Priority Associated Diagnoses Orde r Schedule Referral to Pharmacy CD Outpatient Referral Routine Primary hypertension Type 2 diabetes mellitus with both eyes affected by mild nonproliferative retinopathy without macular edema, with long-term current use of insulin ([facility]) Ordered: 02/09/2024 documented as of this encounter [...] with long-term current use of insulin ([facility]) documented in this encounter Additional Health Concerns Assessment Noted Time PHQ-9 Depression Total Score: 11 024 1:39 PM EDT documented as of this encounter Care Teams Pattern Changer Relationship Specialty Start Date End Date Patito Wilhelm MD 230 [place] [address] PCP - General Family Medicine 11/13/18 Wilber Christie, Kaia 230 [place] [address] Pharmacist Internal Medicine 01/28/23 documented as of this encounter
--- OUTSIDE RECORDS SUMMARY | 2025-03-01 07:46 | XMS_ITS | Encounter Summary ---
Author Organization [employer] Address [address] [place] [address] 7 [place] [address] Care Team Providers Care Form Maker Plaster Name Role Phone Patito Wilhelm MD Primary Care Provider [phone] Wilber Christie PharmD Unavailable [phone] Encounter Details Date Type Department Care Team (Latest Contact Info) Description 03/24/2020 Abstract [facility] CONVERSIONS Dental, Provider, DDS Social History Tobacco [...] 11:00 AM EST Office Visit [facility] MEDICINE [address] [place] [address] 05/10/2025 1:00 PM EST Medication Management [facility] MEDICINE [address] [place] [address] Wilber Christie, PharmD 230 [place] [address] documented as of this encounter Visit Diagnoses Not on filedocumented in this encounter Care Teams Form Maker Plaster Relationship Specialty Start Date End Date Patito Wilhelm MD [address] [place] [address] PCP - General Family Medicine 11/13/18 Wilber Christie, PennyD 230 [place] [address] Pharmacist Internal Medicine 01/28/23 documented as of this encounter
--- OUTSIDE RECORDS SUMMARY | 2025-03-01 07:46 | XMS_ITS | Encounter Summary ---
Author Organization [employer] Address [address] [place] [address] 7t [place] [address] Care Team Providers Care Inspector Material Disposition Name Role Phone Patito Wilhelm MD Primary Care Provider [phone] Wilber Christie PharmD Unavailable Reason for Visit * Reason Comments Med Refill Encounter Details Date Type Department Care Team (Late Contact Info) Description 08/11/2022 Refill [facility] MEDICINE 230 [place] [address] Racquel Fu MD 230 [place] [address] Social History Tobacco Use Types Packs/Day Years [...] 11:00 AM EST Office Visit [facility] MEDICINE [address] [place] [address] 05/10/2025 1:00 PM EST Medication Management [address] [address] Wilber Christie, PharmD [address] [place] [address] documented as of this encounter Visit Diagnoses Not on filedocumented in this encounter Additional Health Concerns Assessment Noted Time PHQ-9 Depression Total Score: 6 07/27/19 1:10 PM EDT documented as of this encounter Care Teams Inspector Material Disposition Relationship Specialty Start Date End Date Patito Wilhelm MD [address] [place] [address] PCP - General Family Medicine 11/13/18 Wilber Christie, Kaia [address] [place] [address] Pharmacist Internal Medicine 01/28/23 documented as of this encounter
--- OUTSIDE RECORDS SUMMARY | 2025-03-01 07:46 | XMS_ITS | Encounter Summary ---
Author Organization [employer] Address [address] [facility] 7t [place] [address] Care Team Providers Care Strip Presser Name Role Phone Patito Wilhelm MD Primary Care Provider [phone] Wilber Christie PharmD Unavailable [phone] Reason for Visit * Reason Comments Med Refill Encounter Details Date Type Department Care Team (Late st Contact Info) Description 03/27/2024 Refill [facility] MEDICINE 230 [place] [address] Patito Wilhelm MD 230 [place] [address] Type 2 diabetes mellitus with diabetic polyneuropathy, with long-term current use of insulin ([facility]) Social History Tobacco Use Types [...] 03/12/2025 11:00 AM EST Office Visit [facility] MEDICINE [address] [place] [address] 05/10/2025 1:00 PM EST Medication Management [facility] MEDICINE [address] [place] [address] Wilber Christie PharmD [address] [place] [address] documented as of this encounter Goals Goal [...] documented as of this encounter Care Teams Strip Presser Relationship Specialty Start Date End Date Patito Wilhelm MD 230 [place] [address] PCP - General Family Medicine 11/13/18 Wilber Christie, Kaia 230 [place] [address] Pharmacist Internal Medicine 01/28/23 documented as of this encounter
--- OUTSIDE RECORDS SUMMARY | 2025-03-01 07:46 | XMS_ITS | Encounter Summary ---
Author Organization [employer] Address [address] [facility] 7t [place] [address] Care Team Providers Care Caustic Strength Inspector Name Role Phone Patito Wilhelm MD Primary Care Provider [phone] Wilber Christie PharmD Unavailable [phone] Reason for Visit * Reason Onset Date Comments Appointment Request 10/24/2023 Encounter Details Date Type Department Care Team ([facility] st Contact Info) Description 10/24/2023 Telephone [facility] MEDICINE 230 [place], [place] [phone] Patito Wilhelm MD 230 [place], [place] [phone] Appointment Request Social History Tobacco Use Types [...] Description 03/12/2025 11:00 AM EST Office Visit [address] [address] 05/10/2025 1:00 PM EST Medication Management [address] [address] Wilber Christie PharmD [address] [place] [address] documented as of this encounter Goals Goal [...] documented as of this encounter Care Teams Caustic Strength Inspector Relationship Specialty Start Date End Date Patito Wilhelm MD [address] [place] [address] PCP - General Family Medicine 11/13/18 Wilber Christie, PennyD [address] [place] [address] Pharmacist Internal Medicine 01/28/23 documented as of this encounter
--- OUTSIDE RECORDS SUMMARY | 2025-03-01 07:46 | XMS_ITS | Encounter Summary ---
Author Organization [email or web address] Address [address] [facility] 7t [place] [address] Care Team Providers Care Baking Factory Worker Name Role Phone Patito Wilhelm MD Primary Care Provider [phone] Wilber Christie PharmD Unavailable [phone] Reason for Visit * Reason Onset Date Comments Appointment Request 10/19/2023 Encounter Details Date Type Department Care Team ([facility] st Contact Info) Description 10/19/2023 Telephone [facility] MEDICINE 230 [place], [place] [phone] Patito Wilhelm MD 230 [place], [place] [phone] Appointment Request Social History Tobacco Use Types [...] week with PCP. Please contact pt at [phone] documented in this encounter Plan of Treatment Upcoming Encounters Date Type Department Care Team (Late st Contact Info) Description 03/12/2025 11:00 AM EST Office Visit [facility] MEDICINE [address] [place] [address] 05/10/2025 1:00 PM EST Medication Management [facility] MEDICINE [address] [place] [address] Wilber Christie PharmD [address] [place] [address] documented as of this encounter Goals Goal [...] documented as of this encounter Care Teams Baking Factory Worker Relationship Specialty Start Date End Date Sakurai, Patito, MD 230 [place], [place] [phone] PCP - General Family Medicine 11/13/18 Wilber Christie, PennyD 230 [place] [address] Pharmacist Internal Medicine 01/28/23 documented as of this encounter
--- OUTSIDE RECORDS SUMMARY | 2025-03-01 07:46 | XMS_ITS | Encounter Summary ---
Author Organization [employer] Address [address] [facility] 7t [place] [address] Care Team Providers Care Stonecutter Hand Name Role Phone Patito Wilhelm MD Primary Care Provider [phone] Wilber Christie PharmD Unavailable [phone] Reason for Visit * Reason Onset Date Comments Med Refill 12/02/2023 Encounter Details Date Type Department Care Team (Late st Contact Info) Description 12/02/2023 Refill [facility] MEDICINE 230 [place] [address] Patito Wilhelm MD [address] [place] [address] Chronic bilateral low back pain, unspecified whether [...] 5-325 MG tablet To be sent to: [facility]/pharmacy #[address] [place], [place] [address] [employer] [facility] Prescription last filled on 11/04/23 0 Refills Left ENEDINA with PCP: 08/30/23 * Telephone Encounter - Rodrigue Lawton - 12/02/2023 10:30 AM EDT TC from pt requesting medication refill. Medications needing refill : oxyCODONE-acetaminophen (Percocet) 5-325 MG tablet To be sent to: [facility]/pharmacy [facility] [facility] [employer] [facility] documented in this encounter Plan of Treatment Upcoming Encounters Date Type Department Care Team (Late st Contact Info) Description 03/12/2025 11:00 AM EST Office Visit [address] [address] 05/10/2025 1:00 PM EST Medication Management [address] [address] Wilber Christie PharmD [address] [place] [address] documented as of this encounter Goals Goal [...] documented as of this encounter Care Teams Stonecutter Hand Relationship Specialty Start Date End Date Patito Wilhelm MD [address] [place] [address] PCP - General Family Medicine 11/13/18 Wilber Christie PharmD [address] [place] [address] Pharmacist Internal Medicine 01/28/23 documented as of this encounter
--- OUTSIDE RECORDS SUMMARY | 2025-03-01 07:46 | XMS_ITS | Patient Health Record ---
Author Organization [facility] Address [address] [place] [address] Care Team Providers Care Medical Videographer Name Role Phone Choco GANDHI, Patito Primary Care Provider Leonardo Harding [phone] Allergies Allergen (clinical drug ingredient) Drug/Non Drug [...] Status Risk Notes Problem Colon cancer screening (313331674) Colon cancer screening (Z12.11) Active confirmed Problem Diverticular disease of colon (234787925) Diverticulosis of large intestine without perforation or abscess without bleeding (K57.30) Active confirmed Problem Irritable bowel syndrome with diarrhea (754116061) Irritable bowel syndrome with diarrhea (K58.0) Active confirmed Problem Right upper quadrant pain (262453328) Right upper quadrant pain (R10.11) Active confirmed Problem Nausea (415670157) Nausea (R11.0) Active confir med Problem Gastroesophageal reflux disease without esophagitis (384308059) Gastroesophageal reflux disease without esophagitis (K21.9) Active confirmed Problem Chronic hepatitis C (559917107) Chronic hepatitis C without hepatic coma (B18.2) Active confirmed Problem Chronic hepatitis C (708234301) Chronic hepatitis C (B18.2) Active confirmed Problem Right upper quadrant pain (914317742) Abdominal pain, right upper quadrant (R10.11) Active confirmed Problem Belching (11590250) Belching (R14.2) Active con firmed Problem History of hepatitis C (82565662895468) History of hepatitis C (Z86.19) Active confirmed Problem Right upper quadrant pain (527054181) RUQ abdominal pain (R10.11) Active confirmed Problem Irritable bowel syndrome (11235595) Irritable bowel syndrome, unspecified type (K58.9) Active confirmed Problem Gallbladder disease (46891516) Gallbladder sludge (K82.8) Active confirmed Problem Hepatic fibrosis (disorder) (16988561) Liver fibrosis (K74.00) Active confirmed Encounters Encounter Location Date Provider Diagnosis [facility] [address] [place] [address] 07/19/2024 Leonardo Stratton Plan Of Treatment Pending [...] Insured Coverage Start Date Coverage End Date [facility] [address] Attn Claims JOSE Workman [phone] [id number] JAMEL NASSAR Self - patient is the [...] with hiatal hernia Irritable bowel syndrome Denies CT, stroke, and renal disease Fatty liver EGD [...]
--- OUTSIDE RECORDS SUMMARY | 2025-03-01 07:46 | XMS_ITS | Clinical Summary ---
Author Organization [employer] Address [address] [place] [address] [address] [place] [address] Care Team Providers Care Dehydrator Name Role Phone Patito Wilhelm MD Primary Care Provider [phone] Wilber Christie PharmD Unavailable [phone] Allergies Active Allergy Reactions Criticality Noted Date [...] polyneuropathy, with long-term current use of insulin ([facility]) Apply 1 Pad topically 2 times daily. [...] edema, with long-term current use of insulin ([facility]) Check blood glucose 3 times daily and [...] edema, with long-term current use of insulin ([facility]) INJECT 25 UNITS subcutaneously TWICE DAILY 15 [...] THE MORNING 90 tablet 3 025 Active ciclopirox (Loprox) 0.77 % cream Apply topically 2 times daily. 90 g 025 Active Diclofenac Sodium 1 % gel Apply to painful area once or twice daily as needed 150 g 11 025 Active lidocaine (LMX 4) 4 % [...] MOUTH ONCE PER DAY. 90 capsule 3 025 Active B Complex Vitamins (Vitamin B Complex) capsule TAKE 1 CAPSULE BY MOUTH TWICE A DAY 90 each 025 Active pregabalin (Lyrica) 100 MG capsuleIndications :Meralgia [...] 28 days. 56 tablet 025 03/05 Active Tirzepatide (Mounjaro) 2.5 MG/0.5ML solution auto-injectorIndic ations:Type 2 diabetes mellitus with both eyes affected by mild nonproliferative retinopathy without macular edema, with long-term current use of insulin (HCC) Inject 2.5 mg under the skin 1 (one) time per week. 2 mL 11 Active meclizine (Antivert) 25 MG tabletIndications: BPPV (benign paroxysmal positional vertigo), unspecified laterality Take 1 tablet (25 mg) by mouth if needed in the morning, at noon, and at bedtime for dizziness or nausea. 30 tablet 3 Active pregabalin (Lyrica) 75 MG capsuleIndications :Meralgia paresthetica, left TAKE 1 CAPSULE BY MOUTH, TWO TIMES EVERY DAY. 60 capsule 1 025 02/04 Discontinued( Reorder (will not trigger notification to Pharmacy)) meclizine (Antivert) 25 MG tabletIndications: BPPV (benign paroxysmal positional vertigo), unspecified laterality Take 1 tablet (25 mg) by mouth if needed in the morning, at noon, and at bedtime for dizziness or nausea. 30 tablet 3 025 02/22 Discontinued( Reorder (will not trigger notification to Pharmacy)) oxyCODONE-acetamin ophen (Percocet) 5-325 MG tabletIndications: Chronic back pain, unspecified back location, unspecified back pain laterality Take 1 tablet by mouth every 12 (twelve) hours if needed for severe pain for up to 28 days. 56 tablet 025 02/05 Discontinued( Reorder (will not trigger notification to Pharmacy)) Semaglutide, 2 MG/DOSE, (Ozempic, 2 MG/DOSE,) 8 MG/3ML solution pen-injectorIndica tions:Type 2 diabetes mellitus with both eyes affected by mild nonproliferative retinopathy without macular edema, with long-term current use of insulin (HCC) INJECT 0.75 ML (2 MG) UNDER THE SKIN 1 (ONE) TIME PER WEEK. 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 Saez Left shoulder pain 02/03/2025 Assessment & Plan (02/03/2025 6:56 PM EDT): - Status post left shoulder arthroscopic surgery on 06/29/2024 - Following with [facility] [place]opedic Burning sensation 11/27/2024 Assessment & Plan (11/27/2024 5:33 PM EDT): Neuropathy? C/w pregabaline as prescribed I will prescribe local lidocaine cream F/u with PCP Long-term current use of opiate analgesic 2024 Overview (10/09/2024): Medication: Percocet 5/325mg Q12H PRN Indication: lumbar radiculopathy, fibromyalgia Last LEAD ENGINEER Agreement: 07/06/24 LEAD ENGINEER visits Q3-4 months Assessment & Plan (12/11/2024 [...] nasal spray Fibromyalgia 12/12/2023 Assessment & Plan (02/18/2025 7:20 AM EST): - continue duloxetine - agreed to increase pregabalin dose; advised to use judiciously Assessment & Plan (10/09/2024 6:15 PM EDT): [...] Plan (02/08/2025 11:28 PM EDT): -Seen by paintings restorer on 03/30/23 -Received lumbar facet block bilateral [...] Plan (10/29/2024 12:57 PM EDT): -Seen by paintings restorer on 03/30/23 -Received lumbar facet block bilateral [...] Plan (12/12/2023 4:47 AM EDT): -Seen by paintings restorer on 03/30/23 -Received lumbar facet block bilateral on 04/28/22 -Received DEE L5-S1 on 04/19/23 -Continue judicious use of oxycodone-APAP and pregabalin -Continue topical diclofenac Assessment & Plan (12/12/2023 4:55 AM EDT): >>ASSESSMENT AND PLAN FOR LUMBOSACRAL RADICULOPATHY WRITTEN ON 06/04/2023 5:53 AM BY PATITO WILHELM MD -Seen by paintings restorer on 03/30/23 -Received lumbar facet block bilateral on 04/28/22 -Received DEE L5-S1 on 04/19/23 -Continue judicious use of oxycodone-APAP and pregabalin -Continue topical diclofenac >>ASSESSMENT AND PLAN FOR LUMBAR RADICULOPATHY WRITTEN ON 06/02/2023 9:43 AM BY LINDA ANDERSONX Seasonal allergies 05/03/2023 Assessment & Plan (12/12/2023 4:57 AM EDT): - continue cetirizine and montelukast Gastroesophageal reflux disease 05/03/2023 Disorder of sacroiliac joint 05/03/2023 Overweight 01/10/2023 Assessment & Plan (06/04/2023 6:11 AM EST): - lifestyle modification - patient is on dulaglutide for diabetes Dyslipidemia 01/10/2023 Assessment & Plan (02/18/2025 7:17 AM EST): - last lipid profile: 07/06/24 TC 171; TG 143; HDL 43; LDL 100 - current medication: Rosuvastatin 20 mg at bedtime, consider increasing as tolerated or add ezetimibe - continue working on lifestyle modification Assessment [...] dicyclomine Meralgia paresthetica 05/09/2022 Assessment & Plan (02/18/2025 7:20 AM EST): -followed by pain management -increase pregabalin dose Assessment & Plan (10/29/2024 12:57 PM EDT): -followed by pain management Assessment & Plan (04/02/2023 6:09 AM EST): -followed by pain management Assessment & Plan (05/14/2022 4:47 PM EST): -followed by pain management -pt is now having similar sxs on her right thigh Recurrent major depressive episodes, moderate ([facility]/HCC) [...] Irritable bowel syndrome 05/04/2017 Assessment & Plan (02/18/2025 7:12 AM EST): - Followed by GI, last appt in October 2023 - Prescribed dicyclomine - Continue as prescribed Assessment & Plan (12/12/2023 4:55 AM EDT): [...] PM EDT): - recommended to check with paintings restorer if she can receive steroid injection Assessment & Plan (08/09/2022 5:26 AM EDT): - recommended to check with paintings restorer if she can receive steroid injection Chronic interstitial cystitis 08/14/2012 Assessment & Plan (08/30/2023 2:38 PM EDT): -Followed by urologist [facility], last seen on 02/22/22 -Prescribed tamsulosin, no longer taking Assessment & Plan (04/02/2023 6:05 AM EST): -Followed by urologist [facility], last seen on 02/22/22 -Prescribed tamsulosin, no longer taking Assessment & Plan (05/14/2022 5:02 PM EST): -Followed by urologist [facility], last seen on 02/22/22 -Prescribed tamsulosin Chronic low back pain 08/14/2012 Assessment & Plan (02/08/2025 11:23 PM EDT): -Seen by paintings restorer on 02/11/23 -Received lumbar facet block bilateral on 04/28/22 -Received DEE L5-S1 on 04/19/23 -Continue judicious use of oxycodone-APAP and pregabalin -Continue topical diclofenac -Continue following with paintings restorer - Continue attending chronic pain group -Encouraged to continue PT Assessment & Plan (11/10/2024 6:27 AM EDT): -Seen by paintings restorer on 02/11/23 -Received lumbar facet block bilateral on 04/28/22 -Received DEE L5-S1 on 04/19/23 -Continue judicious use of oxycodone-APAP and pregabalin -Continue topical diclofenac -Continue following with paintings restorer - Continue attending chronic pain group -Encouraged to continue PT Assessment & Plan (12/12/2023 4:52 AM EDT): -Seen by paintings restorer on 02/11/23 -Received lumbar facet block bilateral on 04/28/22 -Received DEE L5-S1 on 04/19/23 -Continue judicious use of oxycodone-APAP and pregabalin -Continue topical diclofenac -Continue following with paintings restorer -Encouraged to continue PT Assessment & Plan (08/30/2023 2:41 PM EDT): -Seen by paintings restorer on 02/11/23 -Received lumbar facet block bilateral on 04/28/22 -Received DEE L5-S1 on 04/19/23 -Continue judicious use of oxycodone-APAP and pregabalin -Continue topical diclofenac -Continue following with paintings restorer -Encouraged to continue PT Assessment & Plan (06/04/2023 6:04 AM EST): -Seen by paintings restorer on 02/11/23 -Received lumbar facet block bilateral on 04/28/22 -Received DEE L5-S1 on 04/19/23 -Continue judicious use of oxycodone-APAP and pregabalin -Continue topical diclofenac -Continue following with paintings restorer -Encouraged to continue PT Assessment & Plan (04/02/2023 6:10 AM EST): -Seen by paintings restorer on 02/11/23 -Received lumbar facet block bilateral on 04/28/22 -Scheduled for DEE L5-S1 soon -Continue judicious use of oxycodone-APAP and pregabalin -Continue topical diclofenac Assessment & Plan (01/10/2023 5:38 PM EDT): -Seen by paintings restorer on 12/16/22, yet mainly for left knee pain -Received lumbar facet block bilateral on 04/28/22 -Continue judicious use of oxycodone-APAP and pregabalin -Continue topical diclofenac Assessment & Plan (12/26/2022 5:36 AM EDT): -Seen by paintings restorer on 02/04/22. -Received lumbar facet block bilateral on 04/28/22 Assessment & Plan (05/14/2022 5:00 PM EST): -Seen by paintings restorer on 02/04/22. -Received lumbar facet block bilateral on 04/28/22 Hypertension 11/25/2011 Assessment & Plan (02/18/2025 7:16 AM EST): -Goal BP < 130/80 per ACC/AHA guideline (Treatment threshold >= 130/80 ) -History of questionable medication adherence -In a setting of chronic pain -Co-managed with pharmacist, manager green, and job service consultant -s/p 24-hour BP monitoring by nephrology; recommended sleep study and increased metoprolol -Continue checking home BP -Continue working on lifestyle modification -Continue metoprolol succinate 75 mg daily -Continue Valsartan to 320mg daily -Treatment Hx: lisinpril was discontinued due to cough;Losartan was self- discontinued due to dry mouth; amlodipine was self-discontinued due to dry mouth; metoprolol was increased by job service consultant from 50 mg to 75 mg. Recently BP has been stable, so Muffler Tender tapered Metoprolol down to 25 mg, but pt started to have palpitations and self increased back to 50 mg. Assessment & Plan (10/29/2024 12:56 PM EDT): -Goal BP < 140/90 per JNC-8 and < 130/80 per ACC/AHA guideline (Treatment threshold >= 130/80 ) -History of questionable medication adherence -In a setting of chronic pain -Co-managed with pharmacist, manager green, and job service consultant -s/p 24-hour BP monitoring by nephrology; recommended sleep study and increased metoprolol -Continue checking home BP -Continue working on lifestyle modification -Continue metoprolol succinate 75 mg daily -Continue Valsartan to 320mg daily -Treatment Hx: lisinpril was discontinued due to cough;Losartan was self- discontinued due to dry mouth; amlodipine was self-discontinued due to dry mouth; metoprolol was increased by job service consultant from 50 mg to 75 mg. Recently BP has been stable, so Muffler Tender tapered Metoprolol down to 25 mg, but pt started to have palpitations and self increased back to 50 mg. Assessment & Plan (03/27/2024 3:57 PM EST): -Goal BP < 140/90 per JNC-8 and < 130/80 per ACC/AHA guideline (Treatment threshold >= 130/80 ) -History of questionable medication adherence -In a setting of chronic pain -Co-managed with pharmacist, manager green, and job service consultant -s/p 24-hour BP monitoring by nephrology; recommended sleep study and increased metoprolol -Continue checking home BP -Continue working on lifestyle modification -Continue metoprolol succinate 75 mg daily -Continue Valsartan to 320mg daily -Treatment Hx: lisinpril was discontinued due to cough;Losartan was self- discontinued due to dry mouth; amlodipine was self-discontinued due to dry mouth; metoprolol was increased by job service consultant from 50 mg to 75 mg. Recently BP has been stable, so Muffler Tender tapered Metoprolol down to 25 mg, but pt started to have palpitations and self increased back to 50 mg. Assessment & Plan (12/12/2023 4:46 AM EDT): -Goal BP < 140/90 per JNC-8 and < 130/80 per ACC/AHA guideline (Treatment threshold >= 130/80 ) -History of questionable medication adherence -In a setting of chronic pain -Co-managed with pharmacist, manager green, and job service consultant -s/p 24-hour BP monitoring by nephrology; recommended sleep study and increased metoprolol -Continue checking home BP -Continue working on lifestyle modification -Continue metoprolol succinate 75 mg daily -Continue Valsartan to 320mg daily -Treatment Hx: lisinpril was discontinued due to cough;Losartan was self- discontinued due to dry mouth; amlodipine was self-discontinued due to dry mouth; metoprolol was increased by job service consultant from 50 mg to 75 mg Assessment & Plan (08/30/2023 2:37 PM EDT): -Goal BP < 140/90 per JNC-8 and < 130/80 per ACC/AHA guideline (Treatment threshold >= 130/80 ) -Questionable medication adherence -Co-managed with pharmacist and manager green -Continue checking home BP -Continue working on [...] -Questionable medication adherence -Co-managed with pharmacist and manager green -Continue checking home BP -Continue working on [...] -Questionable medication adherence -Co-managed with pharmacist and manager green -Continue checking home BP -Continue working on [...] lisinpril was discontinued due to cough;Losartan was self-discontinued due to dry mouth; amlodipine was self-discontinued [...] Plan (02/08/2025 11:28 PM EDT): -Followed by [facility] pulmonology, last seen on 10/10/2024, -Currently [...] Plan (11/10/2024 6:30 AM EDT): -Followed by [facility] pulmonology, last seen on 10/10/2024, -Currently [...] Plan (03/27/2024 3:55 PM EST): -Followed by [facility] pulmonology, last seen on 03/28/23, switched mometasone / formoterol (Dulera) to budesonide / formoterol (Symbicort) -Questionable adherence to medications according to refill history, she is unaware of budesonide / formoterol (Symbicort) prescription -Reviewed her medications today and discussed about the importance of adherence; Advised to apple picking supervisor her budesonide / formoterol (Symbicort) and get her lab done prior to next appointment with spinning lathe operator automatic -Currently prescribed budesonide / formoterol (Symbicort) and tiotropium (Spiriva) as maintenance -Continue albuterol HFA prn as rescue -Treatment Hx: Previously on fluticasone (Flovent), which was changed to mometasone / formoterol (Dulera). Mometasone / formoterol (Dulera) was changed to budesonide / formoterol (Symbicort) most recently -Reviewed the importance of medication adherence and recommended to contact pharmacist and spinning lathe operator automatic for clarification of currently prescribed inhalers. Assessment & Plan (12/06/2023 1:45 PM EDT): -Followed by [facility] pulmonology, last seen on 03/28/23, switched mometasone / formoterol (Dulera) to budesonide / formoterol (Symbicort) -Questionable adherence to medications according to refill history, she is unaware of budesonide / formoterol (Symbicort) prescription -Reviewed her medications today and discussed about the importance of adherence; Advised to apple picking supervisor her budesonide / formoterol (Symbicort) and get her lab done prior to next appointment with spinning lathe operator automatic -Currently prescribed budesonide / formoterol (Symbicort) and tiotropium (Spiriva) as maintenance -Continue albuterol HFA prn as rescue -Treatment Hx: Previously on fluticasone (Flovent), which was changed to mometasone / formoterol (Dulera). Mometasone / formoterol (Dulera) was changed to budesonide / formoterol (Symbicort) most recently -Reviewed the importance of medication adherence and recommended to contact pharmacist and spinning lathe operator automatic for clarification of currently prescribed inhalers. Assessment & Plan (08/30/2023 2:37 PM EDT): -Followed by [facility] pulmonology, last seen on 03/28/23, switched mometasone / formoterol (Dulera) to budesonide / formoterol (Symbicort) -Questionable adherence to medications according to refill history, she is unaware of budesonide / formoterol (Symbicort) prescription -Reviewed her medications today and discussed about the importance of adherence; Advised to apple picking supervisor her budesonide / formoterol (Symbicort) and get her lab done prior to next appointment with spinning lathe operator automatic -Currently prescribed budesonide / formoterol (Symbicort) and tiotropium (Spiriva) as maintenance -Continue albuterol HFA prn as rescue -Treatment Hx: Previously on fluticasone (Flovent), which was changed to mometasone / formoterol (Dulera). Mometasone / formoterol (Dulera) was changed to budesonide / formoterol (Symbicort) most recently -Reviewed the importance of medication adherence and recommended to contact pharmacist and spinning lathe operator automatic for clarification of currently prescribed inhalers. Assessment & Plan (06/04/2023 5:58 AM EST): -Followed by [facility] pulmonology, last seen on 03/28/23, switched mometasone / formoterol (Dulera) to budesonide / formoterol (Symbicort) -Questionable adherence to medications according to refill history, she is unaware of budesonide / formoterol (Symbicort) prescription -Reviewed her medications today and discussed about the importance of adherence; Advised to apple picking supervisor her budesonide / formoterol (Symbicort) and get her lab done prior to next appointment with spinning lathe operator automatic -Currently prescribed budesonide / formoterol (Symbicort) and tiotropium (Spiriva) as maintenance -Continue albuterol HFA prn as rescue -Treatment Hx: Previously on fluticasone (Flovent), which was changed to mometasone / formoterol (Dulera). Mometasone / formoterol (Dulera) was changed to budesonide / formoterol (Symbicort) most recently -Reviewed the importance of medication adherence and recommended to contact pharmacist and spinning lathe operator automatic for clarification of currently prescribed inhalers. Assessment & Plan (04/02/2023 5:57 AM EST): -Followed by [facility] pulmonology, last seen on 11/30/21 -Questionable adherence to medications according to refill history -Reviewed her medications today and discussed about the importance of adherence -Continue mometasone / formoterol (Dulera) and tiotropium (Spiriva) as maintenance -Continue albuterol HFA prn as rescue -Urged to schedule appt with spinning lathe operator automatic; pt verbalized understanding Assessment & Plan (01/10/2023 2:06 PM EDT): -Followed by [facility] pulmonology, last seen on 11/30/21 -Questionable adherence to medications according to refill history -Reviewed her medications today and discussed about the importance of adherence -Continue Dulera and Spiriva as maintenance -Continue albuterol HFA prn as rescue -Consider referring to MTM -Urged to schedule appt with spinning lathe operator automatic; pt verbalized understanding Assessment & Plan (12/26/2022 5:30 AM EDT): -Followed by [facility] pulmonology, last seen on 11/30/21 -Questionable adherence to medications according to refill history -Reviewed her medications today and discussed about the importance of adherence -Continue Dulera and Spiriva as maintenance -Continue albuterol HFA prn as rescue -Consider referring to MTM -Urged to schedule appt with spinning lathe operator automatic; pt verbalized understanding Assessment & Plan (08/09/2022 5:23 AM EDT): -Followed by [facility] pulmonology, last seen on 11/30/21 -Reviewed her medications today and discussed about the importance of adherence -Continue Dulera and Spiriva as maintenance - Continue albuterol HFA prn as rescue -Consider referring to [facility] Assessment & Plan (05/14/2022 4:42 PM EST): -Followed by [facility] pulmonology, last seen on 11/30/21 -Mild wheezing today -Pt is being prescribed Dulera and Spiriva as maintanance, but patient is uncertain and medication refill history suggests questionable adherence. -Consider referring to [facility] Type 2 diabetes mellitus 09/20/2011 Assessment & Plan (02/18/2025 7:19 AM EST): -A1c 6.1% on 02/04/25, the same as 10/29/24 -Continue working on lifestyle modification. -Being prescribed Novolog 70/30 25 units qAM and 25 units qPM, advised to decrease to 24 units BID due to hypoglycemia -Continue Trulicity from 3.0 mg weekly; will change to tirzepatide -Previous Tx: metformin - discontinued when she had active Hep C per pt. -Last eye exam: 10/24/24 -Last foot exam: [...] active Hep C. -Check the satus of Siftyle Rachael -Last eye exam: 05/14/21 at [facility] eye care, no retinopathy -Last foot exam: 10/20/21 -Last microalbumin test: 10/20/21 UACR 12 Last lipid profile: 10/20/21 TC 197; 142; HDL 64; LDL 108. Last dental exam: Immunizations: up to date Knee pain 09/20/2011 Assessment & Plan (06/02/2023 9:41 AM EST): - Following with [facility] Pilot Boat Operator, last seen in Jan 2023 - XR on 12/16/22 showed : mild Osteoarthritis - Received intraarticular Euflexxa (hyaluronate derivative) Injection x 3 doses in 2022 - Continue current Tx plan per paintings restorer Assessment & Plan (04/02/2023 6:14 AM EST): - Following with [facility] Pilot Boat Operator, last seen in Jan 2023 - XR on 12/16/22 showed : mild Osteoarthritis - Received intraarticular Euflexxa (hyaluronate derivative) Injection x 3 doses in 2022 - Continue current Tx plan per paintings restorer Assessment & Plan (01/10/2023 5:41 PM EDT): - Following with [facility] Pilot Boat Operator, last seen on 12/16/22, started on Euflexxa injection - XR on 12/16/22 showed : mild Osteoarthritis - Currently receiving intraarticular Euflexxa (hyaluronate derivative) Injection - Continue current Tx plan per paintings restorer Resolved Problems Problem Noted Date Diagnosed Date Resolved Date Preop examination 06/02/2023 08/10/2023 Assessment & Plan (06/04/2023 6:07 AM EST): -Patient considered intermediate risk. -Procedure considered intermediate risk. -Patient has low-intermediate risk for cardiopulmonary complications. -As long as patient has good BG, BP and asthma control, pt should be able to proceed to arthroscopic procedure. -Insulin dose can be adjusted the night before. Gallbladder sludge 05/09/2022 Acute exacerbation of severe persistent extrinsic asthma 02/09/2017 05/14/2022 Hepatitis C 09/20/2011 04/02/2023 Encounters Date Type Department Care Team Description 02/22/2025 3:00 PM EST Office Visit [facility] [address] [place] [id number] [place], [facility] Dizziness; BPPV (benign paroxysmal positional vertigo), unspecified laterality 02/22/2025 Telephone [facility] [address] [place] [phone] Patito Wilhelm MD Nurse Triage 02/22/2025 Travel 02/05/2025 Refill [facility] [address], [place] [id number] Tosha Phillips RN Chronic back pain, unspecified back location, unspecified back pain laterality 02/05/2025 Telephone [facility] [address] [place] [id number] Patito Wilhelm MD Med Refill 02/04/2025 3:00 PM EDT Office Visit [address] [address] Patito Wilhelm MD Primary hypertension (Primary Dx); Dyslipidemia; Type 2 diabetes mellitus with both eyes affected by mild nonproliferative retinopathy without macular edema, with long-term current use of insulin (HCC); Fibromyalgia; Chronic bilateral low back pain, unspecified whether sciatica present; Trochanteric bursitis of right hip; Chronic right shoulder pain; Meralgia paresthetica, unspecified laterality; Lumbosacral radiculopathy; Moderate persistent asthma without complication; Sleep disturbance; Chronic left shoulder pain; Immunity status testing; Meralgia paresthetica, left; Chronic back pain, unspecified back location, unspecified back pain laterality; Postcholecystectomy syndrome; Irritable bowel syndrome, unspecified type; Dietary counseling; Exercise counseling; Class 1 obesity due to excess calories with serious comorbidity and body mass index (BMI) of 30.0 to 30.9 in adult; Type 2 diabetes mellitus with insulin therapy (HCC); Current use of insulin (CMS/HCC) (HCC); Abdominal mass of other site 02/04/2025 Travel 02/01/2025 Telephone [facility] [address] [place] [phone] Patito Wilhelm MD chart prep 01/26/2025 Refill [facility] [address] [place], [place] [phone] Patito Wilhelm MD 01/24/2025 Orders Only [facility] [address] [place] [phone] Patito Wilhelm MD Type 2 diabetes mellitus with both eyes affected by mild nonproliferative retinopathy without macular edema, with long-term current use of insulin ([facility]) (Primary Dx); Primary hypertension; Moderate persistent asthma without complication 01/23/2025 Travel 01/04/2025 Refill [facility] [address] [place] [address] Patito Wilhelm MD Type 2 diabetes mellitus with both eyes affected by mild nonproliferative retinopathy without macular edema, with long-term current use of insulin ([facility]/HCC) 01/04/2025 Refill [facility] [address], [place] [phone] Tosha Phillips RN Chronic back pain, unspecified back location, unspecified back pain laterality 01/04/2025 Telephone [facility] [address] [place], [place] [phone] Patito Wilhelm MD Med Refill 12/24/2024 Refill [facility] [address] [place], [place] [phone] Patito Wilhelm MD Moderate persistent asthma without complication 12/18/2024 Telephone [facility] [address] [place] [address] Patito Wilhelm MD Appointment Request 12/11/2024 11:00 AM EDT Office Visit [facility] [address] [place] [address] Kori Carrillo FNP Lumbosacral radiculopathy (Primary Dx); Chronic bilateral low back pain, unspecified whether sciatica present; Long-term current use of opiate analgesic 12/11/2024 Travel 12/10/2024 Refill [facility] [address] [place], [place] [phone] Tosha Phillips RN Chronic back pain, unspecified back location, unspecified back pain laterality 12/10/2024 Telephone [facility] [address] [place] [address] Patito Wilhelm MD Med Refill 12/03/2024 Telephone [facility] [address] [place] [address] Patito Wilhelm MD Medication Question 12/01/2024 Refill [facility] [address] [place], [place] [phone] Kori Carrillo FNP Type 2 diabetes mellitus with both eyes affected by mild nonproliferative retinopathy without macular edema, with long-term current use of insulin ([facility]) from Last 3 Months Immunizations Immunization Administration [...] 20 10/08/2022, 023 Pneumococcal Polysaccharide PPSV23 02/13/2002 RSV Bivalent 02/05/2025 TD (adult), 2 Lf tetanus tox oid, [...] Pressure 120/60 02/04/2025 3:07 PM EDT Pulse 80 02/22/2025 3:02 PM EST Temperature 36.6 C (97.8 F) 02/22/2025 3:02 PM EST Respiratory Rate 18 02/22/2025 3:02 PM EST Oxygen Saturation 97% 02/22/2025 3:02 PM EST room air Inhaled Oxygen Concentration - - Weight 67.9 kg (149 lb 12.8 oz) 02/04/2025 3:07 PM EDT Height 149.9 cm (4' 11 ) 10/29/2024 3:05 PM EDT Body Mass Index 30.26 10/29/2024 3:05 PM EDT Plan of Treatment Upcoming Encounters Date Type Department Care Team (Late st Contact Info) Description 03/12/2025 11:00 AM EST Office Visit [facility] [address] [place] [phone] 05/10/2025 1:00 PM EST Medication Management [facility] [address] [place] [phone] Wilber Christie, PharmD [address] [place] [address] Health Maintenance Due Date Last Done Comments CT Colonography 1965 FIT DNA/Cologuard 1965 FIT 1965 FOBT 1965 HIV Screening 1965 Sigmoidoscopy 1965 Pap Smear 1986 HPV/Cotest 1995 Diabetes: Urine Protein Screening 12/10/2023 12/09/2022, 10/20/2021, 01/24/2020 COVID-19 Vaccine ( season) 2024 03/21/2023, 01/19/2022, 09/25/2021, Additional history exists Alcohol/Substance Use Screening 03/27/2025 [...] exists Disability Screening 10/29/2025 10/29/2024 Tobacco Screening 02/24/2026 02/24/2025 Mammogram 03/27/2026 03/27/2024, 12/08/2022, 03/19/2022, Additional history exists DTaP/Tdap/Td Vaccines (3 - Td or Tdap) 01/26/2033 01/26/2023, 11/15/2012, 01/14/2005 Colonoscopy 10/18/2033 10/19/2023, 10/19/2023 Colorectal Cancer Screening 10/18/2033 Zoster Vaccines Completed 01/17/2020, 05/18/2019 Pneumococcal Vaccine: 50+ Years Completed 10/08/2022, 05/10/2022, 02/13/2002 Influenza Vaccine Completed 01/23/2025, , 03/08/2023, Additional history exists RSV Patients and Patients Aged 60 years or older Completed 02/05/2025 Cervical Cancer Screening Discontinued HIB Vaccines Aged [...] Name Priority Date/Time Associated Diagnosis Comments POCT GLUCOSE Routine 02/22/2025 3:[address] ABDOMEN PELVIS WO CONTRAST Routine 02/16/2025 10:03 AM EDT POCT GLYCATED HEMOGLOBIN, TOTAL Routine 02/04/2025 3:10 PM EDT Type 2 diabetes mellitus with both eyes affected by mild nonproliferative retinopathy without macular edema, with long-term current use of insulin ([facility]) POCT GLUCOSE Routine 02/04/2025 3:09 PM EDT Type 2 diabetes mellitus with both eyes affected by mild nonproliferative retinopathy without macular edema, with long-term current use of insulin ([facility]) POCT VINICIO-14 URINE DRUG SCREEN Routine 12/11/2024 11:29 AM EDT Chronic bilateral low back pain, unspecified whether sciatica present LIPID PANEL, STANDARD Routine 07/06/2024 11:02 AM EDT BI MAMMOGRAM SCREENING TOMOSYNTHESIS BILATERAL Routine 03/27/2024 1:50 PM EST HM COLONOSCOPY Routine 10/19/2023 ALBUMIN, RANDOM URINE W/CREATININE Routine 12/09/2022 1:02 PM EDT Type 2 diabetes mellitus with diabetic polyneuropathy, with long-term current use of insulin ([facility]/HCC) from Last 3 Months or Most Recently Relevant to Health Maintenance Results * POCT Glucose (02/22/2025 3:13 PM EST) Only the most recent of2 resultswithin the time period is included. Glucose Blood, POC 197 60 - 200 mg/dL Blood Capillary blood specimen / Unknown 02/22/2025 3:13 PM EST [facility] CONSTRUCTION SECRETARY POINT OF CARE TEST ENTER/EDIT ORDERABLES Final Result * CT Abdomen Pelvis w/o Contrast (02/16/2025 10:03 AM EDT) Anatomical Region Laterality Modality Body, Pelvis, Abdomen Computed T omography 02/16/2025 10:0 3 AM EDT Narrative 02/18/2025 10:12 AM EST [place] [address] CT Scan Report Signed Patient: Ameena Tejada MR#: [id number] 33 : 1965 Acct:[id number] Age/Sex: 59 / F ADM Date: 02/16/25 Loc: HO.CT Attending Dr: Marcell Saez MD Ordering Physician: Marcell Saez MD Date of Service: 02/16/25 Procedure(s): CT abdomen pelvis wo IV con Accession Number(s): [id number] cc: Marcell Saez MD; Patito Wilhelm MD Report Number: [id number]: Total DLP = 458.00 mGy-cm Reason for [...] by: Reyes Rueda MD 02/18/2025 10:09 AM [facility] Dictated By: Reyes Rueda MD Signed By: <Electronically signed by Reyes Rueda MD in OV> 02/18/25 1009 DD/ 1003 TD/TT: 02/16/25 1018 Automotive Light Mechanic: ALEXANDRA Procedure Note Donotuseinterpreter, Image - 02/18/[address] [place] [address] [address] Scan Report Signed Patient: King Tejada#: [id number] 33 : 1965Acct:[id number] Age/Sex: 59 / FADM Date: 02/16/25 Loc: HO.CT Attending Dr: Marcell Saez MD Ordering Physician: Marcell Saez MD Date of Service: 02/16/25 Procedure(s): CT abdomen pelvis wo IV con Accession Number(s): [id number] cc: Marcell Saez MD; Patito Wilhelm MD Report Number: [id number]: Total DLP = 458.00 mGy-cm Reason for [...] by: Reyes Rueda MD 02/18/2025 10:09 AM [facility] Dictated By: Reyes Rueda MD Signed By: <Electronically signed by Reyes Rueda MD in OV> 02/18/25 1009 DD/ 1003 TD/TT: 02/16/25 1018 Automotive Light Mechanic: ALEXANDRA [facility] External Provider IMG CT PROCEDURES Edited Result - Final * (ABNORMAL) POCT Hgb A1c (02/04/2025 3:10 PM EDT) Hemoglobin A1C 6.1(A) 4.0 - 5.7 % QC Media Lot # [id number] Lot# Expiration Date [id number] Blood 02/04/2025 3:10 PM EDT Patito Wilhelm MD POINT OF CARE TEST [...] - 12/11/2024 11:29 AM EDT .UTOX cup Lot#[id number] Exp. 01/22/26 Internal Pass Control Kori BRUNO POINT OF CARE TEST ENTER/EDIT ORDERABLES Final Result * (ABNORMAL) Lipid Panel, Standard (07/06/2024 11:02 AM EDT) Triglycerides 143 <150 mg/dL [facility] Comment:Desirable Triglyceri de: less than 150 mg/dLBorderline High Triglyceride 150-199 mg/dLHigh Triglyceride: 200-499 mg/dLVery High Triglyceride: greater than or equal to 5OO mg/dL Cholesterol 171 <200 mg/dL [facility] Comment:Desirable Cholestero l: less than 200 mg/dLBorderline High Cholesterol: 200-239 mg/dLHigh Cholesterol: greater than 239 mg/dL LDL Cholesterol Calculated 100(H) <100 mg/dL [facility] Comment:Desirable LDL: less than 100 mg/dLNear Optimal/Above Optimal LDL: 110- 129 mg/dLBorderline High LDL: 130-159 mg/dLHigh LDL: 160-189 mg/dLVery High LDL: greater than or equal to 190 mg/dL HDL Cholesterol 43 >40 mg/dL [facility] Comment:Desirable HDL: great er than 40 mg/dL Note: This HDL assay may give artificially low results in patients with liver disease. 07/06/2024 11:0 2 AM EDT 07/06/2024 1:13 PM EDT Patito Wilhelm MD LAB BLOOD ORDERABLES Final Resul t [facility] [address] [place] [phone] * BI Mammogram Screening Tomosynthesis Bilateral (03/27/2024 1:50 PM EST) Anatomical Region Laterality Modality Breast Bilateral Mammography 03/27/2024 1:50 PM EST Narrative 04/02/2024 3:31 PM EST [address] [place] [address] Mammography Report Signed Patient: Ameena Tejada MR#: [id number] 33 : 1965 Acct:[id number] Age/Sex: 59 / F ADM Date: 03/27/24 Loc: HO.MAMMO Attending Dr: Patito Wilhelm MD Ordering Physician: Patito Wilhelm MD Results: 2Benign F indings Date of Service: 03/27/24 Follow Up: 1 Year From Orig inal Mammogram Procedure(s): MM tomosynthesis screening BI Accession Number(s): [id number] cc: Patito Wilhelm MD EXAMINATION: MM SCREENING [...] by: Mare Cardona DO 04/02/2024 03:28 PM EST Dictated By: Mare Cardona DO Signed By: <Electronically signed by Mare Cardona DO in OV> 04/02/24 1528 DD/ 1350 TD/TT: 03/27/24 1405 Automotive Light Mechanic: Procedure Note Donotuseinterpreter, Image - 04/02/[address] [place] [address] Mammography Report Signed Patient: King Tejada#: [id number] 33 : 1965Acct:[id number] Age/Sex: 59 / FADM Date: 03/27/24 Loc: HO.MAMMO Attending Dr: Patito Wilhelm MD Ordering Physician: Patito Wilhelm MDResults: 2Benign F indings Date of Service: 03/27/24Follow Up: 1 Year From Orig ina Mammogram Procedure(s): MM tomosynthesis screening BI Accession Number(s): [id number] cc: Patito Wilhelm MD EXAMINATION: MM SCREENING [...] by: Mare Cardona DO 04/02/2024 03:28 PM [facility] Dictated By: Mare Cardona DO Signed By: <Electronically signed by Mare Cardona DO in OV> 04/02/24 1528 DD/ 1350 TD/TT: 03/27/24 1405 Automotive Light Mechanic: Patito Wilhelm MD IM BI PROCEDURES Edited Result - Final * Hm Colonoscopy (10/19/2023) Colonoscopy Normal Normal Narrative Christine Ramirez - 10/19/2023 Recommended 10 year follow up . see external hospital admission note on 10/19/2023 Historical Provider HEALTH MAINTENANCE Final Result * Albumin, Random Urine W/Creatinine (12/09/2022 1:02 PM EDT) Creatinine, Urine 170.12 mg/dL [facility] Microalbumin Urine 15.0 mg/L [facility] Microalbum Creatinine Ratio Ur 8.8 <30 ug/mg cr [facility] Comment:Albumin/Creatinine R atio Reference Ranges: Normal: < 30 ug/mg creatinine Microalbuminuria: 30 - 300 ug/mg creatinineClinical Albuminuria: > 300 ug/mg creatinine Urine 12/09/2022 1:02 PM EDT 12/09/2022 3:56 PM EDT Patito Wilhelm MD LAB URINE ORDERABLES Final Resul t Performing Organization Address City/State/[facility] Co de Phone Number [facility] [address] [place] [phone] from Last 3 Months or Most Recently Relevant to Health Maintenance Insurance [id number] < 65 JOSE CALVERT [id number] Care Teams Dehydrator Relationship Specialty Start Date End Date Patito Wilhelm MD [address] [place] [address] PCP - General Family Medicine 11/13/18 Wilber Christie, PennyD [address] [place] [address] Pharmacist Internal Medicine 01/28/23
--- OUTSIDE RECORDS SUMMARY | 2025-03-01 07:46 | XMS_ITS | Encounter Summary ---
Author Organization [employer] Address [address] [facility] [address] [place] [address] Care Team Providers Care Cis Coordinator Name Role Phone Patito Wilhelm MD Primary Care Provider [phone] Wilber Christie PharmD Unavailable Reason for Visit * Reason Onset Date Comments triage 06/22/2022 Encounter Details Date Type Department Care Team ([facility] st Contact Info) Description 06/22/2022 Telephone [facility] [address] [place], [place] [phone] Patito Wilhelm MD [address] [place], [place] [phone] triage Social History Tobacco Use Types Packs/Day [...] [facility] [address] [place] [address] [phone] 05/10/2025 1:00 PM EST Medication Management [facility] [address] [place] [address] [phone] Wilber Christie, PharmD [address] [place] [address] documented as of this encounter Visit Diagnoses Not on filedocumented in this encounter Care Teams Cis Coordinator Relationship Specialty Start Date End Date Patito Wilhelm MD [address] [place] [address] PCP - General Family Medicine 11/13/18 Wilber Christie, Kaia [address] [place] [phone] Pharmacist Internal Medicine 01/28/23 documented as of this encounter
--- NOTE | 2025-03-01 09:49 | HO.ANESPROP2 ---
Documented by User: Lety Shafer NP 03/04/25 07:59 HPI - Anesthesia Eval Consult details Narrative: 59yo F for Hernia Incisional Reducible s/p same 2023 with GA-LMA 4 s/p shoulder scope 06/2024 with GA-ETT 7 and block BMI 44.6 Anesthesia Pre-Procedure Meds Is the patient on any of the following meds?: GLP1/DPP4 PMFSH Active Problems Active Problems: All Active Problems Incisional hernia (Acute) Right sided abdominal pain (Acute) Impingement syndrome of left shoulder (Acute) Left shoulder pain (Acute) Impingement of right shoulder (Acute) Right shoulder pain (Acute) Slowing of urinary stream (Acute) Sensation of pressure in bladder area (Acute) Patellofemoral arthritis of left knee (Acute) Subcutaneous mass of left foot (Acute) Past Medical History Medical History Incisional hernia Right sided abdominal pain NIKI (obstructive sleep apnea) Bronchitis Lumbar radiculopathy Obesity Macromastia Meralgia paraesthetica Insomnia Palpitations Arthritis Back pain Diabetes History of abdominal hernia GERD (gastroesophageal reflux disease) Irritable bowel syndrome Interstitial cystitis Jaundice Hepatitis C Depression Neuropathy Numbness History of headache Vertigo Asthma Elevated cholesterol HTN (hypertension) Subcutaneous mass of left foot Calcaneal spur, unspecified foot Hernia Family History Family History Father Gastric cancer Mother Coronary disease Family history of problems with anesthesia: No Surgical History Surgical History Hx of arthroscopy of shoulder Hx of hysterectomy Hx of elbow surgery Hx of removal of cyst Hx of foot surgery Hx of section History of bladder surgery H/O colonoscopy History of cholecystectomy History of carpal tunnel surgery of right wrist History of carpal tunnel surgery of left wrist H/O tubal ligation History of repair of rotator cuff History of liver biopsy History of Problems with Anesthesia: No Social History Social History Are you a primary rn care manager to a significant other at home: No Do you presently have visiting nurse or other home services: No Alcohol intake: never Patient Tobacco Use Status: Never used Tobacco Have you been hit, kicked, punched, or otherwise hurt by someone within the past year? If so, by whom?: No Are you DNR?: No Advance Directives: No Advance Directives Information Provided: Yes Current occupational status: disabled Current occupation: rt handed Meds Allergies Allergy/AdvReac Type Severity Reaction Status Date / Time rosiglitazone (Avandia) Allergy Severe rash/hepatitis Verified 02/27/25 11:03 C cyclobenzaprine (From Allergy Intermediate HIVES Verified 02/27/25 11:03 FLEXERIL) latex (LATEX) Allergy Intermediate RASH Verified 02/27/25 11:03 azithromycin (From Zithromax) Allergy Mild SWELLING Verified 02/27/25 11:03 glipizide (From Glucotrol) Allergy Mild SWELLING Verified 02/27/25 11:03 levofloxacin (From Levaquin) Allergy Mild leg Verified 02/27/25 11:03 swelling aspirin (Aspirin) Allergy Unknown reaction Verified 02/27/25 11:03 unknown-was years ago Flexeril Allergy Severe Rash Uncoded 02/27/25 11:03 Home Medications ?Medication ?Instructions ?Recorded ?Confirmed ?Last Taken ?Type cholecalciferol (vitamin D3) 50 50 mcg PO DAILY 02/18/22 03/05/25 03/04/25 History mcg (2,000 unit) capsule omeprazole 20 mg capsule,delayed 20 mg PO DAILY 02/18/22 03/05/25 03/04/25 History release vitamin B complex (Vitamins B 1 tab PO DAILY 02/18/22 03/05/25 03/04/25 History Complex tablet) nitroglycerin 0.4 mg sublingual 0.4 mg sublingual Q5M PRN Chest 03/31/22 03/05/25 Unknown History tablet Pain dicyclomine 10 mg capsule 10 - 20 mg PO Q6H PRN cramps 12/21/22 03/05/25 Unknown History naloxone 4 mg/actuation nasal spray 1 spray intranasal DAILY 12/21/22 03/05/25 Unknown History pregabalin 75 mg capsule 75 mg PO BID 12/21/22 03/05/25 03/04/25 History azelastine 137 mcg (0.1 %) nasal 1 spray intranasal DAILY PRN 06/13/23 03/05/25 03/04/25 History spray Allergy Symptoms budesonide-formoterol HFA 160 2 puff inhalation BID 06/13/23 03/05/25 03/04/25 History mcg-4.5 mcg/actuation aerosol inhaler (Symbicort) insulin aspar prot-insulin aspart 25 unit subcut BID 06/13/23 03/05/25 03/04/25 History 100 unit/mL (70-30) subcutaneous pen (Novolog Mix 70-30FlexPen U-100) montelukast 10 mg tablet 10 mg PO QPM 06/13/23 03/05/25 03/04/25 History metoprolol succinate 25 mg 75 mg PO BEDTIME 09/08/23 03/05/25 03/04/25 History tablet,extended release 24 hr semaglutide 2 mg/dose (8 mg/3 mL) 2 mg subcut QWEEK 03/21/24 03/05/25 06/18/24 History subcutaneous pen injector (Ozempic) valsartan 320 1 tab PO DAILY 03/21/24 03/05/25 03/04/25 History mg-hydrochlorothiazide 25 mg tablet albuterol sulfate 90 mcg/actuation 2 puff inhalation Q4-6H PRN 06/12/24 03/05/25 03/05/25 History aerosol inhaler Shortness Of Breath Or Wheezing oxycodone-acetaminophen 5 mg-325 1 tab PO Q4-6H PRN Pain (Scale 03/05/25 03/05/25 03/04/25 History mg tablet (Percocet) Score 4-6) Exam Pertinent Lab Results Pertinent Lab Results: Laboratory Tests 06/29/24 07/06/24 09:42 11:02 WBC 7.8 Hgb 11.3 L Hct 32.7 L Plt Count 225 Sodium 141 Potassium 3.5 Chloride 108 Carbon Dioxide 26 BUN 11 Creatinine 0.66 Narrative Narrative: EKG 06/2024 Vent. Rate : 63 BPM Atrial Rate : 63 BPM P-R Int : 122 ms QRS Dur : 70 ms QT Int : 428 ms P-R-T Axes : 43 23 43 degrees QTcB Int : 437 ms Normal sinus rhythm Normal ECG When compared with ECG of 10-Jun-2023 14:46, No significant change was found Assessment and Plan Assessment Anesthesia Assessment: Chart Reviewed Final Anesthetic Review Family History of Problems with Anesthesia: No History of Problems with Anesthesia: No Documented by User: Mary Negron MD 03/05/25 12:21 PMF Past Medical History Medical History Incisional hernia Right sided abdominal pain NIKI (obstructive sleep apnea) Bronchitis Lumbar radiculopathy Obesity Macromastia Meralgia paraesthetica Insomnia Palpitations Arthritis Back pain Diabetes History of abdominal hernia GERD (gastroesophageal reflux disease) Irritable bowel syndrome Interstitial cystitis Jaundice Hepatitis C Depression Neuropathy Numbness History of headache Vertigo Asthma Elevated cholesterol HTN (hypertension) Subcutaneous mass of left foot Calcaneal spur, unspecified foot Hernia Family History Family History Father Gastric cancer Mother Coronary disease Surgical History Surgical History Hx of arthroscopy of shoulder Hx of hysterectomy Hx of elbow surgery Hx of removal of cyst Hx of foot surgery Hx of section History of bladder surgery H/O colonoscopy History of cholecystectomy History of carpal tunnel surgery of right wrist History of carpal tunnel surgery of left wrist H/O tubal ligation History of repair of rotator cuff History of liver biopsy Social History Social History Are you a primary rn care manager to a significant other at home: No Do you presently have visiting nurse or other home services: No Alcohol intake: never Patient Tobacco Use Status: Never used Tobacco Have you been hit, kicked, punched, or otherwise hurt by someone within the past year? If so, by whom?: No Are you DNR?: No Advance Directives: No Advance Directives Information Provided: Yes Current occupational status: disabled Current occupation: rt handed Meds Allergies Allergy/AdvReac Type Severity Reaction Status Date / Time rosiglitazone (Avandia) Allergy Severe rash/hepatitis Verified 02/27/25 11:03 C cyclobenzaprine (From Allergy Intermediate HIVES Verified 02/27/25 11:03 FLEXERIL) latex (LATEX) Allergy Intermediate RASH Verified 02/27/25 11:03 azithromycin (From Zithromax) Allergy Mild SWELLING Verified 02/27/25 11:03 glipizide (From Glucotrol) Allergy Mild SWELLING Verified 02/27/25 11:03 levofloxacin (From Levaquin) Allergy Mild leg Verified 02/27/25 11:03 swelling aspirin (Aspirin) Allergy Unknown reaction Verified 02/27/25 11:03 unknown-was years ago Flexeril Allergy Severe Rash Uncoded 02/27/25 11:03 Home Medications ?Medication ?Instructions ?Recorded ?Confirmed ?Last Taken ?Type cholecalciferol (vitamin D3) 50 50 mcg PO DAILY 02/18/22 03/05/25 03/04/25 History mcg (2,000 unit) capsule omeprazole 20 mg capsule,delayed 20 mg PO DAILY 02/18/22 03/05/25 03/04/25 History release vitamin B complex (Vitamins B 1 tab PO DAILY 02/18/22 03/05/25 03/04/25 History Complex tablet) nitroglycerin 0.4 mg sublingual 0.4 mg sublingual Q5M PRN Chest 03/31/22 03/05/25 Unknown History tablet Pain dicyclomine 10 mg capsule 10 - 20 mg PO Q6H PRN cramps 12/21/22 03/05/25 Unknown History naloxone 4 mg/actuation nasal spray 1 spray intranasal DAILY 12/21/22 03/05/25 Unknown History pregabalin 75 mg capsule 75 mg PO BID 12/21/22 03/05/25 03/04/25 History azelastine 137 mcg (0.1 %) nasal 1 spray intranasal DAILY PRN 06/13/23 03/05/25 03/04/25 History spray Allergy Symptoms budesonide-formoterol HFA 160 2 puff inhalation BID 06/13/23 03/05/25 03/04/25 History mcg-4.5 mcg/actuation aerosol inhaler (Symbicort) insulin aspar prot-insulin aspart 25 unit subcut BID 06/13/23 03/05/25 03/04/25 History 100 unit/mL (70-30) subcutaneous pen (Novolog Mix 70-30FlexPen U-100) montelukast 10 mg tablet 10 mg PO QPM 06/13/23 03/05/25 03/04/25 History metoprolol succinate 25 mg 75 mg PO BEDTIME 09/08/23 03/05/25 03/04/25 History tablet,extended release 24 hr semaglutide 2 mg/dose (8 mg/3 mL) 2 mg subcut QWEEK 03/21/24 03/05/25 06/18/24 History subcutaneous pen injector (Ozempic) valsartan 320 1 tab PO DAILY 03/21/24 03/05/25 03/04/25 History mg-hydrochlorothiazide 25 mg tablet albuterol sulfate 90 mcg/actuation 2 puff inhalation Q4-6H PRN 06/12/24 03/05/25 03/05/25 History aerosol inhaler Shortness Of Breath Or Wheezing oxycodone-acetaminophen 5 mg-325 1 tab PO Q4-6H PRN Pain (Scale 03/05/25 03/05/25 03/04/25 History mg tablet (Percocet) Score 4-6) Exam Airway Mallampati Class: II TM Dist: >3cm Neck ROM: Full Heart: rrr Lungs: cta Assessment and Plan Assessment Anesthesia Assessment: Anesthesia Plan Discussed Final Anesthetic Review NPO: Yes ASA Class: III Final Preanesthetic Review: No Changes in Pt Med Stat, Meds/Allgs Chart Reviewed, Consent Obtained/Reviewed and Anes Risks/Benef Reviewed Patient Risk: Intermediate Procedure Risk: Intermediate Anesthetic Plan Anesthetic Plan: GA and Agree w/ Assess. and Plan Disposition: Standard PACU
[2025-03-05 05:56] VITALS: BMI 30.1
[2025-03-05 11:40] VITALS: BP 155/77; PULSE 72; RESP 18; TEMP 36.9; O2SAT 95; BMI 29.8
[2025-03-05 12:04] LABS: Glucose, Whole Blood 132 mg/dL (60-115)
[2025-03-05] MEDS: Lactated Ringers 1,000 ML 100 ML IVCONT (12:09)
--- NOTE | 2025-03-05 12:22 | MHC.SHP ---
Pre-Procedural Eval Section A - 24 Hr Update-Section A only Date of Service: 03/05/25 The patient is an INPATIENT: No Changes since office visit: No Cold of Flu in the past 2 weeks, No New Medical Problems, No Changes in Medication and No Patient answered all questions The patient has been examined within 24 hours of the surgical procedure. The History & Physical has been completed within 30 days and I have reviewed it.: Yes Section B - Complete if H&P > 30 days Chief Complaint: Incisional hernia without obstruction or gangrene Allergies: Allergies Allergy/AdvReac Type Severity Reaction Status Date / Time rosiglitazone (Avandia) Allergy Severe rash/hepatitis Verified 02/27/25 11:03 C cyclobenzaprine (From Allergy Intermediate HIVES Verified 02/27/25 11:03 FLEXERIL) latex (LATEX) Allergy Intermediate RASH Verified 02/27/25 11:03 azithromycin (From Zithromax) Allergy Mild SWELLING Verified 02/27/25 11:03 glipizide (From Glucotrol) Allergy Mild SWELLING Verified 02/27/25 11:03 levofloxacin (From Levaquin) Allergy Mild leg Verified 02/27/25 11:03 swelling aspirin (Aspirin) Allergy Unknown reaction Verified 02/27/25 11:03 unknown-was years ago Flexeril Allergy Severe Rash Uncoded 02/27/25 11:03 Plan I have reviewed the history and physical and performed a pertinent physical examination on my patient. No changes have occurred unless specified. Time Spent With Patient Time: Total time managing care of this patient today ____ minutes.
--- NOTE | 2025-03-05 13:40 | P.OP_ITS ---
Operative Note Operative Note Date of Service: 03/05/25 Narrative: Preop diagnosis: Incisional hernia, lower abdomen Postop diagnosis: The same Procedure: Repair of incisional with small Ventralex mesh Surgeon: Marcell Saez MD real estate executive assistant: JOSE Barry The patient is a 59 year old female who has had this pain on the lower abdomen under area with a mass. Her CAT scan does reveal a fat containing hernia in the midline likely from her previous with a Pfannenstiel incision She understood the technique of the planned procedure. She was aware of the risks, benefits, and alternatives She was brought to the operating room. She was placed supine under general anesthesia via endotracheal tube. The abdomen was prepped and draped in the usual sterile fashion. A surgical time-out was done. The patient received cefazolin 2 g IV preoperatively I infiltrated the planned line of incision with lidocaine 1%. I made a short low midline incision with a blade 15. This carried down with electrocautery through the full-thickness of the skin and subcutaneous fat It is noted the patient is a very thick subcutaneous fat because of the pannus. We had to do a lot of dissection electrocautery as well as with Metzenbaum scissors to define the fascia. By doing so, we are eventually able to see a fat containing hernia in the midline. We the hernia contents off of the fascial edges using sharp dissection with the Metzenbaum scissors as well as electrocautery. We continued slowly until we are able to completely reduce the hernia contents. By doing so we are able to define the fascial defect. The fascial defect was about 1.8 cm. The underside of the fascial defect appeared free of adhesion. I therefore chose a small-sized Ventralex mesh. I positioned in the mesh under near the fascial defect and flattened this. I secured the Prolene straps of the mesh on both sides with Prolene 2 sutures to the fascial defect. I trimmed the Prolene straps flush fascial level I closed the fascial defect with a [id number] Maxon 1 stitch We irrigated. We reapposed the thick subcutaneous tissue with Polysorb 3-0 simple interrupted sutures. Skin closure was achieved with Polysorb 4-0 subcuticular running sutures. The incision was infiltrated with Marcaine 0.5% for postop analgesia. Dressings were applied. The procedure was completed The patient tolerated the procedure well. There were no immediate complications. Initial and final counts of sponges and instruments were correct. Estimated blood loss was less than 25 cc. The patient was extubated without difficulty and transferred to the recovery room with stable vital signs.
[2025-03-05 13:55] VITALS: BP 175/91; PULSE 75; RESP 16; TEMP 36.1; O2SAT 100
[2025-03-05 14:00] VITALS: BP 172/85; PULSE 74; RESP 14; RESP 16; O2SAT 100
[2025-03-05 14:05] VITALS: BP 167/87; PULSE 74; RESP 16; O2SAT 100
[2025-03-05 14:10] VITALS: BP 170/90; PULSE 71; RESP 16; O2SAT 98
[2025-03-05 14:25] VITALS: BP 158/79; PULSE 74; RESP 13; TEMP 36.7; O2SAT 98
[2025-03-05] MEDS: oxyCODONE HCl Immed Release 5 MG TABLET PO (14:37)
== END 2025-03-05 15:01 | disposition home or self-care (01) ==
PROVIDERS: PCP Family Medicine; Visit Provider Surgery
PROC: (CPT 49591; principal; 2025-03-05 13:40)
DX: K43.2 Incisional hernia without obstruction or gangrene (principal); E65 Localized adiposity; Z98.891 History of uterine scar from previous surgery; G47.33 Obstructive sleep apnea (adult) (pediatric); G62.9 Polyneuropathy, unspecified; I10 Essential (primary) hypertension; E11.9 Type 2 diabetes mellitus without complications; G89.29 Other chronic pain; M54.16 Radiculopathy, lumbar region; R00.2 Palpitations; M54.9 Dorsalgia, unspecified; R26.2 Difficulty in walking, not elsewhere classified; R17 Unspecified jaundice; Z79.51 Long term (current) use of inhaled steroids; Z79.4 Long term (current) use of insulin; Z79.85 Long-term (current) use of injectable non-insulin antidiabetic drugs; Z79.899 Other long term (current) drug therapy; Z99.89 Dependence on other enabling machines and devices; Z91.040 Latex allergy status; Z88.1 Allergy status to other antibiotic agents; Z88.8 Allergy status to other drugs, medicaments and biological substances; Z88.6 Allergy status to analgesic agent; Z98.890 Other specified postprocedural states
CPT/HCPCS: 49591; 82947; C1781; J0131; J0690; J1100; J1885; J2003; J2250; J2405; J2704; J2795; J3010

== ENCOUNTER → 2025-03-05 11:24 | Outpatient (BNV) | payer OTHER, SELFPAY | PROVIDERS: PCP Family Medicine; Visit Provider Surgery | DX: K43.2 Incisional hernia without obstruction or gangrene (principal) | CPT/HCPCS: 49591 ==

== ENCOUNTER 2025-03-20 11:17 | Outpatient (AMB) | payer OTHER, SELFPAY ==
--- NOTE | 2025-03-20 11:29 | MHC.OFFVIS ---
Vital Signs 03/20/25 11:36 Height 5 ft Weight 153 lb 6 oz BMI 30.0 BP 144/65 H Blood Pressure Location Lt brachial Position Sitting Pulse 86 Intake Visit Reasons: S/P incisional hernia Intake Note: Patient is seen in office for post op assessment post incisional hernia repair. Pt c/o: denies any concerns surgery:03/05/25 () Bow String Maker Required: No Accompanied by: Self / Same As Patient Allergies rosiglitazone (Avandia) Allergy (Severe, Verified 03/20/25 11:56) rash/hepatitis C cyclobenzaprine (From FLEXERIL) Allergy (Intermediate, Verified 03/20/25 11:56) HIVES latex (LATEX) Allergy (Intermediate, Verified 03/20/25 11:56) RASH azithromycin (From Zithromax) Allergy (Mild, Verified 03/20/25 11:56) SWELLING glipizide (From Glucotrol) Allergy (Mild, Verified 03/20/25 11:56) SWELLING levofloxacin (From Levaquin) Allergy (Mild, Verified 03/20/25 11:56) leg swelling aspirin (Aspirin) Allergy (Unknown, Verified 03/20/25 11:56) reaction unknown-was years ago Flexeril Allergy (Severe, Uncoded 03/20/25 11:56) Rash HPI HPI S/P incisional hernia: Details: Reports she is doing well, no concerns. Some occasional pain at the incision site. Tolerating diet, denies issues with bowel movements. Denies nausea vomiting. Denies fevers or chills. Denies drainage from incision sites [facility] Medical History (Updated 03/20/25 @ 13:53 by Pravin Guardado MD) Incisional hernia Right sided abdominal pain NIKI (obstructive sleep apnea) Bronchitis Lumbar radiculopathy Obesity Macromastia Meralgia paraesthetica Insomnia Palpitations Arthritis Back pain Diabetes History of abdominal hernia GERD (gastroesophageal reflux disease) Irritable bowel syndrome Interstitial cystitis Jaundice Hepatitis C Depression Neuropathy Numbness History of headache Vertigo Asthma Elevated cholesterol HTN (hypertension) Subcutaneous mass of left foot Calcaneal spur, unspecified foot Hernia Surgical History (Updated 03/26/25 @ 10:40 by Ravindra Baxter PA-C) History of incisional hernia repair (03/05/25) Hx of arthroscopy of shoulder Hx of hysterectomy Hx of elbow surgery Hx of removal of cyst Hx of foot surgery Hx of section History of bladder surgery H/O colonoscopy History of cholecystectomy History of carpal tunnel surgery of right wrist History of carpal tunnel surgery of left wrist H/O tubal ligation History of repair of rotator cuff History of liver biopsy Family History Father Gastric cancer Mother Coronary disease Social History Are you a primary intensive care anaesthetist to a significant other at home: No Do you presently have visiting nurse or other home services: No Alcohol intake: never Comment: medicated Patient Tobacco Use Status: Never used Tobacco Current occupational status: disabled Current occupation: rt handed Physical Exam Vital Signs: Last Vital Signs Pulse 86 03/20/25 11:36 BP 144/65 H 03/20/25 11:36 BMI result Body Mass Index 30.0 Const General: comfortable and no acute distress Orientation/consciousness: patient oriented x3 GI Other: Incision site, clean dry intact, no palpable fluid collection, no surrounding erythema, nontender. Neuro General: patient oriented x3 Assessment & Plan Assessment & Plan (1) History of incisional hernia repair: Onset Date: 03/05/25 Comment: Marcell Saez MD Code(s): Z98.890 - Other specified postprocedural states; Z87.19 - Personal history of other diseases of the digestive system Category: Medical Plan 60-year-old female s/p Incisional hernia repair with Ventralex mesh performed by Dr. Saez on 03/05/25 return to the office for follow-up. States she is doing well, no concerns. Occasional pain related to the injured site with movement. Should this appropriate this plan should improve over the next 1-2 months. Her appetite and bowel function at baseline. Denying nausea vomiting. Denies fevers or chills. On exam abdomen soft benign, incision site appears to be healing well, no evidence of infection at this time. We will continue with activity restrictions no heavy lifting greater than 15 20 lb for at least the next 2 weeks. She return in 2-3 weeks for re-evaluation. She can call sooner with any concerns prior to that appointment. Coding Level of Care Code Est Pt Level 3 (30852) Diagnoses History of incisional hernia repair Z98.890; Z87.19
[2025-03-20 11:36] VITALS: BP 144/65; PULSE 86
== END 2025-03-20 11:44 | disposition home or self-care (01) ==
LOC: HO.HGS 11:19
PROVIDERS: PCP Family Medicine
DX: Z98.890 Other specified postprocedural states (principal); Z87.19 Personal history of other diseases of the digestive system
CPT/HCPCS: 99213

== ENCOUNTER 2025-03-20 11:47 | Outpatient (AMB) | payer OTHER, SELFPAY ==
[2025-03-20 11:56] VITALS: BMI 29.9
--- NOTE | 2025-03-20 11:56 | A.OFFVIS_ITS ---
Vital Signs 03/20/25 11:56 Height 5 ft Weight 153 lb BMI 29.9 Intake Visit Reasons: Right knee pain and giving way Intake Note: Ameena is a 60 year old female who presents with complaints of progressively worsening right knee pain and giving way. The patient states that she injured her knee approximately 1 year ago. She twisted her knee and had acute onset of pain. Most of the pain is along the medial aspect of her knee. She has failed the last 6 weeks of conservative treatment which has included Tylenol, anti- inflammatory medicines, a home exercise program and physical therapy exercises. She has also tried lidocaine patches which gave her minimal relief. She states that her right knee will give out several times per day. Allergies rosiglitazone (Avandia) Allergy (Severe, Verified 03/20/25 11:56) rash/hepatitis C cyclobenzaprine (From FLEXERIL) Allergy (Intermediate, Verified 03/20/25 11:56) HIVES latex (LATEX) Allergy (Intermediate, Verified 03/20/25 11:56) RASH azithromycin (From Zithromax) Allergy (Mild, Verified 03/20/25 11:56) SWELLING glipizide (From Glucotrol) Allergy (Mild, Verified 03/20/25 11:56) SWELLING levofloxacin (From Levaquin) Allergy (Mild, Verified 03/20/25 11:56) leg swelling aspirin (Aspirin) Allergy (Unknown, Verified 03/20/25 11:56) reaction unknown-was years ago Flexeril Allergy (Severe, Uncoded 03/20/25 11:56) Rash Medication List - Last Reconciled 03/20/25 by Pravin Guardado MD acetaminophen 500 mg PO Q6H PRN albuterol sulfate 90 mcg/actuation 2 puffs inhalation Q4-6H PRN azelastine 1 spray intranasal DAILY PRN budesonide-formoterol 160-4.5 mcg/actuation (Symbicort) 2 puffs inhalation BID celecoxib (Celebrex) 200 mg PO Q12H PRN cholecalciferol (vitamin D3) 50 mcg PO DAILY dicyclomine 10 - 20 mg PO Q6H PRN ibuprofen 600 mg PO Q6H PRN insulin asp prt-insulin aspart 100 unit/mL (70-30) (Novolog Mix 70-30FlexPen U- 100) 25 units subcut BID meclizine 25 mg PO TID PRN metoprolol succinate ER 75 mg PO BEDTIME montelukast 10 mg PO QPM naloxone 4 mg/actuation 1 spray intranasal DAILY nitroglycerin 0.4 mg sublingual Q5M PRN omeprazole 20 mg PO DAILY oxycodone-acetaminophen 5-325 mg 1 tab PO Q6H PRN oxycodone-acetaminophen 5-325 mg (Percocet) 1 tab PO Q4-6H PRN pregabalin 75 mg PO BID semaglutide (Ozempic) 2 mg subcut QWEEK valsartan-hydrochlorothiazide 320-25 mg 1 tab PO DAILY vitamin B complex (Vitamins B Complex tablet) 1 tab PO DAILY PFSH Medical History Incisional hernia Right sided abdominal pain NIKI (obstructive sleep apnea) Bronchitis Lumbar radiculopathy Obesity Macromastia Meralgia paraesthetica Insomnia Palpitations Arthritis Back pain Diabetes History of abdominal hernia GERD (gastroesophageal reflux disease) Irritable bowel syndrome Interstitial cystitis Jaundice Hepatitis C Depression Neuropathy Numbness History of headache Vertigo Asthma Elevated cholesterol HTN (hypertension) Subcutaneous mass of left foot Calcaneal spur, unspecified foot Hernia Surgical History (Updated 03/20/25 @ 09:50 by MICHAEL Salcedo) History of incisional hernia repair (03/05/25) Hx of arthroscopy of shoulder Hx of hysterectomy Hx of elbow surgery Hx of removal of cyst Hx of foot surgery Hx of section History of bladder surgery H/O colonoscopy History of cholecystectomy History of carpal tunnel surgery of right wrist History of carpal tunnel surgery of left wrist H/O tubal ligation History of repair of rotator cuff History of liver biopsy Family History Father Gastric cancer Mother Coronary disease Social History Are you a primary caregivers homecare to a significant other at home: No Do you presently have visiting nurse or other home services: No Alcohol intake: never Comment: medicated Patient Tobacco Use Status: Never used Tobacco Current occupational status: disabled Current occupation: rt handed Physical Exam Vital Signs: BMI result Body Mass Index 29.9 Extrem Other: Right knee examination shows a minimal effusion, mild crepitus with range of motion, tenderness along her medial joint line, positive Emil's test, no instability Office Procedures AMB Joint Injection/Aspiration Joint Injection/Aspiration Primary Site: Right Knee Prep: site was prepped using aseptic technique Injected: 40 mg of, DepoMedrol, with 3 mL of and 1% plain Lidocaine Procedure: The patient tolerated the procedure well Coding - Large joint Procedure code (CPT) selection complete Results Reviewed Results Reviewed: Standing full weight-bearing x-rays of the patient's right knee show mild diffuse joint space narrowing, no acute bony abnormalities Assessment & Plan Assessment & Plan (1) Tear of medial meniscus of right knee: Code(s): S83.241A - Other tear of medial meniscus, current injury, right knee, initial encounter Category: Medical (2) Right knee pain: Code(s): M25.561 - Pain in right knee Category: Medical Plan Ms. Tejada presents with right knee pain and mechanical symptoms most likely due to a medial meniscus tear. The risks and benefits of a right knee cortisone injection were discussed at length with the patient. The patient wished to proceed. She tolerated the injection well. I will also send the patient for an MRI of her right knee to further evaluate the status of her medial meniscus. I will contact her by phone once the MRI is completed. Feel free to call me at any time should questions regarding her orthopedic management arise. I spent 22 minutes in reviewing the patient's records and imaging studies, seeing the patient and documenting in the medical record. Orders: Orders MR knee RT wo con 03/21/25 S83.241A - Other tear of medial meniscus, current injury, right knee, initial encounter AMB Joint Injection/Aspiration Today M25.561 - Pain in right knee Coding Level of Care Code Est Pt Level 3 (43119) Complex visit Add On G2211 Diagnoses Tear of medial meniscus of right knee S83.241A Right knee pain M25.561 CPT Codes Coding - Large joint: 03213 - Large joint ([id number])
--- OUTSIDE RECORDS SUMMARY | 2025-03-20 14:13 | XMS_ITS | Data Portability ---
Author Organization [facility] [employer] [facility], [place] [employer] [facility] Address [address] [place] [phone] Assessment No assessment recorded. Plan of Treatment [...] Not available Not available Not available 02/14/2024 50582 RxNorm Not Available [facility] - production 4 03:41:49 8078 latex environme nt,medica tion Not available Not available Not available 02/14/2024 93459 91 RxNorm Not Available [employer] - production 4 03:41:49 8079 levofloxa leela medicatio n Not available Not available Not available 02/14/2024 99382 RxNorm Not Available [employer] - production 4 [...] Recorded Heart rate Respiratory rate Oxygen saturation Body temperature Systolic And Diastolic Provider Name and Address Organization Details Last Updated DateTime 3 73 /min 20 /min 98 % 97.9 [degF] 194/94 mm[Hg] Not [...] ICD10 Code Diagnosis IMO Codes Diagnosis Note [id number] Ravi Castillo MD Main - inst[facility] [address] [place] [address] 12/31/2022 17:19:52 01/03/2023 11:18:56 Essential hypertension 13924130 I10 This 57-year-ol d female with hypertensi on treated with metoprolol XL and valsartan called [facility] because her BP has been elevated today. Earlier today she had a knee injection. Her EKG showed no acute findings. Her BP was trending down when the pension administrator arrived. I recommende d that she monitor [...] [employer] Member ID Guarantor Name 06/21/2023 1 [facility] - DOS ON OR AFTER 2022 - DUAL ELIGIBLE - HALFWAY OPTIONS AND ONE CARE (MEDICARE REPLACEMENT/ADV ANTAGE - HMO) Ameena Tejada [id number] Ameena Tejada Notes Date Note Type Note Provider Name and Address Organization Details Recorded Time 12/31/2022 text/html ROS as noted in the HPI HPI: Patient with trending elevated BP's on last visit at [facility]. Though may be due to pain. Pain [...] to process visit Ravi Castillo MD [address] [facility],[address], [place], [address], [place] [employer] 12/31/2022 17:26:53 OBGyn Episode No OBEpisode recorded.
== END 2025-03-20 12:19 | disposition home or self-care (01) ==
PROVIDERS: PCP Family Medicine; Visit Provider Orthopaedic Surgery
DX: S83.241A Other tear of medial meniscus, current injury, right knee, initial encounter (principal); M25.561 Pain in right knee
CPT/HCPCS: 20610; 99213

== ENCOUNTER → 2025-03-20 11:51 | Outpatient (BNV) | payer OTHER, SELFPAY | PROVIDERS: Visit Provider Radiology Diagnostic Ultrasound | DX: R51.9 Headache, unspecified (principal); R42 Dizziness and giddiness; M25.562 Pain in left knee | CPT/HCPCS: 70551; 73562 ==

== ENCOUNTER 2025-03-20 18:22 | Outpatient (REF) | payer OTHER, SELFPAY ==
--- NOTE | ~2025-03-20 | MR_ITS ---
CLINICAL HISTORY: 59 y.o F with new headache and dizziness MR Brain without gadolinium Comparison: None provided Findings: Degraded by motion artifact. No restricted diffusion. No intra-axial mass or hemorrhage. Age appropriate cerebral volume loss. Patchy high FLAIR signal within the periventricular and subcortical white matter. No midline shift. No hydrocephalus. Vascular flow voids are intact. Orbital contents are unremarkable. The sinuses and mastoid air cells are clear. No focal bone lesion. IMPRESSION: No acute findings. This document has been electronically signed by: Beto Velez MD on 03/20/2025 19:32:12
== END 2025-03-20 18:23 | disposition home or self-care (01) ==
LOC: HO.MRI 18:22
PROVIDERS: PCP Family Medicine; Visit Provider Registered Nurse
DX: R42 Dizziness and giddiness (principal); R51.9 Headache, unspecified
CPT/HCPCS: 70551; 73562

== ENCOUNTER 2025-04-02 13:10 | Outpatient (REF) | payer OTHER, SELFPAY ==
--- OUTSIDE RECORDS SUMMARY | 2023-10-19 03:30 | XMS_ITS ---
Author Organization [facility] Address [address] [place] [address] Care Team Providers Care Back Shoe Worker Name Role Phone Choco GANDHI, Patito Primary Care Provider Leonardo Harding [phone] REASON FOR VISIT screening Problems Problem Type SNOMED Code ICD Code Onset Dates Problem Status W/U Status Risk Notes Problem Diverticular disease of colon (970747972) Diverticulosis of large intestine without perforation or abscess without bleeding (K57.30) Active confirmed Encounters Encounter Location Date Provider Diagnosis [facility] Outpatient [address] [place], [place] [phone] 10/19/2023 Leonardo Stratton Encounter for scre ening [...] 02:20:00 PM, [address], [address], [place], [address], Progress Notes * NASSARANDERSONB: 5 (60 yo F)Acc No.[id number]:10/19/2023 COLON WITH MAC Patient: Eli WaqarSTEPANALLAN JAMEL Provider: Layton Stratton MD :1965 A ge:58 Y S ex:Female Date:10/19/2023 Address:[address] [place] [address] [address], [id number] Pcp:Patito Wilhelm MD Subjective: * Chief Complaints: * S creening Assessment: * Assessment: 1. E ncounter for screening colonoscopy - Z12.11 (Primary) 2 . D iverticulosis of large intestine without perforation or abscess without bleeding - K57.30 3 .?Other hemorrhoids - K64.8 Plan: * Procedure Codes: 4 5378 DIAGNOSTIC COLONOSCOPY Billing Information: * Procedure Codes: 71614 DIAGNOSTIC COLONOSCOPY. * The named appointment provid er may or may not be the originator of this progress note, and it is not deemed complete until electronically signed by the appointment provider. Sign off status: Pending * Provider: Layton Stratton MD Date: 0 10/19/2023 Generated for Nory funk/Eulalia/Lanitting on: 1 06/03/2024 05:10 PM EST
--- OUTSIDE RECORDS SUMMARY | 2024-07-19 04:20 | XMS_ITS ---
Author Organization [facility] Address [address] [place] [address] Care Team Providers Care Back Panel Padder Name Role Phone Choco GANDHI, Patito Primary Care Provider Leonardo Harding [phone] REASON FOR VISIT Patient presents today for hepatitis c Encounters Encounter Location Date Provider Diagnosis [facility] [address] [place] [address] 07/19/2024 Leonardo Stratton Plan Of Treatment Next Appt Details Provider Name:Leonardo Stratton , 05/31/2025 02:20:00 PM, [address], [address], [place], [address], Progress Notes * ANDERSON NASSARB: 5 (60 yo F)Acc No.[id number]:07/19/2024 Progress Notes Patient: JAMEL RICHARD Provider: Layton Stratton MD :1965 A ge:59 Y S ex:Female Date:07/19/2024 Address:[address] [place] [address] [address] [id number] Pcp:Patito Wilhelm MD Subjective: * Chief Complaints: * P atient presents today for hepatitis c * The named appointment provid er may or may not be the originator of this progress note, and it is not deemed complete until electronically signed by the appointment provider. Sign off status: Pending * Provider: Layton Stratton MD Date: 0 07/19/2024 Generated for [employer]k/Eulalia/eTransmitting on: 1 06/03/2024 05:11 PM EST
--- OUTSIDE RECORDS SUMMARY | 2025-04-02 17:12 | XMS_ITS | Encounter Summary ---
Author Organization [employer] Address [address] [facility] 7 [place] [address] Care Team Providers Care Data Warehouse Developer Name Role Phone Patito Wilhelm MD Primary Care Provider [phone] Wilber Christie PharmD Unavailable [phone] Reason for Visit * Reason Onset Date Comments Med Refill 07/11/2024 Encounter Details Date Type Department Care Team (Late st Contact Info) Description 07/11/2024 Telephone [facility] [address] [place] [address] Patito Wilhelm MD [address] [place] [address] Med Refill Social History Tobacco Use Types [...] 5-325 MG tablet To be sent to: [address] [address] documented in this encounter Plan of Treatment Upcoming Encounters Date Type Department Care Team (Late st Contact Info) Description 04/09/2025 11:00 AM EST Office Visit [facility] [address] [place] [address] 05/07/2025 1:30 PM EST Office Visit [address] [address] Patito Wilhelm MD [address] [place] [address] 05/10/2025 1:00 PM EST Medication Management [address] [address] Wilber Christie PharmD [address] [place] [address] documented as of this encounter Goals Goal [...] as of this encounter Care Teams Data Warehouse Developer Relationship Specialty Start Date End Date Patito Wilhelm MD [address] [place] [address] PCP - General Family Medicine 11/13/18 Wilber Christie PharmD [address] [place] [address] Pharmacist Internal Medicine 01/28/23 documented as of this encounter
--- OUTSIDE RECORDS SUMMARY | 2025-04-02 17:12 | XMS_ITS | Encounter Summary ---
Author Organization [employer] Address [address] [facility] 7t [place] [address] Care Team Providers Care Assembler Latches And Springs Name Role Phone Patito Wilhelm MD Primary Care Provider [phone] Wilber Christie PharmD Unavailable [phone] Reason for Visit * Reason Onset Date Comments Med Refill 01/04/2025 Encounter Details Date Type Department Care Team (Late st Contact Info) Description 01/04/2025 Telephone [facility] [address] [place] [address] Patito Wilhelm MD [address] [place] [address] Med Refill Social History Tobacco Use Types [...] 5-325 MG tablet To be sent to: [facility]/pharmacy #[id number] [place], [place] - [address] [place] [address] documented in this encounter Plan of Treatment Upcoming Encounters Date Type Department Care Team ([facility] st Contact Info) Description 04/09/2025 11:00 AM EST Office Visit [facility] [address] [place] [address] 05/07/2025 1:30 PM EST Office Visit [address] [address] Patito Wilhelm MD [address] [place] [address] 05/10/2025 1:00 PM EST Medication Management [facility] [address] [place] [address] Wilber Christie, PharmD [address] [place] [address] documented as of this encounter Goals Goal [...] as of this encounter Care Teams Assembler Latches And Springs Relationship Specialty Start Date End Date Patito Wilhelm MD [address] [place] [address] PCP - General Family Medicine 11/13/18 Wilber Christie PharmD [address] [place] [address] Pharmacist Internal Medicine 01/28/23 documented as of this encounter
--- OUTSIDE RECORDS SUMMARY | 2025-04-02 17:12 | XMS_ITS | Encounter Summary ---
Author Organization [employer] Address [address] [place] [address] [address], [place] [address] Care Team Providers Care Stair Builder Name Role Phone Patito Wilhelm MD Primary Care Provider [phone] Wilber Christie PharmD Unavailable Reason for Visit * Reason Comments Med Refill Encounter Details Date Type Department Care Team (Late Contact Info) Description 01/13/2023 Refill [facility] [address] [place] [phone] Ashley Goodman MD [address] [place] [address] Chronic right shoulder pain Social History Tobacco [...] Department Care Team (Late Contact Info) Description 04/09/2025 11:00 AM EST Office Visit [facility] [address] [place] [address] 05/07/2025 1:30 PM EST Office Visit [facility] [address] [place] [address] Patito Wilhelm MD [address] [place] [address] 05/10/2025 1:00 PM EST Medication Management [facility] [address] [place] [address] Wilber Christie, Kaia [address] [place] [address] documented as of this encounter Visit Diagnoses Diagnosis Chronic right shoulder pain Pain in joint, shoulder region documented in this encounter Additional Health Concerns Assessment Noted Time PHQ-9 Depression Total Score: 6 07/27/19 1:10 PM EDT documented as of this encounter Care Teams Stair Builder Relationship Specialty Start Date End Date Patito Wilhelm MD [address] [place] [address] PCP - General Family Medicine 11/13/18 Wilber Christie, PharmD [address] [place] [address] Pharmacist Internal Medicine 01/28/23 documented as of this encounter
--- OUTSIDE RECORDS SUMMARY | 2025-04-02 17:12 | XMS_ITS | Encounter Summary ---
Author Organization [employer] Address [address] [place] [address] [facility] [place] [address] Care Team Providers Care Labor Employment Associate Name Role Phone Patito Wilhelm MD Primary Care Provider [phone] Wilber Christie PharmD Unavailable [phone] Reason for Referral * Consultation (Routine) - Authorized Specialty Diagnoses / Procedures Referred By Contac t Referred To Contact Pharmacy Diagnoses Type 2 diabetes mellitus with both eyes affected by mild nonproliferative retinopathy without macular edema, with long-term current use of insulin (HCC) Primary hypertension Moderate persistent asthma without complication Patito Wilhelm MD [address] [place] [address] Phone: tel: fax: Referral ID Status Reason Start Date Expiration Date Visits Requested Visits Authorized [id number] Authorized Consult and Treat 01/24/2025 01/24/2026 6 6 Encounter Details Date Type Department Care Team (Late st Contact Info) Description 01/24/2025 Orders Only [facility] [address] [place] [address] [phone] Patito Wilhelm MD [address] [place] [address] [phone] Type 2 diabetes mellitus with both eyes [...] Team ([facility] st Contact Info) Description 04/09/2025 11:00 AM EST Office Visit [facility] [address] [place] [address] 05/07/2025 1:30 PM EST Office Visit [facility] [address] [place] [address] Patito Wilhelm MD [address] [place] [address] 05/10/2025 1:00 PM EST Medication Management [facility] [address] [place], [place] [phone] Wilber Christie PharmD [address] [place] [address] Scheduled Referrals Name Type Priority Associated Diagnoses [...] 3 AM EDT Narrative 02/18/2025 10:[address] [address] [address] Scan Report Signed Patient: Ameena Tejada MR#: [id number] 33 : 1965 Acct:[id number] Age/Sex: 59 / F ADM Date: 02/16/25 Loc: HO.CT Attending Dr: Marcell Saez MD Ordering Physician: Marcell Saez MD Date of Service: 02/16/25 Procedure(s): CT abdomen pelvis wo IV con Accession Number(s): [id number] cc: Marcell Saez MD; Patito Wilhelm MD Report Number: [id number]: Total DLP = 458.00 mGy-cm Reason for [...] 02/18/25 1009 DD/ 1003 TD/TT: 02/16/25 1018 Policeman: Procedure Note Donotuseinterpreter, Image - 02/18/[address] [place] [address] [address] Scan Report Signed Patient: King Tejada#: [id number] 33 : 1965Acct:[id number] Age/Sex: 59 / FADM Date: 02/16/25 Loc: HO.CT Attending Dr: Marcell Saez MD Ordering Physician: Marcell Saez MD Date of Service: 02/16/25 Procedure(s): CT abdomen pelvis wo IV con Accession Number(s): [id number] cc: Marcell Saez MD; Patito Wilhelm MD Report Number: [id number]: Total DLP = 458.00 mGy-cm Reason for [...] guidelines were followed. Electronically signed by: Reyes Reuda MD 02/18/2025 10:09 AM [facility] Dictated By: Reyes Rueda MD Signed By: <Electronically signed by Reyes Rueda MD in OV> 02/18/25 1009 DD/ 1003 TD/TT: 02/16/25 1018 Policeman: ALEXANDRA [facility] External Provider IMG CT PROCEDURES Edited Result [...] documented as of this encounter Care Teams Labor Employment Associate Relationship Specialty Start Date End Date Patito Wilhelm MD [address] [place] [address] PCP - General Family Medicine 11/13/18 Wilber Christie, PharmD [address] [place] [address] Pharmacist Internal Medicine 01/28/23 documented as of this encounter
--- OUTSIDE RECORDS SUMMARY | 2025-04-02 17:12 | XMS_ITS | Encounter Summary ---
Author Organization [employer] Address [address] [facility] 7t [place] [address] Care Team Providers Care Manager Financial Name Role Phone Patito Wilhelm MD Primary Care Provider [phone] Wilber Christie PharmD Unavailable [phone] Reason for Visit * Reason Onset Date Comments Medication Question 12/03/2024 Encounter Details Date Type Department Care Team ([facility] st Contact Info) Description 12/03/2024 Telephone [facility] [address] [place], [place] [phone] Patito Wilhelm MD [address] [place], [place] [phone] Medication Question Social History Tobacco Use Types [...] Description 04/09/2025 11:00 AM EST Office Visit [facility] [address] [place] [address] 05/07/2025 1:30 PM EST Office Visit [facility] [address] [place] [address] Patito Wilheml MD [address] [place] [address] 05/10/2025 1:00 PM EST Medication Management [facility] [address] [place], [place] [phone] Wilber Christie PharmD [address] [place] [address] documented as of this encounter Goals Goal [...] documented as of this encounter Care Teams Manager Financial Relationship Specialty Start Date End Date Patito Wilhelm MD [address] [place] [address] PCP - General Family Medicine 11/13/18 Wilber Christie PharmD [address] [place] [address] Pharmacist Internal Medicine 01/28/23 documented as of this encounter
--- OUTSIDE RECORDS SUMMARY | 2025-04-02 17:12 | XMS_ITS | Data Portability ---
Author Organization [facility] [employer] [facility], [place] [employer] Medical [facility] Address [address] [place] [phone] Assessment No assessment recorded. Plan of Treatment [...] Not available Not available Not available 02/14/2024 [id number] RxNorm Not Available [facility] - production 4 03:41:49 8078 latex environme nt,medica tion Not available Not available Not available 02/14/2024 96246 91 RxNorm Not Available [facility] - production 4 03:41:49 8079 levofloxa leela medicatio n Not available Not available Not available 02/14/2024 46487 RxNorm Not Available [facility] - production 4 [...] ICD10 Code Diagnosis IMO Codes Diagnosis Note [id number] Ravi Castillo MD Main - [facility] [address] [place] [address] 12/31/2022 17:19:52 01/03/2023 11:18:56 Essential hypertension [id number] I10 This 57-year-ol d female with hypertensi on treated with metoprolol XL and valsartan called [facility] because her BP has been elevated today. Earlier today she had a knee injection. Her EKG showed no acute findings. Her BP was trending down when the moisture meter reader arrived. I recommende d that she monitor [...] [employer] Member ID Guarantor Name 06/21/2023 1 [facility] - DOS ON OR AFTER 2022 - DUAL ELIGIBLE - CORRECTION OPTIONS AND ONE CARE (MEDICARE REPLACEMENT/ADV ANTAGE - HMO) Ameena Tejada [id number] Ameena Tejada Notes Date Note Type Note Provider Name and Address Organization Details Recorded Time 12/31/2022 text/html ROS as noted in the HPI HPI: Patient with trending elevated BP's on last visit at [facility]. Though may be due to pain. [...] to process visit Ravi Castillo MD [address] [facility],[address], [place], [address], [employer] 12/31/2022 17:26:53 OBGyn Episode No OBEpisode recorded.
--- OUTSIDE RECORDS SUMMARY | 2025-04-02 17:12 | XMS_ITS | Encounter Summary ---
Author Organization [employer] Address [address] [facility] 7t [place] [address] Care Team Providers Care Agent Name Role Phone Patito Wilhelm MD Primary Care Provider [phone] Wilber Christie PharmD Unavailable [phone] Reason for Visit * Reason Onset Date Comments Med Refill 03/08/2023 Encounter Details Date Type Department Care Team (Late st Contact Info) Description 03/08/2023 Telephone [facility] [address] [place], [place] [phone] Patito Wilhelm MD [address] [place], [place] [phone] Med Refill Social History Tobacco Use Types [...] (Percocet) 5-325 MG tablet Please sent to [facility]/pharmacy #[id number] [place], [place] - [address] [place] [address] documented in this encounter Plan of Treatment Upcoming Encounters Date Type Department Care Team (Late st Contact Info) Description 04/09/2025 11:00 AM EST Office Visit [address] [address] 05/07/2025 1:30 PM EST Office Visit [address] [address] Patito Wilhelm MD [address] [place] [address] 05/10/2025 1:00 PM EST Medication Management [address] [address] Wilber Christie, Kaia [address] [place] [address] documented as of this encounter Goals Goal [...] documented as of this encounter Care Teams Agent Relationship Specialty Start Date End Date Patito Wilhelm MD [address] [place] [address] PCP - General Family Medicine 11/13/18 Wilber Christie, PharmD [address] [place] [address] Pharmacist Internal Medicine 01/28/23 documented as of this encounter
--- OUTSIDE RECORDS SUMMARY | 2025-04-02 17:12 | XMS_ITS | Encounter Summary ---
Author Organization [employer] Address [address] [facility] 7t [place] [address] Care Team Providers Care Radiation / Chemistry Technician Name Role Phone Patito Wilhelm MD Primary Care Provider [phone] Wilber Christie PharmD Unavailable [phone] Reason for Visit * Reason Onset Date Comments Med Refill 02/05/2025 Encounter Details Date Type Department Care Team (Late st Contact Info) Description 02/05/2025 Telephone [facility] MED[facility]INE [address] [place] [address] Patito Wilhelm MD [address] [place] [address] Med Refill Social History Tobacco Use Types [...] tablet To be sent to: [facility]/pharmacy #[id number] [place], [place] - [address] [place] [address] documented in this encounter Plan of Treatment Upcoming Encounters Date Type Department Care Team ([facility] st Contact Info) Description 04/09/2025 11:00 AM EST Office Visit [facility] [address] [place] [address] 05/07/2025 1:30 PM EST Office Visit [facility] [address] [place] [address] Patito Wilhelm MD [address] [place] [address] 05/10/2025 1:00 PM EST Medication Management [facility] [address] [place] [address] Wilber Christie, PharmD [address] [place] [address] documented as of this encounter Goals Goal [...] documented as of this encounter Care Teams Radiation / Chemistry Technician Relationship Specialty Start Date End Date Patito Wilhelm MD [address] [place] [address] PCP - General Family Medicine 11/13/18 Wilber Christie PharmD [address] [place] [address] Pharmacist Internal Medicine 01/28/23 documented as of this encounter
--- OUTSIDE RECORDS SUMMARY | 2025-04-02 17:12 | XMS_ITS | Encounter Summary ---
Author Organization [employer] Address [address] [facility] 7t [place] [address] Care Team Providers Care Fire Hazard Inspector Name Role Phone Patito Wilhelm MD Primary Care Provider [phone] Wilber Christie PharmD Unavailable [phone] Reason for Visit * Reason Onset Date Comments Med Refill 04/01/2025 Encounter Details Date Type Department Care Team ([facility] st Contact Info) Description 04/01/2025 Refill [facility] [address] [place], [place] [phone] Tosha Phillips, RN [address] [place], [place] [phone] Chronic back pain, unspecified back location, unspecified [...] Description 04/09/2025 11:00 AM EST Office Visit [address] [address] 05/07/2025 1:30 PM EST Office Visit [address] [address] Patito Wilhelm MD [address] [place] [address] 05/10/2025 1:00 PM EST Medication Management [address] [address] Wilber Christie PharmD [address] [place] [address] documented as of this encounter Goals Goal Patient Goal Type Associated Problems Recent Progress Patient-Stated? Author Blood Pressure < 140/90 Blood Pressure 120/60(2024 3:07 PM EDT) No Wilber Christie PharmD Hemoglobin A1c < 7 Result Component 6.1( 3:10 PM EDT) No Wilber Christie Kaia Help patients manage their type 2 diabetes Care Plan Help patients manage their type 2 diabetes No Seema Hennessy Weekly blood pressure task Care Plan Weekly blood pressure task No Seema Hennessy Help patients manage their type 2 diabetes Care Plan Help patients manage their type 2 diabetes No Seema Hennessy Patient has chronic kidney disease Care Plan Patient has chronic kidney disease No Seema Hennessy Weekly blood pressure task Care Plan Weekly blood pressure task No Seema Hennessy Patient has chronic kidney disease Care Plan Patient has chronic kidney disease No Seema Hennessy Weekly blood pressure task Care Plan Weekly blood pressure task No Seema Hennessy Weekly blood pressure task Care Plan Weekly blood pressure task No Seema Hennessy Patient has chronic kidney disease Care Plan Patient has chronic kidney disease No Seema Hennessy Patient has chronic kidney disease Care Plan Patient has chronic kidney disease No Seema Hennessy Weekly blood pressure task Care Plan Weekly blood pressure task No Tosha Phillips RN Weekly blood pressure task Care Plan Weekly blood pressure task No Tosha Phillips RN Patient has chronic kidney disease Care Plan Patient has chronic kidney disease No Tosha Phillips RN Patient has chronic kidney disease Care Plan Patient has chronic kidney disease No Tosha Phillips RN Weekly blood pressure task Care Plan Weekly blood pressure task No Patito Wilhelm MD Weekly blood pressure task Care Plan Weekly blood pressure task No Patito Wilhelm MD Patient has chronic kidney disease Care Plan Patient has chronic kidney disease No Patito Wilhelm MD Patient has chronic kidney disease Care Plan Patient has chronic kidney disease No Patito Wilhelm MD Weekly blood pressure task Care Plan Weekly blood pressure task No Kenzie Jaimes RN Weekly blood pressure task Care Plan Weekly blood pressure task No Kenzie Jaimes RN Patient has chronic kidney disease Care Plan Patient has chronic kidney disease No Kenzie Jaimes RN Patient has chronic kidney disease Care Plan Patient has chronic kidney disease No Kenzie Jaimes RN Weekly blood pressure task Care Plan Weekly blood pressure task No Charmaine Carreon [facility] Weekly blood pressure task Care Plan Weekly blood pressure task No Charmaine Carreon [facility] Patient has chronic kidney disease Care Plan Patient has chronic kidney disease No Charmaine Carreon [facility] Patient has chronic kidney disease Care Plan Patient has chronic kidney disease No Charmaine Carreon [facility] Weekly blood pressure task Care Plan Weekly blood pressure task No Kristie Goldberg Weekly blood pressure task Care Plan Weekly blood pressure task No Kristie Goldberg Patient has chronic kidney disease Care Plan Patient has chronic kidney disease No Kristie Goldberg Patient has chronic kidney disease Care Plan Patient has chronic kidney disease No Kristie Goldberg Weekly blood pressure task Care Plan Weekly blood pressure task No NetawakaChristianne CELLAR PUMPER Weekly blood pressure task Care Plan Weekly blood pressure task No NetawakaChristianne [facility] Patient has chronic kidney disease Care Plan Patient has chronic kidney disease No NetawakaChristianne CELLAR PUMPER Patient has chronic kidney disease Care Plan Patient has chronic kidney disease No NetawakaChristianne CELLAR PUMPER Weekly blood pressure task Care Plan Weekly blood pressure task No Luana Hennessy Weekly blood pressure task Care Plan Weekly blood pressure task No Luana Hennessy Patient has chronic kidney disease Care Plan Patient has chronic kidney disease No Sabine Hennessyilda Patient has chronic kidney disease Care Plan Patient has chronic kidney disease No Sabine Hennessyilda Weekly blood pressure task Care Plan Weekly blood pressure task No Kenzie Jaimes RN Weekly blood pressure task Care Plan Weekly blood pressure task No Kenzie Jaimes RN Patient has chronic kidney disease Care Plan Patient has chronic kidney disease No Kenzie Jaimes RN Patient has chronic kidney disease Care Plan Patient has chronic kidney disease No Kenzie Jaimes RN Weekly blood pressure task Care Plan Weekly blood pressure task No Dominga Deshpande Weekly blood pressure task Care Plan Weekly blood pressure task No Dominga Deshpande Patient has chronic kidney disease Care Plan Patient has chronic kidney disease No Sukumar Puente Dominga Patient has chronic kidney disease Care Plan Patient has chronic kidney disease No Dominga Deshpande Weekly blood pressure task Care Plan Weekly blood pressure task No Tosha Phillips RN Weekly blood pressure task Care Plan Weekly blood pressure task No Tosha Phillips RN Patient has chronic kidney disease Care Plan Patient has chronic kidney disease No Tosha Phillips, ANGELIQUE Patient has chronic kidney disease Care Plan Patient has chronic kidney disease No Tosha Phillips RN documented as of this encounter Visit Diagnoses Diagnosis Chronic back pain, unspecified back location, unspecified back pain laterality documented in this encounter Additional Health Concerns Active Problems Noted Date Diagnosed Date Help patients manage their type 2 diabetes 03/04 Weekly blood pressure task 03/04/2025 Help patients manage their type 2 diabetes 03/04 Patient has chronic kidney disease 03/04/2025 Weekly blood pressure task 03/04/2025 Patient has chronic kidney disease 03/04/2025 Weekly blood pressure task 03/04/2025 Weekly blood pressure task 03/04/2025 Patient has chronic kidney disease 03/04/2025 Patient has chronic kidney disease 03/04/2025 Weekly blood pressure task 03/04/2025 Weekly blood pressure task 03/04/2025 Patient has chronic kidney disease 03/04/2025 Patient has chronic kidney disease 03/04/2025 Weekly blood pressure task 03/04/2025 Weekly blood pressure task 03/04/2025 Patient has chronic kidney disease 03/04/2025 Patient has chronic kidney disease 03/04/2025 Weekly blood pressure task 03/05/2025 Weekly blood pressure task 03/05/2025 Patient has chronic kidney disease 03/05/2025 Patient has chronic kidney disease 03/05/2025 Weekly blood pressure task 03/13/2025 Weekly blood pressure task 03/13/2025 Patient has chronic kidney disease 03/13/2025 Patient has chronic kidney disease 03/13/2025 Weekly blood pressure task 03/19/2025 Weekly blood pressure task 03/19/2025 Patient has chronic kidney disease 03/19/2025 Patient has chronic kidney disease 03/19/2025 Weekly blood pressure task 03/22/2025 Weekly blood pressure task 03/22/2025 Patient has chronic kidney disease 03/22/2025 Patient has chronic kidney disease 03/22/2025 Weekly blood pressure task 03/26/2025 Weekly blood pressure task 03/26/2025 Patient has chronic kidney disease 03/26/2025 Patient has chronic kidney disease 03/26/2025 Weekly blood pressure task 03/28/2025 Weekly blood pressure task 03/28/2025 Patient has chronic kidney disease 03/28/2025 Patient has chronic kidney disease 03/28/2025 Weekly blood pressure task 04/01/2025 Weekly blood pressure task 04/01/2025 Patient has chronic kidney disease 04/01/2025 Patient has chronic kidney disease 04/01/2025 Weekly blood pressure task 04/01/2025 Weekly blood pressure task 04/01/2025 Patient has chronic kidney disease 04/01/2025 Patient has chronic kidney disease 04/01/2025 Assessment Noted Time PHQ-9 Depression Total Score: 10 025 3:13 PM EDT documented as of this encounter Care Teams Fire Hazard Inspector Relationship Specialty Start Date End Date Patito Wilhelm MD [address] [place] [address] PCP - General Family Medicine 11/13/18 Wilber Christie, PennyD [address] [place] [address] Pharmacist Internal Medicine 01/28/23 documented as of this encounter
--- OUTSIDE RECORDS SUMMARY | 2025-04-02 17:12 | XMS_ITS | Encounter Summary ---
Author Organization [employer] Address [address] [facility] 7t [place] [address] Care Team Providers Care Fire Hydrant Mechanic Name Role Phone Patito Wilhelm MD Primary Care Provider [phone] Wilber Christie PharmD Unavailable [phone] Reason for Visit * Reason Comments Med Refill Encounter Details Date Type Department Care Team (Late st Contact Info) Description 01/26/2025 Refill [facility] MEDICINE [address] [place] [address] Patito Wilhelm MD [address] [place] [address] Social History Tobacco Use Types Packs/Day Years [...] Description 04/09/2025 11:00 AM EST Office Visit [address] [address] 05/07/2025 1:30 PM EST Office Visit [address] [address] Patito Wilhelm MD [address] [place] [address] 05/10/2025 1:00 PM EST Medication Management [address] [address] Wilber Christie, PennyD [address] [place] [address] documented as of this encounter Goals Goal Patient Goal Type Associated Problems Recent Progress Patient-Stated? Author Blood Pressure < 140/90 Blood Pressure 120/60(2024 3:07 PM EDT) No Wilber Christie, PharmKit Hemoglobin A1c < 7 Result Component 6.1( 3:10 PM EDT) No Wilber Christie, Kaia documented as of this encounter Visit Diagnoses Not on filedocumented in this encounter Additional Health Concerns Assessment Noted Time PHQ-9 Depression Total Score: 11 024 1:39 PM EDT documented as of this encounter Care Teams Fire Hydrant Mechanic Relationship Specialty Start Date End Date Patito Wilhelm MD [address] [place] [address] PCP - General Family Medicine 11/13/18 Wilber Christie, Kaia [address] [place] [address] Pharmacist Internal Medicine 01/28/23 documented as of this encounter
--- OUTSIDE RECORDS SUMMARY | 2025-04-02 17:12 | XMS_ITS | Encounter Summary ---
Author Organization [employer] Address 75 [facility] 7t [place] [address] Care Team Providers Care Gun Stock Maker Name Role Phone Patito Wilhelm MD Primary Care Provider Wilber Christie PharmD Unavailable [phone] Reason for Visit * Reason Onset Date Comments Nurse Triage 05/25/2024 Encounter Details Date Type Department Care Team ([facility] st Contact Info) Description 05/25/2024 Telephone [facility] MEDICINE [address] [place], [place] [phone] Patito Wilhelm MD [address] [place], [place] [phone] Nurse Triage Social History Tobacco Use Types [...] Will send this note to Walk in lead front desk agent and Nurses as Pt. May be coming [...] Call Ahead Before Visiting Your Doctor (or GRAIN BROKER AND MARKET OPERATOR/PA) * Telephone Encounter - Jess Bunn - 05/25/2024 12:53 PM EST Symptoms: Low Blood Pressure - Caller Reports, Cough, Headache, Nausea But No Vomiting Outcome: Talk to a nurse or provider within 15 minutes Reason: Trouble walking The caller accepted this outcome. [phone] documented in this encounter Plan of Treatment Upcoming Encounters Date Type Department Care Team (Late st Contact Info) Description 04/09/2025 11:00 AM EST Office Visit [address] [address] 05/07/2025 1:30 PM EST Office Visit [address] [address] Patito Wilhelm MD [address] [place] [address] 05/10/2025 1:00 PM EST Medication Management [address] [address] Wilber Christie, PharmD [address] [place] [address] documented as of this encounter Goals Goal [...] documented as of this encounter Care Teams Gun Stock Maker Relationship Specialty Start Date End Date Patito Wilhelm MD [address] [place] [address] PCP - General Family Medicine 11/13/18 Wilber Christie PharmD [address] [place] [address] Pharmacist Internal Medicine 01/28/23 documented as of this encounter
--- OUTSIDE RECORDS SUMMARY | 2025-04-02 17:12 | XMS_ITS | Encounter Summary ---
Author Organization [employer] Address 75 [facility] 7t [place] [address] Care Team Providers Care Investigator Cash Shortage Name Role Phone Patito Wihlelm MD Primary Care Provider [phone] Wilber Christie PharmD Unavailable [phone] Reason for Visit * Reason Onset Date Comments PAP Smear 08/1008/11/2023 Encounter Details Date Type Department Care Team ([facility] st Contact Info) Description 08/11/2023 Telephone [facility] MEDICINE [address] [place] [address] Patito Wilhelm MD [address] [place], [place] [phone] PAP Smear 08/10 Social History Tobacco Use [...] stated she wasn't able ot make it, creative writer attempted to r/s but no availability. Drum Puller advised pt call back August 16 r/s for October. documented in this encounter Plan of Treatment Upcoming Encounters Date Type Department Care Team (Late st Contact Info) Description 04/09/2025 11:00 AM EST Office Visit [address] [address] 05/07/2025 1:30 PM EST Office Visit [address] [address] Patito Wilhelm MD [address] [place] [address] 05/10/2025 1:00 PM EST Medication Management [address] [address] Wilber Christie PharmD [address] [place] [address] documented as of this encounter Goals Goal [...] documented as of this encounter Care Teams Investigator Cash Shortage Relationship Specialty Start Date End Date Patito Wilhelm MD [address] [place] [address] PCP - General Family Medicine 11/13/18 Wilber Christie PharmD [address] [place] [address] Pharmacist Internal Medicine 01/28/23 documented as of this encounter
--- OUTSIDE RECORDS SUMMARY | 2025-04-02 17:12 | XMS_ITS | Encounter Summary ---
Author Organization [employer] Address 75 [facility] 7t [place] [address] Care Team Providers Care Business Affairs Manager Name Role Phone Patito Wilhelm MD Primary Care Provider [phone] Wilber Christie PharmD Unavailable [phone] Reason for Visit * Reason Onset Date Comments Medication Question 06/09/2023 Encounter Details Date Type Department Care Team ([facility] st Contact Info) Description 06/09/2023 Telephone [facility] MEDICINE [address] [place], [place] [phone] Patito Wilhelm MD [address] [place], [place] [phone] Medication Question Social History Tobacco Use Types [...] If any questions please contact pt at [phone]. documented in this encounter Plan of Treatment Upcoming Encounters Date Type Department Care Team (Late st Contact Info) Description 04/09/2025 11:00 AM EST Office Visit [address] [address] 05/07/2025 1:30 PM EST Office Visit [address] [address] Patito Wilhelm MD [address] [place] [address] 05/10/2025 1:00 PM EST Medication Management [address] [address] Wilber Christie PharmD [address] [place] [address] documented as of this encounter Goals Goal [...] documented as of this encounter Care Teams Business Affairs Manager Relationship Specialty Start Date End Date Patito Wilhelm MD [address] [place] [address] PCP - General Family Medicine 11/13/18 Wilber Christie, PharmD [address] [place] [address] Pharmacist Internal Medicine 01/28/23 documented as of this encounter
--- OUTSIDE RECORDS SUMMARY | 2025-04-02 17:12 | XMS_ITS | Encounter Summary ---
Author Organization [employer] Address 75 [facility] 7t [place] [address] Care Team Providers Care Measurement Operator Name Role Phone Patito Wilhelm MD Primary Care Provider [phone] Wilber Christie PharmD Unavailable [phone] Reason for Visit * Reason Onset Date Comments Med Refill 08/16/2024 Encounter Details Date Type Department Care Team (Late st Contact Info) Description 08/16/2024 Telephone [facility] MEDICINE [address] [place] [address] Patito Wilhelm MD [address] [place] [address] Med Refill Social History Tobacco Use Types [...] 5-325 MG tablet To be sent to: [address] [address] documented in this encounter Plan of Treatment Upcoming Encounters Date Type Department Care Team (Late st Contact Info) Description 04/09/2025 11:00 AM EST Office Visit [facility] MEDICINE [address] [place] [address] 05/07/2025 1:30 PM EST Office Visit [address] [address] Patito Wilhelm MD [address] [place] [address] 05/10/2025 1:00 PM EST Medication Management [address] [address] Wilber Christie PharmD [address] [place] [address] documented as of this encounter Goals Goal [...] documented as of this encounter Care Teams Measurement Operator Relationship Specialty Start Date End Date Patito Wilhelm MD [address] [place] [address] PCP - General Family Medicine 11/13/18 Wilber Christie PharmD [address] [place] [address] Pharmacist Internal Medicine 01/28/23 documented as of this encounter
--- OUTSIDE RECORDS SUMMARY | 2025-04-02 17:12 | XMS_ITS | Encounter Summary ---
Author Organization [employer] Address 75 [facility] 7 [place] [address] Care Team Providers Care Hr Intern Name Role Phone Patito Wilhelm MD Primary Care Provider [phone] Wilber Christie PharmD Unavailable [phone] Reason for Visit * Reason Onset Date Comments Med Refill 04/01/2025 Encounter Details Date Type Department Care Team (Late st Contact Info) Description 04/01/2025 Telephone [facility] MEDICINE [address] [place] [address] Patito Wilhelm MD [address] [place] [address] Med Refill Social History Tobacco Use Types [...] * Telephone Encounter - Dominga Puente - 04/01/2025 9:36 AM EST TC from pt requesting medication refill. Medications needing refill : - oxyCODONE-acetaminophen (Percocet) 5-325 MG tablet To be sent to: - [facility]/pharmacy #[id number] documented in this encounter Plan of Treatment Upcoming Encounters Date Type Department Care Team (Late st Contact Info) Description 04/09/2025 11:00 AM EST Office Visit [facility] MEDICINE [address] [place] [address] 05/07/2025 1:30 PM EST Office Visit [address] [address] Patito Wilhelm MD [address] [place] [address] 05/10/2025 1:00 PM EST Medication Management [address] [address] Wilber Christie, PennyD [address] [place] [address] documented as of this encounter Goals Goal Patient Goal Type Associated Problems Recent Progress Patient-Stated? Author Blood Pressure < 140/90 Blood Pressure 120/60(2024 3:07 PM EDT) No Wilber Christie PharmD Hemoglobin A1c < 7 Result Component 6.1( 3:10 PM EDT) No Wilber Christie, Kaia Help patients manage their type 2 [...] Patient has chronic kidney disease No Kenzie Jaimes, ANGELIQUE Patient has chronic kidney disease Care Plan Patient has chronic kidney disease No Kenzie Jaimes RN Weekly blood pressure task Care Plan Weekly blood pressure task No [facility] Weekly blood pressure task Care Plan Weekly blood pressure task No Keysha Goldsmith [facility] Patient has chronic kidney disease Care Plan Patient has chronic kidney disease No [facility] Patient has chronic kidney disease Care Plan Patient has chronic kidney disease No Keysha Goldsmith [facility] Weekly blood pressure task Care Plan Weekly [...] Care Plan Weekly blood pressure task No [place] [facility] Weekly blood pressure task Care Plan Weekly blood pressure task No [place] Christianne [facility] Patient has chronic kidney disease Care Plan Patient has chronic kidney disease No [place] [facility] Patient has chronic kidney disease Care Plan Patient has chronic kidney disease No [place] [facility] Weekly blood pressure task Care Plan Weekly blood pressure task No Luana Hennessy Weekly blood pressure task Care Plan Weekly blood pressure task No Luana Hennessy Patient has chronic kidney disease Care Plan Patient has chronic kidney disease No Luana Hennessy Patient has chronic kidney disease Care Plan Patient has chronic kidney disease No Ame Hennessya Weekly blood pressure task Care Plan Weekly blood pressure task No Kenzie Jaimes RN Weekly blood pressure task Care Plan Weekly blood pressure task No Kenzie Jaimes, ANGELIQUE Patient has chronic kidney disease Care Plan Patient has chronic kidney disease No Kenzie Jaimes, ANGELIQUE Patient has chronic kidney disease Care Plan Patient has chronic kidney disease No Kenzie Jaimes, RN Weekly blood pressure task Care Plan Weekly blood pressure task No Dominga Deshpande Weekly blood pressure task Care Plan Weekly blood pressure task No Colon Dominga Puente Patient has chronic kidney disease Care Plan Patient has chronic kidney disease No Colon Julia Puentela Patient has chronic kidney disease Care Plan [...] filedocumented in this encounter Additional Health Concerns Active [...] documented as of this encounter Care Teams Hr Intern Relationship Specialty Start Date End Date Patito Wilhelm MD [address] [place] [address] PCP - General Family Medicine 11/13/18 Wilber Christie, PennyD [address] [place] [address] Pharmacist Internal Medicine 01/28/23 documented as of this encounter
--- OUTSIDE RECORDS SUMMARY | 2025-04-02 17:12 | XMS_ITS | Encounter Summary ---
Author Organization [employer] Address 75 [facility] 7t [place] [address] Care Team Providers Care Tunnel Miner Name Role Phone Patito Wilhelm MD Primary Care Provider [phone] Wilber Christie PharmD Unavailable [phone] Reason for Visit * Reason Onset Date Comments Med Refill 04/06/2023 Encounter Details Date Type Department Care Team (Late st Contact Info) Description 04/06/2023 Telephone [facility] MEDICINE [address] [place] [address] Patito Wilhelm MD [address] [place], [place] [phone] Med Refill Social History Tobacco Use Types [...] (Percocet) 5-325 MG tablet Please sent to [facility]/pharmacy #[id number] [place], [place] - [address] [place] [address] documented in this encounter Plan of Treatment Upcoming Encounters Date Type Department Care Team (Late st Contact Info) Description 04/09/2025 11:00 AM EST Office Visit [address] [address] 05/07/2025 1:30 PM EST Office Visit [address] [address] Patito Wilhelm MD [address] [place] [address] 05/10/2025 1:00 PM EST Medication Management [address] [address] Wilber Christie, Kaia [address] [place] [address] documented as of this encounter Goals Goal [...] documented as of this encounter Care Teams Tunnel Miner Relationship Specialty Start Date End Date Patito Wilhelm MD [address] [place] [address] PCP - General Family Medicine 11/13/18 Wilber Christie, PharmD [address] [place] [address] Pharmacist Internal Medicine 01/28/23 documented as of this encounter
--- OUTSIDE RECORDS SUMMARY | 2025-04-02 17:12 | XMS_ITS | Encounter Summary ---
Author Organization [employer] Address 75 [facility] 7t [place] [address] Care Team Providers Care Preparole Counseling Aide Name Role Phone Patito Wilhelm MD Primary Care Provider [phone] Wilber Christie PharmD Unavailable [phone] Reason for Visit * Reason Onset Date Comments Med Refill 02/07/2023 Encounter Details Date Type Department Care Team (Late st Contact Info) Description 02/07/2023 Telephone [facility] MEDICINE 230 [place] [address] Patito Wilhelm MD [address] [place], [place] [phone] Med Refill Social History Tobacco Use Types [...] Description 04/09/2025 11:00 AM EST Office Visit [address] [address] 05/07/2025 1:30 PM EST Office Visit [address] [address] Patito Wilhelm MD [address] [place] [address] 05/10/2025 1:00 PM EST Medication Management [address] [address] Wilber Christie, PharmD [address] [place] [address] documented as of this encounter Goals Goal [...] documented as of this encounter Care Teams Preparole Counseling Aide Relationship Specialty Start Date End Date Patito Wilhelm MD 230 [place] [address] PCP - General Family Medicine 11/13/18 Wilber Christie, PennyD 230 [place] [address] Pharmacist Internal Medicine 01/28/23 documented as of this encounter
--- OUTSIDE RECORDS SUMMARY | 2025-04-02 17:13 | XMS_ITS | Encounter Summary ---
Author Organization [employer] Address [address] [place] [address] 7 [place] [address] Care Team Providers Care Shearing Supervisor Name Role Phone Patito Wilhelm MD Primary Care Provider [phone] Wilber Christie PharmD Unavailable [phone] Encounter Details Date Type Department Care Team (Latest Contact Info) Description 02/21/2019 Abstract [facility] CONVERSIONS Dental, Provider, DDS Social [...] Care Team ( st Contact Info) Description 04/09/2025 11:00 AM EST Office Visit [address] [address] 05/07/2025 1:30 PM EST Office Visit [facility] MEDICINE [address] [place] [address] Patito Wilhelm MD [address] [place] [address] 05/10/2025 1:00 PM EST Medication Management [facility] MEDICINE [address] [place] [address] Wilber Christie, PharmD 230 [place] [address] documented as of this encounter Visit Diagnoses Not on filedocumented in this encounter Care Teams Shearing Supervisor Relationship Specialty Start Date End Date Patito Wilhelm MD [address] [place] [address] PCP - General Family Medicine 11/13/18 Wilber Christie, PennyD [address] [place] [address] Pharmacist Internal Medicine 01/28/23 documented as of this encounter
--- OUTSIDE RECORDS SUMMARY | 2025-04-02 17:13 | XMS_ITS | Encounter Summary ---
Author Organization [email or web address] Address 75 [facility] 7t [place] [address] Care Team Providers Care Senior Software Systems Engineer Name Role Phone Patito Wilhelm MD Primary Care Provider [phone] Wilber Christie PharmD Unavailable [phone] Reason for Visit * Reason Onset Date Comments Med Refill 12/02/2023 Encounter Details Date Type Department Care Team (Late st Contact Info) Description 12/02/[address] [facility] MEDICINE [address] [place] [address] Patito Wilhelm MD 230 [place] [address] Chronic bilateral low back pain, unspecified whether [...] 5-325 MG tablet To be sent to: [facility]/pharmacy #[id number] [place], [place] [address] [employer] [place] Prescription last filled on 11/04/23 0 Refills Left ENEDINA with PCP: 08/30/23 * Telephone Encounter - Rodrigue Lawton - 12/02/2023 10:30 AM EDT TC from pt requesting medication refill. Medications needing refill : oxyCODONE-acetaminophen (Percocet) 5-325 MG tablet To be sent to: [facility]/pharm[facility] [employer] [place] documented in this encounter Plan of Treatment Upcoming Encounters Date Type Department Care Team (Late st Contact Info) Description 04/09/2025 11:00 AM EST Office Visit [address] [address] 05/07/2025 1:30 PM EST Office Visit [address] [address] Patito Wilhelm MD [address] [place] [address] 05/10/2025 1:00 PM EST Medication Management [address] [phone] Wilber Christie PharmD [address] [place] [address] documented as of this encounter Goals Goal [...] as of this encounter Care Teams Senior Software Systems Engineer Relationship Specialty Start Date End Date Patito Wilhelm MD [address] [place] [address] PCP - General Family Medicine 11/13/18 Wilber Christie PharmD [address] [place] [address] [phone] Pharmacist Internal Medicine 01/28/23 documented as of this encounter
--- OUTSIDE RECORDS SUMMARY | 2025-04-02 17:13 | XMS_ITS | Encounter Summary ---
Author Organization [employer] Address 75 [facility] 7 [place] [address] Care Team Providers Care Composite Technician Name Role Phone Patito Wilhelm MD Primary Care Provider [phone] Wilber Christie PharmD Unavailable [phone] Reason for Visit * Reason Onset Date Comments Med Refill 03/04/2025 Encounter Details Date Type Department Care Team (Late st Contact Info) Description 03/04/2025 Telephone [facility] MEDICINE 230 [place] [address] Patito Wilhelm MD 230 [place] [address] Med Refill Social History Tobacco Use Types [...] encounter Miscellaneous Notes * Telephone Encounter - Seema Hennessy - 03/04/2025 1:12 PM EST TC from pt requesting medication refill. Medications needing refill : oxyCODONE-acetaminophen (Percocet) 5-325 MG tablet To be sent to: [facility]/pharmacy #[id number] [place], [place] - [address] [place] [address] documented in this encounter Plan of Treatment Upcoming Encounters Date Type Department Care Team (Late st Contact Info) Description 04/09/2025 11:00 AM EST Office Visit [facility] MEDICINE [address] [place] [address] 05/07/2025 1:30 PM EST Office Visit [facility] MEDICINE [address] [place] [address] Patito Wilhelm MD [address] [place] [address] 05/10/2025 1:00 PM EST Medication Management [facility] MEDICINE [address] [place] [address] Wilber Christie, PharmD [address] [place] [address] documented as of this encounter Goals Goal Patient Goal Type Associated Problems Recent Progress Patient-Stated? Author Blood Pressure < 140/90 Blood Pressure 120/60(2024 3:07 PM EDT) Wilber Mishra PharmD Hemoglobin A1c < 7 Result Component 6.1( 3:10 PM EDT) No Wilber Christie PharmD Help patients manage their type 2 diabetes [...] chronic kidney disease No Patito Wilhelm MD documented as of this encounter Visit Diagnoses [...] 03/04/2025 Patient has chronic kidney disease 03/04/2025 Assessment Noted Time PHQ-9 Depression Total Score: 10 025 3:13 PM EDT documented as of this encounter Care Teams Composite Technician Relationship Specialty Start Date End Date Patito Wilhelm MD 230 [place] [address] PCP - General Family Medicine 11/13/18 Wilber Christie, PennyD [address] [place] [address] Pharmacist Internal Medicine 01/28/23 documented as of this encounter
--- OUTSIDE RECORDS SUMMARY | 2025-04-02 17:13 | XMS_ITS | Encounter Summary ---
Author Organization [employer] Address 75 [facility] 7t [place] [address] Care Team Providers Care Concessionist Name Role Phone Patito Wilhelm MD Primary Care Provider [phone] Wilber Christie PharmD Unavailable [phone] Reason for Visit * Reason Onset Date Comments Med Refill 09/14/2024 Encounter Details Date Type Department Care Team (Late st Contact Info) Description 09/14/2024 Telephone [facility] MEDICINE 230 [place] [address] Patito Wilhelm MD 230 [place] [address] Med Refill Social History Tobacco Use Types [...] 5-325 MG tablet To be sent to: [facility]/pharmacy #[id number] [place], [place] - [address] [place] [address] documented in this encounter Plan of Treatment Upcoming Encounters Date Type Department Care Team ([facility] st Contact Info) Description 04/09/2025 11:00 AM EST Office Visit [facility] MEDICINE [address] [place] [address] 05/07/2025 1:30 PM EST Office Visit [address] [address] Patito Wilhelm MD [address] [place] [address] 05/10/2025 1:00 PM EST Medication Management [facility] MEDICINE [address] [place] [address] Wilber Christie, PharmD [address] [place] [address] documented as of this encounter Goals Goal [...] documented as of this encounter Care Teams Concessionist Relationship Specialty Start Date End Date Patito Wilhelm MD [address] [place] [address] PCP - General Family Medicine 11/13/18 Wilber Christie PharmD [address] [place] [address] Pharmacist Internal Medicine 01/28/23 documented as of this encounter
--- OUTSIDE RECORDS SUMMARY | 2025-04-02 17:13 | XMS_ITS | Encounter Summary ---
Author Organization [employer] Address 75 [facility] 7t [place] [address] Care Team Providers Care Dry House Wheeler Name Role Phone Patito Wilhelm MD Primary Care Provider [phone] Wilber Christie PharmD Unavailable [phone] Reason for Visit * Reason Onset Date Comments Appointment Request 10/24/2023 Encounter Details Date Type Department Care Team ([facility] st Contact Info) Description 10/24/2023 Telephone [facility] MEDICINE 230 [place], [place] [phone] Patito Wilhelm MD 230 [place], [place] [phone] Appointment Request Social History Tobacco Use Types [...] Description 04/09/2025 11:00 AM EST Office Visit [address] [address] 05/07/2025 1:30 PM EST Office Visit [address] [address] Patito Wilhelm MD [address] [place] [address] 05/10/2025 1:00 PM EST Medication Management [address] [address] Wilber Christie PharmD [address] [place] [address] documented as of this encounter Goals Goal [...] documented as of this encounter Care Teams Dry House Wheeler Relationship Specialty Start Date End Date Patito Wilhelm MD 230 [place] [address] PCP - General Family Medicine 11/13/18 Wilber Christie, Kaia 230 [place] [address] Pharmacist Internal Medicine 01/28/23 documented as of this encounter
--- OUTSIDE RECORDS SUMMARY | 2025-04-02 17:13 | XMS_ITS | Encounter Summary ---
Author Organization [employer] Address 75 [facility] 7 [place] [address] Care Team Providers Care Barrel Planer Name Role Phone Patito Wilhelm MD Primary Care Provider [phone] Wilber Christie PharmD Unavailable [phone] Reason for Visit * Reason Onset Date Comments Call Back Request 03/04/2025 Encounter Details Date Type Department Care Team ([facility] st Contact Info) Description 03/04/2025 Telephone [facility] MEDICINE 230 [place] [address] Patito Wilhelm MD 230 [place] [address] Call Back Request Social History Tobacco Use Types Packs/Day [...] Telephone Encounter - Patito Wilhelm MD - 03/04/2025 5:42 PM EST Called patient and gave an instruction. * Telephone Encounter - Kristin David RN - 03/04/2025 3:26 PM EST TC placed to the pt who states that she has a hernia repair surgery tomorrow at [facility] Surgeryand was inquiring as to how much insulin should be administered tonight and tomorrow. Pt is currently on Novolog and is directed to take 25 units twice daily. Pt states she already called [facility] who directed her to inquire with PCP. Pt advised that this will be sent to PCP for advisement but message may not be ready immediately as PCP is seeing pt. * Telephone Encounter - Seema Hennessy - 03/04/2025 1:06 PM EST Tc from pt having surgery tomorrow pt want to know who much insulin take today . Please contact pt at [phone] documented in this encounter Plan of Treatment Upcoming Encounters Date Type Department Care Team (Late st Contact Info) Description 04/09/2025 11:00 AM EST Office Visit [address] [address] 05/07/2025 1:30 PM EST Office Visit [address] [address] Patito Wilhelm MD [address] [place] [address] 05/10/2025 1:00 PM EST Medication Management [address] [address] Wilber Christie, Kaia [address] [place] [address] documented as of this encounter Goals Goal [...] Plan Weekly blood pressure task No Seema Hnenessy Weekly blood pressure task Care Plan Weekly [...] documented as of this encounter Care Teams Barrel Planer Relationship Specialty Start Date End Date Patito Wilhelm MD [address] [place] [address] PCP - General Family Medicine 11/13/18 Wilber Christie, PharmD [address] [place] [address] Pharmacist Internal Medicine 01/28/23 documented as of this encounter
--- OUTSIDE RECORDS SUMMARY | 2025-04-02 17:13 | XMS_ITS | Encounter Summary ---
Author Organization [employer] Address 75 [facility] 7t [place] [address] Care Team Providers Care Maintenance Leader Name Role Phone Patito Wilhelm MD Primary Care Provider [phone] Wilber Christie PharmD Unavailable [phone] Reason for Visit * Reason Onset Date Comments Medication Question 03/19/2025 Encounter Details Date Type Department Care Team ([facility] st Contact Info) Description 03/19/2025 Telephone [facility] MEDICINE 230 [place], [place] [phone] Patito Wilhelm MD 230 [place], [place] [phone] Medication Question Social History Tobacco Use Types [...] encounter Miscellaneous Notes * Telephone Encounter - Kristie Rush - 03/19/2025 1:20 PM EST Tc from pt stating insurance as of April will not cover meclizine (Antivert) 25 MG tablet , [t requesting a call back regarding alternative Contact pt at [phone] documented in this encounter Plan of Treatment Upcoming Encounters Date Type Department Care Team (Late st Contact Info) Description 04/09/2025 11:00 AM EST Office Visit [facility] MEDICINE [address] [place] [address] 05/07/2025 1:30 PM EST Office Visit [address] [address] Patito Wilhelm MD [address] [place] [address] 05/10/2025 1:00 PM EST Medication Management [address] [address] Wilber Christie, PharmD 230 [place] [address] documented as of this encounter Goals Goal [...] Care Plan Weekly blood pressure task No Tohsa Phillips RN Patient has chronic kidney disease [...] Weekly blood pressure task No Charmaine Carreon LM Weekly blood pressure task Care Plan Weekly blood pressure task No Charmaine Carreon MARY Patient has chronic kidney disease Care Plan Patient has chronic kidney disease No Charmaine Carreon [facility] Patient has chronic kidney disease Care Plan Patient has chronic kidney disease No Charmaine Carreon [facility] Weekly blood pressure task Care Plan Weekly blood pressure task No Kristie Goldberg Weekly blood pressure task Care Plan Weekly blood pressure task No Kristie Goldberg Patient has chronic kidney disease Care Plan Patient has chronic kidney disease No Kristie Goldberg Patient has chronic kidney disease Care Plan Patient has chronic kidney disease No Kristie Goldberg documented as of this encounter Visit Diagnoses [...] 03/19/2025 Patient has chronic kidney disease 03/19/2025 Assessment Noted Time PHQ-9 Depression Total Score: 10 025 3:13 PM EDT documented as of this encounter Care Teams Maintenance Leader Relationship Specialty Start Date End Date Patito Wilhelm MD 230 [place] [address] PCP - General Family Medicine 11/13/18 Wilber Christie, PennyD [address] [place] [address] Pharmacist Internal Medicine 01/28/23 documented as of this encounter
--- OUTSIDE RECORDS SUMMARY | 2025-04-02 17:13 | XMS_ITS | Encounter Summary ---
Author Organization [employer] Address [address] [place] [address] 7 [place] [address] Care Team Providers Care Aluminum Shingle Roofer Name Role Phone Patito Wilhelm MD Primary Care Provider [phone] Wilber Christie PharmD Unavailable [phone] Reason for Referral * Consultation (Routine) - Closed Specialty Diagnoses / Procedures Referred By [facility] t Referred To Contact Pharmacy Diagnoses Primary hypertension Type 2 diabetes mellitus with both eyes affected by mild nonproliferative retinopathy without macular edema, with long-term current use of insulin (HCC) Patito Wilhelm MD [address] [place] [address] Phone: tel: fax: Referral ID Status Reason Start Date Expiration Date V isits Requested Visits Authorized [id number] Closed Consult and Treat 02/09/2024 02/08/2025 6 6 Encounter Details Date Type Department Care Team (Late st Contact Info) Description 02/09/2024 Orders Only [facility] MEDICINE [address] [place] [address] Patito Wilhelm MD 230 [place], [place] [phone] Primary hypertension (Primary Dx); Type 2 diabetes mellitus with both eyes affected by mild nonproliferative retinopathy without macular edema, with long-term current use of insulin ([facility]/HCC) Social History Tobacco Use Types Packs/Day Years [...] Description 04/09/2025 11:00 AM EST Office Visit [facility] MEDICINE [address] [place] [address] 05/07/2025 1:30 PM EST Office Visit [facility] MEDICINE [address] [place] [address] Patito Wilhelm MD [address] [place] [address] 05/10/2025 1:00 PM EST Medication Management [facility] MEDICINE [address] [place] [address] Wilber Christie PharmD 230 [place] [address] Scheduled Referrals Name Type Priority Associated Diagnoses Orde r Schedule Referral to Pharmacy CDTM Outpatient Referral Routine Primary hypertension Type 2 diabetes mellitus with both eyes affected by mild nonproliferative retinopathy without macular edema, with long-term current use of insulin ([facility]) Ordered: 02/09/2024 documented as of this [...] edema, with long-term current use of insulin ([facility]) documented in this encounter Additional Health Concerns Assessment Noted Time PHQ-9 Depression Total Score: 11 024 1:39 PM EDT documented as of this encounter Care Teams Aluminum Shingle Roofer Relationship Specialty Start Date End Date Patito Wilhelm MD [address] [place] [address] PCP - General Family Medicine 11/13/18 Wilber Christie PharmD [address] [place] [address] Pharmacist Internal Medicine 01/28/23 documented as of this encounter
--- OUTSIDE RECORDS SUMMARY | 2025-04-02 17:13 | XMS_ITS | Encounter Summary ---
Author Organization [employer] Address 75 [facility] 7t [place] [address] Care Team Providers Care Heavy Duty Mechanic Farm Equipment Name Role Phone Patito Wilhelm MD Primary Care Provider [phone] Wilber Christie PharmD Unavailable Reason for Visit * Reason Onset Date Comments triage 06/22/2022 Encounter Details Date Type Department Care Team ([facility] st Contact Info) Description 06/22/2022 Telephone [facility] MEDICINE 230 [place], [place] [phone] Patito Wilhelm MD 230 [place], [place] [phone] triage Social History Tobacco Use Types Packs/Day [...] 11:00 AM EST Office Visit [facility] MEDICINE [address] [place] [phone] 05/07/2025 1:30 PM EST Office Visit [facility] MEDICINE [address] [place] [address] Patito Wilhelm MD [address] [place] [address] 05/10/2025 1:00 PM EST Medication Management [facility] MEDICINE [address] [place] [address] Wilber Christie, PharmD [address] [place] [address] documented as of this encounter Visit Diagnoses Not on filedocumented in this encounter Care Teams Heavy Duty Mechanic Farm Equipment Relationship Specialty Start Date End Date Patito Wilhelm MD [address] [place] [address] PCP - General Family Medicine 11/13/18 Wilber Christie, PharmD [address] [place] [address] Pharmacist Internal Medicine 01/28/23 documented as of this encounter
--- OUTSIDE RECORDS SUMMARY | 2025-04-02 17:13 | XMS_ITS | Encounter Summary ---
Author Organization [employer] Address [address] [place] [address] 7t [place] [address] Care Team Providers Care Drafter Engineering Name Role Phone Patito Wilhelm MD Primary Care Provider [phone] Wilber Christie PharmD Unavailable Reason for Visit * Reason Comments Med Refill Encounter Details Date Type Department Care Team (Late Contact Info) Description 08/11/2022 Refill [facility] MEDICINE 230 [place] [address] Racquel Fu MD [address] [place] [address] Social History Tobacco Use Types Packs/Day Years [...] Description 04/09/2025 11:00 AM EST Office Visit [facility] [place] [address] 05/07/2025 1:30 PM EST Office Visit [address] [address] Patito [place] [address] 05/10/2025 1:00 PM EST Medication Management [facility] [place] [address] Wilber Christie, PharmD [address] [place] [address] documented as of this encounter Visit Diagnoses Not on filedocumented in this encounter Additional Health Concerns Assessment Noted Time PHQ-9 Depression Total Score: 6 07/27/19 1:10 PM EDT documented as of this encounter Care Teams Drafter Engineering Relationship Specialty Start Date End Date Patito Wilhelm MD [address] [place] [address] PCP - General Family Medicine 11/13/18 Wilber Christie, PharmD [address] [place] [address] Pharmacist Internal Medicine 01/28/23 documented as of this encounter
--- OUTSIDE RECORDS SUMMARY | 2025-04-02 17:13 | XMS_ITS | Clinical Summary ---
Author Organization [employer] Address [address] [place] [address] [address] [place] [address] Care Team Providers Care Manager Policy Name Role Phone Patito Givens MD Primary Care Provider [phone] Wilber Christie PharmD Unavailable [phone] Allergies Active Allergy Reactions Criticality Noted Date [...] polyneuropathy, with long-term current use of insulin ([facility]) Apply 1 Pad topically 2 times [...] in each nostril as directed 30 mL Active albuterol (Ventolin HFA) 108 (90 Base) [...] long-term current use of insulin ([facility]) Check blood glucose 3 times daily [...] long-term current use of insulin ([facility]) INJECT 25 UNITS subcutaneously TWICE DAILY 15 mL 025 Active insulin pen needle (B-D ULTRAFINE III SHORT PEN) 31G X 8 mm misc USE DIRECTED 3 TIMES A DAY 100 each 5 03/21/2 025 Active rosuvastatin (Crestor) 20 MG tabletIndications: [...] pain. 28 g 1 025 11/27 Active montelukast (Singulair) 10 MG tabletIndications: Moderate persistent asthma without complication TAKE 1 TABLET BY MOUTH EVERY DAY IN THE MORNING 90 tablet 3 025 Active cholecalciferol VITAMIN D (Vitamin D-3) 50 MCG (2000 UT) capsule TAKE 1 CAPSULE (50 MCG) BY MOUTH ONCE PER DAY. 90 capsule 3 025 Active B Complex Vitamins (Vitamin B Complex) capsule TAKE 1 CAPSULE BY MOUTH TWICE A DAY 90 each 3 025 Active pregabalin (Lyrica) 100 MG capsuleIndications :Meralgia paresthetica, left Take 1 capsule by mouth, two times every day. 60 capsule 025 Active cholestyramine (Questran) 4 g packet Take 1 dose by mouth once daily as needed for diarrhea 90 packet 1 025 Active Tirzepatide (Mounjaro) 2.5 MG/0.5ML solution auto-injectorIndic [...] dizziness or nausea. 30 tablet 3 Active naloxone (Narcan) 4 mg/0.1 mL nasal spray Administer 1 spray (4 mg) into affected nostril(s) if needed for opioid reversal. May repeat every 2-3 minutes if needed, alternating nostrils, until medical assistance becomes available. 2 each 3 Active oxyCODONE-acetamin ophen (Percocet) 5-325 MG tabletIndications: Chronic back pain, unspecified back location, unspecified back pain laterality Take 1 tablet by mouth every 12 (twelve) hours if needed for severe pain for up to 28 days. 56 tablet 025 04/29 Active naloxone (Narcan) 4 mg/0.1 mL nasal spray Administer 1 spray (4 mg) into affected nostril(s) if needed for opioid reversal. May repeat every 2-3 minutes if needed, alternating nostrils, until medical assistance becomes available. 2 each 1 025 03/12 Discontinued( Reorder (will not trigger notification to Pharmacy)) oxyCODONE-acetamin ophen (Percocet) 5-325 MG tabletIndications: Chronic back pain, unspecified back location, unspecified back pain laterality Take 1 tablet by mouth every 12 (twelve) hours if needed for severe pain for up to 28 days. 56 tablet 025 03/04 Discontinued( Reorder (will not trigger notification to Pharmacy)) oxyCODONE-acetamin ophen (Percocet) 5-325 MG tabletIndications: Chronic back pain, unspecified back location, unspecified back pain laterality Take 1 tablet by mouth every 12 (twelve) hours if needed for severe pain for up to 28 days. 56 tablet 025 04/01 Discontinued( Reorder (will not trigger notification to [...] arthroscopic surgery on 06/29/2024 - Following with [facility] orthopedic Burning sensation 11/27/2024 Assessment & Plan (11/27/2024 5:33 PM EDT): Neuropathy? C/w pregabaline as prescribed I will prescribe local lidocaine cream F/u with PCP Long-term current use of opiate analgesic 2024 Overview (10/09/2024): Medication: Percocet 5/325mg Q12H PRN Indication: lumbar radiculopathy, fibromyalgia Last BOBCAT DRIVER/LABOR Agreement: 07/06/24 BOBCAT DRIVER/LABOR visits Q3-4 months Assessment & Plan (03/16/2025 5:18 PM EST): Timeline: - 09/11/24: Group - utox/pill count as expected - 10/09/24: Group - utox/pill count as expected - 12/11/24: Group - utox/pill count as expected -03/12/25: Group - utox/pill count as expected Assessment & Plan (12/11/2024 2:01 PM EDT): [...] dizziness Lumbosacral radiculopathy 06/01/2023 Assessment & Plan (03/16/2025 5:19 PM EST): - Cont following with specialists - Good engagement and participation with Group Medical Visit model - Encouraged multifactorial approach to pain control including pharm and non- pharm modalities - UTOX and Pill count as expected Assessment & Plan (02/08/2025 11:28 PM EDT): -Seen by supervisor painting shipyard on 03/30/23 -Received lumbar facet block bilateral [...] Plan (10/29/2024 12:57 PM EDT): -Seen by supervisor painting shipyard on 03/30/23 -Received lumbar facet block bilateral [...] Plan (12/12/2023 4:47 AM EDT): -Seen by supervisor painting shipyard on 03/30/23 -Received lumbar facet block bilateral on 04/28/22 -Received DEE L5-S1 on 04/19/23 -Continue judicious use of oxycodone-APAP and pregabalin -Continue topical diclofenac Assessment & Plan (12/12/2023 4:55 AM EDT): >>ASSESSMENT AND PLAN FOR LUMBOSACRAL RADICULOPATHY WRITTEN ON 06/04/2023 5:53 AM BY PATITO GIVENS MD -Seen by supervisor painting shipyard on 03/30/23 -Received lumbar facet block bilateral [...] by Dr. Stratton in 2015 - Cured Assessment & Plan (04/02/2023 6:04 [...] PM EDT): - recommended to check with supervisor painting shipyard if she can receive steroid injection Assessment & Plan (08/09/2022 5:26 AM EDT): - recommended to check with supervisor painting shipyard if she can receive steroid injection Chronic interstitial cystitis 08/14/2012 Assessment & Plan (08/30/2023 2:38 PM EDT): -Followed by urologist [facility], last seen on 02/22/22 -Prescribed tamsulosin, no longer taking Assessment & Plan (04/02/2023 6:05 AM EST): -Followed by urolognahed [facility], last seen on 02/22/22 -Prescribed tamsulosin, no longer taking Assessment & Plan (05/14/2022 5:02 PM EST): -Followed by urolognahed [facility], last seen on 02/22/22 -Prescribed tamsulosin Chronic low back pain 08/14/2012 Assessment & Plan (02/08/2025 11:23 PM EDT): -Seen by supervisor painting shipyard on 02/11/23 -Received lumbar facet block bilateral on 04/28/22 -Received DEE L5-S1 on 04/19/23 -Continue judicious use of oxycodone-APAP and pregabalin -Continue topical diclofenac -Continue following with supervisor painting shipyard - Continue attending chronic pain group -Encouraged to continue PT Assessment & Plan (11/10/2024 6:27 AM EDT): -Seen by supervisor painting shipyard on 02/11/23 -Received lumbar facet block bilateral on 04/28/22 -Received DEE L5-S1 on 04/19/23 -Continue judicious use of oxycodone-APAP and pregabalin -Continue topical diclofenac -Continue following with supervisor painting shipyard - Continue attending chronic pain group -Encouraged to continue PT Assessment & Plan (12/12/2023 4:52 AM EDT): -Seen by supervisor painting shipyard on 02/11/23 -Received lumbar facet block bilateral on 04/28/22 -Received DEE L5-S1 on 04/19/23 -Continue judicious use of oxycodone-APAP and pregabalin -Continue topical diclofenac -Continue following with supervisor painting shipyard -Encouraged to continue PT Assessment & Plan (08/30/2023 2:41 PM EDT): -Seen by supervisor painting shipyard on 02/11/23 -Received lumbar facet block bilateral on 04/28/22 -Received DEE L5-S1 on 04/19/23 -Continue judicious use of oxycodone-APAP and pregabalin -Continue topical diclofenac -Continue following with supervisor painting shipyard -Encouraged to continue PT Assessment & Plan (06/04/2023 6:04 AM EST): -Seen by supervisor painting shipyard on 02/11/23 -Received lumbar facet block bilateral on 04/28/22 -Received DEE L5-S1 on 04/19/23 -Continue judicious use of oxycodone-APAP and pregabalin -Continue topical diclofenac -Continue following with supervisor painting shipyard -Encouraged to continue PT Assessment & Plan (04/02/2023 6:10 AM EST): -Seen by supervisor painting shipyard on 02/11/23 -Received lumbar facet block bilateral on 04/28/22 -Scheduled for DEE L5-S1 soon -Continue judicious use of oxycodone-APAP and pregabalin -Continue topical diclofenac Assessment & Plan (01/10/2023 5:38 PM EDT): -Seen by supervisor painting shipyard on 12/16/22, yet mainly for left knee pain -Received lumbar facet block bilateral on 04/28/22 -Continue judicious use of oxycodone-APAP and pregabalin -Continue topical diclofenac Assessment & Plan (12/26/2022 5:36 AM EDT): -Seen by supervisor painting shipyard on 02/04/22. -Received lumbar facet block bilateral on 04/28/22 Assessment & Plan (05/14/2022 5:00 PM EST): -Seen by supervisor painting shipyard on 02/04/22. -Received lumbar facet block bilateral on 04/28/22 Hypertension 11/25/2011 Assessment & Plan (02/18/2025 7:16 AM EST): -Goal BP < 130/80 per ACC/AHA guideline (Treatment threshold >= 130/80 ) -History of questionable medication adherence -In a setting of chronic pain -Co-managed with pharmacist, nurse staff community health, and hydroelectric powerplant supervisor -s/p 24-hour BP monitoring by nephrology; recommended sleep study and increased metoprolol -Continue checking home BP -Continue working on lifestyle modification -Continue metoprolol succinate 75 mg daily -Continue Valsartan to 320mg daily -Treatment Hx: lisinpril was discontinued due to cough;Losartan was self- discontinued due to dry mouth; amlodipine was self-discontinued due to dry mouth; metoprolol was increased by hydroelectric powerplant supervisor from 50 mg to 75 mg. Recently BP has been stable, so Wing Mailer Machine Operator tapered Metoprolol down to 25 mg, but pt started to have palpitations and self increased back to 50 mg. Assessment & Plan (10/29/2024 12:56 PM EDT): -Goal BP < 140/90 per JNC-8 and < 130/80 per ACC/AHA guideline (Treatment threshold >= 130/80 ) -History of questionable medication adherence -In a setting of chronic pain -Co-managed with pharmacist, nurse staff community health, and hydroelectric powerplant supervisor -s/p 24-hour BP monitoring by nephrology; recommended sleep study and increased metoprolol -Continue checking home BP -Continue working on lifestyle modification -Continue metoprolol succinate 75 mg daily -Continue Valsartan to 320mg daily -Treatment Hx: lisinpril was discontinued due to cough;Losartan was self- discontinued due to dry mouth; amlodipine was self-discontinued due to dry mouth; metoprolol was increased by hydroelectric powerplant supervisor from 50 mg to 75 mg. Recently BP has been stable, so Wing Mailer Machine Operator tapered Metoprolol down to 25 mg, but pt started to have palpitations and self increased back to 50 mg. Assessment & Plan (03/27/2024 3:57 PM EST): -Goal BP < 140/90 per JNC-8 and < 130/80 per ACC/AHA guideline (Treatment threshold >= 130/80 ) -History of questionable medication adherence -In a setting of chronic pain -Co-managed with pharmacist, nurse staff community health, and hydroelectric powerplant supervisor -s/p 24-hour BP monitoring by nephrology; recommended sleep study and increased metoprolol -Continue checking home BP -Continue working on lifestyle modification -Continue metoprolol succinate 75 mg daily -Continue Valsartan to 320mg daily -Treatment Hx: lisinpril was discontinued due to cough;Losartan was self- discontinued due to dry mouth; amlodipine was self-discontinued due to dry mouth; metoprolol was increased by hydroelectric powerplant supervisor from 50 mg to 75 mg. Recently BP has been stable, so Wing Mailer Machine Operator tapered Metoprolol down to 25 mg, but pt started to have palpitations and self increased back to 50 mg. Assessment & Plan (12/12/2023 4:46 AM EDT): -Goal BP < 140/90 per JNC-8 and < 130/80 per ACC/AHA guideline (Treatment threshold >= 130/80 ) -History of questionable medication adherence -In a setting of chronic pain -Co-managed with pharmacist, nurse staff community health, and hydroelectric powerplant supervisor -s/p 24-hour BP monitoring by nephrology; recommended sleep study and increased metoprolol -Continue checking home BP -Continue working on lifestyle modification -Continue metoprolol succinate 75 mg daily -Continue Valsartan to 320mg daily -Treatment Hx: lisinpril was discontinued due to cough;Losartan was self- discontinued due to dry mouth; amlodipine was self-discontinued due to dry mouth; metoprolol was increased by hydroelectric powerplant supervisor from 50 mg to 75 mg Assessment & Plan (08/30/2023 2:37 PM EDT): -Goal BP < 140/90 per JNC-8 and < 130/80 per ACC/AHA guideline (Treatment threshold >= 130/80 ) -Questionable medication adherence -Co-managed with pharmacist and nurse staff community health -Continue checking home BP -Continue working on [...] -Questionable medication adherence -Co-managed with pharmacist and nurse staff community health -Continue checking home BP -Continue working on [...] -Questionable medication adherence -Co-managed with pharmacist and nurse staff community health -Continue checking home BP -Continue working on [...] Plan (02/08/2025 11:28 PM EDT): -Followed by [facility] pulmonology, last seen on 10/10/2024, -Currently prescribed [...] Plan (11/10/2024 6:30 AM EDT): -Followed by [facility] pulmonology, last seen on 10/10/2024, -Currently prescribed [...] Plan (03/27/2024 3:55 PM EST): -Followed by [facility] pulmonology, last seen on 03/28/23, switched mometasone / formoterol (Dulera) to budesonide / formoterol (Symbicort) -Questionable adherence to medications according to refill history, she is unaware of budesonide / formoterol (Symbicort) prescription -Reviewed her medications today and discussed about the importance of adherence; Advised to milk pickup truck driver her budesonide / formoterol (Symbicort) and get her lab done prior to next appointment with correctional therapy teacher -Currently prescribed budesonide / formoterol (Symbicort) and tiotropium (Spiriva) as maintenance -Continue albuterol HFA prn as rescue -Treatment Hx: Previously on fluticasone (Flovent), which was changed to mometasone / formoterol (Dulera). Mometasone / formoterol (Dulera) was changed to budesonide / formoterol (Symbicort) most recently -Reviewed the importance of medication adherence and recommended to contact pharmacist and correctional therapy teacher for clarification of currently prescribed inhalers. Assessment & Plan (12/06/2023 1:45 PM EDT): -Followed by [facility] pulmonology, last seen on 03/28/23, switched mometasone / formoterol (Dulera) to budesonide / formoterol (Symbicort) -Questionable adherence to medications according to refill history, she is unaware of budesonide / formoterol (Symbicort) prescription -Reviewed her medications today and discussed about the importance of adherence; Advised to milk pickup truck driver her budesonide / formoterol (Symbicort) and get her lab done prior to next appointment with correctional therapy teacher -Currently prescribed budesonide / formoterol (Symbicort) and tiotropium (Spiriva) as maintenance -Continue albuterol HFA prn as rescue -Treatment Hx: Previously on fluticasone (Flovent), which was changed to mometasone / formoterol (Dulera). Mometasone / formoterol (Dulera) was changed to budesonide / formoterol (Symbicort) most recently -Reviewed the importance of medication adherence and recommended to contact pharmacist and correctional therapy teacher for clarification of currently prescribed inhalers. Assessment & Plan (08/30/2023 2:37 PM EDT): -Followed by [facility] pulmonology, last seen on 03/28/23, switched mometasone / formoterol (Dulera) to budesonide / formoterol (Symbicort) -Questionable adherence to medications according to refill history, she is unaware of budesonide / formoterol (Symbicort) prescription -Reviewed her medications today and discussed about the importance of adherence; Advised to milk pickup truck driver her budesonide / formoterol (Symbicort) and get her lab done prior to next appointment with correctional therapy teacher -Currently prescribed budesonide / formoterol (Symbicort) and tiotropium (Spiriva) as maintenance -Continue albuterol HFA prn as rescue -Treatment Hx: Previously on fluticasone (Flovent), which was changed to mometasone / formoterol (Dulera). Mometasone / formoterol (Dulera) was changed to budesonide / formoterol (Symbicort) most recently -Reviewed the importance of medication adherence and recommended to contact pharmacist and correctional therapy teacher for clarification of currently prescribed inhalers. Assessment & Plan (06/04/2023 5:58 AM EST): -Followed by [facility] pulmonology, last seen on 03/28/23, switched mometasone / formoterol (Dulera) to budesonide / formoterol (Symbicort) -Questionable adherence to medications according to refill history, she is unaware of budesonide / formoterol (Symbicort) prescription -Reviewed her medications today and discussed about the importance of adherence; Advised to milk pickup truck driver her budesonide / formoterol (Symbicort) and get her lab done prior to next appointment with correctional therapy teacher -Currently prescribed budesonide / formoterol (Symbicort) and tiotropium (Spiriva) as maintenance -Continue albuterol HFA prn as rescue -Treatment Hx: Previously on fluticasone (Flovent), which was changed to mometasone / formoterol (Dulera). Mometasone / formoterol (Dulera) was changed to budesonide / formoterol (Symbicort) most recently -Reviewed the importance of medication adherence and recommended to contact pharmacist and correctional therapy teacher for clarification of currently prescribed inhalers. Assessment & Plan (04/02/2023 5:57 AM EST): -Followed by [facility] pulmonology, last seen on 11/30/21 -Questionable adherence to medications according to refill history -Reviewed her medications today and discussed about the importance of adherence -Continue mometasone / formoterol (Dulera) and tiotropium (Spiriva) as maintenance -Continue albuterol HFA prn as rescue -Urged to schedule appt with correctional therapy teacher; pt verbalized understanding Assessment & Plan (01/10/2023 2:06 PM EDT): -Followed by [facility] pulmonology, last seen on 11/30/21 -Questionable adherence to medications according to refill history -Reviewed her medications today and discussed about the importance of adherence -Continue Dulera and Spiriva as maintenance -Continue albuterol HFA prn as rescue -Consider referring to MTM -Urged to schedule appt with correctional therapy teacher; pt verbalized understanding Assessment & Plan (12/26/2022 5:30 AM EDT): -Followed by [facility] pulmonology, last seen on 11/30/21 -Questionable adherence to medications according to refill history -Reviewed her medications today and discussed about the importance of adherence -Continue Dulera and Spiriva as maintenance -Continue albuterol HFA prn as rescue -Consider referring to MTM -Urged to schedule appt with correctional therapy teacher; pt verbalized understanding Assessment & Plan (08/09/2022 5:23 AM EDT): -Followed by [facility] pulmonology, last seen on 11/30/21 -Reviewed her medications today and discussed about the importance of adherence -Continue Dulera and Spiriva as maintenance - Continue albuterol HFA prn as rescue -Consider referring to MT Assessment & Plan (05/14/2022 4:42 PM EST): -Followed by [facility] pulmonology, last seen on 11/30/21 -Mild wheezing today -Pt is being prescribed Dulera and Spiriva as maintanance, but patient is uncertain and medication refill history suggests questionable adherence. -Consider referring to MT Type 2 diabetes mellitus 09/20/2011 Assessment & [...] C per pt. -Check the satus of Freeyle Rachael -Last eye exam: 10/24/24 -Last foot [...] FreeStyle Rachael -Last eye exam: 05/14/21 at [facility] eye care, no retinopathy -Last foot exam: 10/20/21 -Last microalbumin test: 10/20/21 UACR 12 Last lipid profile: 10/20/21 TC 197; 142; HDL 64; LDL 108. Last dental exam: Immunizations: up to date Knee pain 09/20/2011 Assessment & Plan (06/02/2023 9:41 AM EST): - Following with [facility] Dial Marker, last seen in Jan 2023 - XR on 12/16/22 showed : mild Osteoarthritis - Received intraarticular Euflexxa (hyaluronate derivative) Injection x 3 doses in 2022 - Continue current Tx plan per supervisor painting shipyard Assessment & Plan (04/02/2023 6:14 AM EST): - Following with [facility] Dial Marker, last seen in Jan 2023 - XR on 12/16/22 showed : mild Osteoarthritis - Received intraarticular Euflexxa (hyaluronate derivative) Injection x 3 doses in 2022 - Continue current Tx plan per supervisor painting shipyard Assessment & Plan (01/10/2023 5:41 PM EDT): - Following with [facility] Dial [facility]er, last seen on 12/16/22, started on Euflexxa injection - XR on 12/16/22 showed : mild Osteoarthritis - Currently receiving intraarticular Euflexxa (hyaluronate derivative) Injection - Continue current Tx plan per supervisor painting shipyard Resolved Problems Problem Noted Date Diagnosed Date [...] organization. Date Type Department Care Team Description 04/01/2025 Refill [facility] [address] [place], [place] [phone] Tosha Phillips RN Chronic back pain, unspecified back location, unspecified back pain laterality 04/01/2025 Telephone [facility] [address] [place] [address] Patito Givens MD Med Refill 03/26/2025 Telephone [facility] [address] [place], [place] [phone] Patito Givens MD Durable Medical Equipment (DME: [facility] DME Request 10 in one ) 03/22/2025 Results Follow-Up [facility] [address] [place], [place] [phone] Marco AChristianne alberts FNP MR Brain w/o Contrast 03/19/2025 Telephone [facility] [address] [place], [place] [phone] Patito Givens MD Medication Question 03/12/2025 11:00 AM EST Office Visit [address] [address] Kori Carrillo, LANCE CREWMEMBER/MLRS SERGEANT Lumbosacral radiculopathy (Primary Dx); Long-term current use of opiate analgesic 03/12/2025 Travel 03/05/2025 Orders Only GENERIC EXTERNAL DATA DEPARTMENT Provider, Generic External Data 03/04/2025 Orders Only [address] [phone] Patito Givens MD 03/04/2025 Refill [facility] [address] [place] [address] Tosha Phillips RN Chronic back pain, unspecified back location, unspecified back pain laterality 03/04/[address] [phone] Patito Givens MD Med Refill 03/04/[address] [address] Patito Givens MD Call Back Request 02/22/2025 3:00 PM EST Office Visit [facility] [address] [place] [phone] Christianne Strickland, LANCE CREWMEMBER/MLRS SERGEANT Dizziness; BPPV (benign paroxysmal positional vertigo), unspecified laterality 02/22/2025 Telephone [facility] [address] [place] [phone] Patito Givens MD Nurse Triage 02/22/2025 Travel 02/05/2025 Refill [facility] [address] [place] [address] Tosha Phillips RN Chronic back pain, unspecified back location, unspecified back pain laterality 02/05/[address] [phone] Patito Givens MD Med Refill 02/04/2025 3:00 PM EDT Office Visit [address] [address] Patito Givens MD Primary hypertension (Primary Dx); [...] of other site 02/04/2025 Travel 02/01/2025 Telephone [facility] [address] [place] [address] Patito Givens MD chart prep 01/26/2025 Refill [facility] [address] [place], [place] [phone] Patito Givens MD 01/24/2025 Orders Only [facility] [address] [place] [address] Patito Givens MD Type 2 diabetes mellitus with both eyes affected by mild nonproliferative retinopathy without macular edema, with long-term current use of insulin (HCC) (Primary Dx); Primary hypertension; Moderate persistent asthma without complication 01/23/2025 Travel 01/04/2025 Refill [facility] [address] [place] [address] Patito Givens MD Type 2 diabetes mellitus with both eyes affected by mild nonproliferative retinopathy without macular edema, with long-term current use of insulin (CMS/HCC) 01/04/2025 Refill [facility] [address] [place], [place] [phone] Tosha Phillips RN Chronic back pain, unspecified back location, unspecified back pain laterality 01/04/2025 Telephone [facility] [address] [place], [place] [phone] Patito Givens MD Med Refill from Last 3 Months Immunizations Immunization Administration [...] 04/09/2025 11:00 AM EST Office Visit [facility] [address] [place] [address] 05/07/2025 1:30 PM EST Office Visit [facility] [address] [place] [address] Patito Givens MD [address] [place] [address] 05/10/2025 1:00 PM EST Medication Management [facility] [address] [place] [address] Wilber Christie, PharmD [address] [place] [address] Health Maintenance Due Date Last Done Comments CT Colonography 1965 FIT DNA/Cologuard 1965 FIT 1965 FOBT 1965 HIV Screening 1965 Sigmoidoscopy 1965 Alcohol/Substance Use Screening 1977 Pap Smear 1986 HPV/Cotest 1995 Diabetes: Urine Protein Screening 12/10/2023 12/09/2022, 10/20/2021, 01/24/2020 COVID-19 Vaccine ( season) 2024 03/21/2023, 01/19/2022, 09/25/2021, Additional history exists SDOH Screening 03/27/2025 03/27/2024 Hepatitis A Vaccines [...] 6.1( 3:10 PM EDT) No Wilber Christie, PharmKit Help patients manage their type 2 diabetes [...] Plan Weekly blood pressure task No Patito Givens MD Weekly blood pressure task Care Plan Weekly blood pressure task No Patito Givens MD Patient has chronic kidney disease Care Plan Patient has chronic kidney disease No Pattio Givens MD Patient has chronic kidney disease Care Plan Patient has chronic kidney disease No Patito Givens MD Weekly blood pressure task Care Plan [...] Weekly blood pressure task No Charmaine Carreon [facility] Weekly blood pressure task Care Plan Weekly blood pressure task No Charmaine Carreon [facility] Patient has chronic kidney disease Care Plan Patient has chronic kidney disease No Charmaine Carreon [facility] Patient has chronic kidney disease Care Plan Patient has chronic kidney disease No Charmaine Carreon [facility] Weekly blood pressure task Care Plan Weekly [...] Care Plan Weekly blood pressure task No [facility] [place] Christianne [facility] Weekly blood pressure task Care Plan Weekly blood pressure task No [facility] [place] [facility] Patient has chronic kidney disease Care Plan Patient has chronic kidney disease No [place] [facility] Patient has chronic kidney disease Care Plan Patient has chronic kidney disease No [facility] Weekly blood pressure task Care Plan Weekly blood pressure task No Luana Hennessy Weekly blood pressure task Care Plan Weekly blood pressure task No Sabine Hennessyilda Patient has chronic kidney disease Care Plan Patient has chronic kidney disease No Sabine Hennessyilda Patient has chronic kidney disease Care Plan Patient has chronic kidney disease No Luana Hennessy Weekly blood pressure task [...] Plan Weekly blood pressure task No Colon Kwame Dominga Weekly blood pressure task Care Plan Weekly blood pressure task No Colon Puente, Dominga Patient has chronic kidney disease Care Plan Patient has chronic kidney disease No Colon Puente, Dominga Patient has chronic kidney disease Care Plan Patient has chronic kidney disease No Colon Puente, Dominga Weekly blood pressure task Care Plan Weekly blood pressure task No Tosha Phillips RN Weekly blood pressure task Care Plan Weekly blood pressure task No Tosha Phillips RN Patient has chronic kidney disease Care Plan Patient has chronic kidney disease No Tosha Phillips RN Patient has chronic kidney disease Care Plan Patient has chronic kidney disease No Tosha Phillips RN Procedures Procedure Name Priority Date/Time Associated Diagnosis Comments MR BRAIN WO CONTRAST Urgent 03/20/2025 7:32 PM EST Dizziness POCT VINICIO-14 URINE DRUG SCREEN Routine 03/12/2025 11:49 AM EST Lumbosacral radiculopathy Long-term current use of opiate analgesic GLUCOSE, WHOLE BLOOD Routine 03/05/2025 12:00 PM EST POCT GLUCOSE Routine 02/22/2025 3:13 PM EST [...] with long-term current use of insulin (HCC) LIPID PANEL, STANDARD Routine 07/06/2024 11:02 AM EDT BI MAMMOGRAM SCREENING TOMOSYNTHESIS BILATERAL Routine 03/27/2024 1:50 PM EST HM COLONOSCOPY Routine 10/19/2023 ALBUMIN, RANDOM URINE W/CREATININE Routine 12/09/2022 1:02 PM EDT Type 2 diabetes mellitus with diabetic polyneuropathy, with long-term current use of insulin (CMS/HCC) from Last 3 Months or Most Recently Relevant to Health Maintenance Results * MR Brain w/o Contrast (03/20/2025 7:32 PM EST) Anatomical Region Laterality Modality Brain Magnetic Resonan ce 03/20/2025 7:32 PM EST Narrative 03/20/2025 7:33 PM EST [address] [address] Magnetic Resonance Report Signed Patient: Ameena Tejada MR#: [id number] 33 : 1965 Acct:[id number] Age/Sex: 60 / F ADM Date: 03/20/25 Loc: HO.MRI Attending Dr: Christianne Strickland LANCE CREWMEMBER/MLRS SERGEANT [facility] Date of Service: 03/20/25 Procedure(s): MR head/brain wo con Accession Number(s): [id number] cc: Patito Givens MD; [facility] Reason for Exam: 59 y.o F with new headache and dizziness CLINICAL HISTORY: 59 y.o F with new headache and dizziness MR Brain without gadolinium Comparison: None provided Findings: Degraded by motion artifact. No restricted diffusion. No intra-axial mass or hemorrhage. Age appropriate cerebral volume loss. Patchy high FLAIR signal within the periventricular and subcortical white matter. No midline shift. No hydrocephalus. Vascular flow voids are intact. Orbital contents are unremarkable. The sinuses and mastoid air cells are clear. No focal bone lesion. IMPRESSION: No acute findings. This document has been electronically signed by: Beto Velez MD on 03/20/2025 19:32:12 Dictated By: Beto Velez MD Signed By: <Electronically signed by Beto Velez MD in OV> 03/20/251931 DD/ 31 TD/TT: 03/20/251931 Panel Gluer: Procedure Note Donotuseinterpreter, Image - 03/20/2025 [place] [address] Magnetic Resonance Report Signed Patient: King Tejada#: [id number] 33 : 1965Acct:[id number] Age/Sex: 60 / FADM Date: 03/20/25 Loc: HO.MRI Attending Dr: Christianne Strickland [facility] Ordering Physician: Sharps ChapelChristianne [employer]ANCE CREWMEMBER/MLRS SERGEANT Date of Service: 03/20/25 Procedure(s): MR head/brain wo con Accession Number(s): [id number] cc: Patito Givens MD; [facility] Reason for Exam: 59 y.o F with new headache and dizziness CLINICAL HISTORY: 59 y.o F with new headache and dizziness MR Brain without gadolinium Comparison: None provided Findings: Degraded by motion artifact. No restricted diffusion. No intra-axial mass or hemorrhage. Age appropriate cerebral volume loss. Patchy high FLAIR signal within the periventricular and subcortical white matter. No midline shift. No hydrocephalus. Vascular flow voids are intact. Orbital contents are unremarkable. The sinuses and mastoid air cells are clear. No focal bone lesion. IMPRESSION: No acute findings. This document has been electronically signed by: Beto Velez MD on 03/20/2025 19:32:12 Dictated By: Beto Velez MD Signed By: <Electronically signed by Beto Velez MD in OV> 03/20/251931 DD/ 31 TD/TT: 03/20/251931 Panel Gluer: [facility] IMG MRI PROCEDURES Edited Res ult - Final * (ABNORMAL) POCT VINICIO-14 Urine Drug Screen (03/12/2025 11:49 AM EST) THC Negative Negative Cocaine Screen, Urine Negative Negative Opiate Screen, Urine Negative Negative Methamphetamine Screen Urine Negative Negative Amphetamine Screen, Urine Negative Negative Benzodiazepines Screen, Urine Negative Negative Barbiturate Screen, Urine Negative Negative Methadone Screen, Urine Negative Negative Buprenophine Screen, Urine Negative Negative TCA, Urine Negative Negative MDMA Urine Negative Negative ng/mL Oxycodone Screen, Urine Positive(A) Negative Comment:Rx Phencyclidine (PCP), Urine Negative Negative Propoxyphene, Urine Negative Negative Fentanyl, Urine Negative Negative Urine Urine specimen obtained by clean catch procedure / Unknown 03/12/2025 11:49 AM EST Narrative Tosha Phillips RN - 03/12/2025 11:49 AM EST .UTOX cup Lot#[id number] Exp. 03/18/26 Internal Pass Control Patito Givesn MD POINT OF CARE TEST ENTER/EDIT OR DERABLES Final Result * (ABNORMAL) Glucose, Whole Blood (03/05/2025 12:00 PM EST) Glucose, Whole Blood 132(H) 60 - 115 mg/dL [facility] Comment:METER #: [id number] 03/05/2025 12:0 0 PM EST 03/05/2025 12:04 PM EST us Generic External Data Provider LAB BLOOD ORDERAB LES Final Result [facility] [address] [place] [phone] * POCT Glucose (02/22/2025 3:13 PM EST) Only the most recent of2 resultswithin the time period is included. Glucose Blood, POC 197 60 - 200 mg/dL Blood Capillary blood specimen / Unknown 02/22/2025 3:13 PM EST [facility] LANCE CREWMEMBER/MLRS SERGEANT POINT OF CARE TEST ENTER/EDIT ORDERABLES Final Result * CT Abdomen Pelvis w/o Contrast (02/16/2025 10:03 AM EDT) Anatomical Region Laterality Modality Body, Pelvis, Abdomen Computed T omography 02/16/2025 10:0 3 AM EDT Narrative 02/18/2025 10:12 AM EST [address] [address] [address] Scan Report Signed Patient: Ameena Tejada MR#: [id number] 33 : 1965 Acct:[id number] Age/Sex: 59 / F ADM Date: 02/16/25 Loc: HO.CT Attending Dr: Marcell Saez MD Ordering Physician: Marcell Saez MD Date of Service: 02/16/25 Procedure(s): CT abdomen pelvis wo IV con Accession Number(s): [id number] cc: Marcell Saez MD; Patito Givens MD Report Number: [id number]: Total DLP = 458.00 mGy-cm Reason for [...] by: Reyes Rueda MD 02/18/2025 10:09 AM [facility] Dictated By: Reyes Rueda MD Signed By: <Electronically signed by Reyes Rueda MD in OV> 02/18/25 1009 DD/ 1003 TD/TT: 02/16/25 1018 Panel Gluer: ALEXANDRA Procedure Note Donotuseinterpreter, Image - 02/18/[address] [address] [address] Scan Report Signed Patient: King Tejada#: [id number] 33 : 1965Acct:[id number] Age/Sex: 59 / FADM Date: 02/16/25 Loc: HO.CT Attending Dr: Marcell Saez MD Ordering Physician: Marcell Saez MD Date of Service: 02/16/25 Procedure(s): CT abdomen pelvis wo IV con Accession Number(s): [id number] cc: Marcell Saez MD; Patito Givens MD Report Number: [id number]: Total DLP = 458.00 mGy-cm Reason for [...] by: Reyes Rueda MD 02/18/2025 10:09 AM [facility] Dictated By: Reyes Rueda MD Signed By: <Electronically signed by Reyes Rueda MD in OV> 02/18/25 1009 DD/ 1003 TD/TT: 02/16/25 1018 Panel Gluer: ALEXANDRA [facility] External Provider IMG CT PROCEDURES Edited Result - Final * (ABNORMAL) POCT Hgb A1c (02/04/2025 3:10 PM EDT) Hemoglobin A1C 6.1(A) 4.0 - 5.7 % QC Media Lot # [id number] Lot# Expiration Date [id number] Blood 02/04/2025 3:10 PM EDT Patito Givens MD POINT OF CARE TEST ENTER/EDIT OR DERABLES Final Result * (ABNORMAL) Lipid Panel, Standard (07/06/2024 11:02 AM EDT) Triglycerides 143 <150 mg/dL [facility] Comment:Desirable Triglyceri de: less than 150 mg/dLBorderline High Triglyceride 150-199 mg/dLHigh Triglyceride: 200-499 mg/dLVery High Triglyceride: greater than or equal to 5OO mg/dL Cholesterol 171 <200 mg/dL [facility] Comment:Desirable Cholestero l: less than 200 mg/dLBorderline High Cholesterol: 200-239 mg/dLHigh Cholesterol: greater than 239 mg/dL LDL Cholesterol Calculated 100(H) <100 mg/dL [facility] Comment:Desirable LDL: less than 100 mg/dLNear Optimal/Above Optimal LDL: 110- 129 mg/dLBorderline High LDL: 130-159 mg/dLHigh LDL: 160-189 mg/dLVery High LDL: greater than or equal to 190 mg/dL HDL Cholesterol 43 >40 mg/dL [facility] Comment:Desirable HDL: great er than 40 mg/dL Note: This HDL assay may give artificially low results in patients with liver disease. 07/06/2024 11:0 2 AM EDT 07/06/2024 1:13 PM EDT us Patito Givens MD LAB BLOOD ORDERABLES Final Resul t [facility] [address] [place] [address] [phone] * BI Mammogram Screening Tomosynthesis Bilateral (03/27/2024 1:50 PM EST) Anatomical Region Laterality Modality Breast Bilateral Mammography 03/27/2024 1:50 PM EST Narrative 04/02/2024 3:31 PM EST [address] [place] [address] Mammography Report Signed Patient: Ameena Tejada MR#: [id number] 33 : 1965 Acct:[id number] Age/Sex: 59 / F ADM Date: 03/27/24 Loc: JIM Attending Dr: Patito Givens MD Ordering Physician: Patito Givens MD Results: 2Benign F indings Date of Service: 03/27/24 Follow Up: 1 Year From [facility] Mammogram Procedure(s): MM tomosynthesis screening BI Accession Number(s): [id number] cc: Patito Givens MD EXAMINATION: MM SCREENING [...] by: Mare Cardona DO 04/02/2024 03:28 PM [facility] Dictated By: Mare Cardona DO Signed By: <Electronically signed by Mare Cardona DO in OV> 04/02/24 1528 DD/ 1350 TD/TT: 03/27/24 1405 Panel Gluer: Procedure Note Donotuseinterpreter, Image - 04/02/20[facility] [address] [place] [address] Mammography Report Signed Patient: King Tejada#: [id number] 33 : 1965Acct:[id number] Age/Sex: 59 / FADM Date: 03/27/24 Loc: FAVIOLA Attending Dr: Patito Givens MD Ordering Physician: Patito Givens MDResults: 2Benign F indings Date of Service: 03/27/24Follow Up: 1 Year From [facility] Mammogram Procedure(s): MM tomosynthesis screening BI Accession Number(s): [id number] cc: Patito Givens MD EXAMINATION: MM SCREENING [...] 04/02/24 1528 DD/ 1350 TD/TT: 03/27/24 1405 Panel Gluer: Patito Givens MD IM BI PROCEDURES Edited Result - Final * Hm Colonoscopy (10/19/2023) Colonoscopy Normal Normal Narrative Christine Ramirez - 10/19/2023 Recommended 10 year follow up . see external hospital admission note on 10/19/2023 Historical Provider HEALTH MAINTENANCE Final Result * Albumin, Random Urine W/Creatinine (12/09/2022 1:02 PM EDT) Creatinine, Urine 170.12 mg/dL [facility] Microalbumin Urine 15.0 mg/L [facility] Microalbum Creatinine Ratio Ur 8.8 <30 ug/mg cr [facility] Comment:Albumin/Creatinine R atio Reference Ranges: Normal: < 30 ug/mg creatinine Microalbuminuria: 30 - 300 ug/mg creatinineClinical Albuminuria: > 300 ug/mg creatinine Urine 12/09/2022 1:02 PM EDT 12/09/2022 3:56 PM EDT Patito Givens MD LAB URINE ORDERABLES Final Resul t [facility] [address] [place] [address] [phone] from Last 3 Months or Most Recently Relevant to Health Maintenance Additional Health Concerns Active Problems Noted Date [...] 04/01/2025 Patient has chronic kidney disease 04/01/2025 Insurance [facility] < 65 [place] [id number] Care Teams Manager Policy Relationship Specialty Start Date End Date Patito Givens MD [address] [place] [address] PCP - General Family Medicine 11/13/18 Wilber Christie, PharmD [address] [place] [address] Pharmacist Internal Medicine 01/28/23
--- OUTSIDE RECORDS SUMMARY | 2025-04-02 17:13 | XMS_ITS | Encounter Summary ---
Author Organization [employer] Address [address] [facility] [address] [place] [address] Care Team Providers Care Public Works Manager Name Role Phone Patito Wilhelm MD Primary Care Provider [phone] Wilber Christie PharmD Unavailable [phone] Reason for Visit * Reason Comments Med Refill Encounter Details Date Type Department Care Team (Late st Contact Info) Description 03/27/2024 Refill [facility] [address] [place] [address] Patito Wilhelm MD [address] [place] [address] Type 2 diabetes mellitus with diabetic polyneuropathy, with long-term current use of insulin ([facility]) Social History Tobacco Use Types Packs/Day Years [...] Description 04/09/2025 11:00 AM EST Office Visit [address] [address] 05/07/2025 1:30 PM EST Office Visit [address] [address] Patito Wilhelm MD [address] [place] [address] 05/10/2025 1:00 PM EST Medication Management [address] [address] Wilber Christie, Kaia [address] [place] [phone] documented as of this encounter Goals Goal Patient Goal Type Associated Problems Recent Progress Patient-Stated? Author Blood Pressure < 140/90 Blood Pressure 120/60(2024 3:07 PM EDT) No Wilber Christie, Kaia Hemoglobin A1c < 7 Result Component 6.1(10/20/202 5 3:10 PM EDT) No Wilber Christie, PharmD documented as of this encounter Visit Diagnoses Diagnosis Type 2 diabetes mellitus with diabetic polyneuropathy, with long-term current use of insulin (HCC) documented in this encounter Additional Health Concerns Assessment Noted Time PHQ-9 Depression Total Score: 11 024 1:39 PM EDT documented as of this encounter Care Teams Public Works Manager Relationship Specialty Start Date End Date Patito Wilhelm MD [address] [place] [address] PCP - General Family Medicine 11/13/18 Wilber Christie, PharmD [address] [place] [address] Pharmacist Internal Medicine 01/28/23 documented as of this encounter
--- OUTSIDE RECORDS SUMMARY | 2025-04-02 17:13 | XMS_ITS | Encounter Summary ---
Author Organization [employer] Address [address] [place] [address] [address] [place] [address] Care Team Providers Care City Superintendent Name Role Phone Patito Wilhelm MD Primary Care Provider [phone] Wilber Christie PharmD Unavailable [phone] Encounter Details Date Type Department Care Team (Latest Contact Info) Description 03/24/2020 Abstract [facility] CONVERSIONS Dental, Provider, DDS Social History [...] Description 04/09/2025 11:00 AM EST Office Visit [facility] [address] [place] [address] 05/07/2025 1:30 PM EST Office Visit [facility] [address] [place] [address] Patito Wilhelm MD [address] [place] [address] 05/10/2025 1:00 PM EST Medication Management [facility] [address] [place] [address] Wilber Christie, PharmD [address] [place] [address] documented as of this encounter Visit Diagnoses Not on filedocumented in this encounter Care Teams City Superintendent Relationship Specialty Start Date End Date Patito Wilhelm MD [address] [place] [address] PCP - General Family Medicine 11/13/18 Wilber Christie, PennyD [address] [place] [phone] Pharmacist Internal Medicine 01/28/23 documented as of this encounter
--- OUTSIDE RECORDS SUMMARY | 2025-04-02 17:13 | XMS_ITS | Encounter Summary ---
Author Organization [employer] Address [address] [facility] 7t [place] [address] Care Team Providers Care Price Accuracy Supervisor Name Role Phone Patito Wilhelm MD Primary Care Provider [phone] Wilber Christie PharmD Unavailable [phone] Reason for Visit * Reason Onset Date Comments Appointment Request 10/19/2023 Encounter Details Date Type Department Care Team ([facility] st Contact Info) Description 10/19/2023 Telephone [facility] [address] [place], [place] [phone] Patito Wilhelm MD [address] [place], [place] [phone] Appointment Request Social History Tobacco Use Types [...] week with PCP. Please contact pt at [phone] documented in this encounter Plan of Treatment Upcoming Encounters Date Type Department Care Team (Late st Contact Info) Description 04/09/2025 11:00 AM EST Office Visit [address] [address] 05/07/2025 1:30 PM EST Office Visit [address] [address] Patito Wilhelm MD [address] [place] [address] 05/10/2025 1:00 PM EST Medication Management [address] [address] Wilber Christie PharmD [address] [place] [address] documented as of this encounter Goals Goal [...] documented as of this encounter Care Teams Price Accuracy Supervisor Relationship Specialty Start Date End Date Patito Wilhelm MD [address] [place] [address] PCP - General Family Medicine 11/13/18 Wilber Christie, PharmD [address] [place] [address] Pharmacist Internal Medicine 01/28/23 documented as of this encounter
--- OUTSIDE RECORDS SUMMARY | 2025-04-02 17:13 | XMS_ITS | Patient Health Record ---
Author Organization [facility] Address [address] [place] [address] Care Team Providers Care Bee Robber Name Role Phone Choco GANDHI, Patito Primary Care Provider Leonardo Harding [phone] Allergies Allergen (clinical drug ingredient) Drug/Non Drug Allergy documented on EMR Reaction Allergy Type Onset Date Status aspirin ASA (uncoded) Unknown Allergy Active Avandia (uncoded) Unknown Allergy Ac tive Levaquin (uncoded) Unknown Allergy A ctive azithromycin zithromax (uncoded) Unknown Allergy Active Flexeril Unknown Drug Allergy Active Glucotrol Unknown Drug Allergy Active Reason For Referral No Information Medications Medication SIG (Take, Route, Frequency, Duration) Notes Start Date End Date Status ZyrTEC 10 MG Tablet 1 tablet Orally Once a day; Duration: 30 day(s) Active Trulicity Active Azelastine & Fluticasone 137 & 50 MCG/ACT Therapy Pack as directed Nasally Active Nitroglycerin Active Dulera 200-5 MCG/ACT Aerosol 2 puffs Inhalation Twice a day Active Prevalite 4 GM/DOSE Powder USE 1/2-1 SCOOP 1-2X A DAY FOR DIARRHEA ORALLY 30 DAY(S); Duration: 90 Active Albuterol Sulfate (sensor) 108 (90 Base) MCG/ACT Aerosol Powder Breath Activated 1 puff as needed Inhalation every 4 hrs Active Cholestyramine 4 GM/DOSE Powder 1/2 to 1 scoop Orally QD-BID for diarrhea Active Docusate Sodium 100 MG Capsule TAKE 1 CAPSULE BY MOUTH EVERY DAY NEEDED Oral; Duration: 30 Active Ventolin HFA 108 (90 Base) MCG/ACT Aerosol Solution TAKE 2 PUFFS BY MOUTH EVERY 4 TO 6 HOURS NEEDED Inhalation; Duration: 30 Active Albuterol Sulfate HFA 108 (90 Base) MCG/ACT Aerosol Solution TAKE 2 PUFFS BY MOUTH EVERY 4 TO 6 HOURS NEEDED Inhalation; Duration: 16 Active MiraLax (colon prep) 17 GM/SCOOP Powder 1 238Gm bottle mixed with Gatorade or Crystal Light Orally begin at 5:00 p.m. the day before the procedure; Duration: 1 day 07/20/2023 Active Atorvastatin Calcium 10 MG Tablet 1 tablet Orally Once a day Active Dulcolax (colon prep) 5 MG Tablet Delayed Release take at 3:00 p.m and 7:00p.m. Orally two tablets twice a day for one day; Duration: 1 day 07/20/2023 Active Flonase 50 MCG/ACT Suspension 1 spray in each nostril Nasally Once a day Active Nitroglycerin 0.4 MG Tablet Sublingual as directed Sublingual as directed Active amLODIPine Besylate 5 MG Tablet TAKE 1 TABLET BY MOUTH EVERY DAY Oral; Duration: 30 Active Omeprazole 20 MG Capsule Delayed Release 1 Orally Once a day every morning; Duration: 90 days Active Losartan Potassium 50 MG Tablet 1 tablet Orally Once a day Active Metoprolol Succinate ER 50 MG Tablet Extended Release 24 Hour TAKE 1 TABLET BY ORAL ROUTE EVERY DAY Orally Once a day Active Dicyclomine HCl 10 MG Capsule 1 or 2 capsules Orally Every 6 hours if needed for abdominal cramps/discomfort; Duration: 30 days Active oxyCODONE-Acetaminophen 5-325 MG Tablet 1 tablet as needed Orally TID Active Melatonin 3 MG Tablet 1 tablet at bedtim e as needed with food Orally Once a day Active Carafate 1 GM Tablet 1 tablet on an empt y stomach Orally TID; Duration: 30 day(s) 01/01/2019 Not-Taking/P RN ProAir HFA 108 (90 Base) MCG/ACT Aerosol Solution 2 puffs as needed Inhalation every 6 hrs Active NovoLOG 100 UNIT/ML Solution 70/30 Subcutaneous as directed Active Singulair 10 MG Tablet 1 tablet Orally O nce a day Active Vitamin B Complex - Capsule as directed Orally Active Valsartan-hydroCHLOROth iazide 160-25 MG Tablet 1 tablet Orally Once a day; Duration: 30 day(s) 07/21/2022 Active Vitamin D-3 125 MCG (5000 UT) Tablet as directed Orally Activ e DULoxetine HCl 20 MG Capsule Delayed Release Particles 1 capsule Orally Twice a day; Duration: 30 day(s) Active Pregabalin 100 MG Capsule 1 capsule Orally Once a day Active Immunizations Vaccine Route Administration Date Status Comme nts Influenza Unknown 01/23/2018 Administered Influenza Unknown 01/16/2019 Administered Influenza Unknown 12/31/2020 Administered Influenza Unknown 02/02/2022 Administered Influenza Unknown 03/08/2023 Administered Social History Social History Additional Details Category Social Info Options Details Miscellaneous: Marital status: Occupation: unemployed Section Notes: She does not smoke nor use a ny significant amounts of alcohol She does not smoke nor use a ny significant amounts of alcohol She does not smoke nor use a ny significant amounts of alcohol She does not smoke nor use a ny significant amounts of alcohol She does not smoke nor use a ny significant amounts of alcohol She does not smoke nor use a ny significant amounts of alcohol She does not smoke nor use a ny significant amounts of alcohol She does not smoke nor use a ny significant amounts of alcohol She does not smoke nor use a ny significant amounts of alcohol She does not smoke nor use a ny significant amounts of alcohol She does not smoke nor use a ny significant amounts of alcohol She does not smoke nor use a ny significant amounts of alcohol She does not smoke nor use a ny significant amounts of alcohol Problems Problem Type SNOMED Code ICD Code Onset Dates Problem Status W/U Status Risk Notes Problem Colon cancer screening (593503026) Colon cancer screening (Z12.11) Active confirmed Problem Diverticular disease of colon (251977900) Diverticulosis of large intestine without perforation or abscess without bleeding (K57.30) Active confirmed Problem Irritable bowel syndrome with diarrhea (806158457) Irritable bowel syndrome with diarrhea (K58.0) Active confirmed Problem Right upper quadrant pain (757427735) Right upper quadrant pain (R10.11) Active confirmed Problem Nausea (227279503) Nausea (R11.0) Active confir med Problem Gastroesophageal reflux disease without esophagitis (778292427) Gastroesophageal reflux disease without esophagitis (K21.9) Active confirmed Problem Chronic hepatitis C (450881736) Chronic hepatitis C without hepatic coma (B18.2) Active confirmed Problem Chronic hepatitis C (618523452) Chronic hepatitis C (B18.2) Active confirmed Problem Right upper quadrant pain (107555837) Abdominal pain, right upper quadrant (R10.11) Active confirmed Problem Belching (61992602) Belching (R14.2) Active con firmed Problem History of hepatitis C (38850773496666) History of hepatitis C (Z86.19) Active confirmed Problem Right upper quadrant pain (987377260) RUQ abdominal pain (R10.11) Active confirmed Problem Irritable bowel syndrome (56995907) Irritable bowel syndrome, unspecified type (K58.9) Active confirmed Problem Gallbladder disease (28178489) Gallbladder sludge (K82.8) Active confirmed Problem Hepatic fibrosis (disorder) (35020284) Liver fibrosis (K74.00) Active confirmed Encounters Encounter Location Date Provider Diagnosis [facility] [address] [place] [address] 07/19/2024 Leonardo Stratton Plan Of Treatment Pending Test Test Name Order Date LIVER PROFILE 06/12/2013 LIVER PROFILE 05/29/2015 LIVER PROFILE 03/17/2018 LIVER PROFILE 03/13/2019 LIVER PROFILE 03/05/2020 LIVER PROFILE 05/27/2021 LIVER PROFILE 07/21/2022 LIVER PROFILE 07/20/2023 LIVER PROFILE 12/19/2014 LIVER PROFILE 06/01/2015 LIVER PROFILE 02/08/2015 CBC w DIFF 02/08/2015 CBC w DIFF 12/19/2014 CBC w DIFF 07/21/2022 CBC w DIFF 07/20/2023 CBC w DIFF 05/27/2021 PROTHROMBIN TIME (PT, INR) 05/27/2021 ALPHA-FETOPROTEIN,TUMOR MARKER 0 ALPHA-FETOPROTEIN,TUMOR MARKER 9 ALPHA-FETOPROTEIN,TUMOR MARKER 8 ALPHA-FETOPROTEIN,TUMOR MARKER 7 ALPHA-FETOPROTEIN,TUMOR MARKER 6 ALPHA-FETOPROTEIN,TUMOR MARKER 4 ALPHA-FETOPROTEIN,TUMOR MARKER 3 HEPATITIS C VIRAL LOAD 07/21/2022 HEPATITIS C VIRAL LOAD 07/20/2023 HEPATITIS C VIRAL LOAD 02/16/2017 HEPATITIS C VIRAL LOAD 05/29/2015 HEPATITIS C VIRAL LOAD 03/17/2018 HEPATITIS C VIRAL LOAD 03/13/2019 HEPATITIS C VIRAL LOAD 05/27/2021 HEPATITIS C VIRAL LOAD 12/19/2014 HEPATITIS C VIRAL LOAD 02/08/2015 HEPATITIS C VIRAL LOAD 06/01/2015 NUC GASTRIC ANTRUM EMPTYING 07/20/2023 NUC HIDA SCAN 04/07/2017 NUC HIDA SCAN 01/18/2018 US ABD 03/05/2020 US LIVER BIOPSY CORE GUIDE 04/21/2011 HCV LIVER FIBROSIS, FIBRO TEST 2 US ABDOMEN COMP WITH ELASTOGRAPHY 2021 US ABDOMEN COMP WITH ELASTOGRAPHY 2022 Prothrombin Time INR 07/20/2023 Alpha Fetoprotein 05/27/2021 Liver Fibrosis Pnl 07/21/2022 Liver Fibrosis Pnl 07/20/2023 US abdomen comp w elastography 4 Future Test Test Name Order Date COLONOSCOPY 06/12/2013 COLONOSCOPY 07/20/2023 Next Appt Details Provider Name:Leonardo Stratton , 05/31/2025 02:20:00 PM, [address], [address], [place], [address], Insurance Providers Payer Name Payer Address Payer Phone Subscriber Number Group Number Insured Name Patient Relationship to Insured Coverage Start Date Coverage End Date [facility] [address] Attn Claims JOSE Workman [phone] [id number] JAMEL NASSAR Self - patient is the [...] with hiatal hernia Irritable bowel syndrome Denies [place], stroke, and renal disease Fatty liver EGD [...]
== END 2025-04-02 13:11 | disposition home or self-care (01) ==
LOC: HO.MAMMO 13:10
PROVIDERS: PCP Family Medicine; Visit Provider Family Medicine
DX: Z12.31 Encounter for screening mammogram for malignant neoplasm of breast (principal)
CPT/HCPCS: 77063; 77067

== ENCOUNTER → 2025-04-02 13:30 | Outpatient (BNV) | payer OTHER, SELFPAY | PROVIDERS: PCP Family Medicine; Visit Provider Internal Medicine | DX: Z12.31 Encounter for screening mammogram for malignant neoplasm of breast (principal) | CPT/HCPCS: 77063; 77067 ==

== ENCOUNTER 2025-04-04 14:30 | Outpatient (AMB) | payer OTHER, SELFPAY ==
--- OUTSIDE RECORDS SUMMARY | 2023-10-19 03:30 | XMS_ITS ---
Author Organization [facility] Address [address] [place] [address] Care Team Providers Care Stress Test Technician Name Role Phone Choco GANDHI, Patito Primary Care Provider Leonardo Harding [phone] REASON FOR VISIT screening Problems Problem Type SNOMED Code ICD Code Onset Dates Problem Status W/U Status Risk Notes Problem Diverticular disease of colon (204324731) Diverticulosis of large intestine without perforation or abscess without bleeding (K57.30) Active confirmed Encounters Encounter Location Date Provider Diagnosis [facility] Outpatient [address] [place], [place] [phone] 10/19/2023 Leonardo Stratton Encounter for scre ening [...] 02:20:00 PM, [address], [address], [place], [address], Progress Notes * NASSARANDERSONB: 5 (60 yo F)Acc No.[id number]:10/19/2023 COLON WITH MAC Patient: Eli WaqarSTEPANALLAN JAMEL Provider: Layton Stratton MD :1965 A ge:58 Y S ex:Female Date:10/19/2023 Address:[address] [place] [address] [address], [id number] Pcp:Patito Wilhelm MD Subjective: * Chief Complaints: * S creening Assessment: * Assessment: 1. E ncounter for screening colonoscopy - Z12.11 (Primary) 2 . D iverticulosis of large intestine without perforation or abscess without bleeding - K57.30 3 .?Other hemorrhoids - K64.8 Plan: * Procedure Codes: 4 5378 DIAGNOSTIC COLONOSCOPY Billing Information: * Procedure Codes: 00299 DIAGNOSTIC COLONOSCOPY. * The named appointment provid er may or may not be the originator of this progress note, and it is not deemed complete until electronically signed by the appointment provider. Sign off status: Pending * Provider: Layton Stratton MD Date: 0 10/19/2023 Generated for Nory funk/Eulalia/Lanitting on: 1 06/05/2024 03:25 PM EST
--- OUTSIDE RECORDS SUMMARY | 2024-07-19 04:20 | XMS_ITS ---
Author Organization [facility] Address [address] [place] [address] Care Team Providers Care Global Sourcing Manager Name Role Phone Choco GANDHI, Patito Primary Care Provider Leonardo Harding [phone] REASON FOR VISIT Patient presents today for hepatitis c Encounters Encounter Location Date Provider Diagnosis [facility] [address] [place] [address] 07/19/2024 Leonardo Stratton Plan Of Treatment Next Appt Details Provider Name:Leonardo Stratton , 05/31/2025 02:20:00 PM, [address], [address], [place], [address], Progress Notes * ANDERSON NASSARB: 5 (60 yo F)Acc No.[id number]:07/19/2024 Progress Notes Patient: JAMEL RICHARD Provider: Layton Stratton MD :1965 A ge:59 Y S ex:Female Date:07/19/2024 Address:[address] [place] [address] [address] [id number] Pcp:Patito Wilhelm MD Subjective: * Chief Complaints: * P atient presents today for hepatitis c * The named appointment provid er may or may not be the originator of this progress note, and it is not deemed complete until electronically signed by the appointment provider. Sign off status: Pending * Provider: Layton Stratton MD Date: 0 07/19/2024 Generated for Nory funk/Eulalia/eTransmitting on: 06/05/2024 03:25 PM EST
--- NOTE | 2025-04-04 14:38 | A.OFFVIS_ITS ---
Vital Signs 04/04/25 14:42 Height 5 ft Weight 150 lb BMI 29.3 Intake Visit Reasons: OV- LT Shoulder 06/29/24 DR paz/ azam Intake Note: Ameena is a 60 year old female who presents with with complaints of left shoulder pain. She did undergo left shoulder arthroscopic surgery on 06/29/2024. She has taken Tylenol and anti-inflammatory medicines which gave her mild relief. She denies any fevers or chills. She denies any weakness. She reports increased discomfort when lifting her left hand above shoulder height. Allergies rosiglitazone (Avandia) Allergy (Severe, Verified 03/20/25 11:56) rash/hepatitis C cyclobenzaprine (From FLEXERIL) Allergy (Intermediate, Verified 03/20/25 11:56) HIVES latex (LATEX) Allergy (Intermediate, Verified 03/20/25 11:56) RASH azithromycin (From Zithromax) Allergy (Mild, Verified 03/20/25 11:56) SWELLING glipizide (From Glucotrol) Allergy (Mild, Verified 03/20/25 11:56) SWELLING levofloxacin (From Levaquin) Allergy (Mild, Verified 03/20/25 11:56) leg swelling aspirin (Aspirin) Allergy (Unknown, Verified 03/20/25 11:56) reaction unknown-was years ago Flexeril Allergy (Severe, Uncoded 03/20/25 11:56) Rash Medication List - Last Reconciled 04/04/25 by Pravin Guardado MD acetaminophen 500 mg PO Q6H PRN albuterol sulfate 90 mcg/actuation 2 puffs inhalation Q4-6H PRN azelastine 1 spray intranasal DAILY PRN budesonide-formoterol 160-4.5 mcg/actuation (Symbicort) 2 puffs inhalation BID celecoxib (Celebrex) 200 mg PO Q12H PRN cholecalciferol (vitamin D3) 50 mcg PO DAILY dicyclomine 10 - 20 mg PO Q6H PRN ibuprofen 600 mg PO Q6H PRN insulin asp prt-insulin aspart 100 unit/mL (70-30) (Novolog Mix 70-30FlexPen U-100) 25 units subcut BID meclizine 25 mg PO TID PRN metoprolol succinate ER 75 mg PO BEDTIME montelukast 10 mg PO QPM naloxone 4 mg/actuation 1 spray intranasal DAILY nitroglycerin 0.4 mg sublingual Q5M PRN omeprazole 20 mg PO DAILY oxycodone-acetaminophen 5-325 mg 1 tab PO Q6H PRN oxycodone-acetaminophen 5-325 mg (Percocet) 1 tab PO Q4-6H PRN pregabalin 75 mg PO BID semaglutide (Ozempic) 2 mg subcut QWEEK valsartan-hydrochlorothiazide 320-25 mg 1 tab PO DAILY vitamin B complex (Vitamins B Complex tablet) 1 tab PO DAILY PFSH Medical History (Updated 03/20/25 @ 13:53 by Pravin Guardado MD) Incisional hernia Right sided abdominal pain NIKI (obstructive sleep apnea) Bronchitis Lumbar radiculopathy Obesity Macromastia Meralgia paraesthetica Insomnia Palpitations Arthritis Back pain Diabetes History of abdominal hernia GERD (gastroesophageal reflux disease) Irritable bowel syndrome Interstitial cystitis Jaundice Hepatitis C Depression Neuropathy Numbness History of headache Vertigo Asthma Elevated cholesterol HTN (hypertension) Subcutaneous mass of left foot Calcaneal spur, unspecified foot Hernia Surgical History (Updated 03/26/25 @ 10:40 by Ravindra Baxter PA-C) History of incisional hernia repair (03/05/25) Hx of arthroscopy of shoulder Hx of hysterectomy Hx of elbow surgery Hx of removal of cyst Hx of foot surgery Hx of section History of bladder surgery H/O colonoscopy History of cholecystectomy History of carpal tunnel surgery of right wrist History of carpal tunnel surgery of left wrist H/O tubal ligation History of repair of rotator cuff History of liver biopsy Family History Father Gastric cancer Mother Coronary disease Social History Are you a primary primary care md to a significant other at home: No Do you presently have visiting nurse or other home services: No Alcohol intake: never Comment: medicated Patient Tobacco Use Status: Never used Tobacco Current occupational status: disabled Current occupation: rt handed Physical Exam Vital Signs: BMI result Body Mass Index 29.3 Extrem Other: Left shoulder examination shows that the surgical incisions are well healed, no erythema, slightly decreased range of motion when compared to her right shoulder, mild discomfort with resisted forward flexion, 5/5 strength with supraspinatus testing, no instability Office Procedures AMB Joint Injection/Aspiration Joint Injection/Aspiration Primary Site: Left Shoulder Prep: site was prepped using aseptic technique Injected: 40 mg of, DepoMedrol, with 3 mL of and 1% plain Lidocaine Procedure: The patient tolerated the procedure well Coding - Large joint Procedure code (CPT) selection complete Assessment & Plan Assessment & Plan (1) Left shoulder pain: Code(s): M25.512 - Pain in left shoulder Category: Medical Plan Ms. Tejada presents with left shoulder pain due to rotator cuff tendinosis. The risks and benefits of a left shoulder cortisone injection were discussed at length with the patient. The patient wished to proceed. She tolerated the injection well. She will continue with her home stretching program. She will contact me prior to her follow-up appointment in 3 months should any questions or concerns arise. Feel free to call me at any time should questions regarding her orthopedic management arise. I spent 20 minutes in reviewing the patient's records and imaging studies, seeing the patient and documenting in the medical record. Orders: Orders AMB Joint Injection/Aspiration Today M25.512 - Pain in left shoulder Coding Level of Care Code Est Pt Level 3 (32760) Add On Problem Visit Only Diagnoses Left shoulder pain M25.512 CPT Codes Coding - Large joint: 81467 - Large joint ([id number])
[2025-04-04 14:42] VITALS: BMI 29.3
--- OUTSIDE RECORDS SUMMARY | 2025-04-04 18:37 | XMS_ITS | Encounter Summary ---
Author Organization [employer] Address [address] [facility] 7t [place] [address] Care Team Providers Care Gun Stock Maker Name Role Phone Patito Wilhelm MD Primary Care Provider Wilber Christie PharmD Unavailable [phone] Reason for Visit * Reason Onset Date Comments PAP Smear 08/1008/11/2023 Encounter Details Date Type Department Care Team ([facility] st Contact Info) Description 08/11/2023 Telephone [facility] MEDICINE [address] [place] [address] Patito Wilhelm MD [address] [place], [place] [phone] PAP Smear 08/10 Social History Tobacco Use [...] stated she wasn't able ot make it, selling underwriter attempted to r/s but no availability. Isotope Technician advised pt call back August 16 r/s for October. documented in this encounter Plan of Treatment Upcoming Encounters Date Type Department Care Team (Late st Contact Info) Description 04/09/2025 11:00 AM EST Office Visit [address] [address] 05/07/2025 1:30 PM EST Office Visit [address] [address] Patito Wilhelm MD [address] [place] [address] 05/10/2025 1:00 PM EST Medication Management [address] [address] Wilber Christie PharmD [address] [place] [address] documented as of this encounter Goals Goal [...] Date End Date Patito Wilhelm MD [address] [place] [address] PCP - General Family Medicine 11/13/18 Wilber Christie PharmD [address] [place] [address] Pharmacist Internal Medicine 01/28/23 documented as of this encounter
--- OUTSIDE RECORDS SUMMARY | 2025-04-04 18:37 | XMS_ITS | Encounter Summary ---
Author Organization [employer] Address [address] [facility] 7t [place] [address] Care Team Providers Care Patrol Sergeant Sheriff'S Office Name Role Phone Patito Wilhelm MD Primary Care Provider [phone] Wilber Christie PharmD Unavailable [phone] Reason for Visit * Reason Onset Date Comments Medication Question 06/09/2023 Encounter Details Date Type Department Care Team ([facility] st Contact Info) Description 06/09/2023 Telephone [facility] MEDICINE [address] [place], [place] [phone] Patito Wilhelm MD [address] [place], [place] [phone] Medication Question Social History Tobacco Use Types [...] If any questions please contact pt at [phone]. documented in this encounter Plan of Treatment Upcoming Encounters Date Type Department Care Team (Late st Contact Info) Description 04/09/2025 11:00 AM EST Office Visit [address] [address] 05/07/2025 1:30 PM EST Office Visit [address] [address] Patito Wilhelm MD [address] [place] [address] 05/10/2025 1:00 PM EST Medication Management [address] [address] Wilber Christie PharmD [address] [place] [address] documented as of this encounter Goals Goal [...] documented as of this encounter Care Teams Patrol Sergeant Sheriff'S Office Relationship Specialty Start Date End Date aPtito Wilhelm MD [address] [place] [address] PCP - General Family Medicine 11/13/18 Wilber Christie, PharmD [address] [place] [address] Pharmacist Internal Medicine 01/28/23 documented as of this encounter
--- OUTSIDE RECORDS SUMMARY | 2025-04-04 18:37 | XMS_ITS | Data Portability ---
Author Organization [facility] [employer] [facility] [place] [employer] [facility] Address [address] [place] [phone] Assessment No assessment recorded. Plan of Treatment [...] Not available Not available Not available 02/14/2024 [id number] RxNorm Not Available [employer] - production 4 03:41:49 8078 latex environme nt,medica tion Not available Not available Not available 02/14/2024 [id number] RxNorm Not Available [facility] - production 4 03:41:49 8079 levofloxa leeal medicatio n Not available Not available Not available 02/14/2024 14231 RxNorm Not Available [employer] - production 4 [...] ICD10 Code Diagnosis IMO Codes Diagnosis Note [id number] Ravi Castillo MD Main - [facility] [address] [place] [address] 12/31/2022 17:19:52 01/03/2023 11:18:56 Essential hypertension [id number] I10 This 57-year-ol d female with hypertensi on treated with metoprolol XL and valsartan called Pending sale to [facility] because her BP has been elevated today. Earlier today she had a knee injection. Her EKG showed no acute findings. Her BP was trending down when the well service pump equipment operator arrived. I recommende d that she monitor [...] [employer] Member ID Guarantor Name 06/21/2023 1 [facility] - DOS ON OR AFTER 2022 - DUAL ELIGIBLE - SENIOR LIVING OPTIONS AND ONE CARE (MEDICARE REPLACEMENT/ADV ANTAGE - HMO) Ameena Tejada [id number] Ameena Tejada Notes Date Note Type Note Provider Name and Address Organization Details Recorded Time 12/31/2022 text/html ROS as noted in the HPI HPI: Patient with trending elevated BP's on last visit at [facility]. Though may be due to pain. [...] to process visit Ravi Castillo MD [address] [facility],[address], [place], [address], [employer] 12/31/2022 17:26:53 OBGyn Episode No OBEpisode recorded.
--- OUTSIDE RECORDS SUMMARY | 2025-04-04 18:37 | XMS_ITS | Encounter Summary ---
Author Organization [employer] Address [address] [facility] 7t [place] [address] Care Team Providers Care Philosophy Faculty Name Role Phone Patito Wilhelm MD Primary Care Provider [phone] Wilber Christie PharmD Unavailable [phone] Reason for Visit * Reason Onset Date Comments Medication Question 12/03/2024 Encounter Details Date Type Department Care Team ([facility] st Contact Info) Description 12/03/2024 Telephone [facility] MEDICINE [address] [place], [place] [phone] Patito Wilhelm MD [address] [place], [place] [phone] Medication Question Social History Tobacco Use Types [...] Description 04/09/2025 11:00 AM EST Office Visit [facility] MEDICINE [address] [place] [address] 05/07/2025 1:30 PM EST Office Visit [facility] MEDICINE [address] [place] [address] Patito Wilhelm MD [address] [place] [address] 05/10/2025 1:00 PM EST Medication Management [facility] MEDICINE [address] [place], [place] [phone] Wilber Christie PharmD [address] [place] [address] documented as of this encounter Goals Goal [...] documented as of this encounter Care Teams Philosophy Faculty Relationship Specialty Start Date End Date Patito Wilhelm MD [address] [place] [address] PCP - General Family Medicine 11/13/18 Wilber Christie PharmD [address] [place] [address] Pharmacist Internal Medicine 01/28/23 documented as of this encounter
--- OUTSIDE RECORDS SUMMARY | 2025-04-04 18:37 | XMS_ITS | Encounter Summary ---
Author Organization [employer] Address [address] [facility] 7t [place] [address] Care Team Providers Care Guest Services Lead Name Role Phone Patito Wilhelm MD Primary Care Provider [phone] Wilber Christie PharmD Unavailable [phone] Reason for Visit * Reason Onset Date Comments Med Refill 08/16/2024 Encounter Details Date Type Department Care Team (Late st Contact Info) Description 08/16/2024 Telephone [facility] MEDICINE [address] [place] [address] Patito Wilhelm MD [address] [place] [address] Med Refill Social History Tobacco Use Types [...] 5-325 MG tablet To be sent to: [address] [address] documented in this encounter Plan of Treatment Upcoming Encounters Date Type Department Care Team (Late st Contact Info) Description 04/09/2025 11:00 AM EST Office Visit [facility] MEDICINE [address] [place] [address] 05/07/2025 1:30 PM EST Office Visit [address] [address] Patito Wilhelm MD [address] [place] [address] 05/10/2025 1:00 PM EST Medication Management [address] [address] Wilber Christie PharmD [address] [place] [address] documented as of this encounter Goals Goal [...] documented as of this encounter Care Teams Guest Services Lead Relationship Specialty Start Date End Date Patito Wilhelm MD [address] [place] [address] PCP - General Family Medicine 11/13/18 Wilber Christie PharmD [address] [place] [address] Pharmacist Internal Medicine 01/28/23 documented as of this encounter
--- OUTSIDE RECORDS SUMMARY | 2025-04-04 18:38 | XMS_ITS | Encounter Summary ---
Author Organization [employer] Address 75 [facility] 7 [place] [address] Care Team Providers Care Software Team Leader Name Role Phone Patito Wilhelm MD Primary Care Provider [phone] Wilber Christie PharmD Unavailable [phone] Reason for Visit * Reason Onset Date Comments Med Refill 07/11/2024 Encounter Details Date Type Department Care Team (Late st Contact Info) Description 07/11/2024 Telephone [facility] MEDICINE [address] [place] [address] Patito Wilhelm MD 230 [place] [address] Med Refill Social History Tobacco Use Types [...] 5-325 MG tablet To be sent to: [address] [address] documented in this encounter Plan of Treatment Upcoming Encounters Date Type Department Care Team (Late st Contact Info) Description 04/09/2025 11:00 AM EST Office Visit [facility]INE [address] [place] [address] 05/07/2025 1:30 PM EST Office Visit [address] [address] Patito Wilhelm MD [address] [place] [address] 05/10/2025 1:00 PM EST Medication Management [address] [address] Wilber Christie PharmD 230 [place] [address] documented as of this encounter Goals Goal [...] documented as of this encounter Care Teams Software Team Leader Relationship Specialty Start Date End Date Patito Wilhelm MD [address] [place] [address] PCP - General Family Medicine 11/13/18 Wilber Christie PharmD 230 [place] [address] Pharmacist Internal Medicine 01/28/23 documented as of this encounter
--- OUTSIDE RECORDS SUMMARY | 2025-04-04 18:38 | XMS_ITS | Clinical Summary ---
Author Organization [facility]. Address [address] [facility] [address] [place] [address] Phone Care Team Providers Care Log Chain Feeder Name Role Phone Patito Wilhelm MD Primary Care Provider [phone] Allergies Active Allergy Reactions Criticality Noted Date [...] Plan: - recommended to check with supervisor painting if she can receive steroid injection Chronic primary bladder pain syndrome 08/14/2012 05/03/2023 Overview (05/03/2023): Last Assessment & Plan: -[place] [facility], last seen on 02/22/22 -Prescribed tamsulosin Chronic low back pain 08/14/2012 05/03/2023 Overview (05/03/2023): Last Assessment & Plan: -Seen by supervisor painting on 12/16/22, yet mainly for left knee [...] (05/03/2023): Last Assessment & Plan: -Followed by [facility] pulmonology, last seen on 11/30/21 -Questionable adherence to medications according to refill history -Reviewed her medications today and discussed about the importance of adherence -Continue Dulera and Spiriva as maintenance -Continue albuterol HFA prn as rescue -Consider referring to MTM -Urged to schedule appt with raw juice weigher; pt verbalized understanding Type 2 diabetes mellitus [...] active Hep C. -Check the satus of [employer] Rachael -Last eye exam: 06/18/22, no retinopathy [...] Last Assessment & Plan: - Following with [facility] Client Specialist, last seen on 12/16/22, started on Euflexxa injection - XR on 12/16/22 showed : mild Osteoarthritis - Currently receiving intraarticular Euflexxa (hyaluronate derivative) Injection - Continue current Tx plan per supervisor painting Viral hepatitis C 09/20/2011 05/03/2023 Encounters Date Type Department Care Team Description 02/06/2025 Orders Only [facility] [address] [facility] [address] [place] [address] Jareth Rowan MD Essential (primary) hypertension 01/26/2025 Refill [facility] [address] [facility] [facility] [address] [place] [address] Jareth Rowan MD from Last [...] Care Team (Late st Contact Info) Description 05/09/2025 3:00 PM EST Office Visit [facility] [address] [place] [address] Jareth Rowan MD [address] [facility] [address] [place] [address] Health Maintenance Due Date Last Done Comments Breast Cancer Screening 1965 Colorectal Cancer Screening: Annual FOBT 2014 Colorectal Cancer Screening: Sigmoidoscopy 2014 Diabetes: Pedal Pulse Checked 02/15/2023 Diabetes: Sensory Foot Exam 02/15/2023 Diabetes: Visual Foot Exam 02/15/2023 Hepatitis B Vaccine (1 of 3 - Risk 3-dose series) 2025 Diabetes: Hemoglobin A1C 05/07/2025 025, 10/29/2024, 06/11/2024, Additional history exists Diabetes: Ophthalmology Exam 10/09/2025 10/09/2024 Colorectal Cancer Screening: Colonoscopy 10/18/2033 10/19/2023 Pneumococcal Vaccine: 50+ Years Completed 10/08/2022, 05/10/2022, 02/13/2002 Pneumococcal Vaccine: Peds ( 0 to 5 Years) and At-Risk Patients (6 to 49 Years) Discontinued 10/08/2022, 05/10/2022, 02/13/2002 Influenza Vaccine Completed 01/23/2025, , 01/10/2023, Additional history [place] [address] ([id number]) [place] [address] ([id number]) Care Teams Log Chain Feeder Relationship Specialty Start Date End Date Patito Wilhelm MD [address] [place] [address] PCP - General Family Medicine 02/07/24
--- OUTSIDE RECORDS SUMMARY | 2025-04-04 18:38 | XMS_ITS | Encounter Summary ---
Author Organization [employer] Address 75 [facility] 7t [place] [address] Care Team Providers Care Civil Engineering Design Draftsperson Name Role Phone Patito Wilhelm MD Primary Care Provider [phone] Wilber Christie PharmD Unavailable [phone] Reason for Visit * Reason Comments Med Refill Encounter Details Date Type Department Care Team (Late st Contact Info) Description 01/26/2025 Refill [facility] MEDICINE 230 [place] [address] Patito Wilhelm MD 230 [place] [address] Social History Tobacco Use Types Packs/Day Years [...] Description 04/09/2025 11:00 AM EST Office Visit [address] [address] 05/07/2025 1:30 PM EST Office Visit [address] [address] Patito Wilhelm MD [address] [place] [address] 05/10/2025 1:00 PM EST Medication Management [address] [address] Wilber Christie, PennyD [address] [place] [address] documented as of this encounter Goals Goal [...] documented as of this encounter Care Teams Civil Engineering Design Draftsperson Relationship Specialty Start Date End Date Patito Wilhelm MD 230 [place] [address] PCP - General Family Medicine 11/13/18 Wilber Christie, Kaia [address] [place] [address] Pharmacist Internal Medicine 01/28/23 documented as of this encounter
--- OUTSIDE RECORDS SUMMARY | 2025-04-04 18:38 | XMS_ITS | Encounter Summary ---
Author Organization [employer] Address 75 [facility] 7t [place] [address] Care Team Providers Care Superintendent Container Terminal Name Role Phone Patito Wilhelm MD Primary Care Provider [phone] Wilber Christie PharmD Unavailable [phone] Reason for Visit * Reason Onset Date Comments Med Refill 02/07/2023 Encounter Details Date Type Department Care Team (Late st Contact Info) Description 02/07/2023 Telephone [facility] MEDICINE 230 [place] [address] Patito Wilhelm MD 230 [place], [place] [phone] Med Refill Social History Tobacco Use Types [...] Description 04/09/2025 11:00 AM EST Office Visit [address] [address] 05/07/2025 1:30 PM EST Office Visit [address] [address] Patito Wilhelm MD [address] [place] [address] 05/10/2025 1:00 PM EST Medication Management [address] [address] Wilber Christie, PharmD [address] [place] [address] documented as of this encounter Goals Goal [...] documented as of this encounter Care Teams Superintendent Container Terminal Relationship Specialty Start Date End Date Patito Wilhelm MD 230 [place] [address] PCP - General Family Medicine 11/13/18 Wilber Christie, PennyD 230 [place] [address] Pharmacist Internal Medicine 01/28/23 documented as of this encounter
--- OUTSIDE RECORDS SUMMARY | 2025-04-04 18:38 | XMS_ITS | Encounter Summary ---
Author Organization [employer] Address 75 [facility] 7t [place] [address] Care Team Providers Care Name Role Phone Patito Wilhelm MD Primary Care Provider [phone] Wilber Christie PharmD Unavailable [phone] Reason for Visit * Reason Onset Date Comments Med Refill 02/05/2025 Encounter Details Date Type Department Care Team (Late st Contact Info) Description 02/05/2025 Telephone [facility] MEDICINE 230 [place] [address] Patito Wilhelm MD 230 [place] [address] Med Refill Social History Tobacco Use Types [...] MG tablet To be sent to: [facility]/pharmacy #[id number] [place], [place] - [address] [place] [address] documented in this encounter Plan of Treatment Upcoming Encounters Date Type Department Care Team ([facility] st Contact Info) Description 04/09/2025 11:00 AM EST Office Visit [facility] MED[facility]INE [address] [place] [address] 05/07/2025 1:30 PM EST Office Visit [facility] [address] [place] [address] Patito Wilhelm MD [address] [place] [address] 05/10/2025 1:00 PM EST Medication Management [facility] [address] [place] [address] Wilber Christie, PharmD [address] [place] [address] documented as of this encounter Goals Goal [...] documented as of this encounter Care Teams Relationship Specialty Start Date End Date Patito Wilhelm MD [address] [place] [address] PCP - General Family Medicine 11/13/18 Wilber Christie PharmD [address] [place] [address] Pharmacist Internal Medicine 01/28/23 documented as of this encounter
--- OUTSIDE RECORDS SUMMARY | 2025-04-04 18:38 | XMS_ITS | Encounter Summary ---
Author Organization [employer] Address 75 [facility] 7t [place] [address] Care Team Providers Care Security Infrastructure Engineer Name Role Phone Patito Wilhelm MD Primary Care Provider [phone] Wilber Christie PharmD Unavailable [phone] Reason for Visit * Reason Comments Med Refill Encounter Details Date Type Department Care Team (Late st Contact Info) Description 03/27/2024 Refill [facility] MEDICINE 230 [place] [address] Patito Wilhelm MD 230 [place] [address] Type 2 diabetes mellitus with diabetic polyneuropathy, with long-term current use of insulin ([facility]) Social History Tobacco Use Types Packs/Day Years [...] Description 04/09/2025 11:00 AM EST Office Visit [address] [address] 05/07/2025 1:30 PM EST Office Visit [address] [address] Patito Wilhelm MD [address] [place] [address] 05/10/2025 1:00 PM EST Medication Management [address] [address] Wilber Christie, Kaia [address] [place] [address] documented as of this encounter Goals Goal [...] documented as of this encounter Care Teams Security Infrastructure Engineer Relationship Specialty Start Date End Date Patito Wilhelm MD 230 [place] [address] PCP - General Family Medicine 11/13/18 Wilber Christie, PharmD 230 [place] [address] Pharmacist Internal Medicine 01/28/23 documented as of this encounter
--- OUTSIDE RECORDS SUMMARY | 2025-04-04 18:38 | XMS_ITS | Encounter Summary ---
Author Organization [employer] Address 75 [facility] 7t [place] [address] Care Team Providers Care Ice Cream Freezer Helper Name Role Phone Patito Wilhelm MD Primary Care Provider [phone] Wilber Christie PharmD Unavailable Reason for Visit * Reason Onset Date Comments triage 06/22/2022 Encounter Details Date Type Department Care Team ([facility] st Contact Info) Description 06/22/2022 Telephone [facility] MEDICINE 230 [place], [place] [phone] Patito Wilhelm MD 230 [place], [place] [phone] triage Social History Tobacco Use Types Packs/Day [...] Description 04/09/2025 11:00 AM EST Office Visit [facility] MEDICINE [address] [place] [phone] 05/07/2025 1:30 PM EST Office Visit [facility] MED[facility]INE [address] [place] [address] Patito Wilhelm MD [address] [place] [address] 05/10/2025 1:00 PM EST Medication Management [facility] MED[facility]INE 230 [place] [address] Wilber Christie, PharmD 230 [place] [address] documented as of this encounter Visit Diagnoses Not on filedocumented in this encounter Care Teams Ice Cream Freezer Helper Relationship Specialty Start Date End Date Patito Wilhelm MD [address] [place] [address] PCP - General Family Medicine 11/13/18 Wilber Christie, PharmD [address] [place] [address] Pharmacist Internal Medicine 01/28/23 documented as of this encounter
--- OUTSIDE RECORDS SUMMARY | 2025-04-04 18:38 | XMS_ITS | Encounter Summary ---
Author Organization [employer] Address 75 [facility] 7t [place] [address] Care Team Providers Care Electrical Electronics Engineer Name Role Phone Patito Wilhelm MD Primary Care Provider [phone] Wilber Christie PharmD Unavailable [phone] Reason for Visit * Reason Onset Date Comments Nurse Triage 05/25/2024 Encounter Details Date Type Department Care Team ([facility] st Contact Info) Description 05/25/2024 Telephone [facility] MEDICINE 230 [place], [place] [phone] Patito Wilhelm MD 230 [place], [place] [phone] Nurse Triage Social History Tobacco Use Types [...] Will send this note to Walk in frontend engineer and Nurses as Pt. May be coming [...] Call Ahead Before Visiting Your Doctor (or AVIONICS ELECTRICAL ENGINEER/PA) * Telephone Encounter - Jess Bunn - 05/25/2024 12:53 PM EST Symptoms: Low Blood Pressure - Caller Reports, Cough, Headache, Nausea But No Vomiting Outcome: Talk to a nurse or provider within 15 minutes Reason: Trouble walking The caller accepted this outcome. [phone] documented in this encounter Plan of Treatment Upcoming Encounters Date Type Department Care Team (Late st Contact Info) Description 04/09/2025 11:00 AM EST Office Visit [address] [address] 05/07/2025 1:30 PM EST Office Visit [address] [address] Patito Wihlelm MD [address] [place] [address] 05/10/2025 1:00 PM EST Medication Management [address] [address] Wilber Christie, PharmD [address] [place] [address] documented as of this encounter Goals Goal [...] documented as of this encounter Care Teams Electrical Electronics Engineer Relationship Specialty Start Date End Date Patito Wilhelm MD 230 [place] [address] PCP - General Family Medicine 11/13/18 Wilber Christie PharmD [address] [place] [address] Pharmacist Internal Medicine 01/28/23 documented as of this encounter
--- OUTSIDE RECORDS SUMMARY | 2025-04-04 18:38 | XMS_ITS | Encounter Summary ---
Author Organization [employer] Address 75 [facility] 7t [place] [address] Care Team Providers Care Radio Engineer Name Role Phone Patito Wilhelm MD Primary Care Provider [phone] Wilber Christie PharmD Unavailable [phone] Reason for Visit * Reason Onset Date Comments Med Refill 01/04/2025 Encounter Details Date Type Department Care Team (Late st Contact Info) Description 01/04/2025 Telephone [facility] MEDICINE 230 [place] [address] Patito Wilhelm MD 230 [place] [address] Med Refill Social History Tobacco Use Types [...] 5-325 MG tablet To be sent to: [facility]/pharmacy #[id number] [place], [place] - [address] [place] [address] documented in this encounter Plan of Treatment Upcoming Encounters Date Type Department Care Team ([facility] st Contact Info) Description 04/09/2025 11:00 AM EST Office Visit [facility] MEDICINE [address] [place] [address] 05/07/2025 1:30 PM EST Office Visit [address] [address] Patito Wilhelm MD [address] [place] [address] 05/10/2025 1:00 PM EST Medication Management [facility] MEDICINE [address] [place] [address] Wilber Christie, PharmD [address] [place] [address] documented as of this encounter Goals Goal [...] as of this encounter Care Teams Radio Engineer Relationship Specialty Start Date End Date Patito Wilhelm MD [address] [place] [address] PCP - General Family Medicine 11/13/18 Wilber Christie PharmD [address] [place] [address] Pharmacist Internal Medicine 01/28/23 documented as of this encounter
--- OUTSIDE RECORDS SUMMARY | 2025-04-04 18:38 | XMS_ITS | Encounter Summary ---
Author Organization [employer] Address [address] [place] [address] [place] [address] Care Team Providers Care Trim Carpenter Name Role Phone Patito Wilhelm MD Primary Care Provider [phone] Wilber Christie PharmD Unavailable [phone] Reason for Visit * Reason Comments Med Refill Encounter Details Date Type Department Care Team (Late Contact Info) Description 01/13/2023 Refill [facility] MEDICINE [address] [place] [address] Ashley Goodman MD 230 [place], [place] [phone] Chronic right shoulder pain Social History Tobacco [...] 11:00 AM EST Office Visit [facility] MEDICINE [address] [place] [address] 05/07/2025 1:30 PM EST Office Visit [facility] MEDICINE [address] [place] [address] Patito Wilhelm MD [address] [place] [address] 05/10/2025 1:00 PM EST Medication Management [facility] MEDICINE [address] [place] [address] Wilber Christie, Kaia [address] [place] [address] documented as of this encounter Visit Diagnoses Diagnosis Chronic right shoulder pain Pain in joint, shoulder region documented in this encounter Additional Health Concerns Assessment Noted Time PHQ-9 Depression Total Score: 6 07/27/19 1:10 PM EDT documented as of this encounter Care Teams Trim Carpenter Relationship Specialty Start Date End Date Patito Wilhelm MD [address] [place] [address] PCP - General Family Medicine 11/13/18 Wilber Christie, PharmD [address] [place] [address] Pharmacist Internal Medicine 01/28/23 documented as of this encounter
--- OUTSIDE RECORDS SUMMARY | 2025-04-04 18:38 | XMS_ITS | Encounter Summary ---
Author Organization [employer] Address 75 [facility] 7t [place] [address] Care Team Providers Care Architectural Design Lecturer Name Role Phone Patito Wilhelm MD Primary Care Provider [phone] Wilber Christie PharmD Unavailable Reason for Visit * Reason Onset Date Comments Med Refill 04/01/2025 Encounter Details Date Type Department Care Team (Late st Contact Info) Description 04/01/[address] [facility] MEDICINE 230 [place] [address] Patito Wilhelm MD 230 [place] [address] Med Refill Social History Tobacco Use Types [...] MG tablet To be sent to: - [facility]/pharmacy #[id number] documented in this encounter Plan of Treatment Upcoming Encounters Date Type Department Care Team (Late st Contact Info) Description 04/09/2025 11:00 AM EST Office Visit [facility] MEDICINE [address] [place] [address] 05/07/2025 1:30 PM EST Office Visit [address] [address] Patito Wilhelm MD [address] [place] [address] 05/10/2025 1:00 PM EST Medication Management [address] [address] Wilber Christie, PennyD 230 [place] [address] documented as of this encounter Goals Goal [...] Plan Weekly blood pressure task No [facility] Weekly blood pressure task Care Plan Weekly blood pressure task No Keysha Goldsmith [facility] Patient has chronic kidney disease Care Plan Patient has chronic kidney disease No [facility] Patient has chronic kidney disease Care Plan Patient has chronic kidney disease No Keysha [place]oldsmith [facility] Weekly blood pressure task Care Plan Weekly [...] Care Plan Weekly blood pressure task No [facility] Weekly blood pressure task Care Plan Weekly blood pressure task No [facility] Patient has chronic kidney disease Care Plan Patient has chronic kidney disease No [facility] Patient has chronic kidney disease Care Plan Patient has chronic kidney disease No [facility] Weekly blood pressure task Care Plan Weekly blood pressure task No Luana Hennessy Weekly blood pressure task Care Plan Weekly blood pressure task No Luana Hennessy Patient has chronic kidney disease Care Plan Patient has chronic kidney disease No Luana Hennessy Patient has chronic kidney disease Care Plan Patient has chronic kidney disease No Aem Hennessya Weekly blood pressure task Care Plan [...] documented as of this encounter Care Teams Architectural Design Lecturer Relationship Specialty Start Date End Date Patito Wilhelm MD 230 [place] [address] PCP - General Family Medicine 11/13/18 Wilber Christie, PennyD 230 [place] [address] Pharmacist Internal Medicine 01/28/23 documented as of this encounter
--- OUTSIDE RECORDS SUMMARY | 2025-04-04 18:38 | XMS_ITS | Clinical Summary ---
Author Organization [employer] Address [address] [place] [address] [address] [place] [address] Care Team Providers Care Tin Stacker Name Role Phone Patito Givens MD Primary Care Provider [phone] Wilber Christie PharmD Unavailable [phone] Allergies Active Allergy Reactions Criticality Noted Date [...] polyneuropathy, with long-term current use of insulin ([facility]) Apply 1 Pad topically 2 times [...] edema, with long-term current use of insulin ([facility]) Check blood glucose 3 times daily [...] edema, with long-term current use of insulin ([facility]) INJECT 25 UNITS subcutaneously TWICE DAILY [...] arthroscopic surgery on 06/29/2024 - Following with [facility] orthopedic Burning sensation 11/27/2024 Assessment & Plan (11/27/2024 5:33 PM EDT): Neuropathy? C/w pregabaline as prescribed I will prescribe local lidocaine cream F/u with PCP Long-term current use of opiate analgesic 2024 Overview (10/09/2024): Medication: Percocet 5/325mg Q12H PRN Indication: lumbar radiculopathy, fibromyalgia Last LAUNCHING PAD MECHANIC Agreement: 07/06/24 LAUNCHING PAD MECHANIC visits Q3-4 months Assessment & Plan (03/16/2025 [...] Plan (02/08/2025 11:28 PM EDT): -Seen by maintenance painter apprentice on 03/30/23 -Received lumbar facet [...] Plan (10/29/2024 12:57 PM EDT): -Seen by maintenance painter apprentice on 03/30/23 -Received lumbar facet [...] Plan (12/12/2023 4:47 AM EDT): -Seen by maintenance painter apprentice on 03/30/23 -Received lumbar facet block bilateral on 04/28/22 -Received DEE L5-S1 on 04/19/23 -Continue judicious use of oxycodone-APAP and pregabalin -Continue topical diclofenac Assessment & Plan (12/12/2023 4:55 AM EDT): >>ASSESSMENT AND PLAN FOR LUMBOSACRAL RADICULOPATHY WRITTEN ON 06/04/2023 5:53 AM BY PATITO GIVENS MD -Seen by maintenance painter apprentice on 03/30/23 -Received lumbar facet [...] (02/18/2025 7:12 AM EST): - Followed by [facility], last [...] PM EDT): - recommended to check with maintenance painter apprentice if she can receive steroid injection Assessment & Plan (08/09/2022 5:26 AM EDT): - recommended to check with maintenance painter apprentice if she can receive steroid injection Chronic interstitial cystitis 08/14/2012 Assessment & Plan (08/30/2023 2:38 PM EDT): -Followed by urologist [facility], last seen on 02/22/22 -Prescribed tamsulosin, no longer taking Assessment & Plan (04/02/2023 6:05 AM EST): -Followed by urologist [facility], last seen on 02/22/22 -Prescribed tamsulosin, no longer taking Assessment & Plan (05/14/2022 5:02 PM EST): -Followed by urologist [facility], last seen on 02/22/22 -Prescribed tamsulosin Chronic low back pain 08/14/2012 Assessment & Plan (02/08/2025 11:23 PM EDT): -Seen by maintenance painter apprentice on 02/11/23 -Received lumbar facet block bilateral on 04/28/22 -Received DEE L5-S1 on 04/19/23 -Continue judicious use of oxycodone-APAP and pregabalin -Continue topical diclofenac -Continue following with maintenance painter apprentice - Continue attending chronic pain group -Encouraged to continue PT Assessment & Plan (11/10/2024 6:27 AM EDT): -Seen by maintenance painter apprentice on 02/11/23 -Received lumbar facet block bilateral on 04/28/22 -Received DEE L5-S1 on 04/19/23 -Continue judicious use of oxycodone-APAP and pregabalin -Continue topical diclofenac -Continue following with maintenance painter apprentice - Continue attending chronic pain group -Encouraged to continue PT Assessment & Plan (12/12/2023 4:52 AM EDT): -Seen by maintenance painter apprentice on 02/11/23 -Received lumbar facet block bilateral on 04/28/22 -Received DEE L5-S1 on 04/19/23 -Continue judicious use of oxycodone-APAP and pregabalin -Continue topical diclofenac -Continue following with maintenance painter apprentice -Encouraged to continue PT Assessment & Plan (08/30/2023 2:41 PM EDT): -Seen by maintenance painter apprentice on 02/11/23 -Received lumbar facet block bilateral on 04/28/22 -Received DEE L5-S1 on 04/19/23 -Continue judicious use of oxycodone-APAP and pregabalin -Continue topical diclofenac -Continue following with maintenance painter apprentice -Encouraged to continue PT Assessment & Plan (06/04/2023 6:04 AM EST): -Seen by maintenance painter apprentice on 02/11/23 -Received lumbar facet block bilateral on 04/28/22 -Received DEE L5-S1 on 04/19/23 -Continue judicious use of oxycodone-APAP and pregabalin -Continue topical diclofenac -Continue following with maintenance painter apprentice -Encouraged to continue PT Assessment & Plan (04/02/2023 6:10 AM EST): -Seen by maintenance painter apprentice on 02/11/23 -Received lumbar facet block bilateral on 04/28/22 -Scheduled for DEE L5-S1 soon -Continue judicious use of oxycodone-APAP and pregabalin -Continue topical diclofenac Assessment & Plan (01/10/2023 5:38 PM EDT): -Seen by maintenance painter apprentice on 12/16/22, yet mainly for left knee pain -Received lumbar facet block bilateral on 04/28/22 -Continue judicious use of oxycodone-APAP and pregabalin -Continue topical diclofenac Assessment & Plan (12/26/2022 5:36 AM EDT): -Seen by maintenance painter apprentice on 02/04/22. -Received lumbar facet block bilateral on 04/28/22 Assessment & Plan (05/14/2022 5:00 PM EST): -Seen by maintenance painter apprentice on 02/04/22. -Received lumbar facet block bilateral on 04/28/22 Hypertension 11/25/2011 Assessment & Plan (02/18/2025 7:16 AM EST): -Goal BP < 130/80 per ACC/AHA guideline (Treatment threshold >= 130/80 ) -History of questionable medication adherence -In a setting of chronic pain -Co-managed with pharmacist, railway station manager, and adobe block maker -s/p 24-hour BP monitoring by nephrology; recommended sleep study and increased metoprolol -Continue checking home BP -Continue working on lifestyle modification -Continue metoprolol succinate 75 mg daily -Continue Valsartan to 320mg daily -Treatment Hx: lisinpril was discontinued due to cough;Losartan was self- discontinued due to dry mouth; amlodipine was self-discontinued due to dry mouth; metoprolol was increased by adobe block maker from 50 mg to 75 mg. Recently BP has been stable, so [employer]pper tapered Metoprolol down to 25 mg, but pt started to have palpitations and self increased back to 50 mg. Assessment & Plan (10/29/2024 12:56 PM EDT): -Goal BP < 140/90 per JNC-8 and < 130/80 per ACC/AHA guideline (Treatment threshold >= 130/80 ) -History of questionable medication adherence -In a setting of chronic pain -Co-managed with pharmacist, railway station manager, and adobe block maker -s/p 24-hour BP monitoring by nephrology; recommended sleep study and increased metoprolol -Continue checking home BP -Continue working on lifestyle modification -Continue metoprolol succinate 75 mg daily -Continue Valsartan to 320mg daily -Treatment Hx: lisinpril was discontinued due to cough;Losartan was self- discontinued due to dry mouth; amlodipine was self-discontinued due to dry mouth; metoprolol was increased by adobe block maker from 50 mg to 75 mg. Recently BP has been stable, so Spring Clipper tapered Metoprolol down to 25 mg, but pt started to have palpitations and self increased back to 50 mg. Assessment & Plan (03/27/2024 3:57 PM EST): -Goal BP < 140/90 per JNC-8 and < 130/80 per ACC/AHA guideline (Treatment threshold >= 130/80 ) -History of questionable medication adherence -In a setting of chronic pain -Co-managed with pharmacist, railway station manager, and adobe block maker -s/p 24-hour BP monitoring by nephrology; recommended sleep study and increased metoprolol -Continue checking home BP -Continue working on lifestyle modification -Continue metoprolol succinate 75 mg daily -Continue Valsartan to 320mg daily -Treatment Hx: lisinpril was discontinued due to cough;Losartan was self- discontinued due to dry mouth; amlodipine was self-discontinued due to dry mouth; metoprolol was increased by adobe block maker from 50 mg to 75 mg. Recently BP has been stable, so Spring Clipper tapered Metoprolol down to 25 mg, but pt started to have palpitations and self increased back to 50 mg. Assessment & Plan (12/12/2023 4:46 AM EDT): -Goal BP < 140/90 per JNC-8 and < 130/80 per ACC/AHA guideline (Treatment threshold >= 130/80 ) -History of questionable medication adherence -In a setting of chronic pain -Co-managed with pharmacist, railway station manager, and adobe block maker -s/p 24-hour BP monitoring by nephrology; recommended sleep study and increased metoprolol -Continue checking home BP -Continue working on lifestyle modification -Continue metoprolol succinate 75 mg daily -Continue Valsartan to 320mg daily -Treatment Hx: lisinpril was discontinued due to cough;Losartan was self- discontinued due to dry mouth; amlodipine was self-discontinued due to dry mouth; metoprolol was increased by adobe block maker from 50 mg to 75 mg Assessment & Plan (08/30/2023 2:37 PM EDT): -Goal BP < 140/90 per JNC-8 and < 130/80 per ACC/AHA guideline (Treatment threshold >= 130/80 ) -Questionable medication adherence -Co-managed with pharmacist and railway station manager -Continue checking home BP -Continue working on [...] -Questionable medication adherence -Co-managed with pharmacist and railway station manager -Continue checking home BP -Continue working on [...] -Questionable medication adherence -Co-managed with pharmacist and railway station manager -Continue checking home BP -Continue working on [...] Plan (02/08/2025 11:28 PM EDT): -Followed by [facility] pulmonology, last seen on 10/10/2024, -Currently [...] Plan (11/10/2024 6:30 AM EDT): -Followed by [facility] pulmonology, last seen on 10/10/2024, -Currently [...] Plan (03/27/2024 3:55 PM EST): -Followed by [facility] pulmonology, last seen on 03/28/23, switched mometasone / formoterol (Dulera) to budesonide / formoterol (Symbicort) -Questionable adherence to medications according to refill history, she is unaware of budesonide / formoterol (Symbicort) prescription -Reviewed her medications today and discussed about the importance of adherence; Advised to nut picker her budesonide / formoterol (Symbicort) and get her lab done prior to next appointment with budget technician -Currently prescribed budesonide / formoterol (Symbicort) and tiotropium (Spiriva) as maintenance -Continue albuterol HFA prn as rescue -Treatment Hx: Previously on fluticasone (Flovent), which was changed to mometasone / formoterol (Dulera). Mometasone / formoterol (Dulera) was changed to budesonide / formoterol (Symbicort) most recently -Reviewed the importance of medication adherence and recommended to contact pharmacist and budget technician for clarification of currently prescribed inhalers. Assessment & Plan (12/06/2023 1:45 PM EDT): -Followed by [facility] pulmonology, last seen on 03/28/23, switched mometasone / formoterol (Dulera) to budesonide / formoterol (Symbicort) -Questionable adherence to medications according to refill history, she is unaware of budesonide / formoterol (Symbicort) prescription -Reviewed her medications today and discussed about the importance of adherence; Advised to nut picker her budesonide / formoterol (Symbicort) and get her lab done prior to next appointment with budget technician -Currently prescribed budesonide / formoterol (Symbicort) and tiotropium (Spiriva) as maintenance -Continue albuterol HFA prn as rescue -Treatment Hx: Previously on fluticasone (Flovent), which was changed to mometasone / formoterol (Dulera). Mometasone / formoterol (Dulera) was changed to budesonide / formoterol (Symbicort) most recently -Reviewed the importance of medication adherence and recommended to contact pharmacist and budget technician for clarification of currently prescribed inhalers. Assessment & Plan (08/30/2023 2:37 PM EDT): -Followed by [facility] pulmonology, last seen on 03/28/23, switched mometasone / formoterol (Dulera) to budesonide / formoterol (Symbicort) -Questionable adherence to medications according to refill history, she is unaware of budesonide / formoterol (Symbicort) prescription -Reviewed her medications today and discussed about the importance of adherence; Advised to nut picker her budesonide / formoterol (Symbicort) and get her lab done prior to next appointment with budget technician -Currently prescribed budesonide / formoterol (Symbicort) and tiotropium (Spiriva) as maintenance -Continue albuterol HFA prn as rescue -Treatment Hx: Previously on fluticasone (Flovent), which was changed to mometasone / formoterol (Dulera). Mometasone / formoterol (Dulera) was changed to budesonide / formoterol (Symbicort) most recently -Reviewed the importance of medication adherence and recommended to contact pharmacist and budget technician for clarification of currently prescribed inhalers. Assessment & Plan (06/04/2023 5:58 AM EST): -Followed by [facility] pulmonology, last seen on 03/28/23, switched mometasone / formoterol (Dulera) to budesonide / formoterol (Symbicort) -Questionable adherence to medications according to refill history, she is unaware of budesonide / formoterol (Symbicort) prescription -Reviewed her medications today and discussed about the importance of adherence; Advised to nut picker her budesonide / formoterol (Symbicort) and get her lab done prior to next appointment with budget technician -Currently prescribed budesonide / formoterol (Symbicort) and tiotropium (Spiriva) as maintenance -Continue albuterol HFA prn as rescue -Treatment Hx: Previously on fluticasone (Flovent), which was changed to mometasone / formoterol (Dulera). Mometasone / formoterol (Dulera) was changed to budesonide / formoterol (Symbicort) most recently -Reviewed the importance of medication adherence and recommended to contact pharmacist and budget technician for clarification of currently prescribed inhalers. Assessment & Plan (04/02/2023 5:57 AM EST): -Followed by [facility] pulmonology, last seen on 11/30/21 -Questionable adherence to medications according to refill history -Reviewed her medications today and discussed about the importance of adherence -Continue mometasone / formoterol (Dulera) and tiotropium (Spiriva) as maintenance -Continue albuterol HFA prn as rescue -Urged to schedule appt with budget technician; pt verbalized understanding Assessment & Plan (01/10/2023 2:06 PM EDT): -Followed by [facility] pulmonology, last seen on 11/30/21 -Questionable adherence to medications according to refill history -Reviewed her medications today and discussed about the importance of adherence -Continue Dulera and Spiriva as maintenance -Continue albuterol HFA prn as rescue -Consider referring to MTM -Urged to schedule appt with budget technician; pt verbalized understanding Assessment & Plan (12/26/2022 5:30 AM EDT): -Followed by [facility] pulmonology, last seen on 11/30/21 -Questionable adherence to medications according to refill history -Reviewed her medications today and discussed about the importance of adherence -Continue Dulera and Spiriva as maintenance -Continue albuterol HFA prn as rescue -Consider referring to MTM -Urged to schedule appt with budget technician; pt verbalized understanding Assessment & Plan (08/09/2022 5:23 AM EDT): -Followed by [facility] pulmonology, last seen on 11/30/21 -Reviewed her medications today and discussed about the importance of adherence -Continue Dulera and Spiriva as maintenance - Continue albuterol HFA prn as rescue -Consider referring to MTM Assessment & Plan (05/14/2022 4:42 PM EST): -Followed by [facility] pulmonology, last seen on 11/30/21 -Mild wheezing today -Pt is being prescribed Dulera and Spiriva as maintanance, but patient is uncertain and medication refill history suggests questionable adherence. -Consider referring to [facility] Type 2 diabetes mellitus 09/20/2011 Assessment [...] -Last foot exam: 10/20/21 -Last microalbumin test: 7/5/22 UACR 12 Last lipid profile: 10/20/21 TC [...] active Hep C. -Check the satus of [employer] Rachael -Last eye exam: 05/14/21 at [facility] eye care, no retinopathy -Last foot exam: 10/20/21 -Last microalbumin test: 10/20/21 UACR 12 Last lipid profile: 10/20/21 TC 197; 142; HDL 64; LDL 108. Last dental exam: Immunizations: up to date Knee pain 09/20/2011 Assessment & Plan (06/02/2023 9:41 AM EST): - Following with [facility] Quenching Machine Operator, last seen in Jan 2023 - XR on 12/16/22 showed : mild Osteoarthritis - Received intraarticular Euflexxa (hyaluronate derivative) Injection x 3 doses in 2022 - Continue current Tx plan per maintenance painter apprentice Assessment & Plan (04/02/2023 6:14 AM EST): - Following with [facility] Quenching Machine Operator, last seen in Jan 2023 - XR on 12/16/22 showed : mild Osteoarthritis - Received intraarticular Euflexxa (hyaluronate derivative) Injection x 3 doses in 2022 - Continue current Tx plan per maintenance painter apprentice Assessment & Plan (01/10/2023 5:41 PM EDT): - Following with [facility] Quenching Machine Operator, last seen on 12/16/22, started on Euflexxa injection - XR on 12/16/22 showed : mild Osteoarthritis - Currently receiving intraarticular Euflexxa (hyaluronate derivative) Injection - Continue current Tx plan per maintenance painter apprentice Resolved Problems Problem Noted Date [...] Type Department Care Team Description 04/01/2025 Refill [facility] [address] [place], [place] [phone] Tosha Phillips RN Chronic back pain, unspecified back location, unspecified back pain laterality 04/01/[address] [address] Patito Givens MD Med Refill 03/26/[address] [address] Patito Givens MD Durable Medical Equipment (DME: [facility] [employer] DME Request 10 in one ) 03/22/2025 Results Follow-Up [facility] [address] [place] [phone] [place], DAMION MR Brain w/o Contrast 03/19/[address] [phone] Patito Givens MD Medication Question 03/12/2025 11:00 AM EST Office Visit [address] [address] Kori Carrillo FNP Lumbosacral radiculopathy (Primary Dx); Long-term current use of opiate analgesic 03/12/2025 Travel 03/05/2025 Orders Only GENERIC EXTERNAL DATA DEPARTMENT Provider, Generic External Data 03/04/2025 Orders Only [facility] [address] [place] [phone] Patito Givens MD 03/04/2025 Refill [facility] [address] [place] [address] Tosha Phillips RN Chronic back pain, unspecified back location, unspecified back pain laterality 03/04/[address] [address] Patito Givens MD Med Refill 03/04/[address] [address] Patito Givens MD Call Back Request 02/22/2025 3:00 PM EST Office Visit [facility] [address] [place] [phone] [place] Christianne, [facility] Dizziness; BPPV (benign paroxysmal positional vertigo), unspecified laterality 02/22/2025 Telephone [facility] [address] [place] [phone] Patito Givens MD Nurse Triage 02/22/2025 Travel 02/05/2025 Refill [facility] [address] [place] [address] Tosha Phillips RN Chronic back pain, unspecified back location, unspecified back pain laterality 02/05/[address] [address] Patito Givens MD Med Refill 02/04/2025 3:00 PM EDT Office Visit [address] [address] Patito Givens MD Primary hypertension (Primary Dx); [...] of other site 02/04/2025 Travel 02/01/2025 Telephone [facility] [address] [place] [address] Patito Givens MD chart prep 01/26/2025 Refill [facility] [address] [place] [address] [phone] Patito Givens MD 01/24/2025 Orders Only [facility] [address] [place] [phone] Patito Givens MD Type 2 diabetes mellitus with both eyes affected by mild nonproliferative retinopathy without macular edema, with long-term current use of insulin ([facility]) (Primary Dx); Primary hypertension; Moderate persistent asthma without complication 01/23/2025 Travel 01/04/2025 Refill [facility] [address] [place] [address] Patito Givens MD Type 2 diabetes mellitus with both eyes affected by mild nonproliferative retinopathy without macular edema, with long-term current use of insulin (CMS/HCC) 01/04/2025 Refill [facility] [address] [place], [place] [phone] Tosha Phillips RN Chronic back pain, unspecified back location, unspecified back pain laterality 01/04/2025 Telephone [facility] [address] [place], [place] [phone] Patito Givens MD Med Refill from Last [...] Description 04/09/2025 11:00 AM EST Office Visit [facility] [address] [place] [phone] 05/07/2025 1:30 PM EST Office Visit [address] [address] Patito Givens MD [address] [place] [phone] 05/10/2025 1:00 PM EST Medication Management [facility] [address] [place] [address] Wilber Christie, PharmD [address] [place] [address] Health Maintenance Due Date Last Done Comments [...] chronic kidney disease No Patito Givens MD Patient has chronic [...] Plan [facility] Weekly blood pressure task Care Plan Weekly blood pressure task No Charmaine Carreon [facility] Patient has chronic kidney disease Care Plan Patient has chronic kidney disease No Charmaine Carreon [facility] Patient has chronic kidney disease Care Plan Patient has chronic kidney disease No Charmaine Carreon [facility] Weekly blood pressure task Care Plan Weekly [...] Care Plan Weekly blood pressure task No Christianne Strickland FNP Weekly blood pressure task Care Plan Weekly blood pressure task No Christianne Strickland FNP Patient has chronic kidney disease Care Plan Patient has chronic kidney disease No [place], Christianne, PREPLEATER Patient has chronic kidney disease Care Plan Patient has chronic kidney disease No [place], PREPLEATER Weekly blood pressure task Care Plan Weekly blood pressure task No Luana Hennessy Weekly blood pressure task Care Plan Weekly blood pressure task No Luana Hennessy Patient has chronic kidney disease Care Plan Patient has chronic kidney disease No Ame Hennessya Patient has chronic kidney disease Care Plan [...] blood pressure task No Colon Kwame Dominga Patient has chronic kidney disease Care [...] PM EST Narrative 03/20/2025 7:33 PM EST [place] [address] Magnetic Resonance Report Signed Patient: Ameena Tejada MR#: [id number] 33 : 1965 Acct:[id number] Age/Sex: 60 / F ADM Date: 03/20/25 Loc: HO.MRI Attending Dr: Christianne BRUNO Ordering Physician: Christianne Strickland Date of Service: 03/20/25 Procedure(s): MR head/brain wo con Accession Number(s): [id number] cc: Patito Givens MD; Christianne Strickland Reason for Exam: 59 y.o F with [...] in OV> 03/20/251931 DD/ 31 TD/TT: 03/20/251931 Regional Economic Liaison: Procedure Note Donotuseinterpreter, Image - 03/20/2025 [place] [address] Magnetic Resonance Report Signed Patient: King Tejada#: [id number] 33 : 1965Acct:[id number] Age/Sex: 60 / FADM Date: 03/20/25 Loc: HO.MRI Attending Dr: Christianne BRUNO Ordering Physician: Christianne Strickland Date of Service: 03/20/25 Procedure(s): MR head/brain wo con Accession Number(s): [id number] cc: Patito Givens MD; Christianne Strickland [facility] Reason for Exam: 59 y.o F with [...] in OV> 03/20/251931 DD/ 31 TD/TT: 03/20/251931 Regional Economic Liaison: [facility] IMG MRI PROCEDURES Edited Res ult - [...] - 03/12/2025 11:49 AM EST .UTOX cup Lot#[id number] Exp. 03/18/26 Internal Pass Control Patito Givens MD POINT OF CARE TEST ENTER/EDIT OR DERABLES Final Result * (ABNORMAL) Glucose, Whole Blood (03/05/2025 12:00 PM EST) Glucose, Whole Blood 132(H) 60 - 115 mg/dL [facility] Comment:METER #: [id number] 03/05/2025 12:0 0 PM EST 03/05/2025 12:04 PM EST Generic External Data Provider LAB BLOOD ORDERAB LES Final Result [facility] [address] [place] [phone] * POCT Glucose (02/22/2025 3:13 PM EST) Only the most recent of2 resultswithin the time period is included. Glucose Blood, POC 197 60 - 200 mg/dL Blood Capillary blood specimen / Unknown 02/22/2025 3:13 PM EST [facility] [employer] PREPLEATER POINT OF CARE TEST ENTER/EDIT ORDERABLES Final Result * CT Abdomen Pelvis w/o Contrast (02/16/2025 10:03 AM EDT) Anatomical Region Laterality Modality Body, Pelvis, Abdomen Computed T omography 02/16/2025 10:0 3 AM EDT Narrative 02/18/2025 10:12 AM EST [place] [address] CT Scan Report Signed Patient: Ameena Tejada MR#: [id number] 33 : 1965 Acct:[id number] Age/Sex: 59 / F ADM Date: 02/16/25 Loc: HO.CT Attending Dr: Marcell Saez MD Ordering Physician: Marcell Saez MD Date of Service: 02/16/25 Procedure(s): CT abdomen pelvis wo IV con Accession Number(s): [id number] cc: Marcell Saez MD; Patito Givens MD Report Number: [id number]: Total DLP = 458.00 mGy-cm Reason for [...] 02/18/25 1009 DD/ 1003 TD/TT: 02/16/25 1018 Regional Economic Liaison: ALEXANDRA Procedure Note Donotuseinterpreter, Image - 02/18/[address] [address] [address] Scan Report Signed Patient: King Tejada#: [id number] 33 : 1965Acct:[id number] Age/Sex: 59 / FADM Date: 02/16/25 Loc: HO.CT Attending Dr: Marcell Saez MD Ordering Physician: Marcell Saez MD Date of Service: 02/16/25 Procedure(s): CT abdomen pelvis wo IV con Accession Number(s): [id number] cc: Marcell Saez MD; Patito Givens MD Report Number: [id number]: Total DLP = 458.00 mGy-cm Reason for [...] by: Reyes Rueda MD 02/18/2025 10:09 AM [facility] Dictated By: Reyes Rueda MD Signed By: <Electronically signed by Reyes Rueda MD in OV> 02/18/25 1009 DD/ 1003 TD/TT: 02/16/25 1018 Regional Economic Liaison: ALEXANDRA [facility] External Provider IMG CT PROCEDURES Edited Result - Final * (ABNORMAL) POCT Hgb A1c (02/04/2025 3:10 PM EDT) Hemoglobin A1C 6.1(A) 4.0 - 5.7 % QC Media Lot # [id number] Lot# Expiration Date Blood 02/04/2025 3:10 PM EDT Patito Givens MD POINT OF CARE TEST ENTER/EDIT OR DERABLES Final Result * (ABNORMAL) Lipid Panel, Standard (07/06/2024 11:02 AM EDT) Triglycerides 143 <150 mg/dL [facility] Comment:Desirable Triglyceri de: less than 150 mg/dLBorderline High Triglyceride 150-199 mg/dLHigh Triglyceride: 200-499 mg/dLVery High Triglyceride: greater than or equal to 5OO mg/dL Cholesterol 171 <200 mg/dL [facility] Comment:Desirable Cholestero l: less than 200 mg/dLBorderline High Cholesterol: 200-239 mg/dLHigh Cholesterol: greater than 239 mg/dL LDL Cholesterol Calculated 100(H) <100 mg/dL [facility] Comment:Desirable LDL: less than 100 mg/dLNear Optimal/Above Optimal LDL: 110- 129 mg/dLBorderline High LDL: 130-159 mg/dLHigh LDL: 160-189 mg/dLVery High LDL: greater than or equal to 190 mg/dL HDL Cholesterol 43 >40 mg/dL [facility] Comment:Desirable HDL: great er than 40 mg/dL Note: This HDL assay may give artificially low results in patients with liver disease. 07/06/2024 11:0 2 AM EDT 07/06/2024 1:13 PM EDT us Patito Givens MD LAB BLOOD ORDERABLES Final Resul t [facility] [address] [place] [address] [phone] * BI Mammogram Screening Tomosynthesis Bilateral (03/27/2024 1:50 PM EST) Anatomical Region Laterality Modality Breast Bilateral Mammography 03/27/2024 1:50 PM EST Narrative 04/02/2024 3:31 PM EST [address] [place] [address] Mammography Report Signed Patient: Ameena Tejada MR#: [id number] 33 : 1965 Acct:[id number] Age/Sex: 59 / F ADM Date: 03/27/24 Loc: MAMMReed Attending Dr: Patito Givens MD Ordering Physician: Patito Givens MD Results: 2Benign F indings Date of Service: 03/27/24 Follow Up: 1 Year From [facility] Mammogram Procedure(s): MM tomosynthesis screening BI Accession Number(s): [id number] cc: Patito Givens MD EXAMINATION: MM SCREENING [...] 04/02/24 1528 DD/ 1350 TD/TT: 03/27/24 1405 Regional Economic Liaison: Procedure Note Donotuseinterpreter, Image - 04/02/2024 [facility] [address] [place] [address] Mammography Report Signed Patient: King Tejada#: [id number] 33 : 1965Acct:[id number] Age/Sex: 59 / FADM Date: 03/27/24 Loc: JIM Attending Dr: Patito Givens MD Ordering Physician: Patito Givens MDResults: 2Benign F indings Date of Service: 03/27/24Follow Up: 1 Year From Orig in[facility] Mammogram Procedure(s): MM tomosynthesis screening BI Accession Number(s): [id number] cc: Patito Givens MD EXAMINATION: MM SCREENING [...] 04/02/24 1528 DD/ 1350 TD/TT: 03/27/24 1405 Regional Economic Liaison: us Patito Givens MD IMG BI PROCEDURES Edited Result - Final * Hm Colonoscopy (10/19/2023) Colonoscopy Normal Normal Narrative Christine Ramirez - 10/19/2023 Recommended 10 year follow up . see external hospital admission note on 10/19/2023 us Historical Provider HEALTH MAINTENANCE Final Result * Albumin, Random Urine W/Creatinine (12/09/2022 1:02 PM EDT) Creatinine, Urine 170.12 mg/dL [facility] Microalbumin Urine 15.0 mg/L [facility] Microalbum Creatinine Ratio Ur 8.8 <30 ug/mg cr [facility] Comment:Albumin/Creatinine R atio Reference Ranges: Normal: < 30 ug/mg creatinine Microalbuminuria: 30 - 300 ug/mg creatinineClinical Albuminuria: > 300 ug/mg creatinine Urine 12/09/2022 1:02 PM EDT 12/09/2022 3:56 PM EDT us Patito Givens MD LAB URINE ORDERABLES Final Resul t [facility] [address] [place] [address] [phone] from Last 3 Months or Most Recently [...] Patient has chronic kidney disease 04/01/2025 Insurance [employer] < 65 [place] [id number] Care Teams Tin Stacker Relationship Specialty Start Date End Date Patito Givens MD [address] [place] [address] PCP - General Family Medicine 11/13/18 Wilber Christie, PharmD [address] [place] [address] Pharmacist Internal Medicine 01/28/23
--- OUTSIDE RECORDS SUMMARY | 2025-04-04 18:38 | XMS_ITS | Encounter Summary ---
Author Organization [employer] Address [address] [facility] 7t [place] [address] Care Team Providers Care Jerker Name Role Phone Patito Wilhelm MD Primary Care Provider [phone] Wilber Christie PharmD Unavailable [phone] Reason for Visit * Reason Onset Date Comments Med Refill 04/06/2023 Encounter Details Date Type Department Care Team (Late st Contact Info) Description 04/06/2023 Telephone [facility] [address] [place] [address] Patito Wilhelm MD [address] [place], [place] [phone] Med Refill Social History Tobacco Use Types [...] (Percocet) 5-325 MG tablet Please sent to [facility]/pharmacy #[id number] [place], [place] - [address] [place] [address] documented in this encounter Plan of Treatment Upcoming Encounters Date Type Department Care Team (Late st Contact Info) Description 04/09/2025 11:00 AM EST Office Visit [address] [address] 05/07/2025 1:30 PM EST Office Visit [address] [address] Patito Wilhelm MD [address] [place] [address] 05/10/2025 1:00 PM EST Medication Management [address] [address] Wilber Christie, Kaia [address] [place] [address] documented as of this encounter Goals Goal [...] documented as of this encounter Care Teams Jerker Relationship Specialty Start Date End Date Patito Wilhelm MD [address] [place] [address] PCP - General Family Medicine 11/13/18 Wilber Christie, PharmD [address] [place] [address] Pharmacist Internal Medicine 01/28/23 documented as of this encounter
--- OUTSIDE RECORDS SUMMARY | 2025-04-04 18:38 | XMS_ITS | Encounter Summary ---
Author Organization [employer] Address [address] [facility] 7 [place] [address] Care Team Providers Care Internal Controls Consultant Name Role Phone Patito Wilhelm MD Primary Care Provider [phone] Wilber Christie PharmD Unavailable [phone] Reason for Visit * Reason Onset Date Comments Call Back Request 03/04/2025 Encounter Details Date Type Department Care Team ([facility] st Contact Info) Description 03/04/2025 Telephone [facility] [address] [place] [address] Patito Wilhelm MD [address] [place] [address] Call Back Request Social History Tobacco Use [...] has a hernia repair surgery tomorrow at [facility] General Surgeryand was inquiring as to how much insulin should be administered tonight and tomorrow. Pt is currently on Novolog and is directed to take 25 units twice daily. Pt states she already called [facility] who directed her to inquire with PCP. Pt advised that this will be sent to PCP for advisement but message may not be ready immediately as PCP is seeing pt. * Telephone Encounter - Seema Hennessy - 03/04/2025 1:06 PM EST Tc from pt having surgery tomorrow pt want to know who much insulin take today . Please contact pt at [phone] documented in this encounter Plan of Treatment Upcoming Encounters Date Type Department Care Team (Late st Contact Info) Description 04/09/2025 11:00 AM EST Office Visit [address] [address] 05/07/2025 1:30 PM EST Office Visit [address] [address] Patito Wilhelm MD [address] [place] [address] 05/10/2025 1:00 PM EST Medication Management [address] [address] Wilber Christie, Kaia [address] [place] [address] documented as of this encounter Goals Goal [...] Plan Weekly blood pressure task No Seema Hennesys Weekly blood pressure task Care Plan Weekly [...] documented as of this encounter Care Teams Internal Controls Consultant Relationship Specialty Start Date End Date Patito Wilhelm MD [address] [place] [address] PCP - General Family Medicine 11/13/18 Wilber Christie, PharmD [address] [place] [address] Pharmacist Internal Medicine 01/28/23 documented as of this encounter
--- OUTSIDE RECORDS SUMMARY | 2025-04-04 18:38 | XMS_ITS | Encounter Summary ---
Author Organization [employer] Address [address] [place] [address] [facility] [place] [address] Care Team Providers Care Naturopathic Doctor Name Role Phone Patito Wilhelm MD Primary Care Provider [phone] Wilber Christie PharmD Unavailable [phone] Reason for Referral * Consultation (Routine) - Authorized Specialty Diagnoses / Procedures Referred By Contac t Referred To Contact Pharmacy Diagnoses Type 2 diabetes mellitus with both eyes affected by mild nonproliferative retinopathy without macular edema, with long-term current use of insulin (HCC) Primary hypertension Moderate persistent asthma without complication Patito Wilhelm MD [address] [place] [address] Phone: tel: fax: Referral ID Status Reason Start Date Expiration Date Visits Requested Visits Authorized [id number] Authorized Consult and Treat 01/24/2025 01/24/2026 6 6 Encounter Details Date Type Department Care Team (Late st Contact Info) Description 01/24/2025 Orders Only [facility] [address] [place] [phone] Patito Wilhelm MD [address] [place] [address] [phone] Type 2 diabetes mellitus with both eyes [...] Upcoming Encounters Date Type Department Care Team ([facility] st Contact Info) Description 04/09/2025 11:00 AM EST Office Visit [facility] [address] [place] [address] 05/07/2025 1:30 PM EST Office Visit [facility] [address] [place] [address] aPtito Wilhelm MD [address] [place] [address] 05/10/2025 1:00 PM EST Medication Management [facility] [address] [place], [place] [phone] Wilber Christie PharmD [address] [place] [address] Scheduled Referrals Name Type Priority Associated Diagnoses [...] 3 AM EDT Narrative 02/18/2025 10:[address] [address] [address] Scan Report Signed Patient: Ameena Tejada MR#: [id number] 33 : 1965 Acct:[id number] Age/Sex: 59 / F ADM Date: 02/16/25 Loc: HO.CT Attending Dr: Marcell Saez MD Ordering Physician: Marcell Saez MD Date of Service: 02/16/25 Procedure(s): CT abdomen pelvis wo IV con Accession Number(s): [id number] cc: Marcell Saez MD; Patito Wilhelm MD Report Number: [id number]: Total DLP = 458.00 mGy-cm Reason for [...] 02/18/25 1009 DD/ 1003 TD/TT: 02/16/25 1018 Senior Technical Support Engineer: Procedure Note Donotuseinterpreter, Image - 02/18/[address] [place] [address] [address] Scan Report Signed Patient: King Tejada#: [id number] 33 : 1965Acct:[id number] Age/Sex: 59 / FADM Date: 02/16/25 Loc: HO.CT Attending Dr: Marcell Saez MD Ordering Physician: Marcell Saez MD Date of Service: 02/16/25 Procedure(s): CT abdomen pelvis wo IV con Accession Number(s): [id number] cc: Marcell Saez MD; Patito Wilhelm MD Report Number: [id number]: Total DLP = 458.00 mGy-cm Reason for [...] by: Reyes Rueda MD 02/18/2025 10:09 AM [facility] Dictated By: Reyes Rueda MD Signed By: <Electronically signed by Reyes Rueda MD in OV> 02/18/25 1009 DD/ 1003 TD/TT: 02/16/25 1018 Senior Technical Support Engineer: ALEXANDRA [facility] External Provider IMG CT PROCEDURES Edited [...] documented as of this encounter Care Teams Naturopathic Doctor Relationship Specialty Start Date End Date Patito Wilhelm MD [address] [place] [address] PCP - General Family Medicine 11/13/18 Wilber Christie, PharmD [address] [place] [address] Pharmacist Internal Medicine 01/28/23 documented as of this encounter
--- OUTSIDE RECORDS SUMMARY | 2025-04-04 18:38 | XMS_ITS | Encounter Summary ---
Author Organization [employer] Address [address] [facility] 7t [place] [address] Care Team Providers Care Application Assistant Name Role Phone Patito Wilhelm MD Primary Care Provider [phone] Wilber Christie PharmD Unavailable [phone] Reason for Visit * Reason Onset Date Comments Med Refill 04/01/2025 Encounter Details Date Type Department Care Team ([facility] st Contact Info) Description 04/01/2025 Refill [facility] [address] [place], [place] [phone] Tosha Phillips, RN [address] [place], [place] [phone] Chronic back pain, unspecified back location, unspecified [...] Description 04/09/2025 11:00 AM EST Office Visit [address] [address] 05/07/2025 1:30 PM EST Office Visit [address] [address] aPtito Wilhelm MD [address] [place] [address] 05/10/2025 1:00 PM EST Medication Management [address] [address] Wilber Christie PharmD [address] [place] [address] documented as of this encounter Goals Goal [...] Weekly blood pressure task No Charmaine Carreon [facility] Weekly blood pressure task Care Plan Weekly blood pressure task No Charmaine Carreon [facility] Patient has chronic kidney disease Care Plan Patient has chronic kidney disease No Charmaine Carreon [facility] Patient has chronic kidney disease Care Plan Patient has chronic kidney disease No Charmaine Carreon [facility] Weekly blood pressure task Care Plan [...] Care Plan Weekly blood pressure task No Germ[place]Christianne [employer] Weekly blood pressure task Care Plan Weekly blood pressure task No [place]ne [facility] Patient has chronic kidney disease Care Plan Patient has chronic kidney disease No [place]ne [employer] Patient has chronic kidney disease Care Plan Patient has chronic kidney disease No [place]ne [employer]IAN Weekly blood pressure task Care Plan Weekly [...] documented as of this encounter Care Teams Application Assistant Relationship Specialty Start Date End Date Patito Wilhelm MD [address] [place] [address] PCP - General Family Medicine 11/13/18 Wilber Christie, PennyD [address] [place] [address] Pharmacist Internal Medicine 01/28/23 documented as of this encounter
--- OUTSIDE RECORDS SUMMARY | 2025-04-04 18:38 | XMS_ITS | Encounter Summary ---
Author Organization [employer] Address [address] [facility] 7t [place] [address] Care Team Providers Care Office Services Assistant Name Role Phone Patito Wilhelm MD Primary Care Provider [phone] Wilber Christie PharmD Unavailable [phone] Reason for Visit * Reason Onset Date Comments Med Refill 03/08/2023 Encounter Details Date Type Department Care Team (Late st Contact Info) Description 03/08/2023 Telephone [facility] [address] [place], [place] [phone] Patito Wilhelm MD [address] [place], [place] [phone] Med Refill Social History Tobacco Use Types [...] (Percocet) 5-325 MG tablet Please sent to [facility]/pharmacy #[id number] [place], [place] - [address] [place] [address] documented in this encounter Plan of Treatment Upcoming Encounters Date Type Department Care Team (Late st Contact Info) Description 04/09/2025 11:00 AM EST Office Visit [address] [address] 05/07/2025 1:30 PM EST Office Visit [address] [address] Patito Wilhelm MD [address] [place] [address] 05/10/2025 1:00 PM EST Medication Management [address] [address] Wilber Christie, Kaia [address] [place] [address] documented as of this encounter Goals Goal [...] documented as of this encounter Care Teams Office Services Assistant Relationship Specialty Start Date End Date Patito Wilhelm MD [address] [place] [address] PCP - General Family Medicine 11/13/18 Wilber Christie, PharmD [address] [place] [address] Pharmacist Internal Medicine 01/28/23 documented as of this encounter
--- OUTSIDE RECORDS SUMMARY | 2025-04-04 18:39 | XMS_ITS | Encounter Summary ---
Author Organization [employer] Address [address] [facility] 7t [place] [address] Care Team Providers Care Hot Plate Press Operator Name Role Phone Patito Wilhelm MD Primary Care Provider [phone] Wilber Christie PharmD Unavailable [phone] Reason for Visit * Reason Onset Date Comments Medication Question 03/19/2025 Encounter Details Date Type Department Care Team ([facility] st Contact Info) Description 03/19/2025 Telephone [facility] [address] [place], [place] [phone] Patito Wilhelm MD [address] [place], [place] [phone] Medication Question Social History Tobacco Use Types [...] call back regarding alternative Contact pt at [phone] documented in this encounter Plan of Treatment Upcoming Encounters Date Type Department Care Team (Late st Contact Info) Description 04/09/2025 11:00 AM EST Office Visit [facility] [address] [place] [address] 05/07/2025 1:30 PM EST Office Visit [address] [address] Patito Wilhelm MD [address] [place] [address] 05/10/2025 1:00 PM EST Medication Management [address] [address] Wilber Christie, PharmD [address] [place] [address] documented as of this encounter Goals Goal [...] has chronic kidney disease No Charmaine Carreon [facility] Patient has chronic kidney disease Care Plan Patient has chronic kidney disease No Charmaine Carreon [facility] Weekly blood pressure task Care [...] documented as of this encounter Care Teams Hot Plate Press Operator Relationship Specialty Start Date End Date Patito Wilhelm MD [address] [place] [address] PCP - General Family Medicine 11/13/18 Wilber Christie, PennyD [address] [place] [address] Pharmacist Internal Medicine 01/28/23 documented as of this encounter
--- OUTSIDE RECORDS SUMMARY | 2025-04-04 18:39 | XMS_ITS | Encounter Summary ---
Author Organization [employer] Address 75 [facility] 7t [place] [address] Care Team Providers Care Proposal Editor Name Role Phone Patito Wilhelm MD Primary Care Provider [phone] Wilber Christie PharmD Unavailable [phone] Reason for Visit * Reason Onset Date Comments Med Refill 12/02/2023 Encounter Details Date Type Department Care Team (Late st Contact Info) Description 12/02/2023 Refill [facility] [address] [place] [address] Patito Wilhelm MD [address] [place] [address] Chronic bilateral low back pain, unspecified whether [...] 5-325 MG tablet To be sent to: [facility]/pharmacy #[employer] [place], [place] [address] [place] Prescription last filled on 11/04/23 0 Refills Left ENEDINA with PCP: 08/30/23 * Telephone Encounter - Rodrigue Lawton - 12/02/2023 10:30 AM EDT TC from pt requesting medication refill. Medications needing refill : oxyCODONE-acetaminophen (Percocet) 5-325 MG tablet To be sent to: [facility] [facility] [place] documented in this encounter Plan of Treatment Upcoming Encounters Date Type Department Care Team (Late st Contact Info) Description 04/09/2025 11:00 AM EST Office Visit [address] [address] 05/07/2025 1:30 PM EST Office Visit [address] [address] Patito Wilhelm MD [address] [place] [address] 05/10/2025 1:00 PM EST Medication Management [address] [phone] Wilber Christie PharmD [address] [place] [address] documented as of this encounter Goals Goal [...] documented as of this encounter Care Teams Proposal Editor Relationship Specialty Start Date End Date Patito Wilhelm MD [address] [place] [address] PCP - General Family Medicine 11/13/18 Wilber Christie PharmD [address] [place] [address] [phone] Pharmacist Internal Medicine 01/28/23 documented as of this encounter
--- OUTSIDE RECORDS SUMMARY | 2025-04-04 18:39 | XMS_ITS | Encounter Summary ---
Author Organization [employer] Address [address] [facility] 7t [place] [address] Care Team Providers Care Die Maker Name Role Phone Patito Wilhelm MD Primary Care Provider [phone] Wilber Christie PharmD Unavailable [phone] Reason for Visit * Reason Onset Date Comments Appointment Request 10/24/2023 Encounter Details Date Type Department Care Team ([facility] st Contact Info) Description 10/24/[address] [facility] [address] [place], [place] [phone] Patito Wilhelm MD [address] [place], [place] [phone] Appointment Request Social History Tobacco Use Types [...] Description 04/09/2025 11:00 AM EST Office Visit [address] [address] 05/07/2025 1:30 PM EST Office Visit [address] [address] Patito Wilhelm MD [address] [place] [address] 05/10/2025 1:00 PM EST Medication Management [address] [address] Wilber Christie PharmD [address] [place] [address] documented as of this encounter Goals Goal [...] documented as of this encounter Care Teams Die Maker Relationship Specialty Start Date End Date Patito Wilhelm MD [address] [place] [address] PCP - General Family Medicine 11/13/18 Wilber Christie, Kaia [address] [place] [address] Pharmacist Internal Medicine 01/28/23 documented as of this encounter
--- OUTSIDE RECORDS SUMMARY | 2025-04-04 18:39 | XMS_ITS | Encounter Summary ---
Author Organization [employer] Address [address] [place] [address] 7 [place] [address] Care Team Providers Care Machine Shop Specialist Name Role Phone Patito Wilhelm MD Primary Care Provider [phone] Wilber Christie PharmD Unavailable [phone] Encounter Details Date Type Department Care Team (Latest Contact Info) Description 02/21/2019 Abstract [facility] CONVERSIONS Dental, Provider, DDS Social [...] 04/09/2025 11:00 AM EST Office Visit [address] [address] 05/07/2025 1:30 PM EST Office Visit [facility] MEDICINE [address] [place] [address] Patito Wilhelm MD [address] [place] [address] 05/10/2025 1:00 PM EST Medication Management [facility] MEDICINE [address] [place] [address] Wilber Christie, PharmD [address] [place] [address] documented as of this encounter Visit Diagnoses Not on filedocumented in this encounter Care Teams Machine Shop Specialist Relationship Specialty Start Date End Date Patito Wilhelm MD [address] [place] [address] PCP - General Family Medicine 11/13/18 Wilber Christie, PennyD [address] [place] [address] Pharmacist Internal Medicine 01/28/23 documented as of this encounter
--- OUTSIDE RECORDS SUMMARY | 2025-04-04 18:39 | XMS_ITS | Encounter Summary ---
Author Organization [employer] Address [address] [facility] 7t [place] [address] Care Team Providers Care Auditing Coder Name Role Phone Patito Wilhelm MD Primary Care Provider [phone] Wilber Christie PharmD Unavailable [phone] Reason for Visit * Reason Onset Date Comments Appointment Request 10/19/2023 Encounter Details Date Type Department Care Team ([facility] st Contact Info) Description 10/19/2023 Telephone [facility] MEDICINE 230 [place], [place] [phone] Patito Wilhelm MD [address] [place], [place] [phone] Appointment Request Social History Tobacco Use Types [...] week with PCP. Please contact pt at [phone] documented in this encounter Plan of Treatment Upcoming Encounters Date Type Department Care Team (Late st Contact Info) Description 04/09/2025 11:00 AM EST Office Visit [address] [address] 05/07/2025 1:30 PM EST Office Visit [address] [address] Patito Wilhelm MD [address] [place] [address] 05/10/2025 1:00 PM EST Medication Management [address] [address] Wilber Christie PharmD [address] [place] [address] documented as of this encounter Goals Goal [...] documented as of this encounter Care Teams Auditing Coder Relationship Specialty Start Date End Date Patito Wilhelm MD [address] [place] [address] PCP - General Family Medicine 11/13/18 Wilber Christie, PharmD [address] [place] [address] Pharmacist Internal Medicine 01/28/23 documented as of this encounter
--- OUTSIDE RECORDS SUMMARY | 2025-04-04 18:39 | XMS_ITS | Encounter Summary ---
Author Organization [employer] Address [address] [facility] 7t [place] [address] Care Team Providers Care Animal Biologist Name Role Phone Patito Wilhelm MD Primary Care Provider [phone] Wilber Christie PharmD Unavailable [phone] Reason for Visit * Reason Onset Date Comments Med Refill 09/14/2024 Encounter Details Date Type Department Care Team (Late st Contact Info) Description 09/14/2024 Telephone [facility] MEDICINE 230 [place] [address] Patito Wilhelm MD 230 [place] [address] Med Refill Social History Tobacco Use Types [...] 5-325 MG tablet To be sent to: [facility]/pharmacy #[id number] [place], [place] - [address] [place] [address] documented in this encounter Plan of Treatment Upcoming Encounters Date Type Department Care Team ([facility] st Contact Info) Description 04/09/2025 11:00 AM EST Office Visit [facility] MEDICINE [address] [place] [address] 05/07/2025 1:30 PM EST Office Visit [address] [address] Patito Wilhelm MD [address] [place] [address] 05/10/2025 1:00 PM EST Medication Management [facility] MEDICINE [address] [place] [address] Wilber Christie, PharmD 230 [place] [address] documented as of this encounter Goals Goal [...] documented as of this encounter Care Teams Animal Biologist Relationship Specialty Start Date End Date Patito Wilhelm MD [address] [place] [address] PCP - General Family Medicine 11/13/18 Wilber Christie PharmD [address] [place] [address] Pharmacist Internal Medicine 01/28/23 documented as of this encounter
--- OUTSIDE RECORDS SUMMARY | 2025-04-04 18:39 | XMS_ITS | Encounter Summary ---
Author Organization [employer] Address [address] [place] [address] 7 [place] [address] Care Team Providers Care Plodder Operator Name Role Phone Patito Wilhelm MD Primary Care Provider [phone] Wilber Christie PharmD Unavailable [phone] Encounter Details Date Type Department Care Team (Latest Contact Info) Description 03/24/2020 Abstract [facility] CONVERSIONS Dental, Provider, DDS Social [...] Description 04/09/2025 11:00 AM EST Office Visit [facility] MEDICINE [address] [place] [address] 05/07/2025 1:30 PM EST Office Visit [facility] MEDICINE [address] [place] [address] Patito Wilhelm MD [address] [place] [address] 05/10/2025 1:00 PM EST Medication Management [facility] MEDICINE [address] [place] [address] Wilber Christie, PharmD [address] [place] [address] documented as of this encounter Visit Diagnoses Not on filedocumented in this encounter Care Teams Plodder Operator Relationship Specialty Start Date End Date Patito Wilhelm MD [address] [place] [address] PCP - General Family Medicine 11/13/18 Wilber Christie, PennyD [address] [place] [address] Pharmacist Internal Medicine 01/28/23 documented as of this encounter
--- OUTSIDE RECORDS SUMMARY | 2025-04-04 18:39 | XMS_ITS | Encounter Summary ---
Author Organization [employer] Address 75 [facility] 7 [place] [address] Care Team Providers Care Striper Spray Gun Name Role Phone Patito Wilhelm MD Primary Care Provider [phone] Wilber Christie PharmD Unavailable [phone] Reason for Visit * Reason Onset Date Comments Med Refill 03/04/2025 Encounter Details Date Type Department Care Team (Late st Contact Info) Description 03/04/2025 Telephone [facility] MEDICINE 230 [place] [address] Patito Wilhelm MD 230 [place] [address] Med Refill Social History Tobacco Use Types [...] 5-325 MG tablet To be sent to: [facility]/pharmacy #[id number] [place], [place] - [address] [place] [address] documented in this encounter Plan of Treatment Upcoming Encounters Date Type Department Care Team (Late st Contact Info) Description 04/09/2025 11:00 AM EST Office Visit [facility] MEDICINE [address] [place] [address] 05/07/2025 1:30 PM EST Office Visit [facility] MEDICINE [address] [place] [address] Patito Wilhelm MD [address] [place] [address] 05/10/2025 1:00 PM EST Medication Management [facility] MEDICINE [address] [place] [address] Wilber Christie, PharmD [address] [place] [address] documented as of this encounter Goals Goal [...] documented as of this encounter Care Teams Striper Spray Gun Relationship Specialty Start Date End Date Patito Wilhelm MD 230 [place] [address] PCP - General Family Medicine 11/13/18 Wilber Christie, PennyD 230 [place] [address] Pharmacist Internal Medicine 01/28/23 documented as of this encounter
--- OUTSIDE RECORDS SUMMARY | 2025-04-04 18:39 | XMS_ITS | Encounter Summary ---
Author Organization [employer] Address [address] [place] [address] 7 [place] [address] Care Team Providers Care Skid Strapper Name Role Phone Patito Wilhelm MD Primary Care Provider [phone] Wilber Christie PharmD Unavailable [phone] Reason for Referral * Consultation (Routine) - Closed Specialty Diagnoses / Procedures Referred By [facility] t Referred To Contact Pharmacy Diagnoses Primary hypertension Type 2 diabetes mellitus with both eyes affected by mild nonproliferative retinopathy without macular edema, with long-term current use of insulin (HCC) Patito Wilhelm MD [address] [place] [address] Phone: tel: fax: Referral ID Status Reason Start Date Expiration Date V isits Requested Visits Authorized [id number] Closed Consult and Treat 02/09/2024 02/08/2025 6 6 Encounter Details Date Type Department Care Team (Late st Contact Info) Description 02/09/2024 Orders Only [facility] MEDICINE [address] [place] [address] Patito Wilhelm MD 230 [place], [place] [phone] Primary hypertension (Primary Dx); Type 2 diabetes mellitus with both eyes affected by mild nonproliferative retinopathy without macular edema, with long-term current use of insulin ([facility]/HCC) Social History Tobacco Use Types Packs/Day Years [...] AM EST Office Visit [facility] MEDICINE [address] [place] [address] 05/07/2025 1:30 PM EST Office Visit [facility] MEDICINE [address] [place] [address] Patito Wilhelm MD [address] [place] [address] 05/10/2025 1:00 PM EST Medication Management [facility] MEDICINE 230 [place] [address] Wilber Christie PharmD [address] [place] [address] Scheduled Referrals Name Type Priority Associated Diagnoses Orde r Schedule Referral to Pharmacy CDTM Outpatient Referral Routine Primary hypertension Type 2 diabetes mellitus with both eyes affected by mild nonproliferative retinopathy without macular edema, with long-term current use of insulin ([facility]) Ordered: 02/09/2024 documented as of this encounter [...] edema, with long-term current use of insulin ([facility]) documented in this encounter Additional Health Concerns Assessment Noted Time PHQ-9 Depression Total Score: 11 024 1:39 PM EDT documented as of this encounter Care Teams Skid Strapper Relationship Specialty Start Date End Date Patito Wilhelm MD [address] [place] [address] PCP - General Family Medicine 11/13/18 Wilber Christie PharmD [address] [place] [address] Pharmacist Internal Medicine 01/28/23 documented as of this encounter
--- OUTSIDE RECORDS SUMMARY | 2025-04-04 18:39 | XMS_ITS | Patient Health Record ---
Author Organization [facility] Address [address] [place] [address] Care Team Providers Care Leaflet Or Newspaper Deliverer Name Role Phone Choco GANDHI, Patito Primary Care Provider Leonardo Harding [phone] Allergies Allergen (clinical drug ingredient) Drug/Non Drug [...] Status Risk Notes Problem Colon cancer screening (231432231) Colon cancer screening (Z12.11) Active confirmed Problem Diverticular disease of colon (988769242) Diverticulosis of large intestine without perforation or abscess without bleeding (K57.30) Active confirmed Problem Irritable bowel syndrome with diarrhea (779992190) Irritable bowel syndrome with diarrhea (K58.0) Active confirmed Problem Right upper quadrant pain (335546571) Right upper quadrant pain (R10.11) Active confirmed Problem Nausea (338219650) Nausea (R11.0) Active confir med Problem Gastroesophageal reflux disease without esophagitis (973742246) Gastroesophageal reflux disease without esophagitis (K21.9) Active confirmed Problem Chronic hepatitis C (025918180) Chronic hepatitis C without hepatic coma (B18.2) Active confirmed Problem Chronic hepatitis C (432069952) Chronic hepatitis C (B18.2) Active confirmed Problem Right upper quadrant pain (515300532) Abdominal pain, right upper quadrant (R10.11) Active confirmed Problem Belching (17855444) Belching (R14.2) Active con firmed Problem History of hepatitis C (63727590727431) History of hepatitis C (Z86.19) Active confirmed Problem Right upper quadrant pain (826675052) RUQ abdominal pain (R10.11) Active confirmed Problem Irritable bowel syndrome (11685009) Irritable bowel syndrome, unspecified type (K58.9) Active confirmed Problem Gallbladder disease (76057201) Gallbladder sludge (K82.8) Active confirmed Problem Hepatic fibrosis (disorder) (26314916) Liver fibrosis (K74.00) Active confirmed Encounters Encounter Location Date Provider Diagnosis [facility] [address] [place] [address] 07/19/2024 Leonardo Stratton Plan Of Treatment Pending [...] Name:Leonardo Stratton , 05/31/2025 02:20:00 PM, [address], [address], [place], [address], Insurance Providers Payer Name Payer Address Payer Phone Subscriber Number Group Number Insured Name Patient Relationship to Insured Coverage Start Date Coverage End Date [facility] [address] Attn Claims JOSE Workman [id number] JAMEL NASSAR Self - patient is the [...] with hiatal hernia Irritable bowel syndrome Denies [place], stroke, and renal disease Fatty liver EGD [...]
--- OUTSIDE RECORDS SUMMARY | 2025-04-04 18:39 | XMS_ITS | Encounter Summary ---
Author Organization [employer] Address [address] [place] [address] 7t [place] [address] Care Team Providers Care Sheet Rock Applier Name Role Phone Patito Wilhelm MD Primary Care Provider [phone] Wilber Christie PharmD Unavailable [phone] Reason for Visit * Reason Comments Med Refill Encounter Details Date Type Department Care Team (Late Contact Info) Description 08/11/2022 Refill [facility] MEDICINE [address] [place] [address] Racquel Fu MD [address] [place] [address] Social History Tobacco Use Types Packs/Day Years [...] Description 04/09/2025 11:00 AM EST Office Visit [facility] [address] 05/07/2025 1:30 PM EST Office Visit [address] [address] [place] [address] 05/10/2025 1:00 PM EST Medication Management [facility] [place] [address] Wilber Christie, PharmD [address] [place] [address] documented as of this encounter Visit Diagnoses Not on filedocumented in this encounter Additional Health Concerns Assessment Noted Time PHQ-9 Depression Total Score: 6 07/27/19 1:10 PM EDT documented as of this encounter Care Teams Sheet Rock Applier Relationship Specialty Start Date End Date Patito Wilhelm MD [address] [place] [address] PCP - General Family Medicine 11/13/18 Wilber Christie, PharmD [address] [place] [address] Pharmacist Internal Medicine 01/28/23 documented as of this encounter
== END 2025-04-04 14:59 | disposition home or self-care (01) ==
LOC: HO.HOS 14:30
PROVIDERS: PCP Family Medicine; Visit Provider Orthopaedic Surgery
DX: M25.512 Pain in left shoulder (principal)
CPT/HCPCS: 20610; 99213

== ENCOUNTER → 2025-04-04 14:30 | Outpatient (BNVA) | payer OTHER, SELFPAY | PROVIDERS: PCP Family Medicine; Visit Provider Orthopaedic Surgery | DX: M25.512 Pain in left shoulder (principal) | CPT/HCPCS: 20610; 99212; J1010; J2003 ==

== ENCOUNTER 2025-04-09 13:43 | Outpatient (AMB) | payer OTHER, SELFPAY ==
--- OUTSIDE RECORDS SUMMARY | 2023-10-19 03:30 | XMS_ITS ---
Author Organization [facility] Address [address] [place] [address] Care Team Providers Care Fruit Checker Name Role Phone Choco GADNHI, Patito Primary Care Provider Leonardo Harding [phone] REASON FOR VISIT screening Problems Problem Type SNOMED Code ICD Code Onset Dates Problem Status W/U Status Risk Notes Problem Diverticular disease of colon (516833213) Diverticulosis of large intestine without perforation or abscess without bleeding (K57.30) Active confirmed Encounters Encounter Location Date Provider Diagnosis [facility] Outpatient [address] [place], [place] [id number] 10/19/2023 Leonardo Stratton Encounter for scre ening colonoscopy Z12.11 ; Diverticulosis of large intestine without perforation or abscess without bleeding K57.30 and Other hemorrhoids K64.8 Assessments Encounter Date Diagnosis (ICD Code) Assessment Notes Treatment Notes Treatment Clinical Notes Section Notes 10/19/2023 Encounter for screening colonoscopy (ICD-10 - Z12.11) 10/19/2023 Diverticulosis of large intestine without perforation or abscess without bleeding (ICD-10 - K57.30) 10/19/2023 Other hemorrhoids (ICD-10 - K64.8) Plan Of Treatment Next Appt Details Provider Name:Leonardo Stratton , 05/31/2025 02:20:00 PM, [address], [address], [place], [address], Progress Notes * NASSARANDERSONB: 5 (60 yo F)Acc No.[id number]:10/19/2023 COLON WITH MAC Patient: Eli WaqarSTEPANALLAN JAMEL Provider: Layton Stratton MD :1965 A ge:58 Y S ex:Female Date:10/19/2023 Address:[address] [place] [address] [address], [id number] Pcp:Patito Wilhelm MD Subjective: * Chief Complaints: * S creening Assessment: * Assessment: 1. E ncounter for screening colonoscopy - Z12.11 (Primary) 2 . D iverticulosis of large intestine without perforation or abscess without bleeding - K57.30 3 .?Other hemorrhoids - K64.8 Plan: * Procedure Codes: 4 5378 DIAGNOSTIC COLONOSCOPY Billing Information: * Procedure Codes: 80219 DIAGNOSTIC COLONOSCOPY. * The named appointment provid er may or may not be the originator of this progress note, and it is not deemed complete until electronically signed by the appointment provider. Sign off status: Pending * Provider: Layton Stratton MD Date: 0 10/19/2023 Generated for Nory funk/Eulalia/Lanitting on: 1 06/10/2024 02:53 PM EST
--- OUTSIDE RECORDS SUMMARY | 2024-07-19 04:20 | XMS_ITS ---
Author Organization [facility] Address [address] [place] [address] Care Team Providers Care Benefits Coordinator Name Role Phone Choco GANDHI, Patito Primary Care Provider Leonardo Harding [phone] REASON FOR VISIT Patient presents today for hepatitis c Encounters Encounter Location Date Provider Diagnosis [facility] [address] [place] [address] 07/19/2024 Leonardo Stratton Plan Of Treatment Next Appt Details Provider Name:Leonardo Stratton , 05/31/2025 02:20:00 PM, [address], [address], [place], [address], Progress Notes * ANDERSON NASSARB: 5 (60 yo F)Acc No.[id number]:07/19/2024 Progress Notes Patient: JAMEL RICHARD Provider: Layton Stratton MD :1965 A ge:59 Y S ex:Female Date:07/19/2024 Address:[address] [place] [address] [address] [id number] Pcp:Patito Wilhelm MD Subjective: * Chief Complaints: * P atient presents today for hepatitis c * The named appointment provid er may or may not be the originator of this progress note, and it is not deemed complete until electronically signed by the appointment provider. Sign off status: Pending * Provider: Layton Stratton MD Date: 0 07/19/2024 Generated for Nory funk/Eulalia/eTransmitting on: 06/10/2024 02:53 PM EST
--- OUTSIDE RECORDS SUMMARY | 2025-04-09 11:00 | XMS_ITS | Encounter Summary ---
Author Organization [employer] Address [address] [facility] 7t [place] [address] Care Team Providers Care Network/Telecom Engineer Name Role Phone Patito Wilhelm MD Primary Care Provider [phone] Wilber Christie PharmD Unavailable [phone] Encounter Details Date Type Department Care Team ([facility] st Contact Info) Description 04/09/2025 11:00 AM EST Office Visit [facility] MEDICINE 230 [place] [address] Kori Carrillo FNP [address] [place] [address] Arrived Social History Tobacco Use Types Packs/Day Years [...] Care Team (Late st Contact Info) Description 05/07/2025 1:30 PM EST Office Visit [address] [address] Patito Wilhelm MD [address] [place] [address] 05/10/2025 1:00 PM EST Medication Management [address] [address] Wilber Christie, PennyD [address] [place] [address] 06/11/2025 11:00 AM EST Office Visit [address] [address] documented as of this encounter Goals Goal [...] Weekly blood pressure task No Charmaine Carreon [facility] Weekly blood pressure task Care Plan Weekly blood pressure task No Charmaine Carreon [facility] Patient has chronic kidney disease Care Plan Patient has chronic kidney disease No Charmaine Carreon [facility] Patient has chronic kidney disease Care Plan Patient has chronic kidney disease No Charmaine Carreon [facility] Weekly blood pressure task Care [...] Care Plan Weekly blood pressure task No MurphyChristianne FNP Weekly blood pressure task Care Plan Weekly blood pressure task No MurphyChristianne [employer] SUPERVISOR Patient has chronic kidney disease Care Plan Patient has chronic kidney disease No MurphyChristianne [employer] SUPERVISOR Patient has chronic kidney disease Care Plan Patient has chronic kidney disease No MurphyChristianne FNP Weekly blood pressure task Care Plan [...] documented as of this encounter Care Teams Network/Telecom Engineer Relationship Specialty Start Date End Date Patito Wilhelm MD [address] [place] [address] PCP - General Family Medicine 11/13/18 Wilber Christie, PennyD [address] [place] [address] Pharmacist Internal Medicine 01/28/23 documented as of this encounter
[2025-04-09 13:44] VITALS: BP 118/57; PULSE 67; BMI 29.7
--- NOTE | 2025-04-09 13:44 | MHC.OFFVIS ---
Vital Signs 04/09/25 13:44 Height 5 ft Weight 152 lb BMI 29.7 BP 118/57 L Blood Pressure Location Rt brachial Position Sitting Pulse 67 Intake Visit Reasons: 3wk S/P incisional hernia Intake Note: Patient here to re-evaluation post incisional hernia repair. Last office visit 03-20-2025. Patient c/o: itch along incision scar line. Surgery(FM): 03-05-2025 Supply Chain Business Analyst Required: No Accompanied by: Self / Same As Patient Allergies rosiglitazone (Avandia) Allergy (Severe, Verified 04/09/25 13:50) rash/hepatitis C cyclobenzaprine (From FLEXERIL) Allergy (Intermediate, Verified 04/09/25 13:50) HIVES latex (LATEX) Allergy (Intermediate, Verified 04/09/25 13:50) RASH azithromycin (From Zithromax) Allergy (Mild, Verified 04/09/25 13:50) SWELLING glipizide (From Glucotrol) Allergy (Mild, Verified 04/09/25 13:50) SWELLING levofloxacin (From Levaquin) Allergy (Mild, Verified 04/09/25 13:50) leg swelling aspirin (Aspirin) Allergy (Unknown, Verified 04/09/25 13:50) reaction unknown-was years ago Flexeril Allergy (Severe, Uncoded 04/09/25 13:50) Rash HPI HPI 3wk S/P incisional hernia: Details: She is doing very well. Only complaint is some itching at the inferior aspect of the incision site. She denies any drainage. She denies any fevers at home. Bowel function at baseline, she reports she is eating well. [facility] Medical History (Updated 03/20/25 @ 13:53 by Pravin Guardado MD) Incisional hernia Right sided abdominal pain NIKI (obstructive sleep apnea) Bronchitis Lumbar radiculopathy Obesity Macromastia Meralgia paraesthetica Insomnia Palpitations Arthritis Back pain Diabetes History of abdominal hernia GERD (gastroesophageal reflux disease) Irritable bowel syndrome Interstitial cystitis Jaundice Hepatitis C Depression Neuropathy Numbness History of headache Vertigo Asthma Elevated cholesterol HTN (hypertension) Subcutaneous mass of left foot Calcaneal spur, unspecified foot Hernia Surgical History (Updated 03/26/25 @ 10:40 by Ravindra Baxter PA-C) History of incisional hernia repair (03/05/25) Hx of arthroscopy of shoulder Hx of hysterectomy Hx of elbow surgery Hx of removal of cyst Hx of foot surgery Hx of section History of bladder surgery H/O colonoscopy History of cholecystectomy History of carpal tunnel surgery of right wrist History of carpal tunnel surgery of left wrist H/O tubal ligation History of repair of rotator cuff History of liver biopsy Family History Father Gastric cancer Mother Coronary disease Social History Are you a primary career coach to a significant other at home: No Do you presently have visiting nurse or other home services: No Alcohol intake: never Comment: medicated Patient Tobacco Use Status: Never used Tobacco Current occupational status: disabled Current occupation: rt handed Physical Exam Vital Signs: Last Vital Signs Pulse 67 04/09/25 13:44 BP 118/57 L 04/09/25 13:44 BMI result Body Mass Index 29.7 Const General: comfortable and no acute distress Orientation/consciousness: patient oriented x3 Resp Effort & Inspection: normal respiratory effort and able to speak in complete sentences GI Other: Hernia repair incision site: Well healed incision, there is a small 2 mm scab on the inferior aspect. No fluid collection, no edema, no erythema, no discharge. Nontender to palpation. No recurrence on Valsalva when standing Inspection: No distended Palpation (GI): Soft to palpation and nontender Neuro General: patient oriented x3 Assessment & Plan Assessment & Plan (1) History of incisional hernia repair: Onset Date: 03/05/25 Comment: Marcell Saez MD Code(s): Z98.890 - Other specified postprocedural states; Z87.19 - Personal history of other diseases of the digestive system Category: Medical Plan 60-year-old female s/p incisional hernia repair on 03/05/[address] Saez returning to the office for 2nd postop visit. She is doing well, only complaining of some itching at the inferior aspect of the incision site. Denies pain. Diet and bowel function are at baseline. She still has been avoiding heavy lifting. Denies drainage or redness around the incision site. Denying fevers at home. On exam the incision site appears to be well healed there was a 2 mm scab at the inferior aspect of the incision but does not appear to be draining there was no fluid collection deep to this. There was no surrounding cellulitis. Does not appear to be acutely infected. Advised her to avoid itching this area. She should continue to avoid creams or lotions to this area. Otherwise abdomen is soft and benign. There was no evidence of recurrence of this hernia with Valsalva. She is okay to resume activity as tolerated. Recommended starting at about half of her baseline and progressing towards this over the next few weeks. No longer requiring follow up, can follow up as needed with any concerns or questions in the future Coding Level of Care Code Est Pt Level 3 (95825) Diagnoses History of incisional hernia repair Z98.890; Z87.19
--- OUTSIDE RECORDS SUMMARY | 2025-04-09 14:52 | XMS_ITS | Encounter Summary ---
Author Organization [employer] Address [address] [facility] 7t [place] [address] Care Team Providers Care Surgical Scheduler Name Role Phone Patito Wilhelm MD Primary Care Provider [phone] Wilber Christie PharmD Unavailable [phone] Encounter Details Date Type Department Care Team ([facility] st Contact Info) Description 04/02/2025 Orders Only [facility] MEDICINE [address] [place] [address] Patito Wilhelm MD [address] [place] [address] Social History Tobacco Use Types Packs/Day Years [...] Description 05/07/2025 1:30 PM EST Office Visit [address] [address] Patito Wilhelm MD [address] [place] [address] 05/10/2025 1:00 PM EST Medication Management [address] [address] Wilber Christie, PharmD [address] [place] [address] 06/11/2025 11:00 AM EST Office Visit [address] [address] documented as of this encounter Goals Goal Patient Goal Type Associated Problems Recent Progress Patient-Stated? Author Blood Pressure < 140/90 Blood Pressure 120/60(2024 3:07 PM EDT) No Wilber Christie, PharmKit Hemoglobin A1c < 7 Result Component 6.1( 3:10 PM EDT) No Wilber Christie, Kaia Help patients manage their type 2 diabetes Care Plan Help patients manage their type 2 diabetes No Gerhard, Jacknerry Weekly blood pressure task Care Plan Weekly [...] Weekly blood pressure task No Charmaine Carreon [facility] Weekly blood pressure task Care Plan Weekly blood pressure task No Charmaine Carreon [facility] Patient has chronic kidney disease Care Plan Patient has chronic kidney disease No Charmaine Carreon [facility] Patient has chronic kidney disease Care Plan Patient has chronic kidney disease No Charmaine Carreon [facility] Weekly blood pressure task Care Plan [...] Care Plan Weekly blood pressure task No MoodyChristianne [facility] Weekly blood pressure task Care Plan Weekly blood pressure task No [facility] Patient has chronic kidney disease Care Plan Patient has chronic kidney disease No [facility] Patient has chronic kidney disease Care Plan Patient has chronic kidney disease No MoodyChristianne [employer] Weekly blood pressure task Care Plan Weekly [...] blood pressure task No Colon Puente, Dominga Weekly blood pressure [...] Phillips RN documented as of this encounter Procedures Procedure Name Priority Date/Time Associated Diagnosis Comments BI MAMMOGRAM SCREENING TOMOSYNTHESIS BILATERAL Routine 04/02/2025 1:24 PM EST documented in this encounter Results * BI Mammogram Screening Tomosynthesis Bilateral (04/02/2025 1:24 PM EST) Anatomical Region Laterality Modality Breast Bilateral Mammography 04/02/2025 1:24 PM EST Narrative 04/08/2025 1:26 PM EST [facility] [address] [place] [address] Mammography Report Signed Patient: Ameena Tejada MR#: [id number] 33 : 1965 Acct:[id number] Age/Sex: 60 / F ADM Date: 04/02/25 Loc: HO.MAMMO Attending Dr: Patito Wilhelm MD Ordering Physician: Patito Wilhelm MD Results: 2Benign Date of Service: 04/02/25 Follow Up: 1 Year From [facility] ina Mammogram Procedure(s): MM tomosynthesis screening BI Accession Number(s): [id number] cc: Patito Wilhelm MD Reason For Exam: SCREENING EXAMINATION: MM SCREENING DIGITAL BREAST TOMOSYNTHESIS, BILATERAL CLINICAL INFORMATION: Screening. Asymptomatic. COMPARISON: Mammography: Comparison is made with available priors TECHNIQUE: Digital breast mammography with tomosynthesis is performed in both the craniocaudal and mediolateral oblique views along with computer-aided detection (CAD). FINDINGS: There are scattered areas of fibroglandular density. Bilateral scattered asymmetries are stable. There are no significant masses, abnormal calcifications, or other abnormalities. MM/MM tomosynthesis screening BI IMPRESSION: No mammographic evidence of malignancy. ASSESSMENT: BI-RADS Category 2: Benign RECOMMENDATION: Routine annual mammography screening. 1 year F/U This examination should not preclude the clinical evaluation of a suspicious palpable abnormality. This patient's information was entered into a reminder system with a target due date for their next mammogram. Electronically signed by: Mare Cardona DO 04/08/2025 01:23 PM EST Dictated By: Mare Cardona DO Signed By: <Electronically signed by Mare Cardona DO in OV> 04/08/25 1323 DD/ 1324 TD/TT: 04/02/25 1330 Back Hand: Procedure Note Donotuseinterpreter, Image - 04/08/2025 [facility] [address] [place] [address] Mammography Report Signed Patient: King Tejada#: [id number] 33 : 1965Acct:[id number] Age/Sex: 60 / FADM Date: 04/02/25 Loc: HO.MAMMO Attending Dr: Patito Wilhelm MD Ordering Physician: Patito Wilhelm MDResults: 2Benign Date of Service: 04/02/25Follow Up: 1 Year From Orig inal Mammogram Procedure(s): MM tomosynthesis screening BI Accession Number(s): [id number] cc: Patito Wilhelm MD Reason For Exam: SCREENING EXAMINATION: MM SCREENING DIGITAL BREAST TOMOSYNTHESIS, BILATERAL CLINICAL INFORMATION: Screening. Asymptomatic. COMPARISON: Mammography: Comparison is made with available priors TECHNIQUE: Digital breast mammography with tomosynthesis is performed in both the craniocaudal and mediolateral oblique views along with computer-aided detection (CAD). FINDINGS: There are scattered areas of fibroglandular density. Bilateral scattered asymmetries are stable. There are no significant masses, abnormal calcifications, or other abnormalities. MM/MM tomosynthesis screening BI IMPRESSION: No mammographic evidence of malignancy. ASSESSMENT: BI-RADS Category 2: Benign RECOMMENDATION: Routine annual mammography screening. 1 year F/U This examination should not preclude the clinical evaluation of a suspicious palpable abnormality. This patient's information was entered into a reminder system with a target due date for their next mammogram. Electronically signed by: Mare Cardona DO 04/08/2025 01:23 PM [facility] Dictated By: Mare Cardona DO Signed By: <Electronically signed by Mare Cardona DO in OV> 04/08/25 1323 DD/ 1324 TD/TT: 04/02/25 1330 Back Hand: Patito Wilhelm MD IMG BI PROCEDURES Edited Result - Final documented in this encounter Visit Diagnoses Not [...] documented as of this encounter Care Teams Surgical Scheduler Relationship Specialty Start Date End Date Patito Wilhelm MD [address] [place] [address] PCP - General Family Medicine 11/13/18 Wilber Christie, PennyD [address] [place] [address] Pharmacist Internal Medicine 01/28/23 documented as of this encounter
--- OUTSIDE RECORDS SUMMARY | 2025-04-09 14:53 | XMS_ITS | Encounter Summary ---
Author Organization [employer] Address [address] [place] [address] [facility] [place] [address] Care Team Providers Care Chainman Name Role Phone Patito Wilhelm MD Primary Care Provider [phone] Wilber Christie PharmD Unavailable [phone] Reason for Referral * Consultation (Routine) - Authorized Specialty Diagnoses / Procedures Referred By Contac t Referred To Contact Pharmacy Diagnoses Type 2 diabetes mellitus with both eyes affected by mild nonproliferative retinopathy without macular edema, with long-term current use of insulin (HCC) Primary hypertension Moderate persistent asthma without complication Patito Wilhelm MD [address] [place] [address] Phone: tel: fax: Referral ID Status Reason Start Date Expiration Date Visits Requested Visits Authorized [id number] Authorized Consult and Treat 01/24/2025 01/24/2026 6 6 Encounter Details Date Type Department Care Team (Late st Contact Info) Description 01/24/2025 Orders Only [facility] MEDICINE [address] [place] [phone] Patito Wilhelm MD [address] [place] [address] [phone] Type 2 diabetes mellitus with both eyes [...] Description 05/07/2025 1:30 PM EST Office Visit [facility] MEDICINE [address] [place] [address] Patito Wilhelm MD [address] [place] [address] 05/10/2025 1:00 PM EST Medication Management [address] [address] Wilber Christie PharmD [address] [place] [address] 06/11/2025 11:00 AM EST Office Visit [address] [address] Scheduled Referrals Name Type Priority Associated Diagnoses [...] Component 6.1( 3:10 PM EDT) No Wilber Chirstie PharmD documented as of this encounter Procedures Procedure Name Priority Date/Time Associated Diagnosis Comments CT ABDOMEN PELVIS WO CONTRAST Routine 02/16/2025 10:03 AM EDT documented in this encounter Results * CT Abdomen Pelvis w/o Contrast (02/16/2025 10:03 AM EDT) Anatomical Region Laterality Modality Body, Pelvis, Abdomen Computed T omography 02/16/2025 10:0 3 AM EDT Narrative 02/18/2025 10:12 AM EST [address] [address] [address] Scan Report Signed Patient: Ameena Tejada MR#: [id number] 33 : 1965 Acct:[id number] Age/Sex: 59 / F ADM Date: 02/16/25 Loc: HO.CT Attending Dr: Marcell Saez MD Ordering Physician: Marcell Saez MD Date of Service: 02/16/25 Procedure(s): CT abdomen pelvis wo IV con Accession Number(s): [id number] cc: Marcell Saez MD; Patito Wilhelm MD Report Number: [id number]: Total DLP = 458.00 mGy-cm Reason for [...] 02/18/25 1009 DD/ 1003 TD/TT: 02/16/25 1018 Bottom Stop Attacher: Procedure Note Donotuseinterpreter, Image - 02/18/[address] [place] [address] [address] Scan Report Signed Patient: King Tejada#: [id number] 33 : 1965Acct:[id number] Age/Sex: 59 / FADM Date: 02/16/25 Loc: HO.CT Attending Dr: Marcell Saez MD Ordering Physician: Marcell Saez MD Date of Service: 02/16/25 Procedure(s): CT abdomen pelvis wo IV con Accession Number(s): [id number] cc: Marcell Saez MD; Patito Wilhelm MD Report Number: [id number]: Total DLP = 458.00 mGy-cm Reason for [...] by: Reyes Rueda MD 02/18/2025 10:09 AM [facility] Dictated By: Reyes Rueda MD Signed By: <Electronically signed by Reyes Rueda MD in OV> 02/18/25 1009 DD/ 1003 TD/TT: 02/16/25 1018 Bottom Stop Attacher: ALEXANDRA [facility] External Provider IMG CT PROCEDURES Edited [...] documented as of this encounter Care Teams Chainman Relationship Specialty Start Date End Date Patito Wilhelm MD [address] [place] [address] PCP - General Family Medicine 11/13/18 Wilber Christie, PharmD [address] [place] [address] Pharmacist Internal Medicine 01/28/23 documented as of this encounter
--- OUTSIDE RECORDS SUMMARY | 2025-04-09 14:53 | XMS_ITS | Encounter Summary ---
Author Organization [employer] Address [address] [facility] 7t [place] [address] Care Team Providers Care Ambulette Driver Name Role Phone Patito Wilhelm MD Primary Care Provider [phone] Wilber Christie PharmD Unavailable [phone] Reason for Visit * Reason Onset Date Comments Med Refill 02/07/2023 Encounter Details Date Type Department Care Team (Late st Contact Info) Description 02/07/2023 Telephone [facility] MEDICINE [address] [place] [address] Patito Wilhelm MD [address] [place], [place] [phone] Med Refill Social History Tobacco Use Types [...] 05/07/2025 1:30 PM EST Office Visit [address] [address] Patito Wilhelm MD [address] [place] [address] 05/10/2025 1:00 PM EST Medication Management [address] [address] Wilber Christie, PharmD [address] [place] [address] 06/11/2025 11:00 AM EST Office Visit [address] [address] documented as of this encounter Goals Goal [...] documented as of this encounter Care Teams Ambulette Driver Relationship Specialty Start Date End Date Patito Wilhelm MD [address] [place] [address] PCP - General Family Medicine 11/13/18 Wilber Christie, PennyD [address] [place] [address] Pharmacist Internal Medicine 01/28/23 documented as of this encounter
--- OUTSIDE RECORDS SUMMARY | 2025-04-09 14:53 | XMS_ITS | Clinical Summary ---
Author Organization [employer] Address [address] [place] [address] [address] [place] [address] Care Team Providers Care Tax Commissioner Name Role Phone Patito Givens MD Primary Care Provider [phone] Wilber Christie PharmD Unavailable [phone] Allergies Active Allergy Reactions Criticality Noted Date [...] with long-term current use of insulin ([facility]) Apply 1 Pad topically 2 times [...] with long-term current use of insulin ([facility]) Check blood glucose 3 times daily [...] with long-term current use of insulin ([facility]) INJECT 25 UNITS subcutaneously TWICE DAILY [...] arthroscopic surgery on 06/29/2024 - Following with [facility] orthopedic Burning sensation 11/27/2024 Assessment & Plan (11/27/2024 5:33 PM EDT): Neuropathy? C/w pregabaline as prescribed I will prescribe local lidocaine cream F/u with PCP Long-term current use of opiate analgesic 2024 Overview (10/09/2024): Medication: Percocet 5/325mg Q12H PRN Indication: lumbar radiculopathy, fibromyalgia Last COMMUNICATIONS DESIGNER Agreement: 07/06/24 COMMUNICATIONS DESIGNER visits Q3-4 months Assessment & Plan (03/16/2025 [...] Plan (02/08/2025 11:28 PM EDT): -Seen by custom motorcycle painter on 03/30/23 -Received lumbar facet block [...] Plan (10/29/2024 12:57 PM EDT): -Seen by custom motorcycle painter on 03/30/23 -Received lumbar facet block [...] Plan (12/12/2023 4:47 AM EDT): -Seen by custom motorcycle painter on 03/30/23 -Received lumbar facet block bilateral on 04/28/22 -Received DEE L5-S1 on 04/19/23 -Continue judicious use of oxycodone-APAP and pregabalin -Continue topical diclofenac Assessment & Plan (12/12/2023 4:55 AM EDT): >>ASSESSMENT AND PLAN FOR LUMBOSACRAL RADICULOPATHY WRITTEN ON 06/04/2023 5:53 AM BY PATITO GIVENS MD -Seen by custom motorcycle painter on 03/30/23 -Received lumbar facet block [...] PM EDT): - recommended to check with custom motorcycle painter if she can receive steroid injection Assessment & Plan (08/09/2022 5:26 AM EDT): - recommended to check with custom motorcycle painter if she can receive steroid injection Chronic interstitial cystitis 08/14/2012 Assessment & Plan (08/30/2023 2:38 PM EDT): -Followed by urologist [facility], last seen on 02/22/22 -Prescribed tamsulosin, no longer taking Assessment & Plan (04/02/2023 6:05 AM EST): -Followed by urologist [facility], last seen on 02/22/22 -Prescribed tamsulosin, no longer taking Assessment & Plan (05/14/2022 5:02 PM EST): -Followed by urologist [facility], last seen on 02/22/22 -Prescribed tamsulosin Chronic low back pain 08/14/2012 Assessment & Plan (02/08/2025 11:23 PM EDT): -Seen by custom motorcycle painter on 02/11/23 -Received lumbar facet block bilateral on 04/28/22 -Received DEE L5-S1 on 04/19/23 -Continue judicious use of oxycodone-APAP and pregabalin -Continue topical diclofenac -Continue following with custom motorcycle painter - Continue attending chronic pain group -Encouraged to continue PT Assessment & Plan (11/10/2024 6:27 AM EDT): -Seen by custom motorcycle painter on 02/11/23 -Received lumbar facet block bilateral on 04/28/22 -Received DEE L5-S1 on 04/19/23 -Continue judicious use of oxycodone-APAP and pregabalin -Continue topical diclofenac -Continue following with custom motorcycle painter - Continue attending chronic pain group -Encouraged to continue PT Assessment & Plan (12/12/2023 4:52 AM EDT): -Seen by custom motorcycle painter on 02/11/23 -Received lumbar facet block bilateral on 04/28/22 -Received DEE L5-S1 on 04/19/23 -Continue judicious use of oxycodone-APAP and pregabalin -Continue topical diclofenac -Continue following with custom motorcycle painter -Encouraged to continue PT Assessment & Plan (08/30/2023 2:41 PM EDT): -Seen by custom motorcycle painter on 02/11/23 -Received lumbar facet block bilateral on 04/28/22 -Received DEE L5-S1 on 04/19/23 -Continue judicious use of oxycodone-APAP and pregabalin -Continue topical diclofenac -Continue following with custom motorcycle painter -Encouraged to continue PT Assessment & Plan (06/04/2023 6:04 AM EST): -Seen by custom motorcycle painter on 02/11/23 -Received lumbar facet block bilateral on 04/28/22 -Received DEE L5-S1 on 04/19/23 -Continue judicious use of oxycodone-APAP and pregabalin -Continue topical diclofenac -Continue following with custom motorcycle painter -Encouraged to continue PT Assessment & Plan (04/02/2023 6:10 AM EST): -Seen by custom motorcycle painter on 02/11/23 -Received lumbar facet block bilateral on 04/28/22 -Scheduled for DEE L5-S1 soon -Continue judicious use of oxycodone-APAP and pregabalin -Continue topical diclofenac Assessment & Plan (01/10/2023 5:38 PM EDT): -Seen by custom motorcycle painter on 12/16/22, yet mainly for left knee pain -Received lumbar facet block bilateral on 04/28/22 -Continue judicious use of oxycodone-APAP and pregabalin -Continue topical diclofenac Assessment & Plan (12/26/2022 5:36 AM EDT): -Seen by custom motorcycle painter on 02/04/22. -Received lumbar facet block bilateral on 04/28/22 Assessment & Plan (05/14/2022 5:00 PM EST): -Seen by custom motorcycle painter on 02/04/22. -Received lumbar facet block bilateral on 04/28/22 Hypertension 11/25/2011 Assessment & Plan (02/18/2025 7:16 AM EST): -Goal BP < 130/80 per ACC/AHA guideline (Treatment threshold >= 130/80 ) -History of questionable medication adherence -In a setting of chronic pain -Co-managed with pharmacist, copy room technician, and project management analyst -s/p 24-hour BP monitoring by nephrology; recommended sleep study and increased metoprolol -Continue checking home BP -Continue working on lifestyle modification -Continue metoprolol succinate 75 mg daily -Continue Valsartan to 320mg daily -Treatment Hx: lisinpril was discontinued due to cough;Losartan was self- discontinued due to dry mouth; amlodipine was self-discontinued due to dry mouth; metoprolol was increased by project management analyst from 50 mg to 75 mg. Recently BP has been stable, so Critical Care Physician Assistant tapered Metoprolol down to 25 mg, but pt started to have palpitations and self increased back to 50 mg. Assessment & Plan (10/29/2024 12:56 PM EDT): -Goal BP < 140/90 per JNC-8 and < 130/80 per ACC/AHA guideline (Treatment threshold >= 130/80 ) -History of questionable medication adherence -In a setting of chronic pain -Co-managed with pharmacist, copy room technician, and project management analyst -s/p 24-hour BP monitoring by nephrology; recommended sleep study and increased metoprolol -Continue checking home BP -Continue working on lifestyle modification -Continue metoprolol succinate 75 mg daily -Continue Valsartan to 320mg daily -Treatment Hx: lisinpril was discontinued due to cough;Losartan was self- discontinued due to dry mouth; amlodipine was self-discontinued due to dry mouth; metoprolol was increased by project management analyst from 50 mg to 75 mg. Recently BP has been stable, so Critical Care Physician Assistant tapered Metoprolol down to 25 mg, but pt started to have palpitations and self increased back to 50 mg. Assessment & Plan (03/27/2024 3:57 PM EST): -Goal BP < 140/90 per JNC-8 and < 130/80 per ACC/AHA guideline (Treatment threshold >= 130/80 ) -History of questionable medication adherence -In a setting of chronic pain -Co-managed with pharmacist, copy room technician, and project management analyst -s/p 24-hour BP monitoring by nephrology; recommended sleep study and increased metoprolol -Continue checking home BP -Continue working on lifestyle modification -Continue metoprolol succinate 75 mg daily -Continue Valsartan to 320mg daily -Treatment Hx: lisinpril was discontinued due to cough;Losartan was self- discontinued due to dry mouth; amlodipine was self-discontinued due to dry mouth; metoprolol was increased by project management analyst from 50 mg to 75 mg. Recently BP has been stable, so Critical Care Physician Assistant tapered Metoprolol down to 25 mg, but pt started to have palpitations and self increased back to 50 mg. Assessment & Plan (12/12/2023 4:46 AM EDT): -Goal BP < 140/90 per JNC-8 and < 130/80 per ACC/AHA guideline (Treatment threshold >= 130/80 ) -History of questionable medication adherence -In a setting of chronic pain -Co-managed with pharmacist, copy room technician, and project management analyst -s/p 24-hour BP monitoring by nephrology; recommended sleep study and increased metoprolol -Continue checking home BP -Continue working on lifestyle modification -Continue metoprolol succinate 75 mg daily -Continue Valsartan to 320mg daily -Treatment Hx: lisinpril was discontinued due to cough;Losartan was self- discontinued due to dry mouth; amlodipine was self-discontinued due to dry mouth; metoprolol was increased by project management analyst from 50 mg to 75 mg Assessment & Plan (08/30/2023 2:37 PM EDT): -Goal BP < 140/90 per JNC-8 and < 130/80 per ACC/AHA guideline (Treatment threshold >= 130/80 ) -Questionable medication adherence -Co-managed with pharmacist and copy room technician -Continue checking home BP -Continue working on [...] -Questionable medication adherence -Co-managed with pharmacist and copy room technician -Continue checking home BP -Continue working on [...] -Questionable medication adherence -Co-managed with pharmacist and copy room technician -Continue checking home BP -Continue working on [...] Plan (02/08/2025 11:28 PM EDT): -Followed by [facility] pulmonology, last seen on 10/10/2024, -Currently [...] Plan (11/10/2024 6:30 AM EDT): -Followed by [facility] pulmonology, last seen on 10/10/2024, -Currently [...] Plan (03/27/2024 3:55 PM EST): -Followed by [facility] pulmonology, last seen on 03/28/23, switched mometasone / formoterol (Dulera) to budesonide / formoterol (Symbicort) -Questionable adherence to medications according to refill history, she is unaware of budesonide / formoterol (Symbicort) prescription -Reviewed her medications today and discussed about the importance of adherence; Advised to cloth picker her budesonide / formoterol (Symbicort) and get her lab done prior to next appointment with optical fabrication technician -Currently prescribed budesonide / formoterol (Symbicort) and tiotropium (Spiriva) as maintenance -Continue albuterol HFA prn as rescue -Treatment Hx: Previously on fluticasone (Flovent), which was changed to mometasone / formoterol (Dulera). Mometasone / formoterol (Dulera) was changed to budesonide / formoterol (Symbicort) most recently -Reviewed the importance of medication adherence and recommended to contact pharmacist and optical fabrication technician for clarification of currently prescribed inhalers. Assessment & Plan (12/06/2023 1:45 PM EDT): -Followed by [facility] pulmonology, last seen on 03/28/23, switched mometasone / formoterol (Dulera) to budesonide / formoterol (Symbicort) -Questionable adherence to medications according to refill history, she is unaware of budesonide / formoterol (Symbicort) prescription -Reviewed her medications today and discussed about the importance of adherence; Advised to cloth picker her budesonide / formoterol (Symbicort) and get her lab done prior to next appointment with optical fabrication technician -Currently prescribed budesonide / formoterol (Symbicort) and tiotropium (Spiriva) as maintenance -Continue albuterol HFA prn as rescue -Treatment Hx: Previously on fluticasone (Flovent), which was changed to mometasone / formoterol (Dulera). Mometasone / formoterol (Dulera) was changed to budesonide / formoterol (Symbicort) most recently -Reviewed the importance of medication adherence and recommended to contact pharmacist and optical fabrication technician for clarification of currently prescribed inhalers. Assessment & Plan (08/30/2023 2:37 PM EDT): -Followed by [facility] pulmonology, last seen on 03/28/23, switched mometasone / formoterol (Dulera) to budesonide / formoterol (Symbicort) -Questionable adherence to medications according to refill history, she is unaware of budesonide / formoterol (Symbicort) prescription -Reviewed her medications today and discussed about the importance of adherence; Advised to cloth picker her budesonide / formoterol (Symbicort) and get her lab done prior to next appointment with optical fabrication technician -Currently prescribed budesonide / formoterol (Symbicort) and tiotropium (Spiriva) as maintenance -Continue albuterol HFA prn as rescue -Treatment Hx: Previously on fluticasone (Flovent), which was changed to mometasone / formoterol (Dulera). Mometasone / formoterol (Dulera) was changed to budesonide / formoterol (Symbicort) most recently -Reviewed the importance of medication adherence and recommended to contact pharmacist and optical fabrication technician for clarification of currently prescribed inhalers. Assessment & Plan (06/04/2023 5:58 AM EST): -Followed by [facility] pulmonology, last seen on 03/28/23, switched mometasone / formoterol (Dulera) to budesonide / formoterol (Symbicort) -Questionable adherence to medications according to refill history, she is unaware of budesonide / formoterol (Symbicort) prescription -Reviewed her medications today and discussed about the importance of adherence; Advised to cloth picker her budesonide / formoterol (Symbicort) and get her lab done prior to next appointment with optical fabrication technician -Currently prescribed budesonide / formoterol (Symbicort) and tiotropium (Spiriva) as maintenance -Continue albuterol HFA prn as rescue -Treatment Hx: Previously on fluticasone (Flovent), which was changed to mometasone / formoterol (Dulera). Mometasone / formoterol (Dulera) was changed to budesonide / formoterol (Symbicort) most recently -Reviewed the importance of medication adherence and recommended to contact pharmacist and optical fabrication technician for clarification of currently prescribed inhalers. Assessment & Plan (04/02/2023 5:57 AM EST): -Followed by [facility] pulmonology, last seen on 11/30/21 -Questionable adherence to medications according to refill history -Reviewed her medications today and discussed about the importance of adherence -Continue mometasone / formoterol (Dulera) and tiotropium (Spiriva) as maintenance -Continue albuterol HFA prn as rescue -Urged to schedule appt with optical fabrication technician; pt verbalized understanding Assessment & Plan (01/10/2023 2:06 PM EDT): -Followed by [facility] pulmonology, last seen on 11/30/21 -Questionable adherence to medications according to refill history -Reviewed her medications today and discussed about the importance of adherence -Continue Dulera and Spiriva as maintenance -Continue albuterol HFA prn as rescue -Consider referring to MTM -Urged to schedule appt with optical fabrication technician; pt verbalized understanding Assessment & Plan (12/26/2022 5:30 AM EDT): -Followed by [facility] pulmonology, last seen on 11/30/21 -Questionable adherence to medications according to refill history -Reviewed her medications today and discussed about the importance of adherence -Continue Dulera and Spiriva as maintenance -Continue albuterol HFA prn as rescue -Consider referring to MTM -Urged to schedule appt with optical fabrication technician; pt verbalized understanding Assessment & Plan (08/09/2022 5:23 AM EDT): -Followed by [facility] pulmonology, last seen on 11/30/21 -Reviewed her medications today and discussed about the importance of adherence -Continue Dulera and Spiriva as maintenance - Continue albuterol HFA prn as rescue -Consider referring to MTM Assessment & Plan (05/14/2022 4:42 PM EST): -Followed by [facility] pulmonology, last seen on 11/30/21 -Mild wheezing today -Pt is being prescribed Dulera and Spiriva as maintanance, but patient is uncertain and medication refill history suggests questionable adherence. -Consider referring to [facility] Type 2 diabetes mellitus 09/20/2011 [...] active Hep C. -Check the satus of iXpert Rachael -Last eye exam: 05/14/21 at [facility] eye care, no retinopathy -Last foot exam: 10/20/21 -Last microalbumin test: 10/20/21 UACR 12 Last lipid profile: 10/20/21 TC 197; 142; HDL 64; LDL 108. Last dental exam: Immunizations: up to date Knee pain 09/20/2011 Assessment & Plan (06/02/2023 9:41 AM EST): - Following with [facility] Chemical Compounder Helper, last seen in Jan 2023 - XR on 12/16/22 showed : mild Osteoarthritis - Received intraarticular Euflexxa (hyaluronate derivative) Injection x 3 doses in 2022 - Continue current Tx plan per custom motorcycle painter Assessment & Plan (04/02/2023 6:14 AM EST): - Following with [facility] Chemical Compounder Helper, last seen in Jan 2023 - XR on 12/16/22 showed : mild Osteoarthritis - Received intraarticular Euflexxa (hyaluronate derivative) Injection x 3 doses in 2022 - Continue current Tx plan per custom motorcycle painter Assessment & Plan (01/10/2023 5:41 PM EDT): - Following with [facility] Chemical Compounder Helper, last seen on 12/16/22, started on Euflexxa injection - XR on 12/16/22 showed : mild Osteoarthritis - Currently receiving intraarticular Euflexxa (hyaluronate derivative) Injection - Continue current Tx plan per custom motorcycle painter Resolved Problems Problem Noted Date Diagnosed [...] organization. Date Type Department Care Team Description 04/09/2025 11:00 AM EST Office Visit [facility] MEDICINE [address] [place] [phone] Kori Carrillo FNP Arrived 04/02/2025 Orders Only [address] [address] Patito Givens MD 04/01/2025 Refill [facility]S [address] [place], [place] [phone] Tosha Phillips, flask fitter back pain, unspecified back location, unspecified back pain laterality 04/01/2025 Telephone [facility] MEDICINE [address] [place] [phone] Patito Givens MD Med Refill 03/26/2025 Telephone [facility] MEDICINE [address] [place] [phone] Patito Givens MD Durable Medical Equipment (DME: [facility] DME Request 10 in one ) 03/22/2025 Results Follow-Up [facility] WALK-IN CENTER [address] [place] [phone] Christianne Strickland FNP MR Brain w/o Contrast 03/19/[address] [address] Patito Givens MD Medication Question 03/12/2025 11:00 AM EST Office Visit [address] [address] Kori Carrillo, ASSISTANT SHIFT SUPERVISOR Lumbosacral radiculopathy (Primary Dx); Long-term current use of opiate analgesic 03/12/2025 Travel 03/05/2025 Orders Only GENERIC EXTERNAL DATA DEPARTMENT Provider, Generic External Data 03/04/2025 Orders Only [address] [address] Patito Givens MD 03/04/2025 Refill [facility] [address] [place] [address] Tosha Phillips RN Chronic back pain, unspecified back location, unspecified back pain laterality 03/04/[address] [phone] Patito Givens MD Med Refill 03/04/[address] [address] Patito Givens MD Call Back Request 02/22/2025 3:00 PM EST Office Visit [facility] WALK-IN CENTER [address] [place] [phone] Christianne Strickland, ASSISTANT SHIFT SUPERVISOR Dizziness; BPPV (benign paroxysmal positional vertigo), unspecified laterality 02/22/2025 Telephone [facility] WALK-IN CENTER [address] [place] [phone] Patito Givens MD Nurse Triage 02/22/2025 Travel 02/05/2025 Refill [facility] MED & PEDS [address] [place] [address] Tosha Phillips, flask fitter back pain, unspecified back location, unspecified back pain laterality 02/05/[address] [address] Patito Givens MD Med Refill 02/04/2025 3:00 PM EDT Office Visit [address] [phone] Patito Givens MD Primary hypertension (Primary Dx); [...] of other site 02/04/2025 Travel 02/01/2025 Telephone [facility] MEDICINE [address] [place] [address] [phone] Patito Givens MD chart prep 01/26/2025 Refill [facility] MEDICINE [address] [place], [place] [phone] Patito Givens MD 01/24/2025 Orders Only [address] [phone] Patito Givens MD Type 2 diabetes mellitus with both eyes affected by mild nonproliferative retinopathy without macular edema, with long-term current use of insulin (HCC) (Primary Dx); Primary hypertension; Moderate persistent asthma without complication 01/23/2025 Travel from Last 3 Months Immunizations Immunization [...] Description 05/07/2025 1:30 PM EST Office Visit [facility] MEDICINE [address] [place] [phone] Patito Givens MD [address] [place] [phone] 05/10/2025 1:00 PM EST Medication Management [address] [address] Wilber Christie, PharmD [address] [place] [phone] 06/11/2025 11:00 AM EST Office Visit [address] [address] Health Maintenance Due Date Last Done Comments [...] 10/29/2025 10/29/2024 Tobacco Screening 02/24/2026 02/24/2025 Mammogram 04/02/2027 04/02/2025, 03/18, 03/22/2023, Additional history exists DTaP/Tdap/Td Vaccines (3 - [...] Plan [facility] Weekly [facility] pressure task Care Plan Weekly blood pressure task [facility] Patient has chronic kidney disease Care Plan Patient has chronic kidney disease [facility] Patient has chronic kidney disease Care Plan Patient has chronic kidney disease [facility] Weekly blood pressure task Care [...] Care Plan Weekly blood pressure task No Marco AChristianne alberts [facility] Patient has chronic kidney disease Care Plan Patient has chronic kidney disease No Christianne Strickland FNP Patient has chronic kidney disease Care Plan Patient has chronic kidney disease No Christianne Strickland FNP Weekly blood pressure [...] TOMOSYNTHESIS BILATERAL Routine 04/02/2025 1:24 PM EST MR BRAIN WO CONTRAST Urgent 03/20/2025 7:32 PM EST Dizziness POCT VINICIO-14 URINE DRUG SCREEN Routine 03/12/2025 11:49 AM EST Lumbosacral radiculopathy Long-term current use of opiate analgesic GLUCOSE, WHOLE BLOOD Routine 03/05/2025 12:00 PM EST POCT GLUCOSE (CPT-13987) Routine 02/22/2025 3:[address] ABDOMEN PELVIS WO CONTRAST Routine 02/16/2025 10:03 AM EDT POCT GLYCATED HEMOGLOBIN, TOTAL Routine 02/04/2025 3:10 PM EDT Type 2 diabetes mellitus with both eyes affected by mild nonproliferative retinopathy without macular edema, with long-term current use of insulin (HCC) POCT GLUCOSE (CPT-68529) Routine 02/04/2025 3:09 PM EDT Type 2 diabetes mellitus with both eyes affected by mild nonproliferative retinopathy without macular edema, with long-term current use of insulin (HCC) LIPID PANEL, STANDARD Routine 07/06/2024 11:02 AM EDT HM COLONOSCOPY Routine 10/19/2023 ALBUMIN, RANDOM URINE W/CREATININE Routine 12/09/2022 1:02 PM EDT Type 2 diabetes mellitus with diabetic polyneuropathy, with long-term current use of insulin (CMS/HCC) from Last 3 Months or Most Recently Relevant to Health Maintenance Results * BI Mammogram Screening Tomosynthesis Bilateral (04/02/2025 1:24 PM EST) Anatomical Region Laterality Modality Breast Bilateral Mammography 04/02/2025 1:24 PM EST Narrative 04/08/2025 1:26 PM EST [facility] [address] [place] [address] Mammography Report Signed Patient: Ameena Tejada MR#: [id number] 33 : 1965 Acct:[id number] Age/Sex: 60 / F ADM Date: 04/02/25 Loc: [facility] Attending Dr: Patito Givens MD Ordering Physician: Patito Givens MD Results: 2Benign Date of Service: 04/02/25 Follow Up: 1 Year From [facility] Mammogram Procedure(s): MM tomosynthesis screening BI Accession Number(s): [id number] cc: Patito Givens MD Reason For Exam: SCREENING EXAMINATION: MM [...] 04/08/25 1323 DD/ 1324 TD/TT: 04/02/25 1330 Engineering Equipment Operator: Procedure Note Donotuseinterpreter, Image - 04/08/20[facility] [address] [place] [address] Mammography Report Signed Patient: King Tejada#: [id number] 33 : 1965Acct:[id number] Age/Sex: 60 / FADM Date: 04/02/25 Loc: .MAMMO Attending Dr: Patito Givens MD Ordering Physician: Patito Givens MDResults: 2Benign Date of Service: 04/02/25Follow Up: 1 Year From [facility] Mammogram Procedure(s): MM tomosynthesis screening BI Accession Number(s): [id number] cc: Patito Givens MD Reason For Exam: SCREENING EXAMINATION: MM [...] 04/08/25 1323 DD/ 1324 TD/TT: 04/02/25 1330 Engineering Equipment Operator: us Patito Givens MD IM BI PROCEDURES Edited Result - Final * MR Brain w/o Contrast (03/20/2025 7:32 PM EST) Anatomical Region Laterality Modality Brain Magnetic Resonan ce 03/20/2025 7:32 PM EST Narrative 03/20/2025 7:33 PM EST [place] [address] Magnetic Resonance Report Signed Patient: Ameena Tejada MR#: [id number] 33 : 1965 Acct:[id number] Age/Sex: 60 / F ADM Date: 03/20/25 Loc: HO.MRI Attending Dr: Christianne Strickland [facility] Ordering Physician: Christianne Strickland ASSISTANT SHIFT SUPERVISOR Date of Service: 03/20/25 Procedure(s): MR head/brain wo con Accession Number(s): [id number] cc: Patito Givens MD; Christianne Strickland [facility] Reason for Exam: 59 y.o F [...] in OV> 03/20/251931 DD/ 31 TD/TT: 03/20/251931 Engineering Equipment Operator: Procedure Note Donotuseinterpreter, Image - 03/20/[address] [address] Magnetic Resonance Report Signed Patient: King Tejada#: [id number] 33 : 1965Acct:[id number] Age/Sex: 60 / FADM Date: 03/20/25 Loc: HO.MRI Attending Dr: [facility] Date of Service: 03/20/25 Procedure(s): MR head/brain wo [facility] Accession Number(s): [id number] cc: Patito Givens MD; [facility] Reason for Exam: 59 y.o F with [...] in OV> 03/20/251931 DD/ 31 TD/TT: 03/20/251931 Engineering Equipment Operator: [facility] IMG MRI PROCEDURES Edited Res ult [...] - 03/12/2025 11:49 AM EST .UTOX cup Lot#[id number] Exp. 03/18/26 Internal Pass Control Patito Givens MD POINT OF CARE TEST ENTER/EDIT OR DERABLES Final Result * (ABNORMAL) Glucose, Whole Blood (03/05/2025 12:00 PM EST) Glucose, Whole Blood 132(H) 60 - 115 mg/dL [facility] Comment:METER #: [id number] 03/05/2025 12:0 0 PM EST 03/05/2025 12:04 PM EST Generic External Data Provider LAB BLOOD ORDERAB LES Final Result [facility] [address] [place] [phone] * POCT Glucose (02/22/2025 3:13 PM EST) Only the most recent of2 resultswithin the time period is included. Glucose Blood, POC 197 60 - 200 mg/dL Blood Capillary blood specimen / Unknown 02/22/2025 3:13 PM EST us Christianne Marco A ASSISTANT SHIFT SUPERVISOR POINT OF CARE TEST ENTER/EDIT ORDERABLES Final Result * CT Abdomen Pelvis w/o Contrast (02/16/2025 10:03 AM EDT) Anatomical Region Laterality Modality Body, Pelvis, Abdomen Computed T omography 02/16/2025 10:0 3 AM EDT Narrative 02/18/2025 10:12 [address] [place] [address] [address] Scan Report Signed Patient: Ameena Tejada MR#: [id number] 33 : 1965 Acct:[id number] Age/Sex: 59 / F ADM Date: 02/16/25 Loc: HO.CT Attending Dr: Marcell Saez MD Ordering Physician: Marcell Saez MD Date of Service: 02/16/25 Procedure(s): CT abdomen pelvis wo IV con Accession Number(s): [id number] cc: Marcell Saez MD; Patito Givens MD Report Number: [id number]: Total DLP = 458.00 mGy-cm Reason for [...] by: Reyes Rueda MD 02/18/2025 10:09 AM [facility] Dictated By: Reyes Rueda MD Signed By: <Electronically signed by Reyes Rueda MD in OV> 02/18/25 1009 DD/ 1003 TD/TT: 02/16/25 1018 Engineering Equipment Operator: ALEXANDRA Procedure Note Donotuseinterpreter, Image - 02/18/[address] [place] [address] [address] Scan Report Signed Patient: King Tejada#: [id number] 33 : 1965Acct:[id number] Age/Sex: 59 / FADM Date: 02/16/25 Loc: HO.CT Attending Dr: Marcell Saez MD Ordering Physician: Marcell Saez MD Date of Service: 02/16/25 Procedure(s): CT abdomen pelvis wo IV con Accession Number(s): [id number] cc: Marcell Saez MD; Patito Givens MD Report Number: [id number]: Total DLP = 458.00 mGy-cm Reason for [...] by: Reyes Rueda MD 02/18/2025 10:09 AM [facility] Dictated By: Reyes Rueda MD Signed By: <Electronically signed by Reyes Rueda MD in OV> 02/18/25 1009 DD/ 1003 TD/TT: 02/16/25 1018 Engineering Equipment Operator: ALEXANDRA [facility] External Provider IMG CT PROCEDURES Edited Result - Final * (ABNORMAL) POCT Hgb A1c (02/04/2025 3:10 PM EDT) Hemoglobin A1C 6.1(A) 4.0 - 5.7 % QC Media Lot # [id number] Lot# Expiration Date ,472,070 Blood 02/04/2025 3:10 PM EDT Patito Givens MD POINT OF CARE TEST ENTER/EDIT OR DERABLES Final Result * (ABNORMAL) Lipid Panel, Standard (07/06/2024 11:02 AM EDT) Triglycerides 143 <150 mg/dL [facility] Comment:Desirable Triglyceri de: less than 150 mg/dLBorderline High Triglyceride 150-199 mg/dLHigh Triglyceride: 200-499 mg/dLVery High Triglyceride: greater than or equal to 5OO mg/dL Cholesterol 171 <200 mg/dL [facility] Comment:Desirable Cholestero l: less than 200 mg/dLBorderline High Cholesterol: 200-239 mg/dLHigh Cholesterol: greater than 239 mg/dL LDL Cholesterol Calculated 100(H) <100 mg/dL [facility] Comment:Desirable LDL: less than 100 mg/dLNear Optimal/Above Optimal LDL: 110- 129 mg/dLBorderline High LDL: 130-159 mg/dLHigh LDL: 160-189 mg/dLVery High LDL: greater than or equal to 190 mg/dL HDL Cholesterol 43 >40 mg/dL [facility] Comment:Desirable HDL: great er than 40 mg/dL Note: This HDL assay may give artificially low results in patients with liver disease. 07/06/2024 11:0 2 AM EDT 07/06/2024 1:13 PM EDT us Patito Givens MD LAB BLOOD ORDERABLES Final Resul t Performing Organization Address [facility]/ZIP Co de Phone Number [facility] [address] [place] [address] [phone] * Hm Colonoscopy (10/19/2023) Colonoscopy Normal Normal Narrative AshleyChristine ag - 10/19/2023 Recommended 10 year follow up . see external hospital admission note on 10/19/2023 us Natty Provider HEALTH MAINTENANCE Final Result * Albumin, Random Urine W/Creatinine (12/09/2022 1:02 PM EDT) Creatinine, Urine 170.12 mg/dL [facility] Microalbumin Urine 15.0 mg/L [facility] Microalbum Creatinine Ratio Ur 8.8 <30 ug/mg cr [facility] Comment:Albumin/Creatinine R atio Reference Ranges: Normal: < 30 ug/mg creatinine Microalbuminuria: 30 - 300 ug/mg creatinineClinical Albuminuria: > 300 ug/mg creatinine Urine 12/09/2022 1:02 PM EDT 12/09/2022 3:56 PM EDT Patito Givens MD LAB URINE ORDERABLES Final Resul t Performing Organization Address [facility] Co de Phone Number [facility] [address] [place] [phone] from Last 3 Months or Most [...] Patient has chronic kidney disease 04/01/2025 Insurance [facility] < 65 [place]SE [place] [id number] Care Teams Tax Commissioner Relationship Specialty Start Date End Date Patito Givens MD [address] [place] [address] PCP - General Family Medicine 11/13/18 Wilber Christie, PennyD [address] [place] [address] Pharmacist Internal Medicine 01/28/23
--- OUTSIDE RECORDS SUMMARY | 2025-04-09 14:53 | XMS_ITS | Encounter Summary ---
Author Organization [employer] Address [address] [facility] 7t [place] [address] Care Team Providers Care Extrusion Press Adjuster Name Role Phone Patito Wilhelm MD Primary Care Provider [phone] Wilber Christie PharmD Unavailable [phone] Reason for Visit * Reason Onset Date Comments Med Refill 04/01/2025 Encounter Details Date Type Department Care Team (Late st Contact Info) Description 04/01/2025 Telephone [facility] [address] [place] [address] Patito Wilhelm MD [address] [place] [address] Med Refill Social History Tobacco Use Types [...] MG tablet To be sent to: - [facility]/pharmacy #[id number] documented in this encounter Plan of Treatment Upcoming Encounters Date Type Department Care Team (Late st Contact Info) Description 05/07/2025 1:30 PM EST Office Visit [facility] [address] [place] [address] Patito Wlihelm MD [address] [place] [address] 05/10/2025 1:00 PM EST Medication Management [facility] [address] [place] [address] Wilber Christie, PharmD [address] [place] [phone] 06/11/2025 11:00 AM EST Office Visit [facility] [address] [place] [address] documented as of this encounter Goals Goal [...] Plan Weekly blood pressure [facility] blood pressure task Care Plan Weekly blood pressure task No Keysha Goldsmith [facility] Patient has chronic kidney disease Care Plan Patient has chronic kidney disease No [facility] Patient has chronic kidney disease Care Plan Patient has chronic kidney disease No Keysha Goldsmith [facility] Weekly blood pressure task Care Plan Weekly [...] Care Plan Weekly blood pressure task No StandishChristianne [facility] Weekly blood pressure task Care Plan Weekly blood pressure task No Standish Christianne [facility] Patient has chronic kidney disease Care Plan Patient has chronic kidney disease No StandishChristianne [facility] Patient has chronic kidney disease Care Plan Patient has chronic kidney disease No StandishChristianne [facility] Weekly blood pressure task Care Plan [...] documented as of this encounter Care Teams Extrusion Press Adjuster Relationship Specialty Start Date End Date Patito Wilhelm MD [address] [place] [address] PCP - General Family Medicine 11/13/18 Wilber Christie, PennyD [address] [place] [address] Pharmacist Internal Medicine 01/28/23 documented as of this encounter
--- OUTSIDE RECORDS SUMMARY | 2025-04-09 14:53 | XMS_ITS | Encounter Summary ---
Author Organization [employer] Address [address] [facility] 7t [place] [address] Care Team Providers Care Windows Laptop Technician Name Role Phone Patito Wilhelm MD Primary Care Provider [phone] Wilber Christie PharmD Unavailable [phone] Reason for Visit * Reason Onset Date Comments Med Refill 04/06/2023 Encounter Details Date Type Department Care Team (Late st Contact Info) Description 04/06/2023 Telephone [facility] [address] [place] [address] Patito Wilhelm MD [address] [place], [place] [phone] Med Refill Social History Tobacco Use Types [...] (Percocet) 5-325 MG tablet Please sent to [facility]/pharmacy #[id number] [place], [place] - [address] [place] [address] documented in this encounter Plan of Treatment Upcoming Encounters Date Type Department Care Team (Late st Contact Info) Description 05/07/2025 1:30 PM EST Office Visit [facility] [address] [place] [address] Patito Wilhelm MD [address] [place] [phone] 05/10/2025 1:00 PM EST Medication Management [address] [address] Wilber Christie, PharmD [address] [place] [address] 06/11/2025 11:00 AM EST Office Visit [address] [address] documented as of this encounter Goals Goal [...] documented as of this encounter Care Teams Windows Laptop Technician Relationship Specialty Start Date End Date Patito Wilhelm MD [address] [place] [address] PCP - General Family Medicine 11/13/18 Wilber Christie, PharmD [address] [place] [address] Pharmacist Internal Medicine 01/28/23 documented as of this encounter
--- OUTSIDE RECORDS SUMMARY | 2025-04-09 14:53 | XMS_ITS | Encounter Summary ---
Author Organization [employer] Address 75 [facility] 7t [place] [address] Care Team Providers Care Hide Mill Man Name Role Phone Patito Wilhelm MD Primary Care Provider [phone] Wilber Christie PharmD Unavailable [phone] Reason for Visit * Reason Onset Date Comments Med Refill 03/08/2023 Encounter Details Date Type Department Care Team (Late st Contact Info) Description 03/08/2023 Telephone [facility] [address] [place] [address] Patito Wilhelm MD [address] [place], [place] [phone] Med Refill Social History Tobacco Use Types [...] (Percocet) 5-325 MG tablet Please sent to [facility]/pharmacy #[id number] [place], [place] - [address] [place] [address] documented in this encounter Plan of Treatment Upcoming Encounters Date Type Department Care Team (Late st Contact Info) Description 05/07/2025 1:30 PM EST Office Visit [facility] [address] [place] [address] Patito Wilhelm MD [address] [place] [address] 05/10/2025 1:00 PM EST Medication Management [address] [address] Wilber Christie, PharmD [address] [place] [address] 06/11/2025 11:00 AM EST Office Visit [address] [address] documented as of this encounter Goals Goal [...] of this encounter Care Teams Hide Mill Man Relationship Specialty Start Date End Date Patito Wilhelm MD [address] [place] [address] PCP - General Family Medicine 11/13/18 Wilber Christie, PharmD [address] [place] [address] Pharmacist Internal Medicine 01/28/23 documented as of this encounter
--- OUTSIDE RECORDS SUMMARY | 2025-04-09 14:53 | XMS_ITS | Encounter Summary ---
Author Organization [employer] Address 75 [facility] 7t [place] [address] Care Team Providers Care Fretted Instruments Inspector Name Role Phone Patito Wilhelm MD Primary Care Provider [phone] Wilber Christie PharmD Unavailable [phone] Reason for Visit * Reason Onset Date Comments Medication Question 06/09/2023 Encounter Details Date Type Department Care Team ([facility] st Contact Info) Description 06/09/2023 Telephone [facility] 230 [place], [place] [phone] Patito Wilhelm MD 230 [place], [place] [phone] Medication Question Social History Tobacco Use Types [...] If any questions please contact pt at [phone]. documented in this encounter Plan of Treatment Upcoming Encounters Date Type Department Care Team (Late st Contact Info) Description 05/07/2025 1:30 PM EST Office Visit [facility] [address] [place] [phone] Patito Wilhelm MD [address] [place] [address] 05/10/2025 1:00 PM EST Medication Management [facility] [address] [place] [phone] Wilber Christie, PharmD [address] [place] [phone] 06/11/2025 11:00 AM EST Office Visit [address] [address] documented as of this encounter Goals Goal [...] documented as of this encounter Care Teams Fretted Instruments Inspector Relationship Specialty Start Date End Date Patito Wilhelm MD [address] [place] [address] PCP - General Family Medicine 11/13/18 Wilber Christie, PharmD [address] [place] [address] Pharmacist Internal Medicine 01/28/23 documented as of this encounter
--- OUTSIDE RECORDS SUMMARY | 2025-04-09 14:53 | XMS_ITS | Encounter Summary ---
Author Organization [employer] Address [address] [place] [address] 7 [place] [address] Care Team Providers Care Protection Agent Name Role Phone Patito Wilhelm MD Primary Care Provider [phone] Wilber Christie PharmD Unavailable [phone] Reason for Referral * Consultation (Routine) - Closed Specialty Diagnoses / Procedures Referred By [place] t Referred To Contact Pharmacy Diagnoses Primary hypertension Type 2 diabetes mellitus with both eyes affected by mild nonproliferative retinopathy without macular edema, with long-term current use of insulin (HCC) Patito Wilhelm MD [address] [place] [address] Phone: tel: fax: Referral ID Status Reason Start Date Expiration Date V isits Requested Visits Authorized [id number] Closed Consult and Treat 02/09/2024 02/08/2025 6 6 Encounter Details Date Type Department Care Team (Late st Contact Info) Description 02/09/2024 Orders Only [facility] [address] [place] [address] Patito Wilhelm MD [address] [place], [place] [phone] Primary hypertension (Primary Dx); Type 2 diabetes mellitus with both eyes affected by mild nonproliferative retinopathy without macular edema, with long-term current use of insulin ([facility]/HCC) Social History Tobacco Use Types Packs/Day [...] Description 05/07/2025 1:30 PM EST Office Visit [facility] [address] [place] [address] Patito Wilhelm MD [address] [place] [address] 05/10/2025 1:00 PM EST Medication Management [facility] [address] [place] [address] Wilber Christie PharmD [address] [place] [address] 06/11/2025 11:00 AM EST Office Visit [facility] [address] [place] [phone] Scheduled Referrals Name Type Priority Associated Diagnoses Orde r Schedule Referral to Pharmacy CDTM Outpatient Referral Routine Primary hypertension Type 2 diabetes mellitus with both eyes affected by mild nonproliferative retinopathy without macular edema, with long-term current use of insulin ([facility]) Ordered: 02/09/2024 documented as of this [...] use of insulin ([facility]) documented in this encounter Additional Health Concerns Assessment Noted Time PHQ-9 Depression Total Score: 11 024 1:39 PM EDT documented as of this encounter Care Teams Protection Agent Relationship Specialty Start Date End Date Patito Wilhelm MD [address] [place] [address] PCP - General Family Medicine 11/13/18 Wilber Christie PharmD [address] [place] [address] Pharmacist Internal Medicine 01/28/23 documented as of this encounter
--- OUTSIDE RECORDS SUMMARY | 2025-04-09 14:53 | XMS_ITS | Encounter Summary ---
Author Organization [employer] Address 75 [facility] 7t [place] [address] Care Team Providers Care Accounting Clerks Supervisor Name Role Phone Patito Wilhelm MD Primary Care Provider [phone] Wilber Christie PharmD Unavailable [phone] Reason for Visit * Reason Comments Med Refill Encounter Details Date Type Department Care Team (Late st Contact Info) Description 01/26/2025 Refill [facility] [address] [place] [address] Patito Wilhelm MD [address] [place] [address] Social History Tobacco Use Types Packs/Day Years [...] Description 05/07/2025 1:30 PM EST Office Visit [address] [address] Patito Wilhelm MD [address] [place] [address] 05/10/2025 1:00 PM EST Medication Management [address] [address] Wilber Christie PharmD [address] [place] [address] 06/11/2025 11:00 AM EST Office Visit [address] [address] documented as of this encounter Goals Goal [...] documented as of this encounter Care Teams Accounting Clerks Supervisor Relationship Specialty Start Date End Date Patito Wilhelm MD [address] [place] [address] PCP - General Family Medicine 11/13/18 Wilber Christie, Kaia [address] [place] [address] Pharmacist Internal Medicine 01/28/23 documented as of this encounter
--- OUTSIDE RECORDS SUMMARY | 2025-04-09 14:53 | XMS_ITS | Encounter Summary ---
Author Organization [employer] Address 75 [facility] 7 [place] [address] Care Team Providers Care Building Energy Retrofit Technician Name Role Phone Patito Wilhelm MD Primary Care Provider [phone] Wilber Christie PharmD Unavailable [phone] Reason for Visit * Reason Onset Date Comments Call Back Request 03/04/2025 Encounter Details Date Type Department Care Team ([facility] st Contact Info) Description 03/04/2025 Telephone [facility] 230 [place] [address] Patito Wilhelm MD 230 [place] [address] Call Back Request Social History Tobacco Use [...] [place] a [place] [facility] [place] was inquiring as to how much insulin should be administered tonight and tomorrow. Pt is currently on Novolog and is directed to take 25 units twice daily. Pt states she already called [facility] who directed her to inquire with PCP. Pt advised that this will be sent to PCP for advisement but message may not be ready immediately as PCP is seeing pt. * Telephone Encounter - Seema Hennessy - 03/04/2025 1:06 PM EST Tc from pt having surgery tomorrow pt want to know who much insulin take today . Please contact pt at [phone] documented in this encounter Plan of Treatment Upcoming Encounters Date Type Department Care Team (Late st Contact Info) Description 05/07/2025 1:30 PM EST Office Visit [address] [address] Patito Wilhelm MD [address] [place] [address] 05/10/2025 1:00 PM EST Medication Management [address] [address] Wilber Christie, PharmD [address] [place] [address] 06/11/2025 11:00 AM EST Office Visit [address] [address] documented as of this encounter Goals Goal [...] documented as of this encounter Care Teams Building Energy Retrofit Technician Relationship Specialty Start Date End Date Patito Wilhelm MD [address] [place] [address] PCP - General Family Medicine 11/13/18 Wilber Christie, PharmD [address] [place] [address] Pharmacist Internal Medicine 01/28/23 documented as of this encounter
--- OUTSIDE RECORDS SUMMARY | 2025-04-09 14:53 | XMS_ITS | Encounter Summary ---
Author Organization [employer] Address 75 [facility] 7t [place] [address] Care Team Providers Care Junior Media Buyer Name Role Phone Patito Wilhelm MD Primary Care Provider [phone] Wilber Christie PharmD Unavailable [phone] Reason for Visit * Reason Onset Date Comments triage 06/22/2022 Encounter Details Date Type Department Care Team ([facility] st Contact Info) Description 06/22/2022 Telephone [facility] 230 [place], [place] [phone] Patito Wilhelm MD [address] [place], [place] [phone] triage Social History Tobacco Use Types Packs/Day [...] Description 05/07/2025 1:30 PM EST Office Visit [facility] MED[facility] [address] [place] [address] Patito Wilhelm MD [address] [place] [address] 05/10/2025 1:00 PM EST Medication Management [facility] [address] [place] [address] Wilber Christie, PharmD [address] [place] [address] 06/11/2025 11:00 AM EST Office Visit [facility] [address] [place] [address] documented as of this encounter Visit Diagnoses Not on filedocumented in this encounter Care Teams Junior Media Buyer Relationship Specialty Start Date End Date Patito Wilhelm MD [address] [place] [address] PCP - General Family Medicine 11/13/18 Wilber Christie, PharmD [address] [place] [address] Pharmacist Internal Medicine 01/28/23 documented as of this encounter
--- OUTSIDE RECORDS SUMMARY | 2025-04-09 14:53 | XMS_ITS | Encounter Summary ---
Author Organization [employer] Address 75 [facility] 7t [place] [address] Care Team Providers Care Critical Care Physician Name Role Phone Patito Wilhelm MD Primary Care Provider [phone] Wilber Christie PharmD Unavailable [phone] Reason for Visit * Reason Comments Med Refill Encounter Details Date Type Department Care Team (Late st Contact Info) Description 03/27/2024 Refill [facility] [address] [place] [address] Patito Wilhelm MD 230 [place] [address] Type 2 diabetes mellitus with diabetic polyneuropathy, with long-term current use of insulin ([facility]) Social History Tobacco Use Types Packs/Day Years [...] Description 05/07/2025 1:30 PM EST Office Visit [address] [address] Patito Wlihelm MD [address] [place] [address] 05/10/2025 1:00 PM EST Medication Management [address] [address] Wilber Christie PharmD [address] [place] [address] 06/11/2025 11:00 AM EST Office Visit [address] [address] documented as of this encounter Goals Goal Patient Goal Type Associated Problems Recent Progress Patient-Stated? Author Blood Pressure < 140/90 Blood Pressure 120/60(2024 3:07 PM EDT) No Wilber Christie, PharmKit Hemoglobin A1c < 7 Result Component 6.1(10/20/202 5 3:10 PM EDT) No Wilber Christie, PharmD documented as of this encounter Visit Diagnoses Diagnosis Type 2 diabetes mellitus with diabetic polyneuropathy, with long-term current use of insulin (HCC) documented in this encounter Additional Health Concerns Assessment Noted Time PHQ-9 Depression Total Score: 11 024 1:39 PM EDT documented as of this encounter Care Teams Critical Care Physician Relationship Specialty Start Date End Date Patito Wilhelm MD 230 [place] [address] PCP - General Family Medicine 11/13/18 Wilber Christie, PharmD 230 [place] [address] Pharmacist Internal Medicine 01/28/23 documented as of this encounter
--- OUTSIDE RECORDS SUMMARY | 2025-04-09 14:53 | XMS_ITS | Encounter Summary ---
Author Organization [employer] Address 75 [facility] 7t [place] [address] Care Team Providers Care Cnmt Name Role Phone Patito Wilhelm MD Primary Care Provider [phone] Wilber Christie PharmD Unavailable [phone] Reason for Visit * Reason Onset Date Comments Med Refill 07/11/2024 Encounter Details Date Type Department Care Team (Late st Contact Info) Description 07/11/2024 Telephone [facility] 230 [place] [address] Patito Wilhelm MD 230 [place] [address] Med Refill Social History Tobacco Use Types [...] 5-325 MG tablet To be sent to: [address] [address] documented in this encounter Plan of Treatment Upcoming Encounters Date Type Department Care Team (Late st Contact Info) Description 05/07/2025 1:30 PM EST Office Visit [facility] [address] [place] [address] Patito Wilhelm MD 230 [place] [address] 05/10/2025 1:00 PM EST Medication Management [facility] [address] [place] [address] Wilber Christie, PharmD 230 [place] [address] 06/11/2025 11:00 AM EST Office Visit [facility] [address] [place] [address] documented as of this encounter Goals Goal [...] documented as of this encounter Care Teams Cnmt Relationship Specialty Start Date End Date Patito Wilhelm MD [address] [place] [address] PCP - General Family Medicine 11/13/18 Wilber Christie, Kaia [address] [place] [address] Pharmacist Internal Medicine 01/28/23 documented as of this encounter
--- OUTSIDE RECORDS SUMMARY | 2025-04-09 14:53 | XMS_ITS | Encounter Summary ---
Author Organization [employer] Address 75 [facility] 7t [place] [address] Care Team Providers Care Shell Worker Name Role Phone Patito Wilhelm MD Primary Care Provider [phone] Wilber Christie PharmD Unavailable [phone] Reason for Visit * Reason Onset Date Comments Nurse Triage 05/25/2024 Encounter Details Date Type Department Care Team ([facility] st Contact Info) Description 05/25/2024 Telephone [facility] MEDICINE 230 [place], [place] [phone] Patito Wilhelm MD 230 [place], [place] [phone] Nurse Triage Social History Tobacco Use Types [...] Will send this note to Walk in desktop engineer and Nurses as Pt. May be [...] Call Ahead Before Visiting Your Doctor (or TOUR COORDINATOR/PA) * Telephone Encounter - Jess Bunn - 05/25/2024 12:53 PM EST Symptoms: Low Blood Pressure - Caller Reports, Cough, Headache, Nausea But No Vomiting Outcome: Talk to a nurse or provider within 15 minutes Reason: Trouble walking The caller accepted this outcome. [phone] documented in this encounter Plan of Treatment Upcoming Encounters Date Type Department Care Team (Late st Contact Info) Description 05/07/2025 1:30 PM EST Office Visit [address] [address] Patito Wilhelm MD [address] [place] [address] 05/10/2025 1:00 PM EST Medication Management [address] [address] Wilber Christie, PharmD [address] [place] [address] 06/11/2025 11:00 AM EST Office Visit [address] [address] documented as of this encounter Goals Goal [...] documented as of this encounter Care Teams Shell Worker Relationship Specialty Start Date End Date Patito Wilhelm MD 230 [place] [address] PCP - General Family Medicine 11/13/18 Wilber Christie PharmD [address] [place] [address] Pharmacist Internal Medicine 01/28/23 documented as of this encounter
--- OUTSIDE RECORDS SUMMARY | 2025-04-09 14:53 | XMS_ITS | Encounter Summary ---
Author Organization [employer] Address 75 [facility] 7t [place] [address] Care Team Providers Care Gas Mask Inspector Name Role Phone Patito Wilhelm MD Primary Care Provider [phone] Wilber Christie PharmD Unavailable [phone] Reason for Visit * Reason Onset Date Comments Med Refill 01/04/2025 Encounter Details Date Type Department Care Team (Late st Contact Info) Description 01/04/[address] [facility] 230 [place] [address] Patito Wilhelm MD 230 [place] [address] Med Refill Social History Tobacco Use Types [...] MG tablet [facility] be [facility] to: [facility]/pharmacy #[id number] [place] [address] - [address] [place] [address] documented in this encounter Plan of Treatment Upcoming Encounters Date Type Department Care Team (Late st Contact Info) Description 05/07/2025 1:30 PM EST Office [address] [facility] [address] [place] [address] Patito Wilhelm MD [address] [place] [address] 05/10/2025 1:00 PM EST Medication Management [facility] [address] [place] [address] Wilber Christie, PharmD [address] [place] [address] 06/11/2025 11:00 AM EST Office Visit [facility] 230 [place] [address] documented as of this encounter Goals Goal Patient Goal Type Associated Problems Recent Progress Patient-Stated? Author Blood Pressure < 140/90 Blood Pressure 120/60(2024 3:07 PM EDT) No Wilber hCristie PharmD Hemoglobin A1c < 7 Result Component 6.1( 3:10 PM EDT) No Wilber Christie PharmD documented as of this encounter Visit Diagnoses Not on filedocumented in this encounter Additional Health Concerns Assessment Noted Time PHQ-9 Depression Total Score: 11 024 1:39 PM EDT documented as of this encounter Care Teams Gas Mask Inspector Relationship Specialty Start Date End Date Patito Wlihelm MD [address] [place] [address] PCP - General Family Medicine 11/13/18 Wilber Christie, Kaia [address] [place] [address] Pharmacist Internal Medicine 01/28/23 documented as of this encounter
--- OUTSIDE RECORDS SUMMARY | 2025-04-09 14:53 | XMS_ITS | Encounter Summary ---
Author Organization [employer] Address [address] [place] [address] [place] [address] Care Team Providers Care Room Worker Name Role Phone Patito Wilhelm MD Primary Care Provider Wilber Christie PharmD Unavailable Reason for Visit * Reason Comments Med Refill Encounter Details Date Type Department Care Team (Late Contact Info) Description 01/13/2023 Refill [facility]INE 230 [place] [address] Ashley Goodman MD 230 [place], [place] [phone] Chronic right shoulder pain Social History Tobacco [...] Description 05/07/2025 1:30 PM EST Office Visit [facility] [address] [place], [place] [phone] Patito Wilhelm MD 230 [place] [address] 05/10/2025 1:00 PM EST Medication Management [address] [address] Wilber Christie, PharmD [address] [place] [address] 06/11/2025 11:00 AM EST Office Visit [address] [address] documented as of this encounter Visit Diagnoses Diagnosis Chronic right shoulder pain Pain in joint, shoulder region documented in this encounter Additional Health Concerns Assessment Noted Time PHQ-9 Depression Total Score: 6 07/27/19 1:10 PM EDT documented as of this encounter Care Teams Room Worker Relationship Specialty Start Date End Date Patito Wilhelm MD [address] [place] [address] PCP - General Family Medicine 11/13/18 Wilber Christie, PharmD [address] [place] [address] Pharmacist Internal Medicine 01/28/23 documented as of this encounter
--- OUTSIDE RECORDS SUMMARY | 2025-04-09 14:53 | XMS_ITS | Encounter Summary ---
Author Organization [employer] Address 75 [facility] 7t [place] [address] Care Team Providers Care Respiratory Care Technician Name Role Phone Patito Wilhelm MD Primary Care Provider [phone] Wilber Christie PharmD Unavailable [phone] Reason for Visit * Reason Onset Date Comments PAP Smear 08/1008/11/2023 Encounter Details Date Type Department Care Team ([facility] st Contact Info) Description 08/11/[address] [facility] MEDICINE 230 [place] [address] Patito Wilhelm MD 230 [place], [place] [phone] PAP Smear 08/10 Social History Tobacco Use [...] stated she wasn't able ot make it, leader writer attempted to r/s but no availability. Tugboat Engineer advised pt call back August 16 r/s for October. documented in this encounter Plan of Treatment Upcoming Encounters Date Type Department Care Team (Late st Contact Info) Description 05/07/2025 1:30 PM EST Office Visit [facility]INE [address] [place] [address] Patito Wilhelm MD [address] [place] [address] 05/10/2025 1:00 PM EST Medication Management [address] [address] Wilber Christie, PennyD [address] [place] [address] 06/11/2025 11:00 AM EST Office Visit [address] [address] documented as of this encounter Goals Goal Patient Goal Type Associated Problems Recent Progress Patient-Stated? Author Blood Pressure < 140/90 Blood Pressure 120/60(2024 3:07 PM EDT) No Wilber Christie, PharmD Hemoglobin A1c < 7 Result Component 6.1( 5 3:10 PM EDT) No Wilber Christie PharmD documented as of this encounter Visit Diagnoses Not on filedocumented in this encounter Additional Health Concerns Assessment Noted Time PHQ-9 Depression Total Score: 6 07/27/19 23 1:10 PM EDT documented as of this encounter Care Teams Respiratory Care Technician Relationship Specialty Start Date End Date Patito Wilhelm MD 230 [place] [address] PCP - General Family Medicine 11/13/18 Wilber Chrsitie PharmD [address] [place] [address] Pharmacist Internal Medicine 01/28/23 documented as of this encounter
--- OUTSIDE RECORDS SUMMARY | 2025-04-09 14:53 | XMS_ITS | Encounter Summary ---
Author Organization [employer] Address 75 [facility] 7t [place] [address] Care Team Providers Care Clinic Office Coordinator Name Role Phone Patito Wilhelm MD Primary Care Provider [phone] Wilber Christie PharmD Unavailable [phone] Reason for Visit * Reason Onset Date Comments Med Refill 02/05/2025 Encounter Details Date Type Department Care Team (Late st Contact Info) Description 02/05/2025 Telephone [facility]INE 230 [place] [address] Patito Wilhelm MD 230 [place] [address] Med Refill Social History Tobacco Use Types [...] 5-325 MG tablet To be sent to: [facility]/pharmacy #[id number] [place] [address] - [address] [place] [address] documented in this encounter Plan of Treatment Upcoming Encounters Date Type Department Care Team (Late st Contact Info) Description 05/07/2025 1:30 PM EST Office Visit [facility]INE [address] [place] [address] Patito Wilhelm MD [address] [place] [address] 05/10/2025 1:00 PM EST Medication Management [facility] [address] [place] [address] Wilber Christie, PharmD [address] [place] [address] 06/11/2025 11:00 AM EST Office Visit [facility] [address] [place] [address] documented as of this encounter Goals Goal [...] documented as of this encounter Care Teams Clinic Office Coordinator Relationship Specialty Start Date End Date Patito Wilhelm MD [address] [place] [address] PCP - General Family Medicine 11/13/18 Wilber Christie PharmD [address] [place] [address] Pharmacist Internal Medicine 01/28/23 documented as of this encounter
--- OUTSIDE RECORDS SUMMARY | 2025-04-09 14:53 | XMS_ITS | Encounter Summary ---
Author Organization [employer] Address 75 [facility] 7t [place] [address] Care Team Providers Care Production Expert Name Role Phone Patito Wilhelm MD Primary Care Provider [phone] Wilber Christie PharmD Unavailable [phone] Reason for Visit * Reason Onset Date Comments Medication Question 12/03/2024 Encounter Details Date Type Department Care Team ([facility] st Contact Info) Description 12/03/2024 Telephone [facility] MEDICINE 230 [place], [place] [phone] Patito Wilhelm MD 230 [place], [place] [phone] Medication Question Social History Tobacco Use Types [...] Description 05/07/2025 1:30 PM EST Office Visit [facility] MEDICINE [address] [place] [phone] Patito Wilhelm MD 230 [place] [address] 05/10/2025 1:00 PM EST Medication Management [address] [address] Wilber Christie PharmD [address] [place] [address] 06/11/2025 11:00 AM EST Office Visit [address] [address] documented as of this encounter Goals Goal [...] as of this encounter Care Teams Production Expert Relationship Specialty Start Date End Date Patito Wilhelm MD [address] [place] [address] PCP - General Family Medicine 11/13/18 Wilber Christie PharmD [address] [place] [address] Pharmacist Internal Medicine 01/28/23 documented as of this encounter
--- OUTSIDE RECORDS SUMMARY | 2025-04-09 14:53 | XMS_ITS | Encounter Summary ---
Author Organization [employer] Address 75 [facility] 7t [place] [address] Care Team Providers Care Sales Program Manager Name Role Phone Patito Wilhelm MD Primary Care Provider [phone] Wilber Christie PharmD Unavailable [phone] Reason for Visit * Reason Onset Date Comments Med Refill 08/16/2024 Encounter Details Date Type Department Care Team (Late st Contact Info) Description 08/16/2024 Telephone [facility] 230 [place] [address] Patito Wilhelm MD 230 [place] [address] Med Refill Social History Tobacco Use Types [...] 5-325 MG tablet To be sent to: [address] [address] documented in this encounter Plan of Treatment Upcoming Encounters Date Type Department Care Team (Late st Contact Info) Description 05/07/2025 1:30 PM EST Office Visit [facility] [address] [place] [address] Patito Wilhelm MD 230 [place] [address] 05/10/2025 1:00 PM EST Medication Management [facility] [address] [place] [address] Wilber Christie, PharmD 230 [place] [address] 06/11/2025 11:00 AM EST Office Visit [facility] [address] [place] [address] documented as of this encounter Goals Goal [...] documented as of this encounter Care Teams Sales Program Manager Relationship Specialty Start Date End Date Patito Wilhelm MD [address] [place] [address] PCP - General Family Medicine 11/13/18 Wilber Christie, Kaia [address] [place] [address] Pharmacist Internal Medicine 01/28/23 documented as of this encounter
--- OUTSIDE RECORDS SUMMARY | 2025-04-09 14:54 | XMS_ITS | Encounter Summary ---
Author Organization [employer] Address 75 [facility] 7t [place] [address] Care Team Providers Care Mini Shifter Name Role Phone Patito Wilhelm MD Primary Care Provider [phone] Wilber Christie PharmD Unavailable Reason for Visit * Reason Onset Date Comments Med Refill 09/14/2024 Encounter Details Date Type Department Care Team (Late st Contact Info) Description 09/14/[address] [facility]INE 230 [place] [address] Patito Wilhelm MD 230 [place] [address] Med Refill Social History Tobacco Use Types [...] 5-325 MG tablet To be sent to: [facility]/pharmacy #[id number] [place], [place] - [address] [place] [address] documented in this encounter Plan of Treatment Upcoming Encounters Date Type Department Care Team (Late st Contact Info) Description 05/07/2025 1:30 PM EST Office Visit [facility] [address] [place] [address] Patito Wilhelm MD [address] [place] [address] 05/10/2025 1:00 PM EST Medication Management [facility] [address] [place] [address] Wilber Christie, PharmD [address] [place] [address] 06/11/2025 11:00 AM EST Office Visit [facility] 230 [place] [address] documented as of this encounter Goals Goal [...] documented as of this encounter Care Teams Mini Shifter Relationship Specialty Start Date End Date Patito Wilhelm MD [address] [place] [address] PCP - General Family Medicine 11/13/18 Wilber Christie PharmD [address] [place] [address] Pharmacist Internal Medicine 01/28/23 documented as of this encounter
--- OUTSIDE RECORDS SUMMARY | 2025-04-09 14:54 | XMS_ITS | Encounter Summary ---
Author Organization [employer] Address 75 [facility] 7t [place] [address] Care Team Providers Care Switch Inspector Name Role Phone Patito Wilhelm MD Primary Care Provider [phone] Wilber Christie PharmD Unavailable [phone] Reason for Visit * Reason Onset Date Comments Medication Question 03/19/2025 Encounter Details Date Type Department Care Team ([facility] st Contact Info) Description 03/19/[address] [facility] MEDICINE 230 [place], [place] [phone] Patito Wilhelm MD 230 [place], [place] [phone] Medication Question Social History Tobacco Use Types [...] call back regarding alternative Contact pt at [phone] documented in this encounter Plan of Treatment Upcoming Encounters Date Type Department Care Team (Late st Contact Info) Description 05/07/2025 1:30 PM EST Office Visit [facility] MED[facility] [address] [place] [address] Patito Wilhelm MD [address] [place] [address] 05/10/2025 1:00 PM EST Medication Management [facility] [address] [place] [address] Wilber Christie, PharmD [address] [place] [address] 06/11/2025 11:00 AM EST Office Visit [facility] 230 [place] [address] documented as of this encounter Goals Goal [...] has chronic kidney disease No Charmaine Carreon [facility] Patient has chronic kidney disease Care Plan Patient has chronic kidney disease No Charmaine Carreon [facility] Weekly blood pressure task Care [...] documented as of this encounter Care Teams Switch Inspector Relationship Specialty Start Date End Date Patito Wilhelm MD 230 [place] [address] PCP - General Family Medicine 11/13/18 Wilber Christie, PennyD 230 [place] [address] Pharmacist Internal Medicine 01/28/23 documented as of this encounter
--- OUTSIDE RECORDS SUMMARY | 2025-04-09 14:54 | XMS_ITS | Encounter Summary ---
Author Organization [employer] Address 75 [facility] 7t [place] [address] Care Team Providers Care Leaf Sucker Operator Name Role Phone Patito Wilhelm MD Primary Care Provider [phone] Wilber Christie PharmD Unavailable [phone] Reason for Visit * Reason Onset Date Comments Med Refill 12/02/2023 Encounter Details Date Type Department Care Team (Late st Contact Info) Description 12/02/2023 Refill [facility] MEDICINE 230 [place] [address] Patito Wilhelm MD 230 [place] [address] Chronic bilateral low back pain, unspecified whether [...] MG tablet To be sent to: [facility]/pharmacy #[id number] [place], [place] [address] [place] Prescription last filled on 11/04/23 0 Refills Left ENEDINA with PCP: 08/30/23 * Telephone Encounter - Rodrigue Lawton - 12/02/2023 10:30 AM EDT TC from pt requesting medication refill. Medications needing refill : oxyCODONE-acetaminophen (Percocet) 5-325 MG tablet To be sent to: [facility]/pharmacy #[employer] [facility] [place] documented in this encounter Plan of Treatment Upcoming Encounters Date Type Department Care Team (Late st Contact Info) Description 05/07/2025 1:30 PM EST Office Visit [address] [address] Patito Wilhelm MD [address] [place] [address] 05/10/2025 1:00 PM EST Medication Management [address] [phone] Wilber Christie PharmD [address] [place] [phone] 06/11/2025 11:00 AM EST Office Visit [address] [phone] documented as of this encounter Goals Goal [...] documented as of this encounter Care Teams Leaf Sucker Operator Relationship Specialty Start Date End Date Patito Wilhelm MD [address] [place] [address] PCP - General Family Medicine 11/13/18 Wilber Christie PharmD [address] [place] [address] [phone] Pharmacist Internal Medicine 01/28/23 documented as of this encounter
--- OUTSIDE RECORDS SUMMARY | 2025-04-09 14:54 | XMS_ITS | Encounter Summary ---
Author Organization [employer] Address [address] [place] [address] 7t [place] [address] Care Team Providers Care Sandblaster Glass Name Role Phone Patito Wilhelm MD Primary Care Provider [phone] Wilber Christie PharmD Unavailable Reason for Visit * Reason Comments Med Refill Encounter Details Date Type Department Care Team (Late Contact Info) Description 08/11/2022 Refill [facility] [address] [place] [address] Racquel uF MD [address] [place] [address] Social History Tobacco Use Types Packs/Day Years [...] Department Care Team (Late Contact Info) Description 05/07/2025 1:30 PM EST [facility] [place] [address] Patito Wilhelm [facility] [place] [address] 05/10/2025 1:00 PM EST Medication Management [facility] [address] Wilber Christie, Kaia [facility] [place] [address] 06/11/2025 11:00 AM EST Office Visit [facility] [place] [address] documented as of this encounter Visit Diagnoses Not on filedocumented in this encounter Additional Health Concerns Assessment Noted Time PHQ-9 Depression Total Score: 6 07/27/19 23 1:10 PM EDT documented as of this encounter Care Teams Sandblaster Glass Relationship Specialty Start Date End Date Patito Wilhelm MD [facility] [place] [address] PCP - General Family Medicine 11/13/18 Wilber Christie, Kaia [address] [place], [place] [address]my[place] [address] Pharmacist Internal Medicine 01/28/23 documented as of this encounter
--- OUTSIDE RECORDS SUMMARY | 2025-04-09 14:54 | XMS_ITS | Encounter Summary ---
Author Organization [employer] Address [address] [place] [address] 7 [place] [address] Care Team Providers Care Manager Balance Name Role Phone Patito Wilhelm MD Primary Care Provider [phone] Wilber Christie PharmD Unavailable [phone] Encounter Details Date Type Department Care Team (Latest Contact Info) Description 02/21/2019 Abstract [facility] CONVERSIONS Dental, Provider, DDS Social History Tobacco [...] Description 05/07/2025 1:30 PM EST Office Visit [address] [address] Patito Wilhelm MD [address] [place] [address] 05/10/2025 1:00 PM EST Medication Management [address] [address] Wilber Christie, PharmD [address] [place] [address] 06/11/2025 11:00 AM EST Office Visit [address] [place] [address] documented as of this encounter Visit Diagnoses Not on filedocumented in this encounter Care Teams Manager Balance Relationship Specialty Start Date End Date Patito Wilhelm MD [address] [place] [address] PCP - General Family Medicine 11/13/18 Wilber Christie, PennyD [address] [place] [address] Pharmacist Internal Medicine 01/28/23 documented as of this encounter
--- OUTSIDE RECORDS SUMMARY | 2025-04-09 14:54 | XMS_ITS | Patient Health Record ---
Author Organization [facility] Address [address] [place] [address] Care Team Providers Care Mangle Roll Operator Name Role Phone Choco GANDHI, Patito Primary Care Provider Leonardo Harding [phone] Allergies Allergen (clinical drug ingredient) Drug/Non Drug [...] Status Risk Notes Problem Colon cancer screening (236310515) Colon cancer screening (Z12.11) Active confirmed Problem Diverticular disease of colon (622810611) Diverticulosis of large intestine without perforation or abscess without bleeding (K57.30) Active confirmed Problem Irritable bowel syndrome with diarrhea (202843648) Irritable bowel syndrome with diarrhea (K58.0) Active confirmed Problem Right upper quadrant pain (332788877) Right upper quadrant pain (R10.11) Active confirmed Problem Nausea (016989153) Nausea (R11.0) Active confir med Problem Gastroesophageal reflux disease without esophagitis (631937731) Gastroesophageal reflux disease without esophagitis (K21.9) Active confirmed Problem Chronic hepatitis C (389870235) Chronic hepatitis C without hepatic coma (B18.2) Active confirmed Problem Chronic hepatitis C (215952826) Chronic hepatitis C (B18.2) Active confirmed Problem Right upper quadrant pain (395021942) Abdominal pain, right upper quadrant (R10.11) Active confirmed Problem Belching (49887485) Belching (R14.2) Active con firmed Problem History of hepatitis C (53550313856915) History of hepatitis C (Z86.19) Active confirmed Problem Right upper quadrant pain (320754202) RUQ abdominal pain (R10.11) Active confirmed Problem Irritable bowel syndrome (28329324) Irritable bowel syndrome, unspecified type (K58.9) Active confirmed Problem Gallbladder disease (43927145) Gallbladder sludge (K82.8) Active confirmed Problem Hepatic fibrosis (disorder) (21654786) Liver fibrosis (K74.00) Active confirmed Encounters Encounter Location Date Provider Diagnosis [facility] [address] [place] [address] 07/19/2024 Leonardo Stratton Plan Of Treatment Pending [...] Name:Leonardo Stratton , 05/31/2025 02:20:00 PM, [address], [address], [place], [address], Insurance Providers Payer Name Payer Address Payer Phone Subscriber Number Group Number Insured Name Patient Relationship to Insured Coverage Start Date Coverage End Date [facility] [address] Attn Claims JOSE Workman [phone] [id number] JAMEL NASSAR Self - patient is the [...] with hiatal hernia Irritable bowel syndrome Denies PR, stroke, and renal disease Fatty liver EGD [...]
--- OUTSIDE RECORDS SUMMARY | 2025-04-09 14:54 | XMS_ITS | Encounter Summary ---
Author Organization [employer] Address [address] [facility] 7 [place] [address] Care Team Providers Care Cost Accountant Name Role Phone Patito Wilhelm MD Primary Care Provider [phone] Wilber Christie PharmD Unavailable Reason for Visit * Reason Onset Date Comments Med Refill 03/04/2025 Encounter Details Date Type Department Care Team (Late st Contact Info) Description 03/04/2025 Telephone [facility] [address] [place] [address] Patito Wilhelm MD [address] [place] [address] Med Refill Social History Tobacco Use Types [...] 5-325 MG tablet To be sent to: [facility]/pharmacy #[id number] [place] [address] - [address] [place] [address] documented in this encounter Plan of Treatment Upcoming Encounters Date Type Department Care Team (Late st Contact Info) Description 05/07/2025 1:30 PM EST Office Visit [facility] [address] [place] [address] Patito Wilhelm MD [address] [place] [address] 05/10/2025 1:00 PM EST Medication Management [facility] [address] [place] [address] Wilber Christie, PharmD [address] [place] [address] 06/11/2025 11:00 AM EST Office Visit [facility] [address] [place] [address] documented as of this encounter Goals Goal [...] Patient has chronic kidney disease No Seema Henenssy Weekly blood pressure task Care Plan Weekly [...] documented as of this encounter Care Teams Cost Accountant Relationship Specialty Start Date End Date Patito Wilhelm MD [address] [place] [address] PCP - General Family Medicine 11/13/18 Wilber Christie, PennyD [address] [place] [address] Pharmacist Internal Medicine 01/28/23 documented as of this encounter
--- OUTSIDE RECORDS SUMMARY | 2025-04-09 14:54 | XMS_ITS | Encounter Summary ---
Author Organization [employer] Address [address] [facility] 7t [place] [address] Care Team Providers Care Underground Supervisor Name Role Phone Patito Wilhelm MD Primary Care Provider [phone] Wilber Christie PharmD Unavailable [phone] Reason for Visit * Reason Onset Date Comments Appointment Request 10/19/2023 Encounter Details Date Type Department Care Team ([facility] st Contact Info) Description 10/19/2023 Telephone [facility] [address] [place], [place] [phone] Patito Wilhelm MD [address] [place], [place] [phone] Appointment Request Social History Tobacco Use Types [...] week with PCP. Please contact pt at [phone] documented in this encounter Plan of Treatment Upcoming Encounters Date Type Department Care Team (Late st Contact Info) Description 05/07/2025 1:30 PM EST Office Visit [address] [address] Patito Wilhelm MD [address] [place] [address] 05/10/2025 1:00 PM EST Medication Management [address] [address] Wilber Christie, PharmD [address] [place] [address] 06/11/2025 11:00 AM EST Office Visit [address] [address] documented as of this encounter Goals Goal [...] documented as of this encounter Care Teams Underground Supervisor Relationship Specialty Start Date End Date Patito Wilhelm MD [address] [place] [address] PCP - General Family Medicine 11/13/18 Wilber Christie, PharmD [address] [place] [address] Pharmacist Internal Medicine 01/28/23 documented as of this encounter
--- OUTSIDE RECORDS SUMMARY | 2025-04-09 14:54 | XMS_ITS | Encounter Summary ---
Author Organization [employer] Address [address] [place] [address] 7 [place] [address] Care Team Providers Care Soil Scientist Name Role Phone Patito Wilheml MD Primary Care Provider [phone] Wilber Christie PharmD Unavailable Encounter Details Date Type Department Care Team (Latest Contact Info) Description 03/24/2020 Abstract [facility] CONVERSIONS Dental, Provider, DDS Social History [...] Description 05/07/2025 1:30 PM EST Office Visit [address] [address] Patito Wilhelm MD [address] [place] [address] 05/10/2025 1:00 PM EST Medication Management [address] [address] Wilber Christie, PharmD [address] [place] [address] 06/11/2025 11:00 AM EST Office Visit [address] [place] [address] documented as of this encounter Visit Diagnoses Not on filedocumented in this encounter Care Teams Soil Scientist Relationship Specialty Start Date End Date Patito Wilhelm MD [address] [place] [address] PCP - General Family Medicine 11/13/18 Wilber Christie, PennyD [address] [place] [address] Pharmacist Internal Medicine 01/28/23 documented as of this encounter
--- OUTSIDE RECORDS SUMMARY | 2025-04-09 14:54 | XMS_ITS | Encounter Summary ---
Author Organization [employer] Address [address] [facility] 7t [place] [address] Care Team Providers Care Orthotics Technician Name Role Phone Patito Wilhelm MD Primary Care Provider [phone] Wilber Christie PharmD Unavailable [phone] Reason for Visit * Reason Onset Date Comments Appointment Request 10/24/2023 Encounter Details Date Type Department Care Team ([facility] st Contact Info) Description 10/24/2023 Telephone [facility] [address] [place], [place] [phone] Patito Wilhelm MD [address] [place], [place] [phone] Appointment Request Social History Tobacco Use Types [...] Description 05/07/2025 1:30 PM EST Office Visit [address] [address] Patito Wilhelm MD [address] [place] [address] 05/10/2025 1:00 PM EST Medication Management [address] [address] Wilber Christie PharmD [address] [place] [address] 06/11/2025 11:00 AM EST Office Visit [address] [address] documented as of this encounter Goals Goal [...] documented as of this encounter Care Teams Orthotics Technician Relationship Specialty Start Date End Date Patito Wilhelm MD [address] [place] [address] PCP - General Family Medicine 11/13/18 Wilber Christie, Kaia [address] [place] [address] Pharmacist Internal Medicine 01/28/23 documented as of this encounter
== END 2025-04-09 14:01 | disposition home or self-care (01) ==
LOC: HO.HGS 13:43
PROVIDERS: PCP Family Medicine
DX: Z98.890 Other specified postprocedural states (principal); Z87.19 Personal history of other diseases of the digestive system
CPT/HCPCS: 99213

== ENCOUNTER → 2025-04-09 13:43 | Outpatient (BNVA) | payer OTHER, SELFPAY | PROVIDERS: PCP Family Medicine | DX: Z48.815 Encounter for surgical aftercare following surgery on the digestive system (principal); Z98.890 Other specified postprocedural states; Z87.19 Personal history of other diseases of the digestive system | CPT/HCPCS: 99212 ==